=== PATIENT | female | born 1995 | race Caucasian/White ===

== ENCOUNTER 2023-12-05 20:35 | Outpatient (REF) | payer MEDICAID, SELFPAY ==
[2023-12-12 16:09] LABS: Age Gdln ACOG Testing Note (.); IGP, rfx Aptima HPV ASCU Note (.)
== END 2023-12-05 20:36 | disposition home or self-care (01) ==
LOC: LAB 20:35
PROVIDERS: Visit Provider Obstetrics & Gynecology
DX: Z01.419 Encounter for gynecological examination (general) (routine) without abnormal findings (principal)
CPT/HCPCS: G0145

== ENCOUNTER 2024-03-25 12:29 | Emergency (ER) | payer MEDICAID, SELFPAY ==
[2024-03-25 12:37] VITALS: BP 114/71; PULSE 79; TEMP 37; O2SAT 97; BMI 27.8
--- NOTE | 2024-03-25 12:49 | ED_ITS ---
HPI - Abdominal Pain General Chief Complaint: Abdominal Pain Stated Complaint: ABDOMINAL/NAUSEA Time Seen by Provider: 03/25/24 12:45 Source: patient Mode of arrival: walk-in Limitations: no limitations History of Present Illness HPI narrative: 29-year-old female presents for a 3-week history of nausea and a 4 to 5-day history of pain. LMP was March 21. The pain is in the epigastric area. She is never had gallbladder or liver issues. She had a little bit of diarrhea a few days ago. No fever or vomiting or injury. The pain is intermittent. Related Data Home Medications ?Medication ?Instructions ?Recorded ?Confirmed fluoxetine 10 mg capsule 10 mg PO DAILY 03/25/24 03/25/24 ondansetron 4 mg disintegrating 4 mg PO Q8H PRN nausea and vomiting 03/25/24 03/25/24 tablet Previous Rx's ?Medication ?Instructions ?Recorded esomeprazole magnesium 40 mg 40 mg PO DAILY 28 days #28 caps 03/25/24 capsule,delayed release (Nexium) Allergies Allergy/AdvReac Type Severity Reaction Status Date / Time cephalexin [From Keflex] Allergy Severe Swelling Verified 03/25/24 12:37 of Lip/Tongue/Throat Review of Systems ROS Narrative A ten point review of systems is negative except as noted above. Exam Narrative Exam Narrative: Nurses note and vital signs reviewed and patient is not hypoxic. General: The patient appears well and in no apparent distress. Patient is resting comfortably on cart. Skin: Warm, dry, no pallor noted. There is no rash noted. Head: Normocephalic, atraumatic Eye: Normal conjunctiva, no drainage Ears, Nose, Mouth, and Throat: oral mucosa is moist. Nares patent. Cardiovascular: Regular Rate and Rhythm Respiratory: Patient is in no distress, no accessory muscle use, lungs are clear to auscultation, no wheezing, rales or rhonchi Back: non-tender GI: Mild tenderness in the epigastric area. No masses or distention. Musculoskeletal: The patient has no evidence of calf tenderness, no pitting edema, symmetrical pulses noted bilaterally Neurological: A&O, normal speech Psychiatric: Cooperative Constitutional Vital Signs, click to edit/add: Last Vital Signs Temp 98.6 F 03/25/24 12:37 Pulse 79 03/25/24 12:37 Resp 20 03/25/24 12:37 BP 114/71 03/25/24 12:37 Pulse Ox 97 03/25/24 12:37 O2 Del Method Room Air 03/25/24 12:37 Course Vital Signs Vital signs: Vital Signs Temperature 98.6 F 03/25/24 12:37 Pulse Rate 79 03/25/24 12:37 Respiratory Rate 20 03/25/24 12:37 Blood Pressure 114/71 03/25/24 12:37 Pulse Oximetry 97 03/25/24 12:37 Oxygen Delivery Method Room Air 03/25/24 12:37 Temperature 98.6 F 03/25/24 12:37 Pulse Rate 79 03/25/24 12:37 Respiratory Rate 20 03/25/24 12:37 Blood Pressure 114/71 03/25/24 12:37 Pulse Oximetry 97 03/25/24 12:37 Oxygen Delivery Method Room Air 03/25/24 12:37 MDM - Abdominal Pain MDM Narrative Medical decision making narrative: Laboratory analysis is negative. She will be prescribed Nexium. She will follow-up with her PCP if symptoms persist and if that occurs she may need to have a gallbladder ultrasound. Findings are discussed thoroughly with the patient and her mother. I do not clinically suspect an acute intra-abdominal process at this point. Differential Diagnosis Differential diagnosis: Likely abdominal pain, constipation, gastroenteritis, pancreatitis and other (Gallstones, GERD) Lab Data Attestation: I reviewed the patient's lab results. Labs: Lab Results 03/25/24 03/25/24 Range/Units 12:59 13:03 WBC 10.7 (4.0-11.0) 10^3/uL RBC 4.42 (4.20-5.40) 10^6/uL Hgb 13.1 (12.0-16.0) g/dL Hct 38.6 (36.0-48.0) % MCV 87.3 (81.0-99.0) fL MCH 29.6 (26.7-34.0) pg MCHC 33.9 (29.9-35.2) g/dL RDW 12.6 (11.0-15.0) % Plt Count 220 (150-450) 10^3/uL MPV 9.0 L (9.5-13.5) fL Neut % (Auto) 70.2 (43.0-75.0) % Lymph % (Auto) 15.6 L (20.5-60.0) % [place] % (Auto) 4.1 (1.7-12.0) % Eos % (Auto) 9.4 H (0.9-7.0) % Baso % (Auto) 0.5 (0.2-2.0) % Neut # (Auto) 7.5 H (1.4-6.5) 10^3/uL Lymph # (Auto) 1.7 (1.2-3.8) 10^3/uL [place] # (Auto) 0.4 (0.3-0.8) 10^3/uL Eos # (Auto) 1.0 H (0.0-0.7) 10^3/uL Baso # (Auto) 0.1 (0.0-0.1) 10^3/uL Abs Immat Gran (auto) 0.02 (0.00-0.03) 10^3/uL Imm/Tot Granulo (auto) 0.2 (0.0-0.5) % Sodium 140 (136-145) mmol/L Potassium 4.3 (3.5-5.1) mmol/L Chloride 103 (98-107) mmol/L Carbon Dioxide 30.9 (21.0-32.0) mmol/L Anion Gap 10.4 BUN 10.0 (7.0-18.0) mg/dL Creatinine 0.76 (0.55-1.02) mg/dL Est GFR ( Amer) >60 (>=60) Est GFR (Non-Af Amer) >60 (>=60) BUN/Creatinine Ratio 13.2 Glucose 95 (74-106) mg/dL Calcium 9.3 (8.5-10.1) mg/dL Total Bilirubin 0.3 (0.2-1.0) mg/dL Direct Bilirubin 0.1 (0.0-0.2) mg/dL AST 15 (15-37) U/L ALT 16 (14-59) U/L Alkaline Phosphatase 63 (46-116) U/L Total Protein 7.2 (6.4-8.2) g/dL Albumin 3.9 (3.4-5.0) g/dL Globulin 3.3 g/dL Albumin/Globulin Ratio 1.2 Amylase 42 (25-115) U/L Lipase 36.0 (16.0-77.0) U/L Serum HCG, Qual Negative (NEGATIVE) Urine Color Yellow (YELLOW) Urine Clarity Clear (CLEAR) Urine pH 6.0 (5.0-9.0) Ur Specific [place] >=1.030 A (1.005-1.025) Urine Protein Negative (NEG/TRACE) mg/dL Urine Glucose (UA) Negative (NEGATIVE) mg/dL Urine Ketones Negative (NEGATIVE) mg/dL Urine Occult Blood Small A (NEGATIVE) Urine Nitrite Negative (NEGATIVE) Urine Bilirubin Negative (NEGATIVE) Urine Urobilinogen 1.0 (0.2-1.0) EU/dL Ur Leukocyte Esterase Negative (NEGATIVE) Urine RBC 2-5 A (0-2) #/HPF Urine WBC 0-2 A (NONE SEEN) #/HPF Ur Squamous Epith Cells Few A (NONE/RARE) #/LPF Urine Crystals None seen (None Seen) #/HPF Urine Bacteria Trace A (NONE SEEN) #/HPF Urine Casts None seen (NONE SEEN) #/LPF Urine Mucus Trace A (NONE SEEN) Discharge Plan Discharge Stand Alone Forms: Portal Instructions Chief Complaint: Abdominal Pain Clinical Impression: Abdominal pain Patient Disposition: Home, Self-Care Time of Disposition Decision: 14:04 Condition: Good Mode of Transportation: Private Vehicle Prescriptions / Home Meds: New esomeprazole magnesium [Nexium] 40 mg capsule,delayed release(DR/EC) 40 mg PO DAILY 28 Days Qty: 28 0RF No Action fluoxetine 10 mg capsule 10 mg PO DAILY ondansetron 4 mg tablet,disintegrating 4 mg PO Q8H PRN (Reason: nausea and vomiting) Print Language: Romansh Instructions: Abdominal Pain (ED) Referrals: Physician,Non-Staff, MD [Physician] - 1 week
--- OUTSIDE RECORDS SUMMARY | 2024-03-25 13:03 | XMS_ITS | CCD ---
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 work note as she is self-employed. Will order 2 week event monitor for her syncopal episode. This may be related to vasovagal response due to using the restroom and coughing fit right before the episode happened. Patient should drink plenty of fluids water in sports drinks and get plenty of rest. She should follow-up for event monitor results and recheck of her anxiety/depression at the end of the month or beginning of March with her PCP. JAY LITTLE APRN-CNP 02/08/24 1255 documented in this encounter [facility] 01-03-2024 History of Presen t illness Narrative Images from the original note were not included. [address] [facility] [id number] SUBJECTIVE: Patient ID: Tara Bruno is a 28 y.o. female. Chief Complaint Patient presents with Anxiety Tara presents today wishing to restart medication for her moods. She does feel she ideally depressed. Her concern is anxiety, irritability, and feels short tempered. Is managing deal of personal stressors. Custody issues with her children's father who lives out of state. Has graduated from [employer]. 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 Depression Visit: Follow-up Initial visit: Onset: 1 to 6 months ago Progression since onset: Gradually worsening Symptoms: decreased concentration, excessive worry, irritability, malaise, muscle tension and nervous/anxious Symptoms: no chest pain, no palpitations and no shortness of breath Frequency: Most days Severity: Moderate Aggravated by: Anxiety and stress Sleep quality: Good Nighttime awakenings: None PMH includes: anxiety/panic attacks and depression Treatments tried: SSRIs and non-SSRI antidepressants Compliance with treatment: Good Follow-up visit: Symptoms: decreased concentration, depressed mood, irritability, malaise, muscle tension and nervous/anxious Frequency: Most days The following portions of the patient's history were reviewed and updated as appropriate: allergies, current medications, past family history, past medical history, past social history, past surgical history and problem list. Past Surgical History: Procedure Laterality Date CERVICAL BIOPSY W/ LOOP ELECTRODE EXCISION 10/12/2017 COLPOSCOPY LEEP CERVIX N/A 10/12/2017 Performed by Sarabjit Odom MD at [facility] TONSILLECTOMY WISDOM TOOTH EXTRACTION Past Medical History: Diagnosis Date Abnormal Pap smear of cervix HSIL (high grade squamous intraepithelial lesion) on Pap smear of cervix Immunization History Administered Date(s) Administered DTaP 1996, 1996, 1996, 06/14/1997, 07/30/2002 Hepatitis B 1996, 1996, 1996 HiB 1996, 1996, 1996, 06/14/1997 IPV 1996, 1996, 1996, 07/30/2002 MMR 06/14/1997, 07/30/2002 REVIEW OF SYSTEMS: Review of Systems Constitutional: Positive for irritability. Negative for chills and fever. HENT: Negative. Eyes: Negative for visual disturbance. Respiratory: Negative for chest tightness and shortness of breath. Cardiovascular: Negative for chest pain and palpitations. Gastrointestinal: Negative. Endocrine: Negative. Genitourinary: Negative for menstrual problem and pelvic pain. Musculoskeletal: Negative. Skin: Negative. Allergic/Immunologic: Negative. Neurological: Negative for syncope and facial asymmetry. Hematological: Does not bruise/bleed easily. Psychiatric/Behavioral: Positive for decreased concentration. The patient is nervous/anxious. PHYSICAL EXAMINATION: Vitals: 01/03/24 1016 BP: 102/58 BP Site: Left Arm BP Postition: Sitting Pulse: 72 Temp: 36.3 C (97.3 F) TempSrc: Temporal SpO2: 99% Weight: 72.5 kg (159 lb 12.8 oz) Height: 157.5 cm (5' 2 ) Patient noted to have elevated BMI and the following intervention(s) were applied: encouragement to exercise. Physical Exam Vitals and nursing note reviewed. Constitutional: General: She is not in acute distress. Appearance: She is well-developed. She is not diaphoretic. HENT: Head: Normocephalic and atraumatic. Right Ear: Tympanic membrane and external ear normal. Left Ear: Tympanic membrane and external ear normal. Nose: Nose normal. Mouth/Throat: Mouth: Mucous membranes are moist. Pharynx: No oropharyngeal exudate. Eyes: General: Right eye: No discharge. Left eye: No discharge. Conjunctiva/sclera: Conjunctivae normal. Pupils: Pupils are equal, round, and reactive to light. Neck: Thyroid: No thyromegaly. Vascular: No JVD. Cardiovascular: Rate and Rhythm: Normal rate and regular rhythm. Heart sounds: Normal heart sounds. No murmur heard. No friction rub. No gallop. Pulmonary: Effort: Pulmonary effort is normal. Breath sounds: Normal breath sounds. Abdominal: General: Bowel sounds are normal. There is no distension. Palpations: Abdomen is soft. There is no mass. Tenderness: There is no abdominal tenderness. Musculoskeletal: General: Normal range of motion. Cervical back: Normal range of motion and neck supple. Lymphadenopathy: Cervical: No cervical adenopathy. Skin: General: Skin is warm and dry. Capillary Refill: Capillary refill takes less than 2 seconds. Neurological: Mental Status: She is alert and oriented to person, place, and time. Deep Tendon Reflexes: Reflexes are normal and symmetric. Psychiatric: Mood and Affect: Mood normal. Behavior: Behavior normal. Thought Content: Thought content normal. Judgment: Judgment normal. ASSESSMENT/PLAN: Tara was seen today for anxiety. Diagnoses and all orders for this visit: Anxiety and depression - FLUoxetine (PROzac) 10 mg capsule; Take 1 capsule (10 mg total) by mouth in the morning. Depression: At risk (01/03/2024) PHQ-2 PHQ-2 Score: 5 Depression scoring is 5. She feels more anxious, irritable, and feels short tempered more than she is depressed. Discussed medication options today Agreeable to start fluoxetine 10 mg oral daily \.bmi Patient noted to have elevated BMI and the following intervention(s) were applied: Discussed current weight today. Consider healthy food choices, portion control. Avoid sugary beverages and high concentrated sweets. Routine exercise regimen encouraged. ALL QUESTIONS ANSWERED Total time spent was 25 minutes: Preparing to see the patient (e.g., review of tests) Obtaining and/or reviewing separately obtained history Performing a medically appropriate examination and/or evaluation Counseling and educating the patient/family/caregiver Ordering medications, tests, or procedures Follow-up: 7 weeks JAY Knight 01/03/24 1047 documented in this encounter [facility] Evaluation note Diagnosis Anxiety and depression- Primary [facility] Diagnosis Viral upper respiratory tract infection- Primary Acute upper respiratory infections of unspecified site Chills Chills (without fever) Epigastric pain Abdominal pain, epigastric Syncope and collapse Gastroesophageal reflux disease, unspecified whether esophagitis present documented in [facility] encounter [facility]* Diagnosis Acute bacterial sinusitis- Primary Acute sinusitis, unspecified documented [facility]* Attachments The following attachments cannot be sent through Care Everywhere. * Depression ([place]izen [place]) [facility] Attachments The following attachments cannot be sent through Care Everywhere. * Acid Reflux and GERD in Adults Discharge Instructions ([place]izen [place]) [facility] encounter[facility] Center[facility]ructionsNot on file [facility] Summary Purpose Family History No Family History Records FoundNo Family History Records FoundNo Family History Records FoundNo Family History Records FoundNo Family History Records Found Advance Directives No Advanced Directives Records FoundNo Advanced Directives Records FoundNo Advanced Directives Records FoundNo Advanced Directives Records FoundNo Advanced Directives Records Found Additional Source Comments INFORMATION SOURCE (unrecogn ized section and content) DATE CREATED AUTHOR 05/10/2018 [facility] DATE CREATED AUTHOR AUTHOR'S ORGANIZ ATION 12/02/2022 Lisbeth Martinez [facility] DATE CREATED AUTHOR AUTHOR'S ORGANIZ ATION 12/05/2023 [facility] DATE CREATED AUTHOR AUTHOR'S ORGANIZ ATION 02/28/2024 [facility] DATE CREATED AUTHOR AUTHOR'S ORGANIZ ATION 03/13/2024 [facility] Reason for Visit (unrecogniz ed section and content) Reason Comments Anxiety Reason Comments Cough Cough,body aches, he adache Care Teams (unrecognized sec tion and content) Power Regulator Relationship Specialty Start Date End Date Matt Sandra APRN-YVES [address] [place] [id number] PCP - General Family Medicine 10/16/19 Power Regulator Relationship Specialty Start Date End Date Matt Sandra APRN-CNP [address] [place] [id number] PCP - General Family Medicine 10/16/19 FOR RECORDS PERTAINING TO PATIENTS WHO ARE OR HAVE BEEN ENROLLED IN A CHEMICAL DEPENDENCY/SUBSTANCEABUSE PROGRAM, SOME INFORMATION MAY BE OMITTED. This clinical summary was aggregated from multiple sources. Caution should be exercised in using it in the provision of clinical care. This summary normalizes information from multiple sources, and as a consequence, information in this document may materially change the coding, format and clinical context of patient data. In addition, data may be omitted in some cases. CLINICAL DECISIONS SHOULD BE BASED ON THE PRIMARY CLINICAL RECORDS. [facility] [employer] [facility]. provides no warranty or guarantee of the accuracy or completeness of information in this document.
[2024-03-25 13:07] LABS: Basophils Absolute Auto 0.1 10^3/uL (0.0-0.1); Basophils Percent Auto 0.5 % (0.2-2.0); Eosinophils Percent Auto 9.4 % (0.9-7.0); Hematocrit 38.6 % (36.0-48.0); Hemoglobin 13.1 g/dL (12.0-16.0); Immature Granulocytes Abs Auto 0.02 10^3/uL (0.00-0.03); Immature Granulocytes Pct Auto 0.2 % (0.0-0.5); Lymphocytes Absolute Auto 1.7 10^3/uL (1.2-3.8); Lymphocytes Percent Auto 15.6 % (20.5-60.0); Mean Corpuscular HGB Conc 33.9 g/dL (29.9-35.2); Mean Corpuscular Hemoglobin 29.6 pg (26.7-34.0); Mean Corpuscular Volume 87.3 fL (81.0-99.0); Monocytes Absolute Auto 0.4 10^3/uL (0.3-0.8); Monocytes Percent Auto 4.1 % (1.7-12.0); Neutrophils Absolute Auto 7.5 10^3/uL (1.4-6.5); Neutrophils Percent Auto 70.2 % (43.0-75.0); Platelet Count 220 10^3/uL (150-450); Red Blood Count 4.42 10^6/uL (4.20-5.40); Red Cell Distribution Width 12.6 % (11.0-15.0); White Blood Count 10.7 10^3/uL (4.0-11.0)
[2024-03-25 13:08] LABS: Bilirubin Urine NEGATIVE (NEGATIVE); Blood Urine SMALL (NEGATIVE); Clarity Urine CLEAR (CLEAR); Color Urine YELLOW (YELLOW); Glucose Urine UA NEGATIVE (NEGATIVE); Ketones Urine NEGATIVE (NEGATIVE); Leukocyte Esterase Urine NEGATIVE (NEGATIVE); Nitrite Urine NEGATIVE (NEGATIVE); Protein Urine NEGATIVE (NEG/TRACE); Specific Gravity Urine >=1.030 (1.005-1.025)
[2024-03-25 13:16] LABS: HCG Qualitative NEGATIVE (NEGATIVE)
[2024-03-25 13:19] LABS: Bacteria Urine TRACE #/HPF (NONE SEEN); Cast Seen? NONE SEEN #/LPF (NONE SEEN); Crystals Seen? None Seen #/HPF (None Seen); Mucus Urine TRACE (NONE SEEN); Squamous Epithelial Cell Urine FEW #/LPF (NONE/RARE); WBC Urine 0-2 #/HPF (NONE SEEN)
[2024-03-25 13:23] LABS: Alanine Aminotransferase 16 U/L (14-59); Albumin Globulin Ratio 1.2; Albumin Level 3.9 g/dL (3.4-5.0); Alkaline Phosphatase 63 U/L (46-116); Amylase 42 U/L (25-115); Anion Gap 10.4; Aspartate Amino Transferase 15 U/L (15-37); BUN Creatinine Ratio 13.2; Bilirubin Direct 0.1 mg/dL (0.0-0.2); Bilirubin Total 0.3 mg/dL (0.2-1.0); Calcium 9.3 mg/dL (8.5-10.1); Carbon Dioxide 30.9 mmol/L (21.0-32.0); Chloride 103 mmol/L (98-107); Estimated GFR (African America >60 (>=60); Estimated GFR (Non-African Ame >60 (>=60); Globulin 3.3 g/dL; Glucose 95 mg/dL (74-106); Potassium 4.3 mmol/L (3.5-5.1); Sodium 140 mmol/L (136-145); Total Protein 7.2 g/dL (6.4-8.2)
[2024-03-25 14:25] VITALS: PULSE 70; O2SAT 98
== END 2024-03-25 14:27 | disposition home or self-care (01) ==
PROVIDERS: Emergency Provider Emergency Medicine; PCP Nurse Practitioner
DX: R10.9 Unspecified abdominal pain (principal); R11.0 Nausea
CPT/HCPCS: 36415; 80048; 80076; 81001; 82150; 83690; 84703; 85025; 99283

== ENCOUNTER 2024-03-29 12:41 | Emergency (ER) | payer MEDICAID, SELFPAY ==
[2024-03-29 12:45] VITALS: BP 141/88; PULSE 82; TEMP 36.9; O2SAT 99; BMI 27.8
--- NOTE | 2024-03-29 13:02 | ED.ABDPAIN1 ---
HPI - Abdominal Pain General Chief Complaint: Abdominal Pain Stated Complaint: STOMACH PAIN Time Seen by Provider: 03/29/24 12:48 Source: patient Mode of arrival: walk-in Limitations: no limitations History of Present Illness HPI narrative: This patient is here complaining of epigastric pain. She was seen here couple days ago and she is in the middle of the workup. The pain does not occur in the evening hours. She had laboratory testing done previously and was going to follow-up with her primary care doctor but came back to the ER because her pain. She rates it as about a 7. She does not have family history of biliary disease. The pain has some radiation to the back but its mostly in the midline in the epigastric area. She says it feels like a giant air bubble. Is not associated with fever. She ate a lot of fruit and a eggs spinach feta cheese breakfast this morning at 9:30 AM. She has never had upper or lower endoscopy. She has not had blood in her stool. She is on a acid jill that darted 2 days ago. Related Data Home Medications ?Medication ?Instructions ?Recorded ?Confirmed fluoxetine 10 mg capsule 10 mg PO DAILY 03/25/24 03/29/24 Previous Rx's ?Medication ?Instructions ?Recorded esomeprazole magnesium 40 mg 40 mg PO DAILY 28 days #28 caps 03/25/24 capsule,delayed release (Nexium) Allergies Allergy/AdvReac Type Severity Reaction Status Date / Time cephalexin [From Keflex] Allergy Severe Swelling Verified 03/25/24 12:37 of Lip/Tongue/Throat Exam Narrative Exam Narrative: Awake alert oriented x 3 does not appear an extremis. Vital signs are stable she is afebrile. ENT does not show any evidence of pallor or anemia or scleral icterus. Abdominal examination shows her to have negative Valdes sign. Most of her symptomatic discomfort is in the epigastric area. There is no guarding rebound rigidity or peritoneal findings. Thoracic examination she has no chest discomfort or shortness of breath. Her legs are not swollen. Constitutional Vital Signs, click to edit/add: Last Vital Signs Temp 98.4 F 03/29/24 12:45 Pulse 82 03/29/24 12:45 Resp 18 03/29/24 12:45 BP 141/88 03/29/24 12:45 Pulse Ox 99 03/29/24 12:45 O2 Del Method Room Air 03/29/24 12:45 Course Vital Signs Vital signs: Vital Signs Temperature 98.4 F 03/29/24 12:45 Pulse Rate 82 03/29/24 12:45 Respiratory Rate 18 03/29/24 12:45 Blood Pressure 141/88 03/29/24 12:45 Pulse Oximetry 99 03/29/24 12:45 Oxygen Delivery Method Room Air 03/29/24 12:45 Temperature 98.4 F 03/29/24 12:45 Pulse Rate 82 03/29/24 12:45 Respiratory Rate 18 03/29/24 12:45 Blood Pressure 141/88 03/29/24 12:45 Pulse Oximetry 99 03/29/24 12:45 Oxygen Delivery Method Room Air 03/29/24 12:45 MDM - Abdominal Pain MDM Narrative Medical decision making narrative: Patient presents with epigastric discomfort. She has eaten a fair amount of food today and is not eligible for emergency department ultrasonography. Her repeat laboratory test do not show any change from her previous studies and are stable. Her symptoms are less suggestive of biliary disease and they are other etiologies. I do not believe there is emergency medical condition I will give her an order for outpatient ultrasonography to be sent the results to her primary care doctor. She can continue her acid jill medications. Lab Data Labs: Lab Results 03/29/24 Range/Units 13:01 WBC 7.2 (4.0-11.0) 10^3/uL RBC 4.44 (4.20-5.40) 10^6/uL Hgb 13.2 (12.0-16.0) g/dL Hct 38.5 (36.0-48.0) % MCV 86.7 (81.0-99.0) fL MCH 29.7 (26.7-34.0) pg MCHC 34.3 (29.9-35.2) g/dL RDW 12.3 (11.0-15.0) % Plt Count 215 (150-450) 10^3/uL MPV 9.2 L (9.5-13.5) fL Neut % (Auto) 47.5 (43.0-75.0) % Lymph % (Auto) 29.2 (20.5-60.0) % Fulton % (Auto) 5.0 (1.7-12.0) % Eos % (Auto) 17.4 H (0.9-7.0) % Baso % (Auto) 0.6 (0.2-2.0) % Neut # (Auto) 3.4 (1.4-6.5) 10^3/uL Lymph # (Auto) 2.1 (1.2-3.8) 10^3/uL Fulton # (Auto) 0.4 (0.3-0.8) 10^3/uL Eos # (Auto) 1.3 H (0.0-0.7) 10^3/uL Baso # (Auto) 0.0 (0.0-0.1) 10^3/uL Abs Immat Gran (auto) 0.02 (0.00-0.03) 10^3/uL Imm/Tot Granulo (auto) 0.3 (0.0-0.5) % Sodium 139 (136-145) mmol/L Potassium 3.7 (3.5-5.1) mmol/L Chloride 103 (98-107) mmol/L Carbon Dioxide 29.7 (21.0-32.0) mmol/L Anion Gap 10.0 BUN 11.0 (7.0-18.0) mg/dL Creatinine 0.66 (0.55-1.02) mg/dL Est GFR ( Amer) >60 (>=60) Est GFR (Non-Af Amer) >60 (>=60) BUN/Creatinine Ratio 16.7 Glucose 80 (74-106) mg/dL Calcium 8.8 (8.5-10.1) mg/dL Total Bilirubin 0.4 (0.2-1.0) mg/dL AST 15 (15-37) U/L ALT 19 (14-59) U/L Alkaline Phosphatase 64 (46-116) U/L Total Protein 7.5 (6.4-8.2) g/dL Albumin 4.1 (3.4-5.0) g/dL Globulin 3.4 g/dL Albumin/Globulin Ratio 1.2 Lipase 50.0 (16.0-77.0) U/L Discharge Plan Discharge Stand Alone Forms: Portal Instructions Chief Complaint: Abdominal Pain Clinical Impression: Abdominal pain Patient Disposition: Home, Self-Care Time of Disposition Decision: 14:05 Prescriptions / Home Meds: No Action fluoxetine 10 mg capsule 10 mg PO DAILY esomeprazole magnesium [Nexium] 40 mg capsule,delayed release(DR/EC) 40 mg PO DAILY 28 Days Qty: 28 0RF Print Language: Hungarian Additional Instructions: Continue present medications. Have your gallbladder ultrasound. Referrals: MATT BRODERICK [Primary Care Provider] - 1 week
[2024-03-29 13:26] LABS: Basophils Percent Auto 0.6 % (0.2-2.0); Eosinophils Absolute Auto 1.3 10^3/uL (0.0-0.7); Eosinophils Percent Auto 17.4 % (0.9-7.0); Hematocrit 38.5 % (36.0-48.0); Hemoglobin 13.2 g/dL (12.0-16.0); Immature Granulocytes Abs Auto 0.02 10^3/uL (0.00-0.03); Immature Granulocytes Pct Auto 0.3 % (0.0-0.5); Lymphocytes Absolute Auto 2.1 10^3/uL (1.2-3.8); Lymphocytes Percent Auto 29.2 % (20.5-60.0); Mean Corpuscular HGB Conc 34.3 g/dL (29.9-35.2); Mean Corpuscular Hemoglobin 29.7 pg (26.7-34.0); Mean Corpuscular Volume 86.7 fL (81.0-99.0); Mean Platelet Volume 9.2 fL (9.5-13.5); Monocytes Absolute Auto 0.4 10^3/uL (0.3-0.8); Neutrophils Absolute Auto 3.4 10^3/uL (1.4-6.5); Neutrophils Percent Auto 47.5 % (43.0-75.0); Platelet Count 215 10^3/uL (150-450); Red Blood Count 4.44 10^6/uL (4.20-5.40); Red Cell Distribution Width 12.3 % (11.0-15.0); White Blood Count 7.2 10^3/uL (4.0-11.0)
[2024-03-29 13:40] LABS: Alanine Aminotransferase 19 U/L (14-59); Albumin Globulin Ratio 1.2; Albumin Level 4.1 g/dL (3.4-5.0); Alkaline Phosphatase 64 U/L (46-116); Aspartate Amino Transferase 15 U/L (15-37); BUN Creatinine Ratio 16.7; Bilirubin Total 0.4 mg/dL (0.2-1.0); Calcium 8.8 mg/dL (8.5-10.1); Carbon Dioxide 29.7 mmol/L (21.0-32.0); Chloride 103 mmol/L (98-107); Estimated GFR (African America >60 (>=60); Estimated GFR (Non-African Ame >60 (>=60); Globulin 3.4 g/dL; Glucose 80 mg/dL (74-106); Potassium 3.7 mmol/L (3.5-5.1); Sodium 139 mmol/L (136-145); Total Protein 7.5 g/dL (6.4-8.2)
== END 2024-03-29 14:25 | disposition home or self-care (01) ==
PROVIDERS: Emergency Provider Emergency Medicine Emergency Medical Services; PCP Nurse Practitioner
DX: R10.13 Epigastric pain (principal)
CPT/HCPCS: 36415; 80053; 83690; 85025; 99283

== ENCOUNTER 2024-03-30 06:59 | Outpatient (OUT) | payer MEDICAID, SELFPAY ==
--- OUTSIDE RECORDS SUMMARY | 2024-03-30 07:01 | XMS_ITS | CCD ---
Author Organization [facility] Care Team Providers Care Ocean Export Coordinator Name Role Phone PEDRO, DR TRAN Admitting Unavailable PEDRO, DR TRAN Attending Unavailable SNADRA, MATT Primary Care Unavailable PEDRO, DR TRAN Consulting Unavailable PEDRO, DR TRAN Admitting Unavailable PEDRO, DR TRAN Attending Unavailable PEDRO, DR TRAN Consulting Unavailable SANDRA, MATT Primary Care Unavailable Zieber, DR Paez Consulting Unavailable PEDRO, DR TRAN Admitting Unavailable PEDRO, DR TRAN Attending Unavailable SANDRA, MATT Primary Care Unavailable PEDRO, DR TRAN Consulting Unavailable SAHARA APODACA Consulting Unavailable CHELSEA VASQUEZ Attending Unavailable Sandra COCONUT CANDY MAKER-Matt MARINELLI Primary Care Provid er CUCO ABDULLAHI [...] (1 source) Cephalexin Drug Allergy 11-14-2011 [facility] Repository (5 sources) Cephalexin; Translations: [CEPHALEXIN] Drug [...] 02-08-2024 External Poct Influenza A Antigen Negative [facility] External Poct Influenza B Antigen Negative [facility] SARS-CoV-2 (COVID-19) Ag IA.rapid Ql (Resp) Negative [facility] POCT rapid strep Aon 024 Internal Critical Care Nurse Specialist Check Completed and Passed Yes [facility] Interpretation and review of laboratory results Normal [facility] S. pyogenes Ag IA Ql (Unsp spec) Negative Negative [facility] US PELVIS AND TRANSVAGon US PELVIS AND [...] by: SAHARA APODACA Date: 2022-12-01 08:05 Normal [facility] US PELVIS TRANSVAGon 022 US PELVIS [...] by: YAMEL GOMEZ Date: 2022-02-10 14:27 Normal [facility] Vital Signs Date Time Vital Sign Value Performing Clinician Faci lity 02-08-2024 11:53-0400 Body height 157.5 cm Cuco Abdullahi C[employer]ON[employer] CANDY MAKER-TRAINING CONSULTANT Work Phone: [facility] [employer] [facility] 02-08-2024 11:53-0400 Body mass index (BMI) [Ratio] 28.9 kg/m2 Cuco Abdullahi [employer] MAKER-TRAINING CONSULTANT Work Phone: [facility] [employer] [facility] 02-08-2024 11:53-0400 Body temperature 98.2 [degF] Cuco Abdullahi [employer] MAKER-TRAINING CONSULTANT Work Phone: [facility] [employer] [facility] 02-08-2024 11:53-0400 Body weight 71.67 kg Cuco Abdullahi [employer] MAKER-TRAINING CONSULTANT Work Phone: [facility] 02-08-2024 11:53-0400 Diastolic blood pressure 68 mm[Hg] Cuco Abdullahi [employer] MAKER-TRAINING CONSULTANT Work Phone: [facility] [employer] [facility] 02-08-2024 11:53-0400 Heart rate 97 /min Cuco Abdullahi [employer] MAKER-TRAINING CONSULTANT Work Phone: [facility] [employer] [facility] 02-08-2024 11:53-0400 Respiratory rate 18 /min Cuco Abdullahi [employer] MAKER-TRAINING CONSULTANT Work Phone: [facility] 02-08-2024 11:53-0400 SaO2% (BldA) [Mass fraction] 97 % Cuco Abdullahi [employer] MAKER-TRAINING CONSULTANT Work Phone: [facility] 02-08-2024 11:53-0400 Systolic blood pressure 112 mm[Hg] Cuco Abdullahi C[employer]ON[employer] MAKER-TRAINING CONSULTANT Work Phone: [facility] [employer] [facility] 01-03-2024 10:16-0500 Body height 157.5 cm Matt Sandra APRN-TRAINING CONSULTANT Work Phone: [facility] 01-03-2024 10:16-0500 Body mass index (BMI) [Ratio] 29.23 kg/m2 Matt Sandra [employer] MAKER-TRAINING CONSULTANT Work Phone: [facility] 01-03-2024 10:16-0500 Body temperature 97.3 [degF] Matt Sandra APRN-TRAINING CONSULTANT Work Phone: [facility] 01-03-2024 10:16-0500 Body weight 72.48 kg Matt Sandra APRN-TRAINING CONSULTANT Work Phone: [facility] 01-03-2024 10:16-0500 Diastolic blood pressure 58 mm[Hg] Matt Sandra APRN-TRAINING CONSULTANT Work Phone: [facility] 01-03-2024 10:16-0500 Heart rate 72 /min Matt Sandra APRN-TRAINING CONSULTANT Work Phone: [facility] 01-03-2024 10:16-0500 SaO2% (BldA) [Mass fraction] 99 % Matt Sandrakale ALVAREZ-TRAINING CONSULTANT Work Phone: [facility] 01-03-2024 10:16-0500 Systolic blood pressure 102 mm[Hg] Mattelizabeth Sandra APRN-TRAINING CONSULTANT Work Phone: [facility] Encounters Encounter Date Encounter Type Care Provider Facility Start: 03-12-2024 End: 03-12-2024 ambulatory [facility] Start: 02-27-2024 End: 02-28-2024 ambulatory [facility] Start: 02-09-2024 Telephone encounter Mikala Murphy CMA [facility] Start: 02-08-2024 End: 02-08-2024 ambulatory [facility] Start: 02-08-2024 End: 02-08-2024 Office outpatient visit 15 minutes [facility] COCONUT CANDY MAKERTRAINING CONSULTANT Work Phone: [facility] Comment on above: Viral upper respirat ory tract infection (Primary Dx); Chills; Epigastric pain; Syncope and collapse; Gastroesophageal reflux disease, unspecified whether esophagitis present Start: 01-03-2024 End: 01-03-2024 ambulatory MATT SANDRA [facility] Start: 01-03-2024 End: 01-03-2024 Office outpatient visit 15 minutes Matt Sandra C[employer]ON[employer] CANDY MAKER-TRAINING CONSULTANT Work Phone: [facility] Comment on above: Anxiety and depressi on (Primary Dx) Start: 12-05-2023 End: 12-05-2023 ambulatory CHELSEA VASQUEZ Not Available Start: 12-01-2022 End: 12-01-[address] CHELSEA VASQUEZ Facility:[facility] Start: 11-30-2022 End: 12-01-[address] CHELSEA VASQUEZ Facility:[facility] Start: 02-10-2022 End: 02-11-[address] CHELSEA VASQUEZ Facility:[facility] Start: 07-29-2017 End: 07-29-2017 Emergency department patient visit [facility] Procedures Date Procedure Procedure Detail Performing Clinician Start: 03-12-2024 Follow-up visit Follow-up MATT SANDRA Start: 02-08-2024 Iaadiadoo streptococ cus group a Cuco Abdullahi C[employer]ON[employer] CANDY MAKER-TRAINING CONSULTANT Work Phone: Start: 02-08-2024 POCT INFLUENZA A/INF LUENZA B/SARS-COV-2 VERITOR Cuco Abdullahi C[employer]ONUT CANDY MAKER-TRAINING CONSULTANT Work Phone: Start: 02-08-2024 Adult depression scr eening assessment Cuco Abdullahi COCON[employer] CANDY MAKER-TRAINING CONSULTANT Work Phone: Start: 01-03-2024 Adult depression scr eening assessment Matt Sandra COCONUT CANDY MAKER-TRAINING CONSULTANT Work Phone: Start: 08-09-2018 Microscopic observat ion [Identifier] in Cervix by Cyto stain Matt Sandra [employer]ON[employer] CANDY MAKER-TRAINING CONSULTANT Work Phone: Plan of Treatment Date Care Activity Detail Author Start: 02-07-2025 Adult BMI Screening Adult BMI Screen ing [facility] Start: 02-07-2025 Depression Screening Depression Scre ening [facility] Start: 02-07-2025 Tobacco Screening Tobacco Screening [facility] Start: 01-03-2025 Adult BMI Follow Up Plan Adult BMI Follow Up Plan [facility] Start: 01-03-2025 Adult BMI Screening Adult BMI Screen ing [facility] Start: 01-03-2025 Depression Screening Depression Scre ening [facility] Start: 01-03-2025 Tobacco Screening Tobacco Screening [facility] Start: 03-12-2024 End: 03-12-2024 Patient encounter procedure 03/12/2024 11:20 AM EDT Office Visit [facility] [address] [place] [address] Matt Sandra, COCONUT CANDY MAKER-TRAINING CONSULTANT [address] [place] [address] [facility] Start: 02-21-2024 End: 02-21-2024 Patient encounter procedure 02/21/2024 9:40 AM EDT Office Visit [facility] [address] [place] [address] Matt Sandra, COCONUT CANDY MAKER-TRAINING CONSULTANT [address] [place] [address] [facility] Start: 02-08-2024 End: 02-07-2025 Event monitor Event monitor Cardiac Services Routine Syncope and collapse Expected: 02/08/2024, Expires: 02/07/2025 [facility] Work Phone: Comment on above: Expected: 02/08/2024 , Expires: 02/07/2025 Start: 08-09-2021 Screening for malign ant neoplasm of cervix Pap Smear [facility] Start: 02-02-2007 DTaP,Tdap and Td Vaccines (6 - Tdap) DTaP,Tdap and Td Vaccines (6 - Tdap) [facility] Immunizations Immunization Date Immunization Notes Care Provider Fa cilimarianne 07-30-2002 diphtheria, tetanus toxoids and acellular pertussis vaccine Matt Sandra COCONUT CANDY MAKER-TRAINING CONSULTANT Work Phone: [facility] 07-30-2002 measles, mumps and rubella virus vaccine Matt Boaz COCON[employer] CANDY MAKER-[facility] Work Phone: [facility] 07-30-2002 poliovirus vaccine, inactivated Matt Sandra COCON[employer] CANDY MAKER-[facility] Work Phone: [facility] 06-14-1997 diphtheria, tetanus toxoids and acellular pertussis vaccine Matt Boaz [employer]AND[employer] MAKER-[facility] Work Phone: [facility] 06-14-1997 haemophilus influenz ae type b vaccine, conjugate unspecified formulation Matt Sandra [employer]ON[employer] CANDY MAKER-[facility] Work Phone: [facility] 06-14-1997 measles, mumps and rubella virus vaccine Matt Sandra [employer]ON[employer] CANDY MAKER-[facility] Work Phone: [facility] 1996 diphtheria, tetanus toxoids and acellular pertussis vaccine Matt Boaz C[employer]ON[employer] CANDY MAKER-[facility] Work Phone: [facility] 1996 haemophilus influenz ae type b vaccine, conjugate unspecified formulation Matt Boaz [facility] Work Phone: [facility] 1996 hepatitis B vaccine, adult dosage Matt Boaz COCONUT CANDY MAKER-[facility] Work Phone: [facility] 1996 poliovirus vaccine, inactivated Matt Boaz [employer]ON[employer] CANDY MAKER-[facility] Work Phone: [facility] 1996 diphtheria, tetanus toxoids and acellular pertussis vaccine Matt Boaz [employer]ON[employer] CAND[employer] MAKER-[facility] Work Phone: [facility] 1996 haemophilus influenz ae type b vaccine, conjugate unspecified formulation Matt Sandra [employer]ON[employer] CANDY MAKER-[facility] Work Phone: [facility] 1996 poliovirus vaccine, inactivated Matt Sandra [employer]ON[employer] CANDY MAKER-[facility] Work Phone: [facility] 1996 diphtheria, tetanus toxoids and acellular pertussis vaccine Matt Sandra [facility] Work Phone: [facility] 1996 haemophilus influenz ae type b vaccine, conjugate unspecified formulation Matt Sandra [facility] Work Phone: [facility] 1996 hepatitis B vaccine, adult dosage Matt Sandra [facility] Work Phone: [facility] 1996 poliovirus vaccine, inactivated Matt [facility] Work Phone: [facility] 1996 hepatitis B vaccine, adult dosage Matt Sandra [facility] Work Phone: [facility] Payers Date Payer Category Payer Medicaid [id number] 2022 Medicaid [place] MED[place] [id number] 2022-Present [address] [place] [address] [id number] 2017 Unknown [id number] 1996 Unknown [id number] 1996 Unknown [id number] 1996 Unknown [id number] 1996 Unknown [id number] 1996 Unknown [id number] 1996 Unknown [id number] 1996 Unknown [id number] 1996 Unknown [id number] 1959 Unknown [id number] Social History Date Type Detail Facility Start: 01-03-2024 Tobacco smoking stat RUSTIS Never smoked tobacco [facility] Start: 01-03-2024 Tobacco use and exposure Smoke less tobacco non-user [facility] Start: 01-03-2024 End: 02-08-2024 Alcohol intake Current non-drinker of alcohol (finding) [facility] Start: 10-15-2021 End: 02-08-2024 History of Social function [facility] Start: 10-15-2021 End: 02-08-2024 Social connection and isolation panel [facility] Do you belong to any clubs or organizations such as worship groups, unions, fraternal or athletic groups, or school groups? No [facility] Are you now , , , , never or living with a partner? Never [facility] How often to you hav e a drink containing alcohol? Monthly or less [facility] How many standard dr inks containing alcohol do you have on a typical day? 1 or 2 [facility] How often do you hav e 6 or more drinks on 1 occasion? Less than monthly [facility] How hard is it for y ou to pay for the very basics like food, housing, medical care, and heating Somewhat hard [facility] Adolescent depressio n screening assessment 5 [facility] Do you feel stress - tense, restless, nervous, or anxious, or unable to sleep at night because your mind is troubled all the time - these days [OSQ] Rather much [facility] Start: 10-19-2019 Education 12 [facility] Start: 1995 Sex Assigned At Not on file P [facility] Clinical Notes 01-03-2024 to 02-09-2024 Telephone Encounter [...] to her local pharmacy? Zpak sent to [email or web address] pharmacy. 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 I called and read your note. Pt will get scheduled after this illness documented in this encounter [facility] 02-09-2024 Telephone encount er Note Pt called and was in to see you yesterday 02/07 and is stuffed up today and coughing up yellow. Could you send in something to her local pharmacy? [facility] 02-09-2024 Telephone encount er Note Zpak sent to [email or web address] pharmacy. 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 [facility] 02-09-2024 Telephone encount er Note I called and read your note. Pt will get scheduled after this illness [facility] 02-08-2024 History of Presen t illness Narrative [address] [place] [address] Patient: Tara Bruno Date of : 1995 [...] 10/12/2017 Performed by Sarabjit Odom MD at [facility] TONSILLECTOMY WISDOM TOOTH EXTRACTION Current Outpatient Medications [...] APRN-CNP 02/08/24 1255 documented in this encounter [facility] 01-03-2024 History of Presen t illness Narrative Images from the original note were not included. [address] [facility] [address] SUBJECTIVE: Patient ID: Tara Bruno is a 28 y.o. female. Chief Complaint Patient presents with Anxiety Tara presents today wishing to restart medication for her moods. She does feel she ideally depressed. Her concern is anxiety, irritability, and feels short tempered. Is managing deal of personal stressors. Custody issues with her children's father who lives out of state. Has graduated from [employer]. 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 Depression [...] 10/12/2017 Performed by Sarabjit Odom MD at [facility] TONSILLECTOMY WISDOM TOOTH EXTRACTION Past Medical [...] Knight 01/03/24 1047 documented in this encounter [facility] Evaluation note Diagnosis Anxiety and depression- Primary documented in this encounter [facility] Diagnosis Viral upper respiratory tract infection- Primary Acute upper respiratory infections of unspecified site Chills Chills (without fever) Epigastric pain Abdominal pain, epigastric Syncope and collapse Gastroesophageal reflux disease, unspecified whether esophagitis present documented in this encounter [facility] Diagnosis Acute bacterial sinusitis- Primary Acute sinusitis, unspecified documented in this encounter [facility]* Attachments The following attachments cannot be sent through Care Everywhere. * Depression (Lithuanian) [facility] Attachments The following attachments cannot be sent through Care Everywhere. * Acid Reflux and GERD in Adults Discharge Instructions (Lithuanian) documented [facility] [place]ructions[place] [facility] [place] Summary Purpose Family History No Family History [...] AUTHOR AUTHOR'S ORGANIZ ATION 12/02/2022 [facility] DATE CREATED AUTHOR AUTHOR'S ORGANIZ ATION 12/05/2023 [facility] DATE CREATED AUTHOR AUTHOR'S ORGANIZ ATION 02/28/2024 [facility] DATE CREATED AUTHOR AUTHOR'S ORGANIZ ATION 03/13/2024 [facility] Reason for Visit (unrecogniz ed section and content) Reason Comments Anxiety Reason Comments Cough Cough,body aches, he adache Care Teams (unrecognized sec tion and content) Ocean [employer] Coordinator Relationship Specialty Start Date End Date Matt Sandra APRN-YVES [address] [place] [address] PCP - General Family Medicine 10/16/19 [employer] Coordinator Relationship Specialty Start Date End Date Matt Sandra APRN-CNP [address] [place] [address] PCP - General Family Medicine 10/16/19 FOR [...] BE BASED ON THE PRIMARY CLINICAL RECORDS. [facility]. provides no warranty or guarantee of the accuracy or completeness of information in this document.
--- NOTE | 2024-03-30 07:02 | US_ITS ---
[address] [address] Patient Name: BRANDIE BRUNO MRN: [id number] date: 1995 Sex: F Assigned Patient Location: US Current Patient Location: Accession/Order Number: [id number] Exam Date: 03/30/2024 07:03 Report Date: 03/30/2024 07:36 At the request of: FCO BARBA Procedure: US right upper quadrant EXAM: US right upper quadrant HISTORY: Gallstones COMPARISON: None. TECHNIQUE: Grayscale, color and Doppler FINDINGS: The liver is normal in size, contour and echotexture measuring 14.7 cm in length. No focal hepatic mass. Hepatopedal flow in the main portal vein with a velocity of 37 cm/s. The gallbladder is normal in size. The wall measures 2 mm, normal. Negative sonographic Valdes sign. Common bile duct measures 2 mm, normal. The visualized pancreas is normal The right kidney is normal measuring 11.2 x 5.5 x 4.3 cm. No solid mass, hydronephrosis or obstructing nephrolithiasis US/US right upper quadrant IMPRESSION: Normal exam Electronically authenticated by: SAHARA TOLEDO Date: 03/30/2024 07:36
== END 2024-03-30 07:00 | disposition home or self-care (01) ==
LOC: US 06:59
PROVIDERS: PCP Nurse Practitioner; Visit Provider Emergency Medicine Emergency Medical Services
DX: K80.20 Calculus of gallbladder without cholecystitis without obstruction (principal)
CPT/HCPCS: 76705

== ENCOUNTER 2024-12-11 20:38 | Outpatient (REF) | payer MEDICAID, SELFPAY ==
--- OUTSIDE RECORDS SUMMARY | 2024-12-11 20:43 | XMS_ITS | CCD ---
Author Organization [facility] Care Team Providers Care Eyeglass Fitter Name Role Phone PEDRO, DR TRAN Admitting [...] TRAN Consulting Unavailable SAHARA APODACA Consulting Unavailable PEDRO, CHELSEA Attending Unavailable Sandra PALLIATIVE NURSE-TONGUER, Matt J Primary Care [facility] er CUCO ABDULLAHI Referring Unavailable SANDRA, MATT J Primary Care Unavailable CUCO ABDULLAHI Attending Unavailable SANDRA, MATT J Referring Unavailable SANDRA, MATT J Primary Care Unavailable SANDRA, MATT J Attending Unavailable SANDRA, MATT J Referring Unavailable SANDRA, MATT J Primary Care Unavailable SANDRA, MATT J Attending Unavailable SANDRA, MATT J Referring Unavailable SANDRA, MATT J Primary Care Unavailable Allergies Allergy Classification Reported Allergen(s) Allergy Type Date of Onset Reaction(s) Facility (1 source) Cephalexin Drug Allergy 11-14-2011 [facility] Repository (6 sources) Cephalexin; Translations: [CEPHALEXIN] Drug Allergy 07-29-2017 Anaphylaxis [facility] Medications Current Medications Medication Drug Class(es) Dates Sig (Normalized) Sig (Original) azithromycin 250 mg oral tablet (1 source) Macrolide Antimicrobial Start: 02-09-2024 End: 02-13-2024 azithromycin (ZITHROMAX) 250 mg tablet Indications: Acute bacterial sinusitis Take 2 tablets the first day, then 1 tablet daily for 4 days. 6 tablet 0 02/09/2024 02/13/2024 Active FLUoxetine 10 mg oral capsule (5 sources) Serotonin Reuptake Inhibitor Start: 01-03-2024 End: 03-12-2024 take 1 capsule by mouth in the morning FLUoxetine (PROzac) 10 mg capsule Indications: Anxiety and depression Take 1 capsule (10 mg total) by mouth in the morning. 90 capsule 1 03/12/2024 Active ondansetron 4 mg disintegrating oral tablet (1 source) Serotonin-3 Receptor Antagonist Start: 03-12-2024 take 1 tablet by mouth every eight hours as needed for nausea and vomiting and nausea and nausea ondansetron ODT (ZOFRAN ODT) 4 mg disintegrating tablet Indications: Nausea Dissolve 1 tablet (4 mg total) on tongue every 8 (eight) hours as needed for nausea or vomiting. 12 tablet 03/12/2024 Active Completed/Discontinued Medications Medication Drug Class(es) Dates [...] Problem Date Documented Date Episodic/Chronic Abdominal pain (12 sources) Pelvic and perineal pain; Translations: [Epigastric pain] Onset: 10-22-2019 Episodic Anxiety disorders (4 sources) Mixed anxiety and depressive disorder; Translations: [...] HUMAN PAPILLOMAVIRUS] Onset: 12-01-2022 Episodic Mood disorders (5 sources) Mood disorders; Translations: [Depression, unspecified] Onset: 01-03-2024 Resolved: 03-12-2024 01-03-2024 Nausea and vomiting (2 sources) Nausea; Translations: [Nausea] Onset: 03-12-2024 03-12-2024 Episodic Other lower respiratory disease (1 [...] [Chills (without fever)] Onset: 02-08-2024 Episodic Syncope (4 sources) Syncope and collapse; Translations: [Syncope and collapse] Onset: 02-08-2024 02-08-2024 Episodic Past or Other Problems Problem Classification Problem Date Documented Date Episodic/Chronic Cancer of cervix (4 sources) Cervicovaginal cytology: 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; Translations: [High grade squamous intraepithelial lesion on cytologic smear of cervix (HGSIL)] Onset: 09-14-2017 Resolved: 10-22-2019 10-22-2019 Episodic Other connective tissue disease (1 source) Other muscle spasm; Translations: [Other muscle spasm] Onset: 07-29-2017 Episodic Ovarian cyst (1 source) Unspecified ovarian cyst, left side; Translations: [UNSPECIFIED OVARIAN CYST LEFT SIDE] Onset: 02-12-2022 Episodic Unclassified (4 sources) Onset: 01-03-2024 Resolved: 03-12-2024 01-03-2024 Results Test Name Value Interpretation Reference Range Facil ity POCT , urineon 02-13 Beta HCG ( test) Ql (U) Negative [facility] POCT Influenza A/Influenza B /SARS-COV-2 VeritorOrdered By: Ellie Ruvalcaba on 02-08-2024 External Poct Influenza A Antigen Negative [facility] External Poct Influenza B Antigen Negative [facility] SARS-CoV-2 (COVID-19) Ag IA.rapid Ql (Resp) Negative [facility] POCT rapid strep Aon 024 Internal Care Taker Check Completed and Passed Yes [facility] Interpretation and review of laboratory results Normal [facility] S. pyogenes Ag IA Ql (Unsp spec) Negative Negative [facility] US PELVIS AND TRANSVAGon US PELVIS [...] by: SAHARA APODACA Date: 2022-12-01 08:05 Normal [facility] US PELVIS TRANSVAGon 022 US PELVIS TRANSVAG [...] by: YAMEL GOMEZ Date: 2022-02-10 14:27 Normal [facility] Vital Signs Date Time Vital Sign Value Performing Clinician Senthil montgomery 07-03-2024 15:040 Body height 157.48 cm [facility] 07-03-2024 15:040 Body mass index (BMI) [Ratio] 29.2 kg/m2 [facility] 07-03-2024 15: Body weight 72.57 kg [facility] 03-12-2024 11:040 Body height 157.5 cm Matt Sandraloreta THOMPSON Work Phone: [facility] 03-12-2024 11:21-0400 Body mass index (BMI) [Ratio] 28.55 kg/m2 Matt Sandraloreta ALVAREZ-TONGUER Work Phone: [facility] 03-12-2024 11:21-0400 Body temperature 98.1 [degF] Matt Sandraloreta ALVAREZ-TONGUER Work Phone: [facility] 03-12-2024 11:21-0400 Body weight 70.81 kg Matt Sandraloreta ALVAREZ-TONGUER Work Phone: [facility] [employer] [facility] 03-12-2024 11:21-0400 Diastolic blood pressure 68 mm[Hg] Matt Sandra APRN-TONGUER Work Phone: [facility] 03-12-2024 11:21-0400 Heart rate 79 /min Matt Sandraloreta ALVAREZ-TONGUER Work Phone: [facility] 03-12-2024 11:21-0400 Respiratory rate 20 /min Matt Sandra APRN-TONGUER Work Phone: [facility] 03-12-2024 11:21-0400 SaO2% (BldA) [Mass fraction] 100 % Matt Sandra APRN-TONGUER Work Phone: [facility] 03-12-2024 11:21-0400 Systolic blood pressure 110 mm[Hg] Matt Sandra PALLIATIVE NURSE-TONGUER Work Phone: [facility] 02-08-2024 11:53-0400 Body height 157.5 cm Cuco Abdullahi PALLIATIVE NURSE-TONGUER Work Phone: [facility] 02-08-2024 11:53-0400 Body mass index (BMI) [Ratio] 28.9 kg/m2 Cuco Abdullahi PALLIATIVE NURSE-TONGUER Work Phone: [facility] 02-08-2024 11:53-0400 Body temperature 98.2 [degF] Cuco Abdullahi PALLIATIVE NURSE-TONGUER Work Phone: [facility] [employer] [facility] 02-08-2024 11:53-0400 Body weight 71.67 kg Cuco Abdullahi PALLIATIVE NURSE-TONGUER Work Phone: [facility] 02-08-2024 11:53-0400 Diastolic blood pressure 68 mm[Hg] uCco Abdullahi PALLIATIVE NURSE-TONGUER Work Phone: [facility] 02-08-2024 11:53-0400 Heart rate 97 /min Cucobradley Abdullahi PALLIATIVE NURSE-TONGUER Work Phone: [facility] [employer] [facility] 02-08-2024 11:53-0400 Respiratory rate 18 /min Cuco Abdullahi PALLIATIVE NURSE-TONGUER Work Phone: [facility] 02-08-2024 11:53-0400 SaO2% (BldA) [Mass fraction] 97 % Cucobradley Abdullahi PALLIATIVE NURSE-TONGUER Work Phone: [facility] 02-08-2024 11:53-0400 Systolic blood pressure 112 mm[Hg] Cuco Abdullahi APRN-TONGUER [facility] 01-03-2024 10:16-0500 Body height 157.5 cm Matt Sandra APRN-TONGUER [facility] 01-03-2024 10:16-0500 Body mass index (BMI) [Ratio] 29.23 kg/m2 Matt Sandra APRN-TONGUER [facility] 01-03-2024 10:16-0500 Body temperature 97.3 [degF] Matt Sandra APRN-TONGUER [facility] 01-03-2024 10:16-0500 Body weight 72.48 kg Matt Sandra PALLIATIVE NURSE-TONGUER [facility] 01-03-2024 10:16-0500 Diastolic blood pressure 58 mm[Hg] Matt Sandra PALLIATIVE NURSE-TONGUER [facility] 01-03-2024 10:16-0500 Heart rate 72 /min Matt Sandra APRN-TONGUER [facility] 01-03-2024 10:16-0500 SaO2% (BldA) [Mass fraction] 99 % Matt Sandra APRN-TONGUER [facility] 01-03-2024 10:16-0500 Systolic blood pressure 102 mm[Hg] Matt Sandra PALLIATIVE NURSE-TONGUER [facility] En[facility]ters Encounter Date Encounter Type Care Provider Facility Start: 07-03-2024 End: 07-03-2024 ambulatory [facility] Work Phone: Start: 07-03-2024 End: 07-03-2024 Patient encounter procedure [facility] Work Phone: Start: 04-10-2024 Non-patient / Non-visit [facility] Work Phone: Start: 03-12-2024 End: 03-12-2024 ambulatory [facility] Start: 03-12-2024 End: 03-12-2024 Office outpatient visit 15 minutes Matt Sandra PALLIATIVE NURSE-TONGUER Work Phone: [facility] Comment on above: Anxiety and depressi on (Primary Dx); Nausea; Syncope, unspecified syncope type Start: 02-27-2024 End: 02-28-2024 [facility] Start: 02-09-2024 Telephone encounter Mikala sultana CMA [facility] Start: 02-08-2024 End: 02-08-2024 ambulatory [facility] Start: 02-08-2024 End: 02-08-2024 Office outpatient visit 15 minutes [facility] PALLIATIVE NURSE-TONGUER Work Phone: [facility] Comment on above: Viral upper respirat ory tract infection (Primary Dx); Chills; Epigastric pain; Syncope and collapse; Gastroesophageal reflux disease, unspecified whether esophagitis present Start: 01-03-2024 End: 01-03-2024 ambulatory [facility] Start: 01-03-2024 End: 01-03-2024 Office outpatient visit 15 minutes Matt Sandra PALLIATIVE NURSE-TONGUER Work Phone: [facility] Comment on above: Anxiety and depressi on (Primary Dx) Start: 12-05-2023 End: 12-05-2023 ambulatory CHELSEA VASQUEZ Not Available Start: 12-01-2022 End: 12-01-[address] CHELSEA VASQUEZ Facility:[facility] Start: 11-30-2022 End: 12-01-[address] CHELSEA VASQUEZ Facility:[facility] Start: 02-10-2022 End: 02-11-[address] CHELSEA VASQUEZ Facility:[facility] Start: 07-29-2017 End: 07-29-2017 Emergency department patient visit [facility] Procedures Date Procedure Procedure Detail Performing Clinician Start: 03-12-2024 Follow-up visit Follow-up MATT SANDRA Start: 03-12-2024 Urine test visual color cmprsn meths Matt Sandra PALLIATIVE NURSE-[facility] Work Phone: Start: 03-12-2024 Adult depression scr eening assessment Matt Sandra PALLIATIVE NURSE-[facility] Work Phone: Start: 02-08-2024 Iaadiadoo streptococ cus group a Cuco Abdullahi PALLIATIVE NURSEEnrich Social ProductionsTONGUER Work Phone: Start: 02-08-2024 POCT INFLUENZA A/INF LUENZA B/SARS-COV-2 VERITOR Cuco Garcia Osmany PALLIATIVE NURSEEnrich Social ProductionsTONGUER Work Phone: Start: 02-08-2024 Adult depression scr eening assessment Cucobradley Abdullahi PALLIATIVE NURSE-[facility] Work Phone: Start: 01-03-2024 Adult depression scr eening assessment Matt Ascencioillo PALLIATIVE NURSE-[facility] Work Phone: Start: 08-09-2018 Microscopic observat ion [Identifier] in Cervix by Cyto stain Matt Sandra PALLIATIVE NURSEEnrich Social [facility] Work Phone: Plan of Treatment Date Care Activity Detail Author Start: 03-12-2025 Adult BMI Screening Adult BMI Screen ing [facility] Start: 03-12-2025 [facility] Start: 03-12-2025 Tobacco Screening Tobacco Screening [facility] Start: 02-07-2025 Adult BMI Screening Adult BMI Screen ing [facility] Start: 02-07-2025 Depression Screening Depression Scre ening [facility] Start: 02-07-2025 Tobacco Screening Tobacco Screening [facility] Start: 01-03-2025 Adult BMI Follow Up Plan Adult BMI Follow Up Plan [facility] Start: 01-03-2025 Adult BMI Screening Adult BMI Screen ing [facility] Start: 01-03-2025 Depression Screening Depression Scre ening [facility] Start: 01-03-2025 Tobacco Screening Tobacco Screening [facility] Start: 03-12-2024 End: 03-12-2024 Patient encounter procedure 03/12/2024 11:20 AM EDT Office Visit [facility] [address] [place] [address] Matt Sandra, PALLIATIVE NURSE-TONGUER [address] [place] [address] [facility] Start: 02-21-2024 End: 02-21-2024 Patient encounter procedure 02/21/2024 9:40 AM EDT Office Visit [facility] [address] [place] [address] Matt Sandra, PALLIATIVE NURSE-TONGUER [address] [place] [address] [facility] Start: 02-08-2024 End: 02-07-2025 Event monitor Event monitor Cardiac Services Routine Syncope and collapse Expected: 02/08/2024, Expires: 02/07/2025 [facility] Work Phone: Comment on above: Expected: 02/08/2024 , Expires: 02/07/2025 Start: 08-09-2021 Screening for malign ant neoplasm of cervix Pap Smear [facility] Start: 02-02-2007 DTaP,Tdap and Td Vaccines (6 - Tdap) DTaP,Tdap and Td Vaccines (6 - Tdap) [facility] End: 03-12-2025 Basic metabolic 2000 panel - Serum or Plasma Basic Metabolic Panel Lab Routine Nausea 1 Occurrences starting 03/12/2024 until 03/12/[address] [facility] Comment on above: 1 Occurrences starti ng 03/12/2024 until 03/12/2025 End: 03-12-2025 CBC W Auto Differential panel - Blood CBC auto differential Lab Routine Nausea 1 Occurrences starting 03/12/2024 until 03/12/2025 [facility] Work [facility]: Comment on above: 1 Occurrences starti ng 03/12/2024 until 03/12/2025 Hepatic function panel [facility] US Abdomen limited [facility] Immunizations Immunization Date Immunization Notes Care Provider Fa cilimarianne 07-30-2002 diphtheria, tetanus toxoids and acellular pertussis vaccine Matt Sandra PALLIATIVE NURSE-[facility] Work Phone: [facility] 07-30-2002 measles, mumps and rubella virus vaccine Matt Sandra PALLIATIVE NURSE-[facility] Work Phone: [facility] 07-30-2002 poliovirus vaccine, inactivated Matt Sandra PALLIATIVE NURSE-[facility] Work Phone: [facility] 06-14-1997 diphtheria, tetanus toxoids and acellular pertussis vaccine Matt Sandra PALLIATIVE NURSE-[facility] Work Phone: [facility] 06-14-1997 haemophilus influenz ae type b vaccine, conjugate unspecified formulation Matt Sandra PALLIATIVE NURSE-[facility] Work Phone: [facility] 06-14-1997 measles, mumps and rubella virus vaccine Matt Sandra PALLIATIVE NURSE-[facility] Work Phone: [facility] 1996 diphtheria, tetanus toxoids and acellular pertussis vaccine Matt Sandra PALLIATIVE NURSE-[facility] Work Phone: [facility] 1996 haemophilus influenz ae type b vaccine, conjugate unspecified formulation Matt Sandra PALLIATIVE NURSE-[facility] Work Phone: [facility] 1996 hepatitis B vaccine, adult dosage Matt Sandra PALLIATIVE NURSE-[facility] Work Phone: [facility] 1996 poliovirus vaccine, inactivated Matt Sandra PALLIATIVE NURSE-[facility] Work Phone: [facility] 1996 diphtheria, tetanus toxoids and acellular pertussis vaccine Matt Sandra PALLIATIVE NURSE-TONGUER Work Phone: [facility] 1996 haemophilus influenz ae type b vaccine, conjugate unspecified formulation Matt Sandra PALLIATIVE NURSE-TONGUER Work Phone: [facility] 1996 poliovirus vaccine, inactivated Matt Sandra PALLIATIVE NURSE-TONGUER Work Phone: [facility] 1996 diphtheria, tetanus toxoids and acellular pertussis vaccine Matt Sandra PALLIATIVE NURSE-TONGUER Work Phone: [facility] 1996 haemophilus influenz ae type b vaccine, conjugate unspecified formulation Matt Sandra PALLIATIVE NURSE-TONGUER Work Phone: [facility] 1996 hepatitis B vaccine, adult dosage Matt Sandra PALLIATIVE NURSE-TONGUER Work Phone: [facility] 1996 poliovirus vaccine, inactivated Matt Sandra PALLIATIVE NURSE-TONGUER Work Phone: [facility] 1996 hepatitis B vaccine, adult dosage Matt Sandra PALLIATIVE NURSE-TONGUER Work Phone: [facility] Payers Date Payer Category Payer Medicaid [id number] 2022 Medicaid [place] [id number] 2022-Present [address] [place] [address] [id number] 2017 Unknown [id number] 1996 Unknown [id number] 1996 Unknown [id number] 1996 Unknown [id number] 1996 Unknown [id number] 1996 Unknown [id number] 1996 Unknown [id number] 1996 Unknown [id number] 1996 Unknown [id number] 1959 Unknown [id number] Social History Date Type Detail Facility Start: 01-03-2024 End: 07-03-2024 Tobacco smoking status MAIS Never smoked tobacco [facility] Start: 01-03-2024 Tobacco use and exposure Smoke less tobacco non-user [facility] Start: 01-03-2024 End: 03-12-2024 Alcohol intake Current non-drinker of alcohol (finding) [facility] Start: 10-15-2021 End: 03-12-2024 History of Social function [facility] Start: 10-15-2021 End: 03-12-2024 Social connection and isolation panel [facility] Do you belong to any clubs or organizations such as sikh groups, unions, fraternal or athletic groups, or school groups? No [facility] Are you now , , , , never or living with a partner? Never [facility] How often to you hav e a drink containing alcohol? Monthly or less [facility] How many standard dr inks containing alcohol do you have on a typical day? 1 or 2 [facility] How often do you hav e 6 or more drinks on 1 occasion? Less than monthly [facility] How hard is it for y ou to pay for the very basics like food, housing, medical care, and heating Somewhat hard [facility] Adolescent depressio n screening assessment 5 [facility] Do you feel stress - tense, restless, nervous, or anxious, or unable to sleep at night because your mind is troubled all the time - these days [OSQ] Rather much [facility] Start: 10-19-2019 Education 12 [facility] Start: 1996 Sex Assigned At Not on file P [employer] Start: 1996 Sex Assigned At Female F [facility] Clinical Notes 01-03-2024 to 04-02-2024 Note Date & Type Note Facility 04-02-2024 Evaluation note Authored July 03, 2024 3:25pm 29-year-old female referred to the GI clinic for evaluation of upper abdominal pain. +upper abdominal pain that has resolved few months ago. She states that she still gets intermittent abdominal discomfort but less severe than how it was Will check CBC, LFTs and Lipase Will arrange US of the upper abdomen [facility] Work Phone: [phone] 560-469404-29-2024 History of Present illness Narrative* JAY Knight - 03/12/2024 11:20 AM EDT Images from the original note were not included. [address] [facility] [address] SUBJECTIVE: Patient ID: Tara Islas is a 29 y.o. female. Chief Complaint Patient presents with Follow-up Nausea in the morning times 3 days Her primary concern is experiencing nausea upon awakening for over one week. She is not using birthcontrol. Is sexually active. She does not believe she is but not really sure. Moods have been overall stable with fluoxetine 10 mg oral daily At last visit, she was seen by another provider at the practice. Last seen on 02/08/24. Was seen forURI symptoms, but shared with provider she passed out in her hallway. Believes she was possibly lying for 5-10 minutes. Was not witnessed. Was ordered an event monitor for two weeks. States she only wore for a week but took it off. The adhesive was irritating her skin. Has not returned the monitor back for reading yet. Was initiated on 02/27/24. Denies any further episode of syncope since this event in January. Follow-up Associated symptoms include nausea. Pertinent negatives include no chest pain, chills, fever or rash. Nothing aggravates the symptoms. She has tried rest, eating and drinking for the symptoms. The treatment provided moderate relief. Depression Visit: Follow-up Initial visit: Symptoms: nausea Symptoms: no chest pain, no palpitations and no shortness of breath Follow-up visit: Symptoms: decreased concentration, depressed mood and nervous/anxious Frequency: Rarely Severity: Mild Current Treatment: SSRI's Response to treatment: Stable The following portions of the patient's history were reviewed and updated as appropriate: allergies, current medications, past family history, past medical history, past social history, past surgicalhistory and problem list. Past Surgical History: Procedure Laterality Date CERVICAL BIOPSY W/ LOOP ELECTRODE EXCISION 10/12/2017 COLPOSCOPY LEEP CERVIX N/A 10/12/2017 Performed by Sarabjit Odom MD at [facility] TONSILLECTOMY WISDOM TOOTH EXTRACTION Past Medical History: Diagnosis Date Abnormal Pap smear of cervix HSIL (high grade squamous intraepithelial lesion) on Pap smear of cervix Immunization History Administered Date(s) Administered DTaP 1996, 1996, 1996, 06/14/1997, 07/30/2002 Hepatitis B 1996, 1996, 1996 HiB 1996, 1996, 1996, 06/14/1997 IPV 1996, 1996, 1996, 07/30/2002 MMR 06/14/1997, 07/30/2002 REVIEW OF SYSTEMS: Review of Systems Constitutional: Negative for chills and fever. HENT: Negative. Eyes: Negative. Negative for visual disturbance. Respiratory: Negative for chest tightness and shortness of breath. Cardiovascular: Negative for chest pain and palpitations. Gastrointestinal: Positive for nausea. Endocrine: Negative. Genitourinary: Negative for menstrual problem and pelvic pain. Musculoskeletal: Negative. Skin: Negative for rash. Allergic/Immunologic: Negative. Neurological: Negative for syncope and facial asymmetry. Hematological: Does not bruise/bleed easily. Psychiatric/Behavioral: Negative. PHYSICAL EXAMINATION: Vitals: 03/12/24 1121 BP: 110/68 BP Site: Left Arm BP Postition: Sitting Pulse: 79 Resp: 20 Temp: 36.7 C (98.1 F) TempSrc: Oral SpO2: 100% Weight: 70.8 kg (156 lb 1.6 oz) Height: 157.5 cm (5' 2 ) Patient noted to have elevated BMI and the following intervention(s) were applied: encouragement toexercise. Physical Exam Vitals and nursing note reviewed. [...] normal. ASSESSMENT/PLAN: Tara was seen today for follow-up. Diagnoses and all orders for this visit: Nausea - POCT , urine - CBC auto differential; Future - Basic Metabolic Panel; Future - ondansetron ODT (ZOFRAN ODT) 4 mg disintegrating tablet; Dissolve 1 tablet (4 mg total) on tongueevery 8 (eight) hours as needed for nausea or vomiting. Anxiety and depression - FLUoxetine (PROzac) 10 mg capsule; Take 1 capsule (10 mg total) by mouth in the morning. Syncope, unspecified syncope type Nausea Without vomiting or other symptomology She is currently not using control methods to prevent . POCT urine test negative in office today New orders for Zofran 4 mg ODT as directed PRN Check CBC with diff, CMP 2. Anxiety and depression Depression: Not at risk (03/12/2024) PHQ-2 PHQ-2 Score: 0 Recent Concern: Depression - At risk (02/08/2024) PHQ-2 PHQ-2 Score: 5 Continue fluoxetine 10 mg oral daily If become , I informed her to stop fluoxetine. 3. Syncope Episode in January when she was ill with URI. Was seen in office by different provider. Event monitor2 week duration was ordered. Initiated on 02/27/24. Only completed one week due to skin reaction to adhesive. Still has monitor. I encourage her to return for readings to be done. She has had no further episodes. Body mass index is 28.55 kg/m . Patient noted to have elevated BMI and [...] patient/family/caregiver Ordering medications, tests, or procedures Follow-up: Next scheduled Awaiting event monitor results Sooner if symptoms do not resolve. JAY Knight 03/12/24 1305 documented in this encounterBlanchard Valley Health [facility] Bluff[facility] HospitalCue [facility] [id number] Miscellaneous Notes* Telephone Encounter - Mikala Murphy CMA - 02/09/2024 9:06 AM EDT Pt called and was in to see you yesterday 02/07 and is stuffed up today and coughing up yellow. Could you send in something to her local pharmacy? * Telephone Encounter - JAY Knight - 02/09/2024 9:06 AM EDT [facility]. Please remind her to do cardiac rehabilitation specialist as ordered by Melinda. * Telephone Encounter - Mikala Murphy CMA - 02/09/2024 9:06 AM EDT I called and read your note. Pt will get scheduled after this illness documented [facility] Telephone encounter Note* Telephone Encounter - Mikala Murphy CMA - 02/09/2024 9:06 AM EDT Pt called and was in to see you yesterday 02/07 and is stuffed up today and coughing up yellow. Could you send in something to her local pharmacy? [facility] Telephone encounter Note* Telephone Encounter - JAY Knight - 02/09/2024 9:06 AM EDT [facility]. Please remind her to do cardiac rehabilitation specialist as ordered by Melinda. [facility]03-28-2024 Telephone encounter Note* Telephone Encounter - Mikala Murphy CMA - 02/09/2024 9:06 AM EDT I called and read your note. Pt will get scheduled after this illness [facility]03-27-2024 History of Present illness Narrative* JAY Little - 02/08/2024 11:40 AM EDT [address] [place] [address] Patient: Tara Islas Date of : 1995 Encounter Date: 02/08/2024 [...] did get a 1 time episode of sharppain in her upper back yesterday and it [...] past medical history, past social history, past surgicalhistory and problem list. 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 This may be related to vasovagal responsedue to using the restroom and coughing fit right before the episode happened. Patient should drink plenty of fluids water in sports drinks and get plenty of rest. She should follow-up for event monitor results and recheck of her anxiety/depression at the end of the month or beginning of March with her PCP. JAY LITTLE APRN-CNP 02/08/24 1255 documented in [address]02-20-2024 History of Present illness Narrative* JAY Knight - 01/03/2024 10:15 AM EST Images from the original note were not included. [address] [facility] [address] SUBJECTIVE: Patient ID: Tara Islas is a 28 y.o. female. Chief Complaint Patient presents with Anxiety Tara presents today wishing to restart medication for her moods. She does feel she ideally depressed. Her concern is anxiety, irritability, and feels short tempered. Is managing deal of personal stressors. Custody issues with her children's father who lives out of state. Has graduated from [employer]. 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 Depression [...] past medical history, past social history, past surgicalhistory and problem list. Past Surgical History: Procedure Laterality Date CERVICAL BIOPSY W/ LOOP ELECTRODE EXCISION 10/12/2017 COLPOSCOPY LEEP CERVIX N/A 10/12/2017 Performed by Sarabjit Odom MD at [facility] TONSILLECTOMY WISDOM TOOTH EXTRACTION Past Medical [...] and the following intervention(s) were applied: encouragement toexercise. Physical Exam Vitals and nursing note reviewed. [...] JAY Knight 01/03/24 1047 documented in [address]Mer[facility] CenterEvaluation note* Diagnosis Anxiety and depression- Primary documented in this encounter [facility]* Diagnosis Viral upper respiratory tract infection- Primary Acute upper respiratory infections of unspecified site Chills Chills (without fever) Epigastric pain Abdominal pain, epigastric Syncope and collapse Gastroesophageal reflux disease, unspecified whether esophagitis present documented in this encounter [facility] Diagnosis Acute bacterial sinusitis- Primary Acute sinusitis, unspecified documented in this encounter [facility]* Diagnosis Anxiety and depression- Primary Nausea Nausea alone Syncope, unspecified syncope type documented in this encounter [facility] CenterInstructions* Attachments The following attachments cannot be sent through Care Everywhere. * Depression (Rwandan) documented in this encounterMer[facility] St. [facility] CenterInstructions* Attachments The following attachments cannot be sent through Care Everywhere. * Acid Reflux and GERD in Adults Discharge Instructions (Rwandan) documented in this encounterMercy Health St. Rita's Medical CenterInstructionsNot on file documented in this encounterMercy Health St. [facility] CenterInstructions* Attachments The following attachments cannot be sent through Care Everywhere. * Nausea and Vomiting, Adult (Rwandan) documented in this [facility] Summary Purpose Family History Relationship Condition Age at Onset Recorded Date/T shahid maternal grandmother Malignant neoplasm Unknown paternal grandmother Malignant neoplasm Unknown maternal grandfather Diabetes mellitus Unknown Advance Directives Advance Directive Response Recorded Date/ Time Advance Directives No April 10 1:45pm Chief Complaint and Reason for Visit Chief Complaint Refer by Matt sofia, epigastric & RUQ pain Additional Source Comments INFORMATION SOURCE (unrecogn ized section and content) DATE CREATED AUTHOR 05/10/2018 [facility] DATE CREATED AUTHOR AUTHOR'S ORGANIZ ATION 12/02/2022 [facility] DATE CREATED AUTHOR AUTHOR'S ORGANIZ ATION 12/05/2023 [facility] EPIC DATE CREATED AUTHOR AUTHOR'S ORGANIZ ATION 02/28/2024 [facility] DATE CREATED AUTHOR AUTHOR'S ORGANIZ ATION 03/13/2024 [facility] Reason for Visit (unrecogniz ed section and content) Reason Comments Anxiety Reason Comments Cough Cough,body aches, he adache Reason Comments Follow-up Nausea in the mornin g times 3 days Care Teams (unrecognized sec tion and content) Eyeglass Fitter Relationship Specialty Start Date End Date Matt Sandra APRN-CNP [address] [place] [address] PCP - General Family Medicine 10/16/19 Eyeglass Fitter Relationship Specialty Start Date End Date Matt Sandra APRN-CNP [address] [place] [address] PCP - General Family Medicine 10/16/19 Team Status: Active Member Role Status Dates NON STAFF Primary Care Provider Active Team Status: Active Member Role Status Dates Gricelda Prince DO Attending Provider Active St art: April 10, 2024 Team Status: Inactive Member Role Status Dates Danny Alonzo MD Attending Provider Active Start: July 03, 2024 End: July 03, 2024 NON STAFF Primary Care Provider Active Start: July 03, 2024 End: July 03, 2024 Eyeglass Fitter Relationship Specialty Start Date End Date Matt Sandra APRN-CNP [address] [place] [phone] PCP - General Family Medicine 10/16/19 Goals (unrecognized section and content) Goals may be documented in a n alternate section FOR RECORDS PERTAINING TO PATIENTS WHO ARE [...] BE BASED ON THE PRIMARY CLINICAL RECORDS. [employer] [facility]. provides no warranty or guarantee of the accuracy or completeness of information in this document.
[2024-12-17 12:08] LABS: Age Gdln ACOG Testing Note (.); IGP, rfx Aptima HPV ASCU Note (.)
== END 2024-12-11 20:39 | disposition home or self-care (01) ==
LOC: LAB 20:38
PROVIDERS: PCP Nurse Practitioner; Visit Provider Obstetrics & Gynecology
DX: Z01.419 Encounter for gynecological examination (general) (routine) without abnormal findings (principal)
CPT/HCPCS: 88175

== ENCOUNTER 2025-01-25 13:27 | Outpatient (OUT) | payer MEDICAID, SELFPAY ==
[2025-01-25 13:57] LABS: BOX Test Reference Lab UNITY; BOX Test Sent Out UNITY
[2025-01-25 13:59] LABS: Basophils Percent Auto 0.2 % (0.2-2.0); Eosinophils Absolute Auto 0.1 10^3/uL (0.0-0.7); Eosinophils Percent Auto 0.5 % (0.9-7.0); Hematocrit 35.4 % (36.0-48.0); Hemoglobin 12.4 g/dL (12.0-16.0); Immature Granulocytes Abs Auto 0.03 10^3/uL (0.00-0.03); Immature Granulocytes Pct Auto 0.3 % (0.0-0.5); Lymphocytes Absolute Auto 1.8 10^3/uL (1.2-3.8); Lymphocytes Percent Auto 16.9 % (20.5-60.0); Mean Corpuscular Hemoglobin 30.2 pg (26.7-34.0); Mean Corpuscular Volume 86.3 fL (81.0-99.0); Mean Platelet Volume 8.8 fL (9.5-13.5); Monocytes Absolute Auto 0.6 10^3/uL (0.3-0.8); Monocytes Percent Auto 5.8 % (1.7-12.0); Neutrophils Percent Auto 76.3 % (43.0-75.0); Platelet Count 197 10^3/uL (150-450); Red Cell Distribution Width 12.8 % (11.0-15.0); White Blood Count 10.4 10^3/uL (4.0-11.0)
[2025-01-25 14:08] LABS: Amphetamine Screen Urine NEGATIVE (NEGATIVE); Barbiturates Screen Urine NEGATIVE (NEGATIVE); Benzodiazepines Screen Urine NEGATIVE (NEGATIVE); Buprenorphine Screen Urine NEGATIVE (NEGATIVE); Cannabinoid Screen Urine NEGATIVE (NEGATIVE); Cocaine Screen Urine NEGATIVE (NEGATIVE); Methadone Screen Urine NEGATIVE (NEGATIVE); Methamphetamines Screen Urine NEGATIVE (NEGATIVE); Opiate Screen Urine NEGATIVE (NEGATIVE); Oxycodone Screen Urine NEGATIVE (NEGATIVE); Phencyclidine Screen Urine NEGATIVE (NEGATIVE); Tricyclic Antidepressant Urine NEGATIVE (NEGATIVE)
[2025-01-25 15:24] LABS: Estimated Average Glucose 97 mg/dL
[2025-01-26 06:07] LABS: Rubella Antibodies, IgG 3.35 index (Immune >0.99)
[2025-01-26 07:07] LABS: HBsAg Screen Negative (Negative); HCV Ab Non Reactive (Non Reactive); HIV Ab/p24 Ag Screen Non Reactive (Non Reactive)
[2025-01-26 11:14] LABS: Rapid Plasma Reagin, Quant Non Reactive titer (NonRea<1:1)
== END 2025-01-25 13:28 | disposition home or self-care (01) ==
LOC: LAB 13:28
PROVIDERS: PCP Nurse Practitioner; Visit Provider Obstetrics & Gynecology
DX: Z34.01 Encounter for supervision of normal first pregnancy, first trimester (principal); Z36.0 Encounter for antenatal screening for chromosomal anomalies; N92.6 Irregular menstruation, unspecified
CPT/HCPCS: 36415; 80307; 83036; 85025; 86592; 86762; 86803; 86850; 86900; 86901; 87086; 87340; 87389

== ENCOUNTER 2025-04-10 14:01 | Outpatient (OUT) | payer MEDICAID, SELFPAY ==
--- OUTSIDE RECORDS SUMMARY | 2025-04-03 09:30 | XMS_ITS | Encounter Summary ---
Author Organization [facility] Address [address] [facility] [place] [address] Care Team Providers Care Cotton Bag Sewer Name Role Phone Radha Calix Unavailable [phone] Reason for Visit * Reason Comments Routine Visit Encounter Details Date Type Department Care Team ([facility] st Contact Info) Description 04/03/2025 9:30 AM EDT Routine [facility] OB [address] [place] [address] Josi Cardoza PA [address] [facility] [address] [place], [facility]11 Second trimester ; 18 weeks gestation of ; Screening, , for anatomic survey; Screening examination for STI; Need for maternal serum alpha-protein (MSAFP) screening Social History Tobacco Use Types Packs/Day Years Used Date Smoking Tobacco: Never Smokeless Tobacco: Never Alcohol Use Standard Drinks/Week Comments Never 0 (1 standard drink = 0.6 oz pur e alcohol) Estimated Date of Delivery Comme nts Yes 08/25/2025 Based on last me nstrual period of 11/18/2024 Sex and Gender Information Value Date Recorded Sex Assigned at Not on file Legal Sex Female 11:47 PM EDT Gender Identity Not on file Sexual Orientation Not on file documented as of this encounter Last Filed Vital Signs Vital Sign Reading Time Taken Comments Blood Pressure 116/72 04/03/2025 9:41 AM EDT Pulse - - Temperature - - Respiratory Rate - - Oxygen Saturation - - Inhaled Oxygen Concentration - - Weight 79.4 kg (175 lb) 04/03/2025 9:41 AM EDT Height - - Body Mass Index 31 11/30/2022 12:00 PM EST documented in this encounter Progress Notes * DAVID Reid - 04/03/2025 9:30 AM EDT Reason for Appointment: Patient ID: Tara Islas is a 30 y.o. female who presents for Routine Visit Patient presents today for Return OB appointment. And cultures MEDICATIONS Current Outpatient Medications Medication Instructions Ciclopirox 1 % shampoo wash affected area on the trunk in the shower DAILY until clear, let sit 3-5MINUTES then rinse off esomeprazole (NEXIUM) 40 mg, Daily FLUoxetine (PROZAC) 10 mg, Oral, Nightly ondansetron ODT (ZOFRAN-ODT) 4 mg, Every 8 hours PRN propylene glycol liquid external solution triamcinolone (Kenalog) 0.1 % cream APPLY a thin layer to trunk and extremities TWICE DAILY NEEDED ALLERGIES Allergies Allergen Reactions Cephalexin Anaphylaxis and Rash Throat swelled up and itching PROBLEMS Active Ambulatory Problems Diagnosis Date Noted No Active Ambulatory Problems Resolved Ambulatory Problems Diagnosis Date Noted No Resolved Ambulatory Problems Past Medical History: Diagnosis Date Abdominal cramping Abnormal uterine bleeding (AUB) BMI 24.0-24.9, adult Generalized abdominal pain H/O LEEP Lack of appetite Missed menses Uses control Verruca HISTORY PAST MEDICAL HISTORY SOCIAL HISTORY Past Medical History: Diagnosis Date Abdominal cramping Abnormal uterine bleeding (AUB) BMI 24.0-24.9, adult Generalized abdominal pain H/O LEEP Lack of appetite Missed menses Uses control Verruca Social History Tobacco Use Smoking status: Never Smokeless tobacco: Never Substance Use Topics Alcohol use: Never Drug use: Never FAMILY HISTORY Family History Problem Relation Name Age of Onset Cancer Maternal Grandmother Diabetes Maternal Grandfather SURGICAL HISTORY Past Surgical History: Procedure Laterality Date CERVICAL BIOPSY W/ LOOP ELECTRODE EXCISION OTHER SURGICAL HISTORY Laser Surgery WISDOM TOOTH EXTRACTION 2012 wisdom teeth REVIEW OF SYSTEMS Review of Systems: Review of Systems Constitutional: Negative. HENT: Negative. Eyes: Negative. Respiratory: Negative. Cardiovascular: Negative. Gastrointestinal: Negative. Genitourinary: Negative. Musculoskeletal: Negative. Skin: Negative. Neurological: Negative. All other systems reviewed and are negative. Hematological: Negative. Endocrine: Negative. Allergic/Immunologic: Negative. OBJECTIVE Objective: Physical Exam Constitutional: Appearance: Normal appearance. She is normal weight. HENT: Head: Normocephalic. Cardiovascular: Rate and Rhythm: Normal rate. Pulses: Normal pulses. Pulmonary: Effort: Pulmonary effort is normal. Breath sounds: Normal breath sounds. Abdominal: Palpations: Abdomen is soft. Musculoskeletal: General: Normal range of motion. Neurological: General: No focal deficit present. Mental Status: She is alert and oriented to person, place, and time. Psychiatric: Mood and Affect: Mood normal. Behavior: Behavior normal. Thought Content: Thought content normal. Judgment: Judgment normal. Vitals and nursing note reviewed. Vitals: Estimated body mass index is 29.94 kg/m?? as calculated from the following: Height as of 11/30/22: 5' 3 . Weight as of 02/26/25: 169 lb. BP: Patient's last menstrual period was 11/18/2024. ASSESSMENT & PLAN ICD-10-CM 1. Second trimester Z34.92 POCT urinalysis dipstick manually resulted 2. 18 weeks gestation of Z3A.18 3. Screening, , for anatomic survey Z36.89 US OB 14+ weeks anatomy scan 4. Screening examination for STI Z11.3 SURESWAB(R) ADVANCED VAGINITIS PLUS, TMA CHLAMYDIA TRACHOMATIS (GENITO/STI) Neisseria gonorrhea DNA probe, direct 5. Need for maternal serum alpha-protein (MSAFP) screening Z36.1 Alpha fetoprotein, maternal Alpha fetoprotein, maternal Return OB: Patient presents today for a routine obstetrics appointment. Patient is currently 19w3d . Patient states she is doing well but has complaints of being tired due to current . Patient has verbalizes frequent movement. Orders Placed This Encounter Procedures US OB 14+ weeks anatomy scan CHLAMYDIA TRACHOMATIS (GENITO/STI) Neisseria gonorrhea DNA probe, direct Alpha fetoprotein, maternal POCT urinalysis dipstick manually resulted Follow Up: Patient is to return to office in 4 week for routine OB appointment. Documented by Zulma Phelps MA on behalf of: DAVID Reid documented in this encounter Plan of Treatment Upcoming Encounters Date Type Department Care Team (Late st Contact Info) Description 05/02/2025 8:50 AM EDT Routine [facility] OB [address] [place] [id number] Henok Lopez, DO [address] [place] [address] 12/16/2025 2:00 PM EST Office Visit [facility] [address] [place] [address] Henok Lopez, DO [address] [facility] [facility] [place] [address] Scheduled Orders Name Type Priority Associated Diagnoses Orde r Schedule SURESWAB(R) ADVANCED VAGINITIS PLUS, TMA Pathology and Cytology Routine Screening examination for STI Ordered: 04/03/2025 CHLAMYDIA TRACHOMATIS (GENITO/STI) Lab Routine Screening examination for STI Ordered: 04/03/2025 Neisseria gonorrhea DNA probe, direct Lab Routine Screening examination for STI Ordered: 04/03/2025 Alpha fetoprotein, maternal Lab Routine Need for maternal serum alpha-protein (MSAFP) screening Expected: 04/03/2025 (Approximate), Expires: 05/04/2025 US OB 14+ weeks anatomy scan Imaging Routine Screening, , for anatomic survey Expected: 04/03/2025, Expires: 07/04/2025 documented as of this encounter Procedures Procedure Name Priority Date/Time Associated Diagnosis Comments POCT URINALYSIS DIPSTICK Routine 04/03/2025 10:01 AM EDT Second trimester documented in this encounter Results * (ABNORMAL) POCT urinalysis dipstick manually resulted (04/03/2025 10:01 AM EDT) Color, UA Yellow Clarity, UA Clear Glucose, UA Positive Negative - 2000(110) ++++ mg/dL Comment:100 Bilirubin, UA Negative Negative - 4(70) +++ mg/dL Ketones, UA Negative Negative - 160(16) ++++ mg/dL Spec Grav, UA 1.020 1 - 1.03 Blood, UA Positive Negative - 50 Abhi/mcL Comment:trace pH, UA 6.0 5 - 9 Protein, UA Trace Negative - 1999(20) ++++ mg/dL Urobilinogen, UA 0.2 0.2 - 12 mg/dL Leukocytes, UA Positive Negative - 500+++ Pura/mcL Comment:small Nitrite, UA Negative Negative - Positive Urine 04/03/2025 10:0 1 AM EDT Josi HERNANDEZ POINT OF CARE TEST ENTER/EDIT OR DERABLES Final Result documented in this encounter Visit Diagnoses Diagnosis Second trimester state, incidental 18 weeks gestation of Screening, , for anatomic survey Encounter for anatomic survey Screening examination for STI Need for maternal serum alpha-protein (MSAFP) screening documented in this encounter Care Teams Cotton Bag Sewer Relationship Specialty Start Date End Date Radha Calix PA PCP - [facility] Diana BURDEN 05/14/24 documented as of this encounter
--- NOTE | 2025-04-10 14:03 | US_ITS ---
[address] [address] Patient Name: BRANDIE BRUNO MRN: [id number] date: 1995 Sex: F Assigned Patient Location: [place] Current Patient Location: Accession/Order Number: [id number] Exam Date: 04/10/2025 16:04 Report Date: 04/10/2025 16:04 At the request of: CHELSEA VASQUEZ DO Procedure: US OB cervical length Obstetrical ultrasound to assess for cervical length Cervical length 3.9 cm. Os closed. US/US OB cervical length IMPRESSION: Cervical length 3.9 cm. Impression dictated by: Ashish Wynn M.D. 04/10/2025 4:04 PM Dictation Location: [place] [address] Electronically authenticated by: [id number] Y Date: 04/10/2025 16:04
--- NOTE | 2025-04-10 14:03 | US_ITS ---
The [address] [address] Patient Name: RBANDIE BRUNO MRN: [id number] date: 1995 Sex: F Assigned Patient Location: US Current Patient Location: US Accession/Order Number: [id number] Exam Date: 04/10/2025 16:00 Report Date: 04/10/2025 16:04 At the request of: CHELSEA VASQUEZ DO Procedure: US OB anatomy Obstetrical Ultrasound for Fetus greater than 14 weeks HISTORY: anatomy assessment heart rate is 153 bpm. The fetus is in transverse presentation with transverse lie. The placenta is in a anterior fundalposition with normal appearance. Amniotic fluid index is subjectively normal The cervix has a length of 3.9cm. Cervical os closed. The estimated weight is 430 g.. with percentile to 94.2%. The ovaries are not visualized. No fluid identified in the cul-de-sac. Following anatomy identified. Ventricles, cerebellum, posterior fossa, nose and lips, orbits, four-chamber heart, right ventricular outflow track and left ventricular outflow track, diaphragm, stomach, kidneys, cord insertion, bladder, umbilical arteries, three-vessel cord, spine, and extremities. The biparietal diameter measures 5.0 cmcm consistent with 21 weeks 1 day. Head circumference measures 18.2cm consistent with 20 weeks 4 days. Abdominal circumference measures 17.2cm consistent with 22 weeks 1 day. Femur length is 3.5cm consistent with 20 weeks 1 day. The average gestational age is 21 weeks 2 days. Estimated due date is 08/19/2025. somatic motion identified. US/US OB anatomy IMPRESSION: Single live intrauterine gestation 21 weeks 2 days. The anatomy as above. Impression dictated by: Ashish Wynn M.D. 04/10/2025 4:04 PM Dictation Location: [employer] Electronically authenticated by: [id number] Y Date: 04/10/2025 16:04
--- OUTSIDE RECORDS SUMMARY | 2025-04-10 14:03 | XMS_ITS | Encounter Summary ---
Author Organization [facility] Address [address] [facility] [place] [address] Care Team Providers Care Engineer Rf Deployment Name Role Phone Radha Calix Unavailable Encounter Details Date Type Department Care Team (Late Contact Info) Description 04/03/2025 External Result Encounter [facility] External Department Unsolicited Josi Cardoza PA [address] [place], [facility] Social History Tobacco Use Types Packs/Day Years [...] on file documented as of this encounter Plan of Treatment Upcoming Encounters Date Type Department Care Team (Late Contact Info) Description 05/02/2025 8:50 AM EDT Routine [facility] OB [address] [place] [address] Henok Lopez DO [address] [place], [place] [id number] 12/16/2025 2:00 PM EST Office Visit [facility] [address] [place] [address] Henok Lopez [address] [place] [id number] documented as of this encounter Procedures Procedure Name Priority Date/Time Associated Diagnosis Comments RECURRENT VAGINITIS (HTRX) Routine 04/03/2025 12:58 PM EDT documented in this encounter Results * (ABNORMAL) RECURRENT VAGINITIS (HTRX) (04/03/2025 12:58 PM EDT) [facility] ATOPOBIUM VAGINAE 27.450(A) 19.961 - 24.689 ppm 04/04/2025 6:19 AM EDT [facility] ATOPOBIUM VAGINAE Detected(A) 19.961 - 24.689 ppm 04/04/2025 6:19 AM EDT [facility] BVAB 2,3 (BACTERIAL VAGINOSIS ASSOCIATED BACTERIA 2, 3); MOBILUNCUS SPP 17.543(A) 19.961 - 24.689 ppm 04/04/2025 6:19 AM EDT [facility] BVAB 2,3 (BACTERIAL VAGINOSIS ASSOCIATED BACTERIA 2, 3); MOBILUNCUS SPP Detected(A) 19.961 - 24.689 ppm 04/04/2025 6:19 AM EDT [facility] AYSHA ALBICANS, PARAPSILOSIS, TROPICALIS 0.000 19.961 - 30.770 ppm 04/04/2025 6:19 AM EDT [facility] AYSHA ALBICANS, PARAPSILOSIS, TROPICALIS Not Detected 19.961 - 30.770 ppm 04/04/2025 6:19 AM EDT [facility] YASHA GLABRATA 0.000 23.000 - 32.138 ppm 04/04/2025 6:19 AM EDT [facility] AYSHA GLABRATA Not Detected 23.000 - 32.138 ppm 04/04/2025 6:19 AM EDT [facility] AYSHA KRUSEI 16.514(A) 23.000 - 32.271 ppm 04/04/2025 6:19 AM EDT [facility] AYSHA KRUSEI Detected(A) 23.000 - 32.271 ppm 04/04/2025 6:19 AM EDT [facility] CHLAMYDIA TRACHOMATIS 0.000 23.000 - 31.467 ppm 04/04/2025 6:19 AM EDT [facility] CHLAMYDIA TRACHOMATIS Not Detected 23.000 - 31.467 ppm 04/04/2025 6:19 AM EDT [facility] GARDNERELLA VAGINALIS 26.666(A) 19.961 - 24.689 ppm 04/04/2025 6:19 AM EDT [facility] GARDNERELLA VAGINALIS Detected(A) 19.961 - 24.689 ppm 04/04/2025 6:19 AM EDT [facility] MEGASPHAERA (TYPES 1, 2) 21.837(A) 19.961 - 24.689 ppm 04/04/2025 6:19 AM EDT [facility] MEGASPHAERA (TYPES 1, 2) Detected(A) 19.961 - 24.689 ppm 04/04/2025 6:19 AM EDT [facility] NEISSERIA GONORRHOEAE 0.000 23.000 - 32.117 ppm 04/04/2025 6:19 AM EDT [facility] NEISSERIA GONORRHOEAE Not Detected 23.000 - 32.117 ppm 04/04/2025 6:19 AM EDT [facility] TRICHOMONAS VAGINALIS 0.000 23.000 - 32.119 ppm 04/04/2025 6:19 AM EDT [facility] TRICHOMONAS VAGINALIS Not Detected 23.000 - 32.119 ppm 04/04/2025 6:19 AM EDT [facility] MYCOPLASMA GENITALIUM 0.000 19.961 - 24.689 ppm 04/04/2025 6:19 AM EDT [facility] MYCOPLASMA GENITALIUM Not Detected 19.961 - 24.689 ppm 04/04/2025 6:19 AM EDT [facility] ERMB, C; MEFA 22.692(A) 23.000 - 27.611 ppm 04/04/2025 6:19 AM EDT [facility] ERMB, C; MEFA Detected(A) 23.000 - 27.611 ppm 04/04/2025 6:19 AM EDT [facility] TET B, TET M 20.933(A) 23.000 - 27.778 ppm 04/04/2025 6:19 AM EDT [facility] TET B, TET M Detected(A) 23.000 - 27.778 ppm 04/04/2025 6:19 AM EDT [facility] Tissue 04/03/2025 12:5 8 PM EDT 04/04/2025 1:30 AM EDT us Josi HERNANDEZ LAB BLOOD ORDERABLES Final Resul t [facility] [address] [place] [address] documented in this encounter Visit Diagnoses Not on filedocumented in this encounter Care Teams Engineer Rf Deployment Relationship Specialty Start Date End Date Radha Calix PA PCP - [facility] Diana REVENUE CYCLE ANALYST 05/14/24 documented as of this encounter
--- OUTSIDE RECORDS SUMMARY | 2025-04-10 14:03 | XMS_ITS | Encounter Summary ---
Author Organization [employer] Address [id number] [place] [address] Care Team Providers Care Head Setter Name Role Phone Fabiana Sandra APRN-SAMPLE BOX MAKER Primary Care Provid er Encounter Details Date Type Department Care Team (Late st Contact Info) Description 03/30/2024 Orders Only [facility] - Family Medicine [address] [place] [address] External, Scanning Provider Social History Tobacco Use Types Packs/Day Years Used Date Smoking Tobacco: Never Smokeless Tobacco: Never Alcohol Use Standard Drinks/Week Comments No 0 (1 standard drink = 0.6 oz pur e alcohol) Social Connection and Isolat ion Panel [NHANES] Answer Date Recorded In a typical week, how many times do you talk on the phone with family, friends, or neighbors? More than three times a week 10/15/2021 How often do you get togethe r with friends or relatives? Twice a week 10/15/2021 How often do you attend chur ch or jew services? Never 10/15/2021 Do you belong to any clubs o r organizations such as mu-ism groups, unions, fraternal or athletic groups, or school groups? No 10/15/2021 How often do you attend meet ings of the clubs or organizations you belong to? Never 10/15/2021 Are you , , di vorced, , never , or living with a partner? Never 10/15/2021 AUDIT-C Answer Date Recorded Q1: How often do you have a drink containing alc ohol? Monthly or less 10/15/2021 Q2: How many drinks containi ng alcohol do you have on a typical day when you are drinking? 1 or 2 10/15/2021 Q3: How often do you have si x or more drinks on one occasion? Less than monthly 10/15/2021 Overall Financial Resource Strain (CARDIA) Answe r Date Recorded How hard is it for you to pa y for the very basics like food, housing, medical care, and heating? Somewhat hard 02/09/2023 PHQ-2 Answer Date Recorded Total Score 0 03/12/2024 [facility] Occupat ional Health - Occupational Stress Questionnaire Answer Date Recorded Do you feel stress - tense, restless, nervous, or anxious, or unable to sleep at night because your mind is troubled all the time - these days? Rather much 10/15/2021 Exercise Vital Sign Answer Date Recorde d On average, how many days pe r week do you engage in moderate to strenuous exercise (like a brisk walk)? 2 days 10/15/2021 On average, how many minutes do you engage in exercise at this level? 30 min 10/15/2021 PRAPARE - Transportation Answer Date Re corded In the past 12 months, has l ack of transportation kept you from medical appointments or from getting medications? No 01/13 In the past 12 months, has l ack of transportation kept you from meetings, work, or from getting things needed for daily living? No 02/09/2023 Housing Instability Answer Date Recorde d Are you worried or concerned that in the next two months you may not have stable housing that you own, rent or stay in as a part of a household? No 02/09/2023 Childcare Answer Date Recorded Do problems getting child ca re make it difficult for you to work or study? No 10/15/2021 Employment Answer Date Recorded Do you need help finding a [facility] career center and/or a training program? No 10/15/2021 Hunger Screening Answer Date Recorded Within the past 12 months we worried whether our food would run out before we got money to buy more. Never True 03/12/2024 Within the past 12 months th e food we bought just didn't last and we didn't have money to get more. Never True 03/12/2024 Purpose - Life Answer Date Recorded I have a purpose and direction in my life. Agree 10/15/2021 Education Answer Date Recorded What is the highest level of school you have completed or the highest degree you have received? 12th grade 10/19/2019 Comments No Sex and Gender Information Value Date Recorded Sex Assigned at Not on file Legal Sex Female 6:14 PM EDT Gender Identity Not on file Sexual Orientation Not on file Occupation Industry Job Start Date Job End Date [employer] Not on file Not on file Not on file documented as of this encounter Plan of Treatment Not on file documented as of this encounter Procedures Procedure Name Priority Date/Time Associated Diagnosis Comments US ABDOMEN LMTD Routine 03/30/2024 12:58 PM EDT documented in this encounter Results * Ultrasound abdomen limited (03/30/2024 12:58 PM EDT) Anatomical Region Laterality Modality Body, Abdomen Ultrasound us Scanning Provider External IMG US ORDERABLES Fin al Result documented in this encounter Visit Diagnoses Not on filedocumented in this encounter Additional Health Concerns Assessment Noted Time PHQ-9 Depression Total Score: 0 03/12/20 24 11:20 AM EDT A Body Mass Index follow-up plan has been documented for the patient 03/12/2024 1:05 PM EDT documented as of this encounter Care Teams Head Setter Relationship Specialty Start Date End Date Fabiana Sandra, FIBERGLASS FINISHER-SAMPLE BOX MAKER [address], [place] [address] PCP - General Family Medicine 10/16/19 documented as of this encounter
--- OUTSIDE RECORDS SUMMARY | 2025-04-10 14:03 | XMS_ITS | Encounter Summary ---
Author Organization [employer] Address [id number] [place] [address] Care Team Providers Care Batch Maker Name Role Phone Fabiana Sandra APRN-DIRECTOR OF MARKET ANALYSIS Primary Care Provid er Encounter Details Date Type Department Care Team (Late st Contact Info) Description 03/15/2024 Telephone [facility] - Family Medicine [address] [place] [id number] Mikala Murphy CMA Social History Tobacco Use Types Packs/Day Years [...] often do you attend chur ch or caodaism services? Never 10/15/2021 Do you belong to any clubs o r organizations such as catholic groups, unions, fraternal or athletic groups, or [...] Answer Date Recorded Total Score 0 03/12/2024 [facility] - Occupational Stress Questionnaire Answer Date [...] Recorded Do you need help finding a [facility] career center and/or a training program? No [...] Industry Job Start Date Job End Date [employer] Not on file Not on file Not on file documented as of this encounter Miscellaneous Notes * Telephone Encounter - Mikala Murphy CMA - 03/15/2024 3:43 PM EDT ----- Message from JAY Zepeda sent at 03/14/2024 12:15 PM EDT ----- Please set her up with [place] or me to review results and f/u anxiety. No lethal rhythms were noted onher event monitor but she did have baseline sinus tachycardia or an elevated heart rate just above 100 at 107. documented in this encounter Plan of Treatment Not on file documented as of this encounter Visit Diagnoses Not on filedocumented in this encounter Additional Health Concerns Assessment Noted Time PHQ-9 Depression Total Score: 0 03/12/20 24 11:20 AM EDT A Body Mass Index follow-up plan has been documented for the patient 03/12/2024 1:05 PM EDT documented as of this encounter Care Teams Batch Maker Relationship Specialty Start Date End Date Fabiana Sandra APRN-CNP [address] [place] [address] PCP - General Family Medicine 10/16/19 documented as of this encounter
--- OUTSIDE RECORDS SUMMARY | 2025-04-10 14:03 | XMS_ITS | Encounter Summary ---
Author Organization [employer] Address [id number] [place] [address] Care Team Providers Care Dairy Technologist Name Role Phone Fabiana Sandra APRN-DEPARTMENT MANAGER Primary Care Provid er Encounter Details Date Type Department Care Team (Late st Contact Info) Description 07/05/2024 Orders Only [facility] - Family Medicine [address] [place] [address] Ellie Ruvalcaba CMA Epigastric pain; Right upper quadrant pain Social History Tobacco Use Types Packs/Day Years [...] often do you attend chur ch or faith services? Never 10/15/2021 Do you belong to any clubs o r organizations such as latter day groups, unions, fraternal or athletic groups, or [...] Answer Date Recorded Total Score 0 03/12/2024 [facility] of Occupat ional Health - Occupational Stress [...] Recorded Do you need help finding a [facility] career center and/or a training program? No [...] Job Start Date Job End Date [employer] Not on file Not on file Not on file documented as of this encounter Plan of Treatment Not on file documented as of this encounter Procedures Procedure Name Priority Date/Time Associated Diagnosis Comments AMB REFERRAL TO GASTROENTEROLOGY Routine 07/05/2024 4:46 PM EDT Epigastric pain Right upper quadrant pain documented in this encounter Results * Ambulatory referral to Gastroenterology ([facility]) (07/05/2024 4:46 PM EDT) us Fabiana THOMPSON OUTPATIENT REFERRAL ORDERABLES Final Result MANUALLY TRANSCRIBED RESULTS documented in this encounter Visit Diagnoses Diagnosis Epigastric pain Abdominal pain, epigastric Right upper quadrant pain Abdominal pain, right upper quadrant documented in this encounter Additional Health Concerns Assessment Noted Time PHQ-9 Depression Total Score: 0 03/12/20 24 11:20 AM EDT A Body Mass Index follow-up plan has been documented for the patient 03/12/2024 1:05 PM EDT documented as of this encounter Care Teams Dairy Technologist Relationship Specialty Start Date End Date Fabiana Sandra APRN-CNP [address] [place] [address] PCP - General Family Medicine 10/16/19 documented as of this encounter
--- OUTSIDE RECORDS SUMMARY | 2025-04-10 14:03 | XMS_ITS | Encounter Summary ---
Author Organization [facility] Address [address] [facility] [place] [address] Care Team Providers Care Automotive Electrical Fitter Name Role Phone Radha Calix Unavailable Encounter Details Date Type Department Care Team (Late Contact Info) Description 04/03/2025 Bamboo flowsheet [facility] OB [address] [place] [address] Josi Cardoza PA [address] [place] [address] Dr Wolf, [facility] Social History Tobacco Use Types Packs/Day [...] Description 05/02/2025 8:50 AM EDT Routine [facility] [address] [place] [address] Henok Lopez DO [address] [place] [address] Dr Alina [place], [facility] 12/16/2025 2:00 PM EST Office Visit [facility] [address] [place] [address] Henok Lopez, DO [address] [place] [address] documented as of this encounter Visit Diagnoses Not on filedocumented in this encounter Care Teams Automotive Electrical Fitter Relationship Specialty Start Date End Date Radha Calix PA PCP - [facility] PERSONAL FINANCIAL REPRESENTATIVE 05/14/24 documented as of this encounter
--- OUTSIDE RECORDS SUMMARY | 2025-04-10 14:03 | XMS_ITS | Clinical Summary ---
Author Organization [facility] Healthcare Address [address] [place] [address] Care Team Providers Care Jetting Machine Operator Name Role Phone Radha Calix Unavailable [phone] Allergies Active Allergy Reactions Criticality Noted Date Comments Cephalexin Anaphylaxis,Rash High 07/29/2017 Throat swelled up and itching Medications FLUoxetine (PROzac) 10 MG capsule Take 10 mg by mouth at bedtime. 11/23/19 23 Active propylene glycol liquid external solution 07/12/20 23 Active Ciclopirox 1 % shampoo wash affected area on the trunk in the shower DAILY until clear, let sit 3-5 MINUTES then rinse off 01/23/20 25 Active esomeprazole (NexIUM) [address] capsule Take 40 mg by mouth Daily 03/25/20 24 Active ondansetron ODT (Zofran-ODT) 4 MG disintegrating tablet Take 4 mg by mouth every 8 (eight) hours if needed 03/12/20 24 Active triamcinolone (Kenalog) 0.1 % cream APPLY a thin layer to trunk and extremities TWICE DAILY NEEDED 01/23/20 25 Active metroNIDAZOLE (Flagyl) 500 MG tabletIndications: BV (bacterial vaginosis) Take 1 tablet (500 mg) by mouth in the morning and 1 tablet (500 mg) before bedtime. Do all this for 7 days. Do not drink alcohol while taking this medication. 14 tablet 04/04/20 25 025 Active terconazole (Terazol 7) 0.4 % vaginal creamIndications:Y east infection Insert 1 applicator into the vagina at bedtime for 7 days 45 g 05/22 025 Active Active Problems Estimated Date of Delivery Comme nts Yes 08/25/2025 Based on last me nstrual period of 11/18/2024 No known active problems Encounters Date Type Department Care Team Description 04/04/2025 Results Follow-Up [facility] [address] [place] [address] Hemalatha Fatima LPN 04/04/2025 Telephone [facility] [address] [place] [address] Hemalatha Fatima, DISH ROOM WORKER 04/03/2025 9:30 AM EDT Routine [facility] [address] [place] [address] Josi Cardoza PA Second trimester ; 18 weeks gestation of ; Screening, , for anatomic survey; Screening examination for STI; Need for maternal serum alpha-protein (MSAFP) screening 04/03/2025 External Result Encounter [facility] External Department Unsolicited Josi Cardoza PA 04/03/2025 Bamboo flowsheet [facility] [address] [place] [address] Josi Cardoza PA 02/26/2025 9:50 AM EDT Routine [facility] [address] [place] [address] Henok Lopez, Second trimester ; 12 weeks gestation of 02/26/2025 Bamboo flowsheet [facility] [address] [place] [address] Henok Lopez, 02/07/2025 Abstract [facility] [address] [place] [address] Henok Lopez, DO 01/25/2025 9:00 AM EDT Initial [facility] [address] [place] [address] GA: [id number] 01/25/2025 8:30 AM EDT Ancillary Procedure [facility] [address] [place] [phone] Missed menses 01/25/2025 Clinisync Result Encounter [facility] External Department Unsolicited Henok Lopez DO from Last 3 Months Family History Medical History Relation Name Comments Diabetes Maternal Grandfather Cancer Maternal Grandmother Relation Name Status Comments Daughter Alive Maternal Grandfather Maternal Grandmother Son Alive Social History Tobacco Use Types Packs/Day Years Used Date Smoking Tobacco: Never Smokeless Tobacco: Never Tobacco Cessation:Counseling Given: Not Answered Alcohol Use Standard Drinks/Week Comments Never 0 (1 standard drink = 0.6 oz pur e alcohol) Estimated Date of Delivery Comme nts Yes 08/25/2025 Based on last me nstrual period of 11/18/2024 Sex and Gender Information Value Date Recorded Sex Assigned at Not on file Legal Sex Female 11:47 PM EDT Gender Identity Not on file Sexual Orientation Not on file Last Filed Vital Signs Vital Sign Reading Time Taken Comments Blood Pressure 116/72 04/03/2025 9:41 AM EDT Pulse - - Temperature - - Respiratory Rate - - Oxygen Saturation - - Inhaled Oxygen Concentration - - Weight 79.4 kg (175 lb) 04/03/2025 9:41 AM EDT Height 160 cm (5' 3 ) 11/30/2022 12:00 PM EST Body Mass Index 31 11/30/2022 12:00 PM EST Plan of Treatment Upcoming Encounters Date Type Department Care Team (Late st Contact Info) Description 05/02/2025 8:50 AM EDT Routine [facility] OB [address] [place], [place] [address] [place] [phone] Henok Lopez DO [address] [place], [place] [id number] 12/16/2025 2:00 PM EST Office Visit [facility] [address] [place] [phone] Henok Lopez DO [address] [place], [place] [id number] Health Maintenance Due Date Last Done Comments Influenza Vaccine (Season Ended) 2025 Procedures Procedure Name Priority Date/Time Associated Diagnosis Comments RECURRENT VAGINITIS (HTRX) Routine 04/03/2025 12:58 PM EDT POCT URINALYSIS DIPSTICK Routine 04/03/2025 10:01 AM EDT Second trimester POCT URINALYSIS DIPSTICK Routine 02/26/2025 9:54 AM EDT 12 weeks gestation of HBSAG SCREEN Routine 01/25/2025 1:40 PM EDT RAPID PLASMA REAGIN, QUANT Routine 01/25/2025 1:40 PM EDT HCV ANTIBODY RFX TO QUANT PCR Routine 01/25/2025 1:40 PM EDT HIV AB/P24 AG WITH REFLEX Routine 01/25/2025 1:40 PM EDT ALL RUBELLA IGG AB Routine 01/25/2025 1: 40 PM EDT MLR HEMOGLOBIN A1C Routine 01/25/2025 1: 40 PM EDT ALL TYPE AND SCREEN Routine 01/25/2025 1 :40 PM EDT ALL CBC WITH AUTO DIFF Routine 01/25/2025 1:40 PM EDT BOX TEST Routine 01/25/2025 1:40 PM EDT [facility] DRUG SCREEN RAPID (URINE) Routine 01/25/2025 1:30 PM EDT US OB TRANSVAGINAL Routine 01/25/2025 9: 07 AM EDT Missed menses POCT URINALYSIS DIPSTICK Routine 01/25/2025 8:57 AM EDT Missed menses POCT , URINE Routine 01/25/2025 8:57 AM EDT Missed menses from Last 3 Months Results * (ABNORMAL) RECURRENT VAGINITIS (HTRX) (04/03/2025 12:58 PM EDT) [facility] ATOPOBIUM VAGINAE 27.450(A) 19.961 - 24.689 ppm 04/04/2025 6:19 AM EDT [facility] ATOPOBIUM VAGINAE Detected(A) 19.961 - 24.689 ppm 04/04/2025 6:19 AM EDT [facility] BVAB 2,3 (BACTERIAL VAGINOSIS ASSOCIATED BACTERIA 2, 3); MOBILUNCUS SPP 17.543(A) 19.961 - 24.689 ppm 04/04/2025 6:19 AM EDT [facility] BVAB 2,3 (BACTERIAL VAGINOSIS ASSOCIATED BACTERIA 2, 3); MOBILUNCUS SPP Detected(A) 19.961 - 24.689 ppm 04/04/2025 6:19 AM EDT [facility] AYSHA ALBICANS, PARAPSILOSIS, TROPICALIS 0.000 19.961 - 30.770 ppm 04/04/2025 6:19 AM EDT [facility] AYSHA ALBICANS, PARAPSILOSIS, TROPICALIS Not Detected 19.961 - 30.770 ppm 04/04/2025 6:19 AM EDT [facility] AYSHA GLABRATA 0.000 23.000 - 32.138 ppm 04/04/2025 6:19 AM EDT [facility] AYSHA GLABRATA Not Detected 23.000 - 32.138 ppm 04/04/2025 6:19 AM EDT [facility] AYSHA KRUSEI 16.514(A) 23.000 - 32.271 ppm 04/04/2025 6:19 AM EDT [facility] AYSHA KRUSEI Detected(A) 23.000 - 32.271 ppm 04/04/2025 6:19 AM EDT [facility] CHLAMYDIA TRACHOMATIS 0.000 23.000 - 31.467 ppm 04/04/2025 6:19 AM EDT [facility] CHLAMYDIA TRACHOMATIS Not Detected 23.000 - 31.467 ppm 04/04/2025 6:19 AM EDT [facility] GARDNERELLA VAGINALIS 26.666(A) 19.961 - 24.689 ppm 04/04/2025 6:19 AM EDT [facility] GARDNERELLA VAGINALIS Detected(A) 19.961 - 24.689 ppm 04/04/2025 6:19 AM EDT [facility] MEGASPHAERA (TYPES 1, 2) 21.837(A) 19.961 - 24.689 ppm 04/04/2025 6:19 AM EDT [facility] MEGASPHAERA (TYPES 1, 2) Detected(A) 19.961 - 24.689 ppm 04/04/2025 6:19 AM EDT [facility] NEISSERIA GONORRHOEAE 0.000 23.000 - 32.117 ppm 04/04/2025 6:19 AM EDT [facility] NEISSERIA GONORRHOEAE Not Detected 23.000 - 32.117 ppm 04/04/2025 6:19 AM EDT [facility] TRICHOMONAS VAGINALIS 0.000 23.000 - 32.119 ppm 04/04/2025 6:19 AM EDT [facility] TRICHOMONAS VAGINALIS Not Detected 23.000 - 32.119 ppm 04/04/2025 6:19 AM EDT [facility] MYCOPLASMA GENITALIUM 0.000 19.961 - 24.689 ppm 04/04/2025 6:19 AM EDT [facility] MYCOPLASMA GENITALIUM Not Detected 19.961 - 24.689 ppm 04/04/2025 6:19 AM EDT [facility] ERMB, C; MEFA 22.692(A) 23.000 - 27.611 ppm 04/04/2025 6:19 AM EDT [facility] ERMB, C; MEFA Detected(A) 23.000 - 27.611 ppm 04/04/2025 6:19 AM EDT [facility] TET B, TET M 20.933(A) 23.000 - 27.778 ppm 04/04/2025 6:19 AM EDT [facility] TET B, TET M Detected(A) 23.000 - 27.778 ppm 04/04/2025 6:19 AM EDT [facility] Tissue 04/03/2025 12:5 8 PM EDT 04/04/2025 1:30 AM EDT Josi HERNANDEZ LAB BLOOD ORDERABLES Final Resul t [facility] [address] [facility] [place] [address] * (ABNORMAL) POCT urinalysis dipstick manually resulted (04/03/2025 10:01 AM EDT) Only the most recent of3 resultswithin the time period is included. Color, UA Yellow Clarity, UA Clear Glucose, UA Positive Negative - 2000(110) ++++ mg/dL Comment:100 Bilirubin, UA Negative Negative - 4(70) +++ mg/dL Ketones, UA Negative Negative - 160(16) ++++ mg/dL Spec Grav, UA 1.020 1 - 1.03 Blood, UA Positive Negative - 50 Abhi/mcL Comment:trace pH, UA 6.0 5 - 9 Protein, UA Trace Negative - 2000(20) ++++ mg/dL Urobilinogen, UA 0.2 0.2 - 12 mg/dL Leukocytes, UA Positive Negative - 500+++ Pura/mcL Comment:small Nitrite, UA Negative Negative - Positive Urine 04/03/2025 10:0 1 AM EDT Jois HERNANDEZ POINT OF CARE TEST ENTER/EDIT OR DERABLES Final Result * BOX TEST (01/25/2025 1:40 PM EDT) BOX TEST S[facility] OUT [facility] 01/25/2025 [facility] 01/25/2025 1:40 PM EDT 01/25/2025 1:49 PM EDT [facility] 01/25/2025 1:57 PM EDT PATERSON [facility] Henok John DO LAB BLOOD ORDERABLES Final Resul t Performing Organization Address [facility]/ZIP Co de Phone Number [facility] * HBSAG SCREEN (01/25/2025 1:40 PM EDT) Pathologist [facility] HBSAG SCREEN Negative Negative [facility] Comment: Performed at: [address] [id number] Commissary Manager: Juanito Galindo PhD, Phone: [phone] 01/25/2025 1:40 PM EDT 01/25/2025 1:49 PM EDT Narrative [facility] - 01/26/2025 11:14 AM EDT us Henok John DO LAB BLOOD ORDERABLES Final Resul t Performing Organization Address [facility] Co de Phone Number [facility] * RAPID PLASMA REAGIN, QUANT (01/25/2025 1:40 PM EDT) [facility] RAPID PLASMA REAGIN, QUANT Non Reactive NonRea<1: 1 titer [facility] Comment: Please Note: This test does not meet current guidelines for screening and diagnosis of syphilis. This test is intended for following treatment response in patients being treated for syphilis infection. To screen for syphilis infection, a reflex cascade that includes both RPR and a treponema-specific assay should be utilized, such as Treponema pallidum (Syphilis) Screening [place] (129256) or Rapid Plasma Reagin (RPR) Test With Reflex to Quantitative RPR and Confirmatory Treponema pallidum Antibodies (189906). Performed at: [address] [id number] Commissary Manager: Juanito Galindo PhD, Phone: [phone] 01/25/2025 1:40 PM EDT 01/25/2025 1:49 PM EDT Narrative [facility] - 01/26/2025 11:14 AM EDT Henok John DO LAB BLOOD ORDERABLES Final Resul t Performing Organization Address [facility] Co de Phone Number [facility] * HIV AB/P24 AG WITH REFLEX (01/25/2025 1:40 PM EDT) [facility] HIV AB/P24 AG SCREEN Non Reactive Non Reactive [facility] Comment: HIV-1/HIV-2 antibodies and HIV-1 p24 antigen were NOT detected. There is no laboratory evidence of HIV infection. HIV Negative Performed at: [address] [id number] Commissary Manager: Juanito Galindo PhD, Phone: [phone] 01/25/2025 1:40 PM EDT 01/25/2025 1:49 PM EDT Narrative [facility] - 01/26/2025 7:07 AM EDT Learn[employer]fe[employer] DO LAB BLOOD ORDERABLES Final Resul t Performing Organization Address [facility] Phone Number [facility] * HCV ANTIBODY RFX TO QUANT PCR (01/25/2025 1:40 PM EDT) [facility] HCV AB Non Reactive Non Reactive [facility] INTERPRETATION: Comment . [facility] Comment: Not infected with HCV unless early or acute infection is suspected (which may be delayed in an immunocompromised individual), or other evidence exists to indicate HCV infection. 01/25/2025 1:40 PM EDT 01/25/2025 1:49 PM EDT [facility] - 01/26/2025 7:07 AM EDT [employer] DO LAB BLOOD ORDERABLES Final Resul t Performing Organization Address [facility] Co de Phone Number [facility] * MLR HEMOGLOBIN A1C (01/25/2025 1:40 PM EDT) [facility] GLYCOHEMOGLOBIN A1C 5.0 4.5 - 6.2 % [facility] Comment: ADA RECOMMENDED LIMIT 4.0 - 6.0 ADA THERAPEUTIC TARGET < 7.0 ACTION SUGGESTED > 7.0 ESTIMATED AVERAGE GLUCOSE 97 mg/dL TB 01/25/2025 1:40 PM EDT 01/25/2025 1:49 PM EDT Narrative [facility] - 01/25/2025 3:27 PM EDT us Henok John DO [facility] Final Result [facility] * ALL TYPE AND SCREEN (01/25/2025 1:40 PM EDT) [facility] BLOOD TYPE O Positive TB ANTIBODY SCREEN NEGATIVE TB 01/25/2025 1:40 PM EDT 01/25/2025 1:49 PM EDT Narrative [facility] - 01/25/2025 3:10 PM EDT [facility] , us Henok John DO CLIN[facility] Final Result Performing Organization Address [facility] Co de Phone Number [facility] * ALL RUBELLA IGG AB (01/25/2025 1:40 PM EDT) [facility] RUBELLA ANTIBODIES, IGG 3.35 Immune >0.99 index TB Comment: Non-immune <0.90 Equivocal 0.90 - 0.99 Immune >0.99 Performed at: [facility] [id number] Commissary Manager: Juanito Galindo PhD, Phone: [phone] 01/25/2025 1:40 PM EDT 01/25/2025 1:49 PM EDT Narrative [facility] - 01/26/2025 7:07 AM EDT Henok John DO [facility] Final Result Performing Organization Address City/[facility]/ZIP Co de Phone Number [facility] * (ABNORMAL) ALL CBC WITH AUTO DIFF (01/25/2025 1:40 PM EDT) [facility] TB WBC 10.4 4.0 - 11.0 10 3/uL [facility]H TBH RBC 4.10(L) 4.20 - 5.40 10 6/uL [facility] TBH HGB 12.4 12.0 - 16.0 g/dL TBH TBH HCT 35.4(L) 36.0 - 48.0 % [facility]H MCV 86.3 81.0 - 99.0 fL TBH TBH MCH 30.2 26.7 - 34.0 pg TBH TBH MCHC 35.0 29.9 - 35.2 g/dL TBH TBH RDW 12.8 11.0 - 15.0 % [facility]H TBH PLT 197 150 - 450 10 3/uL [facility] TBH MPV 8.8(L) 9.5 - 13.5 fL [facility]H NEUTROPHILS PERCENT AUTO 76.3(H) 43.0 - 75.0 % [facility] LYMPHOCYTES PERCENT AUTO 16.9(L) 20.5 - 60.0 % TBH MONOCYTES PERCENT AUTO 5.8 1.7 - 12.0 % TBH TBH EO % 0.5(L) 0.9 - 7.0 % TBH BASOPHILS PERCENT AUTO 0.2 0.2 - 2.0 % TBH IMMATURE GRANULOCYTES PCT AUTO 0.3 0.0 - 0.5 % [facility]H NEUTROPHILS ABSOLUTE AUTO 8.0(H) 1.4 - 6.5 10 3/uL TBH LYMPHOCYTES ABSOLUTE AUTO 1.8 1.2 - 3.8 10 3/uL TBH MONOCYTES ABSOLUTE AUTO 0.6 0.3 - 0.8 10 3/uL TBH TBH EO # 0.1 0.0 - 0.7 10 3/uL TBH BASOPHILS ABSOLUTE AUTO 0.0 0.0 - 0.1 10 3/uL [facility] IMMATURE GRANULOCYTES ABS AUTO 0.03 0.00 - 0.03 10 3/uL [facility] 01/25/2025 1:40 PM EDT 01/25/2025 1:49 PM EDT Narrative [facility] - 01/25/2025 2:08 PM EDT us Henok John DO CLIN[facility] Final Result Performing Organization Address [facility] de Phone Number [facility] * TBH DRUG SCREEN RAPID (URINE) (01/25/2025 1:30 PM EDT) CANNABINOID SCREEN URINE NEGATIVE NEGATIVE TBH PHENCYCLIDINE SCREEN URINE NEGATIVE NEGATIVE TBH COCAINE SCREEN URINE NEGATIVE NEGATIVE TBH METHAMPHETAMINES SCREEN URINE NEGATIVE NEGATIVE TBH OPIATE SCREEN URINE NEGATIVE NEGATIVE TBH AMPHETAMINE SCREEN URINE NEGATIVE NEGATIVE TBH BENZODIAZEPINES SCREEN URINE NEGATIVE NEGATIVE TBH TRICYCLIC ANTIDEPRESSANT URINE NEGATIVE NEGATIVE TBH METHADONE SCREEN URINE NEGATIVE NEGATIVE TBH BARBITURATES SCREEN URINE NEGATIVE NEGATIVE TBH OXYCODONE SCREEN URINE NEGATIVE NEGATIVE TBH BUPRENORPHINE SCREEN URINE NEGATIVE NEGATIVE TBH Comment: DRUG CLASS TEST SYSTEM CUT-OFF CONCENTRATIONS ARE FOLLOWS: AMP (Amphetamine): 500 ng/mL BAR (Barbiturates): 200 ng/mL BZO (Benzodiazepines): 150 ng/mL BUP (Buprenorphine): 10 ng/mL MEGHAN (Cocaine): 150 ng/mL mAMP (Methamphetamine): 500 ng/mL MTD (Methadone): 200 ng/mL OPI (Opiates): 100 ng/mL OXY (Oxycodone): 100 ng/mL PCP (Phencyclidine): 25 ng/mL THC (Cannabinoids): 50 ng/mL TCA (Trycyclic Antidepressants): 300 ng/mL 01/25/2025 1:30 PM EDT 01/25/2025 1:49 PM EDT Narrative [facility] - 01/25/2025 2:08 PM EDT us Henok John DO CLINISYNC Final Result Performing Organization Address [facility] de Phone Number [facility] * US OB transvaginal (01/25/2025 9:07 AM EDT) Anatomical Region Laterality Modality Body Ultrasound 01/27/2025 7:46 AM EDT Narrative 01/27/2025 7:46 AM EDT EXAM: US OB TRANSVAGINAL HISTORY: Dating. COMPARISON: None available. TECHNIQUE: Two-dimensional transvaginal grayscale ultrasound imaging of the pelvis was performed. Color Doppler evaluation of the ovaries was also performed. FINDINGS: The uterus demonstrates a normal homogeneous echotexture. The cervix measures 5 cm in length and the cervical os is closed. The right ovary is not visualized due to overlying bowel gas. The left ovary measures 2.8 x 1.9 x 2.6 cm and demonstrates a normal echotexture. There is normal color Doppler flow. There is a presumed corpus luteal cyst visualized. No fluid is present within the cul-de-sac. There is a single, live intrauterine gestation identified with a heart rate of 170 beats per minute and a crown-rump length measurement of 3.1 cm, correlating to a gestational age of 10 weeks 0 days (+/- 6 days). There is no subchorionic hemorrhage visualized. A yolk sac is visualized. IMPRESSION: 1. Single, live intrauterine gestation 9 weeks, 5 days by LMP. Today's ultrasound measurements correlate with a gestational age of 10 weeks 0 days (+/- 6 days). LISA by today's ultrasound is 08/23/2025. 2. Normal color Doppler evaluation of the left ovary, the right ovary is not visualized. Electronically Signed:Electronically signed by CATARINA OTOOLE II, MD, PHD at 27-Jan-2025 07:45:14 AM [facility] Procedure Note Catarina Otoole MD - 01/27/2025 EXAM: US OB TRANSVAGINAL HISTORY: Dating. COMPARISON: None available. TECHNIQUE: Two-dimensional transvaginal grayscale ultrasound imaging ofthe pelvis was performed. Color Doppler evaluation of the ovaries was alsoperformed. FINDINGS: The uterus demonstrates a normal homogeneous echotexture. The cervixmeasures 5 cm in length and the cervical os is closed. The right ovary is not visualized due to overlying bowel gas. The left ovary measures 2.8 x 1.9 x 2.6 cm and demonstrates a normalechotexture. There is normal color Doppler flow. There is a presumedcorpus luteal cyst visualized. No fluid is present within the cul-de-sac. There is a single, live intrauterine gestation identified with a fetalheart rate of 170 beats per minute and a crown-rump length measurement of3.1 cm, correlating to a gestational age of 10 weeks 0 days (+/- 6 days).There is no subchorionic hemorrhage visualized. A yolk sac isvisualized. IMPRESSION: 1. Single, live intrauterine gestation 9 weeks, 5 days by LMP. Today'sultrasound measurements correlate with a gestational age of 10 weeks 0days (+/- 6 days). LISA by today's ultrasound is 08/23/2025. 2. Normal color Doppler evaluation of the left ovary, the right ovary isnot visualized. Electronically Signed:Electronically signed by CATARINA OTOOLE II, MD, PHDat 27-Jan-2025 07:45:14 AM [facility] us Henok John DO IMG OB US PROCEDURES Final Resul t * (ABNORMAL) POCT , urine manually resulted (01/25/2025 8:57 AM EDT) Preg Test, Ur Positive Negative Urine 01/25/2025 8:57 AM EDT us Henok John DO POINT OF CARE TEST ENTER/EDIT OR DERABLES Final Result from Last 3 Months Insurance [employer] [facility] [employer] [place] Care Teams Jetting Machine Operator Relationship Specialty Start Date End Date Radha Calix PA PCP - [facility] Diana PHOTOENGRAVING MACHINE OPERATOR/TENDER 05/14/24
--- OUTSIDE RECORDS SUMMARY | 2025-04-10 14:03 | XMS_ITS | Encounter Summary ---
Author Organization [facility] Address [address] [facility] [address] Care Team Providers Care Cash Management Clerk Name Role Phone CalixRadha Unavailable Encounter Details Date Type Department Care Team (Late Contact Info) Description 02/07/2025 Abstract [facility] OB [address] [place] [address] Henok Lopez DO [facility] [address] [place], [facility]11 Social History Tobacco Use Types Packs/Day [...] Description 05/02/2025 8:50 AM EDT Routine [facility] OB [address] [place] [address] Henok Lopez DO [facility] [address] [place], [place] [id number] 12/16/2025 2:00 PM EST Office Visit [facility] [place] [address] Henok Lopez DO [address] [place] [address] documented as of this encounter Visit Diagnoses Not on filedocumented in this encounter Care Teams Cash Management Clerk Relationship Specialty Start Date End Date Radha Calix PA PCP - [facility] Diana ETHANOL MAINTENANCE MECHANIC 05/14/24 documented as of this encounter
--- OUTSIDE RECORDS SUMMARY | 2025-04-10 14:03 | XMS_ITS | Clinical Summary ---
Author Organization [employer] Sys [employer] Address [id number] [address] [place] [address] Care Team Providers Care Registered Nurse Obstetrics Name Role Phone Fabiana Sandra APRN-HAND LOOM WEAVER Primary Care Provid er Allergies Active Allergy Reactions Criticality Noted Date Comments Cephalexin Anaphylaxis High 07/29/2017 Throat swelled up and itching Medications ondansetron ODT (ZOFRAN ODT) 4 mg disintegrating tabletIndications:N ausea Dissolve 1 tablet (4 mg total) on tongue every 8 (eight) hours as needed for nausea or vomiting. 12 tablet 4 Active FLUoxetine (PROzac) 10 mg capsuleIndications: Anxiety and depression Take 1 capsule (10 mg total) by mouth in the morning. 90 capsule 1 4 Active Active Problems Problem Noted Date Diagnosed Date Epigastric pain 10/22/2019 Resolved Problems Problem Noted Date Diagnosed Date Resolved Date HGSIL on cytologic smear of cervix 09/14/2017 10/22/2019 Overview (09/14/2017): Repeat colpo at 34 weeks Immunizations Immunization Administration Dates Next Due DTaP 07/30/2002,06/14/1997,1996 ,1996,1996 Hepatitis B 1996,1996,1996 HiB 06/14/1997,1996,1996 ,1996 IPV 07/30/2002,1996,1996 ,1996 MMR 07/30/2002,06/14/1997 Family History Medical History Relation Name Comments Diabetes Maternal Grandfather Ovarian cancer Maternal Grandmother Breast cancer Paternal Grandmother Relation Name Status Comments Father Alive Maternal Grandfather Maternal Grandmother Mother Alive Paternal Grandmother Social History Tobacco Use Types Packs/Day Years Used Date Smoking Tobacco: Never Smokeless Tobacco: Never Tobacco Cessation:Counseling Given: Not Answered Alcohol Use Standard Drinks/Week Comments No 0 [...] often do you attend chur ch or jain services? Never 10/15/2021 Do you belong to any clubs o r organizations such as baptism groups, unions, fraternal or athletic groups, or [...] Answer Date Recorded Total Score 0 03/12/2024 [facility] of Occupat ional Health - Occupational Stress [...] Recorded Do you need help finding a [facility] Thirsty center and/or a training program? No 10/15/2021 [...] Industry Job Start Date Job End Date [employer] Not on file Not on file Not on file Last Filed Vital Signs Vital Sign Reading Time Taken Comments Blood Pressure 110/68 03/12/2024 11:21 AM EDT Pulse 79 03/12/2024 11:21 AM EDT Temperature 36.7 C (98.1 F) 03/12/2024 11:21 AM EDT Respiratory Rate 20 03/12/2024 11:21 AM EDT Oxygen Saturation 100% 03/12/2024 11:21 AM EDT Inhaled Oxygen Concentration - - Weight 70.8 kg (156 lb 1.6 oz) 03/12/2024 11:21 AM EDT Height 157.5 cm (5' 2 ) 03/12/2024 11:21 AM EDT Body Mass Index 28.55 03/12/2024 11:21 AM EDT Plan of Treatment Health Maintenance Due Date Last Done Comments DTaP,Tdap and Td Vaccines (6 - Tdap) 02/02/2007 07/30/2002, 06/14/1997, 1996, Additional history exists Pap Smear 08/09/2021 08/09/2018, 07/28/2017 Adult BMI Screening 03/12/2025 03/12/2024 Depression Screening 03/12/2025 03/12/2024 Tobacco Screening 03/12/2025 03/12/2024 Influenza Vaccine Discontinued Medical Devices Not on file Procedures Procedure Name Priority Date/Time Associated Diagnosis Comments PAP SMEAR Routine 08/09/2018 3:01 PM EDT from Last 3 Months or Most Recently Relevant to Health Maintenance Results * Pap Smear (08/09/2018 3:01 PM EDT) Cervical TP 08/09/2018 3:01 PM EDT 08/09/2018 3:06 PM EDT Narrative COPATH - 08/21/2018 12:43 PM EDT [facility] [address] [place] [address] Gynecologic Cytology Consultation Patient Name: TARA ISLAS : 1995 (Age: 23) Gender: F Taken: 08/09/2018 Reported: 08/21/2018 Physician(s): Sarabjit Odom M.D. Copy To: Med. Rec. #: [id number] Acct: # [id number] Final Cytologic Interpretation Cervical (with or without endocervical) ThinPrep: Satisfactory for evaluation. A transformation zone component is present. NEGATIVE FOR INTRAEPITHELIAL LESION OR MALIGNANCY. lvt/08/21/2018 Interpretation performed at [facility], [address] [place] [address], License number: [id number]. Electronically Signed Out By HARJEET Cruz(ASCP) Date of Last Menstrual Period: 06/14/18 Other Clinical Conditions: z12.4 Screenings for malignant neoplasm of cervix z87.898 Hx of abnormal cervical pap smear Previous abnormal pap Hormone replacement therapy Previous treatment: Colposcopy and LEEP Previous cytology: HSIL, YVETTE II - III Source of Specimen Cervical (with or without endocervical) ThinPrep Thin Prep Pap (DIAGNOSTIC RADIOLOGIC TECHNOLOGIST) Fee Code(s): G0145 The Pap test is a screening test with an inherent, but low, probability of error. The Pap test is primarily effective for the diagnosis and prevention of squamous cell carcinoma. Regular screening is critical for prevention. ThinPrep liquid-based slides, which meet the Glycerin Operator criteria for automated screening, have been screened by the ThinPrep Imaging System (as of 07/31/07) along with an additional manual rescreening by a supervisor properties and, if indicated, by a pathologist.Sarabjit Odom M.D. 08/14/2018 Sarabjit Odom MD PATHOLOGY/CYTOLOGY ORDERABLES Final Result COPATH from Last 3 Months or Most Recently Relevant to Health Maintenance Insurance [employer] Care Teams Registered Nurse Obstetrics Relationship Specialty Start Date End Date Fabiana Sandra, SCHEDULING AGENT-HAND LOOM WEAVER [address] [place] [address] PCP - General Family Medicine 10/16/19
--- OUTSIDE RECORDS SUMMARY | 2025-04-10 14:03 | XMS_ITS | Encounter Summary ---
Author Organization [facility] Address [address] [facility] [place] [address] Care Team Providers Care Scarifier Operator Name Role Phone Radha Calix Unavailable [phone] Encounter Details Date Type Department Care Team ([facility] Contact Info) Description 12/24/2024 Orders Only [facility] [address] [place] [address] Ophelia Barros LPN [address] [place] [facility] [address] [place] [address] Social History Tobacco Use Types Packs/Day Years Used Date Smoking Tobacco: Never Smokeless Tobacco: Never Alcohol Use Standard Drinks/Week Comments Never 0 (1 standard drink = 0.6 oz pur e alcohol) Comments No Sex and Gender Information Value Date Recorded Sex Assigned at Not on file Legal Sex Female 11:47 PM EDT Gender Identity Not on file Sexual Orientation Not on file documented as of this encounter Plan of Treatment Upcoming Encounters Date Type Department Care Team (Late Contact Info) Description 05/02/2025 8:50 AM EDT Routine [facility] [address] [place] [address] Henok Lopez DO [address] [place] [address] 12/16/2025 2:00 PM EST Office Visit [facility] [address] [place] [address] Henok Lopez, DO [address] [facility] [place] [address] documented as of this encounter Procedures Procedure Name Priority Date/Time Associated Diagnosis Comments PAP SMEAR Routine 12/11/2024 12:00 AM EST documented in this encounter Results * Pap Smear (12/11/2024 12:00 AM EST) Swab Cervical swab / Unknown us [facility] Ob John Nurse LAB CYTOLOGY ORDERABLES Final Result EXTERNAL LAB documented in this encounter Visit Diagnoses Not on filedocumented in this encounter Care Teams Scarifier Operator Relationship Specialty Start Date End Date Radha Calix PA PCP - [facility] Diana BURDEN 05/14/24 documented as of this encounter
--- OUTSIDE RECORDS SUMMARY | 2025-04-10 14:03 | XMS_ITS | Encounter Summary ---
Author Organization [employer] Sys [employer] Address [id number] [address] [place] [address] Care Team Providers Care Infrastructure Architect Name Role Phone Fabiana Sandra Primary Care Provid er Encounter Details Date Type Department Care Team (Late st Contact Info) Description 09/14/2017 Telephone [facility] [address] [place] [address] Sarabjit Odom MD [facility] [place], [place] [id number] Social History Tobacco Use Types Packs/Day Years [...] on filedocumented in this encounter Care Teams Infrastructure Architect Relationship Specialty Start Date End Date Fabiana Sandra APRN-CNP [address] [place] [address] PCP - General Family Medicine 10/16/19 documented as of this encounter
--- OUTSIDE RECORDS SUMMARY | 2025-04-10 14:03 | XMS_ITS | Encounter Summary ---
Author Organization [facility] Address [address] [facility] [place] [address] Care Team Providers Care Vendor Quality Supervisor Name Role Phone CalixRadha Unavailable Encounter Details Date Type Department Care Team (Late st Contact Info) Description 04/04/2025 Telephone [facility] [address] [facility] [facility] [facility] [place] [address] Hemalatha Fatima LPN [address] [employer] [place] [id number] Social History Tobacco Use Types Packs/Day Years [...] encounter Miscellaneous Notes * Telephone Encounter - Hemalatha Fatima LPN - 04/04/2025 11:57 AM EDT Called and went over cx results with pt. Medications called in. documented in this encounter Plan of Treatment Upcoming Encounters Date Type Department Care Team (Late st Contact Info) Description 05/02/2025 8:50 AM EDT Routine [facility] OB [address] [place] [address] Henok Lopez, DO [address] [facility] [place] [address] 12/16/2025 2:00 PM EST Office Visit [facility] OB [address] [place] [address] Henok Lopez, DO [address] [facility] [place] [address] documented as of this encounter Visit Diagnoses Diagnosis BV (bacterial vaginosis) Unspecified vaginitis and vulvovaginitis Yeast infection documented in this encounter Care Teams Vendor Quality Supervisor Relationship Specialty Start Date End Date Radha Calix PA PCP - [facility] Diana PROFESSOR OF LITERATURE 05/14/24 documented as of this encounter
--- OUTSIDE RECORDS SUMMARY | 2025-04-10 14:03 | XMS_ITS | Encounter Summary ---
Author Organization [employer] Address [id number] [address] [place] [address] Care Team Providers Care Linux Network Administrator Name Role Phone Fabiana Sandra APRN-YVES Primary Care Provid er Reason for Visit * Reason Comments Med Refill Encounter Details Date Type Department Care Team (Late st Contact Info) Description 08/09/2023 Refill [facility] Internal Medicine - Family Medicine [address] [place] [address] Fabiana Sandra APRN-RADIO PRESENTER [address] [facility] [place] [address] Anxiety and depression Social History Tobacco Use Types Packs/Day Years [...] often do you attend chur ch or spiritism services? Never 10/15/2021 Do you belong to any clubs o r organizations such as yarsani groups, unions, fraternal or athletic groups, or [...] PHQ-2 Answer Date Recorded Total Score 0 04/27/2022 [facility] of Occupat ional Health - Occupational [...] Recorded Do you need help finding a [facility] career center and/or a training program? No 10/15/2021 Hunger Screening Answer Date Recorded Within the past 12 months we worried whether our food would run out before we got money to buy more. Never True 02/09/2023 Within the past 12 months th e food we bought just didn't last and we didn't have money to get more. Never True 02/09/2023 Purpose - Life Answer Date Recorded I [...] as of this encounter Visit Diagnoses Diagnosis Anxiety and depression documented in this encounter Additional Health Concerns Assessment Noted Time PHQ-9 Depression Total Score: 0 04/27/20 22 10:54 AM EDT A Body Mass Index follow-up plan has been documented for the patient 08/23/2022 12:46 PM EDT documented as of this encounter Care Teams Linux Network Administrator Relationship Specialty Start Date End Date Fabiana Sandra, FLIGHT/TRANSPORT NURSE-RADIO PRESENTER [address] [place] [address] PCP - General Family Medicine 10/16/19 documented as of this encounter
--- OUTSIDE RECORDS SUMMARY | 2025-04-10 14:03 | XMS_ITS | Encounter Summary ---
Author Organization [facility] Address [address] [facility] [place] [address] Care Team Providers Care Programmable Logic Controller Assembler Name Role Phone CalixRadha Unavailable [phone] Encounter Details Date Type Department Care Team (Late st Contact Info) Description 04/04/2025 Results Follow-Up [facility] OB [address] [place] [address] Hemalatha Fatima LPN [address] [facility] [place] [id number] Social History Tobacco Use Types Packs/Day Years [...] as of this encounter Miscellaneous Notes * Result Encounter Note - Hemalatha Fatima LPN - 04/04/2025 12:02 PM EDT Pt notified and medication sent in documented in this encounter Plan of Treatment Upcoming Encounters Date Type Department Care Team (Late st Contact Info) Description 05/02/2025 8:50 AM EDT Routine [facility] OB [address] [place] [address] Henok Lopez, DO [address] [facility] [place] [address] 12/16/2025 2:00 PM EST Office Visit [facility] [address] [facility] [place] [address] Henok Lopez, DO [address] [facility] [place] [address] documented as of this encounter Visit Diagnoses Not on filedocumented in this encounter Care Teams Programmable Logic Controller Assembler Relationship Specialty Start Date End Date Radha Calix PA PCP - [facility] Diana DOOR MACHINE OPERATOR 05/14/24 documented as of this encounter
--- OUTSIDE RECORDS SUMMARY | 2025-04-10 14:03 | XMS_ITS | Encounter Summary ---
Author Organization [employer] Sys [employer] Address [id number] [address] [place] [address] Care Team Providers Care Internet Sourcer Name Role Phone Fabiana Sandra Primary Care Provid er Encounter Details Date Type Department Care Team (Late st Contact Info) Description 05/08/2018 Refill [facility] [address] [place] [address] Clari Slaughter MA Social History Tobacco Use Types Packs/Day Years [...] encounter Miscellaneous Notes * Telephone Encounter - Clari Slaughter MA - 05/08/2018 1:16 PM EDT Patient would [facility]. Clari Slaughter MA 05/08/18 1317 * Telephone Encounter - PRIMITIVO Bowman - 05/08/2018 1:16 PM EDT It appears as though the prescription was sent, has she called [facility] to confirm? * Telephone Encounter - Tiffany Ziegler MA - 05/08/2018 1:16 PM EDT Pt called stating that the medication was not sent to the pharmacy due to her not having an [facility]. Pt states she opened an account and the medication can be sent to the pharmacy. Autumn can you please re-approve this? Tiffany Ziegler MA 05/19/18 1047 documented in this encounter Plan of Treatment Not on file documented as of this encounter Visit Diagnoses Not on filedocumented in this encounter Care Teams Internet Sourcer Relationship Specialty Start Date End Date Fabiana Sandra APRN-FISHERIES MANAGER [address], [place] [address] PCP - General Family Medicine 10/16/19 documented as of this encounter
== END 2025-04-10 14:02 | disposition home or self-care (01) ==
LOC: US 14:01
PROVIDERS: PCP Nurse Practitioner; Visit Provider Obstetrics & Gynecology
DX: Z36.89 Encounter for other specified antenatal screening (principal); Z3A.21 21 weeks gestation of pregnancy
CPT/HCPCS: 76805; 76817

== ENCOUNTER 2025-05-29 10:19 | Outpatient (OUT) | payer MEDICAID, SELFPAY ==
--- OUTSIDE RECORDS SUMMARY | 2025-05-29 10:21 | XMS_ITS | Encounter Summary ---
Author Organization [employer] Sys [employer] Address [id number] [address] [place] [address] Care Team Providers Care Graphic Design Professor Name Role Phone Fabiana Sandra Primary Care Provid er Encounter Details Date Type Department Care Team (Late st Contact Info) Description 05/08/2018 Refill [facility] [address] [place] [address] Clari Slaughter MA Social History [...] on filedocumented in this encounter Care Teams Graphic Design Professor Relationship Specialty Start Date End Date Fabiana Sandra APRN-MOVIE OPERATOR PCP - General Family Medicine 10/16/19 documented as of this encounter
--- OUTSIDE RECORDS SUMMARY | 2025-05-29 10:21 | XMS_ITS | Clinical Summary ---
Author Organization [employer] Sys [employer] Address [id number] [address] [place] [address] Care Team Providers Care Aemt Name Role Phone Fabiana Sandra APRN-IMPORT COORDINATOR Primary Care Provid er Allergies Active Allergy [...] Overview (09/14/2017): Repeat colpo at 34 weeks Encounters Date Type Department Care Team Description 04/15/2025 Orders Only [facility] - Family Medicine [address] [place] [address] Ref Prov, Not In System from Last 3 Months Immunizations Immunization Administration Dates Next Due DTaP [...] often do you attend chur ch or episcopal services? Never 10/15/2021 Do you belong to any clubs o r organizations such as hinduism groups, unions, fraternal or athletic groups, or [...] Answer Date Recorded Total Score 0 03/12/2024 [facility] [place] of Occupat ional Health - Occupational Stress [...] Recorded Do you need help finding a [facility] career center and/or a training program? [...] Name Priority Date/Time Associated Diagnosis Comments US PELVIC WITH TRANSVAGINAL Routine 04/10/2025 12:55 PM EDT PAP SMEAR Routine 08/09/2018 3:01 PM EDT from Last 3 Months or Most Recently Relevant to Health Maintenance Results * Ultrasound pelvic with transvaginal (04/10/2025 12:55 PM EDT) Anatomical Region Laterality Modality Body, Pelvis Ultrasound us Not In System Ref Prov IMG US ORDERABLES Final R esult * Pap Smear (08/09/2018 3:01 PM EDT) Cervical TP 08/09/2018 3:01 PM EDT 08/09/2018 3:06 PM EDT Narrative COPATH - 08/21/2018 12:43 PM EDT [facility] [address] [place] [address] Gynecologic Cytology Consultation Patient Name: TARA ISLAS : 1995 (Age: 23) Gender: F Taken: 08/09/2018 Reported: 08/21/2018 Physician(s): Sarabjit Odom M.D. Copy To: [facility] Rec. #: [id number] Acct: # [id number] Final Cytologic Interpretation Cervical (with or without endocervical) ThinPrep: Satisfactory for evaluation. A transformation zone component is present. NEGATIVE FOR INTRAEPITHELIAL LESION OR MALIGNANCY. lvt/08/21/2018 Interpretation performed at [facility], [address] [place] [address], License number: [id number]. Electronically Signed Out By HARJEET Cruz(ASCP) Date of Last Menstrual Period: 06/14/18 Other Clinical Conditions: z12.4 Screenings for malignant neoplasm of cervix z87.898 Hx of abnormal cervical pap smear Previous abnormal pap Hormone replacement therapy Previous treatment: Colposcopy and LEEP Previous cytology: HSIL, YVETTE II - III Source of Specimen Cervical (with or without endocervical) ThinPrep Thin Prep Pap (SPARE PERSON) Fee Code(s): G0145 The Pap test is a screening test with an inherent, but low, probability of error. The Pap test is primarily effective for the diagnosis and prevention of squamous cell carcinoma. Regular screening is critical for prevention. ThinPrep liquid-based slides, which meet the Outside Sales Professional criteria for automated screening, have been screened by the ThinPrep Imaging System (as of 07/31/07) along with an additional manual rescreening by a life enrichment director and, if indicated, by a pathologist.Sarabjit Odom M.D. 08/14/2018 us Sarabjit Odom MD PATHOLOGY/CYTOLOGY ORDERABLES Final Result COPATH from Last 3 Months or Most Recently Relevant to Health Maintenance Insurance MEDICAID Care Teams Aemt Relationship Specialty Start Date End Date Fabiana Sandra, MANAGEMENT TRAINER-IMPORT COORDINATOR PCP - General Family Medicine 10/16/19
--- OUTSIDE RECORDS SUMMARY | 2025-05-29 10:21 | XMS_ITS | Encounter Summary ---
Author Organization [employer] Sys [employer] Address [id number] [address] [place] [address] Care Team Providers Care Manager Access Name Role Phone Fabiana Sandra APRN-MANAGER TRUCK Primary Care Provid er Encounter Details Date Type Department Care Team (Late st Contact Info) Description 03/15/2024 Telephone [facility] - Family Medicine [address] [facility] [place] [phone] Mikala Murphy CMA Social History Tobacco Use [...] often do you attend chur ch or mormon services? Never 10/15/2021 Do you belong to any clubs o r organizations such as jewish groups, unions, fraternal or athletic groups, or [...] Answer Date Recorded Total Score 0 03/12/2024 [facility] Health - Occupational Stress Questionnaire Answer Date [...] Recorded Do you need help finding a [facility] career center and/or a training program? [...] documented as of this encounter Care Teams Manager Access Relationship Specialty Start Date End Date Fabiana Sandra APRN-CNP PCP - General Family Medicine 10/16/19 documented as of this encounter
--- OUTSIDE RECORDS SUMMARY | 2025-05-29 10:21 | XMS_ITS | Encounter Summary ---
Author Organization [employer] Address [id number] [address] [place] [address] Care Team Providers Care Movie Theater Manager Name Role Phone Fabiana Sandra APRN-[employer] AX DEVELOPER Primary Care Provid er Encounter Details Date Type Department Care Team (Late st Contact Info) Description 07/05/2024 Orders Only [facility] - Family Medicine [address] [facility] [place] [address] Ellie Ruvalcaba CMA Epigastric pain; Right upper [...] often do you attend chur ch or samaritan services? Never 10/15/2021 Do you belong to any clubs o r organizations such as rastafari groups, unions, fraternal or athletic groups, or [...] Answer Date Recorded Total Score 0 03/12/2024 [facility] of Occupat ional Health - Occupational Stress [...] Recorded Do you need help finding a [facility] career center and/or a training program? [...] documented as of this encounter Care Teams Movie Theater Manager Relationship Specialty Start Date End Date Fabiana Sandra APRN-CNP PCP - General Family Medicine 10/16/19 documented as of this encounter
--- OUTSIDE RECORDS SUMMARY | 2025-05-29 10:21 | XMS_ITS | Encounter Summary ---
Author Organization [employer] [facility] [employer] Address [id number] [place] [address] Care Team Providers Care Teleprinter Name Role Phone Fabiana Sandra APRN-PROFESSOR OF SOCIAL WORK Primary Care Provid er Encounter Details Date Type Department Care Team (Late st Contact Info) Description 04/15/2025 Orders Only [facility] - Family Medicine [address] [place] [place] [address] Ref Prov, [place] [address] Social History Tobacco Use Types Packs/Day Years [...] often do you attend chur ch or mormonism services? Never 10/15/2021 Do you belong to any clubs o r organizations such as jew groups, unions, fraternal or athletic groups, or [...] Date Recorded Total Score 0 03/12/2024 [facility] of Occupat ional Health - Occupational Stress [...] Recorded Do you need help finding a [facility] career center and/or a training [...] WITH TRANSVAGINAL Routine 04/10/2025 12:55 PM EDT documented in this encounter Results * Ultrasound pelvic with transvaginal (04/10/2025 12:55 PM EDT) Anatomical Region Laterality Modality Body, Pelvis Ultrasound us Not In System Ref Prov IMG US ORDERABLES Final R esult documented in this encounter Visit Diagnoses Not on filedocumented in this encounter Additional Health Concerns Assessment Noted Time PHQ-9 Depression Total Score: 0 03/12/20 24 11:20 AM EDT A Body Mass Index follow-up plan has been documented for the patient 03/12/2024 1:05 PM EDT documented as of this encounter Care Teams Teleprinter Relationship Specialty Start Date End Date Fabiana Sandra, COUNTERSINKER-PROFESSOR OF SOCIAL WORK PCP - General Family Medicine 10/16/19 documented as of this encounter
--- OUTSIDE RECORDS SUMMARY | 2025-05-29 10:21 | XMS_ITS | Encounter Summary ---
Author Organization [facility] Address [address] [facility] [place] [address] Care Team Providers Care Mushroom Growth Media Mixer Name Role Phone Radha Calix Unavailable [phone] Encounter Details Date Type Department Care Team (Late st Contact Info) Description 05/07/2025 Abstract [facility] [address] [place] [id number] Jsoi Vizcaino LPN [address] [place] [address] Social History Tobacco Use Types Packs/Day Years [...] Care Team (Late st Contact Info) Description 05/29/2025 1:20 PM EDT Routine [facility] [address] [place] [id number] Josi Cardoza PA [address] [place] [address] 12/16/2025 2:00 PM EST Office Visit [facility] [address] [place] [address] Henok Lopez, DO [address] [place] [address] [place] [address] documented as of this encounter Visit Diagnoses Not on filedocumented in this encounter Care Teams Mushroom Growth Media Mixer Relationship Specialty Start Date End Date Radha Calix PA PCP - [facility] RESIDENTIAL INSTRUCTOR 05/14/24 documented as of this encounter
--- OUTSIDE RECORDS SUMMARY | 2025-05-29 10:21 | XMS_ITS | Encounter Summary ---
Author Organization [employer] Address [id number] [place] [address] Care Team Providers Care Advanced Quality Engineer Name Role Phone Fabiana Sandra APRN-CLINICAL SERVICES MANAGER Primary Care Provid er Encounter Details Date Type Department Care Team (Late st Contact Info) Description 03/30/2024 Orders Only [facility] - Family Medicine [address] [facility] [place] [address] External, Scanning Provider Social History Tobacco Use [...] often do you attend chur ch or confucianism services? Never 10/15/2021 Do you belong to any clubs o r organizations such as advent groups, unions, fraternal or athletic groups, or [...] Answer Date Recorded Total Score 0 03/12/2024 [facility] of Occupat ional Health - Occupational Stress [...] Recorded Do you need help finding a [facility] and/or a training program? [...] documented as of this encounter Care Teams Advanced Quality Engineer Relationship Specialty Start Date End Date Fabiana Sandra APRN-CLINICAL SERVICES MANAGER PCP - General Family Medicine 10/16/19 documented as of this encounter
--- OUTSIDE RECORDS SUMMARY | 2025-05-29 10:21 | XMS_ITS | Encounter Summary ---
Author Organization [facility] Address [id number] [address] [place] [address] Care Team Providers Care Hazmat Tanker Driver Name Role Phone Fabiana Sandra Primary Care Provid er Reason for Visit * Reason Onset Date Comments Med Refill 12/15/2023 Encounter Details Date Type Department Care Team (Late st Contact Info) Description 12/15/2023 Refill [facility] - Family Medicine [address] [place] [phone] Fabiana Sandra APRN-CNP [address] PM 05/13/25 [place] [phone] Anxiety and depression Social History Tobacco Use [...] often do you attend chur ch or anabaptist services? Never 10/15/2021 Do you belong to any clubs o r organizations such as methodist groups, unions, fraternal or athletic groups, or [...] Answer Date Recorded Total Score 0 04/27/2022 [facility] of Occupat ional Health - Occupational [...] Recorded Do you need help finding a [facility] and/or a training program? No [...] documented as of this encounter Care Teams Hazmat Tanker Driver Relationship Specialty Start Date End Date Fabiana Sandra, KIM-COMMODITY MERCHANT PCP - General Family Medicine 10/16/19 documented as of this encounter
--- OUTSIDE RECORDS SUMMARY | 2025-05-29 10:22 | XMS_ITS | Encounter Summary ---
Author Organization [facility] Address [id number] [address] [place] [address] Care Team Providers Care Bridge Construction Inspector Name Role Phone Fabiana Sandra Primary Care Provid er Encounter Details Date Type Department Care Team (Late st Contact Info) Description 09/14/2017 Telephone [facility] [address] [place] [address] Sarabjit Odom MD [facility] [place], [place] [id number] Social History Tobacco Use Types Packs/Day Years [...] on filedocumented in this encounter Care Teams Bridge Construction Inspector Relationship Specialty Start Date End Date Fabiana Sandra APRN-CNP PCP - General Family Medicine 10/16/19 documented as of this encounter
--- OUTSIDE RECORDS SUMMARY | 2025-05-29 10:22 | XMS_ITS | Encounter Summary ---
Author [facility] Address [id number] [address] [place] [address] Care Team Providers Care Family Preservation Officer Name Role Phone Fabiana Sandra APRN-YEVS Primary Care Provid er Reason for Visit * Reason Comments Med Refill Encounter Details Date Type Department Care Team (Late st Contact Info) Description 08/09/2023 Refill [facility] - Family Medicine [address] [place] [phone] Fabiana Sandra APRN-FUEL YARD OPERATOR [address] PM 05/13/25 [place] [address] Anxiety and depression Social History [...] often do you attend chur ch or judaism services? Never 10/15/2021 Do you belong to any clubs o r organizations such as mormon groups, unions, fraternal or athletic groups, or [...] Answer Date Recorded Total Score 0 04/27/2022 [facility] of Occupat ional Health - [...] Recorded Do you need help finding a [facility] career [facility] and/or a training program? 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 Not on file Not on file documented as of this encounter Plan of Treatment Not on file documented as of this encounter Visit Diagnoses Diagnosis Anxiety and depression documented in this encounter Additional Health Concerns Assessment Noted Time PHQ-9 Depression Total Score: 0 04/27/20 10:54 AM EDT A Body Mass Index follow-up plan has been documented for the patient 08/23/2022 12:46 PM EDT documented as of this encounter Care Teams Family Preservation Officer Relationship Specialty Start Date End Date Fabiana Sandra, PUMP SERVICER SUPERVISOR-FUEL YARD OPERATOR PCP - General Family Medicine 10/16/19 documented as of this encounter
--- OUTSIDE RECORDS SUMMARY | 2025-05-29 10:22 | XMS_ITS | Encounter Summary ---
Author Organization [facility] Address [address] [facility] [place] [address] Care Team Providers Care Access Service Representative Name Role Phone ClaixRadha Unavailable Encounter Details Date Type Department Care Team (Late st Contact Info) Description 04/04/2025 Results Follow-Up [facility] [address] [place] [address] Hemalatha Fatima LPN [email or web address] [place] [id number] Social History Tobacco Use Types Packs/Day Years [...] PM EDT Routine [facility] [address] [place] [phone] Josi Cardoza PA [address] [place] [address] 12/16/2025 2:00 PM EST Office Visit [facility] [address] [facility] [place] [address] Henok Lopez DO [address] [place], [place] [id number] documented as of this encounter Visit Diagnoses Not on filedocumented in this encounter Care Teams Access Service Representative Relationship Specialty Start Date End Date Radha Calix PA PCP - [facility] ENERGY DIRECTOR 05/14/24 documented as of this encounter
--- OUTSIDE RECORDS SUMMARY | 2025-05-29 10:22 | XMS_ITS | Clinical Summary ---
Author Organization [facility] Healthcare Address [address] [place] [address] Care Team Providers Care Warehouse Order Selector Name Role Phone Radha Calix Unavailable Allergies Active Allergy Reactions Criticality Noted Date [...] extremities TWICE DAILY NEEDED 01/23/20 25 Active Active Problems Estimated Date of Delivery Comme nts Yes 08/25/2025 Based on last me nstrual period of 11/18/2024 No known active problems Encounters Date Type Department Care Team Description 05/09/2025 Patient Outreach [facility] [address] [place] [address] Josi Vizcaino LPN 05/07/2025 Abstract [facility] [address] [place] [address] Josi Vizcaino LPN 05/02/2025 8:50 AM EDT Routine [facility] [address] [place] [address] Chelsea Lopez, DO Diabetes mellitus screening; Second trimester ([facility]); 23 weeks gestation of ([facility]) 05/02/2025 Bamboo flowsheet [facility] [address] [place] [address] Chelsea Lopez, DO 04/10/2025 Clinisync Result Encounter [facility] External Department Unsolicited Chelsea Lopez, DO 04/10/2025 Clinisync Result Encounter [facility] External Department Unsolicited Chelsea Lopez, DO 04/04/2025 Results Follow-Up [facility] [address] [place] [address] Hemalatha Fatima LPN 04/04/2025 Telephone [facility] [address] [place] [address] Hemalatha Fatima LPN 04/03/2025 9:30 AM EDT Routine [facility] [place] [address] [place] [address] Josi Cardoza PA Second trimester ([facility]); 18 weeks gestation of ([facility]); Screening, , for anatomic survey ([facility]); Screening examination for STI; Need for maternal serum alpha-protein (MSAFP) screening ([facility]) 04/03/2025 External Result Encounter [facility] External Department Unsolicited Josi Cardoza PA 04/03/2025 Bamboo flowsheet [facility] [address] [place] [address] Josi Cardoza PA from Last 3 Months Family History Medical [...] Sign Reading Time Taken Comments Blood Pressure 102/64 05/02/2025 9:09 AM EDT Pulse - - Temperature - - Respiratory Rate - - Oxygen Saturation - - Inhaled Oxygen Concentration - - Weight 83 kg (183 lb) 05/02/2025 9:09 AM EDT Height 160 cm (5' 3 ) 11/30/2022 12:00 PM EST Body Mass Index 32.42 11/30/2022 12:00 PM EST Plan of Treatment Upcoming Encounters Date Type Department Care Team (Late st Contact Info) Description 05/29/2025 1:20 PM EDT Routine [facility] OB [address] [place] [address] [place] [address] Josi Cardoza PA [address] [place] [address] [place], [place] [id number] 12/16/2025 2:00 PM EST Office Visit [facility] OB [address] [place] [address] [place] [address] Chelsea Lopez, [address] [facility] [address] [place], [place] [address] Health Maintenance Due Date Last Done Comments Influenza Vaccine (#1) 2025 Procedures Procedure Name Priority Date/Time Associated Diagnosis Comments POCT URINALYSIS DIPSTICK Routine 05/02/2025 9:13 AM EDT Second trimester ([facility]) US OB CERVICAL LENGTH 04/10/2025 4:04 PM EDT US OB ANATOMY 04/10/2025 4:04 PM EDT RECURRENT VAGINITIS (HTRX) Routine 04/03/2025 12:58 PM EDT POCT URINALYSIS DIPSTICK Routine 04/03/2025 10:01 AM EDT Second trimester ([facility]) from Last 3 Months Results * (ABNORMAL) POCT urinalysis dipstick manually resulted (05/02/2025 9:13 AM EDT) Only the most recent of2 resultswithin the time period is included. Color, UA Yellow Clarity, UA Clear Glucose, UA Positive Negative - 2000(110) ++++ mg/dL Comment:100mg/dL Bilirubin, UA Negative Negative - 4(70) +++ mg/dL Ketones, UA Negative Negative - 160(16) ++++ mg/dL Spec Grav, UA 1.030 1 - 1.03 Blood, UA Positive Negative - 50 Abhi/mcL Comment:small pH, UA 6.0 5 - 9 Protein, UA Positive Negative - 2000(20) ++++ mg/dL Comment:30mg/dL Urobilinogen, UA 0.2 0.2 - 12 mg/dL Leukocytes, UA Negative Negative - 500+++ Pura/mcL Nitrite, UA Negative Negative - Positive Urine 05/02/2025 9:13 AM EDT us Chelsea Lopez DO POINT OF CARE TEST ENTER/EDIT OR DERABLES Final Result * US OB CERVICAL LENGTH (04/10/2025 4:04 PM EDT) Anatomical Region Laterality Modality Other 04/10/2025 4:04 PM EDT Narrative 04/10/2025 4:07 PM EDT The [address] [address] Ultrasound Report Signed Patient: TARA ISLAS MR#: [id number] : 1995 Acct:[id number] Age/Sex: 30 / F ADM Date: 04/10/25 Loc: US Attending Dr: Chelsea Lopez D.O. Ordering Physician: Chelsea Lopez D.O. Date of Service: 04/10/25 Procedure(s): US OB cervical length Accession Number(s): [id number] cc: MATT BRODERICK Corey D.O. The [place] [id number] Patient Name: TARA ISLAS MRN: [facility]:[id number] date: 1995 Sex: F Assigned Patient Location: US Current Patient Location: US Accession/Order Number: [id number] Exam Date: 04/10/2025 16:04 Report Date: 04/10/2025 16:04 At the request of: CHELSEA LOPEZ DO Procedure: US OB cervical length Obstetrical ultrasound to assess for cervical length Cervical length 3.9 cm. Os closed. US/US OB cervical length IMPRESSION: Cervical length 3.9 cm. Impression dictated by: Ashish Wynn M.D. 04/10/2025 4:04 PM Dictation Location: [place] [address] Electronically authenticated by: [id number] Y Date: 04/10/2025 16:04 Dictated By: Ashish Wynn D.O. Signed By: 04/10/25 1607 DD/ 1604 TD/TT: Local Company Hazmat Driver: Procedure Note Radiology, Radiologist, MD - 04/10/2025 [place] [address] Ultrasound Report Signed Patient: TARA ISLAS AMR#: [id number] : 1995Acct:[id number] Age/Sex: 30 / FADM Date: 04/10/25 Loc: US Attending Dr: Chelsea Lopez D.O. Ordering Physician: Chelsea Lopez D.O. Date of Service: 04/10/25 Procedure(s): US OB cervical length Accession Number(s): [id number] cc: MATT BRODERICK Corey D.O. [place] [id number] Patient Name: TARA ISLAS MRN: [id number] date: 1995 Sex: F Assigned Patient Location: US Current Patient Location: Accession/Order Number: [id number] Exam Date: 04/10/2025 16:04 Report Date: 04/10/2025 16:04 At the request of: CHELSEA LOPEZ DO Procedure: US OB cervical length Obstetrical ultrasound to assess for cervical length Cervical length 3.9 cm. Os closed. US/US OB cervical length IMPRESSION: Cervical length 3.9 cm. Impression dictated by: Ashish Wynn M.D. 04/10/2025 4:04 PM Dictation Location: [place] [address] Electronically authenticated by: [id number] Y Date: 6:04 Dictated By: Ashish Wynn D.O. Signed By:04/10/25 1607 DD/ 1604 TD/TT: Local Company Hazmat Driver: us Chelsea Lopez DO [facility] Final Result * US OB ANATOMY (04/10/2025 4:04 PM EDT) Anatomical Region Laterality Modality Other 04/10/2025 4:04 PM EDT Narrative 04/10/2025 4:07 [place] [address] Ultrasound Report Signed Patient: TARA ISLAS MR#: [id number] : 1995 Acct:[id number] Age/Sex: 30 / F ADM Date: 04/10/25 Loc: US Attending Dr: Chelsea Lopez D.O. Ordering Physician: Chelsea Lopez D.O. Date of Service: 04/10/25 Procedure(s): US OB anatomy Accession Number(s): [id number] cc: MATT BRODERICK ; Chelsea Lopez D.O. [place] [id number] Patient Name: TARA ISLAS MRN: [id number] date: 1995 Sex: F Assigned Patient Location: US Current Patient Location: US Accession/Order Number: [id number] Exam Date: 04/10/2025 16:00 Report Date: 04/10/2025 16:04 At the request of: CHELSEA LOPEZ DO Procedure: US OB anatomy Obstetrical Ultrasound for Fetus greater than 14 weeks HISTORY: anatomy assessment heart rate is 153 bpm. The fetus is in transverse presentation with transverse lie. The placenta is in a anterior fundalposition with normal appearance. Amniotic fluid index is subjectively normal The cervix has a length of 3.9cm. Cervical os closed. The estimated weight is 430 g.. with percentile to 94.2%. The ovaries are not visualized. No fluid identified in the cul-de-sac. Following anatomy identified. Ventricles, cerebellum, posterior fossa, nose and lips, orbits, four-chamber heart, right ventricular outflow track and left ventricular outflow track, diaphragm, stomach, kidneys, cord insertion, bladder, umbilical arteries, three-vessel cord, spine, and extremities. The biparietal diameter measures 5.0 cmcm consistent with 21 weeks 1 day. Head circumference measures 18.2cm consistent with 20 weeks 4 days. Abdominal circumference measures 17.2cm consistent with 22 weeks 1 day. Femur length is 3.5cm consistent with 20 weeks 1 day. The average gestational age is 21 weeks 2 days. Estimated due date is 08/19/2025. somatic motion identified. US/US OB anatomy IMPRESSION: Single live intrauterine gestation 21 weeks 2 days. The anatomy as above. Impression dictated by: Ashish Wynn M.D. 04/10/2025 4:04 PM Dictation Location: [place] [address] Electronically authenticated by: [id number] Y Date: 04/10/2025 16:04 Dictated By: Ashish Wynn D.O. Signed By: 04/10/25 1607 DD/ 1604 TD/TT: Local Company Hazmat Driver: Procedure Note Radiology, Radiologist, - 04/10/2025 [place] [address] Ultrasound Report Signed Patient: TARA ISLAS AMR#: [id number] : 1995Acct:[id number] Age/Sex: 30 / FADM Date: 04/10/25 Loc: US Attending Dr: Chelsea Lopez D.O. Ordering Physician: Chelsea Lopez D.O. Date of Service: 04/10/25 Procedure(s): US OB anatomy Accession Number(s): [id number] cc: MATT BRODERICK ; Chelsea Lopez D.O. [place] [address] Patient Name: TARA ISLAS MRN: [id number] date: 1995 Sex: F Assigned Patient Location: US Current Patient Location: US Accession/Order Number: [id number] Exam Date: 04/10/2025 16:00 Report Date: 04/10/2025 16:04 At the request of: CHELSEA LOPEZ DO Procedure: US OB anatomy Obstetrical Ultrasound for Fetus greater than 14 weeks HISTORY: anatomy assessment heart rate is 153 bpm. The fetus is in transverse presentation with transverse lie. The placenta is in a anterior fundalposition with normal appearance. Amniotic fluid index is subjectively normal The cervix has a length of 3.9cm. Cervical os closed. The estimated weight is 430g.. with percentile to 94.2%. The ovaries are not visualized. No fluid identified in the cul-de-sac. Following anatomy identified. Ventricles, cerebellum, posteriorfossa, nose and lips, orbits, four-chamber heart, right ventricular outflow trackand left ventricular outflow track, diaphragm, stomach, kidneys, cordinsertion, bladder, umbilical arteries, three-vessel cord, spine, and extremities. The biparietal diameter measures 5.0 cmcm consistent with 21 weeks 1 day. Head circumference measures 18.2cm consistent with 20 weeks 4 days. Abdominal circumference measures 17.2cm consistent with 22 weeks 1 day. Femur length is 3.5cm consistent with 20 weeks 1 day. The average gestational age is 21 weeks 2 days. Estimated due date is 08/19/2025. somatic motion identified. US/US OB anatomy IMPRESSION: Single live intrauterine gestation 21 weeks 2 days. The anatomy as above. Impression dictated by: Ashish Wynn M.D. 04/10/2025 4:04 PM Dictation Location: [place] [address] Electronically authenticated by: [id number] Y Date: 6:04 Dictated By: Ashish Wynn D.O. Signed By:04/10/25 1607 DD/ 1604 TD/TT: Local Company Hazmat Driver: Chelsea John DO [facility] Final Result * (ABNORMAL) RECURRENT VAGINITIS (HTRX) (04/03/2025 12:58 PM EDT) [facility] ATOPOBIUM VAGINAE 27.450(A) 19.961 - 24.689 ppm 04/04/2025 6:19 AM EDT [facility] ATOPOBIUM VAGINAE Detected(A) 19.961 - 24.689 ppm 04/04/2025 6:19 AM EDT [facility] BVAB 2,3 (BACTERIAL VAGINOSIS ASSOCIATED BACTERIA 2, 3); MOBILUNCUS SPP 17.543(A) 19.961 - 24.689 ppm 04/04/2025 6:19 AM EDT [facility] BVAB 2,3 (BACTERIAL VAGINOSIS ASSOCIATED BACTERIA 2, 3); MOBILUNCUS SPP Detected(A) 19.961 - 24.689 ppm 04/04/2025 6:19 AM EDT [facility] AYSHA ALBICANS, PARAPSILOSIS, TROPICALIS 0.000 19.961 - 30.770 ppm 04/04/2025 6:19 AM EDT [facility] AYSHA ALBICANS, PARAPSILOSIS, TROPICALIS Not Detected 19.961 - 30.770 ppm 04/04/2025 6:19 AM EDT [facility] AYSHA GLABRATA 0.000 23.000 - 32.138 ppm 04/04/2025 6:19 AM EDT [facility] AYSHA GLABRATA Not Detected 23.000 - 32.138 ppm 04/04/2025 6:19 AM EDT [facility] AYSHA KRUSEI 16.514(A) 23.000 - 32.271 ppm 04/04/2025 6:19 AM EDT [facility] AYSHA KRUSEI Detected(A) 23.000 - 32.271 ppm 04/04/2025 6:19 AM EDT [facility] CHLAMYDIA TRACHOMATIS 0.000 23.000 - 31.467 ppm 04/04/2025 6:19 AM EDT [facility] CHLAMYDIA TRACHOMATIS Not Detected 23.000 - 31.467 ppm 04/04/2025 6:19 AM EDT [facility] GARDNERELLA VAGINALIS 26.666(A) 19.961 - 24.689 ppm 04/04/2025 6:19 AM EDT [facility] GARDNERELLA VAGINALIS Detected(A) 19.961 - 24.689 ppm 04/04/2025 6:19 AM EDT [facility] MEGASPHAERA (TYPES 1, 2) 21.837(A) 19.961 - 24.689 ppm 04/04/2025 6:19 AM EDT [facility] MEGASPHAERA (TYPES 1, 2) Detected(A) 19.961 - 24.689 ppm 04/04/2025 6:19 AM EDT [facility] NEISSERIA GONORRHOEAE 0.000 23.000 - 32.117 ppm 04/04/2025 6:19 AM EDT [facility] NEISSERIA GONORRHOEAE Not Detected 23.000 - 32.117 ppm 04/04/2025 6:19 AM EDT [facility] TRICHOMONAS VAGINALIS 0.000 23.000 - 32.119 ppm 04/04/2025 6:19 AM EDT [facility] TRICHOMONAS VAGINALIS Not Detected 23.000 - 32.119 ppm 04/04/2025 6:19 AM EDT [facility] MYCOPLASMA GENITALIUM 0.000 19.961 - 24.689 ppm 04/04/2025 6:19 AM EDT [facility] MYCOPLASMA GENITALIUM Not Detected 19.961 - 24.689 ppm 04/04/2025 6:19 AM EDT [facility] ERMB, C; MEFA 22.692(A) 23.000 - 27.611 ppm 04/04/2025 6:19 AM EDT [facility] ERMB, C; MEFA Detected(A) 23.000 - 27.611 ppm 04/04/2025 6:19 AM EDT [facility] TET B, TET M 20.933(A) 23.000 - 27.778 ppm 04/04/2025 6:19 AM EDT [facility] TET B, TET M Detected(A) 23.000 - 27.778 ppm 04/04/2025 6:19 AM EDT [facility] Tissue 04/03/2025 12:5 8 PM EDT 04/04/2025 1:30 AM EDT Josi HERNANDEZ LAB BLOOD ORDERABLES Final Resul t [facility] [address] [place] [address] from Last 3 Months Insurance [place] [employer] Care Teams Warehouse Order Selector Relationship Specialty Start Date End Date Radha Calix PA PCP - [facility] Diana PHYSICAL SCIENCE PROFESSOR 05/14/24
--- OUTSIDE RECORDS SUMMARY | 2025-05-29 10:22 | XMS_ITS | Encounter Summary ---
Author Organization [facility] Address [address] [facility] [place] [address] Care Team Providers Care Security Alarm Technician Name Role Phone Radha Calix Unavailable [phone] Encounter Details Date Type Department Care Team (Late Contact Info) Description 12/24/2024 Orders Only [facility] [address] [place] [address] Ophelia Barros LPN [address] [facility] [address], [place] [address] Social History Tobacco Use Types Packs/Day Years [...] Department Care Team (Late Contact Info) Description 05/29/2025 1:20 PM EDT Routine [facility] [address] [place] [address] Josi Cardoza PA [facility] [place] [address] 12/16/2025 2:00 PM EST Office Visit [facility] [address] [place] [address] Henok Lopez DO [address] [place] [address] [place] [address] documented as of this encounter Procedures Procedure Name Priority Date/Time Associated Diagnosis Comments PAP SMEAR Routine 12/11/2024 12:00 AM EST documented in this encounter Results * Pap Smear (12/11/2024 12:00 AM EST) Swab Cervical swab / Unknown us John Nurse [facility] Ob LAB CYTOLOGY ORDERABLES Final Result EXTERNAL LAB documented in this encounter Visit Diagnoses Not on filedocumented in this encounter Care Teams Security Alarm Technician Relationship Specialty Start Date End Date Radha Calix PA PCP - [facility] [place] BURDEN 05/14/24 documented as of this encounter
--- OUTSIDE RECORDS SUMMARY | 2025-05-29 10:22 | XMS_ITS | Encounter Summary ---
Author Organization [facility] Address [address] [facility] [place] [address] Care Team Providers Care Catheter Finisher And Inspector Name Role Phone Radha Calix Unavailable Encounter Details Date Type Department Care Team (Late st Contact Info) Description 02/07/2025 Abstract [facility] OB [address] [facility] [place] [address] Henok Lopez DO [address] [place] [address] Dr [place], [id number] Social History Tobacco Use Types Packs/Day Years [...] Description 05/29/2025 1:20 PM EDT Routine [facility] OB [address] [facility] [place] [address] Josi Cardoza PA [address] [facility] [address] [place], [place] [address] 12/16/2025 2:00 PM EST Office Visit [facility] BCP OB [facility] [place] [address] Henok Lopez, [address] [place] [address] [place] [address] documented as of this encounter Visit Diagnoses Not on filedocumented in this encounter Care Teams Catheter Finisher And Inspector Relationship Specialty Start Date End Date Radha Calix PA PCP - [facility] [place] SHIFT PRODUCTION SUPERVISOR 05/14/24 documented as of this encounter
[2025-05-29 11:35] LABS: Hematocrit 30.1 % (36.0-48.0); Hemoglobin 10.0 g/dL (12.0-16.0); Immature Granulocytes Abs Auto 0.17 10^3/uL (0.00-0.03); Immature Granulocytes Pct Auto 1.7 % (0.0-0.5); Lymphocytes Absolute Auto 1.5 10^3/uL (1.2-3.8); Mean Corpuscular HGB Conc 33.2 g/dL (29.9-35.2); Mean Corpuscular Hemoglobin 29.2 pg (26.7-34.0); Mean Corpuscular Volume 88.0 fL (81.0-99.0); Platelet Count 176 10^3/uL (150-450); Red Blood Count 3.42 10^6/uL (4.20-5.40); White Blood Count 9.7 10^3/uL (4.0-11.0)
[2025-05-29 11:38] LABS: Glucose 1 Hour 129 mg/dL (<130)
== END 2025-05-29 10:20 | disposition home or self-care (01) ==
LOC: LAB 10:20
PROVIDERS: PCP Nurse Practitioner; Visit Provider Obstetrics & Gynecology
DX: Z13.1 Encounter for screening for diabetes mellitus (principal)
CPT/HCPCS: 36415; 82950; 85025

== ENCOUNTER 2025-07-17 14:58 | Outpatient (OUT) | payer MEDICAID, SELFPAY ==
--- NOTE | 2025-07-17 15:02 | US_ITS ---
[place] [id number] Patient Name: BRANDIE BRUNO MRN: [id number] date: 1995 Sex: F Assigned Patient Location: [facility] Current Patient Location: [facility] Accession/Order Number: [id number] Exam Date: 07/17/2025 15:03 Report Date: 07/17/2025 15:34 At the request of: NORM ALEGRE Procedure: US OB BPP w non-stress Biophysical profile. Reason for exam: Excessive growth COMPARISON: None TECHNIQUE: Transabdominal imaging of the gravid uterus was obtained. FINDINGS: The pressure test operator reports a BPP of 8 out of 8. BENNETT is normal at 15.6 cm. heart rate 145 bpm. US/US OB BPP w non-stress IMPRESSION: BPP 8 out of 8. Impression dictated by: Aaron Acevedo Jr., D.O. 07/17/2025 3:34 PM Dictation Location: [place] [address] Electronically authenticated by: [id number] Y Date: 07/17/2025 15:34
[2025-07-17 15:03] VITALS: BP 116/67; PULSE 95
--- OUTSIDE RECORDS SUMMARY | 2025-07-17 19:05 | XMS_ITS | CCD ---
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 1999(20) ++++ mg/dL [facility] Spec Grav, UA 1.02 1 - 1.03 [facility] Urobilinogen, UA 0.2 0.2 - 12 mg/dL [facility] Urinalysis macro (dipstick) panel (U)on 02-26-2025 Bilirubin, UA Negative Negative - 4(70) +++ mg/dL [facility] Blood, UA Negative Negative - 50 Abhi/mcL [facility] Clarity, UA Clear [facility] Color, UA Yellow [facility] Glucose, UA Negative Negative - 2000(110) ++++ mg/dL [facility] Interpretation and review of laboratory results Normal [facility] Ketones, UA Negative Negative - 160(16) ++++ mg/dL [facility] Leukocytes, UA Negative Negative - 500+++ Pura/mcL [facility] Nitrite, UA Negative Negative - Positive [facility] pH, UA 6 5 - 9 [facility] Protein, UA Negative Negative - 1999(20) ++++ mg/dL [facility] Spec Grav, UA 1.02 1 - 1.03 [facility] Urobilinogen, UA 0.2 0.2 - 12 mg/dL [facility] US OB TRANSVAGINALon 025 US OB TRANSVAGINAL EXAM: US OB TRANSVAGINAL HISTORY: Dating. COMPARISON: [...] the right ovary is not visualized. Electronically Signed:Jessica y signed by CATARINA OTOOLE II, MD, PHD at 27-Jan-2025 07:45:14 AM [facility] Normal Not Available Comment on above: Order Comment: US OB TRANSVAGINAL No LMP recorded. IGP,APTIMA HPV,AGE GDLNon AGE GDLN ACOG TESTING Note . [facility] Comment on above: TESTS RESULT FLAG UN ITS REF RANGE LAB Clinician Provided Cytology Information Source.............Cervix;Endocervix No. of containers..01 ThinPrep Vial Age Algo ACOG Violetta... FLAG LEGEND: L-Low Normal,H-High Normal,LL-Alert Low,HH-Alert High <-Panic Low,>-Panic High,A-Abnormal,AA-Critical Abnormal Performed at: 01 =G [facility] [address] Adriana Pfeiffer MD, IGP, RFX APTIMA HPV ASCU Note . [facility] Comment on above: TESTS RESULT FLAG UN ITS REF RANGE LAB DIAGNOSIS: 02 NEGATIVE FOR INTRAEPITHELIAL LESION OR MALIGNANCY. Specimen adequacy: 02 Satisfactory for evaluation. Endocervical and/or squamous metaplastic cells (endocervical component) are present. Performed by: 02 Erin Barbosa Ethylbenzene Converter Operator ([facility]) . 02 Note: Note 02 The Pap smear is a screening test designed to aid in the detection of premalignant and malignant conditions of the uterine cervix. It is not a diagnostic procedure and should not be used as the sole means of detecting cervical cancer. Both false-positive and false-negative reports do occur. Test Methodology: Note 02 This liquid based ThinPrep(R) pap test was screened with the use of an image guided system. . 02 The HPV DNA reflex criteria were not met with this specimen result therefore, no HPV testing was performed. FLAG LEGEND: L-Low Normal,H-High Normal,LL-Alert Low,HH-Alert High <-Panic Low,>-Panic High,A-Abnormal,AA-Critical Abnormal Performed at: [address] [address] Adriana Pfeiffer MD, Performed at: =G - [facility] [address] [id number] Machine Former: Adriana Pfeiffer MD, Phone: [phone] Performed at: - [facility] [id number] Machine Former: Adriana Pfeiffer MD, Phone: [phone] [facility] PO[facility] , urineon 02-13 Beta HCG ( test) Ql (U) Negative [facility] POCT Influenza A/Influenza B /SARS-COV-2 VeritorOrdered By: Ellie Ruvalcaba on 02-08-2024 External Poct Influenza A Antigen Negative [facility] External Poct Influenza B Antigen Negative [facility] SARS-CoV-2 (COVID-19) Ag IA.rapid Ql (Resp) Negative [facility] POCT rapid strep Aon 024 Internal Pneumatic Tester Check Completed and Passed Yes [facility] Interpretation and review of laboratory results Normal [facility] S. pyogenes Ag IA Ql (Unsp spec) Negative Negative [facility] US PELVIS AND TRANSVAGon US PELVIS [...] by: SAHARA APODACA Date: 2022-12-01 08:05 Normal [facility] US PELVIS TRANSVAGon 022 US PELVIS [...] by: YAMEL GOMEZ Date: 2022-02-10 14:27 Normal [facility] Vital Signs Date Time Vital Sign Value Performing Clinician Facility 07-10-2025 14:13-0400 Body mass index (BMI) [Ratio] 34.9 kg/m2 Chelsea John DO Work Phone: [facility] 07-10-2025 14:13-0400 Body weight 89.36 kg Chelsea John DO Work Phone: [facility] 07-10-2025 14:13-0400 Diastolic blood pressure 74 mm[Hg] Chelsea John DO Work Phone: [facility] 07-10-2025 14:13-0400 Systolic blood pressure 122 mm[Hg] Chelsea John DO Work Phone: [facility] 06-26-2025 13:34-0400 Body mass index (BMI) [Ratio] 34.28 kg/m2 Josi HERNANDEZ Work Phone: [facility] 06-26-2025 13:34-0400 Body weight 87.77 kg Josi HERNANDEZ Work Phone: [facility] 06-26-2025 13:34-0400 Diastolic blood pressure 60 mm[Hg] Josi HERNANDEZ Work Phone: [facility] 06-26-2025 13:34-0400 Systolic blood pressure 116 mm[Hg] Josi HERNANDEZ Work Phone: [facility] 06-11-2025 14:47-0400 Body mass index (BMI) [Ratio] 34.06 kg/m2 Chelsea John DO Work Phone: [facility] 06-11-2025 14:47-0400 Body weight 87.2 kg Chelsea John DO Work Phone: [facility] 06-11-2025 14:47-0400 Diastolic blood pressure 68 mm[Hg] Chelsea John DO Work Phone: [facility] 06-11-2025 14:47-0400 Systolic blood pressure 122 mm[Hg] Chelsea John DO Work Phone: [facility] 05-29-2025 13:39-0400 Body mass index (BMI) [Ratio] 33.66 kg/m2 Josi Sony PA Work Phone: [facility] 05-29-2025 13:39-0400 Body weight 86.18 kg Josi Sony PA Work Phone: [facility] 05-29-2025 13:39-0400 Diastolic blood pressure 70 mm[Hg] Josi Sony PA Work Phone: [facility] 05-29-2025 13:39-0400 Systolic blood pressure 110 mm[Hg] Josi Sony PA Work Phone: [facility] 05-02-2025 09:09-0400 Body mass index (BMI) [Ratio] 32.42 kg/m2 Chelsea John DO Work Phone: [facility] 05-02-2025 09:09-0400 Body weight 83.01 kg Chelsea John DO Work Phone: [facility] 05-02-2025 09:09-0400 Diastolic blood pressure 64 mm[Hg] Chelsea John DO Work Phone: [facility] 05-02-2025 09:09-0400 Systolic blood pressure 102 mm[Hg] Chelsea John DO Work Phone: [facility] 04-03-2025 09:41-0400 Body mass index (BMI) [Ratio] 31 kg/m2 Josi Sony PA Work Phone: [facility] 04-03-2025 09:41-0400 Body weight 79.38 kg Josi Sony PA Work Phone: [facility] 04-03-2025 09:41-0400 Diastolic blood pressure 72 mm[Hg] Josi Duenas PA Work Phone: [facility] 04-03-2025 09:41-0400 Systolic blood pressure 116 mm[Hg] Josi HERNANDEZ Work Phone: [facility] 02-26-2025 09:50-0400 Body mass index (BMI) [Ratio] 29.94 kg/m2 Chelsea John DO Work Phone: [facility] 02-26-2025 09:50-0400 Body weight 76.66 kg Chelsea John DO Work Phone: [facility] 02-26-2025 09:50-0400 Diastolic blood pressure 76 mm[Hg] Chelsea John DO Work Phone: [facility] 02-26-2025 09:50-0400 Systolic blood pressure 110 mm[Hg] Chelsea John DO Work Phone: [facility] 12-11-2024 13:26-0500 Body mass index (BMI) [Ratio] 29.05 kg/m2 Chelsea John DO Work Phone: [facility] 12-11-2024 13:26-0500 Body weight 74.39 kg Chelsea John DO Work Phone: [facility] 12-11-2024 13:26-0500 Diastolic blood pressure 68 mm[Hg] Chelsea John DO Work Phone: [facility] 12-11-2024 13:26-0500 Systolic blood pressure 114 mm[Hg] Chelsea John DO Work Phone: [facility] 07-03-2024 15:11-0400 Body height 157.48 cm [facility] 07-03-2024 15:11-0400 Body mass index (BMI) [Ratio] 29.2 kg/m2 [facility] 07-03-2024 15:11-0400 Body weight 72.57 kg [facility] 03-12-2024 11:21-0400 Body height 157.5 cm Matt THOMPSON Work Phone: [facility] 03-12-2024 11:21-0400 Body mass index (BMI) [Ratio] 28.55 kg/m2 Matt Sandra APRN-YVES Work Phone: [facility] [employer] [facility] 03-12-2024 11:21-0400 Body temperature 98.1 [degF] Matt Sandra APRN-CORPORATE INVESTIGATOR Work Phone: [facility] [employer] [facility] 03-12-2024 11:21-0400 Body weight 70.81 kg Matt Sandra APRN-CORPORATE INVESTIGATOR Work Phone: [facility] [employer] [facility] 03-12-2024 11:21-0400 Diastolic blood pressure 68 mm[Hg] Matt Sandra APRN-YVES Work Phone: [facility] [employer] [facility] 03-12-2024 11:21-0400 Heart rate 79 /min Matt Sandra APRN-YVES Work Phone: [facility] [employer] 03-12-2024 11:21-0400 Respiratory rate 20 /min Matt Sandra APRN-YVES Work Phone: [facility] [employer] [facility] 03-12-2024 11:21-0400 SaO2% (BldA) [Mass fraction] 100 % Matt Sandra APRN-YVES Work Phone: [facility] [employer] [facility] 03-12-2024 11:21-0400 Systolic blood pressure 110 mm[Hg] Matt Sandra APRN-YVES Work Phone: [facility] [employer] [facility] 02-08-2024 11:53-0400 Body height 157.5 cm Cuco Ceron APRN-CORPORATE INVESTIGATOR Work Phone: [facility] [employer] [facility] 02-08-2024 11:53-0400 Body mass index (BMI) [Ratio] 28.9 kg/m2 Cuco Ceron APRN-CORPORATE INVESTIGATOR Work Phone: [facility] [employer] [facility] 02-08-2024 11:53-0400 Body temperature 98.2 [degF] Cuco Ceron APRN-CORPORATE INVESTIGATOR Work Phone: [facility] 02-08-2024 11:53-0400 Body weight 71.67 kg Cuco Ceron ICE GRINDER-CORPORATE INVESTIGATOR Work Phone: [facility] 02-08-2024 11:53-0400 Diastolic blood pressure 68 mm[Hg] Cuco Ceron ICE GRINDER-CORPORATE INVESTIGATOR Work Phone: [facility] 02-08-2024 11:53-0400 Heart rate 97 /min Cuco Ceron ICE GRINDER-CORPORATE INVESTIGATOR Work Phone: [facility] 02-08-2024 11:53-0400 Respiratory rate 18 /min Cuco Ceron ICE GRINDER-CORPORATE INVESTIGATOR Work Phone: [facility] 02-08-2024 11:53-0400 SaO2% (BldA) [Mass fraction] 97 % Cuco Ceron APRN-CORPORATE INVESTIGATOR Work Phone: [facility] 02-08-2024 11:53-0400 Systolic blood pressure 112 mm[Hg] Cuco Ceron APRN-CORPORATE INVESTIGATOR Work Phone: [facility] 01-03-2024 10:16-0500 Body height 157.5 cm Matt Sandra APRN-CORPORATE INVESTIGATOR Work Phone: [facility] 01-03-2024 10:16-0500 Body mass index (BMI) [Ratio] 29.23 kg/m2 Matt Sandra APRN-CORPORATE INVESTIGATOR Work Phone: [facility] 01-03-2024 10:16-0500 Body temperature 97.3 [degF] Matt Sandra APRN-CORPORATE INVESTIGATOR Work Phone: [facility] 01-03-2024 10:16-0500 Body weight 72.48 kg Matt Sandra APRN-CORPORATE INVESTIGATOR Work Phone: [facility] 01-03-2024 10:16-0500 Diastolic blood pressure 58 mm[Hg] Matt Sandra APRN-CORPORATE INVESTIGATOR Work Phone: [facility] 01-03-2024 10:16-0500 Heart rate 72 /min Matt Sandra APRN-CORPORATE INVESTIGATOR Work Phone: [facility] [employer] [facility] 01-03-2024 10:16-0500 SaO2% (BldA) [Mass fraction] 99 % Matt Sandra APRN-CORPORATE INVESTIGATOR Work Phone: [facility] [employer] [facility] 01-03-2024 10:16-0500 Systolic blood pressure 102 mm[Hg] Matt Sandra APRN-CORPORATE INVESTIGATOR Work Phone: [facility] Encounters Encounter Date Encounter Type Care Provider Facility Start: 07-17-2025 End: 07-17-2025 Clinisync Result Encounter Jo Ann Scanlonkriss SOLANO Work Phone: [facility] Unsolicited Start: 07-17-2025 End: 07-17-2025 Clinisync Result Encounter Jo Ann Carey SOLANO Work Phone: [facility] Unsolicited Start: 07-10-2025 End: 07-10-2025 Office outpatient visit 15 minutes Chelsea John DO Work Phone: [facility] Comment on above: Excessive grow th affecting management of in third trimester, single or unspecified fetus ([facility]HS-HCC) (Primary Dx); Third trimester (HHS-HCC); 33 weeks gestation of ([facility]HS-HCC); Hematuria, unspecified type Start: 07-10-2025 End: 07-10-2025 ambulatory CHELSEA JOHN Not Available Start: 06-26-2025 End: 06-26-2025 Bamboo flowsheet Josi HERNANDEZ Work Phone: [facility] Start: 06-26-2025 End: 06-26-2025 Bamboo flowsheet Josi HERNANDEZ Work Phone: [facility] Start: 06-26-2025 End: 06-26-2025 Office outpatient visit 15 minutes Josi HERNANDEZ Work Phone: [facility] Comment on above: Third trimester preg alejandro ([facility]); 31 weeks gestation of ([facility]) Start: 06-26-2025 End: 06-26-2025 ambulatory JOSI DUENAS Not Available Start: 06-11-2025 End: 06-11-2025 ambulatory CHELSEA JOHN Not Available Start: 06-11-2025 End: 06-11-2025 Office outpatient visit 15 minutes Chelsea John DO Work Phone: [facility] Comment on above: Third trimester preg alejandro ([facility]); 29 weeks gestation of ([facility]); Anemia affecting in third trimester ([facility]); Excessive growth affecting management of , antepartum, single or unspecified fetus ([facility]) Start: 06-11-2025 End: 06-11-2025 ambulatory CHELSEA JOHN Not Available Start: 05-29-2025 End: 05-29-2025 Clinisync Result Encounter Chelsea John DO Work Phone: [facility] Unsolicited Start: 05-29-2025 End: 05-29-2025 Clinisync Result Encounter Chelsea John DO Work Phone: [facility] Unsolicited Start: 05-29-2025 End: 05-29-2025 ambulatory JOSI DUENAS Not Available Start: 05-29-2025 End: 05-29-2025 Office outpatient visit 15 minutes Josi Duenas PA Work Phone: [facility] Comment on above: Size of fetus incons istent with dates in second trimester ([facility]) (Primary Dx); Second trimester ([facility]); 27 weeks gestation of ([facility]) Start: 05-02-2025 End: 05-02-2025 Bamboo flowsheet Chelsea John DO Work Phone: [facility] Start: 05-02-2025 End: 05-02-2025 Bamboo flowsheet Chelsea John DO Work Phone: [facility] Start: 05-02-2025 End: 05-02-2025 ambulatory CHELSEA JOHN Not Available Start: 05-02-2025 End: 05-02-2025 Office outpatient visit 15 minutes Chelsea John DO Work Phone: [facility] Comment on above: Diabetes mellitus sc reening; Second trimester ([facility]); 23 weeks gestation of ([facility]) Start: 04-10-2025 End: 04-10-2025 Clinisync Result Encounter Chelsea John DO Work Phone: [facility] Unsolicited Start: 04-10-2025 End: 04-10-2025 Clinisync Result Encounter Chelsea John DO Work Phone: [facility] External Department Unsolicited Start: 04-03-2025 End: 04-03-2025 Bamboo flowsheet Josi HERNANDEZ Work Phone: [facility] Start: 04-03-2025 End: 04-04-2025 Bamboo flowsheet Josi HERNANDEZ Work Phone: [facility] Start: 04-03-2025 End: 04-04-2025 External Result Encounter Josi HERNANDEZ Work Phone: [facility] Unsolicited Start: 04-03-2025 End: 04-03-2025 Office outpatient visit 15 minutes Josi HERNANDEZ Work Phone: [facility] Comment on above: Second trimester pre gnancy; 18 weeks gestation of ; Screening, , for anatomic survey; Screening examination for STI; Need for maternal serum alpha-protein (MSAFP) screening Start: 04-03-2025 End: 04-03-2025 ambulatory JOSI DUENAS Not Available Start: 02-26-2025 End: 02-26-2025 Bamboo flowsheet Chelsea John DO Work Phone: [facility] Start: 02-26-2025 End: 02-26-2025 Bamboo flowsheet Chelsea John DO Work Phone: [facility] Start: 02-26-2025 End: 02-26-2025 Office outpatient visit 15 minutes Chelsea John DO Work Phone: [facility] Comment on above: Second trimester pre gnancy; 12 weeks gestation of Start: 02-26-2025 End: 02-26-2025 ambulatory CHELSEA JOHN Not Available Start: 01-25-2025 End: 01-25-2025 ambulatory CHELSEA JOHN Not Available Start: 12-11-2024 End: 12-11-2024 Bamboo flowsheet Chelsea John DO Work Phone: [facility] Start: 12-11-2024 End: 12-17-2024 Bamboo flowsheet Chelsea John DO Work Phone: [facility] Start: 12-11-2024 End: 12-17-2024 Clinisync Result Encounter Chelsea John DO Work Phone: [facility] External Department Unsolicited Start: 12-11-2024 End: 12-11-2024 Patient encounter procedure Chelsea John DO Work Phone: [facility] Start: 12-11-2024 End: 12-11-2024 Periodic preventive med est patient 18-39 yrs Chelsea John DO Work Phone: [facility] Comment on above: Well woman exam with routine gynecological exam Start: 12-11-2024 End: 12-11-2024 ambulatory CHELSEA JOHN Not Available Start: 07-03-2024 End: 07-03-2024 ambulatory [facility] Work Phone: Start: 07-03-2024 End: 07-03-2024 Patient encounter procedure [facility] Work Phone: Start: 04-10-2024 Non-patient / Non-visit [facility] Work Phone: Start: 03-12-2024 End: 03-12-2024 ambulatory [facility] Start: 03-12-2024 End: 03-12-2024 Office outpatient visit 15 minutes Matt Sandra ICE GRINDER-CORPORATE INVESTIGATOR Work Phone: [facility] Comment on above: Anxiety and depressi on (Primary Dx); Nausea; Syncope, unspecified syncope type Start: 02-27-2024 End: 02-28-2024 ambulatory [facility] Travis burton Start: 02-09-2024 Telephone encounter Mikala sultana [facility] Start: 02-08-2024 End: 02-08-2024 ambulatory [facility] Start: 02-08-2024 End: 02-08-2024 Office outpatient visit 15 minutes [facility] Work Phone: [facility] Comment on above: Viral upper respirat ory tract infection (Primary Dx); Chills; Epigastric pain; Syncope and collapse; Gastroesophageal reflux disease, unspecified whether esophagitis present Start: 01-03-2024 End: 01-03-2024 ambulatory [facility] Start: 01-03-2024 End: 01-03-2024 [facility]IND[facility]-CORPORATE INVESTIGATOR Work Phone: [facility] Comment on above: Anxiety and depressi on (Primary Dx) Start: 12-01-2022 End: 12-01-[address] CHELSEA LOPEZ Facility:[facility] Start: 11-30-2022 End: 12-01-[address] CHELSEA LOPEZ Facility:[facility] Start: 02-10-2022 End: 02-11-[address] CHELSEA LOPEZ Facility:[facility] Start: 07-29-2017 End: 07-29-2017 Emergency department patient visit [facility] Procedures Date Procedure Procedure Detail Performing Clinician Start: 07-17-2025 US OB BPP W NON-STRESS Jo Ann Patino FOWL BLOOD TESTER Work Phone: Start: 07-10-2025 Urnls dip stick/tabl et rgnt non-auto w/o micrscp Chelsea Lopez DO Work Phone: Start: 06-26-2025 Urnls dip stick/tabl et rgnt non-auto w/o micrscp Josi HERNANDEZ Work Phone: Start: 06-11-2025 Urnls dip stick/tabl et rgnt non-auto w/o micrscp Chelsea John DO Work Phone: Start: 05-29-2025 Urnls dip stick/tabl et rgnt non-auto w/o micrscp Josi HERNANDEZ Work Phone: Start: 05-29-2025 ALL CBC WITH AUTO DIFF Chelsea John DO Work Phone: Start: 05-02-2025 Urnls dip stick/tabl et rgnt non-auto w/o micrscp Chelsea John DO Work Phone: Start: 04-10-2025 US OB ANATOMY Chelsea Da io DO Work Phone: Start: 04-10-2025 US OB CERVICAL LENGTH C orey John DO Work Phone: Start: 04-03-2025 RECURRENT VAGINITIS (HTRX) Josi HERNANDEZ Work Phone: Start: 04-03-2025 Urnls dip stick/tabl et rgnt non-auto w/o micrscp Josi HERNANDEZ Work Phone: Start: 02-26-2025 Urnls dip stick/tabl et rgnt non-auto w/o micrscp Chelsea John DO Work Phone: Start: 12-11-2024 IGP,APTIMA HPV,AGE GDLN Chelsea John DO Work Phone: Start: 03-12-2024 Follow-up visit Follow-up MATT SANDRA Start: 03-12-2024 Urine test visual color cmprsn meths Matt Sandra [employer]PORATE INVESTIGATOR Work Phone: Start: 03-12-2024 Adult depression scr eening assessment Matt Sandra [employer]PORATE INVESTIGATOR Work Phone: Start: 02-08-2024 Iaadiadoo streptococ cus group a Cuco Ceron [facility] Work Phone: Start: 02-08-2024 POCT INFLUENZA A/INF LUENZA B/SARS-COV-2 VERITOR Cuco Ceron [facility] Work Phone: Start: 02-08-2024 Adult depression scr eening assessment [facility] Work Phone: Start: 01-03-2024 Adult depression scr eening assessment Matt Sandra [facility] Work Phone: Start: 08-09-2018 Microscopic observat ion [Identifier] in Cervix by Cyto stain Matt Sandra [facility] Work Phone: Plan of Treatment Date Care Activity Detail Author Start: 12-16-2025 End: 12-16-2025 Patient encounter procedure [facility] Start: 08-05-2025 End: 08-05-2025 Patient encounter procedure 08/05/2025 10:50 AM EDT Routine [facility] [address] [place] [phone] Chelsea Lopez DO [address] [place] [address] [facility] [place] [facility] Start: 07-31-2025 End: 07-31-2025 Professional / ancillary services management 07/31/2025 9:30 AM EDT Ancillary Procedure [facility] [address] [place] [address] [facility] [place] [facility] Start: 07-29-2025 End: 07-29-2025 Patient encounter procedure 07/29/2025 9:20 AM EDT Routine [facility] [place] [facility] [address] [address] Josi Duenas PA [address] [place] [address] [facility] Start: 07-15-2025 Influenza vaccination [facility] Start: 07-10-2025 End: 07-10-2025 Patient encounter procedure 07/10/2025 2:10 PM EDT Routine MANDE[facility] HERNANDEZ [address] [place] [phone] Chelsea Lopez DO [address] [place] [address] [facility] [place] [facility] Start: 07-10-2025 End: 01-10-2026 US biophysical profile w non stress test US biophysical profile w non stress test Imaging Routine Excessive growth affecting management of in third trimester, single or unspecified fetus ([facility]) Expected: 07/10/2025 (Approximate), Expires: 01/10/2026 [facility] Comment on above: Expected: 07/10/2025 (Approximate), Expires: 01/10/2026 Start: 07-10-2025 End: 11-09-2025 US for US OB follow up transabdominal approach Imaging Routine Excessive growth affecting management of in third trimester, single or unspecified fetus ([facility]) Expected: 07/10/2025, Expires: 11/09/2025 [facility] Work Phone: Comment on above: Expected: 07/10/2025 , Expires: 11/09/2025 Start: 07-10-2025 End: 07-10-2025 Professional / ancillary services management 07/10/2025 1:30 PM EDT Ancillary Procedure MANDEEP HERNANDEZ [address] [place] [phone] [facility] Start: 06-26-2025 End: 06-26-2025 Patient encounter procedure [facility] Comment on above: Arrived Start: 06-11-2025 End: 06-11-2025 Patient encounter procedure 06/11/2025 2:00 PM EDT Routine [facility] [address] [place] [phone] Chelsea Lopez DO [address] [place] [address] [facility] Start: 06-11-2025 End: 10-12-2025 US for US OB follow up transabdominal approach Imaging Routine Excessive growth affecting management of , antepartum, single or unspecified fetus ([facility]) Expected: 06/11/2025, Expires: 10/12/2025 [facility] Work Phone: Comment on above: Expected: 06/11/2025 , Expires: 10/12/2025 Start: 06-11-2025 End: 06-11-2025 Professional / ancillary services management 06/11/2025 1:30 PM EDT Ancillary Procedure [facility] [address] [phone] [facility] Start: 05-29-2025 End: 09-29-2025 US for US OB follow up transabdominal approach Imaging Routine Size of fetus inconsistent with dates in second trimester ([facility]) Expected: 05/29/2025, Expires: 09/29/2025 [facility] Work Phone: Comment on above: Expected: 05/29/2025 , Expires: 09/29/2025 Start: 05-29-2025 End: 05-29-2025 Patient encounter procedure 05/29/2025 1:20 PM EDT Routine [facility] [address] [place] [phone] Josi Duenas PA [address] [place] [address] [facility] Start: 05-02-2025 End: 05-02-2026 CBC panel - Blood by Automated count CBC Lab Routine Diabetes mellitus screening Expected: 05/02/2025 (Approximate), Expires: 05/02/2026 [facility] Work Phone: Comment on above: Expected: 05/02/2025 (Approximate), Expires: 05/02/2026 Start: 05-02-2025 End: 05-02-2026 Measurement of glucose 1 hour after glucose challenge for glucose tolerance test Glucose tolerance, 1 hour Lab Routine Diabetes mellitus screening Expected: 05/02/2025 (Approximate), Expires: 05/02/2026 [facility] Comment on above: Expected: 05/02/2025 (Approximate), Expires: 05/02/2026 Start: 05-02-2025 End: 05-02-2025 Patient encounter procedure 05/02/2025 8:50 AM EDT Routine [facility] [address] [place] [phone] Chelsea Lopez, DO [address] [place] [address] [facility] Start: 04-03-2025 End: 05-04-2025 Alpha fetoprotein, maternal Alpha fetoprotein, maternal Lab Routine Need for maternal serum alpha-protein (MSAFP) screening Expected: 04/03/2025 (Approximate), Expires: 05/04/2025 [facility] Comment on above: Expected: 04/03/2025 (Approximate), Expires: 05/04/2025 Start: 04-03-2025 End: 07-04-2025 US for US OB 14+ weeks anatomy scan Imaging Routine Screening, , for anatomic survey Expected: 04/03/2025, Expires: 07/04/2025 [facility] Comment on above: Expected: 04/03/2025 , Expires: 07/04/2025 Start: 04-03-2025 End: 04-03-2025 Patient encounter procedure [facility] Comment on above: Arrived Start: 03-12-2025 Adult BMI Screening Adult BMI Screen ing [facility] Start: 03-12-2025 Depression Screening Depression Scre ening [facility] Start: 03-12-2025 Tobacco Screening Tobacco Screening [facility] Start: 02-26-2025 End: 02-26-2025 Patient encounter procedure 02/26/2025 9:50 AM EDT Routine [facility] [address] [place] [phone] Chelsea Lopez, DO [address] [place] [address] Arrived [facility] Comment on above: Arrived Start: 02-07-2025 Adult BMI Screening Adult BMI Screen ing [facility] Start: 02-07-2025 Depression Screening Depression Scre ening [facility] Start: 02-07-2025 Tobacco Screening Tobacco Screening [facility] Start: 01-03-2025 Adult BMI Follow Up Plan Adult BMI Follow Up Plan [facility] Start: 01-03-2025 Adult BMI Screening Adult BMI Screen ing [facility] Start: 01-03-2025 Depression Screening Depression Scre ening [facility] Start: 01-03-2025 Tobacco Screening Tobacco Screening [facility] Start: 12-11-2024 End: 12-11-2024 Patient encounter procedure 12/11/2024 1:20 PM EST Office Visit [facility] [address] [place] [phone] Chelsea Lopez, DO [address] [place] [address] Arrived [facility] Comment on above: Arrived Start: 07-15-2024 Influenza vaccination Influenza Vacc ine (#1) [facility] Start: 03-12-2024 End: 03-12-2024 Patient encounter procedure 03/12/2024 11:20 AM EDT [facility] [address] [place] [phone] Matt Sandra, [employer]PORATE INVESTIGATOR [address] [place] [phone] [facility] Start: 02-21-2024 End: 02-21-2024 Patient encounter procedure 02/21/2024 9:40 AM EDT Office Visit [facility] [address] [place] [address] Matt Sandra, [employer]PORATE INVESTIGATOR [address] [place] [address] [facility] Start: 02-08-2024 End: 02-07-2025 Event monitor Event monitor Cardiac Services Routine Syncope and collapse Expected: 02/08/2024, Expires: 02/07/2025 [facility] Work Phone: Comment on above: Expected: 02/08/2024 , Expires: 02/07/2025 Start: 08-09-2021 Screening for malign ant neoplasm of cervix Pap Smear [facility] Start: 02-02-2007 DTaP,Tdap and Td Vaccines (6 - Tdap) DTaP,Tdap and Td Vaccines (6 - Tdap) [facility] Bacteria identified in Urine by Culture Urine culture Microbiology Routine Hematuria, unspecified type Ordered: 07/10/2025 [facility] Comment on above: Ordered: 07/10/2025 End: 03-12-2025 Basic metabolic 2000 panel - Serum or Plasma Basic Metabolic Panel Lab Routine Nausea 1 Occurrences starting 03/12/2024 until 03/12/2025 [facility] Comment on above: 1 Occurrences starti ng 03/12/2024 until 03/12/2025 End: 03-12-2025 CBC W Auto Differential panel - Blood CBC auto differential Lab Routine Nausea 1 Occurrences starting 03/12/2024 until 03/12/2025 [facility] Work Phone: Comment on above: 1 Occurrences starti ng 03/12/2024 until 03/12/2025 CHLAMYDIA TRACHOMATI S (GENITO/STI) CHLAMYDIA TRACHOMATIS (GENITO/STI) Lab Routine Screening examination for STI Ordered: 04/03/2025 [facility] Comment on above: Ordered: 04/03/2025 Cytology Cervical or vaginal smear or scraping study Pap Smear Pathology and Cytology Routine Well woman exam with routine gynecological exam Ordered: 12/11/2024 [facility] [employer] Work Phone: Comment on above: Ordered: 12/11/2024 Hepatic function panel [facility] Neisseria gonorrhoea e DNA [Presence] in Unspecified specimen by MARION with probe detection Neisseria gonorrhea DNA probe, direct Lab Routine Screening examination for STI Ordered: 04/03/2025 [facility] Comment on above: Ordered: 04/03/2025 SURESWAB(R) ADVANCED VAGINITIS PLUS, TMA SURESWAB(R) ADVANCED VAGINITIS PLUS, TMA Pathology and Cytology Routine Screening examination for STI Ordered: 04/03/2025 [facility] [employer] Work Phone: Comment on above: Ordered: 04/03/2025 US Abdomen limited [facility] Immunizations Immunization Date Immunization Notes Care Provider Maegan collins 07-30-2002 diphtheria, tetanus toxoids and acellular pertussis vaccine Matt Sandra [employer] Work Phone: [facility] 07-30-2002 measles, mumps and rubella virus vaccine Matt Sandra [employer] GR[employer]ER[employer]PORATE INVESTIGATOR Work Phone: [facility] 07-30-2002 poliovirus vaccine, inactivated Matt Sandra [employer] Work Phone: [facility] 06-14-1997 diphtheria, tetanus toxoids and acellular pertussis vaccine Matt Sandra [employer] GR[employer]ER[employer]PORATE INVESTIGATOR Work Phone: [facility] 06-14-1997 haemophilus influenz ae type b vaccine, conjugate unspecified formulation Matt Sandra [employer] GR[employer]ER[employer]CORPORATE INVESTIGATOR Work Phone: [facility] 06-14-1997 measles, mumps and rubella virus vaccine Matt Sandra [employer] GR[employer]ER[employer]CORPORATE INVESTIGATOR Work Phone: [facility] 1996 diphtheria, tetanus toxoids and acellular pertussis vaccine Matt Sandra [employer] GR[employer]ER[employer]CORPORATE INVESTIGATOR Work Phone: [facility] 1996 haemophilus influenz ae type b vaccine, conjugate unspecified formulation Matt Sandra [employer] GR[employer]ER[employer]PORATE INVESTIGATOR Work Phone: [facility] 1996 hepatitis B vaccine, adult dosage Matt Sandra ICE GRINDER[employer]CORPORATE INVESTIGATOR Work Phone: [facility] 1996 poliovirus vaccine, inactivated Matt Sandra ICE GRINDER-CORPORATE INVESTIGATOR Work Phone: [facility] 1996 diphtheria, tetanus toxoids and acellular pertussis vaccine Matt Sandra ICE GRINDER-CORPORATE INVESTIGATOR Work Phone: [facility] 1996 haemophilus influenz ae type b vaccine, conjugate unspecified formulation Matt Sandra [employer] Work Phone: [facility] 1996 poliovirus vaccine, inactivated Matt Sandra ICE GRINDER[employer]CORPORATE INVESTIGATOR Work Phone: [facility] 1996 diphtheria, tetanus toxoids and acellular pertussis vaccine Matt Sandra [employer] Work Phone: [facility] 1996 haemophilus influenz ae type b vaccine, conjugate unspecified formulation Matt Sandra [employer] Work Phone: [facility] 1996 hepatitis B vaccine, adult dosage Matt Sandra ICE GRINDER[employer]PORATE INVESTIGATOR Work Phone: [facility] 1996 poliovirus vaccine, inactivated Matt Sandra ICE GRINDER-CORPORATE INVESTIGATOR Work Phone: [facility] 1996 hepatitis B vaccine, adult dosage Matt Sandra ICE GRINDER-CORPORATE INVESTIGATOR Work Phone: [facility] Payers Date Payer Category Payer Medicaid [id number] 2022 Medicaid [id number] 2017 Unknown [id number] 1996 Unknown [id number] 2.16.84 [id number] 1996 Unknown [id number] 2.16.84 [id number] 1996 Unknown [id number] 2.16.84 0.1.002779.3.579.2.593 1996 Unknown [id number] 2.16.8 40.1.779842.3.579.2.1286 1996 Unknown [id number] 2.16.8 40.1.110615.3.579.2.1286 1996 Unknown [id number] 2.16.8 40.1.446916.3.579.2.1286 1996 Unknown [id number] 2.16.8 40.1.060973.3.579.2.1286 1996 Unknown [id number] 2.16.8 40.1.401651.3.579.2.1259 1996 Unknown [id number] 2.16.8 40.1.148838.3.579.2.1259 1996 Unknown [id number] 2.16.8 40.1.586689.3.579.2.1259 1996 Unknown [id number] 2.16.8 40.1.946385.3.579.2.1259 1996 Unknown [id number] 2.16.8 40.1.405537.3.579.2.1259 1996 Unknown [id number] 2.16.8 40.1.103321.3.579.2.1259 1996 Unknown [id number] 2.16.8 40.1.444409.3.579.2.9 1996 Unknown [id number] 2.16.84 0.1.614350.3.579.2.1259 1996 Unknown [id number] 2.16.84 0.1.202394.3.579.2.1259 1996 Unknown [id number] 2.16.84 0.1.786694.3.579.2.1259 1996 Unknown [id number] 2.16.84 0.1.128703.3.579.2.1259 1996 Unknown [id number] 2.16.84 0.1.508795.3.579.2.1259 1959 Unknown [id number] Social History Date Type Detail Facility Start: 07-04-2023 End: 07-03-2024 Tobacco smoking status NHIS Never smoked tobacco (finding) [facility] Start: 1995 Sex Assigned At Female F [facility] Start: 07-04-2023 End: 01-03-2024 Tobacco use and exposure Smokeless tobacco non-user [facility] Start: 12-05-2023 End: 07-10-2025 Alcoholic beverage intake Lifetime non-drinker (finding) [facility] Start: 12-05-2023 End: 12-11-2024 History of Social function [facility] Start: 12-05-2023 End: 12-11-2024 Tobacco use panel [facility] Start: 1995 Sex assigned at Not on file P [facility] Start: 01-03-2024 End: 03-12-2024 Alcohol intake Current non-drinker of alcohol (finding) [facility] Do you belong to any clubs or organizations such as shinto groups, unions, fraternal or athletic groups, or school groups? No [facility] Are you now , , , , never or living with a partner? Never [facility] How often to you hav e a drink containing alcohol? Monthly or less [facility] How many standard dr inks containing alcohol do you have on a typical day? 1 or 2 [facility] How often do you hav e 6 or more drinks on 1 occasion? Less than monthly [facility] How hard is it for y ou to pay for the very basics like food, housing, medical care, and heating Somewhat hard [facility] Adolescent depressio n screening assessment 5 [facility] Do you feel stress - tense, restless, nervous, or anxious, or unable to sleep at night because your mind is troubled all the time - these days [OSQ] Rather much [facility] Start: 10-19-2019 Education 12 [facility] Start: 12-02-2024 [facility] Clinical Notes 01-03-2024 to 07-10-2025 Jo Ann Patino NP - 07/10/2025 2:10 PM DAVID Kaur - 06/26/2025 1:30 PM PRIYANKTAudrey Weir LPN - 06/11/2025 2:00 PM DAVID Kaur - 05/29/2025 1:20 PM DAVID Kaur - 05/02/2025 8:50 AM EDT Note Date & Type Note Facility 07-10-2025 History of Presen t illness Narrative Reason for Appointment: Patient ID: Tara Bruno is a 30 y.o. female who presents for Routine Visit Patient presents today for Return OB appointment. MEDICATIONS Current Outpatient Medications Medication Instructions Ciclopirox 1 % shampoo wash affected area on the trunk in the shower DAILY until clear, let sit 3-5 MINUTES then rinse off esomeprazole (NEXIUM) 40 mg, [...] Vitals: Estimated body mass index is 34.9 kg/m as calculated from the following: Height as of 11/30/22: 5' 3 . Weight as of this encounter: 197 lb. BP: 122/74 Patient's last menstrual period was 11/18/2024. ASSESSMENT & PLAN ICD-10-CM 1. Third trimester ([facility]) Z34.93 POCT urinalysis dipstick manually resulted 2. 33 weeks gestation of ([facility]) Z3A.33 Return OB: Patient presents today for [...] routine OB appointment. Ultrasound today with EFW 2812 grams >97% will repeat ultrasound in 3 weeks and will begin NST/ BPP once weekly. Documented by Jo Ann Patino NP on behalf of: Chelsae Lopez DO documented in this encounter [facility] 06-26-2025 History of Presen t illness Narrative Reason for Appointment: Patient ID: Tara Bruno is a 30 y.o. female who presents for Routine Visit Patient presents today for Return OB appointment. MEDICATIONS Current Outpatient Medications Medication Instructions Ciclopirox 1 % shampoo wash affected area on the trunk in the shower DAILY until clear, let sit 3-5 MINUTES then rinse off esomeprazole (NEXIUM) 40 mg, [...] reviewed. Vitals: Estimated body mass index is 34.28 kg/m as calculated from the following: Height as of 11/30/22: 5' 3 . Weight as of this encounter: 193 lb 8 oz. BP: 116/60 Patient's last menstrual period was 11/18/2024. ASSESSMENT & PLAN ICD-10-CM 1. Third trimester ([facility]) Z34.93 POCT urinalysis dipstick manually resulted 2. 31 weeks gestation of ([facility]) Z3A.31 Return OB: Patient presents today for a routine obstetrics appointment. Patient is currently 32w1d . Patient states she is doing well but has complaints of being tired due to current . Patient has verbalizes frequent movement. labor precautions was discussed/given and patient was instructed to perform kick counts three times a day. Orders Placed This Encounter Procedures POCT urinalysis dipstick manually resulted Follow Up: Patient is to return to office in 2 week for routine OB appointment. Documented by DAVID Reid on behalf of: DAVID Reid documented in this encounter [facility] 06-11-2025 History of Presen t illness Narrative Reason for Appointment: Patient ID: Tara Bruno is a 30 y.o. female who presents for Routine Visit Patient presents today for Return OB appointment. MEDICATIONS Current Outpatient Medications Medication Instructions Ciclopirox 1 % shampoo wash affected area on the trunk in the shower DAILY until clear, let sit 3-5 MINUTES then rinse off esomeprazole (NEXIUM) 40 mg, [...] Exam Constitutional: Appearance: Normal appearance. She is well-developed. Cardiovascular: Rate and Rhythm: Normal rate and regular rhythm. Pulmonary: Effort: Pulmonary effort is normal. Breath sounds: Normal breath sounds. Abdominal: General: Bowel sounds are normal. There is no distension. Palpations: Abdomen is soft. Tenderness: There is no abdominal tenderness. There is no guarding or rebound. Musculoskeletal: General: No swelling. Normal range of motion. Right lower leg: No edema. Left lower leg: No edema. Neurological: Mental Status: She is alert and oriented to person, place, and time. Skin: General: Skin is warm and dry. Psychiatric: Mood and Affect: Mood normal. Behavior: Behavior normal. Vitals and nursing note reviewed. Exam conducted with a sewer contractor present. Vitals: Estimated body mass index is 34.06 kg/m as calculated from the following: Height as of 11/30/22: 5' 3 . Weight as of this encounter: 192 lb 4 oz. BP: 122/68 Patient's last menstrual period was 11/18/2024. ASSESSMENT & PLAN ICD-10-CM 1. Third trimester ([facility]) Z34.93 POCT urinalysis dipstick manually resulted 2. 29 weeks gestation of ([facility]) Z3A.29 3. Anemia affecting in third trimester ([facility]) O99.013 iron polysaccharides (ProFe) 391.3 (180 Fe) MG capsule 4. Excessive growth affecting management of , antepartum, single or unspecified fetus ([facility]) O36.60X0 Return OB: Patient presents today for a routine obstetrics appointment. Patient is currently 29w2d . Patient states she is doing well but has complaints of being tired due to current . Patient has verbalizes frequent movement. labor precautions was discussed/given and patient was instructed to perform kick counts three times a day. Pro fe faxed to pharmacy. Pt baby measuring LGA- repeat growth in 4 weeks. Orders Placed This Encounter Procedures POCT urinalysis dipstick manually resulted Follow Up: Patient is to return to office in 2 week for routine OB appointment. Documented by Audrey Weir LPN on behalf of: Chelsea Lopez DO documented in this encounter [facility] 05-29-2025 History of Presen t illness Narrative Reason for Appointment: Patient ID: Tara Bruno is a 30 y.o. female who presents for Routine Visit Patient presents today for Return OB appointment. MEDICATIONS Current Outpatient Medications Medication Instructions Ciclopirox 1 % shampoo wash affected area on the trunk in the shower DAILY until clear, let sit 3-5 MINUTES then rinse off esomeprazole (NEXIUM) 40 mg, [...] reviewed. Vitals: Estimated body mass index is 33.66 kg/m as calculated from the following: Height as of 11/30/22: 5' 3 . Weight as of this encounter: 190 lb. BP: 110/70 Patient's last menstrual period was 11/18/2024. ASSESSMENT & PLAN ICD-10-CM 1. Second trimester ([facility]) Z34.92 POCT urinalysis dipstick manually resulted 2. 27 weeks gestation of ([facility]) Z3A.27 Return OB: Patient presents today for a routine obstetrics appointment. Patient is currently 27w3d . Patient states she is doing well but has complaints of being tired due to current . Patient has verbalizes frequent movement. labor precautions was discussed/given and patient was instructed to perform kick counts three times a day. Orders Placed This Encounter Procedures POCT urinalysis dipstick manually resulted Follow Up: Patient is to return to office in 3 week for routine OB appointment. Documented by Zulma Phelps MA on behalf of: DAVID Reid documented in this encounter [facility] 05-02-2025 History of Presen t illness Narrative Reason for Appointment: Patient ID: Tara Bruno is a 30 y.o. female who presents for Routine Visit Patient presents today for Return OB appointment. MEDICATIONS Current Outpatient Medications Medication Instructions Ciclopirox 1 % shampoo wash affected area on the trunk in the shower DAILY until clear, let sit 3-5 MINUTES then rinse off esomeprazole (NEXIUM) 40 mg, [...] reviewed. Vitals: Estimated body mass index is 32.42 kg/m as calculated from the following: Height as of 11/30/22: 5' 3 . Weight as of this encounter: 183 lb. BP: 102/64 Patient's last menstrual period was 11/18/2024. ASSESSMENT & PLAN ICD-10-CM 1. Diabetes mellitus screening Z13.1 CBC Glucose tolerance, 1 hour CBC Glucose tolerance, 1 hour 2. Second trimester ([facility]) Z34.92 POCT urinalysis dipstick manually resulted 3. 23 weeks gestation of ([facility]) Z3A.23 Return OB: Patient presents today for a routine obstetrics appointment. Patient is currently 23w4d . Patient states she is doing well but has complaints of being tired due to current . Patient has verbalizes frequent movement. Orders Placed This Encounter Procedures CBC Glucose tolerance, 1 hour POCT urinalysis dipstick manually resulted Follow Up: Patient is to return to office in 4 week for routine OB appointment. Documented by DAVID Reid on behalf of: Chelsea Lopez DO documented in this encounter [facility] 04-03-2025 History of Presen t illness Narrative Reason for Appointment: Patient ID: Tara Bruno is a 30 y.o. female who presents for Routine Visit Patient presents today for Return OB appointment. And cultures MEDICATIONS Current Outpatient Medications Medication Instructions Ciclopirox 1 % shampoo wash affected area on the trunk in the shower DAILY until clear, let sit 3-5 MINUTES then rinse off esomeprazole (NEXIUM) 40 mg, [...] Vitals: Estimated body mass index is 29.94 kg/m as calculated from the following: Height as [...] of: DAVID Reid documented in this encounter [facility] 02-26-2025 History of Presen t illness Narrative Reason for Appointment: Patient ID: Tara Bruno is a 30 y.o. female who presents for Routine Visit Patient presents today for Return OB appointment. MEDICATIONS Current Outpatient Medications Medication Instructions Ciclopirox 1 % shampoo wash affected area on the trunk in the shower DAILY until clear, let sit 3-5 MINUTES then rinse off esomeprazole (NEXIUM) 40 mg, [...] Exam Constitutional: Appearance: Normal appearance. She is well-developed. Cardiovascular: Rate and Rhythm: Normal rate and regular rhythm. Pulmonary: Effort: Pulmonary effort is normal. Breath sounds: Normal breath sounds. Abdominal: General: Bowel sounds are normal. There is no distension. Palpations: Abdomen is soft. Tenderness: There is no abdominal tenderness. There is no guarding or rebound. Musculoskeletal: General: No swelling. Normal range of motion. Right lower leg: No edema. Left lower leg: No edema. Neurological: Mental Status: She is alert and oriented to person, place, and time. Skin: General: Skin is warm and dry. Psychiatric: Mood and Affect: Mood normal. Behavior: Behavior normal. Vitals and nursing note reviewed. Exam conducted with a sewer contractor present. Vitals: Estimated body mass index is 29.94 kg/m as calculated from the following: Height as of 11/30/22: 5' 3 . Weight as of this encounter: 169 lb. BP: 110/76 Patient's last menstrual period was 11/18/2024. ASSESSMENT & PLAN ICD-10-CM 1. Second trimester Z34.92 2. 12 weeks gestation of Z3A.12 POCT urinalysis dipstick manually resulted New OB: Patient presents today for 1st time obstetrics appointment with provider. Patient is currently 14w2d . Patients history has been reviewed in great detail including any potential risks. Patient stated she currently has no complaints. Expectations throughout regarding labs, ultrasounds, and appointments have been discussed with the patient in detail. It was reiterated that the patient is to drink 6-8 glasses of water a day, eat 6 small meals a day, do not consume raw or undercooked meat, and stay away from [facility]. Patient has been consulted regarding any further do's and don'ts of . Patient voiced understanding and all questions and concerns were answered. Orders Placed This Encounter Procedures POCT urinalysis dipstick manually resulted Follow Up: Patient is to return in 4 weeks for routine OB appointment. Documented by Audrey Weir LPN on behalf of: Chelsea Lopez DO documented in this encounter [facility] 12-11-2024 History of Presen t illness Narrative Reason for Appointment: Patient ID: Tara Bruno is a 29 y.o. female who presents for Gynecologic Exam Patient presents today for Annual Exam. MEDICATIONS Current Outpatient Medications Medication Instructions FLUoxetine (PROZAC) 10 mg, Oral, Nightly propylene glycol liquid external solution ALLERGIES Allergies Allergen Reactions Cephalexin Anaphylaxis and [...] Gastrointestinal: Negative. Genitourinary: Negative. Musculoskeletal: Negative. Skin: Positive for color change and rash. Neurological: Negative. All other systems reviewed and are negative. Hematological: Negative. Endocrine: Negative. Allergic/Immunologic: Negative. OBJECTIVE Objective: Physical Exam Constitutional: Appearance: Normal appearance. She is well-developed. Genitourinary: Vulva normal. Breasts: Breasts are soft. Right: Normal. Left: Normal. Cardiovascular: Rate and Rhythm: Normal rate and regular rhythm. Pulmonary: Effort: Pulmonary effort is normal. Breath sounds: Normal breath sounds. Abdominal: General: Bowel sounds are normal. There is no distension. Palpations: Abdomen is soft. Tenderness: There is no abdominal tenderness. There is no guarding or rebound. Musculoskeletal: General: No swelling. Normal range of motion. Right lower leg: No edema. Left lower leg: No edema. Neurological: Mental Status: She is alert and oriented to person, place, and time. Skin: General: Skin is warm and dry. Psychiatric: Mood and Affect: Mood normal. Behavior: Behavior normal. Vitals and nursing note reviewed. Exam conducted with a sewer contractor present. Vitals: Estimated body mass index is 29.05 kg/m as calculated from the following: Height as of 11/30/22: 5' 3 . Weight as of this encounter: 164 lb. BP: 114/68 Patient's last menstrual period was 11/22/2024 (exact date). ASSESSMENT & PLAN ICD-10-CM 1. Well woman exam with routine gynecological exam Z01.419 Pap Smear Annual Exam: Patient presents today for an annual exam. Patient states she is doing well and has complaints of an unknown rash. Pap was obtained without difficulty. No orders of the defined types were placed in this encounter. Follow Up: Patient is to return in one year for annual unless needed otherwise. Documented by Audrey Weir LPN on behalf of: Chelsea Lopez DO documented in this encounter [facility] 04-02-2024 Evaluation note Authored July 03, 2024 3:25pm 29-year-old female referred to the GI clinic for evaluation of upper abdominal pain. +upper abdominal pain that has resolved few months ago. She states that she still gets intermittent abdominal discomfort but less severe than how it was Will check CBC, LFTs and Lipase Will arrange US of the upper abdomen [facility] Work Phone: [phone] 891-896404-29-2024 History of Present illness Narrative* Matt Sandra, KIM-CORPORATE INVESTIGATOR - 03/12/2024 11:20 AM EDT Images from the original note were not included. [address] [place] [id number] SUBJECTIVE: Patient ID: Tara Bruno is a 29 y.o. female. Chief Complaint [...] Performed by Sarabjit Odom MD at [facility] TONSILLECTOMY WISDOM TOOTH EXTRACTION Past Medical History: [...] JAY Knight 03/12/24 1305 [facility] Miscellaneous Notes* Telephone Encounter - Mikala Murphy CMA - 02/09/2024 9:06 AM EDT Pt called and was in to see you yesterday 02/07 and is stuffed up today and coughing up yellow. Could you send in something to her local pharmacy? * Telephone Encounter - JAY Knight - 02/09/2024 9:06 AM EDT Zpak sent to [facility]. Please remind her to do security monitor as ordered by Melinda. * Telephone Encounter - Mikala Murphy CMA - 02/09/2024 9:06 AM EDT I called and read your note. Pt will get scheduled after this illness documented in [facility] encounter[facility] Telephone encounter Note* Telephone Encounter - Mikala Murphy CMA - 02/09/2024 9:06 AM EDT Pt called and was in to see you yesterday 02/07 and is stuffed up today and coughing up yellow. Could you send in something to her local pharmacy? [facility] Telephone encounter Note* Telephone Encounter - JAY Knight - 02/09/2024 9:06 AM EDT Zpak sent to [facility]. Please remind her to do security monitor as ordered by Melinda. [facility]03-28-[facility]24 Telephone encounter Note* Telephone Encounter - Mikala Murphy CMA - 02/09/2024 9:06 AM EDT I called and read your note. Pt will get scheduled after this illness [facility]03-[facility] History of Present illness Narrative* JAY Little - 02/08/2024 11:40 AM EDT [place] [address] Patient: Tara Bruno Date of : 1995 [...] 10/12/2017 Performed by Sarabjit Odom MD at [facility] TONSILLECTOMY WISDOM TOOTH EXTRACTION Current Outpatient [...] LITTLE APRN-CNP 02/08/24 1255 documented in this encounterUniversity [facility]02-[facility] History of Present illness Narrative* JAY Knight - 01/03/2024 10:15 AM EST Images from the original note were not included. [address] [facility] [id number] SUBJECTIVE: Patient ID: Tara Bruno is a 28 y.o. female. Chief Complaint Patient presents with Anxiety Tara presents today wishing to restart medication for her moods. She does feel she ideally depressed. Her concern is anxiety, irritability, and feels short tempered. Is managing deal of personal stressors. Custody issues with her children's father who lives out of state. Has graduated from [employer]. 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 Depression [...] Performed by Sarabjit Odom MD at [facility] TONSILLECTOMY WISDOM TOOTH EXTRACTION Past Medical History: [...] JAY Knight 01/03/24 1047 [facility]* Diagnosis Well woman exam with routine gynecological exam Routine gynecological examination documented in this encounter [facility]* Diagnosis Anxiety and depression- Primary [facility]* Diagnosis Acute bacterial sinusitis- Primary Acute sinusitis, unspecified [facility]* Diagnosis Viral upper respiratory tract infection- Primary Acute upper respiratory infections of unspecified site Chills Chills (without fever) Epigastric pain Abdominal pain, epigastric Syncope and collapse Gastroesophageal reflux disease, unspecified whether esophagitis present [facility]* Diagnosis Anxiety and depression- Primary Nausea Nausea alone Syncope, unspecified syncope type [facility]* Diagnosis Second trimester state, incidental 12 weeks gestation of documented in this encounter [facility]* Diagnosis Second trimester state, incidental 18 weeks gestation of Screening, , for anatomic survey Encounter for anatomic survey Screening examination for STI Need for maternal serum alpha-protein (MSAFP) screening documented in this encounter [facility]* Diagnosis Diabetes mellitus screening Screening for diabetes mellitus Second trimester ([facility]) state, incidental 23 weeks gestation of ([facility]) documented in this encounter [facility]* Diagnosis Size of fetus inconsistent with dates in second trimester ([facility])- Primary Second trimester ([facility]-H[facility]) state, incidental 27 weeks gestation of ([facility]) documented [facility] encounter [facility]* Diagnosis Third trimester ([facility]) state, incidental 29 weeks gestation of ([facility]) Anemia affecting in third trimester ([facility]) Excessive growth affecting management of , antepartum, single or unspecified fetus ([facility]) documented in [facility] encounter [facility]* Diagnosis Third trimester ([facility]) state, incidental 31 weeks gestation of ([facility]) documented in [facility] encounter [facility]* Diagnosis Excessive growth affecting management of in third trimester, single or unspecified fetus ([facility]-HCC)- Primary Third trimester ([facility]-HCC) state, incidental 33 weeks gestation of ([facility]) Hematuria, unspecified type documented in this encounter [facility]* Attachments The following attachments cannot be sent through Care Everywhere. * Depression (Yemeni) documented in this encounterPro[facility] SystemInstructionsNot on file documented in this encounterPro[facility] SystemInstructions* Attachments The following attachments cannot be sent through Care Everywhere. * Acid Reflux and GERD in Adults Discharge Instructions (Yemeni) documented in this encounterPro[facility] SystemInstructions* Attachments The following attachments cannot be sent through Care Everywhere. * Nausea and Vomiting, Adult (Yemeni) documented in this encounterPro[facility] Summary Purpose Family History Relationship Condition Age [...] pital DATE CREATED AUTHOR AUTHOR'S ORGANIZ ATION 02/28/2024 [facility] DATE CREATED AUTHOR AUTHOR'S ORGANIZ ATION 03/13/2024 [facility] DATE CREATED AUTHOR AUTHOR'S ORGANIZ ATION 07/12/2025 [facility] Care Teams (unrecognized sec tion and content) Team Status: Active Member Role Status Dates [...] July 03, 2024 End: July 03, 2024 Afternoon Babysitter Relationship Specialty Start Date End Date Radha Calix PA [address] [place] [address] PCP - MANDEEP Ortiz [facility] 05/14/24 Afternoon Babysitter Relationship Specialty Start Date End Date Radha Calix PA [address] [place] [address] PCP - MANDEEP Ortiz [facility] 05/14/24 Afternoon Babysitter Relationship Specialty Start Date End Date Matt Sandra APRN-CORPORATE INVESTIGATOR [address] [place] [address] PCP - General Family Medicine 10/16/19 Afternoon Babysitter Relationship Specialty Start Date End Date Matt Sandra APRN-CORPORATE INVESTIGATOR [address] [place] [address] PCP - General Family Medicine 10/16/19 Afternoon Babysitter Relationship Specialty Start Date End Date Matt Sandra APRN-CORPORATE INVESTIGATOR [address] [place] [address] PCP - General Family Medicine 10/16/19 Afternoon Babysitter Relationship Specialty Start Date End Date Radha Calix PA PCP - [facility] 05/14/24 Afternoon Babysitter Relationship Specialty Start Date End Date Radha Calix PA PCP - [facility] 05/14/24 Afternoon Babysitter Relationship Specialty Start Date End Date Radha Calix PA PCP - [facility] 05/14/24 Afternoon Babysitter Relationship Specialty Start Date End Date Radha Calix PA PCP - [facility] 05/14/24 Afternoon Babysitter Relationship Specialty Start Date End Date Radha Calix PA PCP - [facility] 05/14/24 Afternoon Babysitter Relationship Specialty Start Date End Date Radha Calix PA PCP [facility] 05/14/24 Afternoon Babysitter Relationship Specialty Start Date End Date Radha Calix PA PCP - [facility] 05/14/24 Afternoon Babysitter Relationship Specialty Start Date End Date Radha Calix PA PCP [facility] 05/14/24 Afternoon Babysitter Relationship Specialty Start Date End Date Radha Calix PA PCP [facility] 05/14/24 Afternoon Babysitter Relationship Specialty Start Date End Date Radha Calix PA PCP - [facility] 05/14/24 Goals (unrecognized section and content) Goals may be documented in a n alternate sectionNot on filedocumented as of this encounterNot on filedocumented as of this encounterNot on filedocumented as of this encounterNot on filedocumented as of this encounter Reason for Visit (unrecogniz ed section and content) Reason Comments Gynecologic Exam Reason Comments Anxiety Reason Comments Cough Cough,body aches, he adache Reason Comments Follow-up Nausea in the cristina g times 3 days Reason Comments Routine Visit FOR RECORDS PERTAINING TO PATIENTS WHO ARE [...] BE BASED ON THE PRIMARY CLINICAL RECORDS. [employer] [facility]. provides no warranty or guarantee of the accuracy or completeness of information in this document.
== END 2025-07-17 16:09 | disposition home or self-care (01) ==
LOC: US 14:59 → FBC 15:01
PROVIDERS: PCP Nurse Practitioner; Visit Provider Nurse Practitioner Family
DX: O36.63X0 Maternal care for excessive fetal growth, third trimester, not applicable or unspecified (principal)
CPT/HCPCS: 76818

== ENCOUNTER 2025-07-20 10:09 | Outpatient (OUT) | payer MEDICAID, SELFPAY ==
--- OUTSIDE RECORDS SUMMARY | 2025-07-20 10:12 | XMS_ITS | CCD ---
Author Organization [facility] Care Team Providers Care Oyster Unloader Name Role Phone JOHN, DR TRAN Admitting [...] J Primary Care Unavailable Radha Dickerson Unavailable Sandra BILLET ASSEMBLER-INSIDE SALES ENGINEER, Matt J Primary Care Provid er Radha Dickerson Unavailable CHELSEA LOPEZ Attending Unavailable CHELSEA LOPEZ Attending Unavailable JOSI DUENAS Attending Unavailable JOHNCHELSEA Alcazar Attending Unavailable JOSI DUENAS Attending Unavailable JOHNCHELSEA Alcazar Attending Unavailable JOSI DUENAS Attending Unavailable CHELSEA LOPEZ Referring Unavailable CHELSEA LOPEZ Attending Unavailable Allergies Allergy Classification Reported Allergen(s) Allergy Type Date of Onset Reaction(s) Facility (1 source) Cephalexin Drug Allergy 2 [facility] Repository (20 sources) Cephalexin; Translations: [CEPHALEXIN] Drug [...] OB BPP W NON-STRESS on 07-17-2025 [place] [address] Ultrasound Report Signed Patient: TARA BRUNO MR#: [id number] : 1995 Acct:[id number] Age/Sex: 30 / F ADM Date: 07/17/25 Loc: [facility] 251-[address]: Jo Ann Patino Ordering Physician: Jo Ann Patino Date of Service: 07/17/25 Procedure(s): US OB BPP w non-stress Accession Number(s): [id number] cc: MATT SANDRA ; Jo Ann Patino The [place] [address] Patient Name: TARA BRUNO MRN: [facility]:[id number] date: 1995 Sex: F Assigned Patient Location: [facility] Current Patient Location: [facility] Accession/Order Number: [id number] Exam Date: 07/17/2025 15:03 Report Date: 07/17/2025 15:34 At the request of: JO ANN PATINO Procedure: US OB BPP w non-stress Biophysical profile. Reason for exam: Excessive growth COMPARISON: None TECHNIQUE: Transabdominal imaging of the gravid uterus was obtained. FINDINGS: The gun club manager reports a BPP of 8 out of 8. BENNETT is normal at 15.6 cm. heart rate 145 bpm. US/US OB BPP w non-stress IMPRESSION: BPP 8 out of 8. Impression dictated by: Aaron Acevedo Jr., D.O. 07/17/2025 3:34 PM Dictation Location: [place] [address] Electronically authenticated by: [id number] Y Date: 07/17/2025 15:34 Dictated By: Aaron Acevedo M.D. Signed By: 07/17/25 1537 DD/ 1534 TD/TT: Elementary School Teacher: [facility] Radiology, Radiologist, - 07/17/2025 [place] [address] Ultrasound Report Signed Patient: TARA BRUNO MR#: [id number] : 1995 Acct:[id number] Age/Sex: 30 / F ADM Date: 07/17/25 Loc: [facility] 251-[address]: Jo Ann Patino Ordering Physician: Jo Ann Patino Date of Service: 07/17/25 Procedure(s): US OB BPP w non-stress Accession Number(s): [id number] cc: MATT SANDRA ; Jo Ann Patino [place] [address] Patient Name: TARA BRUNO MRN: [id number] date: 1995 Sex: F Assigned Patient Location: [facility] Current Patient Location: [facility] Accession/Order Number: [id number] Exam Date: 07/17/2025 15:03 Report Date: 07/17/2025 15:34 At the request of: JO ANN PATINO Procedure: US OB BPP w non-stress Biophysical profile. Reason for exam: Excessive growth COMPARISON: None TECHNIQUE: Transabdominal imaging of the gravid uterus was obtained. FINDINGS: The gun club manager reports a BPP of 8 out of 8. BENNETT is normal at 15.6 cm. heart rate 145 bpm. US/US OB BPP w non-stress IMPRESSION: BPP 8 out of 8. Impression dictated by: Aaron Acevedo Jr., D.O. 07/17/2025 3:34 PM Dictation Location: [place] [address] Electronically authenticated by: [id number] Y Date: 07/17/2025 15:34 Dictated By: Aaron Acevedo M.D. Signed By: 07/17/25 1537 DD/ 1534 TD/TT: Elementary School Teacher: [facility] [employer] Radiology Study observation (narrative) [facility] US OB BPP W NON-STRESS Ordered By: Radiologist Radiology on 07-17-2025 [facility] [employer] Work Phone: US OB FOLLOW UP TRANSABDOMIN [...] UA Negative Negative - 4(70) +++ mg/dL [facility] Blood, UA Positive Negative - 50 Abhi/mcL [facility] Clarity, UA Clear [facility] Color, UA Yellow [facility] Glucose, UA Negative Negative - 1999(110) ++++ mg/dL [facility] Interpretation and review of laboratory results Abnormal [facility] Ketones, UA Negative Negative - 160(16) ++++ mg/dL [facility] Leukocytes, UA Negative Negative - 500+++ Pura/mcL [facility] Nitrite, UA Negative Negative - Positive [facility] pH, UA 7 5 - 9 [facility] Protein, UA Negative Negative - 1999(20) ++++ mg/dL [facility] Spec Grav, UA 1.005 1 - 1.03 [facility] Urobilinogen, UA 1.0 0.2 - 12 mg/dL [facility] Urinalysis macro (dipstick) panel (U)on 06-26-2025 Bilirubin, UA Negative Negative - 4(70) +++ mg/dL [facility] Blood, UA Positive Negative - 50 Abhi/mcL [facility] Comment on above: Trace Clarity, UA Clear [facility] Color, UA Yellow [facility] Glucose, UA Negative Negative - 2000(110) ++++ mg/dL [facility] Interpretation and review of laboratory results Abnormal [facility] Ketones, UA Positive Negative - 160(16) ++++ mg/dL [facility] Comment on above: Trace Leukocytes, UA Negative Negative - 500+++ Pura/mcL [facility] Nitrite, UA Negative Negative - Positive [facility] pH, UA 6 5 - 9 [facility] Protein, UA Trace Negative - 2000(20) ++++ mg/dL [facility] Spec Grav, UA 1.02 1 - 1.03 [facility] Urobilinogen, UA 0.2 0.2 - 12 mg/dL [facility] US OB FOLLOW UP TRANSABDOMIN AL APPROACHon [...] II, MD, PHD at 12-Jun-2025 07:34:42 AM [facility] [place] Normal Not Available Comment on above: Order Comment: US OB SCAN FOR GROWTH Estimated Date of Delivery: 08/25/25 Gestational Age as of 05/29/2025: 27w3d Urinalysis macro (dipstick) panel (U)on 06-11-2025 Bilirubin, UA Negative Negative - 4(70) +++ mg/dL [facility] Blood, UA Positive Negative - 50 Abhi/mcL [facility] Comment on above: Trace Clarity, UA Clear [facility] Color, UA Yellow [facility] Glucose, UA Negative Negative - 2000(110) ++++ mg/dL [facility] Interpretation and review of laboratory results Abnormal [facility] Ketones, UA Positive Negative - 160(16) ++++ mg/dL [facility] Comment on above: Trace Leukocytes, UA Negative Negative - 500+++ Pura/mcL [facility] Nitrite, UA Negative Negative - Positive [facility] pH, UA 6 5 - 9 [facility] Protein, UA Negative Negative - 2000(20) ++++ mg/dL [facility] Spec Grav, UA 1.015 1 - 1.03 [facility] Urobilinogen, UA 0.2 0.2 - 12 mg/dL [facility] ALL CBC WITH AUTO DIFFon BASOPHILS ABSOLUTE AUTO 0 N [facility] Basophils/100 WBC (Bld) 0.2 % 0.2 - 2.0 % [facility] Eosinophils/100 WBC (Bld) 0.9 % 0.9 - 7.0 % [facility] Erythrocyte distribution width (RBC) [Ratio] 13 % 11.0 - 15.0 % [facility] Hematocrit (Bld) [Volume fraction] 30.1 % Low 36.0 - 48.0 % [facility] Hemoglobin (Bld) [Mass/Vol] 10 g/dL Low 12.0 - 16.0 g/dL [facility] IMMATURE GRANULOCYTES ABS AUTO 0.17 High [facility] Immature granulocytes/100 WBC (Bld) 1.7 % High 0.0 - 0.5 % [facility] Interpretation and review of laboratory results Abnormal [facility] LYMPHOCYTES ABSOLUTE AUTO 1.5 [facility] Lymphocytes/100 WBC (Bld) 15.2 % Low 20.5 - 60.0 % [facility] MCH (RBC) [Entitic mass] 29.2 pg 26.7 - 34.0 pg [facility] MCHC (RBC) [Mass/Vol] 33.2 g/dL 29.9 - 35.2 g/dL [facility] MCV (RBC) [Entitic vol] 88 fL 81.0 - 99.0 fL [facility] MONOCYTES ABSOLUTE AUTO 0.5 N [facility] Monocytes/100 WBC (Bld) 5.4 % 1.7 - 12.0 % [facility] NEUTROPHILS ABSOLUTE AUTO 7.5 High [facility] Neutrophils/100 WBC (Bld) 76.6 % High 43.0 - 75.0 % [facility] Platelet mean volume (Bld) [Entitic vol] 9.1 fL Low 9.5 - 13.5 fL [facility] TBH EO # 0.1 [facility] TB PLT [address] [facility] RBC 3.42 Low [facility] WBC 9.7 [facility] Urinalysis macro (dipstick) panel (U)on 05-29-2025 Bilirubin, UA Negative Negative - 4(70) +++ mg/dL [facility] Blood, UA Positive Negative - 50 Abhi/mcL [facility] Comment on above: trace Clarity, UA Clear [facility] Color, UA Yellow [facility] Glucose, UA Positive Negative - 1999(110) ++++ mg/dL [facility] Comment on above: 100 Interpretation and review of laboratory results Abnormal [facility] Ketones, UA Negative Negative - 160(16) ++++ mg/dL [facility] Leukocytes, UA Negative Negative - 500+++ Pura/mcL [facility] Nitrite, UA Negative Negative - Positive [facility] pH, UA 6 5 - 9 [facility] Protein, UA Negative Negative - 1999(20) ++++ mg/dL [facility] Spec Grav, UA 1.01 1 - 1.03 [facility] Urobilinogen, UA 0.2 0.2 - 12 mg/dL [facility] Urinalysis macro (dipstick) panel (U)on 05-02-2025 Bilirubin, UA Negative Negative - 4(70) +++ mg/dL [facility] Blood, UA Positive Negative - 50 Abhi/mcL [facility] Comment on above: small Clarity, UA Clear [facility] Color, UA Yellow [facility] Glucose, UA Positive Negative - 1999(110) ++++ mg/dL [facility] Comment on above: 100mg/dL Interpretation and review of laboratory results Abnormal [facility] Ketones, UA Negative Negative - 160(16) ++++ mg/dL [facility] Leukocytes, UA Negative Negative - 500+++ Pura/mcL [facility] Nitrite, UA Negative Negative - Positive [facility] pH, UA 6 5 - 9 [facility] Protein, UA Positive Negative - 1999(20) ++++ mg/dL [facility] Comment on above: 30mg/dL Spec Grav, UA 1.03 1 - 1.03 [facility] Urobilinogen, UA 0.2 0.2 - 12 mg/dL [facility] No Panel InformationOrdered By: Radiologist Radiology on 04-10-2025 [facility] Work Phone: No Panel Informationon 04-10 Radiology Study observation (narrative) [facility] US OB ANATOMYon 04-10-[address] [address] Ultrasound Report Signed Patient: TARA BRUNO MR#: [id number] : 1995 Acct:[id number] Age/Sex: 30 / F ADM Date: 04/10/25 Loc: US Attending Dr: Chelsea Lopez D.O. Ordering Physician: Chelsea Lopez D.O. Date of Service: 04/10/25 Procedure(s): US OB anatomy Accession Number(s): [id number] cc: MATT SANDRA ; Chelsea Lopez D.O. [address] [address] Patient Name: TARA BRUNO MRN: [id number] date: 1995 Sex: F Assigned Patient Location: US Current Patient Location: US Accession/Order Number: [id number] Exam Date: 04/10/2025 16:00 Report Date: 04/10/2025 [...] Wynn M.D. 04/10/2025 4:04 PM Dictation Location: [place] [address] Electronically authenticated by: [id number] Y Date: 04/10/2025 16:04 Dictated By: Ashish Wynn D.O. Signed By: 04/10/25 1607 DD/ 1604 TD/TT: Elementary School Teacher: [facility] Radiology, Radiologist, MD - 04/10/2025 [place] [address] Ultrasound Report Signed Patient: TARA BRUNO MR#: [id number] : 1995 Acct:[id number] Age/Sex: 30 / F ADM Date: 04/10/25 Loc: US Attending Dr: Chelsea Lopez D.O. Ordering Physician: Chelsea Lopez D.O. Date of Service: 04/10/25 Procedure(s): US OB anatomy Accession Number(s): [id number] cc: MATT SANDRA ; Chelsea Lopez D.O. [address] [address] Patient Name: TARA BRUNO MRN: [id number] date: 1995 Sex: F Assigned Patient Location: US Current Patient Location: US Accession/Order Number: [id number] Exam Date: 04/10/2025 16:00 Report Date: 04/10/2025 [...] Wynn M.D. 04/10/2025 4:04 PM Dictation Location: [employer] Electronically authenticated by: [id number] Y Date: 04/10/2025 16:04 Dictated By: Ashish Wynn D.O. Signed By: 04/10/251606 DD/ 03 TD/TT: Elementary School Teacher: MANDEEP Jaramillo US OB CERVICAL LENGTHon 03-15 [place] [address] Ultrasound Report Signed Patient: TARA BRUNO MR#: [id number] : 1995 Acct:[id number] Age/Sex: 30 / F ADM Date: 04/10/25 Loc: US Attending Dr: Chelsea Lopez D.O. Ordering Physician: Chelsea Lopez D.O. Date of Service: 04/10/25 Procedure(s): US OB cervical length Accession Number(s): [id number] cc: MATT SANDRA ; Chelsea Lopez D.O. [place] [address] Patient Name: TARA BRUNO MRN: [facility]:[id number] date: 1995 Sex: F Assigned Patient Location: US Current Patient Location: US Accession/Order Number: [id number] Exam Date: 04/10/2025 16:04 Report Date: 04/10/2025 16:04 At the request of: CHELSEA LOPEZ DO Procedure: US OB cervical length Obstetrical ultrasound to assess for cervical length Cervical length 3.9 cm. Os closed. US/US OB cervical length IMPRESSION: Cervical length 3.9 cm. Impression dictated by: Ashish Wynn M.D. 04/10/2025 4:04 PM Dictation Location: [place] [address] Electronically authenticated by: [id number] Y Date: 04/10/2025 16:04 Dictated By: Ashish Wynn D.O. Signed By: 04/10/251606 DD/ 03 TD/TT: Elementary School Teacher: [facility] Radiology, Radiologist, - 04/10/2025 [place] [address] Ultrasound Report Signed Patient: TARA BRUNO MR#: [id number] : 1995 Acct:[id number] Age/Sex: 30 / F ADM Date: 04/10/25 Loc: US Attending Dr: Chelsea Lopez D.O. Ordering Physician: Chelsea Lopez D.O. Date of Service: 04/10/25 Procedure(s): US OB cervical length Accession Number(s): [id number] cc: MATT SANDRA ; Chelsea Lopez D.O. [place] [address] Patient Name: TARA BRUNO MRN: [id number]:[id number] date: 1995 Sex: F Assigned Patient Location: US Current Patient Location: US Accession/Order Number: [id number] Exam Date: 04/10/2025 16:04 Report Date: 04/10/2025 16:04 At the request of: CHELSEA LOPEZ DO Procedure: US OB cervical length Obstetrical ultrasound to assess for cervical length Cervical length 3.9 cm. Os closed. US/US OB cervical length IMPRESSION: Cervical length 3.9 cm. Impression dictated by: Ashish Wynn M.D. 04/10/2025 4:04 PM Dictation Location: [place] [address] Electronically authenticated by: [id number] Y Date: 04/10/2025 16:04 Dictated By: Ashish Wynn D.O. Signed By: 04/10/25 1607 DD/ 1604 TD/TT: Elementary School Teacher: [facility] Healthcare RECURRENT VAGINITIS (HTRX)on 04-04-2025 ATOPOBIUM VAGINAE [...] detected [facility] AYSHA KRUSEI 16.514 Abnormal [facility] AYSHA KRUSEI Detected Abnormal [facility] CHLAMYDIA TRACHOMATIS 0 NOM S [facility] CHLAMYDIA TRACHOMATIS Not detected N [facility] ERMB, C; MEFA 22.692 Abnormal [facility] Healthcare ERMB, C; MEFA Detected Abnormal [facility] GARDNERELLA VAGINALIS 26.666 Abnormal [facility] GARDNERELLA VAGINALIS Detected Abnormal [facility] Healthcare Interpretation and review of laboratory results Abnormal [facility] MEGASPHAERA (TYPES 1, 2) 21.837 Abnormal [facility] MEGASPHAERA (TYPES 1, 2) Detected Abnormal [facility] MYCOPLASMA GENITALIUM 0 NOM S [facility] MYCOPLASMA GENITALIUM Not detected N [facility] NEISSERIA GONORRHOEAE 0 NOM S [facility] NEISSERIA GONORRHOEAE Not detected N [facility] TET B, TET M 20.933 Abnormal [facility] TET B, TET M Detected Abnormal [facility] TRICHOMONAS VAGINALIS 0 NOM [facility] TRICHOMONAS VAGINALIS Not detected N [facility] Urinalysis macro (dipstick) panel (U)on 04-03-2025 Bilirubin, UA Negative Negative - 4(70) +++ mg/dL [facility] Blood, UA Positive Negative - 50 Abhi/mcL [facility] Comment on above: trace Clarity, UA Clear [facility] Color, UA Yellow [facility] Glucose, UA Positive Negative - 1999(110) ++++ mg/dL [facility] Comment on above: 100 Interpretation and review of laboratory results Abnormal [facility] Ketones, UA Negative Negative - 160(16) ++++ mg/dL [facility] Leukocytes, UA Positive Negative - 500+++ Pura/mcL [facility] Comment on above: small Nitrite, UA Negative Negative - Positive [facility] pH, UA 6 5 - 9 [facility] Protein, UA Trace Negative - 1999(20) ++++ mg/dL [facility] Spec Grav, UA 1.02 1 - 1.03 [facility] Urobilinogen, UA 0.2 0.2 - 12 mg/dL [facility] Urinalysis macro (dipstick) panel (U)on 02-26-2025 Bilirubin, UA Negative Negative - 4(70) +++ mg/dL [facility] Blood, UA Negative Negative - 50 Abih/mcL [facility] Clarity, UA Clear [facility] Color, UA Yellow [facility] Glucose, UA Negative Negative - 2000(110) ++++ mg/dL [facility] Interpretation and review of laboratory results Normal [facility] Ketones, UA Negative Negative - 160(16) ++++ mg/dL [facility] Leukocytes, UA Negative Negative - 500+++ Pura/mcL [facility] Nitrite, UA Negative Negative - Positive [facility] pH, UA 6 5 - 9 [facility] Protein, UA Negative Negative - 1999(20) ++++ mg/dL [facility] Spec Grav, UA 1.02 1 - 1.03 [facility] Urobilinogen, UA 0.2 0.2 - 12 mg/dL [facility] US OB TRANSVAGINALon 025 US OB TRANSVAGINAL [...] II, MD, PHD at 27-Jan-2025 07:45:14 AM [facility] Normal Not Available Comment on above: Order Comment: US OB TRANSVAGINAL No LMP recorded. IGP,APTIMA HPV,AGE GDLNon AGE GDLN ACOG TESTING Note . [facility] Comment on above: TESTS RESULT FLAG UN ITS REF RANGE LAB Clinician Provided Cytology Information Source.............Cervix;Endocervix No. of containers..01 ThinPrep Vial Age Algo ACOG Violetta... FLAG LEGEND: L-Low Normal,H-High Normal,LL-Alert Low,HH-Alert High <-Panic Low,>-Panic High,A-Abnormal,AA-Critical Abnormal Performed at: 01 =G [facility] [address] Adriana Pfeiffer MD, IGP, RFX APTIMA HPV ASCU Note . [facility] Comment on above: TESTS RESULT FLAG UN ITS REF RANGE LAB DIAGNOSIS: 02 NEGATIVE FOR INTRAEPITHELIAL LESION OR MALIGNANCY. Specimen adequacy: 02 Satisfactory for evaluation. Endocervical and/or squamous metaplastic cells (endocervical component) are present. Performed by: 02 Erin Barbosa Sales Representative Advertising ([facility]) . 02 Note: Note 02 [...] <-Panic Low,>-Panic High,A-Abnormal,AA-Critical Abnormal Performed at: [address] [address] Adriana Pfeiffer MD, Performed at: =G - [facility] [address] [id number] Creasing Machine Operator: Adriana fPeiffer MD, Phone: [phone] Performed at: - [facility] [id number] Creasing Machine Operator: Adriana Pfeiffer MD, Phone: [phone] [facility] , urineon 02-13 Beta HCG ( test) Ql (U) Negative [facility] POCT Influenza A/Influenza B /SARS-COV-2 VeritorOrdered By: Ellie Ruvalcaba on 02-08-2024 External Poct Influenza A Antigen Negative [facility] External Poct Influenza B Antigen Negative [facility] SARS-CoV-2 (COVID-19) Ag IA.rapid Ql (Resp) Negative [facility] POCT rapid strep Aon 024 Internal Pie Bottomer Check Completed and Passed Yes [facility] Interpretation and review of laboratory results Normal [facility] S. pyogenes Ag IA Ql (Unsp spec) Negative Negative [facility] US PELVIS AND TRANSVAGon US PELVIS AND [...] by: SAHARA APODACA Date: 2022-12-01 08:05 Normal [facility] US PELVIS TRANSVAGon 022 US PELVIS TRANSVAG [...] by: YAMEL GOMEZ Date: 2022-02-10 14:27 Normal [facility] Vital Signs Date Time Vital Sign Value Performing Clinician Facility 07-10-2025 14:13-0400 Body mass index (BMI) [Ratio] 34.9 kg/m2 Chelsea John DO Work Phone: [facility] 07-10-2025 14:13-0400 Body weight 89.36 kg Chelsea John DO Work Phone: [facility] 07-10-2025 14:13-0400 Diastolic blood pressure 74 mm[Hg] Chelsea John DO Work Phone: [facility] 07-10-2025 14:13-0400 Systolic blood pressure 122 mm[Hg] Chelsea John DO Work Phone: [facility] 06-26-2025 13:34-0400 Body mass index (BMI) [Ratio] 34.28 kg/m2 Josi HERNANDEZ Work Phone: [facility] 06-26-2025 13:34-0400 Body weight 87.77 kg Josi HERNANDEZ Work Phone: [facility] 06-26-2025 13:34-0400 Diastolic blood pressure 60 mm[Hg] Josi HERNANDEZ Work Phone: [facility] 06-26-2025 13:34-0400 Systolic blood pressure 116 mm[Hg] Josi HERNANDEZ Work Phone: [facility] 06-11-2025 14:47-0400 Body mass index (BMI) [Ratio] 34.06 kg/m2 Chelsea John DO Work Phone: [facility] 06-11-2025 14:47-0400 Body weight 87.2 kg Chelsea John DO Work Phone: [facility] 06-11-2025 14:47-0400 Diastolic blood pressure 68 mm[Hg] Chelsea John DO Work Phone: [facility] 06-11-2025 14:47-0400 Systolic blood pressure 122 mm[Hg] Chelsea John DO Work Phone: [facility] 05-29-2025 13:39-0400 Body mass index (BMI) [Ratio] 33.66 kg/m2 Josi Sony PA Work Phone: [facility] 05-29-2025 13:39-0400 Body weight 86.18 kg Josi Sony PA Work Phone: [facility] 05-29-2025 13:39-0400 Diastolic blood pressure 70 mm[Hg] Josi Sony PA Work Phone: [facility] 05-29-2025 13:39-0400 Systolic blood pressure 110 mm[Hg] Josi Sony PA Work Phone: [facility] 05-02-2025 09:09-0400 Body mass index (BMI) [Ratio] 32.42 kg/m2 Chelsea John DO Work Phone: [facility] 05-02-2025 09:09-0400 Body weight 83.01 kg Chelsea John DO Work Phone: [facility] 05-02-2025 09:09-0400 Diastolic blood pressure 64 mm[Hg] Chelsea John DO Work Phone: [facility] 05-02-2025 09:09-0400 Systolic blood pressure 102 mm[Hg] Chelsea John DO Work Phone: [facility] 04-03-2025 09:41-0400 Body mass index (BMI) [Ratio] 31 kg/m2 Josi Sony PA Work Phone: [facility] 04-03-2025 09:41-0400 Body weight 79.38 kg Josi Sony PA Work Phone: [facility] 04-03-2025 09:41-0400 Diastolic blood pressure 72 mm[Hg] Josi Duenas PA Work Phone: [facility] 04-03-2025 09:41-0400 Systolic blood pressure 116 mm[Hg] Josi HERNANDEZ Work Phone: [facility] 02-26-2025 09:50-0400 Body mass index (BMI) [Ratio] 29.94 kg/m2 Chelsea John DO Work Phone: [facility] 02-26-2025 09:50-0400 Body weight 76.66 kg Chelsea John DO Work Phone: [facility] 02-26-2025 09:50-0400 Diastolic blood pressure 76 mm[Hg] Chelsea John DO Work Phone: [facility] 02-26-2025 09:50-0400 Systolic blood pressure 110 mm[Hg] Chelsea John DO Work Phone: [facility] 12-11-2024 13:26-0500 Body mass index (BMI) [Ratio] 29.05 kg/m2 Chelsea John DO Work Phone: [facility] 12-11-2024 13:26-0500 Body weight 74.39 kg Chelsea John DO Work Phone: [facility] 12-11-2024 13:26-0500 Diastolic blood pressure 68 mm[Hg] Chelsea John DO Work Phone: [facility] 12-11-2024 13:26-0500 Systolic blood pressure 114 mm[Hg] Chelsea John DO Work Phone: [facility] 07-03-2024 15:11-0400 Body height 157.48 cm [facility] 07-03-2024 15:11-0400 Body mass index (BMI) [Ratio] 29.2 kg/m2 [facility] 07-03-2024 15:11-0400 Body weight 72.57 kg [facility] 03-12-2024 11:21-0400 Body height 157.5 cm Matt THOMPSON Work Phone: [facility] 03-12-2024 11:21-0400 Body mass index (BMI) [Ratio] 28.55 kg/m2 Matt Sandra APRN-YVES Work Phone: [facility] [employer] [facility] 03-12-2024 11:21-0400 Body temperature 98.1 [degF] Matt Sandra APRN-INSIDE SALES ENGINEER Work Phone: [facility] [employer] [facility] 03-12-2024 11:21-0400 Body weight 70.81 kg Matt Sandra APRN-INSIDE SALES ENGINEER Work Phone: [facility] [employer] [facility] 03-12-2024 11:21-0400 Diastolic blood pressure 68 mm[Hg] Matt Sandra APRN-YVES Work Phone: [facility] [employer] [facility] 03-12-2024 11:21-0400 Heart rate 79 /min Matt Sandra APRN-YVES Work Phone: [facility] [employer] 03-12-2024 11:21-0400 Respiratory rate 20 /min Matt Sandra APRN-YVES Work Phone: [facility] [employer] [facility] 03-12-2024 11:21-0400 SaO2% (BldA) [Mass fraction] 100 % Matt Sandra APRN-YVES Work Phone: [facility] [employer] [facility] 03-12-2024 11:21-0400 Systolic blood pressure 110 mm[Hg] Matt Sandra APRN-YVES Work Phone: [facility] [employer] [facility] 02-08-2024 11:53-0400 Body height 157.5 cm Cuco Ceron APRN-INSIDE SALES ENGINEER Work Phone: [facility] [employer] [facility] 02-08-2024 11:53-0400 Body mass index (BMI) [Ratio] 28.9 kg/m2 Cuco Ceron APRN-INSIDE SALES ENGINEER Work Phone: [facility] [employer] [facility] 02-08-2024 11:53-0400 Body temperature 98.2 [degF] Cuco Ceron APRN-INSIDE SALES ENGINEER Work Phone: [facility] 02-08-2024 11:53-0400 Body weight 71.67 kg Cuco Ceron BILLET ASSEMBLER-INSIDE SALES ENGINEER Work Phone: [facility] 02-08-2024 11:53-0400 Diastolic blood pressure 68 mm[Hg] Cuco Ceron BILLET ASSEMBLER-INSIDE SALES ENGINEER Work Phone: [facility] 02-08-2024 11:53-0400 Heart rate 97 /min Cuco Ceron BILLET ASSEMBLER-INSIDE SALES ENGINEER Work Phone: [facility] 02-08-2024 11:53-0400 Respiratory rate 18 /min Cuco Ceron BILLET ASSEMBLER-INSIDE SALES ENGINEER Work Phone: [facility] 02-08-2024 11:53-0400 SaO2% (BldA) [Mass fraction] 97 % Cuco Ceron APRN-INSIDE SALES ENGINEER Work Phone: [facility] 02-08-2024 11:53-0400 Systolic blood pressure 112 mm[Hg] Cuco Ceron APRN-INSIDE SALES ENGINEER Work Phone: [facility] 01-03-2024 10:16-0500 Body height 157.5 cm Matt Sandra APRN-INSIDE SALES ENGINEER Work Phone: [facility] 01-03-2024 10:16-0500 Body mass index (BMI) [Ratio] 29.23 kg/m2 Matt Sandra APRN-INSIDE SALES ENGINEER Work Phone: [facility] 01-03-2024 10:16-0500 Body temperature 97.3 [degF] Matt Sandra APRN-INSIDE SALES ENGINEER Work Phone: [facility] 01-03-2024 10:16-0500 Body weight 72.48 kg Matt Sandra APRN-INSIDE SALES ENGINEER Work Phone: [facility] 01-03-2024 10:16-0500 Diastolic blood pressure 58 mm[Hg] Matt Sandra APRN-INSIDE SALES ENGINEER Work Phone: [facility] 01-03-2024 10:16-0500 Heart rate 72 /min Matt Sandra APRN-INSIDE SALES ENGINEER Work Phone: [facility] [employer] [facility] 01-03-2024 10:16-0500 SaO2% (BldA) [Mass fraction] 99 % Matt Sandra APRN-INSIDE SALES ENGINEER Work Phone: [facility] [employer] [facility] 01-03-2024 10:16-0500 Systolic blood pressure 102 mm[Hg] Matt Sandra APRN-INSIDE SALES ENGINEER Work Phone: [facility] Encounters Encounter Date Encounter Type Care Provider [...] Comment on above: Third trimester preg alejandro ([facility]); 31 weeks gestation of ([facility]) Start: 06-26-2025 End: 06-26-2025 ambulatory JOSI DUENAS Not Available Start: 06-11-2025 End: 06-11-2025 ambulatory CHELSEA JOHN Not Available Start: 06-11-2025 End: 06-11-2025 Office outpatient visit 15 minutes Chelsea John DO Work Phone: [facility] Comment on above: Third trimester preg alejandro ([facility]); 29 weeks gestation of ([facility]); Anemia affecting in third trimester ([facility]); Excessive growth affecting management of , antepartum, single or unspecified fetus ([facility]) Start: 06-11-2025 End: 06-11-2025 ambulatory CHELSEA JOHN [...] incons istent with dates in second trimester ([facility]) (Primary Dx); Second trimester ([facility]); 27 weeks gestation of ([facility]) Start: 05-02-2025 End: 05-02-2025 Bamboo flowsheet Chelsea John DO Work Phone: [facility] Start: 05-02-2025 End: 05-02-2025 Bamboo flowsheet Chelsea John DO Work Phone: [facility] Start: 05-02-2025 End: 05-02-2025 ambulatory CHELSEA JOHN Not Available Start: 05-02-2025 End: 05-02-2025 Office outpatient visit 15 minutes Chelsea John DO Work Phone: [facility] Comment on above: Diabetes mellitus sc reening; Second trimester ([facility]); 23 weeks gestation of ([facility]) Start: 04-10-2025 End: 04-10-2025 Clinisync Result Encounter Chelsea John DO Work Phone: [facility] External Department Unsolicited Start: 04-10-2025 End: 04-10-2025 Clinisync Result Encounter Chelsea John DO Work Phone: [facility] External Department Unsolicited Start: 04-03-2025 End: 04-03-2025 Bamboo flowsheet Josi HERNANDEZ Work Phone: [facility] Start: 04-03-2025 End: 04-04-2025 Bamboo flowsheet Josi HERNANDEZ Work Phone: [facility] Start: 04-03-2025 End: 04-04-2025 External Result Encounter Josi HERNANDEZ Work Phone: [facility] Unsolicited Start: 04-03-2025 End: 04-03-2025 Office outpatient visit 15 minutes Josi HERNANDEZ Work Phone: [facility] Comment on above: Second trimester pre gnancy; 18 weeks gestation of ; Screening, , for anatomic survey; Screening examination for STI; Need for maternal serum alpha-protein (MSAFP) screening Start: 04-03-2025 End: 04-03-2025 ambulatory JOSI DUENAS Not Available Start: 02-26-2025 End: 02-26-2025 Bamboo flowsheet Chelsea John DO Work Phone: [facility] Start: 02-26-2025 End: 02-26-2025 Bamboo flowsheet Chelsea John DO Work Phone: [facility] Start: 02-26-2025 End: 02-26-2025 [...] Result Encounter Chelsea John DO Work Phone: [facility] External Department Unsolicited Start: 12-11-2024 End: 12-11-2024 Patient encounter procedure Chelsea John DO Work Phone: [facility] Start: 12-11-2024 End: 12-11-2024 Periodic preventive med est patient 18-39 yrs Chelsea John DO Work Phone: [facility] Comment on above: Well woman exam with routine gynecological exam Start: 12-11-2024 End: 12-11-2024 ambulatory CHELSEA JOHN Not Available Start: 07-03-2024 End: 07-03-2024 ambulatory [facility] Work Phone: Start: 07-03-2024 End: 07-03-2024 Patient encounter procedure [facility] Work Phone: Start: 04-10-2024 Non-patient / Non-visit [facility] Work Phone: Start: 03-12-2024 End: 03-12-2024 ambulatory MATT SANDRA [facility] Start: 03-12-2024 End: 03-12-2024 Office outpatient visit 15 minutes Matt Sandra BILLET ASSEMBLER-INSIDE SALES ENGINEER Work Phone: [facility] Comment on above: Anxiety and depressi on (Primary Dx); Nausea; Syncope, unspecified syncope type Start: 02-27-2024 End: 02-28-2024 ambulatory [facility] Travis burton Start: 02-09-2024 Telephone encounter Mikala sultana [facility] Start: 02-08-2024 End: 02-08-2024 ambulatory [facility] Start: 02-08-2024 End: 02-08-2024 Office outpatient visit 15 minutes [facility] Work Phone: [facility] Comment on above: Viral upper respirat ory tract infection (Primary Dx); Chills; Epigastric pain; Syncope and collapse; Gastroesophageal reflux disease, unspecified whether esophagitis present Start: 01-03-2024 End: 01-03-2024 ambulatory [facility] Start: 01-03-2024 End: 01-03-2024 [facility]-INSIDE SALES ENGINEER Work Phone: [facility] Comment on above: Anxiety and depressi on (Primary Dx) Start: 12-01-2022 End: 12-01-[address] CHELSEA LOPEZ Facility:[facility] Start: 11-30-2022 End: 12-01-[address] CHELSEA LOPEZ Facility:[facility] Start: 02-10-2022 End: 02-11-[address] CHELSEA LOPEZ Facility:[facility] Start: 07-29-2017 End: 07-29-2017 Emergency department patient visit [facility] Procedures Date Procedure Procedure Detail Performing Clinician Start: 07-17-2025 US OB BPP W NON-STRESS Jo Ann Patino PEST CONTROL SPECIALIST Work Phone: Start: 07-10-2025 Urnls dip stick/tabl [...] Phone: Start: 03-12-2024 Follow-up visit Follow-up MATT SANRDA Start: 03-12-2024 Urine test visual color cmprsn meths Mtat Sandra BILLET ASSEMBLER-INSIDE SALES ENGINEER Work Phone: Start: 03-12-2024 Adult depression scr eening assessment Matt Sandra BILLET ASSEMBLER-INSIDE SALES ENGINEER Work Phone: Start: 02-08-2024 Iaadiadoo streptococ cus group a Cuco Ceron [facility] Work Phone: Start: 02-08-2024 POCT INFLUENZA A/INF LUENZA B/SARS-COV-2 VERITOR Cuco Ceron [facility] Work Phone: Start: 02-08-2024 Adult depression scr eening assessment Cuco Ceron [facility] Work Phone: Start: 01-03-2024 Adult depression scr eening assessment Matt Sandra [facility] Work Phone: Start: 08-09-2018 Microscopic observat ion [Identifier] in Cervix by Cyto stain Matt Sandra [facility] Work Phone: Plan of Treatment Date Care Activity Detail Author Start: 12-16-2025 End: 12-16-2025 Patient encounter procedure [facility] Start: 08-05-2025 End: 08-05-2025 Patient encounter procedure 08/05/2025 10:50 AM EDT Routine [facility] [address] [place] [phone] Chelesa Lopez DO [address] [place] [address] [facility] Start: 07-31-2025 End: 07-31-2025 Professional / ancillary services management 07/31/2025 9:30 AM EDT Ancillary Procedure [facility] [address] [place] [address] [facility] Start: 07-29-2025 End: 07-29-2025 Patient encounter procedure 07/29/2025 9:20 AM EDT Routine [facility] [address] [place] [address] Josi Duenas PA [address] [place] [address] [facility] Start: 07-15-2025 Influenza vaccination [facility] Start: 07-10-2025 End: 07-10-2025 Patient encounter procedure 07/10/2025 2:10 PM EDT Routine [facility]NANDE[facility] [address] [place] [phone] Chelsea Lopez DO [address] [place] [address] [facility] Start: 07-10-2025 End: 01-10-2026 US biophysical profile w non stress test US biophysical profile w non stress test Imaging Routine Excessive growth affecting management of in third trimester, single or unspecified fetus ([facility]) Expected: 07/10/2025 (Approximate), Expires: 01/10/2026 [facility] Comment on above: Expected: 07/10/2025 (Approximate), Expires: 01/10/2026 Start: 07-10-2025 End: 11-09-2025 US for US OB follow up transabdominal approach Imaging Routine Excessive growth affecting management of in third trimester, single or unspecified fetus ([facility]) Expected: 07/10/2025, Expires: 11/09/2025 [facility] Work Phone: Comment on above: Expected: 07/10/2025 , Expires: 11/09/2025 Start: 07-10-2025 End: 07-10-2025 Professional / ancillary services management 07/10/2025 1:30 PM EDT Ancillary Procedure [facility]DE[facility] HERNANDEZ [address] [place] [phone] [facility] Start: 06-26-2025 End: 06-26-2025 Patient encounter procedure [facility] Comment on above: Arrived Start: 06-11-2025 End: 06-11-2025 Patient encounter procedure 06/11/2025 2:00 PM EDT Routine [facility] [address] [place] [phone] Chelsea Lopez DO [address] [place] [address] [facility] Start: 06-11-2025 End: 10-12-2025 US for US OB follow up transabdominal approach Imaging Routine Excessive growth affecting management of , antepartum, single or unspecified fetus ([facility]) Expected: 06/11/2025, Expires: 10/12/2025 [facility] Work Phone: Comment on above: Expected: 06/11/2025 , Expires: 10/12/2025 Start: 06-11-2025 End: 06-11-2025 Professional / ancillary services management 06/11/2025 1:30 PM EDT Ancillary Procedure [facility] [address] [place] [phone] [facility] Start: 05-29-2025 End: 09-29-2025 US for US OB follow up transabdominal approach Imaging Routine Size of fetus inconsistent with dates in second trimester ([facility]) Expected: 05/29/2025, Expires: 09/29/2025 [facility] Work Phone: Comment on above: Expected: 05/29/2025 , Expires: 09/29/2025 Start: 05-29-2025 End: 05-29-2025 Patient encounter procedure 05/29/2025 1:20 PM EDT Routine [facility] [address] [place] [phone] Josi Duenas PA [address] [place] [address] [facility] Start: 05-02-2025 End: 05-02-2026 CBC panel - Blood by Automated count CBC Lab Routine Diabetes mellitus screening Expected: 05/02/2025 (Approximate), Expires: 05/02/2026 [facility] Work Phone: Comment on above: Expected: 05/02/2025 (Approximate), Expires: 05/02/2026 Start: 05-02-2025 End: 05-02-2026 Measurement of glucose 1 hour after glucose challenge for glucose tolerance test Glucose tolerance, 1 hour Lab Routine Diabetes mellitus screening Expected: 05/02/2025 (Approximate), Expires: 05/02/2026 [facility] Comment on above: Expected: 05/02/2025 (Approximate), Expires: 05/02/2026 Start: 05-02-2025 End: 05-02-2025 Patient encounter procedure 05/02/2025 8:50 AM EDT Routine [facility] [address] [place] [phone] Chelsea Lopez, DO [address] [place] [address] [facility] Start: 04-03-2025 End: 05-04-2025 Alpha fetoprotein, maternal Alpha fetoprotein, maternal Lab Routine Need for maternal serum alpha-protein (MSAFP) screening Expected: 04/03/2025 (Approximate), Expires: 05/04/2025 [facility] Comment on above: Expected: 04/03/2025 (Approximate), Expires: 05/04/2025 Start: 04-03-2025 End: 07-04-2025 US for US OB 14+ weeks anatomy scan Imaging Routine Screening, , for anatomic survey Expected: 04/03/2025, Expires: 07/04/2025 [facility] Comment on above: Expected: 04/03/2025 , Expires: 07/04/2025 Start: 04-03-2025 End: 04-03-2025 Patient encounter procedure [facility] Comment on above: Arrived Start: 03-12-2025 Adult BMI Screening Adult BMI Screen ing [facility] Start: 03-12-2025 Depression Screening Depression Scre ening [facility] Start: 03-12-2025 Tobacco Screening Tobacco Screening [facility] Start: 02-26-2025 End: 02-26-2025 Patient encounter procedure 02/26/2025 9:50 AM EDT Routine [facility] [address] [place] [phone] Chelsea Lopez, DO [address] [place] [address] Arrived [facility] Comment on above: Arrived Start: 02-07-2025 Adult BMI Screening Adult BMI Screen ing [facility] Start: 02-07-2025 Depression Screening Depression Scre ening [facility] Start: 02-07-2025 Tobacco Screening Tobacco Screening [facility] Start: 01-03-2025 Adult BMI Follow Up Plan Adult BMI Follow Up Plan [facility] Start: 01-03-2025 Adult BMI Screening Adult BMI Screen ing [facility] Start: 01-03-2025 Depression Screening Depression Scre ening [facility] Start: 01-03-2025 Tobacco Screening Tobacco Screening [facility] Start: 12-11-2024 End: 12-11-2024 Patient encounter procedure 12/11/2024 1:20 PM EST Office Visit [facility] [address] [place] [phone] Chelsea Lopez, DO [address] [place] [address] Arrived [facility] Comment on above: Arrived Start: 07-15-2024 Influenza vaccination Influenza Vacc ine (#1) [facility] Start: 03-12-2024 End: 03-12-2024 Patient encounter procedure 03/12/2024 11:20 AM EDT [facility] [address] [place] [phone] Matt Sandra, BILLET ASSEMBLER-INSIDE SALES ENGINEER [address] [place] [phone] [facility] Start: 02-21-2024 End: 02-21-2024 Patient encounter procedure 02/21/2024 9:40 AM EDT Office Visit [facility] [address] [place] [address] Matt Sandra, BILLET ASSEMBLER-INSIDE SALES ENGINEER [address] [place] [address] [facility] Start: 02-08-2024 End: 02-07-2025 Event monitor Event monitor Cardiac Services Routine Syncope and collapse Expected: 02/08/2024, Expires: 02/07/2025 [facility] Work Phone: Comment on above: Expected: 02/08/2024 , Expires: 02/07/2025 Start: 08-09-2021 Screening for malign ant neoplasm of cervix Pap Smear [facility] Start: 02-02-2007 DTaP,Tdap and Td Vaccines (6 - Tdap) DTaP,Tdap and Td Vaccines (6 - Tdap) [facility] Bacteria identified in Urine by Culture Urine culture Microbiology Routine Hematuria, unspecified type Ordered: 07/10/2025 [facility] Comment on above: Ordered: 07/10/2025 End: 03-12-2025 Basic metabolic 2000 panel - Serum or Plasma Basic Metabolic Panel Lab Routine Nausea 1 Occurrences starting 03/12/2024 until 03/12/2025 [facility] Comment on above: 1 Occurrences starti ng 03/12/2024 until 03/12/2025 End: 03-12-2025 CBC W Auto Differential panel - Blood CBC auto differential Lab Routine Nausea 1 Occurrences starting 03/12/2024 until 03/12/2025 [facility] Work Phone: Comment on above: 1 Occurrences starti ng 03/12/2024 until 03/12/2025 CHLAMYDIA TRACHOMATI S (GENITO/STI) CHLAMYDIA TRACHOMATIS (GENITO/STI) Lab Routine Screening examination for STI Ordered: 04/03/2025 [facility] Comment on above: Ordered: 04/03/2025 Cytology Cervical or vaginal smear or scraping study Pap Smear Pathology and Cytology Routine Well woman exam with routine gynecological exam Ordered: 12/11/2024 [facility] [employer] Work Phone: Comment on above: Ordered: 12/11/2024 Hepatic function panel [facility] Neisseria gonorrhoea e DNA [Presence] in Unspecified specimen by MARION with probe detection Neisseria gonorrhea DNA probe, direct Lab Routine Screening examination for STI Ordered: 04/03/2025 [facility] Comment on above: Ordered: 04/03/2025 SURESWAB(R) ADVANCED VAGINITIS PLUS, TMA SURESWAB(R) ADVANCED VAGINITIS PLUS, TMA Pathology and Cytology Routine Screening examination for STI Ordered: 04/03/2025 [facility] [employer] Work Phone: Comment on above: Ordered: 04/03/2025 US Abdomen limited [facility] Immunizations Immunization Date Immunization Notes Care Provider Maegan collins 07-30-2002 diphtheria, tetanus toxoids and acellular pertussis vaccine Matt Sandra BILLET ASSEMBLER-[facility] Work Phone: [facility] 07-30-2002 measles, mumps and rubella virus vaccine Matt Sandra BILLET ASSEMBLER-INSIDE SALES ENGINEER Work Phone: [facility] 07-30-2002 poliovirus vaccine, inactivated Matt Sandra BILLET ASSEMBLER-[facility] Work Phone: [facility] 06-14-1997 diphtheria, tetanus toxoids and acellular pertussis vaccine Matt Sandra BILLET ASSEMBLER-INSIDE SALES ENGINEER Work Phone: [facility] 06-14-1997 haemophilus influenz ae type b vaccine, conjugate unspecified formulation Matt Sandra BILLET ASSEMBLER-INSIDE SALES ENGINEER Work Phone: [facility] 06-14-1997 measles, mumps and rubella virus vaccine Matt Sandra BILLET ASSEMBLER-INSIDE SALES ENGINEER Work Phone: [facility] 1996 diphtheria, tetanus toxoids and acellular pertussis vaccine Matt Sandra BILLET ASSEMBLER-INSIDE SALES ENGINEER Work Phone: [facility] 1996 haemophilus influenz ae type b vaccine, conjugate unspecified formulation Matt Sandra BILLET ASSEMBLER-INSIDE SALES ENGINEER Work Phone: [facility] 1996 hepatitis B vaccine, adult dosage Matt Sandra BILLET ASSEMBLER-INSIDE SALES ENGINEER Work Phone: [facility] 1996 poliovirus vaccine, inactivated Matt Sandra BILLET ASSEMBLER-INSIDE SALES ENGINEER Work Phone: [facility] 1996 diphtheria, tetanus toxoids and acellular pertussis vaccine Matt Sandra BILLET ASSEMBLER-INSIDE SALES ENGINEER Work Phone: [facility] 1996 haemophilus influenz ae type b vaccine, conjugate unspecified formulation Matt Sandra BILLET ASSEMBLER[facility] Work Phone: [facility] 1996 poliovirus vaccine, inactivated Matt Sandra BILLET ASSEMBLER-INSIDE SALES ENGINEER Work Phone: [facility] 1996 diphtheria, tetanus toxoids and acellular pertussis vaccine Matt Sandra BILLET ASSEMBLER[facility] Work Phone: [facility] 1996 haemophilus influenz ae type b vaccine, conjugate unspecified formulation Matt Sandra BILLET ASSEMBLER[facility] Work Phone: [facility] 1996 hepatitis B vaccine, adult dosage Matt Sandra BILLET ASSEMBLER-INSIDE SALES ENGINEER Work Phone: [facility] 1996 poliovirus vaccine, inactivated Matt Sandra BILLET ASSEMBLER-INSIDE SALES ENGINEER Work Phone: [facility] 1996 hepatitis B vaccine, adult dosage Matt Sandra BILLET ASSEMBLER-INSIDE SALES ENGINEER Work Phone: [facility] Payers Date Payer Category Payer Medicaid [id number] 2022 Medicaid [id number] 2017 Unknown [phone] 1996 Unknown [id number] 2.16.84 0.1.643083.3.579.2.593 1996 Unknown [id number] 2.16.84 0.1.535927.3.579.2.593 1996 Unknown [id number] 2.16.84 0.1.341265.3.579.2.593 1996 Unknown [id number] 2.16.8 40.1.614989.3.579.2.1286 1996 Unknown [id number] 2.16.8 40.1.888402.3.579.2.1286 1996 Unknown [id number] 2.16.8 40.1.686465.3.579.2.1286 1996 Unknown [id number] 2.16.8 40.1.258488.3.579.2.1286 1996 Unknown [id number] 2.16.8 40.1.270666.3.579.2.1259 1996 Unknown [id number] 2.16.8 40.1.707269.3.579.2.1259 1996 Unknown [id number] 2.16.8 40.1.826719.3.579.2.1259 1996 Unknown [id number] 2.16.8 40.1.001229.3.579.2.1259 1996 Unknown [id number] 2.16.8 40.1.731654.3.579.2.1259 1996 Unknown [id number] 2.16.8 40.1.851986.3.579.2.1259 1996 Unknown [id number] 2.16.8 40.1.811297.3.579.2.9 1996 Unknown [id number] 2.16.84 0.1.455032.3.579.2.1259 1996 Unknown [id number] 2.16.84 0.1.326358.3.579.2.1259 1996 Unknown [id number] 2.16.84 0.1.510901.3.579.2.1259 1996 Unknown [id number] 2.16.84 0.1.144282.3.579.2.1259 1996 Unknown [id number] 2.16.84 0.1.273387.3.579.2.1259 1959 Unknown [id number] Social History Date Type Detail Facility Start: 07-04-2023 End: 07-03-2024 Tobacco smoking status NHIS Never smoked tobacco (finding) [facility] Start: 1995 Sex Assigned At Female F [facility] Start: 07-04-2023 End: 01-03-2024 Tobacco use and exposure Smokeless tobacco non-user [facility] Start: 12-05-2023 End: 07-10-2025 Alcoholic beverage intake Lifetime non-drinker (finding) [facility] Start: 12-05-2023 End: 12-11-2024 History of Social function [facility] Start: 12-05-2023 End: 12-11-2024 Tobacco use panel [facility] Start: 1995 Sex assigned at Not on file P [facility] Start: 01-03-2024 End: 03-12-2024 Alcohol intake Current non-drinker of alcohol (finding) [facility] Do you belong to any clubs or organizations such as presybeterian groups, unions, fraternal or athletic groups, or school groups? No [facility] Are you now , , , , never or living with a partner? Never [facility] How often to you hav e a drink containing alcohol? Monthly or less [facility] How many standard dr inks containing alcohol do you have on a typical day? 1 or 2 [facility] How often do you hav e 6 or more drinks on 1 occasion? Less than monthly [facility] How hard is it for y ou to pay for the very basics like food, housing, medical care, and heating Somewhat hard [facility] Adolescent depressio n screening assessment 5 [facility] Do you feel stress - tense, restless, nervous, or anxious, or unable to sleep at night because your mind is troubled all the time - these days [OSQ] Rather much [facility] Start: 10-19-2019 Education 12 [facility] Start: 12-02-2024 [facility] Clinical [facility] [...] ASSESSMENT & PLAN ICD-10-CM 1. Third trimester ([facility]) Z34.93 POCT urinalysis dipstick manually resulted 2. 33 weeks gestation of ([facility]) Z3A.33 Return OB: Patient presents today [...] Jo Ann Patino NP on behalf of: Chelsea Lopez DO documented in this encounter [facility] 06-26-2025 History of Presen [...] ASSESSMENT & PLAN ICD-10-CM 1. Third trimester ([facility]) Z34.93 POCT urinalysis dipstick manually resulted 2. 31 weeks gestation of ([facility]) Z3A.31 Return OB: Patient presents today for [...] of: DAVID Reid documented in this encounter [facility] 06-11-2025 History of Presen [...] nursing note reviewed. Exam conducted with a liner assembler present. Vitals: Estimated body mass index is 34.06 kg/m as calculated from the following: Height as of 11/30/22: 5' 3 . Weight as of this encounter: 192 lb 4 oz. BP: 122/68 Patient's last menstrual period was 11/18/2024. ASSESSMENT & PLAN ICD-10-CM 1. Third trimester ([facility]) Z34.93 POCT urinalysis dipstick manually resulted 2. 29 weeks gestation of ([facility]) Z3A.29 3. Anemia affecting in third trimester ([facility]) O99.013 iron polysaccharides (ProFe) 391.3 (180 Fe) MG capsule 4. Excessive growth affecting management of , antepartum, single or unspecified fetus ([facility]) O36.60X0 Return OB: Patient presents today for [...] Chelsea Lopez DO documented in this encounter [facility] 05-29-2025 History of Presen [...] ASSESSMENT & PLAN ICD-10-CM 1. Second trimester ([facility]) Z34.92 POCT urinalysis dipstick manually resulted 2. 27 weeks gestation of ([facility]) Z3A.27 Return OB: Patient presents today for [...] of: DAVID Reid documented in this encounter [facility] 05-02-2025 History of Presen [...] Glucose tolerance, 1 hour 2. Second trimester ([facility]) Z34.92 POCT urinalysis dipstick manually resulted 3. 23 weeks gestation of ([facility]) Z3A.23 Return OB: Patient presents today for [...] Chelsea Lopez DO documented in this encounter [facility] 04-03-2025 History of Presen [...] of: DAVID Reid documented in this encounter [facility] 02-26-2025 History of Presen [...] nursing note reviewed. Exam conducted with a liner assembler present. Vitals: Estimated body mass index is [...] or undercooked meat, and stay away from [facility]. Patient has been consulted regarding any further do's and don'ts of . Patient voiced understanding and all questions and concerns were answered. Orders Placed This Encounter Procedures POCT urinalysis dipstick manually resulted Follow Up: Patient is to return in 4 weeks for routine OB appointment. Documented by Audrey Weir LPN on behalf of: Chelsea Lopez DO documented in this encounter [facility] 12-11-2024 History of Presen [...] nursing note reviewed. Exam conducted with a liner assembler present. Vitals: Estimated body mass index is [...] Chelsea Lopez DO documented in this encounter [facility] 04-02-2024 Evaluation note Authored July 03, 2024 3:25pm 29-year-old female referred to the GI clinic for evaluation of upper abdominal pain. +upper abdominal pain that has resolved few months ago. She states that she still gets intermittent abdominal discomfort but less severe than how it was Will check CBC, LFTs and Lipase Will arrange US of the upper abdomen [facility] Work Phone: 1(550) 893-846904-29-2024 History of Present illness Narrative* Matt Sanrda, KIM-INSIDE SALES ENGINEER - 03/12/2024 11:20 AM EDT Images from the original note were not included. [address] [place] [id number] SUBJECTIVE: Patient ID: Tara Bruno is a [...] 10/12/2017 Performed by Sarabjit Odom MD at [facility] TONSILLECTOMY WISDOM TOOTH EXTRACTION Past Medical History: [...] JAY Knight 03/12/24 1305 [facility] Miscellaneous Notes* Telephone Encounter - Mikala Murphy CMA - 02/09/2024 9:06 AM EDT Pt called and was in to see you yesterday 02/07 and is stuffed up today and coughing up yellow. Could you send in something to her local pharmacy? * Telephone Encounter - JAY Knight - 02/09/2024 9:06 AM EDT Zpak sent to [facility]. Please remind her to do monitoring specialist as ordered by Melinda. * Telephone Encounter - Mikala Murphy CMA - 02/09/2024 9:06 AM EDT I called and read your note. Pt will get scheduled after this illness [facility] Telephone encounter Note* Telephone Encounter - Mikala Murphy CMA - 02/09/2024 9:06 AM EDT Pt called and was in to see you yesterday 02/07 and is stuffed up today and coughing up yellow. Could you send in something to her local pharmacy? [facility] Telephone encounter Note* Telephone Encounter - JAY Knight - 02/09/2024 9:06 AM EDT Zpak sent to [facility]. Please remind her to do monitoring specialist as ordered by Melinda. [facility]-28-2024 Telephone encounter Note* Telephone Encounter - Mikala Murphy CMA - 02/09/2024 9:06 AM EDT I called and read your note. Pt will get scheduled after this illness [facility]03-27-2024 History of Present illness Narrative* JAY Little - 02/08/2024 11:40 AM ED[place] [address] Patient: Tara Bruno Date of : 1995 [...] LITTLE APRN-CNP 02/08/24 1255 [facility] History of Present illness Narrative* JAY Knight - 01/03/2024 10:15 AM EST Images from the original note were not included. [address] [facility] [address] SUBJECTIVE: Patient ID: Tara Bruno is a 28 y.o. female. Chief Complaint Patient presents with Anxiety Tara presents today wishing to restart medication for her moods. She does feel she ideally depressed. Her concern is anxiety, irritability, and feels short tempered. Is managing deal of personal stressors. Custody issues with her children's father who lives out of state. Has graduated from [employer]. 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 Depression [...] 10/12/2017 Performed by Sarabjit Odom MD at [facility] TONSILLECTOMY WISDOM TOOTH EXTRACTION Past Medical History: [...] JAY Knight 01/03/24 1047 [facility]* Diagnosis Well woman exam with routine gynecological exam Routine gynecological examination documented in this encounter [facility]* Diagnosis Anxiety and depression- Primary documented in this encounter [facility]* Diagnosis Acute bacterial sinusitis- Primary Acute sinusitis, unspecified documented in this encounter [facility]* Diagnosis Viral upper respiratory tract infection- Primary Acute upper respiratory infections of unspecified site Chills Chills (without fever) Epigastric pain Abdominal pain, epigastric Syncope and collapse Gastroesophageal reflux disease, unspecified whether esophagitis present documented in this encounter [facility]* Diagnosis Anxiety and depression- Primary Nausea Nausea alone Syncope, unspecified syncope type documented [facility] encounter [facility]* Diagnosis Second trimester state, incidental 12 weeks gestation of documented in this encounter [facility]* Diagnosis Second trimester state, incidental 18 weeks gestation of Screening, , for anatomic survey Encounter for anatomic survey Screening examination for STI Need for maternal serum alpha-protein (MSAFP) screening documented in this encounter [facility]* Diagnosis Diabetes mellitus screening Screening for diabetes mellitus Second trimester ([facility]) state, incidental 23 weeks gestation of ([facility] documented in this encounter [facility]* Diagnosis Size of fetus inconsistent [...] be sent through Care Everywhere. * Depression (Grenadian) documented in [facility] SystemInstructionsNot on file documented in this encounterK[facility] SystemInstructions* Attachments The following attachments cannot be sent through Care Everywhere. * Acid Reflux and GERD in Adults Discharge Instructions (Grenadian) documented in [facility]* Attachments The following attachments cannot be sent through Care Everywhere. * Nausea and Vomiting, Adult (Grenadian) documented [facility] Summary Purpose Family History Relationship Condition [...] CREATED AUTHOR AUTHOR'S ORGANIZ ATION 02/28/2024 [facility] DATE CREATED AUTHOR AUTHOR'S ORGANIZ ATION 03/13/2024 [facility] DATE CREATED AUTHOR AUTHOR'S ORGANIZ ATION 07/12/2025 [facility] dical Specialists [facility] Care Teams (unrecognized sec tion and [...] July 03, 2024 End: July 03, 2024 Oyster Unloader Relationship Specialty Start Date End Date Radha Calix PA [address] [place] [address] PCP - MANDEEP Ortiz [facility] 05/14/24 Oyster Unloader Relationship Specialty Start Date End Date Radha Calix PA [address] [place] [address] PCP - MANDEEP Ortiz [facility] 05/14/24 Oyster Unloader Relationship Specialty Start Date End Date Matt Sandra APRN-INSIDE SALES ENGINEER [address] [place] [address] PCP - General Family Medicine 10/16/19 Oyster Unloader Relationship Specialty Start Date End Date Matt Sandra APRN-INSIDE SALES ENGINEER [address] [place] [address] PCP - General Family Medicine 10/16/19 Oyster Unloader Relationship Specialty Start Date End Date Matt Sandra APRN-INSIDE SALES ENGINEER [address] [place] [address] PCP - General Family Medicine 10/16/19 Oyster Unloader Relationship Specialty Start Date End Date Radha Calix PA PCP - [facility] [place] [facility] 05/14/24 Oyster Unloader Relationship Specialty Start Date End Date Radha Calix PA PCP - [facility] [place] [facility] 05/14/24 Oyster Unloader Relationship Specialty Start Date End Date Radha Calix PA PCP - [facility] [place] [facility] 05/14/24 Oyster Unloader Relationship Specialty Start Date End Date Radha Calix PA PCP - [facility] [place] [facility] 05/14/24 Oyster Unloader Relationship Specialty Start Date End Date Radha Calix PA PCP - [facility] [place] [facility] 05/14/24 Oyster Unloader Relationship Specialty Start Date End Date Radha Calix PA PCP [facility] [place] [facility] 05/14/24 Oyster Unloader Relationship Specialty Start Date End Date Radha Calix PA PCP - [facility] [place] [facility] 05/14/24 Oyster Unloader Relationship Specialty Start Date End Date Radha Calix PA PCP [facility] [place] [facility] 05/14/24 Oyster Unloader Relationship Specialty Start Date End Date Radha Calix PA PCP [facility] [place] [facility] 05/14/24 Oyster Unloader Relationship Specialty Start Date End Date Radha Calix PA PCP - [facility] [place] [facility] 05/14/24 Goals (unrecognized section and content) Goals [...] BE BASED ON THE PRIMARY CLINICAL RECORDS. [employer] [facility]. provides no warranty or guarantee of the accuracy or completeness of information in this document.
[2025-07-20 10:14] VITALS: BP 125/74; PULSE 87
== END 2025-07-20 10:45 | disposition home or self-care (01) ==
LOC: FBCO 10:09 → FBC 10:11
PROVIDERS: PCP Nurse Practitioner; Visit Provider Obstetrics & Gynecology
DX: O36.63X0 Maternal care for excessive fetal growth, third trimester, not applicable or unspecified (principal)
CPT/HCPCS: 59025

== ENCOUNTER 2025-07-24 09:58 | Outpatient (OUT) | payer MEDICAID, SELFPAY ==
--- OUTSIDE RECORDS SUMMARY | 2025-07-10 13:30 | XMS_ITS | Encounter Summary ---
Author Organization [facility] Address [address] [facility] [place] [address] Care Team Providers Care Bulbs Farmworker Name Role Phone Radha Calix Unavailable [phone] Encounter Details Date Type Department Care Team (Latest Contact Info) Description 07/10/2025 1:30 PM EDT Ancillary Procedure MANDEEP HERNANDEZ [address] [place] [address] Excessive growth affecting management of , antepartum, single or unspecified fetus ([facility]) Social History Tobacco Use Types Packs/Day Years [...] Care Team (Late st Contact Info) Description 07/29/2025 9:20 AM EDT Routine [facility] Michelle HERNANDEZ [address] [place] [address] Josi Cardoza PA [address] [place], [place] [address] 07/31/2025 9:30 AM EDT Ancillary Procedure MANDEEP HERNANDEZ [address] [place] [address] 08/05/2025 10:50 AM EDT Routine [facility] [place] [facility] [address] [place] [address] [place] [address] Henok Lopez, DO [address] [facility] [place] [address] 12/16/2025 2:00 PM EST Office Visit [facility] [place] [facility] [address] [facility] [place] [address] Henok Lopez, DO [address] [facility] [place] [address] documented as of this encounter Procedures Procedure Name Priority Date/Time Associated Diagnosis Comments US OB FOLLOW UP TRANSABDOMINAL APPROACH Routine 07/10/2025 1:48 PM EDT Excessive growth affecting management of , antepartum, single or unspecified fetus ([facility]) documented in this encounter Results * US OB follow up transabdominal approach (07/10/2025 1:48 PM EDT) Anatomical Region Laterality Modality Body Ultrasound 07/11/2025 1:40 PM EDT Impressions 07/11/2025 1:57 PM EDT 1. Single, live intrauterine , current sonographic age of 36 weeks and 3 days, with an estimated date of delivery of August 04, 2025. 2. Large for gestational age size. 3. BENNETT 19.0 cm. * Estimated Weight (g) by Percentile is based upon an accurate estimated age based on last menstrual period. TRANSCRIBED BY: ELECTRONICALLY SIGNED BY: Aaron Calzada MD Narrative 07/11/2025 1:57 PM EDT FINDINGS: A single, live intrauterine is present with normal cardiac rate of 142 beats per minute. Normal activity and amniotic fluid volume. Amniotic fluid index is 19.0 cm. Morphology is grossly normal. Cervix is not seen due positioning. The current sonographic age is 36 weeks and 3 days, based on the following measurements: BPD 9.1cm ( 37 weeks, 0 days) Head Circumference 33.0cm (37 weeks,4 days) Abdominal Circumference 31.7cm (35 weeks, 4 days) Femur Length 6.9 cm (35 weeks, 4 days) Presentation Cephalic Weight (g) by Percentile greater than 97 % * These measurements result in an estimated date of delivery of August 04, 2025. The current estimated weight is 2712 grams (6 pound, 3 ounces). Comparison made with prior examination of June 11, 2025 delivery at that time was August 09, 2025, weight was also greater than 97% Procedure Note Aaron Calzada MD - 07/11/2025 FINDINGS: A single, live intrauterine is present with normal cardiacrate of 142 beats per minute. Normal activity and amniotic fluidvolume. Amniotic fluid index is 19.0 cm. Morphology is grossly normal.Cervix is not seen due positioning. The current sonographic age is36 weeks and 3 days, based on the following measurements: BPD 9.1cm ( 37 weeks, 0 days) Head Circumference 33.0cm (37 weeks,4 days) Abdominal Circumference 31.7cm (35 weeks, 4 days) Femur Length 6.9 cm (35 weeks, 4 days) Presentation Cephalic Weight (g) by Percentile greater than 97 % * These measurements result in an estimated date of delivery of 2024. The current estimated weight is 2712 grams (6 pound, 3ounces). Comparison made with prior examination of June 11, 2025 delivery at thattime was August 09, 2025, weight was also greater than 97% IMPRESSION: 1. Single, live intrauterine , current sonographic age of 36weeks and 3 days, with an estimated date of delivery of July. 2. Large for gestational age size. 3. BENNETT 19.0 cm. * Estimated Weight (g) by Percentile is based upon an accurateestimated age based on last menstrual period. TRANSCRIBED BY: ELECTRONICALLY SIGNED BY: Aaron Calzada MD us Henok John DO IMG OB US PROCEDURES Final Resul t documented in this encounter Visit Diagnoses Diagnosis Excessive growth affecting management of , antepartum, single or unspecified fetus ([facility]) documented in this encounter Care Teams Bulbs Farmworker Relationship Specialty Start Date End Date Radha Calix PA PCP - [facility] [place] BUDGET AND POLICY ANALYST 05/14/24 documented as of this encounter
--- OUTSIDE RECORDS SUMMARY | 2025-07-10 14:10 | XMS_ITS | Encounter Summary ---
Author Organization [facility] Address [address] [place] [address] Care Team Providers Care Insight Director Name Role Phone Radha Calix Unavailable [phone] Reason for Visit * Reason Comments Routine Visit Encounter Details Date Type Department Care Team ([facility] st Contact Info) Description 07/10/2025 2:10 PM EDT Routine [facility] [address] [place] [address] Henok Lopez DO [address] [place], [facility]11 Excessive growth affecting management of in third trimester, single or unspecified fetus (HHS-HCC) (Primary Dx); Third trimester (HHS-HCC); 33 weeks gestation of (HHS-HCC); Hematuria, unspecified type Social History Tobacco Use Types Packs/Day Years [...] Sign Reading Time Taken Comments Blood Pressure 122/74 07/10/2025 2:13 PM EDT Pulse - - Temperature - - Respiratory Rate - - Oxygen Saturation - - Inhaled Oxygen Concentration - - Weight 89.4 kg (197 lb) 07/10/2025 2:13 PM EDT Height - - Body Mass Index 34.9 11/30/2022 12:00 PM EST documented in this encounter Progress Notes * Jo Ann Patino NP - 07/10/2025 2:10 PM EDT Reason for Appointment: Patient ID: Tara Islas is a 30 y.o. female who presents for Routine Visit Patient presents today for Return OB appointment. MEDICATIONS Current Outpatient Medications Medication Instructions Ciclopirox 1 % shampoo wash affected area on the trunk in the shower DAILY until clear, let sit 3-5MINUTES then rinse off esomeprazole (NEXIUM) 40 mg, Daily FLUoxetine (PROZAC) 10 mg, Oral, Nightly iron polysaccharides (PROFE) 391.3 mg, Oral, Daily ondansetron ODT (ZOFRAN-ODT) 4 mg, Every 8 [...] SYSTEMS Review of Systems: Review of Systems OBJECTIVE Objective: OBGyn Exam Vitals: Estimated body mass index is 34.9 kg/m?? as calculated from the following: Height as of 1/17/23: 5' 3 . Weight as of this encounter: 197 lb. BP: 122/74 Patient's last menstrual period was 11/18/2024. ASSESSMENT & PLAN ICD-10-CM 1. Third trimester ([facility]) Z34.93 POCT urinalysis dipstick manually resulted 2. 33 weeks gestation of ([facility]) Z3A.33 Return OB: Patient presents today for a routine obstetrics appointment. Patient is currently 33w3d . Patient states she is doing well but has complaints of being tired due to current . Patient has verbalizes frequent movement. labor precautions was discussed/given and patient was instructed to perform kick counts three times a day. Orders Placed This Encounter Procedures POCT urinalysis dipstick manually resulted Follow Up: Patient is to return to office in 2 week for routine OB appointment. Ultrasound today with EFW 2812grams >97% will repeat ultrasound in 3 weeks and will begin NST/ BPP once weekly. Documented by Jo Ann Patino NP on behalf of: Henok Lopez DO documented in this encounter Plan of Treatment Upcoming Encounters Date Type Department Care Team (Late st Contact Info) Description 07/29/2025 9:20 AM EDT Routine [facility]NAN[facility] [address] [place] [place] [address] Josi Cardoza PA [address] [address] 07/31/2025 9:30 AM EDT Ancillary Procedure [facility] LO[facility]AN [address] [place] [id number] 08/05/2025 10:50 AM EDT Routine [facility] [address] [place] [address] Henok Lopez DO [address] [place] [address] 12/16/2025 2:00 PM EST Office Visit [facility] [address] [place] [address] Henok Lopez DO [address] [place] [address] Scheduled Orders Name Type Priority Associated Diagnoses Orde r Schedule US OB follow up transabdominal approach Imaging Routine Excessive growth affecting management of in third trimester, single or unspecified fetus ([facility]) Expected: 07/10/2025, Expires: 11/09/2025 Urine culture Microbiology Routine Hematuria, unspecified type Ordered: 07/10/2025 US biophysical profile w non stress test Imaging Routine Excessive growth affecting management of in third trimester, single or unspecified fetus ([facility]) Expected: 07/10/2025 (Approximate), Expires: 01/10/2026 documented as of this encounter Procedures Procedure Name Priority Date/Time Associated Diagnosis Comments POCT URINALYSIS DIPSTICK Routine 07/10/2025 2:19 PM EDT Third trimester ([facility]) documented in this encounter Results * (ABNORMAL) POCT urinalysis dipstick manually resulted (07/10/2025 2:19 PM EDT) Color, UA Yellow Clarity, UA Clear Glucose, UA Negative Negative - 2000(110) ++++ mg/dL Bilirubin, UA Negative Negative - 4(70) +++ mg/dL Ketones, UA Negative Negative - 160(16) ++++ mg/dL Spec Grav, UA 1.005 1 - 1.03 Blood, UA Positive Negative - 50 Abhi/mcL pH, UA 7.0 5 - 9 Protein, UA Negative Negative - 2000(20) ++++ mg/dL Urobilinogen, UA 1.0 0.2 - 12 mg/dL Leukocytes, UA Negative Negative - 500+++ Pura/mcL Nitrite, UA Negative Negative - Positive Urine 07/10/2025 2:19 PM EDT us Henok John DO POINT OF CARE TEST ENTER/EDIT OR DERABLES Final Result documented in this encounter Visit Diagnoses Diagnosis Excessive growth affecting management of in third trimester, single or unspecified fetus (HHS-HCC)- Primary Third trimester (HHS-HCC) state, incidental 33 weeks gestation of ([facility]) Hematuria, unspecified type documented in this encounter Care Teams Insight Director Relationship Specialty Start Date End Date Radha Calix PA PCP - [facility] [employer] 05/14/24 documented as of this encounter
--- NOTE | 2025-07-24 10:01 | US_ITS ---
The [address] [address] Patient Name: BRANDIE BRUNO MRN: [id number] date: 1995 Sex: F Assigned Patient Location: [facility] Current Patient Location: Accession/Order Number: [id number] Exam Date: 07/24/2025 10:02 Report Date: 07/24/2025 11:09 At the request of: NORM ALEGRE Procedure: US OB BPP w non-stress BIOPHYSICAL PROFILE: CLINICAL INFORMATION: Excessive growth COMPARISON: 07/17/2025 There is a single live intrauterine gestation in cephalic presentation. The reported gestational age is 35 weeks 3 days. The heart rate [id number] beats per minute. FINDINGS: TONE: 1 or more episodes of activity extension and flexion of extremity or opening and closing of the hand [Y] 2/2 GROSS BODY MOVEMENTS: 3 or more discrete body or limb movements [Y] 2/2 BREATHING MOVEMENTS: 1 or more episodes of breathing lasting at least 30 seconds [Y] 2/2 BENNETT: A single deepest vertical pocket of amniotic fluid greater than 2 cm [Y] 2/2 BENNETT: 18.2 cm. This is in upper normal range. Total score: 8/8 US/US OB BPP w non-stress IMPRESSION: NORMAL BIOPHYSICAL PROFILE Impression dictated by: Audrey Kuo M.D. 07/24/2025 11:09 AM Dictation Location: [place] [address] Electronically authenticated by: [id number] Y Date: 07/24/2025 11:09
--- OUTSIDE RECORDS SUMMARY | 2025-07-24 10:01 | XMS_ITS | Encounter Summary ---
Author Organization [facility] Address [id number] [place] [address] Care Team Providers Care Special Needs Child Caregiver Name Role Phone Fabiana Sandra Primary Care Provid er Encounter Details Date Type Department Care Team (Late st Contact Info) Description 09/14/2017 Telephone [facility] [address] [place] [address] Sarabjit Odom MD [facility] [place], [place] [id number] Social History Tobacco Use Types Packs/Day Years [...] on filedocumented in this encounter Care Teams Special Needs Child Caregiver Relationship Specialty Start Date End Date Fabiana Sandra APRN-CNP PCP - General Family Medicine 10/16/19 documented as of this encounter
--- OUTSIDE RECORDS SUMMARY | 2025-07-24 10:01 | XMS_ITS | Encounter Summary ---
Author Organization [facility] Address [id number] [place] [address] Care Team Providers Care Ip Technology Transactions Attorney Name Role Phone Fabiana Sandra APRN-NURSE MONITORING Primary Care Provid er Encounter Details Date Type Department Care Team (Late st Contact Info) Description 04/15/2025 Orders Only [facility] - Family Medicine [address] [place] [address] Ref Prov, [place] [address] Social History Tobacco Use Types Packs/Day Years [...] often do you attend chur ch or anglican services? Never 10/15/2021 Do you belong to any clubs o r organizations such as protestant groups, unions, fraternal or athletic groups, or [...] Answer Date Recorded Total Score 0 03/12/2024 [facility] [place] of Occupat ional Health - Occupational Stress [...] Recorded Do you need help finding a the [facility] career center and/or a training program? [...] documented as of this encounter Care Teams Ip Technology Transactions Attorney Relationship Specialty Start Date End Date Fabiana Sandra, KIM-NURSE MONITORING PCP - General Family Medicine 10/16/19 documented as of this encounter
--- OUTSIDE RECORDS SUMMARY | 2025-07-24 10:01 | XMS_ITS ---
Author Organization [employer] Source Produ ction (ClinicalSummary Clone) Address Unknown Care Team Providers Care Spinning Frame Cleaner Name Role Phone Unavailable Primary Care Physician Unavailab le Results * [UNITY] ANEUPLOIDY NIPT Performed by: [employer] Value Range Date Fraction 7.7% 02/02/2025 01 :49 am UT Rh(D) NIPT RhD DETECTED 02/02/2025 01:4 9 am UTC Sex Chromosome Aneuploidy NOT DETECTED 01:49 am UTC Monosomy X LOW RISK <1 in 10,000 2024 01:49 am UTC Trisomy 13 LOW RISK <1 in 10,000 2024 01:49 am UTC Trisomy 18 LOW RISK <1 in 10,000 2024 01:49 am UTC Trisomy 21 LOW RISK <1 in 10,000 2024 01:49 am UTC Sex MALE 02/02/2025 01:4 9 am UTC Gestation [place] 02/03/20 01:49 am UTC For detailed report, see PDF See PDF 02/02/2025 01:49 am UTC 02/02/2025 01:4 9 am UT Social History Observation Value Start Date End Date
--- OUTSIDE RECORDS SUMMARY | 2025-07-24 10:01 | XMS_ITS | Encounter Summary ---
Author Organization [facility] Address [id number] [place] [address] Care Team Providers Care Major Gifts Officer Name Role Phone Fabiana Sandra APRN-SUPPLY TECH Primary Care Provid er Encounter Details Date Type Department Care Team (Late st Contact Info) Description 07/05/2024 Orders Only [facility] - [facility] [address] [place] [address] Ellie Ruvalcaba CMA Epigastric pain; Right upper [...] often do you attend chur ch or jewish services? Never 10/15/2021 Do you belong to any clubs o r organizations such as muslim groups, unions, fraternal or athletic groups, or [...] Answer Date Recorded Total Score 0 03/12/2024 [facility] of Occupat ional Health - Occupational Stress [...] Recorded Do you need help finding a [facility] career center and/or a training program? [...] documented as of this encounter Care Teams Major Gifts Officer Relationship Specialty Start Date End Date Fabiana Sandra APRN-CNP PCP - General Family Medicine 10/16/19 documented as of this encounter
--- OUTSIDE RECORDS SUMMARY | 2025-07-24 10:01 | XMS_ITS | Encounter Summary ---
Author Organization [facility] Address [address] [facility] [place] [address] Care Team Providers Care Flavorings Compounder Name Role Phone Radha Calix Unavailable [phone] Encounter Details Date Type Department Care Team (Late Contact Info) Description 02/07/2025 Abstract [facility] HERNANDEZ [address] [place] [address] Henok Lopez DO [address] [place], [facility] Social History Tobacco Use Types [...] Department Care Team (Late Contact Info) Description 07/29/2025 9:20 AM EDT Routine MANDEEP HERNANDEZ [address] [place] [address] Josi Cardoza PA [address] [place], [place] [id number] 07/31/2025 9:30 AM EDT Ancillary Procedure MANDEEP LOZAN [address] [place] [address] 08/05/2025 10:50 AM EDT Routine [facility] [address] [place] [address] Henok Lopez, DO [address] [place] [address] 12/16/2025 2:00 PM EST Office Visit [facility]NAN[facility] [address] [place] [address] Henok Lopez, DO [address] [place] [address] documented as of this encounter Visit Diagnoses Not on filedocumented in this encounter Care Teams Flavorings Compounder Relationship Specialty Start Date End Date Radha Calix PA PCP - [facility] CLUTCH REBUILDER 05/14/24 documented as of this encounter
--- OUTSIDE RECORDS SUMMARY | 2025-07-24 10:01 | XMS_ITS | Encounter Summary ---
Author Organization [employer] [facility] [employer] Address [id number] [place] [address] Care Team Providers Care Burlap Bag Sewer Name Role Phone Fabiana Sandra APRN-BALL HOLDER Primary Care Provid er Encounter Details Date Type Department Care Team (Late st Contact Info) Description 03/30/2024 Orders Only [facility] - [facility] [address] [place] [address] External, Scanning Provider Social History Tobacco Use [...] often do you attend chur ch or quaker services? Never 10/15/2021 Do you belong to any clubs o r organizations such as samaritan groups, unions, fraternal or athletic groups, or [...] documented as of this encounter Care Teams Burlap Bag Sewer Relationship Specialty Start Date End Date Fabiana Sandra APRN-BALL HOLDER PCP - General Family Medicine 10/16/19 documented as of this encounter
--- OUTSIDE RECORDS SUMMARY | 2025-07-24 10:01 | XMS_ITS | Encounter Summary ---
Author Organization [facility] [employer] Address [id number] [place] [address] Care Team Providers Care Leather Sprayer Name Role Phone Fabiana Sandra APRN-DYNO TECHNICIAN Primary Care Provid er Reason for Visit * Reason Comments Med Refill Encounter Details Date Type Department Care Team (Late st Contact Info) Description 08/09/2023 Refill [facility] - Family Medicine [address] [place] [address] Fabiana Sandra APRN-DYNO TECHNICIAN [address] [place] [address] Anxiety and depression Social History Tobacco Use [...] often do you attend chur ch or roman catholic services? Never 10/15/2021 Do you belong to any clubs o r organizations such as jehovah's witness groups, unions, fraternal or athletic groups, or [...] Answer Date Recorded Total Score 0 04/27/2022 [facility] of Occupat ional Health - Occupational Stress [...] documented as of this encounter Care Teams Leather Sprayer Relationship Specialty Start Date End Date Fabiana Sandra, PICTURE ENGRAVER-DYNO TECHNICIAN PCP - General Family Medicine 10/16/19 documented as of this encounter
--- OUTSIDE RECORDS SUMMARY | 2025-07-24 10:01 | XMS_ITS | Encounter Summary ---
Author Organization [facility] Address [address] [facility] [place] [address] Care Team Providers Care Afterschool Name Role Phone Radha Calix Unavailable Encounter Details Date Type Department Care Team (Late Contact Info) Description 07/17/2025 Clinisync Result Encounter NOMS External Department Unsolicited Norm Patino NP [address] [facility] [place] [phone] Social History Tobacco Use Types Packs/Day Years [...] AM EDT Routine NOMS Michelle HERNANDEZ [address] [facility] [phone] Josi Cardoza PA [address] [facility] [address] [place], [facility]11 07/31/2025 9:30 AM EDT Ancillary Procedure N[facility] Michelle HERNANDEZ [address] [place] [address] 08/05/2025 10:50 AM EDT Routine NOMRuth HERNANDEZ [address] [facility] [place] [phone] Henok Lopez, DO [address] [facility] [place] [address] 12/16/2025 2:00 PM EST Office Visit NOMRuth HERNANDEZ [address] [facility] [phone] Henok Lopez, DO [address] [facility] [address] [place], [place] [phone] documented as of this encounter Procedures Procedure Name Priority Date/Time Associated Diagnosis Comments US OB BPP W NON-STRESS 07/17/2025 3:34 PM EDT documented in this encounter Results * US OB BPP W NON-STRESS (07/17/2025 3:34 PM EDT) Anatomical Region Laterality Modality Other 07/17/2025 3:34 PM EDT Narrative 07/17/2025 3:37 PM EDT [address] [address] Ultrasound Report Signed Patient: TARA ISLAS MR#: [id number] : 1995 Acct:[id number] Age/Sex: 30 / F ADM Date: 07/17/25 Loc: [facility] 251-[address]: Norm Patino Ordering Physician: Norm Patino Date of Service: 07/17/25 Procedure(s): US OB BPP w non-stress Accession Number(s): [id number] cc: MATT BRODERICK ; Norm Patino The [address] [address] Patient Name: TARA ISLAS MRN: [facility]:[id number] date: 1995 Sex: F Assigned Patient Location: [facility] Current Patient Location: [facility] Accession/Order Number: [id number] Exam Date: 07/17/2025 15:03 Report Date: 07/17/2025 15:34 At the request of: NORM PATINO Procedure: US OB BPP w non-stress Biophysical profile. Reason for exam: Excessive growth COMPARISON: None TECHNIQUE: Transabdominal imaging of the gravid uterus was obtained. FINDINGS: The chief deputy reports a BPP of 8 out of 8. BENNETT is normal at 15.6 cm. heart rate 145 bpm. US/US OB BPP w non-stress IMPRESSION: BPP 8 out of 8. Impression dictated by: Aaron Acevedo Jr., D.O. 07/17/2025 3:34 PM Dictation Location: [place] [address] Electronically authenticated by: [id number] Y Date: 07/17/2025 15:34 Dictated By: Aaron Acevedo M.D. Signed By: 07/17/25 1537 DD/ 1534 TD/TT: Patrol Mother: Procedure Note Radiology, Radiologist, MD - 07/17/2025 [place] [address] Ultrasound Report Signed Patient: TARA ISLAS [facility]#: [id number] : 1995Acct:[id number] Age/Sex: 30 / FADM Date: 07/17/25 Loc: [facility] 251-[address]: Norm Patino Ordering Physician: Norm Patino Date of Service: 07/17/25 Procedure(s): US OB BPP w non-stress Accession Number(s): [id number] cc: MATT BRODERICK Kristina The [place] [address] Patient Name: TARA ISLAS MRN: [id number] date: 1995 Sex: F Assigned Patient Location: [facility] Current Patient Location: [facility] Accession/Order Number: [id number] Exam Date: 07/17/2025 15:03 Report Date: 07/17/2025 15:34 At the request of: NORM PATINO Procedure: US OB BPP w non-stress Biophysical profile. Reason for exam: Excessive growth COMPARISON: None TECHNIQUE: Transabdominal imaging of the gravid uterus was obtained. FINDINGS: The chief deputy reports a BPP of 8 out of 8. BENNETT is normal at15.6 cm. heart rate 145 bpm. US/US OB BPP w non-stress IMPRESSION: BPP 8 out of 8. Impression dictated by: Aaron Acevedo Jr., D.O. 07/17/2025 3:34 PM Dictation Location: [place] [address] Electronically authenticated by: [id number] Y Date: 5:34 Dictated By: Aaron Acevedo M.D. Signed By:07/17/25 1537 DD/ 1534 TD/TT: Patrol Mother: us Norm Patino SET OFF PRESS OPERATOR [facility] Final Resul t documented in this encounter Visit Diagnoses Not on filedocumented in this encounter Care Teams Afterschool Relationship Specialty Start Date End Date Radha Calix PA PCP - MANDEEP Ortiz PAPIER MACHE' MOLDER 05/14/24 documented as of this encounter
--- OUTSIDE RECORDS SUMMARY | 2025-07-24 10:01 | XMS_ITS | Encounter Summary ---
Author Organization [facility] Address [address] [facility] [place] [address] Care Team Providers Care Machine Operator Name Role Phone Radha Calix Unavailable Encounter Details Date Type Department Care Team (Late Contact Info) Description 12/24/2024 Orders Only NOMRuth HERNANDEZ [facility] [place] [address] Ophelia Barros LPN [address] [facility] [address] [place] [address] Social History Tobacco Use Types Packs/Day Years [...] 9:20 AM EDT Routine [facility] Michelle HERNANDEZ [facility] [place] [address] Josi Cardoza PA [address] [place], [place] [id number] 07/31/2025 9:30 AM EDT Ancillary Procedure [facility] Michelle HERNANDEZ [facility] [place] [address] 08/05/2025 10:50 AM EDT Routine NOMRuth HERNANDEZ [address] [place] [address] [place] [address] Henok Lopez, DO [address] [facility] [place] [address] 12/16/2025 2:00 PM EST Office Visit MANDEEP HERNANDEZ [address] [facility] [place] [address] Henok Lopez, DO [address] [facility] [address] [place], [place] [phone] documented as of this encounter Procedures Procedure [...] on filedocumented in this encounter Care Teams Machine Operator Relationship Specialty Start Date End Date Radha Calix PA PCP - [facility] Diana BURDEN 05/14/24 documented as of this encounter
--- OUTSIDE RECORDS SUMMARY | 2025-07-24 10:01 | XMS_ITS | Encounter Summary ---
Author Organization [employer] Address [facility]-[id number] [address] [place] [address] Care Team Providers Care Rail Switchman Name Role Phone Fabiana Sandra Primary Care Provid er Encounter Details Date Type Department Care Team (Late st Contact Info) Description 05/08/2018 Refill [facility] Obstetrics/Gynecology [address] [facility] [place] [address] Clari Slaughter MA Social History Tobacco [...] on filedocumented in this encounter Care Teams Rail Switchman Relationship Specialty Start Date End Date Fabiana Sandra APRN-TWISTING FRAME OPERATOR PCP - General Family Medicine 10/16/19 documented as of this encounter
--- OUTSIDE RECORDS SUMMARY | 2025-07-24 10:01 | XMS_ITS | Clinical Summary ---
Author Organization [employer] Address [facility]-[id number] [address] [place] [address] Care Team Providers Care Fiber Picker Name Role Phone Fabiana Sandra APRN-PARAFFIN PLANT OPERATOR Primary Care Provid er Allergies Active Allergy [...] often do you attend chur ch or mosque services? Never 10/15/2021 Do you belong to any clubs o r organizations such as hoahaoism groups, unions, fraternal or athletic groups, or [...] Answer Date Recorded Total Score 0 03/12/2024 [facility] - Occupational Stress [...] need help finding a [facility] DJZ center and/or a training program? No 10/15/2021 [...] Narrative COPATH - 08/21/2018 12:43 PM EDT [facility] [address] [place] [address] Gynecologic Cytology Consultation Patient Name: TARA ISLAS : 1995 (Age: 23) Gender: F Taken: 08/09/2018 Reported: 08/21/2018 Physician(s): Sarabjit Odom M.D. Copy To: [facility]. Rec. #: [id number] Acct: # [id number] Final Cytologic Interpretation Cervical (with or without endocervical) ThinPrep: Satisfactory for evaluation. A transformation zone component is present. NEGATIVE FOR INTRAEPITHELIAL LESION OR MALIGNANCY. lvt/08/21/2018 Interpretation performed at [facility], [address] [place] [id number], License number: [id number]. Electronically Signed Out By HARJEET Cruz(ASCP) Date of Last Menstrual Period: 06/14/18 Other Clinical Conditions: z12.4 Screenings for malignant neoplasm of cervix z87.898 Hx of abnormal cervical pap smear Previous abnormal pap Hormone replacement therapy Previous treatment: Colposcopy and LEEP Previous cytology: HSIL, YVETTE II - III Source of Specimen Cervical (with or without endocervical) ThinPrep Thin Prep Pap (EGG PASTEURIZER) Fee Code(s): G0145 The Pap test is a screening test with an inherent, but low, probability of error. The Pap test is primarily effective for the diagnosis and prevention of squamous cell carcinoma. Regular screening is critical for prevention. ThinPrep liquid-based slides, which meet the Assistant Field Hockey Coach criteria for automated screening, have been screened by the ThinPrep Imaging System (as of 07/31/07) along with an additional manual rescreening by a willow worker and, if indicated, by a pathologist.Sarabjit Odom M.D. 08/14/2018 Sarabjit Odom MD PATHOLOGY/CYTOLOGY ORDERABLES Final Result COPATH from Last 3 Months or Most Recently Relevant to Health Maintenance Insurance [employer] Member Subscriber Plan / Payer (Ef fective 2022-Present) Name:Tara Islas Relation to Subscriber:Self Name:Tara Islas Payer ID:Not on file Group ID:[id number] Type:Not on file Address: [facility] [id number] [place] [id number] Care Teams Fiber Picker Relationship Specialty Start Date End Date Fabiana Sandra, SUPERVISOR FABRICATION DEPARTMENT-PARAFFIN PLANT OPERATOR PCP - General Family Medicine 10/16/19
--- OUTSIDE RECORDS SUMMARY | 2025-07-24 10:01 | XMS_ITS | Encounter Summary ---
Author Organization [facility] Address [address] [place] [address] Care Team Providers Care Cloth Tearer Name Role Phone Radha Calix Unavailable Encounter Details Date Type Department Care Team (Late st Contact Info) Description 05/07/2025 Abstract [facility] [address] [place] [phone] Josi Vizcaino LPN [address] [place] [address] Social History Tobacco Use Types Packs/Day Years [...] Info) Description 07/29/2025 9:20 AM EDT Routine NOMRuth HERNANDEZ [address] [place] [phone] Josi Cardoza PA [address] [place] [address] 07/31/2025 9:30 AM EDT Ancillary Procedure NOMRuth HERNANDEZ [address] [place] [address] [place] [address] 08/05/2025 10:50 AM EDT Routine NOMRuth HERNANDEZ [address] [place] [address] [place] [address] Henok Lopez, DO [address] [facility] [place] [address] 12/16/2025 2:00 PM EST Office Visit MANDEEP HERNANDEZ [address] [place] [address] [place] [address] Henok Lopez, DO [address] [facility] [place] [address] documented as of this encounter Visit Diagnoses Not on filedocumented in this encounter Care Teams Cloth Tearer Relationship Specialty Start Date End Date Radha Calix PA PCP - [facility] Diana STEEL PLACER 05/14/24 documented as of this encounter
--- OUTSIDE RECORDS SUMMARY | 2025-07-24 10:01 | XMS_ITS | Encounter Summary ---
Author Organization [employer] Address [id number] [address] [place] [address] Care Team Providers Care Waiter/Waitress Club Name Role Phone Fabiana Sandra APRN-TAX ACCOUNTANT Primary Care Provid er Encounter Details Date Type Department Care Team (Late st Contact Info) Description 03/15/2024 Telephone [facility] Internal Medicine - Family Medicine [address] [facility] [place] [phone] Mikala Murphy CMA Social History Tobacco Use [...] often do you attend chur ch or gnosticism services? Never 10/15/2021 Do you belong to any clubs o r organizations such as confucianist groups, unions, fraternal or athletic groups, or [...] Answer Date Recorded Total Score 0 03/12/2024 [facility] - Occupational [...] documented as of this encounter Care Teams Waiter/Waitress Club Relationship Specialty Start Date End Date Fabiana Sandra APRN-CNP PCP - General Family Medicine 10/16/19 documented as of this encounter
--- OUTSIDE RECORDS SUMMARY | 2025-07-24 10:01 | XMS_ITS | Encounter Summary ---
Author Organization [facility] Address [address] [facility] [place] [address] Care Team Providers Care Automotive Paint Technician Name Role Phone Radha Calix Unavailable [phone] Encounter Details Date Type Department Care Team (Late st Contact Info) Description 04/04/2025 Results Follow-Up MANDEEP [place] OBGYFany [address] [address] Hemalatha Fatima LPN [address] [employer] [place] [id number] RECURRENT VAGINITIS (HTRX) Social History Tobacco Use Types Packs/Day Years [...] Description 07/29/2025 9:20 AM EDT Routine [facility]S Nara Visa [facility]BG[facility] [address] [place] [address] [place] [address] Josi Cardoza PA [address] [place] [address] 07/31/2025 9:30 AM EDT Ancillary Procedure [facility] Michelle OBGYN [address] [place] [address] [place] [address] 08/05/2025 10:50 AM EDT Routine [facility] Michelle OBGYN [address] [place] [address] [place] [address] Henok Lopez DO [address] [facility] [place] [address] 12/16/2025 2:00 PM EST Office Visit NOMS Michelle OBGYN [address] [facility] [address] Henok Lopez, [address] [facility] [place] [address] documented as of this encounter Visit Diagnoses Not on filedocumented in this encounter Care Teams Automotive Paint Technician Relationship Specialty Start Date End Date Radha Calix PA PCP - NOMS Diana AIRLINE STATION AGENT 05/14/24 documented as of this encounter
--- OUTSIDE RECORDS SUMMARY | 2025-07-24 10:01 | XMS_ITS | Encounter Summary ---
Author Organization [facility] Address [address] [facility] [place] [address] Care Team Providers Care Cut And Cover Line Worker Name Role Phone Radha Calix Unavailable [phone] Encounter Details Date Type Department Care Team (Late Contact Info) Description 05/31/2025 Abstract MANDEEP HERNANDEZ [address] [facility] [place] [address] Henok Lopez DO [address] [facility] [address] [place], [facility] Social History Tobacco Use Types Packs/Day Years [...] 9:20 AM EDT Routine MANDEEP HERNANDEZ [address] [facility] [place] [address] Josi Cardoza PA [address] [facility] [address] [place], [place] [phone] 07/31/2025 9:30 AM EDT Ancillary Procedure MANDEEP LOZAN [address] [facility] [place] [address] 08/05/2025 10:50 AM EDT Routine NOMS Michelle OBGYN [address] [facility] [place] [address] Henok Lopez, DO [address] [facility] [place] [address] 12/16/2025 2:00 PM EST Office Visit NOMRuth HERNANDEZ [address] [facility] [place] [address] Henok Lopez, DO [address] [facility] [place] [address] documented as of this encounter Visit Diagnoses Not on filedocumented in this encounter Care Teams Cut And Cover Line Worker Relationship Specialty Start Date End Date Radha Calix PA PCP - [facility]S Diana FUR NAILER 05/14/24 documented as of this encounter
--- OUTSIDE RECORDS SUMMARY | 2025-07-24 10:01 | XMS_ITS | Clinical Summary ---
Author Organization [facility] Address [address] [facility] [place] [address] Care Team Providers Care Perinatal Instructor Name Role Phone Radha Calix Unavailable [phone] Allergies Active Allergy Reactions Criticality Noted [...] extremities TWICE DAILY NEEDED 01/23/20 25 Active iron polysaccharides (ProFe) 391.3 (180 Fe) MG capsuleIndications: Anemia affecting in third trimester ([facility]-HCC) Take 1 capsule (391.3 mg) by mouth Daily 30 capsule 6 06/11/20 25 025 Active Problems Estimated Date of Delivery Comme nts Yes 08/25/2025 Based on last me nstrual period of 11/18/2024 No known active problems Encounters Date Type Department Care Team Description 07/17/2025 Clinisync Result Encounter [facility] External Department Unsolicited Carey, Jo Ann, BALLER TENDER 07/10/2025 2:10 [place] [address] Henok Lopez DO Excessive growth affecting management of in third trimester, single or unspecified fetus ([facility]) (Primary Dx); Third trimester ([facility]-H[facility]); 33 weeks gestation of ([facility]HS-HCC); Hematuria, unspecified type 07/10/2025 1:30 PM EDT [place] [address] Excessive growth affecting management of , antepartum, single or unspecified fetus ([facility]) 06/26/2025 1:30 [place] [address] Josi Cardoza PA Third trimester ([facility]); 31 weeks gestation of ([facility]) 06/26/2025 [place] [address] oJsi Cardoza PA 06/11/2025 2:00 PM [place] [address] Henok Lopez DO Third trimester ([facility]); 29 weeks gestation of ([facility]); Anemia affecting in third trimester ([facility]); Excessive growth affecting management of , antepartum, single or unspecified fetus ([facility]) 06/11/2025 1:30 PM EDT [place] [address] Size of fetus inconsistent with dates in second trimester ([facility]HS-HCC) 05/31/2025 [place] [address] Henok Lopez DO 05/29/2025 1:20 PM EDT Routine [facility] [place] [address] Josi Cardoza PA Size of fetus inconsistent with dates in second trimester ([facility]) (Primary Dx); Second trimester ([facility]); 27 weeks gestation of ([facility]) 05/29/2025 Clinisync Result Encounter [facility] External Department Unsolicited Henok Lopez DO 05/09/2025 Patient Outreach [facility] [place] [id number] [place] [address] Josi Vizcaino LPN 05/07/2025 Abstract [facility] [address] [place] [address] Josi Vizcaino LPN 05/02/2025 8:50 AM EDT Routine [facility] [place] [address] Henok Lopez DO Diabetes mellitus screening; Second trimester ([facility]); 23 weeks gestation of ([facility]) 05/02/2025 Bamboo flowsheet [place] [address] Henok Lopez DO from Last 3 Months [...] (197 lb) 07/10/2025 2:13 PM EDT Height 160 cm (5' 3 ) 11/30/2022 12:00 PM EST Body Mass Index 34.9 11/30/2022 12:00 PM EST Plan of Treatment Upcoming Encounters Date Type Department Care Team (Late st Contact Info) Description 07/29/2025 9:20 AM EDT Routine [facility] [address] [place] [address] Josi Cardoza PA [address] [place] [address] 07/31/2025 9:30 AM EDT Ancillary Procedure [facility] [address] [place] [address] [place] [address] 08/05/2025 10:50 AM EDT Routine [facility] [address] [place] [address] [place] [address] Henok Lopez DO [address] [facility] [place] [address] 12/16/2025 2:00 PM EST Office Visit [facility]NAN[facility] [address] [place] [address] [place] [address] Henok Lopez, [address] [facility] [place] [address] Health Maintenance Due Date Last Done Comments Influenza Vaccine (#1) 2025 Procedures Procedure Name Priority Date/Time Associated Diagnosis Comments US OB BPP W NON-STRESS 07/17/2025 3:34 PM EDT POCT URINALYSIS DIPSTICK Routine 07/10/2025 2:19 PM EDT Third trimester ([facility]) US OB FOLLOW UP TRANSABDOMINAL APPROACH Routine 07/10/2025 1:48 PM EDT Excessive growth affecting management of , antepartum, single or unspecified fetus ([facility]-HCC) POCT URINALYSIS DIPSTICK Routine 06/26/2025 1:39 PM EDT Third trimester ([facility]) POCT URINALYSIS DIPSTICK Routine 06/11/2025 2:52 PM EDT Third trimester ([facility]HCC) US OB FOLLOW UP TRANSABDOMINAL APPROACH Routine 06/11/2025 2:03 PM EDT Size of fetus inconsistent with dates in second trimester ([facility]HS-HCC) POCT URINALYSIS DIPSTICK Routine 05/29/2025 1:39 PM EDT Second trimester ([facility]HS-HCC) GLUCOSE 1 HOUR Routine 05/29/2025 11:24 AM EDT ALL CBC WITH AUTO DIFF Routine 11:24 AM EDT POCT URINALYSIS DIPSTICK Routine 05/02/2025 9:13 AM EDT Second trimester ([facility]HS-HCC) from Last 3 Months Results * US OB BPP W NON-STRESS (07/17/2025 3:34 PM EDT) Anatomical Region Laterality Modality Other 07/17/2025 3:34 PM EDT Narrative 07/17/2025 3:37 PM EDT [address] [address] Ultrasound Report Signed Patient: TARA ISLAS MR#: [id number] : 1995 Acct:[id number] Age/Sex: 30 / F ADM Date: 07/17/25 Loc: [facility] 251-[address]: Jo Ann Patino Ordering Physician: Jo Ann Patino Date of Service: 07/17/25 Procedure(s): US OB BPP w non-stress Accession Number(s): [id number] cc: MATT BRODERICK ; Jo Ann Patino The [address] [address] Patient Name: TARA ISLAS MRN: [id number] date: 1995 Sex: F Assigned Patient Location: [facility] Current Patient Location: [facility] Accession/Order Number: [id number] Exam Date: 07/17/2025 15:03 Report Date: 07/17/2025 15:34 At the request of: JO ANN PATINO Procedure: US OB BPP w non-stress Biophysical profile. Reason for exam: Excessive growth COMPARISON: None TECHNIQUE: Transabdominal imaging of the gravid uterus was obtained. FINDINGS: The research professional reports a BPP of 8 out of 8. BENNETT is normal at 15.6 cm. heart rate 145 bpm. US/US OB BPP w non-stress IMPRESSION: BPP 8 out of 8. Impression dictated by: Aaron Acevedo Jr., D.O. 07/17/2025 3:34 PM Dictation Location: [place] [address] Electronically authenticated by: [id number] Y Date: 07/17/2025 15:34 Dictated By: Aaron Acevedo M.D. Signed By: 07/17/25 1537 DD/ 1534 TD/TT: Regulatory Auditor: Procedure Note Radiology, Radiologist, MD - 07/17/2025 The [place] [id number] Ultrasound Report Signed Patient: TARA ISLAS AMR#: [id number] : 1995Acct:[id number] Age/Sex: 30 / FADM Date: 07/17/25 Loc: [facility] 251-[address]: Jo Ann Patino Ordering Physician: Jo Ann Patino Date of Service: 07/17/25 Procedure(s): US OB BPP w non-stress Accession Number(s): [id number] cc: MATT BRODERICK Kristina [address] [address] Patient Name: TARA ISLAS MRN: [id number] date: 1995 Sex: F Assigned Patient Location: [facility] Current Patient Location: [facility] Accession/Order Number: [id number] Exam Date: 07/17/2025 15:03 Report Date: 07/17/2025 15:34 At the request of: JO ANN PATINO Procedure: US OB BPP w non-stress Biophysical profile. Reason for exam: Excessive growth COMPARISON: None TECHNIQUE: Transabdominal imaging of the gravid uterus was obtained. FINDINGS: The research professional reports a BPP of 8 out of 8. BENNETT is normal at15.6 cm. heart rate 145 bpm. US/US OB BPP w non-stress IMPRESSION: BPP 8 out of 8. Impression dictated by: Aaron Acevedo Jr., D.O. 07/17/2025 3:34 PM Dictation Location: [place] [address] Electronically authenticated by: [id number] Y Date: 5:34 Dictated By: Aaron Acevedo M.D. Signed By:07/17/25 1537 DD/ 1534 TD/TT: Regulatory Auditor: Jo Ann Patino BALLER TENDER [facility] Final Resul t * (ABNORMAL) POCT urinalysis dipstick manually resulted (07/10/2025 2:19 PM EDT) Only the most recent of5 resultswithin the time period is included. Color, [...] - Positive Urine 07/10/2025 2:19 PM EDT [facility]ARE TEST ENTER/EDIT OR DERABLES Final Result * US OB follow up transabdominal approach (07/10/2025 1:48 PM EDT) Only the most recent of2 resultswithin the time period is included. Anatomical Region Laterality Modality Body Ultrasound 07/11/2025 [...] OB US PROCEDURES Final Resul t * GLUCOSE 1 HOUR (05/29/2025 11:24 AM EDT) GLUCOSE 1 HOUR 129 <130 mg/dL [facility] 05/29/2025 11:2 4 AM EDT 05/29/2025 11:25 AM EDT Narrative [facility] - 05/29/2025 11:40 AM EDT us Henok John DO LAB BLOOD ORDERABLES Final Resul t [facility] * (ABNORMAL) ALL CBC WITH AUTO DIFF (05/29/2025 11:24 AM EDT) [facility] TB WBC 9.7 4.0 - 11.0 10 3/uL [facility] RBC 3.42(L) 4.20 - 5.40 10 6/uL [facility] HGB 10.0(L) 12.0 - 16.0 g/dL [facility] HCT 30.1(L) 36.0 - 48.0 % [facility] MCV 88.0 81.0 - 99.0 fL TBH [facility] MCH 29.2 26.7 - 34.0 pg TBH TBH MCHC 33.2 29.9 - 35.2 g/dL [facility] RDW 13.0 11.0 - 15.0 % [facility] PLT 176 150 - 450 10 3/uL [facility]H TBH MPV 9.1(L) 9.5 - 13.5 fL [facility] NEUTROPHILS PERCENT AUTO 76.6(H) 43.0 - 75.0 % [facility] LYMPHOCYTES PERCENT AUTO 15.2(L) 20.5 - 60.0 % [facility] MONOCYTES PERCENT AUTO 5.4 1.7 - 12.0 % [facility]H EO % 0.9 0.9 - 7.0 % [facility] BASOPHILS PERCENT AUTO 0.2 0.2 - 2.0 % [facility] IMMATURE GRANULOCYTES PCT AUTO 1.7(H) 0.0 - 0.5 % [facility] NEUTROPHILS ABSOLUTE AUTO 7.5(H) 1.4 - 6.5 10 3/uL [facility] LYMPHOCYTES ABSOLUTE AUTO 1.5 1.2 - 3.8 10 3/uL [facility] MONOCYTES ABSOLUTE AUTO 0.5 0.3 - 0.8 10 3/uL [facility] TBH EO # 0.1 0.0 - 0.7 10 3/uL [facility] BASOPHILS ABSOLUTE AUTO 0.0 0.0 - 0.1 10 3/uL [facility] IMMATURE GRANULOCYTES ABS AUTO 0.17(H) 0.00 - 0.03 10 3/uL [facility] 05/29/2025 11:2 4 AM EDT 05/29/2025 11:25 AM EDT Narrative [facility] - 05/29/2025 11:38 AM EDT Henok Lopez DO [facility] Final Result [facility] from Last 3 Months Insurance [employer] [place]ICA[place] Care Teams Perinatal Instructor Relationship Specialty Start Date End Date Radha Calix PA PCP - [facility] [employer] SAL[employer]ER 05/14/24
--- OUTSIDE RECORDS SUMMARY | 2025-07-24 10:02 | XMS_ITS | CCD ---
Author Organization [facility] Care Team Providers Care Manager Operations And Procurement Name Role Phone JOHN, DR TRAN Admitting [...] J Primary Care Unavailable Radha Dickerson Unavailable [phone] Sandra HOOK TENDER-DISH PERSON, Matt J Primary Care Provid er Radha Dickerson Unavailable [phone] CHELSEA LOPEZ Attending Unavailable CHELSEA LOPEZ Attending Unavailable JOSI DUENAS Attending Unavailable JOHNCHELSEA Alcazar Attending Unavailable JOSI DUENAS Attending Unavailable JOHNCHELSEA Alcazar Attending Unavailable JOSI DUENAS Attending Unavailable CHELSEA LOPEZ Referring Unavailable CHELSEA LOPEZ Attending Unavailable Allergies Allergy Classification Reported Allergen(s) Allergy Type Date of Onset Reaction(s) Facility (1 source) Cephalexin Drug Allergy 2 The [facility] Repository (20 sources) Cephalexin; Translations: [CEPHALEXIN] Drug [...] OB BPP W NON-STRESS on 07-17-2025 [place] [address] Ultrasound Report Signed Patient: TARA BRUNO MR#: [id number] : 1995 Acct:[id number] Age/Sex: 30 / F ADM Date: 07/17/25 Loc: [facility] 251-[address]: Jo Ann Patino Ordering Physician: Jo Ann Patino Date of Service: 07/17/25 Procedure(s): US OB BPP w non-stress Accession Number(s): [id number] cc: MATT SANDRA ; Jo Ann Patino [place] [address] Patient Name: TARA BRUNO MRN: [employer]:[id number] date: 1995 Sex: F Assigned Patient Location: [facility] Current Patient Location: [facility] Accession/Order Number: [id number] Exam Date: 07/17/2025 15:03 Report Date: 07/17/2025 15:34 At the request of: JO ANN PATINO Procedure: US OB BPP w non-stress Biophysical profile. Reason for exam: Excessive growth COMPARISON: None TECHNIQUE: Transabdominal imaging of the gravid uterus was obtained. FINDINGS: The director style reports a BPP of 8 out of 8. BENNETT is normal at 15.6 cm. heart rate 145 bpm. US/US OB BPP w non-stress IMPRESSION: BPP 8 out of 8. Impression dictated by: Aaron Acevedo Jr., D.O. 07/17/2025 3:34 PM Dictation Location: [place] [address] Electronically authenticated by: [id number] Y Date: 07/17/2025 15:34 Dictated By: Aaron Acevedo M.D. Signed By: 07/17/25 1537 DD/ 1534 TD/TT: Business Dean: [employer] Radiology, Radiologist, - 07/17/2025 [place] [address] Ultrasound Report Signed Patient: TARA BRUNO MR#: [id number] : 1995 Acct:[id number] Age/Sex: 30 / F ADM Date: 07/17/25 Loc: [facility] 251-[address]: Jo Ann Patino Ordering Physician: Jo Ann Patino Date of Service: 07/17/25 Procedure(s): US OB BPP w non-stress Accession Number(s): [id number] cc: MATT SANDRA ; Jo Ann Patino [place] [address] Patient Name: TARA BRUNO MRN: [id number] date: 1995 Sex: F Assigned Patient Location: [facility] Current Patient Location: [facility] Accession/Order Number: [id number] Exam Date: 07/17/2025 15:03 Report Date: 07/17/2025 15:34 At the request of: JO ANN PATINO Procedure: US OB BPP w non-stress Biophysical profile. Reason for exam: Excessive growth COMPARISON: None TECHNIQUE: Transabdominal imaging of the gravid uterus was obtained. FINDINGS: The director style reports a BPP of 8 out of 8. BENNETT is normal at 15.6 cm. heart rate 145 bpm. US/US OB BPP w non-stress IMPRESSION: BPP 8 out of 8. Impression dictated by: Aaron Acevedo Jr., D.O. 07/17/2025 3:34 PM Dictation Location: [place] [address] Electronically authenticated by: [id number] Y Date: 07/17/2025 15:34 Dictated By: Aaron Acevedo M.D. Signed By: 07/17/25 1537 DD/ 1534 TD/TT: Business Dean: [facility] Radiology Study observation (narrative) [facility] US OB BPP W NON-STRESS Ordered By: Radiologist Radiology on 07-17-2025 [facility] [employer] Work Phone: US OB FOLLOW UP TRANSABDOMIN [...] UA Negative Negative - 4(70) +++ mg/dL [facility] Blood, UA Positive Negative - 50 Abhi/mcL [facility] Clarity, UA Clear [facility] Color, UA Yellow [facility] Glucose, UA Negative Negative - 1999(110) ++++ mg/dL [facility] Interpretation and review of laboratory results Abnormal [facility] Ketones, UA Negative Negative - 160(16) ++++ mg/dL [facility] Leukocytes, UA Negative Negative - 500+++ Pura/mcL [facility] Nitrite, UA Negative Negative - Positive [facility] pH, UA 7 5 - 9 [facility] Protein, UA Negative Negative - 1999(20) ++++ mg/dL [facility] Spec Grav, UA 1.005 1 - 1.03 [facility] Urobilinogen, UA 1.0 0.2 - 12 mg/dL [facility] Urinalysis macro (dipstick) panel (U)on 06-26-2025 Bilirubin, UA Negative Negative - 4(70) +++ mg/dL [facility] Blood, UA Positive Negative - 50 Abhi/mcL [facility] Comment on above: Trace Clarity, UA Clear [facility] Color, UA Yellow [facility] Glucose, UA Negative Negative - 2000(110) ++++ mg/dL [facility] Interpretation and review of laboratory results Abnormal [facility] Ketones, UA Positive Negative - 160(16) ++++ mg/dL [facility] Comment on above: Trace Leukocytes, UA Negative Negative - 500+++ Pura/mcL [facility] Nitrite, UA Negative Negative - Positive [facility] pH, UA 6 5 - 9 [facility] Protein, UA Trace Negative - 2000(20) ++++ mg/dL [facility] Spec Grav, UA 1.02 1 - 1.03 [facility] Urobilinogen, UA 0.2 0.2 - 12 mg/dL [facility] US OB FOLLOW UP TRANSABDOMIN AL APPROACHon [...] II, MD, PHD at 12-Jun-2025 07:34:42 AM [facility] Normal Not Available Comment on above: Order Comment: US OB SCAN FOR GROWTH Estimated Date of Delivery: 08/25/25 Gestational Age as of 05/29/2025: 27w3d Urinalysis macro (dipstick) panel (U)on 06-11-2025 Bilirubin, UA Negative Negative - 4(70) +++ mg/dL [facility] Blood, UA Positive Negative - 50 Abhi/mcL [facility] Comment on above: Trace Clarity, UA Clear [facility] Color, UA Yellow [facility] Glucose, UA Negative Negative - 2000(110) ++++ mg/dL [facility] Interpretation and review of laboratory results Abnormal [facility] Ketones, UA Positive Negative - 160(16) ++++ mg/dL [facility] Comment on above: Trace Leukocytes, UA Negative Negative - 500+++ Pura/mcL [facility] Nitrite, UA Negative Negative - Positive [facility] pH, UA 6 5 - 9 [facility] Protein, UA Negative Negative - 2000(20) ++++ mg/dL [facility] Spec Grav, UA 1.015 1 - 1.03 [facility] Urobilinogen, UA 0.2 0.2 - 12 mg/dL [facility] ALL CBC WITH AUTO DIFFon BASOPHILS ABSOLUTE AUTO 0 N [facility] Basophils/100 WBC (Bld) 0.2 % 0.2 - 2.0 % [facility] Eosinophils/100 WBC (Bld) 0.9 % 0.9 - 7.0 % [facility] Erythrocyte distribution width (RBC) [Ratio] 13 % 11.0 - 15.0 % [facility] Hematocrit (Bld) [Volume fraction] 30.1 % Low 36.0 - 48.0 % [facility] Hemoglobin (Bld) [Mass/Vol] 10 g/dL Low 12.0 - 16.0 g/dL [facility] IMMATURE GRANULOCYTES ABS AUTO 0.17 High [facility] Immature granulocytes/100 WBC (Bld) 1.7 % High 0.0 - 0.5 % [facility] Interpretation and review of laboratory results Abnormal [facility] LYMPHOCYTES ABSOLUTE AUTO 1.5 [facility] Lymphocytes/100 WBC (Bld) 15.2 % Low 20.5 - 60.0 % [facility] MCH (RBC) [Entitic mass] 29.2 pg 26.7 - 34.0 pg [facility] MCHC (RBC) [Mass/Vol] 33.2 g/dL 29.9 - 35.2 g/dL [facility] MCV (RBC) [Entitic vol] 88 fL 81.0 - 99.0 fL [facility] MONOCYTES ABSOLUTE AUTO 0.5 N [facility] Monocytes/100 WBC (Bld) 5.4 % 1.7 - 12.0 % [facility] NEUTROPHILS ABSOLUTE AUTO 7.5 High [facility] Neutrophils/100 WBC (Bld) 76.6 % High 43.0 - 75.0 % [facility] Platelet mean volume (Bld) [Entitic vol] 9.1 fL Low 9.5 - 13.5 fL [facility] TBH EO # 0.1 [facility] TB PLT 176 [facility] RBC 3.[address] [facility] WBC 9.7 [facility] Urinalysis macro (dipstick) panel (U)on 05-29-2025 Bilirubin, UA Negative Negative - 4(70) +++ mg/dL [facility] Blood, UA Positive Negative - 50 Abhi/mcL [facility] Comment on above: trace Clarity, UA Clear [facility] Color, UA Yellow [facility] Glucose, UA Positive Negative - 1999(110) ++++ mg/dL [facility] Comment on above: 100 Interpretation and review of laboratory results Abnormal [facility] Ketones, UA Negative Negative - 160(16) ++++ mg/dL [facility] Leukocytes, UA Negative Negative - 500+++ Pura/mcL [facility] Nitrite, UA Negative Negative - Positive [facility] pH, UA 6 5 - 9 [facility] Protein, UA Negative Negative - 1999(20) ++++ mg/dL [facility] Spec Grav, UA 1.01 1 - 1.03 [facility] Urobilinogen, UA 0.2 0.2 - 12 mg/dL [facility] Urinalysis macro (dipstick) panel (U)on 05-02-2025 Bilirubin, UA Negative Negative - 4(70) +++ mg/dL [facility] Blood, UA Positive Negative - 50 Abhi/mcL [facility] Comment on above: small Clarity, UA Clear [facility] Color, UA Yellow [facility] Glucose, UA Positive Negative - 1999(110) ++++ mg/dL [facility] Comment on above: 100mg/dL Interpretation and review of laboratory results Abnormal [facility] Ketones, UA Negative Negative - 160(16) ++++ mg/dL [facility] Leukocytes, UA Negative Negative - 500+++ Pura/mcL [facility] Nitrite, UA Negative Negative - Positive [facility] pH, UA 6 5 - 9 [facility] Protein, UA Positive Negative - 1999(20) ++++ mg/dL [facility] Comment on above: 30mg/dL Spec Grav, UA 1.03 1 - 1.03 [facility] Urobilinogen, UA 0.2 0.2 - 12 mg/dL [facility] No Panel InformationOrdered By: Radiologist Radiology on 04-10-2025 [facility] Work Phone: No Panel Informationon 04-10 Radiology Study observation (narrative) [facility] US OB ANATOMYon 04-10-[address] [address] Ultrasound Report Signed Patient: TARA BRUNO MR#: [id number] : 1995 Acct:[id number] Age/Sex: 30 / F ADM Date: 04/10/25 Loc: US Attending Dr: Chelsea Lopez D.O. Ordering Physician: Chelsea Lopez D.O. Date of Service: 04/10/25 Procedure(s): US OB anatomy Accession Number(s): [id number] cc: MATT SANDRA ; Chelsea Lopez D.O. [address] [address] Patient Name: TARA BRUNO MRN: [id number] date: 1995 Sex: F Assigned Patient Location: US Current Patient Location: US Accession/Order Number: [id number] Exam Date: 04/10/2025 16:00 Report Date: 04/10/2025 [...] Wynn M.D. 04/10/2025 4:04 PM Dictation Location: [place] [address] Electronically authenticated by: [id number] Y Date: 04/10/2025 16:04 Dictated By: Ashish Wynn D.O. Signed By: 04/10/25 1607 DD/ 1604 TD/TT: Business Dean: [employer] Radiology, Radiologist, MD - 04/10/2025 [place] [address] Ultrasound Report Signed Patient: TARA BRUNO MR#: [id number] : 1995 Acct:[id number] Age/Sex: 30 / F ADM Date: 04/10/25 Loc: US Attending Dr: Chelsea Lopez D.O. Ordering Physician: Chelsea Lopez D.O. Date of Service: 04/10/25 Procedure(s): US OB anatomy Accession Number(s): [id number] cc: MATT SANDRA ; Chelsea Lopez D.O. [address] [address] Patient Name: TARA BRUNO MRN: [id number] date: 1995 Sex: F Assigned Patient Location: US Current Patient Location: US Accession/Order Number: [id number] Exam Date: 04/10/2025 16:00 Report Date: 04/10/2025 [...] Wynn M.D. 04/10/2025 4:04 PM Dictation Location: [place] Electronically authenticated by: [id number] Y Date: 04/10/2025 16:04 Dictated By: Ashish Wynn D.O. Signed By: 04/10/251606 DD/ 03 TD/TT: Business Dean: MANDEEP Jaramillo US OB CERVICAL LENGTHon 03-15 [place] [address] Ultrasound Report Signed Patient: TARA BRUNO MR#: [id number] : 1995 Acct:[id number] Age/Sex: 30 / F ADM Date: 04/10/25 Loc: US Attending Dr: Chelsea Lopez D.O. Ordering Physician: Chelsea Lopez D.O. Date of Service: 04/10/25 Procedure(s): US OB cervical length Accession Number(s): [id number] cc: MATT SANDRA ; Chelsea Lopez D.O. [place] [address] Patient Name: TARA BRUNO MRN: [employer]:[id number] date: 1995 Sex: F Assigned Patient Location: US Current Patient Location: US Accession/Order Number: [id number] Exam Date: 04/10/2025 16:04 Report Date: 04/10/2025 16:04 At the request of: CHELSEA LOPEZ DO Procedure: US OB cervical length Obstetrical ultrasound to assess for cervical length Cervical length 3.9 cm. Os closed. US/US OB cervical length IMPRESSION: Cervical length 3.9 cm. Impression dictated by: Ashish Wynn M.D. 04/10/2025 4:04 PM Dictation Location: [place] [address] Electronically authenticated by: [id number] Y Date: 04/10/2025 16:04 Dictated By: Ashish Wynn D.O. Signed By: 04/10/251606 DD/ 03 TD/TT: Business Dean: [employer] Radiology, Radiologist, - 04/10/2025 [place] [address] Ultrasound Report Signed Patient: TARA BRUNO MR#: [id number] : 1995 Acct:[id number] Age/Sex: 30 / F ADM Date: 04/10/25 Loc: US Attending Dr: Chelsea Lopez D.O. Ordering Physician: Chelsea Lopez D.O. Date of Service: 04/10/25 Procedure(s): US OB cervical length Accession Number(s): [id number] cc: MATT SANDRA ; Chelsea Lopez D.O. [place] [address] Patient Name: TARA BRUNO MRN: [id number] date: 1995 Sex: F Assigned Patient Location: US Current Patient Location: US Accession/Order Number: [id number] Exam Date: 04/10/2025 16:04 Report Date: 04/10/2025 16:04 At the request of: CHELSEA LOPEZ DO Procedure: US OB cervical length Obstetrical ultrasound to assess for cervical length Cervical length 3.9 cm. Os closed. US/US OB cervical length IMPRESSION: Cervical length 3.9 cm. Impression dictated by: Ashish Wynn M.D. 04/10/2025 4:04 PM Dictation Location: [place] [address] Electronically authenticated by: [id number] Y Date: 04/10/2025 16:04 Dictated By: Ashish Wynn D.O. Signed By: 04/10/25 1607 DD/ 1604 TD/TT: Business Dean: [facility] Healthcare RECURRENT VAGINITIS (HTRX)on 04-04-2025 ATOPOBIUM [...] detected [facility] AYSHA KRUSEI 16.514 Abnormal [facility] AYSHA KRUSEI Detected Abnormal [facility] CHLAMYDIA TRACHOMATIS 0 NOM S [facility] CHLAMYDIA TRACHOMATIS Not detected N [facility] ERMB, C; MEFA 22.692 Abnormal [facility] Healthcare ERMB, C; MEFA Detected Abnormal [facility] GARDNERELLA VAGINALIS 26.666 Abnormal [facility] GARDNERELLA VAGINALIS Detected Abnormal [facility] Healthcare Interpretation and review of laboratory results Abnormal [facility] MEGASPHAERA (TYPES 1, 2) 21.837 Abnormal [facility] MEGASPHAERA (TYPES 1, 2) Detected Abnormal [facility] MYCOPLASMA GENITALIUM 0 NOM S [facility] MYCOPLASMA GENITALIUM Not detected N [facility] NEISSERIA GONORRHOEAE 0 NOM S [facility] NEISSERIA GONORRHOEAE Not detected N [facility] TET B, TET M 20.933 Abnormal [facility] TET B, TET M Detected Abnormal [facility] TRICHOMONAS VAGINALIS 0 NOM [facility] TRICHOMONAS VAGINALIS Not detected N [facility] Urinalysis macro (dipstick) panel (U)on 04-03-2025 Bilirubin, UA Negative Negative - 4(70) +++ mg/dL [facility] Blood, UA Positive Negative - 50 Abhi/mcL [facility] Comment on above: trace Clarity, UA Clear [facility] Color, UA Yellow [facility] Glucose, UA Positive Negative - 1999(110) ++++ mg/dL [facility] Comment on above: 100 Interpretation and review of laboratory results Abnormal [facility] Ketones, UA Negative Negative - 160(16) ++++ mg/dL [facility] Leukocytes, UA Positive Negative - 500+++ Pura/mcL [facility] Comment on above: small Nitrite, UA Negative Negative - Positive [facility] pH, UA 6 5 - 9 [facility] Protein, UA Trace Negative - 1999(20) ++++ mg/dL [facility] Spec Grav, UA 1.02 1 - 1.03 [facility] Urobilinogen, UA 0.2 0.2 - 12 mg/dL [facility] Urinalysis macro (dipstick) panel (U)on 02-26-2025 Bilirubin, UA Negative Negative - 4(70) +++ mg/dL [facility] Blood, UA Negative Negative - 50 Abhi/mcL [facility] Clarity, UA Clear [facility] Color, UA Yellow [facility] Glucose, UA Negative Negative - 2000(110) ++++ mg/dL [facility] Interpretation and review of laboratory results Normal [facility] Ketones, UA Negative Negative - 160(16) ++++ mg/dL [facility] Leukocytes, UA Negative Negative - 500+++ Pura/mcL [facility] Nitrite, UA Negative Negative - Positive [facility] pH, UA 6 5 - 9 [facility] Protein, UA Negative Negative - 1999(20) ++++ mg/dL [facility] Spec Grav, UA 1.02 1 - 1.03 [facility] Urobilinogen, UA 0.2 0.2 - 12 mg/dL [facility] US OB TRANSVAGINALon 025 US OB TRANSVAGINAL [...] II, MD, PHD at 27-Jan-2025 07:45:14 AM [facility] Normal Not Available Comment on above: Order Comment: US OB TRANSVAGINAL No LMP recorded. IGP,APTIMA HPV,AGE GDLNon AGE GDLN ACOG TESTING Note . [facility] Comment on above: TESTS RESULT FLAG UN ITS REF RANGE LAB Clinician Provided Cytology Information Source.............Cervix;Endocervix No. of containers..01 ThinPrep Vial Age Algo ACOG Violetta... FLAG LEGEND: L-Low Normal,H-High Normal,LL-Alert Low,HH-Alert High <-Panic Low,>-Panic High,A-Abnormal,AA-Critical Abnormal Performed at: 01 =G [facility] [address] Adriana Pfeiffer MD, IGP, RFX APTIMA HPV ASCU Note . [facility] Comment on above: TESTS RESULT FLAG UN ITS REF RANGE LAB DIAGNOSIS: 02 NEGATIVE FOR INTRAEPITHELIAL LESION OR MALIGNANCY. Specimen adequacy: 02 Satisfactory for evaluation. Endocervical and/or squamous metaplastic cells (endocervical component) are present. Performed by: 02 Erin Barbosa Well Flow Operator ([facility]) . 02 Note: Note 02 The Pap [...] <-Panic Low,>-Panic High,A-Abnormal,AA-Critical Abnormal Performed at: [address] [address] Adriana Pfeiffer MD, Performed at: =G - [facility] [address] [id number] [employer] Mixer: Adriana Pfeiffer MD, Phone: [phone] Performed at: - [facility] [id number] [employer]er: Adriana Pfeiffer MD, Phone: [phone] [facility] , urineon 02-13 Beta HCG ( test) Ql (U) Negative [facility] POCT Influenza A/Influenza B /SARS-COV-2 VeritorOrdered By: Ellie Ruvalcaba on 02-08-2024 External Poct Influenza A Antigen Negative [facility] External Poct Influenza B Antigen Negative [facility] SARS-CoV-2 (COVID-19) Ag IA.rapid Ql (Resp) Negative [facility] POCT rapid strep Aon 024 Internal Planer Off Bearer Check Completed and Passed Yes [facility] Interpretation and review of laboratory results Normal [facility] S. pyogenes Ag IA Ql (Unsp spec) Negative Negative [facility] US PELVIS AND TRANSVAGon US PELVIS AND [...] by: SAHARA APODACA Date: 2022-12-01 08:05 Normal [facility] US PELVIS TRANSVAGon 022 US PELVIS [...] by: YAMEL GOMEZ Date: 2022-02-10 14:27 Normal [facility] Vital Signs Date Time Vital Sign Value Performing Clinician Facility 07-10-2025 14:13-0400 Body mass index (BMI) [Ratio] 34.9 kg/m2 Chelsea John DO Work Phone: [facility] 07-10-2025 14:13-0400 Body weight 89.36 kg Chelsea John DO Work Phone: [facility] 07-10-2025 14:13-0400 Diastolic blood pressure 74 mm[Hg] Chelsea John DO Work Phone: [facility] 07-10-2025 14:13-0400 Systolic blood pressure 122 mm[Hg] Chelsea John DO Work Phone: [facility] 06-26-2025 13:34-0400 Body mass index (BMI) [Ratio] 34.28 kg/m2 Josi HERNANDEZ Work Phone: [facility] 06-26-2025 13:34-0400 Body weight 87.77 kg Josi HERNANDEZ Work Phone: [facility] 06-26-2025 13:34-0400 Diastolic blood pressure 60 mm[Hg] Josi HERNANDEZ Work Phone: [facility] 06-26-2025 13:34-0400 Systolic blood pressure 116 mm[Hg] Josi HERNANDEZ Work Phone: [facility] 06-11-2025 14:47-0400 Body mass index (BMI) [Ratio] 34.06 kg/m2 Chelsea John DO Work Phone: [facility] 06-11-2025 14:47-0400 Body weight 87.2 kg Chelsea John DO Work Phone: [facility] 06-11-2025 14:47-0400 Diastolic blood pressure 68 mm[Hg] Chelsea John DO Work Phone: [facility] 06-11-2025 14:47-0400 Systolic blood pressure 122 mm[Hg] Chelsea John DO Work Phone: [facility] 05-29-2025 13:39-0400 Body mass index (BMI) [Ratio] 33.66 kg/m2 Josi Sony PA Work Phone: [facility] 05-29-2025 13:39-0400 Body weight 86.18 kg Josi Sony PA Work Phone: [facility] 05-29-2025 13:39-0400 Diastolic blood pressure 70 mm[Hg] Josi Sony PA Work Phone: [facility] 05-29-2025 13:39-0400 Systolic blood pressure 110 mm[Hg] Josi Sony PA Work Phone: [facility] 05-02-2025 09:09-0400 Body mass index (BMI) [Ratio] 32.42 kg/m2 Chelsea John DO Work Phone: [facility] 05-02-2025 09:09-0400 Body weight 83.01 kg Chelsea John DO Work Phone: [facility] 05-02-2025 09:09-0400 Diastolic blood pressure 64 mm[Hg] Chelsea John DO Work Phone: [facility] 05-02-2025 09:09-0400 Systolic blood pressure 102 mm[Hg] Chelsea John DO Work Phone: [facility] 04-03-2025 09:41-0400 Body mass index (BMI) [Ratio] 31 kg/m2 Josi Sony PA Work Phone: [facility] 04-03-2025 09:41-0400 Body weight 79.38 kg Josi Sony PA Work Phone: [facility] 04-03-2025 09:41-0400 Diastolic blood pressure 72 mm[Hg] Josi Duenas PA Work Phone: [facility] 04-03-2025 09:41-0400 Systolic blood pressure 116 mm[Hg] Josi HERNANDEZ Work Phone: [facility] 02-26-2025 09:50-0400 Body mass index (BMI) [Ratio] 29.94 kg/m2 Chelsea John DO Work Phone: [facility] 02-26-2025 09:50-0400 Body weight 76.66 kg Chelsea John DO Work Phone: [facility] 02-26-2025 09:50-0400 Diastolic blood pressure 76 mm[Hg] Chelsea John DO Work Phone: [facility] 02-26-2025 09:50-0400 Systolic blood pressure 110 mm[Hg] Chelsea John DO Work Phone: [facility] 12-11-2024 13:26-0500 Body mass index (BMI) [Ratio] 29.05 kg/m2 Chelsea John DO Work Phone: [facility] 12-11-2024 13:26-0500 Body weight 74.39 kg Chelsea John DO Work Phone: [facility] 12-11-2024 13:26-0500 Diastolic blood pressure 68 mm[Hg] Chelsea John DO Work Phone: [facility] 12-11-2024 13:26-0500 Systolic blood pressure 114 mm[Hg] Chelsea John DO Work Phone: [facility] 07-03-2024 15:11-0400 Body height 157.48 cm [facility] 07-03-2024 15:11-0400 Body mass index (BMI) [Ratio] 29.2 kg/m2 [facility] 07-03-2024 15:11-0400 Body weight 72.57 kg [facility] 03-12-2024 11:21-0400 Body height 157.5 cm Matt THOMPSON Work Phone: [facility] 03-12-2024 11:21-0400 Body mass index (BMI) [Ratio] 28.55 kg/m2 Matt Sandra APRN-YVES Work Phone: [facility] [employer] [facility] 03-12-2024 11:21-0400 Body temperature 98.1 [degF] Matt Sandra APRN-DISH PERSON Work Phone: [facility] [employer] [facility] 03-12-2024 11:21-0400 Body weight 70.81 kg Matt Sandra APRN-DISH PERSON Work Phone: [facility] [employer] [facility] 03-12-2024 11:21-0400 Diastolic blood pressure 68 mm[Hg] Matt Sandra APRN-YVES Work Phone: [facility] [employer] [facility] 03-12-2024 11:21-0400 Heart rate 79 /min Matt Sandra APRN-YVES Work Phone: [facility] 03-12-2024 11:21-0400 Respiratory rate 20 /min Matt Sandra APRN-YVES Work Phone: [facility] [employer] [facility] 03-12-2024 11:21-0400 SaO2% (BldA) [Mass fraction] 100 % Matt Sandra APRN-YVES Work Phone: [facility] [employer] [facility] 03-12-2024 11:21-0400 Systolic blood pressure 110 mm[Hg] Matt Sandra APRN-YVES Work Phone: [facility] [employer] [facility] 02-08-2024 11:53-0400 Body height 157.5 cm Cuco Ceron APRN-DISH PERSON Work Phone: [facility] [employer] [facility] 02-08-2024 11:53-0400 Body mass index (BMI) [Ratio] 28.9 kg/m2 Cuco Ceron APRN-DISH PERSON Work Phone: [facility] [employer] [facility] 02-08-2024 11:53-0400 Body temperature 98.2 [degF] Cuco Ceron APRN-DISH PERSON Work Phone: [facility] 02-08-2024 11:53-0400 Body weight 71.67 kg Cuco Ceron HOOK TENDER-DISH PERSON Work Phone: [facility] 02-08-2024 11:53-0400 Diastolic blood pressure 68 mm[Hg] Cuco Ceron HOOK TENDER-DISH PERSON Work Phone: [facility] 02-08-2024 11:53-0400 Heart rate 97 /min Cuco Ceron HOOK TENDER-DISH PERSON Work Phone: [facility] 02-08-2024 11:53-0400 Respiratory rate 18 /min Cuco Ceron HOOK TENDER-DISH PERSON Work Phone: [facility] 02-08-2024 11:53-0400 SaO2% (BldA) [Mass fraction] 97 % Cuco Ceron APRN-DISH PERSON Work Phone: [facility] 02-08-2024 11:53-0400 Systolic blood pressure 112 mm[Hg] Cuco Ceron APRN-DISH PERSON Work Phone: [facility] 01-03-2024 10:16-0500 Body height 157.5 cm Matt Sandra APRN-DISH PERSON Work Phone: [facility] 01-03-2024 10:16-0500 Body mass index (BMI) [Ratio] 29.23 kg/m2 Matt Sandra APRN-DISH PERSON Work Phone: [facility] 01-03-2024 10:16-0500 Body temperature 97.3 [degF] Matt Sandra APRN-DISH PERSON Work Phone: [facility] 01-03-2024 10:16-0500 Body weight 72.48 kg Matt Sandra APRN-DISH PERSON Work Phone: [facility] 01-03-2024 10:16-0500 Diastolic blood pressure 58 mm[Hg] Matt Sandra APRN-DISH PERSON Work Phone: [facility] 01-03-2024 10:16-0500 Heart rate 72 /min Matt Sandra APRN-DISH PERSON Work Phone: [facility] [employer] [facility] 01-03-2024 10:16-0500 SaO2% (BldA) [Mass fraction] 99 % Matt Sandra APRN-DISH PERSON Work Phone: [facility] [employer] [facility] 01-03-2024 10:16-0500 Systolic blood pressure 102 mm[Hg] Matt Sandra APRN-DISH PERSON Work Phone: [facility] Encounters Encounter Date Encounter Type Care Provider [...] Comment on above: Third trimester preg alejandro ([facility]); 31 weeks gestation of ([facility]) Start: 06-26-2025 End: 06-26-2025 ambulatory JOSI DUENAS Not Available Start: 06-11-2025 End: 06-11-2025 ambulatory CHELSEA JOHN Not Available Start: 06-11-2025 End: 06-11-2025 Office outpatient visit 15 minutes Chelsea John DO Work Phone: MANDEEP HERNANDEZ Comment on above: Third trimester preg alejandro ([facility]); 29 weeks gestation of ([facility]); Anemia affecting in third trimester ([facility]); Excessive growth affecting management of , antepartum, single or unspecified fetus ([facility]) Start: 06-11-2025 End: 06-11-2025 ambulatory CHELSEA [...] incons istent with dates in second trimester ([facility]) (Primary Dx); Second trimester ([facility]); 27 weeks gestation of ([facility]) Start: 05-02-2025 End: 05-02-2025 Bamboo flowsheet Chelsea John DO Work Phone: [facility] Start: 05-02-2025 End: 05-02-2025 Bamboo flowsheet Chelsea John DO Work Phone: [facility] Start: 05-02-2025 End: 05-02-2025 ambulatory CHELSEA JOHN Not Available Start: 05-02-2025 End: 05-02-2025 Office outpatient visit 15 minutes Chelsea John DO Work Phone: [facility] Comment on above: Diabetes mellitus sc reening; Second trimester ([facility]); 23 weeks gestation of ([facility]) Start: 04-10-2025 End: 04-10-2025 Clinisync Result Encounter Chelsea John DO Work Phone: [facility] External Department Unsolicited Start: 04-10-2025 End: 04-10-2025 Clinisync Result Encounter Chelsea John DO Work Phone: [facility] External Department Unsolicited Start: 04-03-2025 End: 04-03-2025 Bamboo flowsheet Josi HERNANDEZ Work Phone: [facility] Start: 04-03-2025 End: 04-04-2025 Bamboo flowsheet Josi HERNANDEZ Work Phone: [facility] Start: 04-03-2025 End: 04-04-2025 External Result Encounter Josi HERNANDEZ Work Phone: [facility] Unsolicited Start: 04-03-2025 End: 04-03-2025 Office outpatient visit 15 minutes Josi HERNANDEZ Work Phone: [facility] Comment on above: Second trimester pre gnancy; 18 weeks gestation of ; Screening, , for anatomic survey; Screening examination for STI; Need for maternal serum alpha-protein (MSAFP) screening Start: 04-03-2025 End: 04-03-2025 ambulatory JOSI DUENAS Not Available Start: 02-26-2025 End: 02-26-2025 Bamboo flowsheet Chelsea John DO Work Phone: [facility] Start: 02-26-2025 End: 02-26-2025 Bamboo flowsheet Chelsea John DO Work Phone: [facility] Start: 02-26-2025 End: 02-26-2025 Office [...] Result Encounter Chelsea John DO Work Phone: [facility] External Department Unsolicited Start: 12-11-2024 End: 12-11-2024 Patient encounter procedure Chelsea John DO Work Phone: [facility] Start: 12-11-2024 End: 12-11-2024 Periodic preventive med est patient 18-39 yrs Chelsea John DO Work Phone: [facility] Comment on above: Well woman exam with routine gynecological exam Start: 12-11-2024 End: 12-11-2024 ambulatory CHELSEA JOHN Not Available Start: 07-03-2024 End: 07-03-2024 ambulatory [facility] Work Phone: Start: 07-03-2024 End: 07-03-2024 Patient encounter procedure [facility] Work Phone: Start: 04-10-2024 Non-patient / Non-visit [facility] Work Phone: Start: 03-12-2024 End: 03-12-2024 ambulatory MATT SANDRA [facility] Start: 03-12-2024 End: 03-12-2024 Office outpatient visit 15 minutes Matt Sandra HOOK TENDER-DISH PERSON Work Phone: [facility] Comment on above: Anxiety and depressi on (Primary Dx); Nausea; Syncope, unspecified syncope type Start: 02-27-2024 End: 02-28-2024 ambulatory [facility] Travis burton Start: 02-09-2024 Telephone encounter Mikala sultana [facility] Start: 02-08-2024 End: 02-08-2024 ambulatory [facility] Start: 02-08-2024 End: 02-08-2024 Office outpatient visit 15 minutes [facility] Work Phone: [facility] Comment on above: Viral upper respirat ory tract infection (Primary Dx); Chills; Epigastric pain; Syncope and collapse; Gastroesophageal reflux disease, unspecified whether esophagitis present Start: 01-03-2024 End: 01-03-2024 ambulatory [facility] Start: 01-03-2024 End: 01-03-2024 [facility]-DISH PERSON Work Phone: [facility] Comment on above: Anxiety and depressi on (Primary Dx) Start: 12-01-2022 End: 12-01-[address] CHELSEA LOPEZ Facility:[facility] Start: 11-30-2022 End: 12-01-[address] CHELSEA LOPEZ Facility:[facility] Start: 02-10-2022 End: 02-11-[address] CHELSEA LOPEZ Facility:[facility] Start: 07-29-2017 End: 07-29-2017 Emergency department patient visit [facility] Procedures Date Procedure Procedure Detail Performing Clinician Start: 07-17-2025 US OB BPP W NON-STRESS Jo Ann Patino WINDOWS CONSULTANT Work Phone: Start: 07-10-2025 Urnls dip stick/tabl [...] test visual color cmprsn meths Matt Sandra HOOK TENDER-DISH PERSON Work Phone: Start: 03-12-2024 Adult depression scr eening assessment Matt Sandra HOOK TENDER-DISH PERSON Work Phone: Start: 02-08-2024 Iaadiadoo streptococ cus group a Cuco Ceron [facility] Work Phone: Start: 02-08-2024 POCT INFLUENZA A/INF LUENZA B/SARS-COV-2 VERITOR Cuco Ceron [facility] Work Phone: Start: 02-08-2024 Adult depression scr eening assessment Cuco Ceron [facility] Work Phone: Start: 01-03-2024 Adult depression scr eening assessment Matt Sandra [facility] Work Phone: Start: 08-09-2018 Microscopic observat ion [Identifier] in Cervix by Cyto stain Matt Sandra [facility] Work Phone: Plan of Treatment Date Care Activity Detail Author Start: 12-16-2025 End: 12-16-2025 Patient encounter procedure [facility] Start: 08-05-2025 End: 08-05-2025 Patient encounter procedure 08/05/2025 10:50 AM EDT Routine [facility] [address] [place] [id number] Chelsea Lopez DO [address] [place] [address] [facility] Start: 07-31-2025 End: 07-31-2025 Professional / ancillary services management 07/31/2025 9:30 AM EDT Ancillary Procedure [facility] [place] [facility] [address] [place] [address] [facility] Start: 07-29-2025 End: 07-29-2025 Patient encounter procedure 07/29/2025 9:20 AM EDT Routine [facility] [place] [facility] [address] [place] [address] Josi Duenas PA [address] [address] [facility] [place] [facility] Start: 07-15-2025 Influenza vaccination [facility] Start: 07-10-2025 End: 07-10-2025 Patient encounter procedure 07/10/2025 2:10 PM EDT Routine [facility] HERNANDE[facility] [address] [place] [phone] Chelsea Lopez DO [address] [place] [address] [facility] [place] [facility] Start: 07-10-2025 End: 01-10-2026 US biophysical profile w non stress test US biophysical profile w non stress test Imaging Routine Excessive growth affecting management of in third trimester, single or unspecified fetus ([facility]) Expected: 07/10/2025 (Approximate), Expires: 01/10/2026 [facility] Comment on above: Expected: 07/10/2025 (Approximate), Expires: 01/10/2026 Start: 07-10-2025 End: 11-09-2025 US for US OB follow up transabdominal approach Imaging Routine Excessive growth affecting management of in third trimester, single or unspecified fetus ([facility]) Expected: 07/10/2025, Expires: 11/09/2025 [facility] Work Phone: Comment on above: Expected: 07/10/2025 , Expires: 11/09/2025 Start: 07-10-2025 End: 07-10-2025 Professional / ancillary services management 07/10/2025 1:30 PM EDT Ancillary Procedure MANDEEP HERNANDEZ [address] [place] [phone] [facility] Start: 06-26-2025 End: 06-26-2025 Patient encounter procedure [facility] Comment on above: Arrived Start: 06-11-2025 End: 06-11-2025 Patient encounter procedure 06/11/2025 2:00 PM EDT Routine [facility] [address] [place] [phone] Chelsea Lopez DO [address] [place] [place] [address] [facility] Start: 06-11-2025 End: 10-12-2025 US for US OB follow up transabdominal approach Imaging Routine Excessive growth affecting management of , antepartum, single or unspecified fetus ([facility]) Expected: 06/11/2025, Expires: 10/12/2025 [facility] Work Phone: Comment on above: Expected: 06/11/2025 , Expires: 10/12/2025 Start: 06-11-2025 End: 06-11-2025 Professional / ancillary services management 06/11/2025 1:30 PM EDT Ancillary Procedure [facility] [address] [place] [phone] [facility] Start: 05-29-2025 End: 09-29-2025 US for US OB follow up transabdominal approach Imaging Routine Size of fetus inconsistent with dates in second trimester ([facility]) Expected: 05/29/2025, Expires: 09/29/2025 [facility] Work Phone: Comment on above: Expected: 05/29/2025 , Expires: 09/29/2025 Start: 05-29-2025 End: 05-29-2025 Patient encounter procedure 05/29/2025 1:20 PM EDT Routine [facility] [address] [place] [phone] Josi Duenas PA [address] [place] [address] [facility] Start: 05-02-2025 End: 05-02-2026 CBC panel - Blood by Automated count CBC Lab Routine Diabetes mellitus screening Expected: 05/02/2025 (Approximate), Expires: 05/02/2026 [facility] Work Phone: Comment on above: Expected: 05/02/2025 (Approximate), Expires: 05/02/2026 Start: 05-02-2025 End: 05-02-2026 Measurement of glucose 1 hour after glucose challenge for glucose tolerance test Glucose tolerance, 1 hour Lab Routine Diabetes mellitus screening Expected: 05/02/2025 (Approximate), Expires: 05/02/2026 [facility] Comment on above: Expected: 05/02/2025 (Approximate), Expires: 05/02/2026 Start: 05-02-2025 End: 05-02-2025 Patient encounter procedure 05/02/2025 8:50 AM EDT Routine [facility] [address] [place] [phone] Chelsea Lopez, DO [address] [place] [address] [facility] Start: 04-03-2025 End: 05-04-2025 Alpha fetoprotein, maternal Alpha fetoprotein, maternal Lab Routine Need for maternal serum alpha-protein (MSAFP) screening Expected: 04/03/2025 (Approximate), Expires: 05/04/2025 [facility] Comment on above: Expected: 04/03/2025 (Approximate), Expires: 05/04/2025 Start: 04-03-2025 End: 07-04-2025 US for US OB 14+ weeks anatomy scan Imaging Routine Screening, , for anatomic survey Expected: 04/03/2025, Expires: 07/04/2025 [facility] Comment on above: Expected: 04/03/2025 , Expires: 07/04/2025 Start: 04-03-2025 End: 04-03-2025 Patient encounter procedure [facility] Comment on above: Arrived Start: 03-12-2025 Adult BMI Screening Adult BMI Screen ing [facility] Start: 03-12-2025 Depression Screening Depression Scre ening [facility] Start: 03-12-2025 Tobacco Screening Tobacco Screening [facility] Start: 02-26-2025 End: 02-26-2025 Patient encounter procedure 02/26/2025 9:50 AM EDT Routine [facility] [address] [place] [phone] Chelsea Lopez, DO [address] [place] [address] Arrived [facility] Comment on above: Arrived Start: 02-07-2025 Adult BMI Screening Adult BMI Screen ing [facility] Start: 02-07-2025 Depression Screening Depression Scre ening [facility] Start: 02-07-2025 Tobacco Screening Tobacco Screening [facility] Start: 01-03-2025 Adult BMI Follow Up Plan Adult BMI Follow Up Plan [facility] Start: 01-03-2025 Adult BMI Screening Adult BMI Screen ing [facility] Start: 01-03-2025 Depression Screening Depression Scre ening [facility] Start: 01-03-2025 Tobacco Screening Tobacco Screening [facility] Start: 12-11-2024 End: 12-11-2024 Patient encounter procedure 12/11/2024 1:20 PM EST Office Visit [facility] [address] [place] [phone] Chelsea Lopez, DO [address] [place] [address] Arrived [facility] Comment on above: Arrived Start: 07-15-2024 Influenza vaccination Influenza Vacc ine (#1) [facility] Start: 03-12-2024 End: 03-12-2024 Patient encounter procedure 03/12/2024 11:20 AM EDT [facility] [address] [place] [phone] Matt Sandra, HOOK TENDER-DISH PERSON [address] [place] [phone] [facility] Start: 02-21-2024 End: 02-21-2024 Patient encounter procedure 02/21/2024 9:40 AM EDT Office Visit [facility] [address] [place] [address] Matt Sandra, HOOK TENDER-DISH PERSON [address] [place] [address] [facility] Start: 02-08-2024 End: 02-07-2025 Event monitor Event monitor Cardiac Services Routine Syncope and collapse Expected: 02/08/2024, Expires: 02/07/2025 [facility] Work Phone: Comment on above: Expected: 02/08/2024 , Expires: 02/07/2025 Start: 08-09-2021 Screening for malign ant neoplasm of cervix Pap Smear [facility] Start: 02-02-2007 DTaP,Tdap and Td Vaccines (6 - Tdap) DTaP,Tdap and Td Vaccines (6 - Tdap) [facility] Bacteria identified in Urine by Culture Urine culture Microbiology Routine Hematuria, unspecified type Ordered: 07/10/2025 [facility] Comment on above: Ordered: 07/10/2025 End: 03-12-2025 Basic metabolic 2000 panel - Serum or Plasma Basic Metabolic Panel Lab Routine Nausea 1 Occurrences starting 03/12/2024 until 03/12/2025 [facility] Comment on above: 1 Occurrences starti ng 03/12/2024 until 03/12/2025 End: 03-12-2025 CBC W Auto Differential panel - Blood CBC auto differential Lab Routine Nausea 1 Occurrences starting 03/12/2024 until 03/12/2025 [facility] Work Phone: Comment on above: 1 Occurrences starti ng 03/12/2024 until 03/12/2025 CHLAMYDIA TRACHOMATI S (GENITO/STI) CHLAMYDIA TRACHOMATIS (GENITO/STI) Lab Routine Screening examination for STI Ordered: 04/03/2025 [facility] Comment on above: Ordered: 04/03/2025 Cytology Cervical or vaginal smear or scraping study Pap Smear Pathology and Cytology Routine Well woman exam with routine gynecological exam Ordered: 12/11/2024 [facility] [employer] Work Phone: Comment on above: Ordered: 12/11/2024 Hepatic function panel [facility] Neisseria gonorrhoea e DNA [Presence] in Unspecified specimen by MARION with probe detection Neisseria gonorrhea DNA probe, direct Lab Routine Screening examination for STI Ordered: 04/03/2025 [facility] Comment on above: Ordered: 04/03/2025 SURESWAB(R) ADVANCED VAGINITIS PLUS, TMA SURESWAB(R) ADVANCED VAGINITIS PLUS, TMA Pathology and Cytology Routine Screening examination for STI Ordered: 04/03/2025 [facility] [employer] Work Phone: Comment on above: Ordered: 04/03/2025 US Abdomen limited [facility] Immunizations Immunization Date Immunization Notes Care Provider Maegan collins 07-30-2002 diphtheria, tetanus toxoids and acellular pertussis vaccine Matt Sandra HOOK TENDER-[facility] Work Phone: [facility] 07-30-2002 measles, mumps and rubella virus vaccine Matt Sandra HOOK TENDER-DISH PERSON Work Phone: [facility] 07-30-2002 poliovirus vaccine, inactivated Matt Sandra HOOK TENDER-[facility] Work Phone: [facility] 06-14-1997 diphtheria, tetanus toxoids and acellular pertussis vaccine Matt Sandra HOOK TENDER-DISH PERSON Work Phone: [facility] 06-14-1997 haemophilus influenz ae type b vaccine, conjugate unspecified formulation Matt Sandra HOOK TENDER-DISH PERSON Work Phone: [facility] 06-14-1997 measles, mumps and rubella virus vaccine Matt Sandra HOOK TENDER-DISH PERSON Work Phone: [facility] 1996 diphtheria, tetanus toxoids and acellular pertussis vaccine Matt Sandra HOOK TENDER-DISH PERSON Work Phone: [facility] 1996 haemophilus influenz ae type b vaccine, conjugate unspecified formulation Matt Sandra [facility]OOK TENDER-[facility] Work Phone: [facility] 1996 hepatitis B vaccine, adult dosage Matt Sandra HOOK TENDER-DISH PERSON Work Phone: [facility] 1996 poliovirus vaccine, inactivated Matt Sandra HOOK TENDER-DISH PERSON Work Phone: [facility] 1996 diphtheria, tetanus toxoids and acellular pertussis vaccine Matt Sandra HOOK TENDER-DISH PERSON Work Phone: [facility] 1996 haemophilus influenz ae type b vaccine, conjugate unspecified formulation Matt Sandra HOOK TENDER-[facility] Work Phone: [facility] 1996 poliovirus vaccine, inactivated Matt Sandra HOOK TENDER-DISH PERSON Work Phone: [facility] 1996 diphtheria, tetanus toxoids and acellular pertussis vaccine Matt Sandra HOOK TENDER-[facility] Work Phone: [facility] 1996 haemophilus influenz ae type b vaccine, conjugate unspecified formulation Matt Sandra HOOK TENDER-[facility] Work Phone: [facility] 1996 hepatitis B vaccine, adult dosage Matt Sandra HOOK TENDER-DISH PERSON Work Phone: [facility] 1996 poliovirus vaccine, inactivated Matt Sandra HOOK TENDER-DISH PERSON Work Phone: [facility] 1996 hepatitis B vaccine, adult dosage Matt Sandra HOOK TENDER-DISH PERSON Work Phone: [facility] Payers Date Payer Category Payer Medicaid [id number] 2022 Medicaid [id number] 2017 Unknown [id number] 1996 Unknown [id number] 2.16.84 0.1.708902.3.579.2.593 1996 Unknown [id number] 2.16.84 0.1.105977.3.579.2.593 1996 Unknown [id number] 2.16.84 0.1.886785.3.579.2.593 1996 Unknown [id number] 2.16.8 40.1.725793.3.579.2.1286 1996 Unknown [id number] 2.16.8 40.1.836101.3.579.2.1286 1996 Unknown [id number] 2.16.8 40.1.272175.3.579.2.1286 1996 Unknown [id number] 2.16.8 40.1.058402.3.579.2.1286 1996 Unknown [id number] 2.16.8 40.1.279729.3.579.2.1259 1996 Unknown [id number] 2.16.8 40.1.613304.3.579.2.1259 1996 Unknown [id number] 2.16.8 40.1.081507.3.579.2.1259 1996 Unknown [id number] 2.16.8 40.1.915698.3.579.2.1259 1996 Unknown [id number] 2.16.8 40.1.654834.3.579.2.1259 1996 Unknown [id number] 2.16.8 40.1.876364.3.579.2.1259 1996 Unknown [id number] 2.16.8 40.1.347863.3.579.2.9 1996 Unknown [id number] 2.16.84 0.1.873188.3.579.2.1259 1996 Unknown [id number] 2.16.84 0.1.282088.3.579.2.1259 1996 Unknown [id number] 2.16.84 0.1.268780.3.579.2.1259 1996 Unknown [id number] 2.16.84 0.1.986103.3.579.2.1259 1996 Unknown [id number] 2.16.84 0.1.451673.3.579.2.1259 1959 Unknown [id number] Social History Date Type Detail Facility Start: 07-04-2023 End: 07-03-2024 Tobacco smoking status NHIS Never smoked tobacco (finding) [facility] Start: 1995 Sex Assigned At Female F [facility] Start: 07-04-2023 End: 01-03-2024 Tobacco use and exposure Smokeless tobacco non-user [facility] Start: 12-05-2023 End: 07-10-2025 Alcoholic beverage intake Lifetime non-drinker (finding) [facility] Start: 12-05-2023 End: 12-11-2024 History of Social function [facility] Start: 12-05-2023 End: 12-11-2024 Tobacco use panel [facility] Start: 1995 Sex assigned at Not on file P [facility] Start: 01-03-2024 End: 03-12-2024 Alcohol intake Current non-drinker of alcohol (finding) [facility] Do you belong to any clubs or organizations such as hinduism groups, unions, fraternal or athletic groups, or school groups? No [facility] Are you now , , , , never or living with a partner? Never [facility] How often to you hav e a drink containing alcohol? Monthly or less [facility] How many standard dr inks containing alcohol do you have on a typical day? 1 or 2 [facility] How often do you hav e 6 or more drinks on 1 occasion? Less than monthly [facility] How hard is it for y ou to pay for the very basics like food, housing, medical care, and heating Somewhat hard [facility] Adolescent depressio n screening assessment 5 [facility] Do you feel stress - tense, restless, nervous, or anxious, or unable to sleep at night because your mind is troubled all the time - these days [OSQ] Rather much [facility] Start: 10-19-2019 Education 12 [facility] Start: 12-02-2024 [facility] Notes 01-03-2024 to 07-10-2025 Jo Ann Patino NP - 07/10/2025 2:10 PM DAVID Kaur - 06/26/2025 1:30 PM PRIYANKTAudrey Weir LPN - 06/11/2025 2:00 PM DAVID Kuar - 05/29/2025 1:20 PM DAVID Kaur - [...] ASSESSMENT & PLAN ICD-10-CM 1. Third trimester ([facility]) Z34.93 POCT urinalysis dipstick manually resulted 2. 33 weeks gestation of ([facility]) Z3A.33 Return OB: Patient presents today [...] Chelsea Lopez DO documented in this encounter [facility] 06-26-2025 History of Presen t [...] ASSESSMENT & PLAN ICD-10-CM 1. Third trimester ([facility]) Z34.93 POCT urinalysis dipstick manually resulted 2. 31 weeks gestation of ([facility]) Z3A.31 Return OB: Patient presents today [...] of: DAVID Reid documented in this encounter [facility] 06-11-2025 History of Presen t [...] nursing note reviewed. Exam conducted with a regrind mill operator present. Vitals: Estimated body mass index is 34.06 kg/m as calculated from the following: Height as of 11/30/22: 5' 3 . Weight as of this encounter: 192 lb 4 oz. BP: 122/68 Patient's last menstrual period was 11/18/2024. ASSESSMENT & PLAN ICD-10-CM 1. Third trimester ([facility]) Z34.93 POCT urinalysis dipstick manually resulted 2. 29 weeks gestation of ([facility]) Z3A.29 3. Anemia affecting in third trimester ([facility]) O99.013 iron polysaccharides (ProFe) 391.3 (180 Fe) MG capsule 4. Excessive growth affecting management of , antepartum, single or unspecified fetus ([facility]) O36.60X0 Return OB: Patient presents today [...] Chelsea Lopez DO documented in this encounter [facility] 05-29-2025 History of Presen t [...] ASSESSMENT & PLAN ICD-10-CM 1. Second trimester ([facility]) Z34.92 POCT urinalysis dipstick manually resulted 2. 27 weeks gestation of ([facility]) Z3A.27 Return OB: Patient presents today [...] of: DAVID Reid documented in this encounter [facility] 05-02-2025 History of Presen t [...] Glucose tolerance, 1 hour 2. Second trimester ([facility]) Z34.92 POCT urinalysis dipstick manually resulted 3. 23 weeks gestation of ([facility]) Z3A.23 Return OB: Patient presents today [...] Chelsea Lopez DO documented in this encounter [facility] 04-03-2025 History of Presen t [...] of: DAVID Reid documented in this encounter [facility] 02-26-2025 History of Presen t [...] nursing note reviewed. Exam conducted with a regrind mill operator present. Vitals: Estimated body mass index is [...] or undercooked meat, and stay away from [facility]. Patient has been consulted regarding any further do's and don'ts of . Patient voiced understanding and all questions and concerns were answered. Orders Placed This Encounter Procedures POCT urinalysis dipstick manually resulted Follow Up: Patient is to return in 4 weeks for routine OB appointment. Documented by Audrey Weir LPN on behalf of: Chelsea Lopez DO documented in this encounter [facility] 12-11-2024 History of Presen t [...] nursing note reviewed. Exam conducted with a regrind mill operator present. Vitals: Estimated body mass index is [...] Chelsea Lopez DO documented in this encounter [facility] 04-02-2024 Evaluation note Authored July 03, 2024 3:25pm 29-year-old female referred to the GI clinic for evaluation of upper abdominal pain. +upper abdominal pain that has resolved few months ago. She states that she still gets intermittent abdominal discomfort but less severe than how it was Will check CBC, LFTs and Lipase Will arrange US of the upper abdomen [facility] Work Phone: [phone] History of Present illness Narrative* Matt Sandra, KIM-DISH PERSON - 03/12/2024 11:20 AM EDT Images from the original note were not included. [address] [place] [id number] SUBJECTIVE: Patient ID: Tara Bruno is a [...] 10/12/2017 Performed by Sarabjit Odom MD at [facility] TONSILLECTOMY WISDOM TOOTH EXTRACTION Past Medical History: [...] 03/12/24 1305 [facility] Miscellaneous Notes* Telephone Encounter - Mikala Murphy CMA - 02/09/2024 9:06 AM EDT Pt called and was in to see you yesterday 02/07 and is stuffed up today and coughing up yellow. Could you send in something to her local pharmacy? * Telephone Encounter - JAY Knight - 02/09/2024 9:06 AM EDT Zpak sent to [facility] pharmacy. 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 * Telephone Encounter - Mikala Murphy CMA - 02/09/2024 9:06 AM EDT I called and read your note. Pt will get scheduled after this illness [facility] Telephone encounter Note* Telephone Encounter - Mikala Murphy CMA - 02/09/2024 9:06 AM EDT Pt called and was in to see you yesterday 02/07 and is stuffed up today and coughing up yellow. Could you send in something to her local pharmacy? [facility]-28-2024 Telephone encounter Note* Telephone Encounter - JAY Knight - 02/09/2024 9:06 AM EDT Zpak sent to [facility] pharmacy. 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 [facility]-28-2024 Telephone encounter Note* Telephone Encounter - Mikala Murphy CMA - 02/09/2024 9:06 AM EDT I called and read your note. Pt will get scheduled after this illness [facility]03-27-2024 History of Present illness Narrative* JAY Little - 02/08/2024 11:40 AM EDT [place] [address] Patient: Tara Bruno Date of : 1995 [...] 02/08/24 1255 [facility] History of Present illness Narrative* JAY Knight - 01/03/2024 10:15 AM EST Images from the original note were not included. [address] [facility] [address] SUBJECTIVE: Patient ID: Tara Bruno is a 28 y.o. female. Chief Complaint Patient presents with Anxiety Tara presents today wishing to restart medication for her moods. She does feel she ideally depressed. Her concern is anxiety, irritability, and feels short tempered. Is managing deal of personal stressors. Custody issues with her children's father who lives out of state. Has graduated from [employer]. 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 Depression [...] 10/12/2017 Performed by Sarabjit Odom MD at [facility] TONSILLECTOMY WISDOM TOOTH EXTRACTION Past Medical History: [...] JAY Knight 01/03/24 1047 [facility]* Diagnosis Well woman exam with routine gynecological exam Routine gynecological examination documented in this encounter [facility]* Diagnosis Anxiety and depression- Primary [facility] Diagnosis Acute bacterial sinusitis- Primary Acute sinusitis, unspecified [facility] Diagnosis Viral upper respiratory tract infection- Primary Acute upper respiratory infections of unspecified site Chills Chills (without fever) Epigastric pain Abdominal pain, epigastric Syncope and collapse Gastroesophageal reflux disease, unspecified whether esophagitis present [facility] Diagnosis Anxiety and depression- Primary Nausea Nausea alone Syncope, unspecified syncope type [facility]* Diagnosis Second trimester state, incidental 12 weeks gestation of documented in this encounter [facility]* Diagnosis Second trimester state, incidental 18 weeks gestation of Screening, , for anatomic survey Encounter for anatomic survey Screening examination for STI Need for maternal serum alpha-protein (MSAFP) screening documented in this encounter [facility]* Diagnosis Diabetes mellitus screening Screening for diabetes mellitus Second trimester ([facility]HS-HCC) state, incidental 23 weeks gestation of ([facility]) documented in this encounter [facility] note* Diagnosis Size of fetus [...] be sent through Care Everywhere. * Depression ([place] Islander) documented in this encounterPark[facility] SystemInstructionsNot on file documented in [facility] SystemInst[facility]* Attachments The following attachments cannot be sent through Care Everywhere. * Acid Reflux and GERD in Adults Discharge Instructions ([place] Islander) documented in [facility]Park[facility] System[facility]* Attachments The following attachments cannot be sent through Care Everywhere. * Nausea and Vomiting, Adult ([place] Islander) documented in [facility] Summary Purpose Family History Relationship [...] CREATED AUTHOR AUTHOR'S ORGANIZ ATION 02/28/2024 [facility] DATE CREATED AUTHOR AUTHOR'S ORGANIZ ATION 03/13/2024 [facility] DATE CREATED AUTHOR AUTHOR'S ORGANIZ ATION 07/12/2025 [facility] d[facility] Specialists [facility] Care Teams (unrecognized sec tion and content) [...] July 03, 2024 End: July 03, 2024 Manager Operations And Procurement Relationship Specialty Start Date End Date Radha Calix PA [address] [place] [address] PCP - MANDEEP Ortiz [facility] 05/14/24 Manager Operations And Procurement Relationship Specialty Start Date End Date Radha Calix PA [address] [place] [address] PCP - MANDEEP Ortiz [facility] 05/14/24 Manager Operations And Procurement Relationship Specialty Start Date End Date Matt Sandra APRN-DISH PERSON [address] [place] [address] PCP - General Family Medicine 10/16/19 Manager Operations And Procurement Relationship Specialty Start Date End Date Matt Sandra APRN-DISH PERSON [address] [place] [address] PCP - General Family Medicine 10/16/19 Manager Operations And Procurement Relationship Specialty Start Date End Date Matt Sandra APRN-DISH PERSON [address] [place] [address] PCP - General Family Medicine 10/16/19 Manager Operations And Procurement Relationship Specialty Start Date End Date Radha Calix PA PCP - [facility] [place] [facility] 05/14/24 Manager Operations And Procurement Relationship Specialty Start Date End Date Radha Calix PA PCP - [facility] [place] [facility] 05/14/24 Manager Operations And Procurement Relationship Specialty Start Date End Date Radha Calix PA PCP - [facility] [place] [facility] 05/14/24 Manager Operations And Procurement Relationship Specialty Start Date End Date Radha Calix PA PCP - [facility] [place] [facility] 05/14/24 Manager Operations And Procurement Relationship Specialty Start Date End Date Radha Calix PA PCP - [facility] [place] [facility] 05/14/24 Manager Operations And Procurement Relationship Specialty Start Date End Date Radha Calix PA PCP [facility] [place] [facility] 05/14/24 Manager Operations And Procurement Relationship Specialty Start Date End Date Radha Calix PA PCP - [facility] [place] [facility] 05/14/24 Manager Operations And Procurement Relationship Specialty Start Date End Date Radha Calix PA PCP [facility] [place] [facility] 05/14/24 Manager Operations And Procurement Relationship Specialty Start Date End Date Radha Calix PA PCP [facility] [place] [facility] 05/14/24 Manager Operations And Procurement Relationship Specialty Start Date End Date Radha Calix PA PCP - [facility] [place] [facility] 05/14/24 Goals (unrecognized section and content) Goals [...] BE BASED ON THE PRIMARY CLINICAL RECORDS. [facility]. provides no warranty or guarantee of the accuracy or completeness of information in this document.
[2025-07-24 10:15] VITALS: BP 131/77; PULSE 102
== END 2025-07-24 10:45 | disposition home or self-care (01) ==
LOC: US 09:59 → FBC 10:01
PROVIDERS: PCP Nurse Practitioner; Visit Provider Nurse Practitioner Family
DX: O36.63X0 Maternal care for excessive fetal growth, third trimester, not applicable or unspecified (principal); Z3A.35 35 weeks gestation of pregnancy
CPT/HCPCS: 76818

== ENCOUNTER 2025-07-27 10:06 | Outpatient (OUT) | payer MEDICAID, SELFPAY ==
--- OUTSIDE RECORDS SUMMARY | 2025-07-27 10:08 | XMS_ITS | Encounter Summary ---
Author Organization [employer] Address [id number] [place] [address] Care Team Providers Care Cash Processor Name Role Phone Fabiana Sandra APRN-CHANNEL LIP STIFFENER INSOLES Primary Care Provid er Encounter Details Date Type Department Care Team (Late st Contact Info) Description 07/05/2024 Orders Only [facility] - Family Medicine [address] [place] [address] Ellie Ruvalcaba CMA Epigastric pain; Right upper [...] often do you attend chur ch or nondenominational services? Never 10/15/2021 Do you belong to any clubs o r organizations such as tenriism groups, unions, fraternal or athletic groups, or [...] Answer Date Recorded Total Score 0 03/12/2024 [facility] [place] of Occupat ional Health - Occupational Stress [...] Recorded Do you need help finding a [facility] career center and/or a training [...] documented as of this encounter Care Teams Cash Processor Relationship Specialty Start Date End Date Fabiana Sandra APRN-CNP PCP - General Family Medicine 10/16/19 documented as of this encounter
--- OUTSIDE RECORDS SUMMARY | 2025-07-27 10:08 | XMS_ITS | Encounter Summary ---
Author Organization [facility] Address [address] [facility] [place] [address] Care Team Providers Care Morphology Teacher Name Role Phone Yogi Radha HERNANDEZ Unavailable Encounter Details Date Type Department Care Team (Late Contact Info) Description 12/24/2024 Orders Only MANDEEP HERNANDEZ [address] [place] [address] Ophelia Barros LPN [address] [facility] [address], [place] [address] Social History Tobacco Use Types Packs/Day Years [...] Care Team (Late Contact Info) Description 07/29/2025 11:00 AM EDT Ancillary Procedure MANDEEP HERNANDEZ [address] [place] [address] 07/29/2025 11:30 AM EDT Routine MANDEEP HERNANDEZ [address] [place] [address] Henok Lopez DO [address] [facility] [address] [place]ño, [id number] 08/05/2025 10:50 AM EDT Routine [facility] HERNANDEZ [address] [facility] [place] [address] Henok Lopez, DO [address] [facility] [place] [address] [place] [address] 12/16/2025 2:00 PM EST Office Visit MANDEEP HERNANDEZ [address] [facility] [place] [address] Henok Lopez, DO [address] [facility] [address] [place], [place] [id number] documented as of this encounter Procedures Procedure [...] on filedocumented in this encounter Care Teams Morphology Teacher Relationship Specialty Start Date End Date Radha Calix PA PCP - [facility] [place] PHYSICIAN UNDERWRITER 05/14/24 documented as of this encounter
--- OUTSIDE RECORDS SUMMARY | 2025-07-27 10:08 | XMS_ITS | Encounter Summary ---
Author Organization [facility] Address [address] [facility] [place] [address] Care Team Providers Care Medical Technologist Blood Bank Name Role Phone CalixRadha Unavailable Encounter Details Date Type Department Care Team (Late Contact Info) Description 05/31/2025 Abstract MANDEEP HERNANDEZ [address] [place] [address] Henok Lopez DO [address] [place] [address] Sunita Martinez, [facility] Social History Tobacco Use Types Packs/Day Years [...] 11:00 AM EDT Ancillary Procedure MANDEEP HERNANDEZ [facility] [place] [address] 07/29/2025 11:30 AM EDT Routine MANDEEP HERNANDEZ [address] [place] [address] Henok Lopez DO [address] [place] [address] 08/05/2025 10:50 AM EDT Routine NOMRuth HERNANDEZ [address] [facility] [place] [address] Henok Lopez, DO [address] [facility] [address] [place], [place] [id number] 12/16/2025 2:00 PM EST Office Visit NOMRuth HERNANDEZ [address] [facility] [place] [address] Henok Lopez, DO [address] [facility] [place] [address] documented as of this encounter Visit Diagnoses Not on filedocumented in this encounter Care Teams Medical Technologist Blood Bank Relationship Specialty Start Date End Date Radha Calix PA PCP - [facility] [place] WRECKING MECHANIC 05/14/24 documented as of this encounter
--- OUTSIDE RECORDS SUMMARY | 2025-07-27 10:08 | XMS_ITS | Clinical Summary ---
Author Organization [facility] Address [address] [facility] [place] [address] Care Team Providers Care Associate Professor Of Radiology Name Role Phone Radha Calix Unavailable [phone] Allergies Active Allergy Reactions Criticality Noted [...] Encounters Date Type Department Care Team Description 07/25/2025 Abstract [facility] Michelle HERNANDEZ [address] [place] [address] Henok Lopez, 07/25/2025 Abstract [facility] Michelle OBGYN An[address] [facility] [place] [address] Henok Lopez, 07/24/2025 Clinisync Result Encounter NOMS External Department Unsolicited Jo Ann Patino NP 07/17/2025 Clinisync Result Encounter NOMS External Department Unsolicited Jo Ann Patino, SHUTTLE FIXER 07/10/2025 2:10 PM EDT Routine [facility] [place] [address] Henok Lopez, Excessive growth affecting management of in third trimester, single or unspecified fetus ([facility]) (Primary Dx); Third trimester ([facility]); 33 weeks gestation of ([facility]-HCC); Hematuria, unspecified type 07/10/2025 1:30 PM EDT Ancillary Procedure [facility] Michelle BRADLEYGYN An[address] [facility] [place] [address] Excessive growth affecting management of , antepartum, single or unspecified fetus ([facility]-HCC) 06/26/2025 1:30 PM EDT Routine [facility] Michelle BRADLEYGYN [place] [address] Josi Cardoza PA Third trimester ([facility]HS-HCC); 31 weeks gestation of ([facility]-HCC) 06/26/2025 Bamboo flowsheet [facility] Michelle OBGYN [address] [facility] [place] [address] Josi Cardoza PA 06/11/2025 2:00 PM EDT Routine [facility] Michelle OBGYN An[address] [facility] [place] [address] Henok Lopez, Third trimester ([facility]-HCC); 29 weeks gestation of ([facility]-HCC); Anemia affecting in third trimester ([facility]-HCC); Excessive growth affecting management of , antepartum, single or unspecified fetus ([facility]) 06/11/2025 1:30 PM EDT Ancillary [place] [address] Size of fetus inconsistent with dates in second trimester ([facility]) 05/31/20[place] [address] Henok Lopez DO 05/29/2025 1:20 [place] [address] Josi Cardoza, DAVID Size of fetus inconsistent with dates in second trimester ([facility]) (Primary Dx); Second trimester ([facility]); 27 weeks gestation of ([facility]) 05/29/2025 Clinisync Result Encounter NOMS External Department Unsolicited Henok Lopez DO 05/09/2025 Patient Outreach [facility] [address] [place] [address] Josi Vizcaino LPN 05/07/2025 Abstract [facility] [address] [place] [address] Josi Vizcaino LPN 05/02/2025 8:50 [place] [address] Henok Lopez DO Diabetes mellitus screening; Second trimester ([facility]); 23 weeks gestation of ([facility]) 05/02/2025 [place] [address] Henok Lopez DO from Last 3 Months [...] Team (Late st Contact Info) Description 07/29/2025 11:00 AM EDT Ancillary Procedure NOMRuth HERNANDEZ [address] [place] [address] [place] [address] 07/29/2025 11:30 AM EDT Routine NOMRuth HERNANDEZ [address] [place] [address] [place] [address] Henok Lopez DO [address] [place], [place] [address] [address] 08/05/2025 10:50 AM EDT Routine NOMRuth HERNANDEZ [address] [place] [place] [address] Henok Lopez DO [address] [place] [address] 12/16/2025 2:00 PM [place] [address] Henok Lopez, DO [address] [place] [address] Dr Alina Pettit [place] [phone] Health Maintenance Due Date Last Done Comments Influenza Vaccine (#1) 2025 Procedures Procedure Name Priority Date/Time Associated Diagnosis Comments US OB BPP W NON-STRESS 07/24/2025 11:09 AM EDT US OB BPP W NON-STRESS 07/17/2025 3:34 [...] Results * US OB BPP W NON-STRESS (07/24/2025 11:09 AM EDT) Only the most recent of2 resultswithin the time period is included. Anatomical Region Laterality Modality Other 07/24/2025 11:0 9 AM EDT Narrative 07/24/2025 11:11 [place] [address] Ultrasound Report Signed Patient: TARA BRUNO MR#: [id number] : 1995 Acct:[id number] Age/Sex: 30 / F ADM Date: 07/24/25 Loc: US Attending Dr: Jo Ann Patino Ordering Physician: Jo Ann Patino Date of Service: 07/24/25 Procedure(s): US OB BPP w non-stress Accession Number(s): [id number] cc: MATT BRODERICK ; Jo Ann Patino [place] [address] Patient Name: TARA BRUNO MRN: [id number] date: 1995 Sex: F Assigned Patient Location: [facility] Current Patient Location: Accession/Order Number: [id number] Exam Date: 07/24/2025 10:02 Report Date: 07/24/2025 11:09 At the request of: JO ANN PATINO Procedure: US OB BPP w non-stress BIOPHYSICAL PROFILE: CLINICAL INFORMATION: Excessive growth COMPARISON: 07/17/2025 There is a single live intrauterine gestation in cephalic presentation. The reported gestational age is 35 weeks 3 days. The heart rate [id number] beats per minute. FINDINGS: TONE: 1 or more episodes of activity extension and flexion of extremity or opening and closing of the hand [Y] 2/2 GROSS BODY MOVEMENTS: 3 or more discrete body or limb movements [Y] 2/2 BREATHING MOVEMENTS: 1 or more episodes of breathing lasting at least 30 seconds [Y] 2/2 BENNETT: A single deepest vertical pocket of amniotic fluid greater than 2 cm [Y] 2/2 BENNETT: 18.2 cm. This is in upper normal range. Total score: 8/8 US/US OB BPP w non-stress IMPRESSION: NORMAL BIOPHYSICAL PROFILE Impression dictated by: Audrey Kuo M.D. 07/24/2025 11:09 AM Dictation Location: [place] [address] Electronically authenticated by: [id number] Y Date: 07/24/2025 11:09 Dictated By: Audrey Kuo M.D. Signed By: 07/24/25 1111 DD/ 1109 TD/TT: Steam Fitter Helper: Procedure Note Radiology, Radiologist, MD - 07/24/2025 [place] [address] Ultrasound Report Signed Patient: TARA BRUNO AMR#: [id number] : 1995Acct:[id number] Age/Sex: 30 / FADM Date: 07/24/25 Loc: US Attending Dr: Jo Ann Patino Ordering Physician: Jo Ann Patino Date of Service: 07/24/25 Procedure(s): US OB BPP w non-stress Accession Number(s): [id number] cc: MATT BRODERICK Kristina The [address] [address] Patient Name: TARA BRUNO MRN: [id number] date: 1995 Sex: F Assigned Patient Location: [facility] Current Patient Location: Accession/Order Number: [id number] Exam Date: 07/24/2025 10:02 Report Date: 07/24/2025 11:09 At the request of: JO ANN PATINO Procedure: US OB BPP w non-stress BIOPHYSICAL PROFILE: CLINICAL INFORMATION: Excessive growth COMPARISON: 07/17/2025 There is a single live intrauterine gestation in cephalic presentation.The reported gestational age is 35 weeks 3 days. The heart [id number] beats per minute. FINDINGS: TONE: 1 or more episodes of activity extension and flexion of extremity or opening and closing of the hand [Y] 2/2 GROSS BODY MOVEMENTS: 3 or more discrete body or limb movements [Y] 2/2 BREATHING MOVEMENTS: 1 or more episodes of breathing lastingat least 30 seconds [Y] 2/2 BENNETT: A single deepest vertical pocket of amniotic fluid greater than 2 cm [Y] 2/2 BENNETT: 18.2 cm. This is in upper normal range. Total score: 8/8 US/US OB BPP w non-stress IMPRESSION: NORMAL BIOPHYSICAL PROFILE Impression dictated by: Audrey Kuo M.D. 07/24/2025 11:09 AM Dictation Location: [employer] Electronically authenticated by: [id number] Y Date: 1:09 Dictated By: Audrey Kuo M.D. Signed By:07/24/25 1111 DD/ 1109 TD/TT: Steam Fitter Helper: Jo Ann Patino SHUTTLE FIXER [facility] Final Resul t * (ABNORMAL) [...] - Positive Urine 07/10/2025 2:19 PM EDT Henok John DO POINT OF CARE TEST [...] SIGNED BY: Aaron Calzada MD us Henok Lopez DO IMG OB US PROCEDURES Final Resul t * GLUCOSE 1 HOUR (05/29/2025 11:24 AM EDT) GLUCOSE 1 HOUR 129 <130 mg/dL [facility] 05/29/2025 11:2 4 AM EDT 05/29/2025 11:25 AM EDT Narrative [facility] - 05/29/2025 11:40 AM EDT us Henok John DO LAB BLOOD ORDERABLES Final Resul t [facility] * (ABNORMAL) ALL CBC WITH AUTO DIFF (05/29/2025 11:24 AM EDT) [facility] WBC 9.7 4.0 - 11.0 10 3/uL [...] AM EDT 05/29/2025 11:25 AM EDT Narrative [facility] - 05/29/2025 11:38 AM EDT Henok Lopez DO [facility] Final Result [facility] from Last 3 Months [facility] [place] Care Teams Associate Professor Of Radiology Relationship Specialty Start Date End Date Radha Calix PA PCP - MANDEEP Ortiz UNLOAD ASSOCIATE 05/14/24
--- OUTSIDE RECORDS SUMMARY | 2025-07-27 10:08 | XMS_ITS | Clinical Summary ---
Author Organization [facility] Address [id number] [address] [place] [address] Care Team Providers Care Firewood Cutter Name Role Phone Fabiana Sandra APRN-JOURNEYMAN LINEMAN Primary Care Provid er Allergies Active Allergy [...] often do you attend chur ch or temple services? Never 10/15/2021 Do you belong to [...] Answer Date Recorded Total Score 0 03/12/2024 [facility] of Occupat ional Health - Occupational Stress [...] Recorded Do you need help finding a [facility] and/or a training program? No 10/15/2021 [...] Narrative COPATH - 08/21/2018 12:43 PM EDT [facility] [address] [place] [address] Gynecologic Cytology Consultation Patient Name: TARA ISLAS : 1995 (Age: 23) Gender: F Taken: 08/09/2018 Reported: 08/21/2018 Physician(s): Sarabjit Odom M.D. Copy To: [facility]. Rec. #: [id number] Acct: # [id number] Final Cytologic Interpretation Cervical (with or without endocervical) ThinPrep: Satisfactory for evaluation. A transformation zone component is present. NEGATIVE FOR INTRAEPITHELIAL LESION OR MALIGNANCY. lvt/08/21/2018 Interpretation performed at [facility], [address] [place] [address], License number: [id number]. Electronically Signed Out By HARJEET Cruz(ASCP) Date of Last Menstrual Period: 06/14/18 Other Clinical Conditions: z12.4 Screenings for malignant neoplasm of cervix z87.898 Hx of abnormal cervical pap smear Previous abnormal pap Hormone replacement therapy Previous treatment: Colposcopy and LEEP Previous cytology: HSIL, YVETTE II - III Source of Specimen Cervical (with or without endocervical) ThinPrep Thin Prep Pap (PAPER PATTERN FOLDER) Fee Code(s): G0145 The Pap test is a screening test with an inherent, but low, probability of error. The Pap test is primarily effective for the diagnosis and prevention of squamous cell carcinoma. Regular screening is critical for prevention. ThinPrep liquid-based slides, which meet the Firm Administrator criteria for automated screening, have been screened by the ThinPrep Imaging System (as of 07/31/07) along with an additional manual rescreening by a sausage cooker and, if indicated, by a pathologist.Sarabjit Odom M.D. 08/14/2018 Sarabjit Odom MD PATHOLOGY/CYTOLOGY ORDERABLES Final Result COPATH from Last 3 Months or Most Recently Relevant to Health Maintenance Insurance [employer] Member Subscriber Plan / Payer (Ef fective 2022-Present) Name:Tara Islas Relation to Subscriber:Self Name:Tara Islas Payer ID:Not on file Group ID:[id number] Type:Not on file Address: [facility] [id number] [place] [id number] Care Teams Firewood Cutter Relationship Specialty Start Date End Date Fabiana Sandra, SHOP LEAD-JOURNEYMAN LINEMAN PCP - General Family Medicine 10/16/19
--- OUTSIDE RECORDS SUMMARY | 2025-07-27 10:08 | XMS_ITS | Encounter Summary ---
Author Organization [facility] Address [id number] [place] [address] Care Team Providers Care Property Management Supervisor Name Role Phone Fabiana Sandra Primary Care Provid er Encounter Details Date Type Department Care Team (Late st Contact Info) Description 09/14/2017 Telephone [facility] [address] [place] [address] Sarabjit Odom MD [facility] [place], [place] [id number] Social History Tobacco Use Types Packs/Day Years [...] on filedocumented in this encounter Care Teams Property Management Supervisor Relationship Specialty Start Date End Date Fabiana Sandra APRN-CNP PCP - General Family Medicine 10/16/19 documented as of this encounter
--- OUTSIDE RECORDS SUMMARY | 2025-07-27 10:08 | XMS_ITS | Encounter Summary ---
Author Organization [facility] Address [id number] [place] [address] Care Team Providers Care Hand Sander Name Role Phone Fabiana Sandra APRN-PHYSICAL OPTICS TEACHER Primary Care Provid er Encounter Details Date Type Department Care Team (Late st Contact Info) Description 04/15/2025 Orders Only [facility] - Family Medicine [address] [place] [address] Ref Prov, [place] [address] Social History Tobacco Use Types Packs/Day Years [...] often do you attend chur ch or yazidism services? Never 10/15/2021 Do you belong to any clubs o r organizations such as yazdanism groups, unions, fraternal or athletic groups, or [...] Answer Date Recorded Total Score 0 03/12/2024 [facility] of Occupat ional Health - Occupational Stress [...] documented as of this encounter Care Teams Hand Sander Relationship Specialty Start Date End Date Fabiana Sandra, KIM-PHYSICAL OPTICS TEACHER PCP - General Family Medicine 10/16/19 documented as of this encounter
--- OUTSIDE RECORDS SUMMARY | 2025-07-27 10:08 | XMS_ITS | Encounter Summary ---
Author Organization [facility] Address [id number] [address] [place] [address] Care Team Providers Care Tunnel Heading Supervisor Name Role Phone Fabiana Sandra APRN-LINK FABRIC MACHINE OPERATOR Primary Care Provid er Reason for Visit * Reason Comments Med Refill Encounter Details Date Type Department Care Team (Late st Contact Info) Description 08/09/2023 Refill [facility] - Family Medicine [address] [place] [address] Fabiana Sandra APRN-LINK FABRIC MACHINE OPERATOR [address] [place] [address] Anxiety and depression Social History Tobacco Use [...] often do you attend chur ch or baptist services? Never 10/15/2021 Do you belong to any clubs o r organizations such as mormonism groups, unions, fraternal or athletic groups, or [...] Answer Date Recorded Total Score 0 04/27/2022 [facility] of Occupat ional Health - Occupational [...] Recorded Do you need help finding a [facility] career center and/or a training program? [...] documented as of this encounter Care Teams Tunnel Heading Supervisor Relationship Specialty Start Date End Date Fabiana Sandra, COMMUNICATION LECTURER-LINK FABRIC MACHINE OPERATOR PCP - General Family Medicine 10/16/19 documented as of this encounter
--- OUTSIDE RECORDS SUMMARY | 2025-07-27 10:08 | XMS_ITS | Encounter Summary ---
Author Organization [facility] Address [address] [place] [address] Care Team Providers Care Sack Maker Name Role Phone CalixRadha Unavailable [phone] Encounter Details Date Type Department Care Team (Late st Contact Info) Description 07/24/2025 Clinisync Result Encounter NOMS External Department Unsolicited Jo Ann Patino, HIGHWAY PATROL COMMANDER [address] [place] [address] Social History Tobacco Use Types Packs/Day Years [...] Description 07/29/2025 11:00 AM EDT Ancillary Procedure [facility] Michelle HERNANDEZ [address] [place] [address] 07/29/2025 11:30 AM EDT Routine [facility] Michelle HERNANDEZ [address] [place] [address] Henok Lopez DO [address] [place], [facility] 08/05/2025 10:50 AM EDT Routine NOMRuth Michellenikki HERNANDEZ [address] [place] [address] [place] [address] Henok Lopez, DO [address] [place] [address] 12/16/2025 2:00 PM EST Office Visit NOMRuth HERNANDEZ [address] [place] [address] [place] [address] Henok Lopez, DO [address] [place], [place] [id number] documented as of this encounter Procedures Procedure Name Priority Date/Time Associated Diagnosis Comments US OB BPP W NON-STRESS 07/24/2025 11:09 AM EDT documented in this encounter Results * US OB BPP W NON-STRESS (07/24/2025 11:09 AM EDT) Anatomical Region Laterality Modality Other 07/24/2025 11:0 9 AM EDT Narrative 07/24/2025 11:11 AM EDT [address] [address] Ultrasound Report Signed Patient: TARA ISLAS MR#: [id number] : 1995 Acct:[id number] Age/Sex: 30 / F ADM Date: 07/24/25 Loc: US Attending Dr: Jo Ann Patino Ordering Physician: Jo Ann Patino Date of Service: 07/24/25 Procedure(s): US OB BPP w non-stress Accession Number(s): [id number] cc: MATT BRODERICK ; Jo Ann Patino The [address] [address] Patient Name: TARA ISLAS MRN: [facility]:[id number] date: 1995 Sex: F Assigned Patient Location: [facility] Current Patient Location: Accession/Order Number: [id number] Exam Date: 07/24/2025 10:02 Report Date: 07/24/2025 11:09 At the request of: JO ANN PATINO Procedure: US OB BPP w non-stress BIOPHYSICAL PROFILE: CLINICAL INFORMATION: Excessive growth COMPARISON: 07/17/2025 There is a single live intrauterine gestation in cephalic presentation. The reported gestational age is 35 weeks 3 days. The heart rate [id number] beats per minute. FINDINGS: TONE: 1 or [...] Kuo M.D. 07/24/2025 11:09 AM Dictation Location: [place] [address] Electronically authenticated by: [id number] Y Date: 07/24/2025 11:09 Dictated By: Audrey Kuo M.D. Signed By: 07/24/25 1111 DD/ 1109 TD/TT: Support Clerk: Procedure Note Radiology, Radiologist, - 07/24/2025 [place] [address] Ultrasound Report Signed Patient: TARA ISLAS AMR#: [id number] : 1995Acct:[id number] Age/Sex: 30 / FADM Date: 07/24/25 Loc: US Attending Dr: Jo Ann Patino Ordering Physician: Jo Ann Patino Date of Service: 07/24/25 Procedure(s): US OB BPP w non-stress Accession Number(s): [id number] cc: MATT BRODERICK Kristina [place] [id number] Patient Name: TARA ISLAS MRN: [id number] date: 1995 Sex: F Assigned Patient Location: [facility] Current Patient Location: Accession/Order Number: [id number] Exam Date: 07/24/2025 10:02 Report Date: 07/24/2025 11:09 At the request of: JO ANN PATINO Procedure: US OB BPP w non-stress BIOPHYSICAL PROFILE: CLINICAL INFORMATION: Excessive growth COMPARISON: 07/17/2025 There is a single live intrauterine gestation in cephalic presentation.The reported gestational age is 35 weeks 3 days. The heart [id number] beats per minute. FINDINGS: TONE: 1 or [...] Kuo M.D. 07/24/2025 11:09 AM Dictation Location: [place] [address] Electronically authenticated by: [id number] Y Date: 1:09 Dictated By: Audrey Kuo M.D. Signed By:07/24/25 1111 DD/ 1109 TD/TT: Support Clerk: Jo Ann Patino HIGHWAY PATROL COMMANDER [facility] Final Resul t documented in this encounter Visit Diagnoses Not on filedocumented in this encounter Care Teams Sack Maker Relationship Specialty Start Date End Date Radha Calix PA PCP - [facility] Diana FRUIT AND VEGETABLE PACKER 05/14/24 documented as of this encounter
--- OUTSIDE RECORDS SUMMARY | 2025-07-27 10:08 | XMS_ITS | Encounter Summary ---
Author Organization [facility] Address [address] [place] [address] Care Team Providers Care Bankruptcy Legal Assistant Name Role Phone CalixRadha Unavailable [phone] Encounter Details Date Type Department Care Team (Late Contact Info) Description 07/25/2025 Abstract MANDEEP HERNANDEZ [address] [place] [address] Henok Lopez DO [address] [place] [address] Sun[place], [facility] Social History Tobacco Use Types Packs/Day [...] 11:00 AM EDT Ancillary Procedure MANDEEP HERNANDEZ [facility] [place] [address] 07/29/2025 11:30 AM EDT Routine MANDEEP HERNANDEZ [address] [facility] [place] [address] Henok Lopez DO [address] [place] [address] 08/05/2025 10:50 AM EDT Routine NOMRuth HERNANDEZ [address] [facility] [address] Heonk Lopez, DO [address] [facility] [address] [place] [place], [place] [address] 12/16/2025 2:00 PM EST Office Visit NOMRuth HERNANDEZ [address] [facility] [address] Henok Lopez, DO [address] [facility] [place] [address] documented as of this encounter Visit Diagnoses Not on filedocumented in this encounter Care Teams Bankruptcy Legal Assistant Relationship Specialty Start Date End Date Radha Calix PA PCP - [facility] Diana GEOSPATIAL PROGRAM MANAGEMENT OFFICER 05/14/24 documented as of this encounter
--- OUTSIDE RECORDS SUMMARY | 2025-07-27 10:08 | XMS_ITS | Encounter Summary ---
Author Organization [facility] Address [address] [facility] [place] [address] Care Team Providers Care Life Insurance Agent Name Role Phone Radha Calix Unavailable Encounter Details Date Type Department Care Team (Late st Contact Info) Description 05/07/2025 Abstract [facility] [address] [place] [address] Josi Vizcaino, BETHEL [address] [place] [address] Social History Tobacco Use Types Packs/Day Years [...] 11:00 AM EDT Ancillary Procedure NOMRuth HERNANDEZ [address] [place] [address] 07/29/2025 11:30 AM EDT Routine NOMRuth HERNANDEZ [address] [place] [address] Henok Lopez DO [address] [place] [address] 08/05/2025 10:50 AM EDT Routine NOMRuth HERNANDEZ [address] [facility] [place] [address] Henok Lopez, DO [address] [facility] [place] [address] 12/16/2025 2:00 PM EST Office Visit MANDEEP HERNANDEZ [address] [facility] [place] [address] Henok Lopez, DO [address] [facility] [place] [address] documented as of this encounter Visit Diagnoses Not on filedocumented in this encounter Care Teams Life Insurance Agent Relationship Specialty Start Date End Date Radha Calix PA PCP - [facility] [place] GAMING DIRECTOR 05/14/24 documented as of this encounter
--- OUTSIDE RECORDS SUMMARY | 2025-07-27 10:08 | XMS_ITS | Encounter Summary ---
Author Organization [facility] Address [address] [facility] [place] [address] Care Team Providers Care Director Smb Sales Name Role Phone Radha Calix Unavailable Encounter Details Date Type Department Care Team (Late st Contact Info) Description 04/04/2025 Results Follow-Up MANDEEP [place] OBGYFany [address] [employer] [address] [place] [address] Hemalatha Fatima LPN [address] [employer] [place] [phone] RECURRENT VAGINITIS (HTRX) Social History Tobacco Use [...] 07/29/2025 11:00 AM EDT Ancillary Procedure [facility] [address] [facility] [place] [address] 07/29/2025 11:30 AM EDT Routine NOMS Michelle OBGYN [address] [place] [address] [place] [address] Henok Lopez, DO [address] [facility] [place] [address] 08/05/2025 10:50 AM EDT Routine NOMS Michelle OBGYN [address] [place] [address] [place] [address] Henok Lopez, DO [address] [facility] [place] [address] 12/16/2025 2:00 PM EST Office Visit NOMRuth [place] [facility]BMOR[facility]ES [address] [place] [address] [place] [address] Henok Lopez, DO [address] [facility] [place] [address] documented as of this encounter Visit Diagnoses Not on filedocumented in this encounter Care Teams Director Smb Sales Relationship Specialty Start Date End Date Radha Calix PA PCP - [facility] Diana DIET COUNSELOR 05/14/24 documented as of this encounter
--- OUTSIDE RECORDS SUMMARY | 2025-07-27 10:08 | XMS_ITS | Encounter Summary ---
Author Organization [employer] Address [id number] [address] [place] [address] Care Team Providers Care Medical Transcription Radiology Name Role Phone Fabiana Sandra APRN-GLUE PLANT OPERATOR Primary Care Provid er Encounter Details Date Type Department Care Team (Late st Contact Info) Description 03/15/2024 Telephone [facility] Internal Medicine - Family Medicine [address] [facility] [facility] [place] [id number] Mikala Murphy CMA Social History Tobacco Use [...] Answer Date Recorded Total Score 0 03/12/2024 [facility] - Occupational [...] Recorded Do you need help finding a [facility] career center and/or a training [...] documented as of this encounter Care Teams Medical Transcription Radiology Relationship Specialty Start Date End Date Fabiana Sandra APRN-CNP PCP - General Family Medicine 10/16/19 documented as of this encounter
--- OUTSIDE RECORDS SUMMARY | 2025-07-27 10:08 | XMS_ITS | Encounter Summary ---
Author Organization [employer] Address [id number] [address] [place] [address] Care Team Providers Care Pencil Maker Name Role Phone Fabiana Sandra APRN-RECOVERY ROOM RN Primary Care Provid er Encounter Details Date Type Department Care Team (Late st Contact Info) Description 03/30/2024 Orders Only [facility] Internal Medicine - Family Medicine [address] [place] [address] External, Scanning Provider Social History Tobacco Use [...] often do you attend chur ch or baptism services? Never 10/15/2021 Do you belong to any clubs o r organizations such as denominational groups, unions, fraternal or athletic groups, or [...] Answer Date Recorded Total Score 0 03/12/2024 [facility] - Occupational Stress [...] Recorded Do you need help finding a [facility] career center and/or a training program? [...] documented as of this encounter Care Teams Pencil Maker Relationship Specialty Start Date End Date Fabiana Sandra APRN-RECOVERY ROOM RN PCP - General Family Medicine 10/16/19 documented as of this encounter
--- OUTSIDE RECORDS SUMMARY | 2025-07-27 10:08 | XMS_ITS | Encounter Summary ---
Author Organization [facility] Address [address] [place] [address] Care Team Providers Care Replenishment Merchandising Associate Name Role Phone CalixRadha Unavailable [phone] Encounter Details Date Type Department Care Team (Late Contact Info) Description 07/25/2025 Abstract MANDEEP HERNANDEZ [address] [place] [address] Henok Lopez DO [address] [place] [address] Sunita Martinez, [facility] Social History Tobacco Use Types Packs/Day Years [...] 11:00 AM EDT Ancillary Procedure MANDEEP HERNANDEZ [facility] [place] [address] 07/29/2025 11:30 AM EDT Routine MANDEEP HERNANDEZ [address] [place] [address] Henok Lopez DO [address] [place] [address] 08/05/2025 10:50 AM EDT Routine NOMRuth HERNANDEZ [address] [facility] [place] [address] Henok Lopez, DO [address] [facility] [address] [place], [place] [address] 12/16/2025 2:00 PM EST Office Visit NOMRuth HERNANDEZ [address] [place] [address] Henok Lopez, DO [address] [facility] [place] [address] documented as of this encounter Visit Diagnoses Not on filedocumented in this encounter Care Teams Replenishment Merchandising Associate Relationship Specialty Start Date End Date Radha Calix PA PCP - [facility] Diana WAITER/WAITRESS 05/14/24 documented as of this encounter
--- OUTSIDE RECORDS SUMMARY | 2025-07-27 10:08 | XMS_ITS | Encounter Summary ---
Author Organization [facility] Address [address] [place] [facility] [place] [address] Care Team Providers Care Fiberglass Fabricator Name Role Phone CalixRadha Unavailable [phone] Encounter Details Date Type Department Care Team (Late st Contact Info) Description 07/17/2025 Clinisync Result Encounter [facility] External Department Unsolicited Norm Patino, INSTRUMENT TECHNICIAN APPRENTICE [address] [facility] [place] [address] Social History Tobacco Use Types Packs/Day [...] EDT Ancillary Procedure [facility] Michelle HERNANDEZ [address] [place] [address] 07/29/2025 11:30 AM EDT Routine [facility] Michelle HERNANDEZ [address] [place] [address] Henok Lopez DO [address] Martinez, [facility] 08/05/2025 10:50 AM EDT Routine MANDEEP HERNANDEZ [address] [place] [address] [place] [address] Henok Lopez, DO [address] [facility] [place] [address] 12/16/2025 2:00 PM EST Office Visit MANDEEP HERNANDEZ [address] [facility] [place] [address] Henok Lopez, DO [address] [facility] [place] [address] documented as of this encounter Procedures Procedure Name Priority Date/Time Associated Diagnosis Comments US OB BPP W NON-STRESS 07/17/2025 3:34 PM EDT documented in this encounter Results * US OB BPP W NON-STRESS (07/17/2025 3:34 PM EDT) Anatomical Region Laterality Modality Other 07/17/2025 3:34 PM EDT Narrative 07/17/2025 3:37 PM EDT [address] [address] Ultrasound Report Signed Patient: TARA ISLAS MR#: [id number] : 1995 Acct:[id number] Age/Sex: 30 / F ADM Date: 07/17/25 Loc: [facility] 251-[address]: Norm Patino Ordering Physician: Norm Patino Date of Service: 07/17/25 Procedure(s): US OB BPP w non-stress Accession Number(s): [id number] cc: MATT BRODERICK ; Norm Patino [address] [address] Patient Name: TARA ISLAS MRN: [facility]:[id number] date: 1995 Sex: F Assigned Patient Location: [facility] Current Patient Location: [facility] Accession/Order Number: [id number] Exam Date: 07/17/2025 15:03 Report Date: 07/17/2025 15:34 At the request of: NORM PATINO Procedure: US OB BPP w non-stress Biophysical profile. Reason for exam: Excessive growth COMPARISON: None TECHNIQUE: Transabdominal imaging of the gravid uterus was obtained. FINDINGS: The it compliance manager reports a BPP of 8 out of 8. BENNETT is normal at 15.6 cm. heart rate 145 bpm. US/US OB BPP w non-stress IMPRESSION: BPP 8 out of 8. Impression dictated by: Aaron Acevedo Jr., D.O. 07/17/2025 3:34 PM Dictation Location: [place] [address] Electronically authenticated by: [id number] Y Date: 07/17/2025 15:34 Dictated By: Aaron Acevedo M.D. Signed By: 07/17/25 1537 DD/ 1534 TD/TT: Second Chef: Procedure Note Radiology, Radiologist, MD - 07/17/2025 [place] [address] Ultrasound Report Signed Patient: TARA ISLAS [facility]#: [id number] : 1995Acct:[id number] Age/Sex: 30 / FADM Date: 07/17/25 Loc: [facility] 251-[address]: Norm Patino Ordering Physician: Norm Patino Date of Service: 07/17/25 Procedure(s): US OB BPP w non-stress Accession Number(s): [id number] cc: MATT BRODERICK Kristina [facility] [place] [id number] Patient Name: TARA ISLAS MRN: [id number] date: 1995 Sex: F Assigned Patient Location: [facility] Current Patient Location: [facility] Accession/Order Number: [id number] Exam Date: 07/17/2025 15:03 Report Date: 07/17/2025 15:34 At the request of: NORM PATINO Procedure: US OB BPP w non-stress Biophysical profile. Reason for exam: Excessive growth COMPARISON: None TECHNIQUE: Transabdominal imaging of the gravid uterus was obtained. FINDINGS: The it compliance manager reports a BPP of 8 out of 8. BENNETT is normal at15.6 cm. heart rate 145 bpm. US/US OB BPP w non-stress IMPRESSION: BPP 8 out of 8. Impression dictated by: Aaron Acevedo Jr., D.O. 07/17/2025 3:34 PM Dictation Location: [place] [address] Electronically authenticated by: [id number] Y Date: 5:34 Dictated By: Aaron Acevedo M.D. Signed By:07/17/25 1537 DD/ 1534 TD/TT: Second Chef: us Norm Patino INSTRUMENT TECHNICIAN APPRENTICE [facility] Final Resul t documented in this encounter Visit Diagnoses Not on filedocumented in this encounter Care Teams Fiberglass Fabricator Relationship Specialty Start Date End Date Radha Calix PA PCP - MANDEEP Ortiz INSTRUMENT TECHNICIAN APPRENTICE 05/14/24 documented as of this encounter
--- OUTSIDE RECORDS SUMMARY | 2025-07-27 10:08 | XMS_ITS | Encounter Summary ---
Author Organization [facility] Address [address] [place] [address] Care Team Providers Care Board Mixer Tender Name Role Phone CalixRadha Unavailable Encounter Details Date Type Department Care Team (Late Contact Info) Description 02/07/2025 Abstract MANDEEP HERNANDEZ [address] [place] [address] Henok Lopez DO [address] [place], [place] [address]Mary Martinez, [facility]11 Social History Tobacco Use Types Packs/Day [...] 11:00 AM EDT Ancillary Procedure MANDEEP HERNANDEZ [facility] [place] [address] 07/29/2025 11:30 AM EDT Routine MANDEEP HERNANDEZ [address] [facility] [place] [place] [address] Henok Lopez DO [address] [place] [address] 08/05/2025 10:50 AM EDT Routine NOMRuth HERNANDEZ [address] [facility] [place] [phone] Henok Lopez, DO [address] [facility] [address] [place], [place] [phone] 12/16/2025 2:00 PM EST Office Visit NOMRuth HERNANDEZ [address] [facility] [place] [address] Henok Lopez, DO [address] [facility] [place] [address] documented as of this encounter Visit Diagnoses Not on filedocumented in this encounter Care Teams Board Mixer Tender Relationship Specialty Start Date End Date Radha Calix PA PCP - [facility] Diana STEAM TABLE WORKER 05/14/24 documented as of this encounter
--- OUTSIDE RECORDS SUMMARY | 2025-07-27 10:08 | XMS_ITS | Encounter Summary ---
Author Organization [employer] Address [id number] [address] [place] [address] Care Team Providers Care Wig Sales Consultant Name Role Phone Fabiana Sandra Primary Care Provid er Encounter Details Date Type Department Care Team (Late st Contact Info) Description 05/08/2018 Refill [facility] Obstetrics/Gynecology [address] [place] [address] Clari Slaughter MA Social History Tobacco [...] on filedocumented in this encounter Care Teams Wig Sales Consultant Relationship Specialty Start Date End Date Fabiana Sandra APRN-COOK MANAGER PCP - General Family Medicine 10/16/19 documented as of this encounter
--- OUTSIDE RECORDS SUMMARY | 2025-07-27 10:09 | XMS_ITS | CCD ---
Author Organization [facility] Care Team Providers Care Reading Intervention Teacher Name Role Phone JOHN, DR TRAN Admitting [...] Primary Care Unavailable Radha Dickerson Unavailable Sandra CRAFT 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LIFT BUILDER WHOLE, Matt J Primary Care Provid er Radha [...] (1 source) Cephalexin Drug Allergy 2 [facility] (20 sources) Cephalexin; Translations: [CEPHALEXIN] Drug [...] Facility US OB BPP W NON-STRESS on 07-24-2025 [place] [address] Ultrasound Report Signed Patient: TARA BRUNO MR#: [id number] : 1995 Acct:[id number] Age/Sex: 30 / F ADM Date: 07/24/25 Loc: US Attending Dr: Jo Ann Patino Ordering Physician: Jo Ann Patino Date of Service: 07/24/25 Procedure(s): US OB BPP w non-stress Accession Number(s): [id number] cc: MATT SANDRA ; Jo Ann Patino [place] [id number] Patient Name: TARA BRUNO MRN: [id number]:[id number] date: 1995 Sex: F Assigned Patient Location: [facility] Current Patient Location: Accession/Order Number: [id number] Exam Date: 07/24/2025 10:02 Report Date: 07/24/2025 11:09 At the request of: JO ANN PATINO Procedure: US OB BPP w non-stress BIOPHYSICAL PROFILE: CLINICAL INFORMATION: Excessive growth COMPARISON: 07/17/2025 There is a single live intrauterine gestation in cephalic presentation. The reported gestational age is 35 weeks 3 days. The heart rate [id number] beats per minute. FINDINGS: TONE: 1 or [...] Kuo M.D. 07/24/2025 11:09 AM Dictation Location: [place] [address] Electronically authenticated by: [id number] Y Date: 07/24/2025 11:09 Dictated By: Audrey Kuo M.D. Signed By: 07/24/25 1111 DD/ 1109 TD/TT: Planer Chain Offbearer: [facility] Radiology, Radiologist, MD - 07/24/2025 [place] [address] Ultrasound Report Signed Patient: TARA BRUNO MR#: [id number] : 1995 Acct:[id number] Age/Sex: 30 / F ADM Date: 07/24/25 Loc: US Attending Dr: Jo Ann Patino Ordering Physician: Jo Ann Patino Date of Service: 07/24/25 Procedure(s): US OB BPP w non-stress Accession Number(s): [id number] cc: MATT SANDRA Kristina The [place] [address] Patient Name: TARA BRUNO MRN: [facility]:[id number] date: 1995 Sex: F Assigned Patient Location: [facility] Current Patient Location: Accession/Order Number: [id number] Exam Date: 07/24/2025 10:02 Report Date: 07/24/2025 11:09 At the request of: JO ANN PATINO Procedure: US OB BPP w non-stress BIOPHYSICAL PROFILE: CLINICAL INFORMATION: Excessive growth COMPARISON: 07/17/2025 There is a single live intrauterine gestation in cephalic presentation. The reported gestational age is 35 weeks 3 days. The heart rate [id number] beats per minute. FINDINGS: TONE: 1 or [...] Kuo M.D. 07/24/2025 11:09 AM Dictation Location: [place] [address] Electronically authenticated by: [id number] Y Date: 07/24/2025 11:09 Dictated By: Audrey Kuo M.D. Signed By: 07/24/25 1111 DD/ 1109 TD/TT: Planer Chain Offbearer: [facility] Radiology Study observation (narrative) [facility] US OB BPP W NON-STRESS Ordered By: Radiologist Radiology on 07-24-2025 [facility] Work Phone: US OB BPP W NON-STRESS on 07-17-2025 [place] [address] Ultrasound Report Signed Patient: TARA BRUNO MR#: [id number] : 1995 Acct:[id number] Age/Sex: 30 / F ADM Date: 07/17/25 Loc: [facility] 251-[address]: Jo Ann Patino Ordering Physician: Jo Ann Patino Date of Service: 07/17/25 Procedure(s): US OB BPP w non-stress Accession Number(s): [id number] cc: MATT SANDRA Kristina [place] [id number] Patient Name: TARA BRUNO MRN: [id number] date: 1995 Sex: F Assigned Patient Location: [facility] Current Patient Location: [facility] Accession/Order Number: [id number] Exam Date: 07/17/2025 15:03 Report Date: 07/17/2025 15:34 At the request of: JO ANN PATINO Procedure: US OB BPP w non-stress Biophysical profile. Reason for exam: Excessive growth COMPARISON: None TECHNIQUE: Transabdominal imaging of the gravid uterus was obtained. FINDINGS: The research advisor reports a BPP of 8 out of 8. BENNETT is normal at 15.6 cm. heart rate 145 bpm. US/US OB BPP w non-stress IMPRESSION: BPP 8 out of 8. Impression dictated by: Aaron Acevedo Jr., D.O. 07/17/2025 3:34 PM Dictation Location: [facility]22 Electronically authenticated by: [id number] Y Date: 07/17/2025 15:34 Dictated By: Aaron Acevedo M.D. Signed By: 07/17/25 1537 DD/ 1534 TD/TT: Planer Chain Offbearer: [facility] Radiology, Radiologist, - 07/17/2025 [place] [address] Ultrasound Report Signed Patient: TARA BRUNO MR#: [id number] : 1995 Acct:[id number] Age/Sex: 30 / F ADM Date: 07/17/25 Loc: [facility] 251-[address]: Jo Ann Patino Ordering Physician: Jo Ann Patino Date of Service: 07/17/25 Procedure(s): US OB BPP w non-stress Accession Number(s): [id number] cc: MATT SANDRA ; Jo Ann Patino The [place] [address] Patient Name: TARA BRUNO MRN: [facility]:[id number] date: 1995 Sex: F Assigned Patient Location: [facility] Current Patient Location: [facility] Accession/Order Number: [id number] Exam Date: 07/17/2025 15:03 Report Date: 07/17/2025 15:34 At the request of: JO ANN PATINO Procedure: US OB BPP w non-stress Biophysical profile. Reason for exam: Excessive growth COMPARISON: None TECHNIQUE: Transabdominal imaging of the gravid uterus was obtained. FINDINGS: The research advisor reports a BPP of 8 out of 8. BENNETT is normal at 15.6 cm. heart rate 145 bpm. US/US OB BPP w non-stress IMPRESSION: BPP 8 out of 8. Impression dictated by: Aaron Acevedo Jr., D.O. 07/17/2025 3:34 PM Dictation Location: [facility] Electronically authenticated by: [id number] Y Date: 07/17/2025 15:34 Dictated By: Aaron Acevedo M.D. Signed By: 07/17/25 1537 DD/ 1534 TD/TT: Planer Chain Offbearer: [facility] Radiology Study observation (narrative) [facility] US OB BPP W NON-STRESS Ordered By: Radiologist Radiology on 07-17-2025 [facility] Work Phone: US OB FOLLOW UP TRANSABDOMIN [...] UA Negative Negative - 4(70) +++ mg/dL [facility] Blood, UA Positive Negative - 50 Abhi/mcL [facility] Clarity, UA Clear [facility] Color, UA Yellow [facility] Glucose, UA Negative Negative - 1999(110) ++++ mg/dL [facility] Interpretation and review of laboratory results Abnormal [facility] Ketones, UA Negative Negative - 160(16) ++++ mg/dL [facility] Leukocytes, UA Negative Negative - 500+++ Pura/mcL [facility] Nitrite, UA Negative Negative - Positive [facility] pH, UA 7 5 - 9 [facility] Protein, UA Negative Negative - 2000(20) ++++ mg/dL [facility] Spec Grav, UA 1.005 1 - 1.03 [facility] Urobilinogen, UA 1.0 0.2 - 12 mg/dL [facility] Urinalysis macro (dipstick) panel (U)on 06-26-2025 Bilirubin, UA Negative Negative - 4(70) +++ mg/dL [facility] Blood, UA Positive Negative - 50 Abhi/mcL [facility] Comment on above: Trace Clarity, UA Clear [facility] Color, UA Yellow [facility] Glucose, UA Negative Negative - 1999(110) ++++ mg/dL [facility] Interpretation and review of laboratory results Abnormal [facility] Ketones, UA Positive Negative - 160(16) ++++ mg/dL [facility] Comment on above: Trace Leukocytes, UA Negative Negative - 500+++ Pura/mcL [facility] Nitrite, UA Negative Negative - Positive [facility] pH, UA 6 5 - 9 [facility] Protein, UA Trace Negative - 1999(20) ++++ mg/dL [facility] Spec Grav, UA 1.02 1 - 1.03 [facility] Urobilinogen, UA 0.2 0.2 - 12 mg/dL [facility] US OB FOLLOW UP TRANSABDOMIN AL APPROACHon [...] II, MD, PHD at 12-Jun-2025 07:34:42 AM [facility] Normal Not Available Comment on above: Order Comment: US OB SCAN FOR GROWTH Estimated Date of Delivery: 08/25/25 Gestational Age as of 05/29/2025: 27w3d Urinalysis macro (dipstick) panel (U)on 06-11-2025 Bilirubin, UA Negative Negative - 4(70) +++ mg/dL [facility] Blood, UA Positive Negative - 50 Abhi/mcL [facility] Comment on above: Trace Clarity, UA Clear [facility] Color, UA Yellow [facility] Glucose, UA Negative Negative - 1999(110) ++++ mg/dL [facility] Interpretation and review of laboratory results Abnormal [facility] Ketones, UA Positive Negative - 160(16) ++++ mg/dL [facility] Comment on above: Trace Leukocytes, UA Negative Negative - 500+++ Upra/mcL [facility] Nitrite, UA Negative Negative - Positive [facility] pH, UA 6 5 - 9 [facility] Protein, UA Negative Negative - 2000(20) ++++ mg/dL [facility] Spec Grav, UA 1.015 1 - 1.03 [facility] Urobilinogen, UA 0.2 0.2 - 12 mg/dL [facility] ALL CBC WITH AUTO DIFFon BASOPHILS ABSOLUTE AUTO 0 N [facility] Basophils/100 WBC (Bld) 0.2 % 0.2 - 2.0 % [facility] Eosinophils/100 WBC (Bld) 0.9 % 0.9 - 7.0 % [facility] Erythrocyte distribution width (RBC) [Ratio] 13 % 11.0 - 15.0 % [facility] Hematocrit (Bld) [Volume fraction] 30.1 % Low 36.0 - 48.0 % [facility] Hemoglobin (Bld) [Mass/Vol] 10 g/dL Low 12.0 - 16.0 g/dL [facility] IMMATURE GRANULOCYTES ABS AUTO 0.17 High [facility] Immature granulocytes/100 WBC (Bld) 1.7 % High 0.0 - 0.5 % [facility] Interpretation and review of laboratory results Abnormal [facility] LYMPHOCYTES ABSOLUTE AUTO 1.5 [facility] Lymphocytes/100 WBC (Bld) 15.2 % Low 20.5 - 60.0 % [facility] MCH (RBC) [Entitic mass] 29.2 pg 26.7 - 34.0 pg [facility] MCHC (RBC) [Mass/Vol] 33.2 g/dL 29.9 - 35.2 g/dL [facility] MCV (RBC) [Entitic vol] 88 fL 81.0 - 99.0 fL [facility] MONOCYTES ABSOLUTE AUTO 0.[address] [facility] Monocytes/100 WBC (Bld) 5.4 % 1.7 - 12.0 % [facility] NEUTROPHILS ABSOLUTE AUTO 7.5 High [facility] Neutrophils/100 WBC (Bld) 76.6 % High 43.0 - 75.0 % [facility] Platelet mean volume (Bld) [Entitic vol] 9.1 fL Low 9.5 - 13.5 fL [facility] TB EO # 0.1 [facility] TB PLT [address] [facility] RBC 3.42 Low [facility] TB WBC 9.7 [facility] Urinalysis macro (dipstick) panel (U)on 05-29-2025 Bilirubin, UA Negative Negative - 4(70) +++ mg/dL [facility] Blood, UA Positive Negative - 50 Abhi/mcL [facility] Comment on above: trace Clarity, UA Clear [facility] Color, UA Yellow [facility] Glucose, UA Positive Negative - 2000(110) ++++ mg/dL [facility] Comment on above: 100 Interpretation and review of laboratory results Abnormal [facility] Ketones, UA Negative Negative - 160(16) ++++ mg/dL [facility] Leukocytes, UA Negative Negative - 500+++ Pura/mcL [facility] Nitrite, UA Negative Negative - Positive [facility] pH, UA 6 5 - 9 [facility] Protein, UA Negative Negative - 1999(20) ++++ mg/dL [facility] Spec Grav, UA 1.01 1 - 1.03 [facility] Urobilinogen, UA 0.2 0.2 - 12 mg/dL [facility] Urinalysis macro (dipstick) panel (U)on 05-02-2025 Bilirubin, UA Negative Negative - 4(70) +++ mg/dL [facility] Blood, UA Positive Negative - 50 Abhi/mcL [facility] Comment on above: small Clarity, UA Clear [facility] Color, UA Yellow [facility] Glucose, UA Positive Negative - 1999(110) ++++ mg/dL [facility] Comment on above: 100mg/dL Interpretation and review of laboratory results Abnormal [facility] Ketones, UA Negative Negative - 160(16) ++++ mg/dL [facility] Leukocytes, UA Negative Negative - 500+++ Pura/mcL [facility] Nitrite, UA Negative Negative - Positive [facility] pH, UA 6 5 - 9 [facility] Protein, UA Positive Negative - 1999(20) ++++ mg/dL [facility] Comment on above: 30mg/dL Spec Grav, UA 1.03 1 - 1.03 [facility] Urobilinogen, UA 0.2 0.2 - 12 mg/dL [facility] No Panel InformationOrdered By: Radiologist Radiology on 04-10-2025 [facility] Work Phone: No Panel Informationon 04-10 Radiology Study observation (narrative) [facility] US OB ANATOMYon 04-10-[address] [address] Ultrasound Report Signed Patient: TARA BRUNO MR#: [id number] : 1995 Acct:[id number] Age/Sex: 30 / F ADM Date: 04/10/25 Loc: US Attending Dr: Chelsea Lopez D.O. Ordering Physician: Chelsea Lopez D.O. Date of Service: 04/10/25 Procedure(s): US OB anatomy Accession Number(s): [id number] cc: MATT SANDRA ; Chelsea Lopez D.O. [place] [address] Patient Name: TARA BRUNO MRN: [facility]:[id number] date: 1995 Sex: F Assigned Patient Location: US Current Patient Location: US Accession/Order Number: [id number] Exam Date: 04/10/2025 16:00 Report Date: 04/10/2025 [...] due date is 08/19/2025. somatic motion identified. / OB anatomy IMPRESSION: Single live intrauterine gestation 21 weeks 2 days. The anatomy as above. Impression dictated by: Ashish Wynn M.D. 04/10/2025 4:04 PM Dictation Location: [employer] Electronically authenticated by: [id number] Y Date: 04/10/2025 16:04 Dictated By: Ashish Wynn D.O. Signed By: 04/10/25 1607 DD/ 1604 TD/TT: Planer Chain Offbearer: [facility] Radiology, Radiologist, - 04/10/2025 [place] [address] Ultrasound Report Signed Patient: TARA BRUNO MR#: [id number] : 1995 Acct:[id number] Age/Sex: 30 / F ADM Date: 04/10/25 Loc: US Attending Dr: Chelsea Lopez D.O. Ordering Physician: Chelsea Lopez D.O. Date of Service: 04/10/25 Procedure(s): US OB anatomy Accession Number(s): [id number] cc: MATT SANDRA ; Chelsea Lopez D.O. The [place] [id number] Patient Name: TARA BRUNO MRN: [facility]:[id number] date: 1995 Sex: F Assigned Patient Location: US Current Patient Location: US Accession/Order Number: [id number] Exam Date: 04/10/2025 16:00 Report Date: 04/10/2025 [...] Wynn M.D. 04/10/2025 4:04 PM Dictation Location: [place] [address] Electronically authenticated by: [id number] Y Date: 04/10/2025 16:04 Dictated By: Ashish Wynn D.O. Signed By: 04/10/25 1607 DD/ 1604 TD/TT: Planer Chain Offbearer: [facility] US OB CERVICAL LENGTHon 03-15 [place] [address] Ultrasound Report Signed Patient: TARA BRUNO MR#: [id number] : 1995 Acct:[id number] Age/Sex: 30 / F ADM Date: 04/10/25 Loc: US Attending Dr: Chelsea Lopez D.O. Ordering Physician: Chelsea Lopez D.O. Date of Service: 04/10/25 Procedure(s): US OB cervical length Accession Number(s): [id number] cc: MATT SANDRA Corey D.O. [place] [id number] Patient Name: TARA BRUNO MRN: [id number]:[id number] date: 1995 Sex: F Assigned Patient Location: US Current Patient Location: US Accession/Order Number: [id number] Exam Date: 04/10/2025 16:04 Report Date: 04/10/2025 16:04 At the request of: CHELSEA LOPZE DO Procedure: US OB cervical length Obstetrical ultrasound to assess for cervical length Cervical length 3.9 cm. Os closed. US/US OB cervical length IMPRESSION: Cervical length 3.9 cm. Impression dictated by: Ashish Wynn M.D. 04/10/2025 4:04 PM Dictation Location: [facility] Electronically authenticated by: [id number] Y Date: 04/10/2025 16:04 Dictated By: Ashish Wynn D.O. Signed By: 04/10/25 1607 DD/ 1604 TD/TT: Planer Chain Offbearer: [facility] Radiology, Radiologist, MD - 04/10/2025 [place] [address] Ultrasound Report Signed Patient: TARA BRUNO MR#: [id number] : 1995 Acct:[id number] Age/Sex: 30 / F ADM Date: 04/10/25 Loc: US Attending Dr: Chelsea Lopez D.O. Ordering Physician: Chelsea Lopez D.O. Date of Service: 04/10/25 Procedure(s): US OB cervical length Accession Number(s): [id number] cc: MATT SANDRA Corey D.O. The [address] [address] Patient Name: TARA BRUNO MRN: [facility]:[id number] date: 1995 Sex: F Assigned Patient Location: US Current Patient Location: US Accession/Order Number: [id number] Exam Date: 04/10/2025 16:04 Report Date: 04/10/2025 16:04 At the request of: CHELSEA LOPEZ DO Procedure: US OB cervical length Obstetrical ultrasound to assess for cervical length Cervical length 3.9 cm. Os closed. US/US OB cervical length IMPRESSION: Cervical length 3.9 cm. Impression dictated by: Ashish Wynn M.D. 04/10/2025 4:04 PM Dictation Location: [facility] Electronically authenticated by: [id number] Y Date: 04/10/2025 16:04 Dictated By: Ashish Wynn D.O. Signed By: 04/10/251606 DD/ 03 TD/TT: Planer Chain Offbearer: [facility] RECURRENT VAGINITIS (HTRX)on 04-04-2025 ATOPOBIUM VAGINAE 27.45 Abnormal [facility] ATOPOBIUM VAGINAE Detected Abnormal [facility] BVAB 2,3 (BACTERIAL VAGINOSIS ASSOCIATED BACTERIA 2, 3); MOBILUNCUS SPP 17.543 Abnormal [facility] BVAB 2,3 (BACTERIAL VAGINOSIS ASSOCIATED BACTERIA 2, 3); MOBILUNCUS SPP Detected Abnormal [facility] AYSHA ALBICANS, PARAPSILOSIS, TROPICALIS 0 [facility] AYSHA ALBICANS, PARAPSILOSIS, TROPICALIS Not detected [facility] AYSHA GLABRATA 0 [facility] AYSHA GLABRATA Not detected [facility] AYSHA KRUSEI 16.514 Abnormal [facility] AYSHA KRUSEI Detected Abnormal [facility] CHLAMYDIA TRACHOMATIS 0 [facility] CHLAMYDIA TRACHOMATIS Not detected N [facility] ERMB, C; MEFA 22.692 Abnormal [facility] ERMB, C; MEFA Detected Abnormal [facility] GARDNERELLA VAGINALIS 26.666 Abnormal [facility] GARDNERELLA VAGINALIS Detected Abnormal [facility] Interpretation and review of laboratory results Abnormal [facility] MEGASPHAERA (TYPES 1, 2) 21.837 Abnormal [facility] MEGASPHAERA (TYPES 1, 2) Detected Abnormal [facility] MYCOPLASMA GENITALIUM 0 [facility] MYCOPLASMA GENITALIUM Not detected N [facility] NEISSERIA GONORRHOEAE 0 [facility] NEISSERIA GONORRHOEAE Not detected N [facility] TET B, TET M 20.933 Abnormal [facility] TET B, TET M Detected Abnormal [facility] TRICHOMONAS VAGINALIS 0 [facility] TRICHOMONAS VAGINALIS Not detected N [facility] Urinalysis macro (dipstick) panel (U)on 04-03-2025 Bilirubin, UA Negative Negative - 4(70) +++ mg/dL [facility] Blood, UA Positive Negative - 50 Abhi/mcL [facility] Comment on above: trace Clarity, UA Clear [facility] Color, UA Yellow [facility] Glucose, UA Positive Negative - 2000(110) ++++ mg/dL [facility] Comment on above: 100 Interpretation and review of laboratory results Abnormal [facility] Ketones, UA Negative Negative - 160(16) ++++ mg/dL [facility] Leukocytes, UA Positive Negative - 500+++ Pura/mcL [facility] Comment on above: small Nitrite, UA Negative Negative - Positive [facility] pH, UA 6 5 - 9 [facility] Protein, UA Trace Negative - 2000(20) ++++ mg/dL [facility] Spec Grav, UA 1.02 1 - 1.03 [facility] Urobilinogen, UA 0.2 0.2 - 12 mg/dL [facility] Urinalysis macro (dipstick) panel (U)on 02-26-2025 Bilirubin, UA Negative Negative - 4(70) +++ mg/dL [facility] Blood, UA Negative Negative - 50 Abhi/mcL [facility] Clarity, UA Clear [facility] Color, UA Yellow [facility] Glucose, UA Negative Negative - 1999(110) ++++ mg/dL [facility] Interpretation and review of laboratory results Normal [facility] Ketones, UA Negative Negative - 160(16) ++++ mg/dL [facility] Leukocytes, UA Negative Negative - 500+++ Pura/mcL [facility] Nitrite, UA Negative Negative - Positive [facility] pH, UA 6 5 - 9 [facility] Protein, UA Negative Negative - 1999(20) ++++ mg/dL [facility] Spec Grav, UA 1.02 1 - 1.03 [facility] Urobilinogen, UA 0.2 0.2 - 12 mg/dL [facility] US OB TRANSVAGINALon 025 US OB TRANSVAGINAL [...] the right ovary is not visualized. Electronically Signed:Electronicall y signed by CATARINA OTOOLE II, MD, PHD at 27-Jan-2025 07:45:14 AM [facility] Normal Not Available Comment on above: Order Comment: US OB TRANSVAGINAL No LMP recorded. IGP,APTIMA HPV,AGE GDLNon AGE GDLN ACOG TESTING Note . [facility] Comment on above: TESTS RESULT FLAG UN ITS REF RANGE LAB Clinician Provided Cytology Information Source.............Cervix;Endocervix No. of containers..01 ThinPrep Vial Age Algo ACOG Violetta... -13 12 FLAG LEGEND: L-Low Normal,H-High Normal,LL-Alert Low,HH-Alert High <-Panic Low,>-Panic High,A-Abnormal,AA-Critical Abnormal Performed at: 01 =G [address] [address] Adriana Pfeiffer MD, IGP, RFX APTIMA HPV ASCU Note . [facility] Comment on above: TESTS RESULT FLAG UN ITS REF RANGE LAB DIAGNOSIS: 02 NEGATIVE FOR INTRAEPITHELIAL LESION OR MALIGNANCY. Specimen adequacy: 02 Satisfactory for evaluation. Endocervical and/or squamous metaplastic cells (endocervical component) are present. Performed by: 02 Erin Barbosa, Fire Claims Adjuster ([facility]) . 02 Note: Note 02 The Pap [...] <-Panic Low,>-Panic High,A-Abnormal,AA-Critical Abnormal Performed at: [address] [facility] [address] [address] Adriana Pfeiffer MD, Performed at: =G - [facility] [address] [id number] Humidifier Attendant: Adriana Pfeiffer MD, Phone: [phone] Performed at: [facility], [place] [id number] Humidifier Attendant: Adriana Pfeiffer MD, Phone: [phone] BRUSH-SPATULA CERVIX ENDOCERVIX [facility] POCT , urineon 02-13 Beta HCG ( test) Ql (U) Negative [facility] POCT Influenza A/Influenza B /SARS-COV-2 VeritorOrdered By: Ellie Ruvalcaba on 02-08-2024 External Poct Influenza A Antigen Negative [facility] External Poct Influenza B Antigen Negative [facility] SARS-CoV-2 (COVID-19) Ag IA.rapid Ql (Resp) Negative [facility] POCT rapid strep Aon 024 [employer] 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 pyogenes Ag IA Ql (Unsp spec) Negative Negative [facility] US PELVIS AND TRANSVAGon US PELVIS AND [...] by: SAHARA APODACA Date: 2022-12-01 08:05 Normal [facility] US PELVIS TRANSVAGon 022 US PELVIS [...] by: YAMEL GOMEZ Date: 2022-02-10 14:27 Normal [facility] Vital Signs Date Time Vital Sign Value Performing Clinician Facility 07-10-2025 14:13-0400 Body mass index (BMI) [Ratio] 34.9 kg/m2 [employer] Work Phone: [facility] 07-10-2025 14:13-0400 Body weight 89.36 kg [employer] Work Phone: [facility] 07-10-2025 14:13-0400 Diastolic blood pressure 74 mm[Hg] [employer] Work Phone: [facility] 07-10-2025 14:13-0400 Systolic blood pressure 122 mm[Hg] [employer] Work Phone: [facility] 06-26-2025 13:34-0400 Body mass index (BMI) [Ratio] 34.28 kg/m2 Josi HERNANDEZ Work Phone: [facility] 06-26-2025 13:34-0400 Body weight 87.77 kg Josi HERNANDEZ Work Phone: [facility] 06-26-2025 13:34-0400 Diastolic blood pressure 60 mm[Hg] Josi Duenas PA Work Phone: [facility] 06-26-2025 13:34-0400 Systolic blood pressure 116 mm[Hg] Josi Duenas PA Work Phone: [facility] 06-11-2025 14:47-0400 Body mass index (BMI) [Ratio] 34.06 kg/m2 Chelsea John DO Work Phone: [facility] 06-11-2025 14:47-0400 Body weight 87.2 kg Chelsea John DO Work Phone: [facility] 06-11-2025 14:47-0400 Diastolic blood pressure 68 mm[Hg] Chelsea John DO Work Phone: [facility] 06-11-2025 14:47-0400 Systolic blood pressure 122 mm[Hg] Chelsea John DO Work Phone: [facility] 05-29-2025 13:39-0400 Body mass index (BMI) [Ratio] 33.66 kg/m2 Josi Duenas PA Work Phone: [facility] 05-29-2025 13:39-0400 Body weight 86.18 kg Josi Duenas PA Work Phone: [facility] 05-29-2025 13:39-0400 Diastolic blood pressure 70 mm[Hg] oJsi Duenas PA Work Phone: [facility] 05-29-2025 13:39-0400 Systolic blood pressure 110 mm[Hg] Josi Duenas PA Work Phone: [facility] 05-02-2025 09:09-0400 Body mass index (BMI) [Ratio] 32.42 kg/m2 Chelsea John DO Work Phone: [facility] 05-02-2025 09:09-0400 Body weight 83.01 kg Chelsea John DO Work Phone: [facility] 05-02-2025 09:09-0400 Diastolic blood pressure 64 mm[Hg] Chelsea John DO Work Phone: [facility] 05-02-2025 09:09-0400 Systolic blood pressure 102 mm[Hg] Chelsea John DO Work Phone: [facility] 04-03-2025 09:41-0400 Body mass index (BMI) [Ratio] 31 kg/m2 Josi Sony PA Work Phone: [facility] 04-03-2025 09:41-0400 Body weight 79.38 kg Josi Sony PA Work Phone: [facility] 04-03-2025 09:41-0400 Diastolic blood pressure 72 mm[Hg] Josi Ashville PA Work Phone: [facility] 04-03-2025 09:41-0400 Systolic blood pressure 116 mm[Hg] Josi Ashville PA Work Phone: [facility] 02-26-2025 09:50-0400 Body mass index (BMI) [Ratio] 29.94 kg/m2 Chelsea John DO Work Phone: [facility] 02-26-2025 09:50-0400 Body weight 76.66 kg Chelsea John DO Work Phone: [facility] 02-26-2025 09:50-0400 Diastolic blood pressure 76 mm[Hg] Chelsea John DO Work Phone: [facility] 02-26-2025 09:50-0400 Systolic blood pressure 110 mm[Hg] Chelsea John DO Work Phone: [facility] 12-11-2024 13:26-0500 Body mass index (BMI) [Ratio] 29.05 kg/m2 Chelsea John DO Work Phone: [facility] 12-11-2024 13:26-0500 Body weight 74.39 kg Chelsea John DO Work Phone: [facility] 12-11-2024 13:26-0500 Diastolic blood pressure 68 mm[Hg] Chelsea John DO Work Phone: [facility] 12-11-2024 13:26-0500 Systolic blood pressure 114 mm[Hg] Chelsea Lopez DO Work Phone: [facility] 07-03-2024 [id number] Body height 157.48 cm [facility] 07-03-2024 [id number] Body mass index (BMI) [Ratio] 29.2 kg/m2 [facility] 07-03-2024 15:040 Body weight 72.57 kg [facility] 03-12-2024 11:040 Body height 157.5 cm Matt Sandra CRAFT 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[employer] BUIL[employer] Work Phone: [facility] [employer] [facility] 03-12-2024 11:0400 Body mass index (BMI) [Ratio] 28.55 kg/m2 Matt Sandra CRAFT 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[employer] BU[employer] Work Phone: [facility] [employer] [facility] 03-12-2024 11:21-0400 Body temperature 98.1 [degF] Matt Sandra CRAFT 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L[employer] BUILDER WHOLE Work Phone: [facility] [employer] [facility] 03-12-2024 11:0400 Body weight 70.81 kg Matt Sandra CRAFT 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LIFT BUILDER [employer]LE [facility] 03-12-2024 11:21-0400 Diastolic blood pressure 68 mm[Hg] Matt Sandra CRAFT 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LIFT BUILDER WHOLE [facility] 03-12-2024 11:21-0400 Heart rate 79 /min Matt Sandra CRAFT 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LIFT BUILDER WHOLE [facility] 03-12-2024 11:21-0400 Respiratory rate 20 /min Matt Sandra CRAFT 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LIFT BUILDER WHOLE Work Phone[facility] 03-12-2024 11:21-0400 SaO2% (BldA) [Mass fraction] 100 % Matt Sandra CRAFT 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L[employer] BUILDER WHOLE Work Phone: [facility] [employer] [facility] 03-12-2024 11:21-0400 Systolic blood pressure 110 mm[Hg] Matt Sandra CRAFT 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L[employer] BUILDER WHOLE Work Phone: [facility] [employer] [facility] 02-08-2024 11:53-0400 Body height 157.5 cm Cuco Ceron CRAFT 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LIFT BUILDER WHOLE Work Phone: [facility] 02-08-2024 11:53-0400 Body mass index (BMI) [Ratio] 28.9 kg/m2 Cuco Ceron CRAFT 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LIFT BUILDER WHOLE Work Phone: [facility] 02-08-2024 11:53-0400 Body temperature 98.2 [degF] Cuco Ceron CRAFT 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L[employer] BUILDER WHOLE Work Phone: [facility] 02-08-2024 11:53-0400 Body weight 71.67 kg Cuco Ceron CRAFT 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LIFT BUILDER WHOLE Work Phone: [facility] [employer] 02-08-2024 11:53-0400 Diastolic blood pressure 68 mm[Hg] Cuco Ceron CRAFT 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LIFT BUILDER WHOLE Work Phone: [facility] 02-08-2024 11:53-0400 Heart rate 97 /min Cuco Ceron APRN-LIFT BUILDER WHOLE Work Phone: [facility] 02-08-2024 11:53-0400 Respiratory rate 18 /min Cuco Ceron APRN-LIFT BUILDER WHOLE Work Phone: [facility] 02-08-2024 11:53-0400 SaO2% (BldA) [Mass fraction] 97 % Cuco Ceron APRN-LIFT BUILDER WHOLE Work Phone: [facility] 02-08-2024 11:53-0400 Systolic blood pressure 112 mm[Hg] Cuco Ceron CRAFT 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L[employer] BUILDER [employer] Work Phone: [facility] [employer] [facility] 01-03-2024 10:16-0500 Body height 157.5 cm Matt Sandra APRN-LIFT BUILDER WHOLE Work Phone: [facility] [employer] [facility] 01-03-2024 10:16-0500 Body mass index (BMI) [Ratio] 29.23 kg/m2 Matt Sandra APRN-YVES Work Phone: [email or web address] 01-03-2024 10:16-0500 Body temperature 97.3 [degF] Matt Sandra APRN-YVES [facility] 01-03-2024 10:16-0500 Body weight 72.48 kg Matt Sandra APRN-YVES [facility] 01-03-2024 10:16-0500 Diastolic blood pressure 58 mm[Hg] Matt Sandra APRN-YVES [facility] 01-03-2024 10:16-0500 Heart rate 72 /min Matt Sandra APRN-YVES [facility] 01-03-2024 10:16-0500 SaO2% (BldA) [Mass fraction] 99 % Matt Sandra APRN-YVES Work Phone: [email or web address] 01-03-2024 10:16-0500 Systolic blood pressure 102 mm[Hg] Matt Sandra APRN-YVES Work Phone: [facility] [employer] Encounters Encounter Date Encounter Type Care Provider Facility Start: 07-24-2025 End: 07-24-2025 Clinisync Result Encounter Jo Ann Scanlonerly [employer] Work Phone: [facility] Unsolicited Start: 07-24-2025 End: 07-24-2025 Clinisync Result Encounter Jo Ann Scanlonerly [employer] Work Phone: [facility] Unsolicited Start: 07-17-2025 End: 07-17-2025 Clinisync Result Encounter Jo Ann Scanlonerly [employer] Work Phone: [facility] Unsolicited Start: 07-17-2025 End: 07-17-2025 Clinisync Result Encounter Jo Ann Scanlonerly [employer] Work Phone: [facility] Unsolicited Start: [...] 06-26-2025 [employer] Josi HERNANDEZ Work Phone: [facility] Start: 06-26-2025 End: 06-26-2025 Bamboo flowsheet Josi HERNANDEZ Work Phone: [facility] Start: 06-26-2025 End: 06-26-2025 Office outpatient visit 15 minutes Josi HERNANDEZ Work Phone: [facility] Comment on above: Third trimester preg alejandro (HHS-HCC); 31 weeks gestation of ([facility]) Start: 06-26-2025 End: 06-26-2025 ambulatory JOSI DUENAS Not Available Start: 06-11-2025 End: 06-11-2025 ambulatory CHELSEA JOHN Not Available Start: 06-11-2025 End: 06-11-2025 Office outpatient visit 15 minutes Chelsea John DO Work Phone: [facility] Comment on above: Third trimester preg alejandro (HHS-HCC); 29 weeks gestation of (HHS-HCC); Anemia affecting in third trimester (HHS-HCC); Excessive growth affecting management of , antepartum, single or unspecified fetus (HHS-HCC) Start: 06-11-2025 End: 06-11-2025 ambulatory CHELSEA JOHN Not Available Start: 05-29-2025 End: 05-29-2025 Clinisync Result Encounter Chelsea John DO Work Phone: [facility] Unsolicited Start: 05-29-2025 End: 05-29-2025 Clinisync Result Encounter Chelsea John DO Work Phone: [facility] Unsolicited Start: 05-29-2025 End: 05-29-2025 ambulatory JOSI DUENAS Not Available Start: 05-29-2025 End: 05-29-2025 Office outpatient visit 15 minutes Josi HERNANDEZ Work Phone: [facility] Comment on above: Size of fetus incons istent with dates in second trimester ([facility]) (Primary Dx); Second trimester ([facility]); 27 weeks gestation of ([facility]) Start: 05-02-2025 End: 05-02-2025 Bamboo flowsheet Chelsea John DO Work Phone: [facility] Start: 05-02-2025 End: 05-02-2025 Bamboo flowsheet Chelsea John DO Work Phone: [facility] Start: 05-02-2025 End: 05-02-2025 ambulatory CHELSEA JOHN Not Available Start: 05-02-2025 End: 05-02-2025 Office outpatient visit 15 minutes Chelsea John DO Work Phone: [facility] Comment on above: Diabetes mellitus sc reening; Second trimester ([facility]); 23 weeks gestation of ([facility]) Start: 04-10-2025 End: 04-10-2025 Clinisync Result Encounter Chelsea John DO Work Phone: [facility] Unsolicited Start: 04-10-2025 End: 04-10-2025 Clinisync Result Encounter Chelsea John DO Work Phone: [facility] Unsolicited Start: 04-03-2025 End: 04-03-2025 Bamboo flowsheet Josi HERNANDEZ Work Phone: [facility] Start: 04-03-2025 End: 04-04-2025 Bamboo flowsheet Josi HERNANDEZ Work Phone: [facility] Start: 04-03-2025 End: 04-04-2025 External Result Encounter Josi HERNANDEZ Work Phone: [facility] External Department Unsolicited Start: 04-03-2025 End: 04-03-2025 Office outpatient visit 15 minutes Josi HERNANDEZ Work Phone: [facility] Comment on above: Second trimester pre gnancy; 18 weeks gestation of ; Screening, , for anatomic survey; Screening examination for STI; Need for maternal serum alpha-protein (MSAFP) screening Start: 04-03-2025 End: 04-03-2025 ambulatory JOSI DUENAS Not Available Start: 02-26-2025 End: 02-26-2025 Bamboo flowsheet Chelsea John DO Work Phone: [facility] Start: 02-26-2025 End: 02-26-2025 Bamboo flowsheet Chelsea John DO Work Phone: [facility] Start: 02-26-2025 End: 02-26-2025 Office [...] Result Encounter Chelsea John DO Work Phone: [facility] External Department Unsolicited Start: 12-11-2024 End: 12-11-2024 Patient encounter procedure Chelsea John DO Work Phone: [facility] Start: 12-11-2024 End: 12-11-2024 Periodic preventive med est patient 18-39 yrs Chelsea Lopez DO Work Phone: [facility] Comment on above: Well woman exam with routine gynecological exam Start: 12-11-2024 End: 12-11-2024 ambulatory CHELSEA LOPEZ Not Available Start: 07-03-2024 End: 07-03-2024 ambulatory [facility] Work Phone: Start: 07-03-2024 End: 07-03-2024 Patient encounter procedure [facility] Work Phone: Start: 04-10-2024 Non-patient / Non-visit [facility] Work Phone: Start: 03-12-2024 End: 03-12-2024 ambulatory [facility] Start: 03-12-2024 End: 03-12-2024 Office outpatient visit 15 minutes [facility] CRAFT 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L[employer] BUILDER WHOLE Work Phone: [facility] Comment on above: Anxiety and depressi on (Primary Dx); Nausea; Syncope, unspecified syncope type Start: 02-27-2024 End: 02-28-2024 ambulatory [facility] Travis burton Start: 02-09-2024 Telephone encounter Mikala sultana [facility] Start: 02-08-2024 End: 02-08-2024 ambulatory [facility] Start: 02-08-2024 End: 02-08-2024 Office outpatient visit 15 minutes [facility] CRAFT 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L[employer] BUILDER WHOLE Work Phone: [facility] Comment on above: Viral upper respirat ory tract infection (Primary Dx); Chills; Epigastric pain; Syncope and collapse; Gastroesophageal reflux disease, unspecified whether esophagitis present Start: 01-03-2024 End: 01-03-2024 ambulatory [facility] Start: 01-03-2024 End: 01-03-2024 Office outpatient visit 15 minutes Matt Srini Sandra CRAFT 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LIFT BUILDER WHOLE Work Phone: [facility] Comment on above: Anxiety and depressi on (Primary Dx) Start: 12-01-2022 End: 12-01-[address] CHELSEA LOPEZ Facility:[facility] Start: 11-30-2022 End: 12-01-[address] CHELSEA LOPEZ Facility:[facility] Start: 02-10-2022 End: 02-11-[address] CHELSEA LOPEZ Facility:[facility] Start: 07-29-2017 End: 07-29-2017 Emergency department patient visit [facility] Procedures Date Procedure Procedure Detail Performing Clinician Start: 07-24-2025 US OB BPP W NON-STRESS Jo Ann Patino [employer] Work Phone: Start: 07-17-2025 US OB BPP W NON-STRESS Jo Ann Carey [employer] Work Phone: Start: 07-10-2025 Urnls dip stick/tabl et rgnt non-auto w/o micrscp Chelsea John DO Work Phone: Start: 06-26-2025 Urnls dip [...] test visual color cmprsn meths Matt Sandra [employer]FT [employer] Work Phone: Start: 03-12-2024 Adult depression scr eening assessment Matt Sandra CRAFT 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[employer] Work Phone: Start: 02-08-2024 Iaadiadoo streptococ cus group a Cuco Ceron CRAFT 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 Work Phone: Start: 02-08-2024 POCT INFLUENZA A/INF LUENZA B/SARS-COV-2 VERITOR Cuco Ceron CRAFT 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 Work Phone: Start: 02-08-2024 Adult depression scr eening assessment Cuco Ceron CRAFT 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 Work Phone: Start: 01-03-2024 Adult depression scr eening assessment Matt Sandra CRAFT 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 Work Phone: Start: 08-09-2018 Microscopic observat ion [Identifier] in Cervix by Cyto stain Matt Sandra [employer] Work Phone: Plan of Treatment Date Care Activity Detail Author Start: 12-16-2025 End: 12-16-2025 Patient encounter procedure [facility] Start: 08-05-2025 End: 08-05-2025 Patient encounter procedure 08/05/2025 10:50 AM EDT Routine [facility] [address] [place] [id number] Chelsea Lopez, [address] [place] [address] [facility] Start: 07-31-2025 End: 07-31-2025 Professional / ancillary services management 07/31/2025 9:30 AM EDT Ancillary Procedure [facility] [address] [place] [phone] [facility] Start: 07-29-2025 End: 07-29-2025 Patient encounter procedure 07/29/2025 9:20 AM EDT Routine [facility] [address] [facility] [place] [phone] Josi Duenas PA [address] [place] [address] [facility] Start: 07-15-2025 Influenza vaccination [facility] Start: 07-10-2025 End: 07-10-2025 Patient encounter procedure 07/10/2025 2:10 PM EDT Routine [facility] [address] [place] [phone] Chelsea Lopez DO [address] [place] [address] [facility] Start: 07-10-2025 End: 01-10-2026 US biophysical profile w non stress test US biophysical profile w non stress test Imaging Routine Excessive growth affecting management of in third trimester, single or unspecified fetus (HHS-HCC) Expected: 07/10/2025 (Approximate), Expires: 01/10/2026 [facility] Comment on above: Expected: 07/10/2025 (Approximate), Expires: 01/10/2026 Start: 07-10-2025 End: 11-09-2025 US for US OB follow up transabdominal approach Imaging Routine Excessive growth affecting management of in third trimester, single or unspecified fetus ([facility]HS-HCC) Expected: 07/10/2025, Expires: 11/09/2025 [facility] Work Phone: Comment on above: Expected: 07/10/2025 , Expires: 11/09/2025 Start: 07-10-2025 End: 07-10-2025 Professional / ancillary services management 07/10/2025 1:30 PM EDT Ancillary Procedure [facility] [address] [place] [phone] [facility] Start: 06-26-2025 End: 06-26-2025 Patient encounter procedure [facility] Comment on above: Arrived Start: 06-11-2025 End: 06-11-2025 Patient encounter procedure 06/11/2025 2:00 PM EDT Routine [facility] [address] [place] [phone] Chelsea Lopez, DO [address], [place] [address] [facility] Start: 06-11-2025 End: 10-12-2025 US for US OB follow up transabdominal approach Imaging Routine Excessive growth affecting management of , antepartum, single or unspecified fetus (HHS-HCC) Expected: 06/11/2025, Expires: 10/12/2025 [facility] Work Phone: Comment on above: Expected: 06/11/2025 , Expires: 10/12/2025 Start: 06-11-2025 End: 06-11-2025 Professional / ancillary services management 06/11/2025 1:30 PM EDT Ancillary Procedure [facility] [address] [place] [address] [facility] Start: 05-29-2025 End: 09-29-2025 US for US OB follow up transabdominal approach Imaging Routine Size of fetus inconsistent with dates in second trimester ([facility]) Expected: 05/29/2025, Expires: 09/29/2025 [facility] Work Phone: Comment on above: Expected: 05/29/2025 , Expires: 09/29/2025 Start: 05-29-2025 End: 05-29-2025 Patient encounter procedure 05/29/2025 1:20 PM EDT Routine [facility] [address] [place] [address] Josi Duenas PA [address] [place], [place] [address] [facility] Start: 05-02-2025 End: 05-02-2026 CBC panel - Blood by Automated count CBC Lab Routine Diabetes mellitus screening Expected: 05/02/2025 (Approximate), Expires: 05/02/2026 [facility] Work Phone: Comment on above: Expected: 05/02/2025 (Approximate), Expires: 05/02/2026 Start: 05-02-2025 End: 05-02-2026 Measurement of glucose 1 hour after glucose challenge for glucose tolerance test Glucose tolerance, 1 hour Lab Routine Diabetes mellitus screening Expected: 05/02/2025 (Approximate), Expires: 05/02/2026 [facility] Comment on above: Expected: 05/02/2025 (Approximate), Expires: 05/02/2026 Start: 05-02-2025 End: 05-02-2025 Patient encounter procedure 05/02/2025 8:50 AM EDT Routine [facility] [address] [place] [phone] Chelsea Lopez DO [address] [place] [address] [facility] Start: 04-03-2025 End: 05-04-2025 Alpha fetoprotein, maternal Alpha fetoprotein, maternal Lab Routine Need for maternal serum alpha-protein (MSAFP) screening Expected: 04/03/2025 (Approximate), Expires: 05/04/2025 [facility] Comment on above: Expected: 04/03/2025 (Approximate), Expires: 05/04/2025 Start: 04-03-2025 End: 07-04-2025 US for US OB 14+ weeks anatomy scan Imaging Routine Screening, , for anatomic survey Expected: 04/03/2025, Expires: 07/04/2025 [facility] Comment on above: Expected: 04/03/2025 , Expires: 07/04/2025 Start: 04-03-2025 End: 04-03-2025 Patient encounter procedure [facility] Comment on above: Arrived Start: 03-12-2025 Adult BMI Screening Adult BMI Screen ing [facility] Start: 03-12-2025 [facility] Start: 03-12-2025 Tobacco Screening Tobacco Screening [facility] Start: 02-26-2025 End: 02-26-2025 Patient encounter procedure 02/26/2025 9:50 AM EDT Routine [facility] [address] [place] [phone] Chelsea Lopez, DO [address] [place] [address] Arrived [facility] Comment on above: Arrived Start: 02-07-2025 Adult BMI Screening Adult BMI Screen ing [facility] Start: 02-07-2025 Depression Screening Depression Scre ening [facility] Start: 02-07-2025 Tobacco Screening Tobacco Screening [facility] Start: 01-03-2025 Adult BMI Follow Up Plan Adult BMI Follow Up Plan [facility] Start: 01-03-2025 Adult BMI Screening Adult BMI Screen ing [facility] Start: 01-03-2025 Depression Screening Depression Scre ening [facility] Start: 01-03-2025 Tobacco Screening Tobacco Screening [facility] Start: 12-11-2024 End: 12-11-2024 Patient encounter procedure 12/11/2024 1:20 PM EST Office Visit [facility] [address] [place] [phone] Chelsea Lopez, [address] [place] [address] Arrived [facility] Comment on above: Arrived Start: 07-15-2024 Influenza vaccination Influenza Vacc ine (#1) [facility] Start: 03-12-2024 End: 03-12-2024 Patient encounter procedure 03/12/2024 11:20 AM EDT Office Visit [facility] Internal Medicine Family [facility] [address] [place] [address] Matt Sandra, CRAFT 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L[employer] BUILDER [employer]LE [address] [place] [address] [facility] - [facility] Start: 02-21-2024 End: 02-21-2024 Patient encounter procedure 02/21/2024 9:40 AM EDT Office Visit [facility] Internal Medicine - Family [facility] [address] [place] [address] Matt Sandra, CRAFT 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LIFT BUILDER [employer]LE [address] [place] [address] [facility] Start: 02-08-2024 End: 02-07-2025 Event monitor Event monitor Cardiac Services Routine Syncope and collapse Expected: 02/08/2024, Expires: 02/07/2025 [facility] Work Phone: Comment on above: Expected: 02/08/2024 , Expires: 02/07/2025 Start: 08-09-2021 Screening for malign ant neoplasm of cervix Pap Smear [facility] Start: 02-02-2007 DTaP,Tdap and Td Vaccines (6 - Tdap) DTaP,Tdap and Td Vaccines (6 - Tdap) [facility] Bacteria identified in Urine by Culture Urine culture Microbiology Routine Hematuria, unspecified type Ordered: 07/10/2025 [facility] Comment on above: Ordered: 07/10/2025 End: 03-12-2025 Basic metabolic 2000 panel - Serum or Plasma Basic Metabolic Panel Lab Routine Nausea 1 Occurrences starting 03/12/2024 until 03/12/2025 [facility] Comment on above: 1 Occurrences starti ng 03/12/2024 until 03/12/2025 End: 03-12-2025 CBC W Auto Differential panel - Blood CBC auto differential Lab Routine Nausea 1 Occurrences starting 03/12/2024 until 03/12/2025 [facility] Work Phone: Comment on above: 1 Occurrences starti ng 03/12/2024 until 03/12/2025 CHLAMYDIA TRACHOMATI S (GENITO/STI) CHLAMYDIA TRACHOMATIS (GENITO/STI) Lab Routine Screening examination for STI Ordered: 04/03/2025 [facility] Comment on above: Ordered: 04/03/2025 Cytology Cervical or vaginal smear or scraping study Pap Smear Pathology and Cytology Routine Well woman exam with routine gynecological exam Ordered: 12/11/2024 [facility] Work Phone: Comment on above: Ordered: 12/11/[address] [facility] Neisseria gonorrhoea e DNA [Presence] in Unspecified specimen by MARION with probe detection Neisseria gonorrhea DNA probe, direct Lab Routine Screening examination for STI Ordered: 04/03/2025 [facility] Comment on above: Ordered: 04/03/2025 SURESWAB(R) ADVANCED VAGINITIS PLUS, TMA SURESWAB(R) ADVANCED VAGINITIS PLUS, TMA Pathology and Cytology Routine Screening examination for STI Ordered: 04/03/2025 [facility] Work Phone: Comment on above: Ordered: 04/03/2025 US Abdomen limited [facility] Immunizations Immunization Date Immunization Notes Care Provider Maegan argueta 07-30-2002 diphtheria, tetanus toxoids and acellular pertussis vaccine Matt Sandra CRAFT 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[facility] Work Phone: [facility] 07-30-2002 measles, mumps and rubella virus vaccine Matt Sandra CRAFT 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[facility] Work Phone: [facility] 07-30-2002 poliovirus vaccine, inactivated Matt Sandra CRAFT 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 Work Phone: [facility] 06-14-1997 diphtheria, tetanus toxoids and acellular pertussis vaccine Matt Sandra CRAFT 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 Work Phone: [facility] 06-14-1997 haemophilus influenz ae type b vaccine, conjugate unspecified formulation Matt Sandra CRAFT 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[facility] Work Phone: [facility] 06-14-1997 measles, mumps and rubella virus vaccine Matt Sandra CRAFT 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[facility] Work Phone: [facility] 1996 diphtheria, tetanus toxoids and acellular pertussis vaccine Matt Sandra CRAFT 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 Work Phone: [facility] 1996 haemophilus influenz ae type b vaccine, conjugate unspecified formulation Matt Sandra CRAFT 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[facility] Work Phone: [facility] 1996 hepatitis B vaccine, adult dosage Matt Sandra CRAFT 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 Work Phone: [facility] 1996 poliovirus vaccine, inactivated Matt Sandra CRAFT 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 Work Phone: [facility] 1996 diphtheria, tetanus toxoids and acellular pertussis vaccine Matt Sandra CRAFT 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 Work Phone: [facility] 1996 haemophilus influenz ae type b vaccine, conjugate unspecified formulation Matt Sandra CRAFT 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 Work Phone: [facility] 1996 poliovirus vaccine, inactivated Matt Sandra CRAFT 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[employer] Work Phone: [facility] 1996 diphtheria, tetanus toxoids and acellular pertussis vaccine Matt Sandra APRN-[facility] Work Phone: [facility] 1996 haemophilus influenz ae type b vaccine, conjugate unspecified formulation Matt Sandra [facility] Work Phone: [facility] 1996 hepatitis B vaccine, adult dosage Matt Sandra CRAFT 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 Work Phone: [facility] 1996 poliovirus vaccine, inactivated Matt Sandra CRAFT 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 Work Phone: [facility] 1996 hepatitis B vaccine, adult dosage Matt Sandra CRAFT 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 Work Phone: [facility] Payers Date Payer Category Payer Medicaid [id number] 2022 Medicaid [id number] 2017 Unknown [id number] 1996 Unknown [id number] 2.16.84 [id number] 1996 Unknown [id number] 2.16.84 0.1.273862.3.579.2.593 1996 Unknown [id number] 2.16.84 0.1.984680.3.579.2.593 1996 Unknown [id number] 2.16.8 40.1.888080.3.579.2.1286 1996 Unknown [id number] 2.16.8 40.1.290779.3.579.2.1286 1996 Unknown [id number] 2.16.8 40.1.133762.3.579.2.1286 1996 Unknown [id number] 2.16.8 40.1.606664.3.579.2.1286 1996 Unknown [id number] 2.16.8 40.1.978396.3.579.2.1259 1996 Unknown [id number] 2.16.8 40.1.056484.3.579.2.1259 1996 Unknown [id number] 2.16.8 40.1.121285.3.579.2.9 1996 Unknown [id number] 2.16.8 40.1.076145.3.579.2.1259 1996 Unknown [id number] 2.16.8 40.1.779789.3.579.2.9 1996 Unknown [id number] 2.16.8 40.1.777770.3.579.2.9 1996 Unknown [id number] 2.16.8 40.1.589004.3.579.2.9 1996 Unknown [id number] 2.16.84 0.1.724718.3.579.2.1259 1996 Unknown [id number] 2.16.84 0.1.560358.3.579.2.9 1996 Unknown [id number] 2.16.84 0.1.639575.3.579.2.9 1996 Unknown [id number] 2.16.84 0.1.428312.3.579.2.9 1996 Unknown [id number] 2.16.84 0.1.836606.3.579.2.1259 1959 Unknown [id number] Social History Date Type Detail Facility Start: 07-04-2023 End: 07-03-2024 Tobacco smoking status MTIS Never smoked tobacco (finding) [facility] Start: 1995 Sex Assigned At Female F [facility] Start: 07-04-2023 End: 01-03-2024 Tobacco use and exposure Smokeless tobacco non-user [facility] Start: 12-05-2023 End: 07-10-2025 Alcoholic beverage intake Lifetime non-drinker (finding) [facility] Start: 12-05-2023 End: 12-11-2024 History of Social function [facility] Start: 12-05-2023 End: 12-11-2024 Tobacco use panel [facility] Start: 1995 Sex assigned at Not on file [facility] Start: 01-03-2024 End: 03-12-2024 Alcohol intake Current non-drinker of alcohol (finding) [facility] Do you belong to any clubs or organizations such as roman catholic groups, unions, fraternal or athletic groups, or school groups? No [facility] Are you now , , , , never or living with a partner? Never [facility] How often to you hav e a drink containing alcohol? Monthly or less [facility] How many standard dr inks containing alcohol do you have on a typical day? 1 or 2 [facility] How often do you hav e 6 or more drinks on 1 occasion? Less than monthly [facility] How hard is it for y ou to pay for the very basics like food, housing, medical care, and heating Somewhat hard [facility] Adolescent depressio n screening assessment 5 [facility] Do you feel stress - tense, restless, nervous, or anxious, or unable to sleep at night because your mind is troubled all the time - these days [OSQ] Rather much [facility] Start: 10-19-2019 Education 12 [facility] Start: 12-02-2024 [facility] Clinical Notes 01-03-2024 to 07-10-2025 Jo Ann Patino NP - 07/10/2025 2:10 PM DAVID Kaur - 06/26/2025 1:30 PM Ernie Weir LPN - 06/11/2025 2:00 PM DAVID [...] ASSESSMENT & PLAN ICD-10-CM 1. Third trimester ([facility]) Z34.93 POCT urinalysis dipstick manually resulted 2. 33 weeks gestation of ([facility]) Z3A.33 Return OB: Patient presents today [...] Chelsea Lopez DO documented in this encounter [facility] 06-26-2025 History of Presen t [...] ASSESSMENT & PLAN ICD-10-CM 1. Third trimester ([facility]) Z34.93 POCT urinalysis dipstick manually resulted 2. 31 weeks gestation of ([facility]) Z3A.31 Return OB: Patient presents today [...] of: DAVID Reid documented in this encounter [facility] 06-11-2025 History of Presen t [...] nursing note reviewed. Exam conducted with a shank tapper present. Vitals: Estimated body mass index is 34.06 kg/m as calculated from the following: Height as of 11/30/22: 5' 3 . Weight as of this encounter: 192 lb 4 oz. BP: 122/68 Patient's last menstrual period was 11/18/2024. ASSESSMENT & PLAN ICD-10-CM 1. Third trimester ([facility]) Z34.93 POCT urinalysis dipstick manually resulted 2. 29 weeks gestation of ([facility]) Z3A.29 3. Anemia affecting in third trimester ([facility]) O99.013 iron polysaccharides (ProFe) 391.3 (180 Fe) MG capsule 4. Excessive growth affecting management of , antepartum, single or unspecified fetus ([facility]) O36.60X0 Return OB: Patient presents today [...] Chelsea Lopez DO documented in this encounter [facility] 05-29-2025 History of Presen t [...] ASSESSMENT & PLAN ICD-10-CM 1. Second trimester ([facility]) Z34.92 POCT urinalysis dipstick manually resulted 2. 27 weeks gestation of ([facility]) Z3A.27 Return OB: Patient presents today [...] by Zulma Phelps MA on behalf of: DAVDI Reid documented in this encounter [facility] 05-02-2025 History of Presen t [...] Glucose tolerance, 1 hour 2. Second trimester ([facility]) Z34.92 POCT urinalysis dipstick manually resulted 3. 23 weeks gestation of ([facility]) Z3A.23 Return OB: Patient presents today [...] Chelsea Lopez DO documented in this encounter [facility] 04-03-2025 History of Presen t [...] of: DAVID Reid documented in this encounter [facility] 02-26-2025 History of Presen t [...] nursing note reviewed. Exam conducted with a shank tapper present. Vitals: Estimated body mass index is [...] or undercooked meat, and stay away from [facility]. Patient has been consulted regarding any further do's and don'ts of . Patient voiced understanding and all questions and concerns were answered. Orders Placed This Encounter Procedures POCT urinalysis dipstick manually resulted Follow Up: Patient is to return in 4 weeks for routine OB appointment. Documented by Audrey Weir LPN on behalf of: Chelsea Lopez DO documented in this encounter [facility] 12-11-2024 History of Presen t [...] nursing note reviewed. Exam conducted with a shank tapper present. Vitals: Estimated body mass index is [...] Chelsea Lopez DO documented in this encounter [facility] 04-02-2024 Evaluation note Authored July 03, 2024 3:25pm 29-year-old female referred to the GI clinic for evaluation of upper abdominal pain. +upper abdominal pain that has resolved few months ago. She states that she still gets intermittent abdominal discomfort but less severe than how it was Will check CBC, LFTs and Lipase Will arrange US of the upper abdomen [facility] Work Phone: [phone]) 848-705104-29-2024 History of Present illness Narrative* Matt Sandra, CRAFT 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[employer] - 03/12/2024 11:20 AM EDT Images from the original note were not included. [address] [place] [address] SUBJECTIVE: Patient ID: Tara Bruno is a [...] 10/12/2017 Performed by Sarabjit Odom MD at [facility] TONSILLECTOMY WISDOM TOOTH EXTRACTION Past Medical History: [...] JAY Knight 03/12/[address] [facility]03-28-2024 Miscellaneous Notes* Telephone Encounter - Mikala Murphy CMA - 02/09/2024 9:06 AM EDT Pt called and was in to see you yesterday 02/07 and is stuffed up today and coughing up yellow. Could you send in something to her local pharmacy? * Telephone Encounter - JAY Knight - 02/09/2024 9:06 AM EDT Christiano sent to [facility]. 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 * Telephone Encounter - Mikala Murphy CMA - 02/09/2024 9:06 AM EDT I called and read your note. Pt will get scheduled after this illness documented in this [facility]03-28-2024 Telephone encounter Note* Telephone Encounter - Mikala Murphy CMA - 02/09/2024 9:06 AM EDT Pt called and was in to see you yesterday 02/07 and is stuffed up today and coughing up yellow. Could you send in something to her local pharmacy? [facility]03-28-2024 Telephone encounter Note* Telephone Encounter - JAY Knight - 02/09/2024 9:06 AM EDT Kathieshi sent to [facility]. 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 [facility]03-28-2024 Telephone encounter Note* Telephone Encounter - Mikala Murphy CMA - 02/09/2024 9:06 AM EDT I called and read your note. Pt will get scheduled after this illness [facility]03-27-2024 History of Present illness Narrative* JAY Little - 02/08/2024 11:40 AM EDT [address] [place] [address] Patient: Tara Bruno Date of : 1995 [...] 10/12/2017 Performed by Sarabjit Odom MD at [facility] TONSILLECTOMY WISDOM TOOTH EXTRACTION Current Outpatient [...] LITTLE APRN-CNP 02/08/24 1255 [facility] History of Present illness Narrative* Matt Sandra, JAY - 01/03/2024 10:15 AM EST Images from the original note were not included. [address] [facility] [address] SUBJECTIVE: Patient ID: Tara Bruno is a 28 y.o. female. Chief Complaint Patient presents with Anxiety Tara presents today wishing to restart medication for her moods. She does feel she ideally depressed. Her concern is anxiety, irritability, and feels short tempered. Is managing deal of personal stressors. Custody issues with her children's father who lives out of state. Has graduated from [employer]. 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 Depression [...] 10/12/2017 Performed by Sarabjit Odom MD at [facility] TONSILLECTOMY WISDOM TOOTH EXTRACTION Past Medical [...] JAY Knight 01/03/24 1047 [facility] Diagnosis Well woman exam with routine gynecological exam Routine gynecological examination [facility] Diagnosis Anxiety and depression- Primary [facility]* Diagnosis Acute bacterial sinusitis- Primary Acute sinusitis, unspecified [facility]* Diagnosis Viral upper respiratory tract infection- Primary Acute upper respiratory infections of unspecified site Chills Chills (without fever) Epigastric pain Abdominal pain, epigastric Syncope and collapse Gastroesophageal reflux disease, unspecified whether esophagitis present documented [facility]* Diagnosis Anxiety and depression- Primary Nausea Nausea alone Syncope, unspecified syncope type [facility]* Diagnosis Second trimester state, incidental 12 weeks gestation of [facility] Diagnosis Second trimester state, incidental 18 weeks gestation of Screening, , for anatomic survey Encounter for anatomic survey Screening examination for STI Need for maternal serum alpha-protein (MSAFP) screening [facility] Diagnosis Diabetes mellitus screening Screening for diabetes mellitus Second trimester ([facility]HS-HCC) state, incidental 23 weeks gestation of ([facility]HS-HCC) [facility] Diagnosis Size of fetus inconsistent [...] be sent through Care Everywhere. * Depression ([place]) [facility]* Attachments The following attachments cannot be sent through Care Everywhere. * Acid Reflux and GERD in Adults Discharge Instructions ([place]) [facility] System[facility]* Attachments The following attachments cannot be sent through Care Everywhere. * Nausea and Vomiting, Adult ([place]) [facility] Summary Purpose Family History Relationship Condition [...] and content) DATE CREATED AUTHOR 05/10/2018 [facility] DATE CREATED AUTHOR AUTHOR'S ORGANIZ ATION 12/02/2022 [facility] DATE CREATED AUTHOR AUTHOR'S ORGANIZ ATION 02/28/2024 [facility] DATE CREATED AUTHOR AUTHOR'S ORGANIZ ATION 03/13/[address] [facility] DATE CREATED AUTHOR AUTHOR'S ORGANIZ ATION 07/12/[address] [facility] dical Specialists [employer] Care Teams (unrecognized sec tion and content) [...] July 03, 2024 End: July 03, 2024 Reading Intervention Teacher Relationship Specialty Start Date End Date Radha Calix PA [address] [place] [address] PCP - [facility] [employer]ICE DETENTION ATTENDANT 05/14/24 Reading Intervention Teacher Relationship Specialty Start Date End Date Radha Calix PA [address] [place] [address] PCP - [facility] 05/14/24 Reading Intervention Teacher Relationship Specialty Start Date End Date Matt Sandra, [facility] [address] [place] [address] PCP - General Family Medicine 10/16/19 Reading Intervention Teacher Relationship Specialty Start Date End Date Matt Sandra, [facility] [address] [place] [address] PCP - General Family Medicine 10/16/19 Reading Intervention Teacher Relationship Specialty Start Date End Date Matt Sandra, [facility] [address] [place] [address] PCP - General Family Medicine 10/16/19 Reading Intervention Teacher Relationship Specialty Start Date End Date Radha Calix PA PCP - [facility] [place] [facility] 05/14/24 Reading Intervention Teacher Relationship Specialty Start Date End Date Radha Calix PA NPI: PCP - [facility] [facility] 05/14/24 Reading Intervention Teacher Relationship Specialty Start Date End Date Radha Calix PA NPI: PCP - [facility] [place] [facility] 05/14/24 Reading Intervention Teacher Relationship Specialty Start Date End Date Radha Calix PA NPI: PCP - [facility] [place] [facility] 05/14/24 Reading Intervention Teacher Relationship Specialty Start Date End Date Radha Calix PA NPI: PCP - [facility] [place] [facility] 05/14/24 Reading Intervention Teacher Relationship Specialty Start Date End Date Radha Calix PA PCP - [facility] [place] [facility] 05/14/24 Reading Intervention Teacher Relationship Specialty Start Date End Date Radha Calix PA PCP - [facility] [place] [facility] 05/14/24 Reading Intervention Teacher Relationship Specialty Start Date End Date Radha Calix PA NPI: PCP - [facility] [place] [facility] 05/14/24 Reading Intervention Teacher Relationship Specialty Start Date End Date Radha Calix PA PCP - [facility] [place] [facility] 05/14/24 Reading Intervention Teacher Relationship Specialty Start Date End Date Radha Calix PA PCP - [facility] 05/14/24 Goals (unrecognized section and content) Goals [...] in the mornin g times 3 days Reason Comments Routine [...] BE BASED ON THE PRIMARY CLINICAL RECORDS. [employer] provides no warranty or guarantee of the accuracy or completeness of information in this document.
[2025-07-27 10:14] VITALS: BP 119/71; PULSE 89; TEMP 36.7
== END 2025-07-27 10:47 | disposition home or self-care (01) ==
LOC: FBCO 10:07 → FBC 10:08
PROVIDERS: PCP Nurse Practitioner; Visit Provider Obstetrics & Gynecology
DX: O36.63X0 Maternal care for excessive fetal growth, third trimester, not applicable or unspecified (principal); Z3A.35 35 weeks gestation of pregnancy
CPT/HCPCS: 59025

== ENCOUNTER 2025-07-29 19:49 | Outpatient (REF) | payer MEDICAID, SELFPAY ==
--- OUTSIDE RECORDS SUMMARY | 2025-07-29 11:00 | XMS_ITS | Encounter Summary ---
Author Organization [facility] Address [address] [facility] [place] [address] Care Team Providers Care Fine Grade Bulldozer Operator Name Role Phone CalixRadha Unavailable Encounter Details Date Type Department Care Team (Latest Contact Info) Description 07/29/2025 11:00 AM EDT Ancillary Procedure MANDEEP HERNANDEZ [address] [place] [address] Excessive growth affecting management of in third trimester, single or unspecified fetus ([facility]) Social History Tobacco Use Types Packs/Day Years [...] EDT Routine NOMRuth HERNANDEZ [address] [place] [address] Henok Lopez DO [address] [place], [place] [id number] 12/16/2025 2:00 PM EST Office Visit MANDEEP HERNANDEZ [address] [place] [address] Henok Lopez, [address] [place] [address] Pending Results Name Type Priority Associated Diagnoses Date /Time US OB follow up transabdominal approach Imaging Routine Excessive growth affecting management of in third trimester, single or unspecified fetus ([facility]) 07/29/2025 11:19 AM EDT documented as of this encounter Visit Diagnoses Diagnosis Excessive growth affecting management of in third trimester, single or unspecified fetus ([facility]) documented in this encounter Care Teams Fine Grade Bulldozer Operator Relationship Specialty Start Date End Date Radha Calix PA PCP - MANDEEP Ortiz CHIEF OF HOSPITAL MEDICINE 05/14/24 documented as of this encounter
--- OUTSIDE RECORDS SUMMARY | 2025-07-29 11:30 | XMS_ITS | Encounter Summary ---
Author Organization [facility] Address [address] [facility] [place] [address] Care Team Providers Care Director Data Analytics Name Role Phone Radha Calix Unavailable [phone] Reason for Visit * Reason Comments Routine Visit Encounter Details Date Type Department Care Team ([facility] Contact Info) Description 07/29/2025 11:30 AM EDT Routine MANDEEP [place] OBGYN [address] [facility] [place] [address] Henok Lopez DO [address] [facility] [place] [address] Third trimester ([facility]); 36 weeks gestation of ([facility]) Social History Tobacco Use Types Packs/Day [...] this encounter Progress Notes * Neyda Goldberg, NET APPLICATIONS DEVELOPER - 07/29/2025 11:30 AM EDT Reason for [...] nursing note reviewed. Exam conducted with a supervisor dials present. Vitals: Estimated body mass index is 35.1 kg/m?? as calculated from the following: Height as of 11/30/22: 5' 3 . Weight as of this encounter: 198 lb 1.9 oz. BP: 110/68 Patient's last menstrual period was 11/18/2024. ASSESSMENT & PLAN ICD-10-CM 1. Third trimester ([facility]) Z34.93 CULTURE, GROUP B STREP WITH SUSCEPTIBLITY CULTURE, GROUP B STREP WITH SUSCEPTIBLITY POCT urinalysis dipstick manually resulted 2. 36 weeks gestation of ([facility]) Z3A.36 POCT urinalysis dipstick manually resulted Patient presents today for a routine obstetrics appointment. Patient is currently 36w1d with a Estimated Date of Delivery: 08/25/25. Discussed delivery next Tuesday for LGA. Patietn and spouse agreeable for IOL. Patient to sign IOL consents prior to leaving office today. Patient to arrive at [facility] on Tuesday night on 08/04/25 @6:30pm on Tuesday. GBS was obtained without difficulty and patientsigned IOL consent. Spoke with Hope at [facility] to add patient to the books for Tuesday. Patient to schedule for 6 week appointment. Documented by Neyda Goldberg LPN on behalf of: Henok Lopez DO documented in this encounter Plan of Treatment Upcoming Encounters Date Type Department Care Team (Late st Contact Info) Description 08/05/2025 10:50 AM EDT Routine MANDEEP HERNANDEZ [address] [facility] [place] [phone] Henok Lopez, DO [address] [facility] [address] [place], [place] [id number] 12/16/2025 2:00 PM EST Office Visit MANDEEP HERNANDEZ [address] [facility] [place] [phone] Henok Lopez, DO [address] [facility] [address] [place], [place] [phone] Scheduled Orders Name Type Priority Associated Diagnoses Orde r Schedule CULTURE, GROUP B STREP WITH SUSCEPTIBLITY Lab Routine Third trimester ([facility]) Expected: 07/29/2025, Expires: 07/29/2026 documented as of this encounter Procedures Procedure Name Priority Date/Time Associated Diagnosis Comments POCT URINALYSIS DIPSTICK Routine 07/29/2025 11:44 AM EDT Third trimester ([facility]) 36 weeks gestation of ([facility]) documented in this encounter Results * [...] ([facility]) documented in this encounter Care Teams Director Data Analytics Relationship Specialty Start Date End Date Radha Calix PA PCP - [facility] BODY MAKE UP ARTIST 05/14/24 documented as of this encounter
--- OUTSIDE RECORDS SUMMARY | 2025-07-29 19:52 | XMS_ITS | Encounter Summary ---
Author Organization [facility] Address [address] [facility] [place] [address] Care Team Providers Care Study Hall Supervisor Name Role Phone Radha Calix Unavailable Encounter Details Date Type Department Care Team (Late Contact Info) Description 07/25/2025 Abstract MANDEEP HERNANDEZ [address] [place] [address] Henok Lopez DO [address] [place], [place] [address] Social History Tobacco Use Types Packs/Day Years [...] Department Care Team (Late Contact Info) Description 08/05/2025 10:50 AM EDT Routine MANDEEP HERNANDEZ [address] [place] [address] Henok Lopez DO [address] [place], [place] [address] 12/16/2025 2:00 PM EST Office Visit MANDEEP BRADLEYGYN [address] [place] [phone] Henok Lopez DO [address] [facility] [place] [address] documented as of this encounter Visit Diagnoses Not on filedocumented in this encounter Care Teams Study Hall Supervisor Relationship Specialty Start Date End Date Radha Calix PA PCP - NOMRuth Ortiz WIDE PIECE GOODS INSPECTOR 05/14/24 documented as of this encounter
--- OUTSIDE RECORDS SUMMARY | 2025-07-29 19:52 | XMS_ITS | Encounter Summary ---
Author Organization [employer] Address [id number] [place] [address] Care Team Providers Care Sharepoint Trainer Name Role Phone Fabiana Sandra Primary Care Provid er Encounter Details Date Type Department Care Team (Late st Contact Info) Description 05/08/2018 Refill [facility] Obstetrics/[facility]necology [address] [place] [address] Clari Slaughter MA Social History Tobacco [...] on filedocumented in this encounter Care Teams Sharepoint Trainer Relationship Specialty Start Date End Date Fabiana Sandra APRN-DOLL MAKER PCP - General Family Medicine 10/16/19 documented as of this encounter
--- OUTSIDE RECORDS SUMMARY | 2025-07-29 19:53 | XMS_ITS | Encounter Summary ---
Author Organization [employer] Address [id number] [place] [address] Care Team Providers Care Ncr Operator Name Role Phone Fabiana Sandra APRN-REGULATORY AFFAIRS ASSISTANT Primary Care Provid er Encounter Details Date Type Department Care Team (Late st Contact Info) Description 03/15/2024 Telephone [facility] Internal Medicine - Family Medicine [address] [facility] [phone] Mikala Murphy CMA Social History Tobacco Use [...] any clubs o r organizations such as baptist groups, unions, fraternal or athletic groups, or [...] Date Recorded Total Score 0 03/12/2024 [facility] of Occupat ional Health - Occupational [...] documented as of this encounter Care Teams Ncr Operator Relationship Specialty Start Date End Date Fabiana Sandra APRN-CNP PCP - General Family Medicine 10/16/19 documented as of this encounter
--- OUTSIDE RECORDS SUMMARY | 2025-07-29 19:53 | XMS_ITS | Encounter Summary ---
Author Organization [facility] Address [address] [place] [address] Care Team Providers Care Cardiovascular Or Nurse Name Role Phone Radha Calix Unavailable [phone] Encounter Details Date Type Department Care Team (Late st Contact Info) Description 05/07/2025 Abstract [facility] [address] [place] [phone] Josi Vizcaino, BETHEL [address] [place] [address] Social History Tobacco Use Types Packs/Day Years [...] 10:50 AM EDT Routine MANDEEP HERNANDEZ [address] [place] [phone] Henok Lopez DO [address] [place] [address] 12/16/2025 2:00 PM EST Office Visit MANDEEP HERNANDEZ [address] [facility] [place] [address] Henok Lopez DO [address] [facility] [place] [address] documented as of this encounter Visit Diagnoses Not on filedocumented in this encounter Care Teams Cardiovascular Or Nurse Relationship Specialty Start Date End Date Radha Calix PA PCP - [facility] DRY WALL APPLICATOR 05/14/24 documented as of this encounter
--- OUTSIDE RECORDS SUMMARY | 2025-07-29 19:53 | XMS_ITS | Encounter Summary ---
Author Organization [employer] Address [id number] [place] [address] Care Team Providers Care Parking Lot Manager Name Role Phone Fabiana Sandra APRN-CROWN CERAMIST Primary Care Provid er Encounter Details Date Type Department Care Team (Late st Contact Info) Description 07/05/2024 Orders Only [facility] Internal Medicine - Family Medicine [address] [facility] [place] [address] Ellie Ruvalcaba CMA Epigastric pain; Right upper [...] often do you attend chur ch or moravian services? Never 10/15/2021 Do you belong to [...] Answer Date Recorded Total Score 0 03/12/2024 [facility] [place] of Occupat ional Health - Occupational Stress [...] Gastroenterology ([facility]) (07/05/2024 4:46 PM EDT) us Fabaina THOMPSON OUTPATIENT REFERRAL ORDERABLES Final Result MANUALLY [...] documented as of this encounter Care Teams Parking Lot Manager Relationship Specialty Start Date End Date Fabiana Sandra APRN-CNP PCP - General Family Medicine 10/16/19 documented as of this encounter
--- OUTSIDE RECORDS SUMMARY | 2025-07-29 19:53 | XMS_ITS | Encounter Summary ---
Author Organization [employer] Address [id number] [place] [address] Care Team Providers Care Manager Internship Name Role Phone Fabiana Sandra APRN-DREDGEMASTER Primary Care Provid er Encounter Details Date Type Department Care Team (Late st Contact Info) Description 03/30/2024 Orders Only [facility] Internal Medicine - Family Medicine [address] [facility] [place] [address] External, Scanning Provider Social History Tobacco Use [...] often do you attend chur ch or cheondoism services? Never 10/15/2021 Do you belong to any clubs o r organizations such as christian groups, unions, fraternal or athletic groups, or [...] Answer Date Recorded Total Score 0 03/12/2024 [facility] of Occupat ional Health - Occupational [...] Recorded Do you need help finding a [facility] career center and/or a training [...] as of this encounter Care Teams Manager Internship Relationship Specialty Start Date End Date Fabiana Sandra APRN-DREDGEMASTER PCP - General Family Medicine 10/16/19 documented as of this encounter
--- OUTSIDE RECORDS SUMMARY | 2025-07-29 19:53 | XMS_ITS | Encounter Summary ---
Author Organization [employer] Address [id number] [place] [address] Care Team Providers Care Textile Supervisor Name Role Phone Fabiana Sandra Primary Care Provid er Encounter Details Date Type Department Care Team (Late st Contact Info) Description 09/14/2017 Telephone [facility] [address] [place] [address] Sarabjit Odom MD [facility] [place], [place] [address] Social History Tobacco Use Types Packs/Day Years [...] on filedocumented in this encounter Care Teams Textile Supervisor Relationship Specialty Start Date End Date Fabiana Sandra APRN-CNP PCP - General Family Medicine 10/16/19 documented as of this encounter
--- OUTSIDE RECORDS SUMMARY | 2025-07-29 19:53 | XMS_ITS | Clinical Summary ---
Author Organization [facility] Address [address] [facility] [place] [address] Care Team Providers Care Workers Compensation Coordinator Name Role Phone Radha Calix Unavailable [phone] Allergies Active Allergy Reactions Criticality Noted [...] Encounters Date Type Department Care Team Description 07/29/2025 11:30 AM EDT Routine [facility] [place] [facility] [address] [place] [address] Henok Lopez, Third trimester ([facility]); 36 weeks gestation of ([facility]) 07/29/2025 11:00 AM EDT Ancillary Procedure [facility] [place] [facility] [address] [facility] [place] [address] Excessive growth affecting management of in third trimester, single or unspecified fetus ([facility]) 07/25/2025 Abstract [facility] [place] [facility] [address] [facility] [address] Henok Lopez, 07/25/2025 Abstract [facility] [place] [facility] [address] [facility] [place] [address] Henok Lopez, 07/24/2025 Clinisync Result Encounter NOMS External Department Unsolicited Jo Ann Patino, COMPUTER BUILDER 07/17/2025 Clinisync Result Encounter NOMS External Department Unsolicited CareyJo Ann monterroso, COMPUTER BUILDER 07/10/2025 2:10 PM EDT Routine [place] [address] Henok Lopez, Excessive growth affecting management of in third trimester, single or unspecified fetus ([facility]) (Primary Dx); Third trimester ([facility]); 33 weeks gestation of ([facility]); Hematuria, unspecified type 07/10/2025 1:30 PM EDT Ancillary Procedure [facility] [place] [facility] [address] [place] [address] Excessive growth affecting management of , antepartum, single or unspecified fetus ([facility]) 06/26/2025 1:30 PM EDT [place] [address] Josi Cardoza PA Third trimester ([facility]); 31 weeks gestation of ([facility]) 06/26/2025 Bamboo flowsheet [facility] [place] [facility] [place] [address] Josi Cardoza PA 06/11/2025 2:00 PM EDT Routine [facility] [place] [address] Henok Lopez DO Third trimester ([facility]); 29 weeks gestation of ([facility]); Anemia affecting in third trimester ([facility]); Excessive growth affecting management of , antepartum, single or unspecified fetus ([facility]) 06/11/2025 1:30 PM EDT Ancillary Procedure [facility] Christian [facility] [place] [address] Size of fetus inconsistent with dates in second trimester ([facility]) 05/31/2025 Abstract [facility] [place] [address] Henok Lopez DO 05/29/2025 1:20 PM EDT Routine [facility] [place] [facility] [place] [address] Josi Cardoza PA Size of fetus inconsistent with dates in second trimester ([facility]) (Primary Dx); Second trimester ([facility]); 27 weeks gestation of ([facility]) 05/29/2025 Clinisync Result Encounter NOMS External Department Unsolicited Henok Lopez DO 05/09/2025 Patient Outreach [facility] [address] [place] [address] Josi Vizcaino LPN 05/07/2025 Abstract [facility] [address] [place] [address] Josi Vizcaino LPN 05/02/2025 8:50 [place] [address] Henok Lopez DO Diabetes mellitus screening; Second trimester ([facility]); 23 weeks gestation of ([facility]) 05/02/2025 Bamboo flowsheet MANDEEP HERNANDEZ [address] [place] [address] [place] [address] Henok Lopez DO from Last 3 Months [...] 1.9 oz) 07/29/2025 11:39 AM EDT Height 160 cm (5' 3 ) 11/30/2022 12:00 PM EST Body Mass Index 35.1 11/30/2022 12:00 PM EST Plan of Treatment Upcoming Encounters Date Type Department Care Team (Late st Contact Info) Description 08/05/2025 10:50 AM EDT Routine MANDEEP HERNANDEZ [address] [place] [address] [place] [address] Henok Lopez DO [facility] [address] [place], [place] [id number] 12/16/2025 2:00 PM EST Office Visit MANDEEP HERNANDEZ [address] [place] [address] [place] [address] Henok Lopez, DO [address] [facility] [place] [address] Health Maintenance Due Date Last Done Comments Influenza Vaccine (#1) 2025 Procedures Procedure Name Priority Date/Time Associated Diagnosis Comments POCT URINALYSIS DIPSTICK Routine 07/29/2025 11:44 AM EDT Third trimester ([facility]) 36 weeks gestation of ([facility]) US OB BPP W NON-STRESS 07/24/2025 11:09 AM EDT US OB BPP W NON-STRESS 07/17/2025 3:34 PM EDT POCT URINALYSIS DIPSTICK Routine 07/10/2025 2:19 PM EDT Third trimester ([facility]) US OB FOLLOW UP TRANSABDOMINAL APPROACH Routine 07/10/2025 1:48 PM EDT Excessive growth affecting management of , antepartum, single or unspecified fetus ([facility]) POCT URINALYSIS DIPSTICK Routine 06/26/2025 1:39 PM EDT Third trimester ([facility]) POCT URINALYSIS DIPSTICK Routine 06/11/2025 2:52 PM EDT Third trimester ([facility]) US OB FOLLOW UP TRANSABDOMINAL APPROACH Routine 06/11/2025 2:03 PM EDT Size of fetus inconsistent with dates in second trimester ([facility]) POCT URINALYSIS DIPSTICK Routine 05/29/2025 1:39 PM EDT Second trimester ([facility]) GLUCOSE 1 HOUR Routine 05/29/2025 11:24 AM EDT ALL CBC WITH AUTO DIFF Routine 11:24 AM EDT POCT URINALYSIS DIPSTICK Routine 05/02/2025 9:13 AM EDT Second trimester ([facility]) from Last 3 Months Results * POCT urinalysis dipstick manually resulted (07/29/2025 11:44 AM EDT) Only the most recent of6 resultswithin the time period is included. Color, [...] Positive Urine 07/29/2025 11:4 4 AM EDT us Henok John DO POINT OF CARE TEST ENTER/EDIT OR DERABLES Final Result * US OB BPP W NON-STRESS (07/24/2025 11:09 AM EDT) Only the most recent of2 resultswithin the time period is included. Anatomical Region Laterality Modality Other 07/24/2025 11:0 9 AM EDT Narrative 07/24/2025 11:[place] [address] Ultrasound Report Signed Patient: TARA ISLAS MR#: [id number] : 1995 Acct:[id number] Age/Sex: 30 / F ADM Date: 07/24/25 Loc: US Attending Dr: Jo Ann Patino Ordering Physician: Jo Ann Patino Date of Service: 07/24/25 Procedure(s): US OB BPP w non-stress Accession Number(s): [id number] cc: MATT BRODERICK Kristina [place] [address] Patient Name: TARA ISLAS MRN: [id number] date: 1995 Sex: F Assigned Patient Location: [facility] Current Patient Location: Accession/Order Number: [id number] Exam Date: 07/24/2025 10:02 Report Date: 07/24/2025 11:09 At the request of: JO ANN PATINO Procedure: US OB BPP w non-stress BIOPHYSICAL PROFILE: CLINICAL INFORMATION: Excessive growth COMPARISON: 07/17/2025 There is a single live intrauterine gestation in cephalic presentation. The reported gestational age is 35 weeks 3 days. The heart rate beats per minute. FINDINGS: TONE: 1 or [...] Kuo M.D. 07/24/2025 11:09 AM Dictation Location: [place] Electronically authenticated by: [id number] Y Date: 07/24/2025 11:09 Dictated By: Audrey Kuo M.D. Signed By: 07/24/25 1111 DD/ 1109 TD/TT: Animal Ride Manager: Procedure Note Radiology, Radiologist, - 07/24/2025 [place] [address] Ultrasound Report Signed Patient: TARA ISLAS AMR#: [id number] : 1995Acct:[id number] Age/Sex: 30 / FADM Date: 07/24/25 Loc: US Attending Dr: Jo Ann Patino Ordering Physician: Jo Ann Patino Date of Service: 07/24/25 Procedure(s): US OB BPP w non-stress Accession Number(s): [id number] cc: MATT BRODERICK ; Jo Ann Patino [place] [id number] Patient Name: TARA ISLAS MRN: [id number] date: 1995 Sex: F Assigned Patient Location: [facility] Current Patient Location: Accession/Order Number: [id number] Exam Date: 07/24/2025 10:02 Report Date: 07/24/2025 11:09 At the request of: JO ANN PATINO Procedure: US OB BPP w non-stress BIOPHYSICAL PROFILE: CLINICAL INFORMATION: Excessive growth COMPARISON: 07/17/2025 There is a single live intrauterine gestation in cephalic presentation.The reported gestational age is 35 weeks 3 days. The heart [id number] beats per minute. FINDINGS: TONE: 1 or [...] Kuo M.D. 07/24/2025 11:09 AM Dictation Location: [place] [address] Electronically authenticated by: [id number] Y Date: 1:09 Dictated By: Audrey Kuo M.D. Signed By:07/24/25 1111 DD/ 1109 TD/TT: Animal Ride Manager: us Jo Annkarlee Patino [facility] Final Resul t * US OB follow up transabdominal approach [...] GLUCOSE 1 HOUR (05/29/2025 11:24 AM EDT) Pathologist [facility] GLUCOSE 1 HOUR 129 <130 mg/dL [facility] 05/29/2025 11:2 4 AM EDT 05/29/2025 11:25 AM EDT Narrative [facility] - 05/29/2025 11:40 AM EDT us Henok John DO LAB BLOOD ORDERABLES Final Resul t [facility] * (ABNORMAL) ALL CBC WITH AUTO DIFF (05/29/2025 11:24 AM EDT) Pathologist [facility] TB WBC 9.7 4.0 - 11.0 10 [...] Narrative [facility] - 05/29/2025 11:38 AM EDT us Henok Lopez DO [facility] Final Result [facility] from Last 3 Months Insurance DIANA [facility] MEDICAID [place] Care Teams Workers Compensation Coordinator Relationship Specialty Start Date End Date Radha Calix PA PCP - [facility] TAPE DECK INSTALLER 05/14/24
--- OUTSIDE RECORDS SUMMARY | 2025-07-29 19:53 | XMS_ITS | Encounter Summary ---
Author Organization [facility] Address [address] [facility] [place] [address] Care Team Providers Care Wardrobe Supervisor Name Role Phone CalixRadha Unavailable Encounter Details Date Type Department Care Team (Late st Contact Info) Description 07/17/2025 Clinisync Result Encounter NOMS External Department Unsolicited Norm Patino, RUSS [address] [facility] [place] [address] Social History Tobacco Use Types Packs/Day [...] Info) Description 08/05/2025 10:50 AM EDT Routine [facility] [place] HERNANDEZ [address] [place] [address] Henok Lopez DO [address] [place], [place] [address] 12/16/2025 2:00 PM EST Office Visit NOMRuth HERNANDEZ [address] [place] [address] Henok Lopez, DO [address] [facility] [place] [address] documented as of this encounter Procedures Procedure Name Priority Date/Time Associated Diagnosis Comments US OB BPP W NON-STRESS 07/17/2025 3:34 PM EDT documented in this encounter Results * US OB BPP W NON-STRESS (07/17/2025 3:34 PM EDT) Anatomical Region Laterality Modality Other 07/17/2025 3:34 PM EDT Narrative 07/17/2025 3:37 PM EDT [address] [address] Ultrasound Report Signed Patient: TARA ISLAS MR#: [id number] : 1995 Acct:[id number] Age/Sex: 30 / F ADM Date: 07/17/25 Loc: [facility] 251-[address]: Norm Patino Ordering Physician: Norm Patino Date of Service: 07/17/25 Procedure(s): US OB BPP w non-stress Accession Number(s): [id number] cc: MATT BRODERICK Kristina The [address] [address] Patient Name: TARA ISLAS MRN: [id number] date: 1995 Sex: F Assigned Patient Location: [facility] Current Patient Location: [facility] Accession/Order Number: [id number] Exam Date: 07/17/2025 15:03 Report Date: 07/17/2025 15:34 At the request of: NORM PATINO Procedure: US OB BPP w non-stress Biophysical profile. Reason for exam: Excessive growth COMPARISON: None TECHNIQUE: Transabdominal imaging of the gravid uterus was obtained. FINDINGS: The door to door sales representative reports a BPP of 8 out of 8. BENNETT is normal at 15.6 cm. heart rate 145 bpm. US/US OB BPP w non-stress IMPRESSION: BPP 8 out of 8. Impression dictated by: Aaron Acevedo Jr., D.O. 07/17/2025 3:34 PM Dictation Location: [place] [address] Electronically authenticated by: [id number] Y Date: 07/17/2025 15:34 Dictated By: Aaron Acevedo M.D. Signed By: 07/17/25 1537 DD/ 1534 TD/TT: Belt Weaver: Procedure Note Radiology, Radiologist, MD - 07/17/2025 [place] [address] Ultrasound Report Signed Patient: TARA ISLAS AMR#: [id number] : 1995Acct:[id number] Age/Sex: 30 / FADM Date: 07/17/25 Loc: [facility] 251-[address]: Norm Patino Ordering Physician: Norm Patino Date of Service: 07/17/25 Procedure(s): US OB BPP w non-stress Accession Number(s): [id number] cc: MATT BRODERICK Kristina The [place] [address] Patient Name: TARA ISLAS MRN: [id number] date: 1995 Sex: F Assigned Patient Location: [facility] Current Patient Location: [facility] Accession/Order Number: [id number] Exam Date: 07/17/2025 15:03 Report Date: 07/17/2025 15:34 At the request of: NORM PATINO Procedure: US OB BPP w non-stress Biophysical profile. Reason for exam: Excessive growth COMPARISON: None TECHNIQUE: Transabdominal imaging of the gravid uterus was obtained. FINDINGS: The door to door sales representative reports a BPP of 8 out of 8. BENNETT is normal at15.6 cm. heart rate 145 bpm. US/US OB BPP w non-stress IMPRESSION: BPP 8 out of 8. Impression dictated by: Aaron Acevedo Jr., D.O. 07/17/2025 3:34 PM Dictation Location: [place] [address] Electronically authenticated by: [id number] Y Date: 5:34 Dictated By: Aaron Acevedo M.D. Signed By:07/17/25 1537 DD/ 1534 TD/TT: Belt Weaver: Norm Patino HELIX COIL WINDER [facility] Final Resul t documented in this encounter Visit Diagnoses Not on filedocumented in this encounter Care Teams Wardrobe Supervisor Relationship Specialty Start Date End Date Radha Calix PA PCP - N[facility]uth Ortiz VALIDATION TECHNICIAN 05/14/24 documented as of this encounter
--- OUTSIDE RECORDS SUMMARY | 2025-07-29 19:53 | XMS_ITS | Encounter Summary ---
Author Organization [facility] Address [id number] [place] [address] Care Team Providers Care Enterer Name Role Phone Fabiana Sandra APRN-DIRECTOR DATABASE Primary Care Provid er Encounter Details Date Type Department Care Team (Late st Contact Info) Description 04/15/2025 Orders Only [facility] Internal Medicine - Family Medicine [address] [place] [address] Ref Prov, [place] [address] Social History Tobacco Use Types Packs/Day Years [...] often do you attend chur ch or scientology services? Never 10/15/2021 Do you belong to [...] Answer Date Recorded Total Score 0 03/12/2024 [facility] - Occupational Stress [...] documented as of this encounter Care Teams Enterer Relationship Specialty Start Date End Date Fabiana Sandra, KIM-DIRECTOR DATABASE PCP - General Family Medicine 10/16/19 documented as of this encounter
--- OUTSIDE RECORDS SUMMARY | 2025-07-29 19:53 | XMS_ITS | Encounter Summary ---
Author Organization [facility] Address [address] [facility] [place] [address] Care Team Providers Care Front Counter Attendant Name Role Phone CalixRadha Unavailable [phone] Encounter Details Date Type Department Care Team (Late st Contact Info) Description 07/24/2025 Clinisync Result Encounter NOMS External Department Unsolicited Norm Patino, RUSS [address] [facility] [place] [address] Social History Tobacco Use Types Packs/Day [...] AM EDT Routine [facility] Michelle HERNANDEZ [address] [place] [address] Henok Lopez DO [address] [place], [place] [address] 12/16/2025 2:00 PM EST Office Visit NOMRuth HERNANDEZ [address] [place] [address] Henok Lopez, DO [address] [facility] [place] [address] documented as of this encounter Procedures Procedure Name Priority Date/Time Associated Diagnosis Comments US OB BPP W NON-STRESS 07/24/2025 11:09 AM EDT documented in this encounter Results * US OB BPP W NON-STRESS (07/24/2025 11:09 AM EDT) Anatomical Region Laterality Modality Other 07/24/2025 11:0 9 AM EDT Narrative 07/24/2025 11:11 AM EDT [address] [place] [address] [address] Ultrasound Report Signed Patient: TARA ISLAS MR#: [id number] : 1995 Acct:[id number] Age/Sex: 30 / F ADM Date: 07/24/25 Loc: US Attending Dr: Norm Patino Ordering Physician: Norm Patino Date of Service: 07/24/25 Procedure(s): US OB BPP w non-stress Accession Number(s): [id number] cc: MATT BRODERICK Kristina [address] [address] Patient Name: TARA ISLAS MRN: [facility]:[id number] date: 1995 Sex: F Assigned Patient Location: [facility] Current Patient Location: Accession/Order Number: [id number] Exam Date: 07/24/2025 10:02 Report Date: 07/24/2025 11:09 At the request of: NORM PATINO Procedure: US OB BPP w non-stress BIOPHYSICAL PROFILE: CLINICAL INFORMATION: Excessive growth COMPARISON: 07/17/2025 There is a single live intrauterine gestation in cephalic presentation. The reported gestational age is 35 weeks 3 days. The heart rate [id number] beats per minute. FINDINGS: TONE: 1 or [...] Kuo M.D. 07/24/2025 11:09 AM Dictation Location: [place] Electronically authenticated by: [id number] Y Date: 07/24/2025 11:09 Dictated By: Audrey Kuo M.D. Signed By: 07/24/25 1111 DD/ 1109 TD/TT: Electric Lineman: Procedure Note Radiology, Radiologist, MD - 07/24/2025 [place] [address] Ultrasound Report Signed Patient: TARA ISLAS AMR#: [id number] : 1995Acct:[id number] Age/Sex: 30 FADM Date: 07/24/25 Loc: US Attending Dr: Norm Patino Ordering Physician: Norm Patino Date of Service: 07/24/25 Procedure(s): US OB BPP w non-stress Accession Number(s): [id number] cc: MATT BRODERICK Kristina The [place] [id number] Patient Name: TARA ISLAS MRN: [id number] date: 1995 Sex: F Assigned Patient Location: [facility] Current Patient Location: Accession/Order Number: [id number] Exam Date: 07/24/2025 10:02 Report Date: 07/24/2025 11:09 At the request of: NORM PATINO Procedure: US OB BPP w non-stress BIOPHYSICAL PROFILE: CLINICAL INFORMATION: Excessive growth COMPARISON: 07/17/2025 There is a single live intrauterine gestation in cephalic presentation.The reported gestational age is 35 weeks 3 days. The heart [id number] beats per minute. FINDINGS: TONE: 1 or [...] Kuo M.D. 07/24/2025 11:09 AM Dictation Location: [facility] Electronically authenticated by: [id number] Y Date: 1:09 Dictated By: Audrey Kuo M.D. Signed By:07/24/25 1111 DD/ 1109 TD/TT: Electric Lineman: Norm Patino MERCHANT BANKER [facility] Final Resul t documented in this encounter Visit Diagnoses Not on filedocumented in this encounter Care Teams Front Counter Attendant Relationship Specialty Start Date End Date Radha Calix PA PCP - NOMRuth Ortiz DOCUMENT CONTROL SUPERVISOR 05/14/24 documented as of this encounter
--- OUTSIDE RECORDS SUMMARY | 2025-07-29 19:53 | XMS_ITS | Encounter Summary ---
Author Organization [facility] Address [address] [facility] [place] [address] Care Team Providers Care Pot Holder Binder Name Role Phone Radha Calix Unavailable [phone] Encounter Details Date Type Department Care Team (Late st Contact Info) Description 04/04/2025 Results Follow-Up MANDEEP [place] OBGYFany [address] [place] [address] Hemalatha Fatima LPN [address] [employer] [place] [phone] RECURRENT VAGINITIS (HTRX) Social History Tobacco Use [...] Description 08/05/2025 10:50 AM EDT Routine NOMRuth Robersonue OBGYN [address] [facility] [place] [address] Henok Lopez, DO [address] [facility] [place] [address] 12/16/2025 2:00 PM EST Office Visit [facility]S Michelle OBGYN [address] [facility] [place] [address] Henok Lopez, DO [address] [facility] [place] [address] documented as of this encounter Visit Diagnoses Not on filedocumented in this encounter Care Teams Pot Holder Binder Relationship Specialty Start Date End Date Radha Calix PA PCP - [facility] Diana VALVE LAPPER 05/14/24 documented as of this encounter
--- OUTSIDE RECORDS SUMMARY | 2025-07-29 19:53 | XMS_ITS | Encounter Summary ---
Author Organization [facility] Address [address] [facility] [place] [address] Care Team Providers Care Banking Paralegal Name Role Phone Rahda Calix Unavailable [phone] Encounter Details Date Type Department Care Team (Late Contact Info) Description 07/25/2025 Abstract MANDEEP HERNANDEZ [address] [place] [address] Henok Lopez DO [address] [place], [place] [address] Social History Tobacco Use Types Packs/Day Years [...] EDT Routine MANDEEP HERNANDEZ [address] [place] [address] Henok Lopez DO [address] [place], [place] [address] 12/16/2025 2:00 PM EST Office Visit MANDEEP BRADLEYGYN [address] [facility] [place] [address] Henok Lopez DO [address] [facility] [place] [address] documented as of this encounter Visit Diagnoses Not on filedocumented in this encounter Care Teams Banking Paralegal Relationship Specialty Start Date End Date Radha Calix PA PCP - NOMRuth Ortiz HEMATOLOGY ONCOLOGY CONSULTANT 05/14/24 documented as of this encounter
--- OUTSIDE RECORDS SUMMARY | 2025-07-29 19:53 | XMS_ITS | Clinical Summary ---
Author Organization [facility] Sys tem Address [id number] [address] [place] [address] Care Team Providers Care Brusher Tender Name Role Phone Fabiana Sandra APRN-SFDC DEVELOPER Primary Care Provid er Allergies Active Allergy [...] Answer Date Recorded Total Score 0 03/12/2024 [facility] Occupat ional Health - Occupational [...] Recorded Do you need help finding a [facility] [employer] center and/or a training program? No 10/15/2021 [...] Narrative COPATH - 08/21/2018 12:43 PM EDT [facility] [address] [place] [address] Gynecologic Cytology Consultation Patient Name: TARA ISLAS : 1995 (Age: 23) Gender: F Taken: 08/09/2018 Reported: 08/21/2018 Physician(s): Sarabjit Odom M.D. Copy To: [facility]. Rec. #: [id number] Acct: # [id number] Final Cytologic Interpretation Cervical (with or without endocervical) ThinPrep: Satisfactory for evaluation. A transformation zone component is present. NEGATIVE FOR INTRAEPITHELIAL LESION OR MALIGNANCY. lvt/08/21/2018 Interpretation performed at [facility], [address] [place] [id number], License number: [id number]. Electronically Signed Out By HARJEET Cruz(ASCP) Date of Last Menstrual Period: 06/14/18 Other Clinical Conditions: z12.4 Screenings for malignant neoplasm of cervix z87.898 Hx of abnormal cervical pap smear Previous abnormal pap Hormone replacement therapy Previous treatment: Colposcopy and LEEP Previous cytology: HSIL, YVETTE II - III Source of Specimen Cervical (with or without endocervical) ThinPrep Thin Prep Pap (ACCOUNTS RECEIVABLE CLERK) Fee Code(s): G0145 The Pap test is a screening test with an inherent, but low, probability of error. The Pap test is primarily effective for the diagnosis and prevention of squamous cell carcinoma. Regular screening is critical for prevention. ThinPrep liquid-based slides, which meet the Commissioned Fire Officer criteria for automated screening, have been screened by the ThinPrep Imaging System (as of 07/31/07) along with an additional manual rescreening by a substitute nurse and, if indicated, by a pathologist.Sarabjit Odom M.D. 08/14/2018 Sarabjit Odom MD PATHOLOGY/CYTOLOGY ORDERABLES Final Result COPATH from Last 3 Months or Most Recently Relevant to Health Maintenance Insurance [employer] Member Subscriber Plan / Payer (Ef fective 2022-Present) Name:Tara Islas Relation to Subscriber:Self Name:Tara Islas Payer ID:Not on file Group ID:[id number] Type:Not on file Address: [facility] [address] [place] [id number] Care Teams Brusher Tender Relationship Specialty Start Date End Date Fabiana Sandra, TECHNICAL PROFESSIONAL-SFDC DEVELOPER PCP - General Family Medicine 10/16/19
--- OUTSIDE RECORDS SUMMARY | 2025-07-29 19:53 | XMS_ITS | Encounter Summary ---
Author Organization [facility] Address [address] [place] [address] Care Team Providers Care Grain Roaster Name Role Phone CalixRadha Unavailable Encounter Details Date Type Department Care Team (Late Contact Info) Description 12/24/2024 Orders Only [facility] HERNANDEZ [address] [place] [address] Ophelia Barros LPN [address] [facility] Al[place]RE[place], [place] [address] Social History Tobacco Use Types Packs/Day Years [...] 10:50 AM EDT Routine [facility] HERNANDEZ [address] [place] [address] Henok Lopez DO [address] [place], [place] [id number] 12/16/2025 2:00 PM EST Office Visit [facility] HERNANDEZ [address] [place] [place] [address] Henok Lopez, DO [address] [place] [address] [place] [address] documented as of this encounter Procedures Procedure Name Priority Date/Time Associated Diagnosis Comments PAP SMEAR Routine 12/11/2024 12:00 AM EST documented in this encounter Results * Pap Smear (12/11/2024 12:00 AM EST) Swab Cervical swab / Unknown John Nurse [facility] CYTOLOGY ORDERABLES Final Result EXTERNAL LAB documented in this encounter Visit Diagnoses Not on filedocumented in this encounter Care Teams Grain Roaster Relationship Specialty Start Date End Date Radha Calix PA PCP - [facility] Diana BURDEN 05/14/24 documented as of this encounter
--- OUTSIDE RECORDS SUMMARY | 2025-07-29 19:53 | XMS_ITS | Encounter Summary ---
Author Organization [facility] Address [address] [facility] [place] [address] Care Team Providers Care Community Health Agent Name Role Phone Radha Calix Unavailable [phone] Encounter Details Date Type Department Care Team (Late Contact Info) Description 05/31/2025 Abstract MANDEEP HERNANDEZ [address] [place] [address] Henok Lopez DO [address], [facility] Social History Tobacco Use Types Packs/Day [...] EDT Routine MANDEEP HERNANDEZ [address] [place] [address] Henok Lopez DO [address] [place] [address] 12/16/2025 2:00 PM EST Office Visit MANDEEP BRADLEYGYN [address] [facility] [place] [phone] Henok Lopez DO [address] [facility] [place] [address] documented as of this encounter Visit Diagnoses Not on filedocumented in this encounter Care Teams Community Health Agent Relationship Specialty Start Date End Date Radha Calix PA PCP - [facility] Ortiz SAFETY PERSON 05/14/24 documented as of this encounter
--- OUTSIDE RECORDS SUMMARY | 2025-07-29 19:53 | XMS_ITS | Encounter Summary ---
Author Organization [facility] Address [address] [facility] [place] [address] Care Team Providers Care Seam Stayer Name Role Phone Radha Calix Unavailable Encounter Details Date Type Department Care Team (Late Contact Info) Description 02/07/2025 Abstract MANDEEP HERNANDEZ [address] [place] [address] Henok Lopez DO [address], [place] [address] Social History Tobacco Use Types Packs/Day Years [...] EDT Routine MANDEEP HERNANDEZ [address] [place] [phone] Henok Lopez DO [address], [facility] 12/16/2025 2:00 PM EST Office Visit MANDEEP BRADLEYGYN [address] [facility] [place] [phone] Henok Lopez DO [address] [facility] [place] [address] documented as of this encounter Visit Diagnoses Not on filedocumented in this encounter Care Teams Seam Stayer Relationship Specialty Start Date End Date Radha Calix PA PCP - [facility] Ortiz WATER TAXI OPERATOR 05/14/24 documented as of this encounter
--- OUTSIDE RECORDS SUMMARY | 2025-07-29 19:53 | XMS_ITS | Encounter Summary ---
Author Organization [employer] Sys [employer] Address [id number] [address] [place] [address] Care Team Providers Care Air And Hydronic Balancing Technician Name Role Phone Fabiana Sandra APRN-BUSINESS ANALYSIS CONSULTANT Primary Care Provid er Reason for Visit * Reason Comments Med Refill Encounter Details Date Type Department Care Team (Late st Contact Info) Description 08/09/2023 Refill [facility] Internal Medicine - Family Medicine [address] [place] [address] Fabiana Sandra APRN-BUSINESS ANALYSIS CONSULTANT [address] [place] [address] Anxiety and depression Social History Tobacco Use [...] Answer Date Recorded Total Score 0 04/27/2022 [facility] of Occupat ional Health - Occupational Stress [...] Recorded Do you need help finding a [facility] career center and/or a training program? [...] documented as of this encounter Care Teams Air And Hydronic Balancing Technician Relationship Specialty Start Date End Date Fabiana Sandra, PROJECT MANAGEMENT IT SPECIALIST-BUSINESS ANALYSIS CONSULTANT PCP - General Family Medicine 10/16/19 documented as of this encounter
--- OUTSIDE RECORDS SUMMARY | 2025-07-29 19:56 | XMS_ITS | CCD ---
Author Organization [facility] Care Team Providers Care Forms Examiner Name Role Phone JOHN, DR TRAN Admitting [...] Primary Care Unavailable Radha Dickerson Unavailable Sandra BENEFITS COORDINATOR-CLAM SHUCKING MACHINE TENDER, Matt J Primary Care Provid er Radha [...] (1 source) Cephalexin Drug Allergy 2 [facility] Repository (20 sources) Cephalexin; Translations: [CEPHALEXIN] [...] 02-08-2024 Episodic Other and delivery including normal (16 sources) Second trimester ; Translations: [Encounter for [...] [33 weeks gestation of ] 07-10-2025 Episodic Residual codes; unclassified (2 sources) Gestation period, 36 weeks; Translations: [36 weeks gestation of ] 07-29-2025 Episodic Syncope (4 sources) Syncope and collapse; [...] Test Name Value Interpretation Reference Range Facility Urinalysis macro (dipstick) panel (U)Ordered By: Hemalatha Fatima on 07-29-2025 Bilirubin, UA Negative Negative - 4(70) +++ mg/dL [facility] Work Phone: Blood, UA Positive Negative - 50 Abhi/mcL [facility] Work Phone: Clarity, UA Clear [facility] Work Phone: Color, UA Yellow [facility] Work Phone: Glucose, UA Negative Negative - 1999(110) ++++ mg/dL [facility] Work Phone: Interpretation and review of laboratory results Normal [facility] Work Phone: Ketones, UA Negative Negative - 160(16) ++++ mg/dL [facility] Work Phone: Leukocytes, UA Negative Negative - 500+++ Pura/mcL [facility] Work Phone: Nitrite, UA Positive Negative - Positive [facility] Work Phone: pH, UA 1 5 - 9 [facility] Work Phone: Protein, UA Negative Negative - 1999(20) ++++ mg/dL [facility] Work Phone: Spec Grav, UA 6.5 1 - 1.03 [facility] Work Phone: Urobilinogen, UA 1.0 0.2 - 12 mg/dL [facility] Work Phone: [facility] Work Phone: US OB BPP W NON-STRESS on 07-24-2025 [place] [address] Ultrasound Report Signed Patient: TARA BRUNO MR#: [id number] : 1995 Acct:[id number] Age/Sex: 30 / F ADM Date: 07/24/25 Loc: US Attending Dr: Jo Ann Patino Ordering Physician: Jo Ann Patino Date of Service: 07/24/25 Procedure(s): US OB BPP w non-stress Accession Number(s): [id number] cc: MATT SANDRA Kristina The [place] [id number] Patient Name: TARA BRUNO MRN: [facility]:[id number] date: 1995 Sex: F Assigned Patient Location: [facility] Current Patient Location: Accession/Order Number: [id number] Exam Date: 07/24/2025 10:02 Report Date: 07/24/2025 11:09 At the request of: JO ANN PATINO Procedure: US OB BPP w non-stress BIOPHYSICAL PROFILE: CLINICAL INFORMATION: Excessive growth COMPARISON: 07/17/2025 There is a single live intrauterine gestation in cephalic presentation. The reported gestational age is 35 weeks 3 days. The heart rate [id number] beats per minute. FINDINGS: TONE: 1 or [...] Kuo M.D. 07/24/2025 11:09 AM Dictation Location: [place] [address] Electronically authenticated by: [id number] Y Date: 07/24/2025 11:09 Dictated By: Audrey Kuo M.D. Signed By: 07/24/25 1111 DD/ 1109 TD/TT: Drawing Operator: [facility] Radiology, Radiologist, - 07/24/2025 [place] [address] Ultrasound Report Signed Patient: TARA BRUNO MR#: [id number] : 1995 Acct:[id number] Age/Sex: 30 / F ADM Date: 07/24/25 Loc: US Attending Dr: Jo Ann Patino Ordering Physician: oJ Ann Patino Date of Service: 07/24/25 Procedure(s): US OB BPP w non-stress Accession Number(s): [id number] cc: MATT SANDRA Kristina [place] [id number] Patient Name: TARA BRUNO MRN: [facility]:[id number] date: 1995 Sex: F Assigned Patient Location: [facility] Current Patient Location: Accession/Order Number: [id number] Exam Date: 07/24/2025 10:02 Report Date: 07/24/2025 11:09 At the request of: JO ANN PATINO Procedure: US OB BPP w non-stress BIOPHYSICAL PROFILE: CLINICAL INFORMATION: Excessive growth COMPARISON: 07/17/2025 There is a single live intrauterine gestation in cephalic presentation. The reported gestational age is 35 weeks 3 days. The heart rate [id number] beats per minute. FINDINGS: TONE: 1 or [...] Kuo M.D. 07/24/2025 11:09 AM Dictation Location: [place] [address] Electronically authenticated by: [id number] Y Date: 07/24/2025 11:09 Dictated By: Audrey Kuo M.D. Signed By: 07/24/25 1111 DD/ 1109 TD/TT: Drawing Operator: [facility] Radiology Study observation (narrative) [facility] US OB BPP W NON-STRESS Ordered By: Radiologist Radiology on 07-24-2025 [employer] Work Phone: US OB BPP W NON-STRESS on 07-17-2025 [place] [address] Ultrasound Report Signed Patient: TARA BRUNO MR#: [id number] : 1995 Acct:[id number] Age/Sex: 30 / F ADM Date: 07/17/25 Loc: [facility] 251-[address]: Jo Ann Patino Ordering Physician: Jo Ann Patino Date of Service: 07/17/25 Procedure(s): US OB BPP w non-stress Accession Number(s): [id number] cc: MATT SANDRA ; Jo Ann Patino [address] [address] Patient Name: TARA BRUNO MRN: [facility]:[id number] date: 1995 Sex: F Assigned Patient Location: [facility] Current Patient Location: [facility] Accession/Order Number: [id number] Exam Date: 07/17/2025 15:03 Report Date: 07/17/2025 15:34 At the request of: OJ ANN PATINO Procedure: US OB BPP w non-stress Biophysical profile. Reason for exam: Excessive growth COMPARISON: None TECHNIQUE: Transabdominal imaging of the gravid uterus was obtained. FINDINGS: The cellars supervisor reports a BPP of 8 out of 8. BENNETT is normal at 15.6 cm. heart rate 145 bpm. US/US OB BPP w non-stress IMPRESSION: BPP 8 out of 8. Impression dictated by: Aaron Acevedo Jr., D.O. 07/17/2025 3:34 PM Dictation Location: [place] [address] Electronically authenticated by: [id number] Y Date: 07/17/2025 15:34 Dictated By: Aaron Acevedo M.D. Signed By: 07/17/25 1537 DD/ 1534 TD/TT: Drawing Operator: [facility] Radiology, Radiologist, - 07/17/2025 [place] [address] Ultrasound Report Signed Patient: TARA BRUNO MR#: [id number] : 1995 Acct:[id number] Age/Sex: 30 / F ADM Date: 07/17/25 Loc: [facility] 251-[address]: Jo Ann Patino Ordering Physician: Jo Ann Patino Date of Service: 07/17/25 Procedure(s): US OB BPP w non-stress Accession Number(s): [id number] cc: MATT SANDRA ; Jo Ann Patino [place] [address] Patient Name: TARA BRUNO MRN: [facility]:[id number] date: 1995 Sex: F Assigned Patient Location: [facility] Current Patient Location: [facility] Accession/Order Number: [id number] Exam Date: 07/17/2025 15:03 Report Date: 07/17/2025 15:34 At the request of: JO ANN PATINO Procedure: US OB BPP w non-stress Biophysical profile. Reason for exam: Excessive growth COMPARISON: None TECHNIQUE: Transabdominal imaging of the gravid uterus was obtained. FINDINGS: The cellars supervisor reports a BPP of 8 out of 8. BENNETT is normal at 15.6 cm. heart rate 145 bpm. US/US OB BPP w non-stress IMPRESSION: BPP 8 out of 8. Impression dictated by: Aaron Acevedo Jr., D.O. 07/17/2025 3:34 PM Dictation Location: [place] [address] Electronically authenticated by: [id number] Y Date: 07/17/2025 15:34 Dictated By: Aaron Acevedo M.D. Signed By: 07/17/25 1537 DD/ 153 TD/TT: Drawing Operator: [facility] Radiology Study observation (narrative) [facility] US OB BPP W NON-STRESS Ordered By: Radiologist Radiology on 07-17-2025 [facility] Work Phone: US OB FOLLOW UP TRANSABDOMIN [...] UA Negative Negative - 4(70) +++ mg/dL [facility] Blood, UA Positive Negative - 50 Abhi/mcL [facility] Clarity, UA Clear [facility] Color, UA Yellow [facility] Glucose, UA Negative Negative - 2000(110) ++++ mg/dL [facility] Interpretation and review of laboratory results Abnormal [facility] Ketones, UA Negative Negative - 160(16) ++++ mg/dL [facility] Leukocytes, UA Negative Negative - 500+++ Pura/mcL [facility] Nitrite, UA Negative Negative - Positive [facility] pH, UA 7 5 - 9 [facility] Protein, UA Negative Negative - 1999(20) ++++ mg/dL [facility] Spec Grav, UA 1.005 1 - 1.03 [facility] Urobilinogen, UA 1.0 0.2 - 12 mg/dL [facility] Urinalysis macro (dipstick) panel (U)on 06-26-2025 Bilirubin, UA Negative Negative - 4(70) +++ mg/dL [facility] Blood, UA Positive Negative - 50 Abhi/mcL [facility] Comment on above: Trace Clarity, UA Clear [facility] Color, UA Yellow [facility] Glucose, UA Negative Negative - 1999(110) ++++ mg/dL [facility] Interpretation and review of laboratory results Abnormal [facility] Ketones, UA Positive Negative - 160(16) ++++ mg/dL [facility] Comment on above: Trace Leukocytes, UA Negative Negative - 500+++ Pura/mcL [facility] Nitrite, UA Negative Negative - Positive [facility] pH, UA 6 5 - 9 [facility] Protein, UA Trace Negative - 1999(20) ++++ mg/dL [facility] Spec Grav, UA 1.02 1 - 1.03 [facility] Urobilinogen, UA 0.2 0.2 - 12 mg/dL [facility] US OB FOLLOW UP TRANSABDOMIN AL APPROACHon [...] II, MD, PHD at 12-Jun-2025 07:34:42 AM [facility] Normal Not Available Comment on above: Order Comment: US OB SCAN FOR GROWTH Estimated Date of Delivery: 08/25/25 Gestational Age as of 05/29/2025: 27w3d Urinalysis macro (dipstick) panel (U)on 06-11-2025 Bilirubin, UA Negative Negative - 4(70) +++ mg/dL [facility] Blood, UA Positive Negative - 50 Abhi/mcL [facility] Comment on above: Trace Clarity, UA Clear [facility] Color, UA Yellow [facility] Glucose, UA Negative Negative - 2000(110) ++++ mg/dL [facility] Interpretation and review of laboratory results Abnormal [facility] Ketones, UA Positive Negative - 160(16) ++++ mg/dL [facility] Comment on above: Trace Leukocytes, UA Negative Negative - 500+++ Pura/mcL [facility] Nitrite, UA Negative Negative - Positive [facility] pH, UA 6 5 - 9 [facility] Protein, UA Negative Negative - 2000(20) ++++ mg/dL [facility] Spec Grav, UA 1.015 1 - 1.03 [facility] Urobilinogen, UA 0.2 0.2 - 12 mg/dL [facility] ALL CBC WITH AUTO DIFFon BASOPHILS ABSOLUTE AUTO 0 N [facility] Basophils/100 WBC (Bld) 0.2 % 0.2 - 2.0 % [facility] Eosinophils/100 WBC (Bld) 0.9 % 0.9 - 7.0 % [facility] Erythrocyte distribution width (RBC) [Ratio] 13 % 11.0 - 15.0 % [facility] Hematocrit (Bld) [Volume fraction] 30.1 % Low 36.0 - 48.0 % [facility] Hemoglobin (Bld) [Mass/Vol] 10 g/dL Low 12.0 - 16.0 g/dL [facility] IMMATURE GRANULOCYTES ABS AUTO 0.17 High [facility] Immature granulocytes/100 WBC (Bld) 1.7 % High 0.0 - 0.5 % [facility] Interpretation and review of laboratory results Abnormal [facility] LYMPHOCYTES ABSOLUTE AUTO 1.5 [facility] Lymphocytes/100 WBC (Bld) 15.2 % Low 20.5 - 60.0 % [facility] MCH (RBC) [Entitic mass] 29.2 pg 26.7 - 34.0 pg [facility] MCHC (RBC) [Mass/Vol] 33.2 g/dL 29.9 - 35.2 g/dL [facility] MCV (RBC) [Entitic vol] 88 fL 81.0 - 99.0 fL [facility] MONOCYTES ABSOLUTE AUTO 0.5 N [facility] Monocytes/100 WBC (Bld) 5.4 % 1.7 - 12.0 % [facility] NEUTROPHILS ABSOLUTE AUTO 7.5 High [facility] Neutrophils/100 WBC (Bld) 76.6 % High 43.0 - 75.0 % [facility] Platelet mean volume (Bld) [Entitic vol] 9.1 fL Low 9.5 - 13.5 fL [facility]H EO # 0.1 [facility] PLT 176 [facility] RBC 3.42 Low [facility] WBC 9.7 [facility] Urinalysis macro (dipstick) panel (U)on 05-29-2025 Bilirubin, UA Negative Negative - 4(70) +++ mg/dL [facility] Blood, UA Positive Negative - 50 Abhi/mcL [facility] Comment on above: trace Clarity, UA Clear [facility] Color, UA Yellow [facility] Glucose, UA Positive Negative - 1999(110) ++++ mg/dL [facility] Comment on above: 100 Interpretation and review of laboratory results Abnormal [facility] Ketones, UA Negative Negative - 160(16) ++++ mg/dL [facility] Leukocytes, UA Negative Negative - 500+++ Pura/mcL [facility] Nitrite, UA Negative Negative - Positive [facility] pH, UA 6 5 - 9 [facility] Protein, UA Negative Negative - 1999(20) ++++ mg/dL [facility] Spec Grav, UA 1.01 1 - 1.03 [facility] Urobilinogen, UA 0.2 0.2 - 12 mg/dL [facility] Urinalysis macro (dipstick) panel (U)on 05-02-2025 Bilirubin, UA Negative Negative - 4(70) +++ mg/dL [facility] Blood, UA Positive Negative - 50 Abhi/mcL [facility] Comment on above: small Clarity, UA Clear [facility] Color, UA Yellow [facility] Glucose, UA Positive Negative - 1999(110) ++++ mg/dL [facility] Comment on above: 100mg/dL Interpretation and review of laboratory results Abnormal [facility] Ketones, UA Negative Negative - 160(16) ++++ mg/dL [facility] Leukocytes, UA Negative Negative - 500+++ Pura/mcL [facility] Nitrite, UA Negative Negative - Positive [facility] pH, UA 6 5 - 9 [facility] Protein, UA Positive Negative - 1999(20) ++++ mg/dL [facility] Comment on above: 30mg/dL Spec Grav, UA 1.03 1 - 1.03 [facility] Urobilinogen, UA 0.2 0.2 - 12 mg/dL [facility] No Panel InformationOrdered By: Radiologist Radiology on 04-10-2025 [facility] Work Phone: No Panel Informationon 04-10 Radiology Study observation (narrative) [facility] US OB ANATOMYon 04-10-[address] [address] Ultrasound Report Signed Patient: TARA BRUNO MR#: [id number] : 1995 Acct:[id number] Age/Sex: 30 / F ADM Date: 04/10/25 Loc: US Attending Dr: Chelsea Lopez D.O. Ordering Physician: Chlesea Lopez D.O. Date of Service: 04/10/25 Procedure(s): US OB anatomy Accession Number(s): [id number] cc: MATT SANDRA ; Chelsea Lopez D.O. [address] [address] Patient Name: TARA BRUNO MRN: [facility]:[id number] date: 1995 Sex: F Assigned Patient Location: US Current Patient Location: US Accession/Order Number: [id number] Exam Date: 04/10/2025 16:00 Report Date: 04/10/2025 [...] Wynn M.D. 04/10/2025 4:04 PM Dictation Location: [place] [address] Electronically authenticated by: [id number] Y Date: 04/10/2025 16:04 Dictated By: Ashish Wynn D.O. Signed By: 04/10/25 1607 DD/ 1604 TD/TT: Drawing Operator: [facility] Radiology, Radiologist, - 04/10/[address] [address] Ultrasound Report Signed Patient: TARA BRUNO MR#: [id number] : 1995 Acct:[id number] Age/Sex: 30 / F ADM Date: 04/10/25 Loc: US Attending Dr: Chelsea Lopez D.O. Ordering Physician: Chelsea Lopez D.O. Date of Service: 04/10/25 Procedure(s): US OB anatomy Accession Number(s): [id number] cc: MATT SANDRA ; Chelsea Lopez D.O. [address] [address] Patient Name: TARA BRUNO MRN: [id number] date: 1995 Sex: F Assigned Patient Location: US Current Patient Location: US Accession/Order Number: [id number] Exam Date: 04/10/2025 16:00 Report Date: 04/10/2025 [...] Wynn M.D. 04/10/2025 4:04 PM Dictation Location: [employer] Electronically authenticated by: [id number] Y Date: 04/10/2025 16:04 Dictated By: Ashish Wynn D.O. Signed By: 04/10/25 1607 DD/ 03 TD/TT: Drawing Operator: MANDEEP [facility] US OB CERVICAL LENGTHon 03-15 [place] [address] Ultrasound Report Signed Patient: TARA BRUNO MR#: [id number] : 1995 Acct:[id number] Age/Sex: 30 / F ADM Date: 04/10/25 Loc: US Attending Dr: Chelsea Lopez D.O. Ordering Physician: Chelsea Lopez D.O. Date of Service: 04/10/25 Procedure(s): US OB cervical length Accession Number(s): [id number] cc: MATT SANDRA ; Chelsea Lopez D.O. [place] [id number] Patient Name: TARA BRUNO MRN: [id number] date: 1995 Sex: F Assigned Patient Location: US Current Patient Location: US Accession/Order Number: [id number] Exam Date: 04/10/2025 16:04 Report Date: 04/10/2025 16:04 At the request of: CHELSEA LOPEZ DO Procedure: US OB cervical length Obstetrical ultrasound to assess for cervical length Cervical length 3.9 cm. Os closed. US/US OB cervical length IMPRESSION: Cervical length 3.9 cm. Impression dictated by: Ashish Wynn M.D. 04/10/2025 4:04 PM Dictation Location: [employer] Electronically authenticated by: [id number] Y Date: 04/10/2025 16:04 Dictated By: Ashish Wynn D.O. Signed By: 04/10/251606 DD/ 03 TD/TT: Drawing Operator: [facility] Radiology, Radiologist, - 04/10/2025 [place] [address] Ultrasound Report Signed Patient: TARA BRUNO MR#: [id number] : 1995 Acct:[id number] Age/Sex: 30 / F ADM Date: 04/10/25 Loc: US Attending Dr: Chelsea Lopez D.O. Ordering Physician: Chelsea Lopez D.O. Date of Service: 04/10/25 Procedure(s): US OB cervical length Accession Number(s): [id number] cc: MATT SANDRA ; Chelsea Lopez D.O. The [place] [id number] Patient Name: TARA BRUNO MRN: [facility]:[id number] date: 1995 Sex: F Assigned Patient Location: US Current Patient Location: US Accession/Order Number: [id number] Exam Date: 04/10/2025 16:04 Report Date: 04/10/2025 16:04 At the request of: CHELSEA LOPEZ DO Procedure: US OB cervical length Obstetrical ultrasound to assess for cervical length Cervical length 3.9 cm. Os closed. US/US OB cervical length IMPRESSION: Cervical length 3.9 cm. Impression dictated by: Ashish Wynn M.D. 04/10/2025 4:04 PM Dictation Location: [place] [address] Electronically authenticated by: [id number] Y Date: 04/10/2025 16:04 Dictated By: Ashish Wynn D.O. Signed By: 04/10/251606 DD/ 03 TD/TT: Drawing Operator: [facility] RECURRENT VAGINITIS (HTRX)on 04-04-2025 ATOPOBIUM VAGINAE 27.45 Abnormal [facility] ATOPOBIUM VAGINAE Detected Abnormal [facility] BVAB 2,3 (BACTERIAL VAGINOSIS ASSOCIATED BACTERIA 2, 3); MOBILUNCUS SPP 17.543 Abnormal [facility] BVAB 2,3 (BACTERIAL VAGINOSIS ASSOCIATED BACTERIA 2, 3); MOBILUNCUS SPP Detected Abnormal [facility] AYSHA ALBICANS, PARAPSILOSIS, TROPICALIS 0 [facility] AYSHA ALBICANS, PARAPSILOSIS, TROPICALIS Not detected [facility] AYSHA GLABRATA 0 [facility] AYSHA GLABRATA Not detected [facility] AYSHA KRUSEI 16.514 Abnormal [facility] AYSHA KRUSEI Detected Abnormal [facility] CHLAMYDIA TRACHOMATIS 0 [facility] CHLAMYDIA TRACHOMATIS Not detected N [facility] ERMB, C; MEFA 22.692 Abnormal [facility] ERMB, C; MEFA Detected Abnormal [facility] GARDNERELLA VAGINALIS 26.666 Abnormal [facility] GARDNERELLA VAGINALIS Detected Abnormal [facility] Interpretation and review of laboratory results Abnormal [facility] MEGASPHAERA (TYPES 1, 2) 21.837 Abnormal [facility] MEGASPHAERA (TYPES 1, 2) Detected Abnormal [facility] MYCOPLASMA GENITALIUM 0 [facility] MYCOPLASMA GENITALIUM Not detected N [facility] NEISSERIA GONORRHOEAE 0 [facility] NEISSERIA GONORRHOEAE Not detected N [facility] TET B, TET M 20.933 Abnormal [facility] TET B, TET M Detected Abnormal [facility] TRICHOMONAS VAGINALIS 0 [facility] TRICHOMONAS VAGINALIS Not detected N [facility] Urinalysis macro (dipstick) panel (U)on 04-03-2025 Bilirubin, UA Negative Negative - 4(70) +++ mg/dL [facility] Blood, UA Positive Negative - 50 Abhi/mcL [facility] Comment on above: trace Clarity, UA Clear [facility] Color, UA Yellow [facility] Glucose, UA Positive Negative - 1999(110) ++++ mg/dL [facility] Comment on above: 100 Interpretation and review of laboratory results Abnormal [facility] Ketones, UA Negative Negative - 160(16) ++++ mg/dL [facility] Leukocytes, UA Positive Negative - 500+++ Pura/mcL [facility] Comment on above: small Nitrite, UA Negative Negative - Positive [facility] pH, UA 6 5 - 9 [facility] Protein, UA Trace Negative - 1999(20) ++++ mg/dL [facility] Spec Grav, UA 1.02 1 - 1.03 [facility] Urobilinogen, UA 0.2 0.2 - 12 mg/dL [facility] Urinalysis macro (dipstick) panel (U)on 02-26-2025 Bilirubin, UA Negative Negative - 4(70) +++ mg/dL [facility] Blood, UA Negative Negative - 50 Abhi/mcL [facility] Clarity, UA Clear [facility] Color, UA Yellow [facility] Glucose, UA Negative Negative - 1999(110) ++++ mg/dL [facility] Interpretation and review of laboratory results Normal [facility] Ketones, UA Negative Negative - 160(16) ++++ mg/dL [facility] Leukocytes, UA Negative Negative - 500+++ Pura/mcL [facility] Nitrite, UA Negative Negative - Positive [facility] pH, UA 6 5 - 9 [facility] Protein, UA Negative Negative - 1999(20) ++++ mg/dL [facility] Spec Grav, UA 1.02 1 - 1.03 [facility] Urobilinogen, UA 0.2 0.2 - 12 mg/dL [facility] US OB TRANSVAGINALon 025 US OB TRANSVAGINAL [...] II, MD, PHD at 27-Jan-2025 07:45:14 AM [facility] Normal Not Available Comment on above: Order Comment: US OB TRANSVAGINAL No LMP recorded. IGP,APTIMA HPV,AGE GDLNon AGE GDLN ACOG TESTING Note . [facility] Comment on above: TESTS RESULT FLAG UN ITS REF RANGE LAB Clinician Provided Cytology Information Source.............Cervix;Endocervix No. of containers..01 ThinPrep Vial Age Algo ACOG Violetta... 01 FLAG LEGEND: L-Low Normal,H-High Normal,LL-Alert Low,HH-Alert High <-Panic Low,>-Panic High,A-Abnormal,AA-Critical Abnormal Performed at: 01 [facility] [address] [place] [address] Adriana Pfeiffer MD, IGP, RFX APTIMA HPV ASCU Note . [facility] Comment on above: TESTS RESULT FLAG UN ITS REF RANGE LAB DIAGNOSIS: 02 NEGATIVE FOR INTRAEPITHELIAL LESION OR MALIGNANCY. Specimen adequacy: 02 Satisfactory for evaluation. Endocervical and/or squamous metaplastic cells (endocervical component) are present. Performed by: Kristyn Barbosa Recapper ([facility]) . 02 Note: Note 02 The [...] <-Panic Low,>-Panic High,A-Abnormal,AA-Critical Abnormal Performed at: [address] [place] [address] Adriana Pfeiffer MD, Performed at: =G - [facility] [address] [id number] Business Performance Analyst: Adriana Pfeiffer MD, Phone: [phone] Performed at: - [facility] [id number] Business Performance Analyst: Adriana Pfeiffer MD, Phone: [phone] BRUSH-SPATULA CERVIX ENDOCERVIX [facility] POCT , urineon 02-13 Beta HCG ( test) Ql (U) [facility] POCT Influenza A/Influenza B /SARS-COV-2 VeritorOrdered By: Ellie Ruvalcaba on 02-08-2024 External Poct Influenza A Antigen Negative [facility] External Poct Influenza B Antigen Negative [facility] SARS-CoV-2 (COVID-19) Ag IA.rapid Ql (Resp) Negative [facility] POCT rapid strep Aon 024 Internal Transfer Agent Check Completed and Passed Yes [facility] Interpretation and review of laboratory results Normal [facility] S. pyogenes Ag IA Ql (Unsp spec) Negative Negative [facility] US PELVIS AND TRANSVAGon US PELVIS [...] SAHARA APODACA Date: 2022-12-01 08:05 Normal [facility] US PELVIS TRANSVAGon 022 US [...] YAMEL GOMEZ Date: 2022-02-10 14:27 Normal [facility] Vital Signs Date Time Vital Sign Value Performing Clinician Facility 07-29-2025 11:39-0400 Body mass index (BMI) [Ratio] 35.1 kg/m2 Chelsea John DO Work Phone: [facility] 07-29-2025 11:39-0400 Body weight 89.87 kg Chelsea John DO Work Phone: [facility] 07-29-2025 11:39-0400 Diastolic blood pressure 68 mm[Hg] Chelsea John DO Work Phone: [facility] 07-29-2025 11:39-0400 Systolic blood pressure 110 mm[Hg] Chelsea John DO Work Phone: [facility] 07-10-2025 14:13-0400 Body mass index (BMI) [Ratio] 34.9 kg/m2 Chelsea John DO Work Phone: [facility] 07-10-2025 14:13-0400 Body weight 89.36 kg Chelsea John DO Work Phone: [facility] 07-10-2025 14:13-0400 Diastolic blood pressure 74 mm[Hg] Chelsea John DO Work Phone: [facility] 07-10-2025 14:13-0400 Systolic blood pressure 122 mm[Hg] Chelsea John DO Work Phone: [facility] 06-26-2025 13:34-0400 Body mass index (BMI) [Ratio] 34.28 kg/m2 Josi Duenas PA Work Phone: [facility] 06-26-2025 13:34-0400 Body weight 87.77 kg Josi Sony PA Work Phone: [facility] 06-26-2025 13:34-0400 Diastolic blood pressure 60 mm[Hg] Josi Boise PA Work Phone: [facility] 06-26-2025 13:34-0400 Systolic blood pressure 116 mm[Hg] Josi Sony PA Work Phone: [facility] 06-11-2025 14:47-0400 Body mass index (BMI) [Ratio] 34.06 kg/m2 Chelsea John DO Work Phone: [facility] 06-11-2025 14:47-0400 Body weight 87.2 kg Chelsea John DO Work Phone: [facility] 06-11-2025 14:47-0400 Diastolic blood pressure 68 mm[Hg] Chelsea John DO Work Phone: [facility] 06-11-2025 14:47-0400 Systolic blood pressure 122 mm[Hg] Chelsea John DO Work Phone: [facility] 05-29-2025 13:39-0400 Body mass index (BMI) [Ratio] 33.66 kg/m2 Josi Sony PA Work Phone: [facility] 05-29-2025 13:39-0400 Body weight 86.18 kg Josi Boise PA Work Phone: [facility] 05-29-2025 13:39-0400 Diastolic blood pressure 70 mm[Hg] Josi Sony PA Work Phone: [facility] 05-29-2025 13:39-0400 Systolic blood pressure 110 mm[Hg] Josi Sony PA Work Phone: [facility] 05-02-2025 09:09-0400 Body mass index (BMI) [Ratio] 32.42 kg/m2 Chelsea John DO Work Phone: [facility] 05-02-2025 09:09-0400 Body weight 83.01 kg Chelsea John DO Work Phone: [facility] 05-02-2025 09:09-0400 Diastolic blood pressure 64 mm[Hg] Chelsea John DO Work Phone: [facility] 05-02-2025 09:09-0400 Systolic blood pressure 102 mm[Hg] Chelsea John DO Work Phone: [facility] 04-03-2025 09:41-0400 Body mass index (BMI) [Ratio] 31 kg/m2 Josi Sony PA Work Phone: [facility] 04-03-2025 09:41-0400 Body weight 79.38 kg Josi Sony PA Work Phone: [facility] 04-03-2025 09:41-0400 Diastolic blood pressure 72 mm[Hg] Josi Sony PA Work Phone: [facility] 04-03-2025 09:41-0400 Systolic blood pressure 116 mm[Hg] Josi Sony PA Work Phone: [facility] 02-26-2025 09:50-0400 Body mass index (BMI) [Ratio] 29.94 kg/m2 Chelsea John DO Work Phone: [facility] 02-26-2025 09:50-0400 Body weight 76.66 kg Hcelsea John DO Work Phone: [facility] 02-26-2025 09:50-0400 Diastolic blood pressure 76 mm[Hg] Chelsea John DO Work Phone: [facility] 02-26-2025 09:50-0400 Systolic blood pressure 110 mm[Hg] Chelsea John DO Work Phone: [facility] 12-11-2024 13:26-0500 Body mass index (BMI) [Ratio] 29.05 kg/m2 Chelsea John DO Work Phone: [facility] 12-11-2024 13:26-0500 Body weight 74.39 kg Chelsea John DO Work Phone: [facility] 12-11-2024 13:26-0500 Diastolic blood pressure 68 mm[Hg] Chelsea John DO Work Phone: [facility] 12-11-2024 13:26-0500 Systolic blood pressure 114 mm[Hg] Chelsea John DO Work Phone: [facility] 07-03-2024 15:11-0400 Body height 157.48 cm [facility] 07-03-2024 [id number] Body mass index (BMI) [Ratio] 29.2 kg/m2 [facility] 07-03-2024 [id number] Body weight 72.57 kg [facility] 03-12-2024 11:-0400 Body height 157.5 cm Matt Sandra BENEFITS COORDINATOR-CLAM SHUCKING MACHINE TENDER Work Phone: [facility] 03-12-2024 11:21-0400 Body mass index (BMI) [Ratio] 28.55 kg/m2 Matt Sandra BENEFITS COORDINATOR-CLAM SHUCKING MACHINE TENDER Work Phone: [facility] 03-12-2024 11:21-0400 Body temperature 98.1 [degF] Matt Sandra BENEFITS COORDINATOR-CLAM SHUCKING MACHINE TENDER Work Phone: [facility] 03-12-2024 11:21-0400 Body weight 70.81 kg Matt Sandra BENEFITS COORDINATOR-CLAM SHUCKING MACHINE TENDER Work Phone: [facility] 03-12-2024 11:21-0400 Diastolic blood pressure 68 mm[Hg] Matt Sandra BENEFITS COORDINATOR-CLAM SHUCKING MACHINE TENDER Work Phone: [facility] 03-12-2024 11:21-0400 Heart rate 79 /min Matt Sandra BENEFITS COORDINATOR-CLAM SHUCKING MACHINE TENDER Work Phone: [facility] 03-12-2024 11:21-0400 Respiratory rate 20 /min Matt Sandra BENEFITS COORDINATOR-CLAM SHUCKING MACHINE TENDER Work Phone: [facility] 03-12-2024 11:21-0400 SaO2% (BldA) [Mass fraction] 100 % Matt Sandra APRN-CLAM SHUCKING MACHINE TENDER Work Phone: [facility] 03-12-2024 11:21-0400 Systolic blood pressure 110 mm[Hg] Matt Sandra APRN-CLAM SHUCKING MACHINE TENDER Work Phone: [facility] 02-08-2024 11:53-0400 Body height 157.5 cm Cuco Abdullahi BENEFITS COORDINATOR-CLAM SHUCKING MACHINE TENDER Work Phone: [facility] 02-08-2024 11:53-0400 Body mass index (BMI) [Ratio] 28.9 kg/m2 Cuco Abdullahi BENEFITS COORDINATOR-CLAM SHUCKING MACHINE TENDER Work Phone: [facility] 02-08-2024 11:53-0400 Body temperature 98.2 [degF] Cuco Abdullahi BENEFITS COORDINATOR-CLAM SHUCKING MACHINE TENDER Work Phone: [facility] 02-08-2024 11:53-0400 Body weight 71.67 kg Cuco Abdullahi BENEFITS COORDINATOR-CLAM SHUCKING MACHINE TENDER Work Phone: [facility] 02-08-2024 11:53-0400 Diastolic blood pressure 68 mm[Hg] Cuco Abdullahi BENEFITS COORDINATOR-CLAM SHUCKING MACHINE TENDER Work Phone: [facility] 02-08-2024 11:53-0400 Heart rate 97 /min Cucobradley Abdullahi BENEFITS COORDINATOR-CLAM SHUCKING MACHINE TENDER Work Phone: [facility] 02-08-2024 11:53-0400 Respiratory rate 18 /min Cuco Abdullahi BENEFITS COORDINATOR-CLAM SHUCKING MACHINE TENDER Work Phone: [facility] 02-08-2024 11:53-0400 SaO2% (BldA) [Mass fraction] 97 % Cuco Abdullahi BENEFITS COORDINATOR-CLAM SHUCKING MACHINE TENDER Work Phone: [facility] 02-08-2024 11:53-0400 Systolic blood pressure 112 mm[Hg] Cucobradley Abdullahi BENEFITS COORDINATOR-CLAM SHUCKING MACHINE TENDER Work Phone: [facility] 01-03-2024 10:16-0500 Body height 157.5 cm Matt Sandra APRN-YVES [facility] 01-03-2024 10:16-0500 Body mass index (BMI) [Ratio] 29.23 kg/m2 Matt Sanrda APRN-CLAM SHUCKING MACHINE TENDER [facility] 01-03-2024 10:16-0500 Body temperature 97.3 [degF] Matt Sandra APRN-CLAM SHUCKING MACHINE TENDER [facility] 01-03-2024 10:16-0500 Body weight 72.48 kg Matt Sandra APRN-CLAM SHUCKING MACHINE TENDER [facility] 01-03-2024 10:16-0500 Diastolic blood pressure 58 mm[Hg] Matt Sandra APRN-CLAM SHUCKING MACHINE TENDER Work Phone: [facility] 01-03-2024 10:16-0500 Heart rate 72 /min Matt Sandra APRN-YVES [facility] 01-03-2024 10:16-0500 SaO2% (BldA) [Mass fraction] 99 % Matt Sandra APRN-CLAM SHUCKING MACHINE TENDER [facility] 01-03-2024 10:16-0500 Systolic blood pressure 102 mm[Hg] Matt Sandra APRN-CLAM SHUCKING MACHINE TENDER Work Phone: [facility] Encounters Encounter Date Encounter Type Care Provider Facility Start: 07-29-2025 End: 07-29-2025 Office outpatient visit 15 minutes Chelsea Lopez DO Work Phone: [facility] Comment on above: Third trimester preg alejandro ([facility]); 36 weeks gestation of ([facility]) Start: 07-24-2025 End: 07-24-2025 Clinisync Result Encounter Jo Ann Patino NP Work Phone: [facility] External Department Unsolicited Start: 07-24-2025 End: 07-24-2025 Clinisync Result Encounter Jo Ann Patino COURT MESSENGER Work Phone: [facility] External Department Unsolicited Start: 07-17-2025 End: 07-17-2025 Clinisync Result Encounter Jo Ann Patino COURT MESSENGER Work Phone: [facility] External Department Unsolicited Start: 07-17-2025 End: 07-17-2025 Clinisync Result Encounter Jo Ann Patino COURT MESSENGER Work Phone: [facility] External Department Unsolicited Start: 07-10-2025 End: 07-10-2025 Office outpatient visit 15 minutes Chelsea John DO Work Phone: [facility] Comment on above: Excessive grow th affecting management of in third trimester, single or unspecified fetus ([facility]) (Primary Dx); Third trimester ([facility]); 33 weeks gestation of ([facility]); Hematuria, unspecified type Start: 07-10-2025 End: 07-10-2025 ambulatory CHELSEA JOHN Not Available Start: 06-26-2025 End: 06-26-2025 Bamboo flowsheet Josi HERNANDEZ Work Phone: [facility] [place] [facility] Start: 06-26-2025 End: 06-26-2025 Bamboo flowsheet Josi HERNANDEZ Work Phone: [facility] [place] [facility] Start: 06-26-2025 End: 06-26-2025 Office outpatient visit 15 minutes Josi HERNANDEZ Work Phone: [facility] Comment on above: Third trimester preg alejandro ([facility]); 31 weeks gestation of ([facility]) Start: 06-26-2025 End: 06-26-2025 ambulatory JOSI DUENAS Not Available Start: 06-11-2025 End: 06-11-2025 ambulatory CHELSEA JOHN Not Available Start: 06-11-2025 End: 06-11-2025 Office outpatient visit 15 minutes Chelsea John DO Work Phone: [facility] Comment on above: Third trimester preg alejandro ([facility]); 29 weeks gestation of ([facility]); Anemia affecting in third trimester ([facility]); Excessive growth affecting management of , antepartum, single or unspecified fetus ([facility]) Start: 06-11-2025 End: 06-11-2025 ambulatory CHELSEA [...] incons istent with dates in second trimester ([facility]) (Primary Dx); Second trimester ([facility]); 27 weeks gestation of ([facility]) Start: 05-02-2025 End: 05-02-2025 Bamboo flowsheet Chelsea John DO Work Phone: [facility] Start: 05-02-2025 End: 05-02-2025 Bamboo flowsheet Chelsea John DO Work Phone: [facility] Start: 05-02-2025 End: 05-02-2025 ambulatory CHELSEA JOHN Not Available Start: 05-02-2025 End: 05-02-2025 Office outpatient visit 15 minutes Chelsea John DO Work Phone: [facility] Comment on above: Diabetes mellitus sc reening; Second trimester ([facility]); 23 weeks gestation of ([facility]) Start: 04-10-2025 End: 04-10-2025 Clinisync Result [...] Work Phone: [facility] External Department Unsolicited Start: 12-11-2024 End: 12-11-2024 Patient encounter procedure Chelsea John DO Work Phone: [facility] Start: 12-11-2024 End: 12-11-2024 Periodic preventive med est patient 18-39 yrs Chelsea John DO Work Phone: [facility] Comment on above: Well woman exam with routine gynecological exam Start: 12-11-2024 End: 12-11-2024 ambulatory CHELSEA JOHN Not Available Start: 07-03-2024 End: 07-03-2024 ambulatory [facility] Work Phone: Start: 07-03-2024 End: 07-03-2024 Patient encounter procedure [facility] G[facility] Work Phone: Start: 04-10-2024 Non-patient / Non-visit [facility] G[facility] Work Phone: Start: 03-12-2024 End: 03-12-2024 ambulatory MATTYOSI SANDRA [facility] Start: 03-12-2024 End: 03-12-2024 Office outpatient visit 15 minutes Matt Sandra BENEFITS COORDINATOR-CLAM SHUCKING MACHINE TENDER [facility] Comment on above: Anxiety and depressi on (Primary Dx); Nausea; Syncope, unspecified syncope type Start: 02-27-2024 End: 02-28-2024 ambulatory CUCO ABDULLAHI [facility] Travis abernathytal Start: 02-09-2024 [facility]phone [facility] Start: 02-08-2024 End: 02-08-2024 ambulatory CUCO Jose BRADLY [facility] Start: 02-08-2024 End: 02-08-2024 Office outpatient visit 15 minutes Cuco Abdullahi BENEFITS COORDINATOR-CLAM SHUCKING MACHINE TENDER Work Phone: [facility] Internal Medicine [facility] Comment on above: Viral upper respirat ory tract infection (Primary Dx); Chills; Epigastric pain; Syncope and collapse; Gastroesophageal reflux disease, unspecified whether esophagitis present Start: 01-03-2024 End: 01-03-2024 ambulatory [facility] Start: 01-03-2024 End: 01-03-2024 Office outpatient visit 15 minutes Matt Srini [facility] BENEFITS COORDINATOR-CLAM SHUCKING MACHINE TENDER Work Phone: [facility] Internal [facility] Comment on above: Anxiety and depressi on (Primary Dx) Start: 12-01-2022 End: 12-01-[address] CHELSEA LOPEZ Facility:[facility] Start: 11-30-2022 End: 12-01-[address] CHELSEA LOPEZ Facility:[facility] Start: 02-10-2022 End: 02-11-[address] CHELSEA LOPEZ Facility:[facility] Start: 07-29-2017 End: 07-29-2017 Emergency department patient visit [facility] Procedures Date Procedure Procedure Detail Performing Clinician Start: 07-29-2025 Urnls dip stick/tabl et rgnt non-auto w/o micrscp Chelsea John DO Work Phone: Start: 07-24-2025 OB BPP W NON-STRESS Jo Ann Patino COURT MESSENGER Work Phone: Start: 07-17-2025 US OB BPP W NON-STRESS Jo Ann Patino COURT MESSENGER Work Phone: Start: 07-10-2025 Urnls dip stick/tabl [...] test visual color cmprsn meths Matt Sandra APRN-[facility] Work Phone: Start: 03-12-2024 Adult depression scr eening assessment Matt Sandra APRN-[facility] Work Phone: Start: 02-08-2024 Iaadiadoo streptococ cus group a Cuco Abdullahi BENEFITS COORDINATOR-[facility] Work Phone: Start: 02-08-2024 POCT INFLUENZA A/INF LUENZA B/SARS-COV-2 VERITOR Cuco Abdullahi BENEFITS COORDINATOR-[facility] Work Phone: Start: 02-08-2024 Adult depression scr eening assessment Cuco Abdullahi BENEFITS [facility]ORDIN[facility] Work Phone: Start: 01-03-2024 Adult depression scr eening assessment Matt Sandra [facility] Work Phone: Start: 08-09-2018 Microscopic observat ion [Identifier] in Cervix by Cyto stain Matt Sandar [facility] Work Phone: Plan of Treatment Date Care Activity Detail Author Start: 12-16-2025 End: 12-16-2025 Patient encounter procedure [facility] Start: 08-05-2025 End: 08-05-2025 Patient encounter procedure 08/05/2025 10:50 AM EDT Routine [facility] [address] [place] [address] Chelsea Lopez DO [address] [place] [address] [facility] [place] [facility] Start: 07-31-2025 End: 07-31-2025 Professional / ancillary services management 07/31/2025 9:30 AM EDT Ancillary Procedure [facility] [address] [place] [address] [facility] Start: 07-29-2025 End: 07-29-2026 CULTURE, GROUP B STREP WITH SUSCEPTIBLITY CULTURE, GROUP B STREP WITH SUSCEPTIBLITY Lab Routine Third trimester ([facility]) Expected: 07/29/2025, Expires: 07/29/2026 [facility] Work Phone: Comment on above: Expected: 07/29/2025 , Expires: 07/29/2026 Start: 07-29-2025 End: 07-29-2025 Patient encounter procedure 07/29/2025 9:20 AM EDT Routine [facility] [address] [place] [id number] Josi Duenas PA [address] [place] [address] [facility] Start: 07-15-2025 Influenza vaccination [facility] Start: 07-10-2025 End: 07-10-2025 Patient encounter procedure 07/10/2025 2:10 PM EDT Routine [facility] [address] [place] [id number] Chelsea Lopez DO [address] [place], [place] [id number] [facility] Start: 07-10-2025 End: 01-10-2026 US biophysical profile w non stress test US biophysical profile w non stress test Imaging Routine Excessive growth affecting management of in third trimester, single or unspecified fetus ([facility]) Expected: 07/10/2025 (Approximate), Expires: 01/10/2026 [facility] Comment on above: Expected: 07/10/2025 (Approximate), Expires: 01/10/2026 Start: 07-10-2025 End: 11-09-2025 US for US OB follow up transabdominal approach Imaging Routine Excessive growth affecting management of in third trimester, single or unspecified fetus ([facility]) Expected: 07/10/2025, Expires: 11/09/2025 [facility] Work Phone: Comment on above: Expected: 07/10/2025 , Expires: 11/09/2025 Start: 07-10-2025 End: 07-10-2025 Professional / ancillary services management 07/10/2025 1:30 PM EDT Ancillary Procedure [facility] [address] [place] [phone] [facility] Start: 06-26-2025 End: 06-26-2025 Patient encounter procedure [facility] Comment on above: Arrived Start: 06-11-2025 End: 06-11-2025 Patient encounter procedure 06/11/2025 2:00 PM EDT Routine [facility] [address] [place] [phone] Chelsea Lopez DO [address] [place] [address] [facility] Start: 06-11-2025 End: 10-12-2025 US for US OB follow up transabdominal approach Imaging Routine Excessive growth affecting management of , antepartum, single or unspecified fetus ([facility]) Expected: 06/11/2025, Expires: 10/12/2025 [facility] Work Phone: Comment on above: Expected: 06/11/2025 , Expires: 10/12/2025 Start: 06-11-2025 End: 06-11-2025 Professional / ancillary services management 06/11/2025 1:30 PM EDT Ancillary Procedure [facility] [address] [place] [id number] [facility] Start: 05-29-2025 End: 09-29-2025 US for US OB follow up transabdominal approach Imaging Routine Size of fetus inconsistent with dates in second trimester ([facility]) Expected: 05/29/2025, Expires: 09/29/2025 [facility] Work Phone: Comment on above: Expected: 05/29/2025 , Expires: 09/29/2025 Start: 05-29-2025 End: 05-29-2025 Patient encounter procedure 05/29/2025 1:20 PM EDT Routine [facility] [address] [phone] Josi Duenas PA [address] [place] [address] [facility] Start: 05-02-2025 End: 05-02-2026 CBC panel - Blood by Automated count CBC Lab Routine Diabetes mellitus screening Expected: 05/02/2025 (Approximate), Expires: 05/02/2026 [facility] Work Phone: Comment on above: Expected: 05/02/2025 (Approximate), Expires: 05/02/2026 Start: 05-02-2025 End: 05-02-2026 Measurement of glucose 1 hour after glucose challenge for glucose tolerance test Glucose tolerance, 1 hour Lab Routine Diabetes mellitus screening Expected: 05/02/2025 (Approximate), Expires: 05/02/2026 [facility] Comment on above: Expected: 05/02/2025 (Approximate), Expires: 05/02/2026 Start: 05-02-2025 End: 05-02-2025 Patient encounter procedure 05/02/2025 8:50 AM EDT Routine [facility] [address] [place] [phone] Chelsea Lopez DO [address] [place] [address] [facility] Start: 04-03-2025 End: 05-04-2025 Alpha fetoprotein, maternal Alpha fetoprotein, maternal Lab Routine Need for maternal serum alpha-protein (MSAFP) screening Expected: 04/03/2025 (Approximate), Expires: 05/04/2025 [facility] Comment on above: Expected: 04/03/2025 (Approximate), Expires: 05/04/2025 Start: 04-03-2025 End: 07-04-2025 US for US OB 14+ weeks anatomy scan Imaging Routine Screening, , for anatomic survey Expected: 04/03/2025, Expires: 07/04/2025 [facility] Comment on above: Expected: 04/03/2025 , Expires: 07/04/2025 Start: 04-03-2025 End: 04-03-2025 Patient encounter procedure [facility] Comment on above: Arrived Start: 03-12-2025 Adult BMI Screening Adult BMI Screen ing [facility] Start: 03-12-2025 Depression Screening Depression Scre ening [facility] Start: 03-12-2025 Tobacco Screening Tobacco Screening [facility] Start: 02-26-2025 End: 02-26-2025 Patient encounter procedure 02/26/2025 9:50 AM EDT Routine [facility] [address] [place] [phone] Chelsea Lopez, DO [address] [place], [place] [id number] Arrived [facility] Comment on above: Arrived Start: 02-07-2025 Adult BMI Screening Adult BMI Screen ing [facility] Start: 02-07-2025 Depression Screening Depression Scre ening [facility] Start: 02-07-2025 Tobacco Screening [facility] [facility] Start: 01-03-2025 Adult BMI Follow Up Plan Adult BMI Follow Up Plan [facility] Start: 01-03-2025 Adult BMI Screening Adult BMI Screen ing [facility] Start: 01-03-2025 Depression Screening Depression Scre ening [facility] Start: 01-03-2025 Tobacco Screening Tobacco Screening [facility] Start: 12-11-2024 End: 12-11-2024 Patient encounter procedure 12/11/2024 1:20 PM EST Office Visit [facility] [address] [place] [id number] Chelsea Lopez, DO [address] [place] [address] Arrived [facility] Comment on above: Arrived Start: 07-15-2024 Influenza vaccination Influenza Vacc ine (#1) [facility] Start: 03-12-2024 End: 03-12-2024 Patient encounter procedure 03/12/2024 11:20 AM EDT Office Visit [facility] Internal Medicine - Family Medicine [address] [place] [address] Matt Sandra, BENEFITS COORDINATOR-CLAM SHUCKING MACHINE TENDER [address] [place] [address] [facility] Internal Medicine - Family [facility] Start: 02-21-2024 End: 02-21-2024 Patient encounter procedure 02/21/2024 9:40 AM EDT [facility] [address] [place] [address] Matt Sandra, BENEFITS COORDINATOR-CLAM SHUCKING MACHINE TENDER [address] [place] [address] [facility] Internal Medicine - [facility] Start: 02-08-2024 End: 02-07-2025 Event monitor Event monitor Cardiac Services Routine Syncope and collapse Expected: 02/08/2024, Expires: 02/07/2025 [facility] Work Phone: Comment on above: Expected: 02/08/2024 , Expires: 02/07/2025 Start: 08-09-2021 Screening for malign ant neoplasm of cervix Pap Smear [facility] Start: 02-02-2007 DTaP,Tdap and Td Vaccines (6 - Tdap) DTaP,Tdap and Td Vaccines (6 - Tdap) [facility] Bacteria identified in Urine by Culture Urine culture Microbiology Routine Hematuria, unspecified type Ordered: 07/10/2025 [facility] Comment on above: Ordered: 07/10/2025 End: 03-12-2025 Basic metabolic 2000 panel - Serum or Plasma Basic Metabolic Panel Lab Routine Nausea 1 Occurrences starting 03/12/2024 until 03/12/2025 [facility] Comment on above: 1 Occurrences starti ng 03/12/2024 until 03/12/2025 End: 03-12-2025 CBC W Auto Differential panel - Blood CBC auto differential Lab Routine Nausea 1 Occurrences starting 03/12/2024 until 03/12/2025 [facility]: Comment on above: 1 Occurrences starti ng 03/12/2024 until 03/12/2025 CHLAMYDIA TRACHOMATI S (GENITO/STI) CHLAMYDIA TRACHOMATIS (GENITO/STI) Lab Routine Screening examination for STI Ordered: 04/03/2025 [facility] Comment on above: Ordered: 04/03/2025 Cytology Cervical or vaginal smear or scraping study Pap Smear Pathology and Cytology Routine Well woman exam with routine gynecological exam Ordered: 12/11/2024 [facility] Work Phone: Comment on above: Ordered: 12/11/2024 Hepatic function panel [facility] Neisseria gonorrhoea e DNA [Presence] in Unspecified specimen by MARION with probe detection Neisseria gonorrhea DNA probe, direct Lab Routine Screening examination for STI Ordered: 04/03/2025 [facility] Comment on above: Ordered: 04/03/2025 SURESWAB(R) ADVANCED VAGINITIS PLUS, TMA SURESWAB(R) ADVANCED VAGINITIS PLUS, TMA Pathology and Cytology Routine Screening examination for STI Ordered: 04/03/2025 [facility] Work Phone: Comment on above: Ordered: 04/03/2025 US Abdomen limited [facility] Immunizations Immunization Date Immunization Notes Care Provider Maegan argueta 07-30-2002 diphtheria, tetanus toxoids and acellular pertussis vaccine Matt Sandra BENEFITS COORDINATOR-[facility] Work Phone: [facility] 07-30-2002 measles, mumps and rubella virus vaccine Matt Sandra BENEFITS COORDINATOR-[facility] Work Phone: [facility] 07-30-2002 poliovirus vaccine, inactivated Matt [facility] Work Phone: [facility] 06-14-1997 diphtheria, tetanus toxoids and acellular pertussis vaccine Matt Sandra BENEFITS COORDINATOR-[facility] Work Phone: [facility] 06-14-1997 haemophilus influenz ae type b vaccine, conjugate unspecified formulation Matt [facility] Work Phone: [facility] 06-14-1997 measles, mumps and rubella virus vaccine Matt Sandra BENEFITS COORDINATOR-CL[employer] SHUCKING MACHINE TENDER Work Phone: [facility] 1996 diphtheria, tetanus toxoids and acellular pertussis vaccine Matt Sandra BENEFITS COORDINATOR-[employer] SHUCKING MACHINE TENDER Work Phone: [facility] 1996 haemophilus influenz ae type b vaccine, conjugate unspecified formulation Matt Sandra BENEFITS COORDINATOR-[employer] SHUCKING MACHINE TENDER Work Phone: [facility] 1996 hepatitis B vaccine, adult dosage Matt Sandra BENEFITS COORDINATOR-[employer] SHUCKING MACHINE TENDER Work Phone: [facility] 1996 poliovirus vaccine, inactivated Matt Sandra BENEFITS COORDINATOR-CL[employer] SHUCKING MACHINE TENDER Work Phone: [facility] 1996 diphtheria, tetanus toxoids and acellular pertussis vaccine Matt Sandra BENEFITS COORDINATOR-CLAM SHUCKING MACHINE TENDER Work Phone: [facility] 1996 haemophilus influenz ae type b vaccine, conjugate unspecified formulation Matt Sandra BENEFITS COORDINATOR-[facility] Work Phone: [facility] 1996 poliovirus vaccine, inactivated Matt Sandra BENEFITS COORDINATOR-CL[employer] SHUCKING MACHINE TENDER Work Phone: [facility] 1996 diphtheria, tetanus toxoids and acellular pertussis vaccine Mtat Sandra BENEFITS COORDINATOR-CL[employer] SHUCKING MACHINE TENDER Work Phone: [facility] 1996 haemophilus influenz ae type b vaccine, conjugate unspecified formulation Matt Sandra BENEFITS COORDINATOR-[facility] Work Phone: [facility] 1996 hepatitis B vaccine, adult dosage Matt Sandra BENEFITS COORDINATOR-[employer] SHUCKING MACHINE TENDER Work Phone: [facility] 1996 poliovirus vaccine, inactivated Matt Sandra BENEFITS COORDINATOR-[employer] SHUCKING MACHINE TENDER Work Phone: [facility] 1996 hepatitis B vaccine, adult dosage Matt Sandra BENEFITS COORDINATOR-CL[employer] SHUCKING MACHINE TENDER Work Phone: [facility] Payers Date Payer Category Payer Medicaid [id number] 2022 Medicaid [id number] 2017 Unknown [id number] 1996 Unknown [id number] 2.16.84 [id number] 1996 Unknown [id number] 2.16.84 0.1.535951.3.579.2.593 1996 Unknown [id number] 2.16.84 0.1.393303.3.579.2.593 1996 Unknown [id number] 2.16.8 40.1.286981.3.579.2.1286 1996 Unknown [id number] 2.16.8 40.1.055195.3.579.2.1286 1996 Unknown [id number] 2.16.8 40.1.450848.3.579.2.1286 1996 Unknown [id number] 2.16.8 40.1.542503.3.579.2.1286 1996 Unknown [id number] 2.16.8 40.1.268379.3.579.2.1259 1996 Unknown [id number] 2.16.8 40.1.290183.3.579.2.1259 1996 Unknown [id number] 2.16.8 40.1.062255.3.579.2.1259 1996 Unknown [id number] 2.16.8 40.1.904889.3.579.2.1259 1996 Unknown [id number] 2.16.8 40.1.303720.3.579.2.1259 1996 Unknown [id number] 2.16.8 40.1.182510.3.579.2.1259 1996 Unknown [id number] 2.16.8 40.1.927295.3.579.2.1259 1996 Unknown [id number] 2.16.84 0.1.504923.3.579.2.1259 1996 Unknown [id number] 2.16.84 0.1.983372.3.579.2.1259 1996 Unknown [id number] 2.16.84 0.1.513322.3.579.2.1259 1996 Unknown [id number] 2.16.84 0.1.989587.3.579.2.1259 1996 Unknown [id number] 2.16.84 0.1.365992.3.579.2.1259 1959 Unknown [id number] Social History Date Type Detail Facility Start: 07-04-2023 End: 07-03-2024 Tobacco smoking status LAIS Never smoked tobacco (finding) [facility] Start: 1995 Sex Assigned At Female F [facility] Start: 07-04-2023 End: 01-03-2024 Tobacco use and exposure Smokeless tobacco non-user [facility] Start: 12-05-2023 End: 07-10-2025 Alcoholic beverage intake Lifetime non-drinker (finding) [facility] Start: 12-05-2023 End: 12-11-2024 History of Social function [facility] Start: 12-05-2023 End: 12-11-2024 Tobacco use panel [facility] Start: 1995 Sex assigned at Not on file P [facility] Start: 01-03-2024 End: 03-12-2024 Alcohol intake Current non-drinker of alcohol (finding) [facility] Do you belong to any clubs or organizations such as rastafarian groups, unions, fraternal or athletic groups, or school groups? No [facility] Are you now , , , , never or living with a partner? Never [facility] How often to you hav e a drink containing alcohol? Monthly or less [facility] How many standard dr inks containing alcohol do you have on a typical day? 1 or 2 [facility] How often do you hav e 6 or more drinks on 1 occasion? Less than monthly [facility] How hard is it for y ou to pay for the very basics like food, housing, medical care, and heating Somewhat hard [facility] Adolescent depressio n screening assessment 5 [facility] Do you feel stress - tense, restless, nervous, or anxious, or unable to sleep at night because your mind is troubled all the time - these days [OSQ] Rather much [facility] Start: 10-19-2019 Education 12 [facility] Start: 12-02-2024 [facility] Clinical Notes 01-03-2024 to 07-29-2025 Neyda Goldberg LPN - 07/29/2025 11:30 AM Neema Patino NP - 07/10/2025 2:10 PM DAVID Kaur - 06/26/2025 1:30 PM Ernie Weir LPN - 06/11/2025 2:00 PM EDT Note Date & Type Note Facility 07-29-2025 History of Presen t illness Narrative Reason [...] nursing note reviewed. Exam conducted with a steam turbine assembler present. Vitals: Estimated body mass index is 35.1 kg/m as calculated from the following: Height as of 11/30/22: 5' 3 . Weight as of this encounter: 198 lb 1.9 oz. BP: 110/68 Patient's last menstrual period was 11/18/2024. ASSESSMENT & PLAN ICD-10-CM 1. Third trimester ([facility]) Z34.93 CULTURE, GROUP B STREP WITH SUSCEPTIBLITY CULTURE, GROUP B STREP WITH SUSCEPTIBLITY POCT urinalysis dipstick manually resulted 2. 36 weeks gestation of ([facility]) Z3A.36 POCT urinalysis dipstick manually resulted Patient presents today for a routine obstetrics appointment. Patient is currently 36w1d with a Estimated Date of Delivery: 08/25/25. Discussed delivery next Tuesday for LGA. Patietn and spouse agreeable for IOL. Patient to sign IOL consents prior to leaving office today. Patient to arrive at [facility] on Tuesday night on 08/04/25 @6:30pm on Tuesday. GBS was obtained without difficulty and patient signed IOL consent. Spoke with Hope at [facility] FB to add patient to the books for Tuesday. Patient to schedule for 6 week appointment. Documented by Neyda Goldberg LPN on behalf of: Chelsea Lopez DO documented in this encounter [facility] 07-10-2025 History of Presen t illness Narrative [...] ASSESSMENT & PLAN ICD-10-CM 1. Third trimester ([facility]) Z34.93 POCT urinalysis dipstick manually resulted 2. 33 weeks gestation of ([facility]) Z3A.33 Return OB: Patient presents today [...] Chelsea Lopez DO documented in this encounter [facility] 06-26-2025 History of Presen t illness Narrative [...] ASSESSMENT & PLAN ICD-10-CM 1. Third trimester ([facility]) Z34.93 POCT urinalysis dipstick manually resulted 2. 31 weeks gestation of ([facility]) Z3A.31 Return OB: Patient presents today [...] of: DAVID Reid documented in this encounter [facility] 06-11-2025 History of Presen t illness Narrative [...] nursing note reviewed. Exam conducted with a steam turbine assembler present. Vitals: Estimated body mass index is 34.06 kg/m as calculated from the following: Height as of 11/30/22: 5' 3 . Weight as of this encounter: 192 lb 4 oz. BP: 122/68 Patient's last menstrual period was 11/18/2024. ASSESSMENT & PLAN ICD-10-CM 1. Third trimester ([facility]) Z34.93 POCT urinalysis dipstick manually resulted 2. 29 weeks gestation of ([facility]) Z3A.29 3. Anemia affecting in third trimester ([facility]) O99.013 iron polysaccharides (ProFe) 391.3 (180 Fe) MG capsule 4. Excessive growth affecting management of , antepartum, single or unspecified fetus ([facility]) O36.60X0 Return OB: Patient presents today [...] Chelsea Lopez DO documented in this encounter [facility] 05-29-2025 History of Presen t illness Narrative [...] ASSESSMENT & PLAN ICD-10-CM 1. Second trimester ([facility]) Z34.92 POCT urinalysis dipstick manually resulted 2. 27 weeks gestation of ([facility]) Z3A.27 Return OB: Patient presents today [...] of: DAVID Reid documented in this encounter [facility] 05-02-2025 History of Presen t illness Narrative [...] Glucose tolerance, 1 hour 2. Second trimester ([facility]) Z34.92 POCT urinalysis dipstick manually resulted 3. 23 weeks gestation of ([facility]) Z3A.23 Return OB: Patient presents today [...] Chelsea Lopez DO documented in this encounter [facility] 04-03-2025 History of Presen t illness Narrative [...] of: DAVID Reid documented in this encounter [facility] 02-26-2025 History of Presen t illness Narrative [...] nursing note reviewed. Exam conducted with a steam turbine assembler present. Vitals: Estimated body mass index [...] or undercooked meat, and stay away from [facility]. Patient has been consulted regarding any further do's and don'ts of . Patient voiced understanding and all questions and concerns were answered. Orders Placed This Encounter Procedures POCT urinalysis dipstick manually resulted Follow Up: Patient is to return in 4 weeks for routine OB appointment. Documented by Audrey Weir LPN on behalf of: Chelsea Lopez DO documented in this encounter [facility] 12-11-2024 History of Presen t illness Narrative [...] nursing note reviewed. Exam conducted with a steam turbine assembler present. Vitals: Estimated body mass index [...] Chelsea Lopez DO documented in this encounter [facility] 04-02-2024 Evaluation note Authored July 03, 2024 3:25pm 29-year-old female referred to the GI clinic for evaluation of upper abdominal pain. +upper abdominal pain that has resolved few months ago. She states that she still gets intermittent abdominal discomfort but less severe than how it was Will check CBC, LFTs and Lipase Will arrange US of the upper abdomen [facility] Work Phone: [phone]) 784-283004-29-2024 History of Present illness Narrative* Matt Sandra APRN-CLAM SHUCKING MACHINE TENDER - 03/12/2024 11:20 AM EDT Images from the original note were not included. [address] [facility] [address] SUBJECTIVE: Patient ID: Tara Bruno [...] 10/12/2017 Performed by Sarabjit Odom MD at [facility] TONSILLECTOMY WISDOM TOOTH EXTRACTION Past Medical [...] 03/12/24 1305 documented in this encounterUniversity Hospitals Beachwood Medical CenterTutamee [id number] Miscellaneous Notes* Telephone Encounter - Mikala Murphy CMA - 02/09/2024 9:06 AM EDT Pt called and was in to see you yesterday 02/07 and is stuffed up today and coughing up yellow. Could you send in something to her local pharmacy? * Telephone Encounter - JAY Knight - 02/09/2024 9:06 AM EDT Zpak sent to [facility] pharmacy. Please remind her to do bilingual nanny as ordered by Melinda. * Telephone Encounter - Mikala Murphy CMA - 02/09/2024 9:06 AM EDT I called and read your note. Pt will get scheduled after this illness [facility] Tele[facility] encounter Note* Telephone Encounter - Mikala Murphy CMA - 02/09/2024 9:06 AM EDT Pt called and was in to see you yesterday 02/07 and is stuffed up today and coughing up yellow. Could you send in something to her local pharmacy? [facility]03-28-2024 Telephone encounter Note* Telephone Encounter - JAY Knight - 02/09/2024 9:06 AM EDT [facility] Please remind her to do bilingual nanny as ordered by Melinda. [facility]03-28-2024 Telephone encounter Note* Telephone Encounter - Mikala Murphy CMA - 02/09/2024 9:06 AM EDT I called and read your note. Pt will get scheduled after this illness [facility]03-27-2024 History of Present illness Narrative* JAY Little - 02/08/2024 11:40 AM EDT [address] [place] [id number] Patient: Tara Bruno Date of : 1995 [...] 10/12/2017 Performed by Sarabjit Odom MD at [facility] TONSILLECTOMY WISDOM TOOTH EXTRACTION Current Outpatient [...] LITTLE APRN-CNP 02/08/24 1255 documented in [facility] History of Present illness Narrative* JAY Knight - 01/03/2024 10:15 AM EST Images from the original note were not included. [address] [facility] [id number] SUBJECTIVE: Patient ID: Tara Bruno is a 28 y.o. female. Chief Complaint Patient presents with Anxiety Tara presents today wishing to restart medication for her moods. She does feel she ideally depressed. Her concern is anxiety, irritability, and feels short tempered. Is managing deal of personal stressors. Custody issues with her children's father who lives out of state. Has graduated from [employer]. 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 Depression [...] 10/12/2017 Performed by Sarabjit Odom MD at [facility] TONSILLECTOMY WISDOM TOOTH EXTRACTION Past Medical [...] JAY Knight 01/03/24 1047 [facility]* Diagnosis Well woman exam with routine gynecological exam Routine gynecological examination documented in this encounter [facility] Healthcare[facility]* Diagnosis Anxiety and depression- Primary [facility] Diagnosis Acute bacterial sinusitis- Primary Acute sinusitis, unspecified [facility]* Diagnosis Viral upper respiratory tract infection- Primary Acute upper respiratory infections of unspecified site Chills Chills (without fever) Epigastric pain Abdominal pain, epigastric Syncope and collapse Gastroesophageal reflux disease, unspecified whether esophagitis present [facility] encounter [facility]* Diagnosis Anxiety and depression- Primary Nausea Nausea alone Syncope, unspecified syncope type [facility]* Diagnosis Second trimester state, incidental 12 weeks gestation of documented in this encounter [facility] Healthcare[facility] note* Diagnosis Second trimester state, incidental 18 weeks gestation of Screening, , for anatomic survey Encounter for anatomic survey Screening examination for STI Need for maternal serum alpha-protein (MSAFP) screening documented in this encounter [facility] Healthcare[facility] note* Diagnosis Diabetes mellitus screening [...] unspecified type documented in this encounter [facility]* Diagnosis Third trimester ([facility]) state, incidental 36 weeks gestation of ([facility]) documented in this encounter [facility] HealthcareInstructions* Attachments The following attachments cannot be sent through Care Everywhere. * Depression (Macanese) documented in [facility] encounter[facility] SystemInstructionsNot on file documented in this encounterProDiley [facility] SystemInstructions* Attachments The following attachments cannot be sent through Care Everywhere. * Acid Reflux and GERD in Adults Discharge Instructions (Macanese) [facility]Inst[facility]* Attachments The following attachments cannot be sent through Care Everywhere. * Nausea and Vomiting, Adult (Macanese) documented in this encounterThe [facility] System Summary Purpose Family History Relationship [...] and content) DATE CREATED AUTHOR 05/10/2018 Yulisa fish DATE CREATED AUTHOR AUTHOR'S ORGANIZ ATION 12/02/2022 [facility] DATE CREATED AUTHOR AUTHOR'S ORGANIZ ATION 02/28/2024 [facility] DATE CREATED AUTHOR AUTHOR'S ORGANIZ ATION 03/13/2024 [facility] DATE CREATED AUTHOR AUTHOR'S ORGANIZ ATION 07/12/2025 [facility] dical Specialists [facility] Care Teams (unrecognized sec tion and [...] July 03, 2024 End: July 03, 2024 Forms Examiner Relationship Specialty Start Date End Date Radha Calix PA [address] [place] [address] PCP Angelita Ortiz [facility] 05/14/24 Forms Examiner Relationship Specialty Start Date End Date Radha Calix PA [address] [place] [address] PCP Angelita Ortiz [facility] 05/14/24 Forms Examiner Relationship Specialty Start Date End Date Matt Sandra APRN-CLAM SHUCKING MACHINE TENDER [address] [place] [address] PCP - General Family Medicine 10/16/19 Forms Examiner Relationship Specialty Start Date End Date Matt Sandra APRN-CLAM SHUCKING MACHINE TENDER [address] [place] [phone] PCP - General Family Medicine 10/16/19 Forms Examiner Relationship Specialty Start Date End Date Matt Sandra APRN-CLAM SHUCKING MACHINE TENDER [address] [place] [address] PCP - General Family Medicine 10/16/19 Forms Examiner Relationship Specialty Start Date End Date Radha Calix PA NPI: PCP - [facility] [place] [facility] 05/14/24 Forms Examiner Relationship Specialty Start Date End Date Radha Calix PA NPI: PCP - [facility] [place] [facility] 05/14/24 Forms Examiner Relationship Specialty Start Date End Date Radha Calix PA PCP - [facility] [place] [facility] 05/14/24 Forms Examiner Relationship Specialty Start Date End Date Rdaha Calix PA PCP - [facility] [place] [facility] 05/14/24 Forms Examiner Relationship Specialty Start Date End Date Radha Calix PA PCP - [facility] [place] [facility] 05/14/24 Forms Examiner Relationship Specialty Start Date End Date Radha Calix PA PCP - [facility] [place] [facility] 05/14/24 Forms Examiner Relationship Specialty Start Date End Date Radha Calix PA PCP - [facility] [place] [facility] 05/14/24 Forms Examiner Relationship Specialty Start Date End Date Radha Calix PA PCP - [facility] [place] [facility] 05/14/24 Forms Examiner Relationship Specialty Start Date End Date Radha Calix PA PCP - [facility] [place] [facility] 05/14/24 Forms Examiner Relationship Specialty Start Date End Date Radha Calix PA PCP - [facility] [place] [facility] 05/14/24 Forms Examiner Relationship Specialty Start Date End Date Radha Calix PA PCP - NOMRuth Ort[facility] 05/14/24 Goals (unrecognized section and content) Goals [...] BE BASED ON THE PRIMARY CLINICAL RECORDS. [employer] provides no warranty or guarantee of the accuracy or completeness of information in this document.
== END 2025-07-29 19:50 | disposition home or self-care (01) ==
LOC: LAB 19:49
PROVIDERS: PCP Nurse Practitioner; Visit Provider Obstetrics & Gynecology
DX: Z34.93 Encounter for supervision of normal pregnancy, unspecified, third trimester (principal)
CPT/HCPCS: 87081

== ENCOUNTER 2025-07-31 09:55 | Outpatient (OUT) | payer MEDICAID, SELFPAY ==
--- OUTSIDE RECORDS SUMMARY | 2025-07-31 10:02 | XMS_ITS | CCD ---
Author Organization [facility] Care Team Providers Care Professor/Nurse Anesthetist Name Role Phone JOHN, DR TRAN Admitting Unavailable JOHN, DR TRAN Attending Unavailable SANDRA, MATT Primary Care Unavailable JOHN, DR TRAN Consulting Unavailable JOHN, DR TRAN Admitting Unavailable JOHN, DR TRAN Attending Unavailable JOHN, DR TRAN Consulting Unavailable SANDRA, MATT Primary Care Unavailable Zieber, DR aPez Consulting Unavailable JOHN, DR TRAN Admitting Unavailable [...] Primary Care Unavailable Radha Dickerson Unavailable Sandra PUBLIC RELATIONS OFFICER-LOSS PREVENTION AGENT, Matt J Primary Care [facility] er Radha Dickerson Unavailable [phone] CHELSEA LOPEZ Attending Unavailable CHELSEA LOPEZ Attending Unavailable JOSI DUENAS Attending Unavailable JOHNCHELSEA Alcazar Attending Unavailable YULISSAJOSI TO Attending Unavailable JOHNCHELSEA Alcazar Attending Unavailable JOSI DUENAS Attending Unavailable CHELSEA LOPEZ Referring Unavailable CHELSEA LOPEZ Attending Unavailable JO ANN PATINO Referring Unavailable CHELSEA LOPEZ Attending Unavailable Allergies Allergy Classification Reported Allergen(s) Allergy Type Date of Onset Reaction(s) Facility (1 source) Cephalexin Drug Allergy 2 [facility] Repository (20 sources) Cephalexin; Translations: [CEPHALEXIN] [...] out!Unclassified (20 sources) No known active problems 08-28-2023 Results Test Name Value Interpretation Reference Range Facility Urinalysis macro (dipstick) panel (U)Ordered By: Hemalatha Fatima on 07-29-2025 Bilirubin, UA Negative Negative - 4(70) +++ mg/dL [facility] Work Phone: Blood, UA Positive Negative - 50 Abhi/mcL [facility] Work Phone: Clarity, UA Clear [facility] Work Phone: Color, UA Yellow [facility] Work Phone: Glucose, UA Negative Negative - 1999(110) ++++ mg/dL [facility] Work Phone: Interpretation and review of laboratory results Normal [facility] Work Phone: Ketones, UA Negative Negative - 160(16) ++++ mg/dL [facility] Work Phone: Leukocytes, UA Negative Negative - 500+++ Pura/mcL [facility] Work Phone: Nitrite, UA Positive Negative - Positive [facility] Work Phone: pH, UA 1 5 - 9 [facility] Work Phone: Protein, UA Negative Negative - 1999(20) ++++ mg/dL [facility] Work Phone: Spec Grav, UA 6.5 1 - 1.03 [facility] Work Phone: Urobilinogen, UA 1.0 0.2 - 12 mg/dL [facility] Work Phone: [facility] Work Phone: US OB BPP W NON-STRESS on 07-24-2025 [place] [address] Ultrasound Report Signed Patient: TARA BRUNO MR#: [id number] : 1995 Acct:[id number] Age/Sex: 30 / F ADM Date: 07/24/25 Loc: US Attending Dr: Jo Ann Patino Ordering Physician: Jo Ann Patino Date of Service: 07/24/25 Procedure(s): US OB BPP w non-stress Accession Number(s): [id number] cc: MATT SANDRA Kristina The [place] [id number] Patient Name: TARA BRUNO MRN: [facility]:[id number] date: 1995 Sex: F Assigned Patient Location: [facility] Current Patient Location: Accession/Order Number: [id number] Exam Date: 07/24/2025 10:02 Report Date: 07/24/2025 11:09 At the request of: JO ANN PATINO Procedure: US OB BPP w non-stress BIOPHYSICAL PROFILE: CLINICAL INFORMATION: Excessive growth COMPARISON: 07/17/2025 There is a single live intrauterine gestation in cephalic presentation. The reported gestational age is 35 weeks 3 days. The heart rate [id number] beats per minute. FINDINGS: TONE: 1 or [...] Kuo M.D. 07/24/2025 11:09 AM Dictation Location: [place] [address] Electronically authenticated by: [id number] Y Date: 07/24/2025 11:09 Dictated By: Audrey Kuo M.D. Signed By: 07/24/25 1111 DD/ 1109 TD/TT: Due Diligence Coordinator: [facility] Radiology, Radiologist, - 07/24/2025 [place] [address] Ultrasound Report Signed Patient: TARA BRUNO MR#: [id number] : 1995 Acct:[id number] Age/Sex: 30 / F ADM Date: 07/24/25 Loc: US Attending Dr: Jo Ann Patino Ordering Physician: Jo Ann Patino Date of Service: 07/24/25 Procedure(s): US OB BPP w non-stress Accession Number(s): [id number] cc: MATT SANDRA ; Jo Ann Patino [place] [address] Patient Name: TARA BRUNO MRN: [id number]:[id number] date: 1995 Sex: F Assigned Patient Location: [facility] Current Patient Location: Accession/Order Number: [id number] Exam Date: 07/24/2025 10:02 Report Date: 07/24/2025 11:09 At the request of: JO ANN PATINO Procedure: US OB BPP w non-stress BIOPHYSICAL PROFILE: CLINICAL INFORMATION: Excessive growth COMPARISON: 07/17/2025 There is a single live intrauterine gestation in cephalic presentation. The reported gestational age is 35 weeks 3 days. The heart rate [id number] beats per minute. FINDINGS: TONE: 1 or [...] Kuo M.D. 07/24/2025 11:09 AM Dictation Location: [place] [address] Electronically authenticated by: [id number] Y Date: 07/24/2025 11:09 Dictated By: Audrey Kuo M.D. Signed By: 07/24/25 1111 DD/ 1109 TD/TT: Due Diligence Coordinator: [facility] Radiology Study observation (narrative) [facility] US OB BPP W NON-STRESS Ordered By: Radiologist Radiology on 07-24-2025 [facility] Work Phone: US OB BPP W NON-STRESS on 07-17-2025 [place] [address] Ultrasound Report Signed Patient: TARA BRUNO MR#: [id number] : 1995 Acct:[id number] Age/Sex: 30 / F ADM Date: 07/17/25 Loc: [facility] 251-[address]: Jo Ann Patino Ordering Physician: Jo Ann Patino Date of Service: 07/17/25 Procedure(s): US OB BPP w non-stress Accession Number(s): [id number] cc: MATT SANDRA Kristina [place] [id number] Patient Name: TARA BRUNO MRN: [id number] date: 1995 Sex: F Assigned Patient Location: [facility] Current Patient Location: [facility] Accession/Order Number: [id number] Exam Date: 07/17/2025 15:03 Report Date: 07/17/2025 15:34 At the request of: JO ANN PATINO Procedure: US OB BPP w non-stress Biophysical profile. Reason for exam: Excessive growth COMPARISON: None TECHNIQUE: Transabdominal imaging of the gravid uterus was obtained. FINDINGS: The cost specialist reports a BPP of 8 out of 8. BENNETT is normal at 15.6 cm. heart rate 145 bpm. US/US OB BPP w non-stress IMPRESSION: BPP 8 out of 8. Impression dictated by: Aaron Acevedo Jr., D.O. 07/17/2025 3:34 PM Dictation Location: [place] [address] Electronically authenticated by: [id number] Y Date: 07/17/2025 15:34 Dictated By: Aaron Acevedo M.D. Signed By: 07/17/25 1537 DD/ 153 TD/TT: Due Diligence Coordinator: [facility] Radiology, Radiologist, - 07/17/2025 [place] [address] Ultrasound Report Signed Patient: TARA BRUNO MR#: [id number] : 1995 Acct:[id number] Age/Sex: 30 / F ADM Date: 07/17/25 Loc: [facility] 251-[address]: Jo Ann Patino Ordering Physician: Jo Ann Patino Date of Service: 07/17/25 Procedure(s): US OB BPP w non-stress Accession Number(s): [id number] cc: MATT SANDRA Kristina The [place] [address] Patient Name: TARA BRUNO MRN: [facility]:[id number] date: 1995 Sex: F Assigned Patient Location: [facility] Current Patient Location: [facility] Accession/Order Number: [id number] Exam Date: 07/17/2025 15:03 Report Date: 07/17/2025 15:34 At the request of: JO ANN PATINO Procedure: US OB BPP w non-stress Biophysical profile. Reason for exam: Excessive growth COMPARISON: None TECHNIQUE: Transabdominal imaging of the gravid uterus was obtained. FINDINGS: The cost specialist reports a BPP of 8 out of 8. BENNETT is normal at 15.6 cm. heart rate 145 bpm. US/US OB BPP w non-stress IMPRESSION: BPP 8 out of 8. Impression dictated by: Aaron Acevedo Jr., D.O. 07/17/2025 3:34 PM Dictation Location: [place] [address] Electronically authenticated by: [id number] Y Date: 07/17/2025 15:34 Dictated By: Aaron Acevedo M.D. Signed By: 07/17/25 1537 DD/ 33 TD/TT: Due Diligence Coordinator: [facility] Study observation (narrative) [facility] US OB BPP W NON-STRESS Ordered By: Radiologist Radiology on 07-17-2025 [facility] Work Phone: US OB FOLLOW UP TRANSABDOMIN [...] UA Negative Negative - 4(70) +++ mg/dL [facility] Blood, UA Positive Negative - 50 Abhi/mcL [facility] Clarity, UA Clear [facility] Color, UA Yellow [facility] Glucose, UA Negative Negative - 2000(110) ++++ mg/dL [facility] Interpretation and review of laboratory results Abnormal [facility] Ketones, UA Negative Negative - 160(16) ++++ mg/dL [facility] Leukocytes, UA Negative Negative - 500+++ Pura/mcL [facility] Nitrite, UA Negative Negative - Positive [facility] pH, UA 7 5 - 9 [facility] Protein, UA Negative Negative - 1999(20) ++++ mg/dL [facility] Spec Grav, UA 1.005 1 - 1.03 [facility] Urobilinogen, UA 1.0 0.2 - 12 mg/dL [facility] Urinalysis macro (dipstick) panel (U)on 06-26-2025 Bilirubin, UA Negative Negative - 4(70) +++ mg/dL [facility] Blood, UA Positive Negative - 50 Abhi/mcL [facility] Comment on above: Trace Clarity, UA Clear [facility] Color, UA Yellow [facility] Glucose, UA Negative Negative - 1999(110) ++++ mg/dL [facility] Interpretation and review of laboratory results Abnormal [facility] Ketones, UA Positive Negative - 160(16) ++++ mg/dL [facility] Comment on above: Trace Leukocytes, UA Negative Negative - 500+++ Pura/mcL [facility] Nitrite, UA Negative Negative - Positive [facility] pH, UA 6 5 - 9 [facility] Protein, UA Trace Negative - 1999(20) ++++ mg/dL [facility] Spec Grav, UA 1.02 1 - 1.03 [facility] Urobilinogen, UA 0.2 0.2 - 12 mg/dL [facility] US OB FOLLOW UP TRANSABDOMIN AL APPROACHon [...] II, MD, PHD at 12-Jun-2025 07:34:42 AM [facility] Normal Not Available Comment on above: Order Comment: US OB SCAN FOR GROWTH Estimated Date of Delivery: 08/25/25 Gestational Age as of 05/29/2025: 27w3d Urinalysis macro (dipstick) panel (U)on 06-11-2025 Bilirubin, UA Negative Negative - 4(70) +++ mg/dL [facility] Blood, UA Positive Negative - 50 Abhi/mcL [facility] Comment on above: Trace Clarity, UA Clear [facility] Color, UA Yellow [facility] Glucose, UA Negative Negative - 2000(110) ++++ mg/dL [facility] Interpretation and review of laboratory results Abnormal [facility] Ketones, UA Positive Negative - 160(16) ++++ mg/dL [facility] Comment on above: Trace Leukocytes, UA Negative Negative - 500+++ Pura/mcL [facility] Nitrite, UA Negative Negative - Positive [facility] pH, UA 6 5 - 9 [facility] Protein, UA Negative Negative - 2000(20) ++++ mg/dL [facility] Spec Grav, UA 1.015 1 - 1.03 [facility] Urobilinogen, UA 0.2 0.2 - 12 mg/dL [facility] ALL CBC WITH AUTO DIFFon BASOPHILS ABSOLUTE AUTO 0 N [facility] Basophils/100 WBC (Bld) 0.2 % 0.2 - 2.0 % [facility] Eosinophils/100 WBC (Bld) 0.9 % 0.9 - 7.0 % [facility] Erythrocyte distribution width (RBC) [Ratio] 13 % 11.0 - 15.0 % [facility] Hematocrit (Bld) [Volume fraction] 30.1 % Low 36.0 - 48.0 % [facility] Hemoglobin (Bld) [Mass/Vol] 10 g/dL Low 12.0 - 16.0 g/dL [facility] IMMATURE GRANULOCYTES ABS AUTO 0.17 High [facility] Immature granulocytes/100 WBC (Bld) 1.7 % High 0.0 - 0.5 % [facility] Interpretation and review of laboratory results Abnormal [facility] LYMPHOCYTES ABSOLUTE AUTO 1.5 [facility] Lymphocytes/100 WBC (Bld) 15.2 % Low 20.5 - 60.0 % [facility] MCH (RBC) [Entitic mass] 29.2 pg 26.7 - 34.0 pg [facility] MCHC (RBC) [Mass/Vol] 33.2 g/dL 29.9 - 35.2 g/dL [facility] MCV (RBC) [Entitic vol] 88 fL 81.0 - 99.0 fL [facility] MONOCYTES ABSOLUTE AUTO 0.5 N [facility] Monocytes/100 WBC (Bld) 5.4 % 1.7 - 12.0 % [facility] NEUTROPHILS ABSOLUTE AUTO 7.5 High [facility] Neutrophils/100 WBC (Bld) 76.6 % High 43.0 - 75.0 % [facility] Platelet mean volume (Bld) [Entitic vol] 9.1 fL Low 9.5 - 13.5 fL [facility] EO # 0.1 [facility] PLT [address] [facility] RBC 3.42 Low [facility] WBC 9.7 [facility] Urinalysis macro (dipstick) panel (U)on 05-29-2025 Bilirubin, UA Negative Negative - 4(70) +++ mg/dL [facility] Blood, UA Positive Negative - 50 Abhi/mcL [facility] Comment on above: trace Clarity, UA Clear [facility] Color, UA Yellow [facility] Glucose, UA Positive Negative - 2000(110) ++++ mg/dL [facility] Comment on above: 100 Interpretation and review of laboratory results Abnormal [facility] Ketones, UA Negative Negative - 160(16) ++++ mg/dL [facility] Leukocytes, UA Negative Negative - 500+++ Pura/mcL [facility] Nitrite, UA Negative Negative - Positive [facility] pH, UA 6 5 - 9 [facility] Protein, UA Negative Negative - 1999(20) ++++ mg/dL [facility] Spec Grav, UA 1.01 1 - 1.03 [facility] Urobilinogen, UA 0.2 0.2 - 12 mg/dL [facility] Urinalysis macro (dipstick) panel (U)on 05-02-2025 Bilirubin, UA Negative Negative - 4(70) +++ mg/dL [facility] Blood, UA Positive Negative - 50 Abhi/mcL [facility] Comment on above: small Clarity, UA Clear [facility] Color, UA Yellow [facility] Glucose, UA Positive Negative - 1999(110) ++++ mg/dL [facility] Comment on above: 100mg/dL Interpretation and review of laboratory results Abnormal [facility] Ketones, UA Negative Negative - 160(16) ++++ mg/dL [facility] Leukocytes, UA Negative Negative - 500+++ Pura/mcL [facility] Nitrite, UA Negative Negative - Positive [facility] pH, UA 6 5 - 9 [facility] Protein, UA Positive Negative - 1999(20) ++++ mg/dL [facility] Comment on above: 30mg/dL Spec Grav, UA 1.03 1 - 1.03 [facility] Urobilinogen, UA 0.2 0.2 - 12 mg/dL [facility] No Panel InformationOrdered By: Radiologist Radiology on 04-10-2025 [facility] Work Phone: No Panel Informationon 04-10 Radiology Study observation (narrative) [facility] US OB ANATOMYon 04-10-2025 [place] [address] Ultrasound Report Signed Patient: TARA BRUNO MR#: [id number] : 1995 Acct:[id number] Age/Sex: 30 / F ADM Date: 04/10/25 Loc: US Attending Dr: Chelsea Lopez D.O. Ordering Physician: Chelsea Lopez D.O. Date of Service: 04/10/25 Procedure(s): US OB anatomy Accession Number(s): [id number] cc: MATT SANDRA ; Chelsea Lopez D.O. [place] [id number] Patient Name: TARA BRUNO MRN: [facility]:[id number] date: 1995 Sex: F Assigned Patient Location: Current Patient Location: US Accession/Order Number: [id number] Exam Date: 04/10/2025 16:00 Report Date: 04/10/2025 [...] Wynn M.D. 04/10/2025 4:04 PM Dictation Location: [place] [address] Electronically authenticated by: [id number] Y Date: 04/10/2025 16:04 Dictated By: Ashish Wynn D.O. Signed By: 04/10/25 1607 DD/ 1604 TD/TT: Due Diligence Coordinator: [facility] Radiology, Radiologist, - 04/10/[address] [address] Ultrasound Report Signed Patient: TARA BRUNO MR#: [id number] : 1995 Acct:[id number] Age/Sex: 30 / F ADM Date: 04/10/25 Loc: US Attending Dr: Chelsea Lopez D.O. Ordering Physician: Chelsea Lopez D.O. Date of Service: 04/10/25 Procedure(s): US OB anatomy Accession Number(s): [id number] cc: MATT SANDRA ; Chelsea Lopez D.O. The [address] [address] Patient Name: TARA BRUNO MRN: [id number]:[id number] date: 1995 Sex: F Assigned Patient Location: US Current Patient Location: US Accession/Order Number: [id number] Exam Date: 04/10/2025 16:00 Report Date: 04/10/2025 [...] Wynn M.D. 04/10/2025 4:04 PM Dictation Location: [employer] Electronically authenticated by: [id number] Y Date: 04/10/2025 16:04 Dictated By: Ashish Wynn D.O. Signed By: 04/10/25 1607 DD/ 03 TD/TT: Due Diligence Coordinator: [facility] US OB CERVICAL LENGTHon 03-15 [place] [address] Ultrasound Report Signed Patient: TARA BRUNO MR#: [id number] : 1995 Acct:[id number] Age/Sex: 30 / F ADM Date: 04/10/25 Loc: US Attending Dr: Chelsea Lopez D.O. Ordering Physician: Chelsea Lopez D.O. Date of Service: 04/10/25 Procedure(s): US OB cervical length Accession Number(s): [id number] cc: MATT SANDRA Corey D.O. [place] [id number] Patient Name: TARA BRUNO MRN: [id number]:[id number] date: 1995 Sex: F Assigned Patient Location: US Current Patient Location: US Accession/Order Number: [id number] Exam Date: 04/10/2025 16:04 Report Date: 04/10/2025 16:04 At the request of: CHELSEA LOPEZ DO Procedure: US OB cervical length Obstetrical ultrasound to assess for cervical length Cervical length 3.9 cm. Os closed. US/US OB cervical length IMPRESSION: Cervical length 3.9 cm. Impression dictated by: Ashish Wynn M.D. 04/10/2025 4:04 PM Dictation Location: [employer] Electronically authenticated by: [id number] Y Date: 04/10/2025 16:04 Dictated By: Ashish Wynn D.O. Signed By: 04/10/251606 DD/ 03 TD/TT: Due Diligence Coordinator: [facility] Radiology, Radiologist, - 04/10/2025 [place] [address] Ultrasound Report Signed Patient: TARA BRUNO MR#: [id number] : 1995 Acct:[id number] Age/Sex: 30 / F ADM Date: 04/10/25 Loc: US Attending Dr: Chelsea Lopez D.O. Ordering Physician: Chelsea Lopez D.O. Date of Service: 04/10/25 Procedure(s): US OB cervical length Accession Number(s): [id number] cc: MATT SANDRA ; Chelsea Lopez D.O. The [place] [address] Patient Name: TARA BRUNO MRN: [facility]:[id number] date: 1995 Sex: F Assigned Patient Location: US Current Patient Location: US Accession/Order Number: [id number] Exam Date: 04/10/2025 16:04 Report Date: 04/10/2025 16:04 At the request of: CHELSEA LOPEZ DO Procedure: US OB cervical length Obstetrical ultrasound to assess for cervical length Cervical length 3.9 cm. Os closed. US/US OB cervical length IMPRESSION: Cervical length 3.9 cm. Impression dictated by: Ashish Wynn M.D. 04/10/2025 4:04 PM Dictation Location: [place] [address] Electronically authenticated by: [id number] Y Date: 04/10/2025 16:04 Dictated By: Ashish Wynn D.O. Signed By: 04/10/251606 DD/ 03 TD/TT: Due Diligence Coordinator: [facility] RECURRENT VAGINITIS (HTRX)on 04-04-2025 ATOPOBIUM VAGINAE 27.45 Abnormal [facility] Healthcare ATOPOBIUM VAGINAE Detected Abnormal [facility] BVAB 2,3 (BACTERIAL VAGINOSIS ASSOCIATED BACTERIA 2, 3); MOBILUNCUS SPP 17.543 Abnormal [facility] BVAB 2,3 (BACTERIAL VAGINOSIS ASSOCIATED BACTERIA 2, 3); MOBILUNCUS SPP Detected Abnormal [facility] AYSHA ALBICANS, PARAPSILOSIS, TROPICALIS 0 [facility] AYSHA ALBICANS, PARAPSILOSIS, TROPICALIS Not detected [facility] AYSHA GLABRATA 0 [facility] AYSHA GLABRATA Not detected [facility] AYSHA KRUSEI 16.514 Abnormal [facility] AYSHA KRUSEI Detected Abnormal [facility] CHLAMYDIA TRACHOMATIS 0 [facility] CHLAMYDIA TRACHOMATIS Not detected [facility] ERMB, C; MEFA 22.692 Abnormal [facility] ERMB, C; MEFA Detected Abnormal [facility] GARDNERELLA VAGINALIS 26.666 Abnormal [facility] GARDNERELLA VAGINALIS Detected Abnormal [facility] Interpretation and review of laboratory results Abnormal [facility] MEGASPHAERA (TYPES 1, 2) 21.837 Abnormal [facility] MEGASPHAERA (TYPES 1, 2) Detected Abnormal [facility] MYCOPLASMA GENITALIUM 0 [facility] MYCOPLASMA GENITALIUM Not detected N [facility] NEISSERIA GONORRHOEAE 0 [facility] NEISSERIA GONORRHOEAE Not detected N [facility] TET B, TET M 20.933 Abnormal [facility] TET B, TET M Detected Abnormal [facility] TRICHOMONAS VAGINALIS 0 [facility] TRICHOMONAS VAGINALIS Not detected N [facility] Urinalysis macro (dipstick) panel (U)on 04-03-2025 Bilirubin, UA Negative Negative - 4(70) +++ mg/dL [facility] Blood, UA Positive Negative - 50 Abhi/mcL [facility] Comment on above: trace Clarity, UA Clear [facility] Color, UA Yellow [facility] Glucose, UA Positive Negative - 1999(110) ++++ mg/dL [facility] Comment on above: 100 Interpretation and review of laboratory results Abnormal [facility] Ketones, UA Negative Negative - 160(16) ++++ mg/dL [facility] Leukocytes, UA Positive Negative - 500+++ Pura/mcL [facility] Comment on above: small Nitrite, UA Negative Negative - Positive [facility] pH, UA 6 5 - 9 [facility] Protein, UA Trace Negative - 1999(20) ++++ mg/dL [facility] Spec Grav, UA 1.02 1 - 1.03 [facility] Urobilinogen, UA 0.2 0.2 - 12 mg/dL [facility] Urinalysis macro (dipstick) panel (U)on 02-26-2025 Bilirubin, UA Negative Negative - 4(70) +++ mg/dL [facility] Blood, UA Negative Negative - 50 Abhi/mcL [facility] Clarity, UA Clear [facility] Color, UA Yellow [facility] Glucose, UA Negative Negative - 1999(110) ++++ mg/dL [facility] Interpretation and review of laboratory results Normal [facility] Ketones, UA Negative Negative - 160(16) ++++ mg/dL [facility] Leukocytes, UA Negative Negative - 500+++ Pura/mcL [facility] Nitrite, UA Negative Negative - Positive [facility] pH, UA 6 5 - 9 [facility] Protein, UA Negative Negative - 1999(20) ++++ mg/dL [facility] Spec Grav, UA 1.02 1 - 1.03 [facility] Urobilinogen, UA 0.2 0.2 - 12 mg/dL [facility] US OB TRANSVAGINALon 025 US OB TRANSVAGINAL [...] II, MD, PHD at 27-Jan-2025 07:45:14 AM [facility] Normal Not Available Comment on above: Order Comment: US OB TRANSVAGINAL No LMP recorded. IGP,APTIMA HPV,AGE GDLNon AGE GDLN ACOG TESTING Note . [facility] Comment on above: TESTS RESULT FLAG UN ITS REF RANGE LAB Clinician Provided Cytology Information Source.............Cervix;Endocervix No. of containers..01 ThinPrep Vial Age Algo ACOG Violetta... -[age] FLAG LEGEND: L-Low Normal,H-High Normal,LL-Alert Low,HH-Alert High <-Panic Low,>-Panic High,A-Abnormal,AA-Critical Abnormal Performed at: 01 [facility] [place] [address] Adriana Pfeiffer MD, IGP, RFX APTIMA HPV ASCU Note . [facility] Comment on above: TESTS RESULT FLAG UN ITS REF RANGE LAB DIAGNOSIS: 02 NEGATIVE FOR INTRAEPITHELIAL LESION OR MALIGNANCY. Specimen adequacy: 02 Satisfactory for evaluation. Endocervical and/or squamous metaplastic cells (endocervical component) are present. Performed by: 02 Erin Barbosa Director Of Critical Care ([facility]) . 02 Note: Note 02 [...] <-Panic Low,>-Panic High,A-Abnormal,AA-Critical Abnormal Performed at: [address] [place] [address] Adriana Pfeiffer MD, Performed at: = - [facility] [address] [id number] Napper Tender: Adriana Pfeiffer MD, Phone: [phone] Performed at: [facility] [address] [id number] Napper Tender: Adriana Pfeiffer MD, Phone: [phone] BRUSH-SPATULA CERVIX ENDOCERVIX [facility] POCT , urineon 02-13 Beta HCG ( test) Ql (U) Negative [facility] POCT Influenza A/Influenza B /SARS-COV-2 VeritorOrdered By: Ellie Ruvalcaba on 02-08-2024 External Poct Influenza A Antigen Negative [facility] External Poct Influenza B Antigen Negative [facility] SARS-CoV-2 (COVID-19) Ag IA.rapid Ql (Resp) Negative [facility] POCT rapid strep Aon 024 Internal Regional Operations Director Check Completed and Passed Yes [facility] Interpretation and review of laboratory results Normal [facility] S. pyogenes Ag IA Ql (Unsp spec) Negative Negative [facility] US PELVIS AND TRANSVAGon US PELVIS [...] 35.1 kg/m2 Chelsea John DO Work Phone: [facility] 07-29-2025 11:39-0400 Body weight 89.87 kg Chelsea John DO Work Phone: [facility] 07-29-2025 11:39-0400 Diastolic blood pressure 68 mm[Hg] Chelsea John DO Work Phone: [facility] 07-29-2025 11:39-0400 Systolic blood pressure 110 mm[Hg] Chelsea John DO Work Phone: [facility] 07-10-2025 14:13-0400 Body mass index (BMI) [Ratio] 34.9 kg/m2 Chelsea John DO Work Phone: [facility] 07-10-2025 14:13-0400 Body weight 89.36 kg Chelsea John DO Work Phone: [facility] 07-10-2025 14:13-0400 Diastolic blood pressure 74 mm[Hg] Chelsea John DO Work Phone: [facility] 07-10-2025 14:13-0400 Systolic blood pressure 122 mm[Hg] Chelsea John DO Work Phone: [facility] 06-26-2025 13:34-0400 Body mass index (BMI) [Ratio] 34.28 kg/m2 Josi Freedom PA Work Phone: [facility] 06-26-2025 13:34-0400 Body weight 87.77 kg Josi Yulissa PA Work Phone: [facility] 06-26-2025 13:34-0400 Diastolic blood pressure 60 mm[Hg] Josi Freedom PA Work Phone: [facility] 06-26-2025 13:34-0400 Systolic blood pressure 116 mm[Hg] Josi Yulissa PA Work Phone: [facility] 06-11-2025 14:47-0400 Body mass index (BMI) [Ratio] 34.06 kg/m2 Chelsea John DO Work Phone: [facility] 06-11-2025 14:47-0400 Body weight 87.2 kg Chelsea John DO Work Phone: [facility] 06-11-2025 14:47-0400 Diastolic blood pressure 68 mm[Hg] Chelsea John DO Work Phone: [facility] 06-11-2025 14:47-0400 Systolic blood pressure 122 mm[Hg] Chelsea John DO Work Phone: [facility] 05-29-2025 13:39-0400 Body mass index (BMI) [Ratio] 33.66 kg/m2 Josi Yulissa PA Work Phone: [facility] 05-29-2025 13:39-0400 Body weight 86.18 kg Josi Yulissa PA Work Phone: [facility] 05-29-2025 13:39-0400 Diastolic blood pressure 70 mm[Hg] Josi Yulissa PA Work Phone: [facility] 05-29-2025 13:39-0400 Systolic blood pressure 110 mm[Hg] Josi Freedom PA Work Phone: [facility] 05-02-2025 09:09-0400 Body mass index (BMI) [Ratio] 32.42 kg/m2 Chelsea John DO Work Phone: [facility] 05-02-2025 09:09-0400 Body weight 83.01 kg Chelsea John DO Work Phone: [facility] 05-02-2025 09:09-0400 Diastolic blood pressure 64 mm[Hg] Chelsea John DO Work Phone: [facility] 05-02-2025 09:09-0400 Systolic blood pressure 102 mm[Hg] Chelsea John DO Work Phone: [facility] 04-03-2025 09:41-0400 Body mass index (BMI) [Ratio] 31 kg/m2 Josi Yulissa PA Work Phone: [facility] 04-03-2025 09:41-0400 Body weight 79.38 kg Josi Freedom PA Work Phone: [facility] 04-03-2025 09:41-0400 Diastolic blood pressure 72 mm[Hg] Josi Yulissa PA Work Phone: [facility] 04-03-2025 09:41-0400 Systolic blood pressure 116 mm[Hg] Josi Yulissa PA Work Phone: [facility] 02-26-2025 09:50-0400 Body mass index (BMI) [Ratio] 29.94 kg/m2 Chelsea John DO Work Phone: [facility] 02-26-2025 09:50-0400 Body weight 76.66 kg Chelsea John DO Work Phone: [facility] 02-26-2025 09:50-0400 Diastolic blood pressure 76 mm[Hg] Chelsea John DO Work Phone: [facility] 02-26-2025 09:50-0400 Systolic blood pressure 110 mm[Hg] Chelsea John DO Work Phone: [facility] 12-11-2024 13:26-0500 Body mass index (BMI) [Ratio] 29.05 kg/m2 Chelsea John DO Work Phone: [facility] 12-11-2024 13:26-0500 Body weight 74.39 kg Chelsea John DO Work Phone: [facility] 12-11-2024 13:26-0500 Diastolic blood pressure 68 mm[Hg] Chelsea John DO Work Phone: [facility] 12-11-2024 13:26-0500 Systolic blood pressure 114 mm[Hg] Chelsea John DO Work Phone: [facility] 07-03-2024 15:11-0400 Body height 157.48 cm [facility] 07-03-2024 15:11-0400 Body mass index (BMI) [Ratio] 29.2 kg/m2 [facility] 07-03-2024 [id number] Body weight 72.57 kg [facility] 03-12-2024 11:21-0400 Body height 157.5 cm Matt Sandra PUBLIC RELATIONS OFFICER-LOSS PREVENTION AGENT Work Phone: [facility] 03-12-2024 11:21-0400 Body mass index (BMI) [Ratio] 28.55 kg/m2 Matt Sandra PUBLIC RELATIONS OFFICER-LOSS PREVENTION AGENT Work Phone: [facility] 03-12-2024 11:21-0400 Body temperature 98.1 [degF] Matt Sandra PUBLIC RELATIONS OFFICER-LOSS PREVENTION AGENT Work Phone: [facility] 03-12-2024 11:21-0400 Body weight 70.81 kg Matt Sandra PUBLIC RELATIONS OFFICER-LOSS PREVENTION AGENT Work Phone: [facility] 03-12-2024 11:21-0400 Diastolic blood pressure 68 mm[Hg] Matt Sandra PUBLIC RELATIONS OFFICER-LOSS PREVENTION AGENT Work Phone: [facility] 03-12-2024 11:21-0400 Heart rate 79 /min Matt Sandra PUBLIC RELATIONS OFFICER-LOSS PREVENTION AGENT Work Phone: [facility] 03-12-2024 11:21-0400 Respiratory rate 20 /min Matt Sandra PUBLIC RELATIONS OFFICER-LOSS PREVENTION AGENT Work Phone: [facility] 03-12-2024 11:21-0400 SaO2% (BldA) [Mass fraction] 100 % Matt Sandra APRN-LOSS PREVENTION AGENT Work Phone: [facility] 03-12-2024 11:21-0400 Systolic blood pressure 110 mm[Hg] Matt Sandra APRN-LOSS PREVENTION AGENT Work Phone: [facility] 02-08-2024 11:53-0400 Body height 157.5 cm Cucobradley Ceron PUBLIC RELATIONS OFFICER-LOSS PREVENTION AGENT Work Phone: [facility] 02-08-2024 11:53-0400 Body mass index (BMI) [Ratio] 28.9 kg/m2 Cuco Ceron PUBLIC RELATIONS OFFICER-LOSS PREVENTION AGENT Work Phone: [facility] 02-08-2024 11:53-0400 Body temperature 98.2 [degF] Cucobradley Ceron PUBLIC RELATIONS OFFICER-LOSS PREVENTION AGENT Work Phone: [facility] 02-08-2024 11:53-0400 Body weight 71.67 kg Cuco Ceron PUBLIC RELATIONS OFFICER-LOSS PREVENTION AGENT Work Phone: [facility] 02-08-2024 11:53-0400 Diastolic blood pressure 68 mm[Hg] Cuco Ceron APRN-LOSS PREVENTION AGENT Work Phone: [facility] 02-08-2024 11:53-0400 Heart rate 97 /min Cucobradley Ceron PUBLIC RELATIONS OFFICER-LOSS PREVENTION AGENT Work Phone: [facility] 02-08-2024 11:53-0400 Respiratory rate 18 /min Cucobradley Ceron PUBLIC RELATIONS OFFICER-LOSS PREVENTION AGENT Work Phone: [facility] 02-08-2024 11:53-0400 SaO2% (BldA) [Mass fraction] 97 % Cuco Ceron PUBLIC RELATIONS OFFICER-LOSS PREVENTION AGENT Work Phone: [facility] 02-08-2024 11:53-0400 Systolic blood pressure 112 mm[Hg] Cuco Ceron APRN-LOSS PREVENTION AGENT Work Phone: [employer] 01-03-2024 10:16-0500 Body height 157.5 cm Matt Sandra APRN-LOSS PREVENTION AGENT [facility] 01-03-2024 10:16-0500 Body mass index (BMI) [Ratio] 29.23 kg/m2 Matt Sandra APRN-LOSS PREVENTION AGENT [facility] 01-03-2024 10:16-0500 Body temperature 97.3 [degF] Matt Sandra APRN-LOSS PREVENTION AGENT [facility] 01-03-2024 10:16-0500 Body weight 72.48 kg Matt Sandra APRN-LOSS PREVENTION AGENT Work Phone: [employer] 01-03-2024 10:16-0500 Diastolic blood pressure 58 mm[Hg] Matt Sandra APRN-LOSS PREVENTION AGENT [facility] 01-03-2024 10:16-0500 Heart rate 72 /min Matt Sandra APRN-LOSS PREVENTION AGENT [facility] 01-03-2024 10:16-0500 SaO2% (BldA) [Mass fraction] 99 % Matt Sandra APRN-LOSS PREVENTION AGENT [facility] 01-03-2024 10:16-0500 Systolic blood pressure 102 mm[Hg] Matt Sandra APRN-LOSS PREVENTION AGENT Work Phone: [facility] Encounters Encounter Date Encounter Type Care Provider Facility Start: 07-29-2025 End: 07-29-2025 Office outpatient visit 15 minutes Chelsea Lopez DO Work Phone: [facility] Comment on above: Third trimester preg alejandro ([facility]); 36 weeks gestation of ([facility]) Start: 07-29-2025 End: 07-29-2025 ambulatory CHELSEA JOHN Not Available Start: 07-24-2025 End: 07-24-2025 Clinisync Result Encounter Jo Ann Patino TELEVISION ANALYZER Work Phone: [facility] External [facility] Unsolicited Start: 07-24-2025 End: 07-24-2025 Clinisync Result Encounter Jo Ann Pulliamly TELEVISION ANALYZER Work Phone: [facility] External Department Unsolicited Start: 07-17-2025 End: 07-17-2025 Clinisync Result Encounter Jo Ann Pulliamly TELEVISION ANALYZER Work Phone: [facility] External Department Unsolicited Start: 07-17-2025 End: 07-17-2025 Clinisync Result Encounter Jo Ann Patino TELEVISION ANALYZER Work Phone: [facility] External Department Unsolicited Start: 07-10-2025 End: 07-10-2025 Office outpatient visit 15 minutes Chelsea John DO Work Phone: [facility] Comment on above: Excessive grow th affecting management of in third trimester, single or unspecified fetus ([facility]) (Primary Dx); Third trimester ([facility]); 33 weeks gestation of ([facility]); Hematuria, unspecified type Start: 07-10-2025 End: 07-10-2025 ambulatory CHELSEA JOHN Not Available Start: 06-26-2025 End: 06-26-2025 Bamboo flowsheet Josi HERNANDEZ Work Phone: [facility] Start: 06-26-2025 End: 06-26-2025 Bamboo flowsheet Josi HERNANDEZ Work Phone: [facility] [place] [facility] Start: 06-26-2025 End: 06-26-2025 Office outpatient visit 15 minutes Josi HERNANDEZ Work Phone: [facility] HER[facility]NDE[facility] Comment on above: Third trimester preg alejandro ([facility]); 31 weeks gestation of ([facility]) Start: 06-26-2025 End: 06-26-2025 ambulatory JOSI DUENAS Not Available Start: 06-11-2025 End: 06-11-2025 ambulatory CHELSEA JOHN Not Available Start: 06-11-2025 End: 06-11-2025 Office outpatient visit 15 minutes Chelsea John DO Work Phone: [facility] HERNANDEZ Comment on above: Third trimester preg alejandro ([facility]); 29 weeks gestation of ([facility]); Anemia affecting in third trimester ([facility]); Excessive growth affecting management of , antepartum, single or unspecified fetus ([facility]) Start: 06-11-2025 End: 06-11-2025 ambulatory CHELSEA [...] incons istent with dates in second trimester ([facility]) (Primary Dx); Second trimester ([facility]); 27 weeks gestation of ([facility]) Start: 05-02-2025 End: 05-02-2025 Bamboo flowsheet [...] above: Diabetes mellitus sc reening; Second trimester ([facility]); 23 weeks gestation of ([facility]) Start: 04-10-2025 End: 04-10-2025 Clinisync Result [...] Not Available Start: 07-03-2024 End: 07-03-2024 ambulatory [facility] Work Phone: Start: 07-03-2024 End: 07-03-2024 Patient encounter procedure [facility] Work Phone: Start: 04-10-2024 Non-patient / Non-visit [facility] Work Phone: Start: 03-12-2024 End: 03-12-2024 ambulatory MATTYOSI SANDRA [facility] Start: 03-12-2024 End: 03-12-2024 Office outpatient visit 15 minutes Matt Sandra PUBLIC RELATIONS OFFICER-LOSS PREVENTION AGENT Work Phone: [facility] Comment on above: Anxiety and depressi on (Primary Dx); Nausea; Syncope, unspecified syncope type Start: 02-27-2024 End: 02-28-2024 ambulatory [facility] Travis abernathytal Start: 02-09-2024 Telephone encounter Mikala sultana [facility] Start: 02-08-2024 End: 02-08-2024 ambulatory [facility] Start: 02-08-2024 End: 02-08-2024 Office outpatient visit 15 minutes [facility] PUBLIC RELATIONS OFFICER-LOSS PREVENTION AGENT Work Phone: [facility] Comment on above: Viral upper respirat ory tract infection (Primary Dx); Chills; Epigastric pain; Syncope and collapse; Gastroesophageal reflux disease, unspecified whether esophagitis present Start: 01-03-2024 End: 01-03-2024 ambulatory [facility] Start: 01-03-2024 End: 01-03-2024 Office outpatient visit 15 minutes [facility] PUBLIC RELATIONS OFFICER-LOSS PREVENTION AGENT Work Phone: [facility] - [facility] Comment on above: Anxiety and depressi on (Primary Dx) Start: 12-01-2022 End: 12-01-[address] CHELSEA LOPEZ Facility:[facility] Start: 11-30-2022 End: 12-01-[address] CHELSEA LOPEZ Facility:[facility] Start: 02-10-2022 End: 02-11-[address] CHELSEA LOPEZ Facility:[facility] Start: 07-29-2017 End: 07-29-2017 Emergency department patient visit [facility] Procedures Date Procedure Procedure Detail Performing Clinician Start: 07-29-2025 Urnls dip stick/tabl et rgnt non-auto w/o micrscp Chelsea Lopez DO Work Phone: Start: 07-24-2025 US OB BPP W NON-STRESS Jo Ann Patino TELEVISION ANALYZER Work Phone: Start: 07-17-2025 US OB BPP W NON-STRESS Jo Ann Patino TELEVISION ANALYZER Work Phone: Start: 07-10-2025 Urnls dip stick/tabl [...] test visual color cmprsn meths Matt Sandra PUBLIC RELATIONS OFFICER-LOSS PREVENTION AGENT Work Phone: Start: 03-12-2024 Adult depression scr eening assessment Matt Sandra PUBLIC RELATIONS OFFICER-[facility] Work Phone: Start: 02-08-2024 Iaadiadoo streptococ cus group a Cuco Ceron PUBLIC RELATIONS OFFICER-[facility] Work Phone: Start: 02-08-2024 POCT INFLUENZA A/INF LUENZA B/SARS-COV-2 VERITOR Cuco Ceron [facility] Work Phone: Start: 02-08-2024 Adult depression scr eening assessment Cuco Ceron PUBLIC RELATIONS OFFICER-[facility] Work Phone: Start: 01-03-2024 Adult depression scr eening assessment Matt Sandra [facility] Work Phone: Start: 08-09-2018 Microscopic observat ion [Identifier] in Cervix by Cyto stain Matt Sandra [facility] Work Phone: Plan of Treatment Date Care Activity Detail Author Start: 12-16-2025 End: 12-16-2025 Patient encounter procedure [facility] Start: 08-05-2025 End: 08-05-2025 Patient encounter procedure 08/05/2025 10:50 AM EDT Routine [facility] [place] [facility] [address] [phone] Chelsea Lopez, [address] [place] [address] [facility] Start: 07-31-2025 End: 07-31-2025 Professional / ancillary services management 07/31/2025 9:30 AM EDT Ancillary Procedure MANDEEP [place] OBMORALES [address] [place] [address] [facility] Start: 07-29-2025 End: 07-29-2026 CULTURE, GROUP B STREP WITH SUSCEPTIBLITY CULTURE, GROUP B STREP WITH SUSCEPTIBLITY Lab Routine Third trimester ([facility]) Expected: 07/29/2025, Expires: 07/29/2026 [facility] Work Phone: Comment on above: Expected: 07/29/2025 , Expires: 07/29/2026 Start: 07-29-2025 End: 07-29-2025 Patient encounter procedure 07/29/2025 9:20 AM EDT Routine [facility] [address] [id number] Josi Duenas PA [address] [place] [address] [facility] Start: 07-15-2025 Influenza vaccination [facility] Start: 07-10-2025 End: 07-10-2025 Patient encounter procedure 07/10/2025 2:10 PM EDT Routine [facility] [address] [id number] Chelsea Lopez DO [address] [place] [address] [facility] Start: 07-10-2025 End: 01-10-2026 US biophysical profile w non stress test US biophysical profile w non stress test Imaging Routine Excessive growth affecting management of in third trimester, single or unspecified fetus ([facility]) Expected: 07/10/2025 (Approximate), Expires: 01/10/2026 [facility] Comment on above: Expected: 07/10/2025 [...] [address] [phone] [facility] Start: 06-26-2025 End: 06-26-2025 Patient encounter procedure [facility] Comment on above: Arrived Start: 06-11-2025 End: 06-11-2025 Patient encounter procedure 06/11/2025 2:00 PM EDT Routine [facility] [address] [place] [phone] Chelsea Lopez DO [address] [place] [address] [facility] Start: 06-11-2025 End: 10-12-2025 US for US OB follow up transabdominal approach Imaging Routine Excessive growth affecting management of , antepartum, single or unspecified fetus ([facility]) Expected: 06/11/2025, Expires: 10/12/2025 [facility] Work Phone: Comment on above: Expected: 06/11/2025 , Expires: 10/12/2025 Start: 06-11-2025 End: 06-11-2025 Professional / ancillary services management 06/11/2025 1:30 PM EDT Ancillary Procedure [facility] [address] [place] [phone] [facility] Start: 05-29-2025 End: 09-29-2025 US for US OB follow up transabdominal approach Imaging Routine Size of fetus inconsistent with dates in second trimester ([facility]) Expected: 05/29/2025, Expires: 09/29/2025 [facility] Work Phone: Comment on above: Expected: 05/29/2025 , Expires: 09/29/2025 Start: 05-29-2025 End: 05-29-2025 Patient encounter procedure 05/29/2025 1:20 PM EDT Routine [facility] [address] [phone] Josi Duenas PA [address] [place] [address] [facility] Start: 05-02-2025 End: 05-02-2026 CBC panel - Blood by Automated count CBC Lab Routine Diabetes mellitus screening Expected: 05/02/2025 (Approximate), Expires: 05/02/2026 [facility] Work Phone: Comment on above: Expected: 05/02/2025 (Approximate), Expires: 05/02/2026 Start: 05-02-2025 End: 05-02-2026 Measurement of glucose 1 hour after glucose challenge for glucose tolerance test Glucose tolerance, 1 hour Lab Routine Diabetes mellitus screening Expected: 05/02/2025 (Approximate), Expires: 05/02/2026 [facility] Healthcare Comment on above: Expected: 05/02/2025 (Approximate), Expires: 05/02/2026 Start: 05-02-2025 End: 05-02-2025 Patient encounter procedure 05/02/2025 8:50 AM EDT Routine [facility] [address] [phone] Chelsea Lopez DO [address] [place] [address] [facility] Start: 04-03-2025 End: 05-04-2025 Alpha fetoprotein, maternal Alpha fetoprotein, maternal Lab Routine Need for maternal serum alpha-protein (MSAFP) screening Expected: 04/03/2025 (Approximate), Expires: 05/04/2025 [facility] Comment on above: Expected: 04/03/2025 (Approximate), Expires: 05/04/2025 Start: 04-03-2025 End: 07-04-2025 US for US OB 14+ weeks anatomy scan Imaging Routine Screening, , for anatomic survey Expected: 04/03/2025, Expires: 07/04/2025 [facility] Comment on above: Expected: 04/03/2025 , Expires: 07/04/2025 Start: 04-03-2025 End: 04-03-2025 Patient encounter procedure [facility] Comment on above: Arrived Start: 03-12-2025 Adult BMI Screening Adult BMI Screen ing [facility] Start: 03-12-2025 Depression Screening Depression Scre ening [facility] Start: 03-12-2025 Tobacco Screening Tobacco Screening [facility] Start: 02-26-2025 End: 02-26-2025 Patient encounter procedure 02/26/2025 9:50 AM EDT Routine [facility] [address] [place] [address] Chelsea Lopez, DO [address] [place], [place] [id number] Arrived [facility] Comment on above: Arrived Start: 02-07-2025 Adult BMI Screening Adult BMI Screen ing [facility] Start: 02-07-2025 Depression Screening Depression Scre ening [facility] Start: 02-07-2025 Tobacco Screening Tobacco Screening [facility] Start: 01-03-2025 Adult BMI Follow Up Plan Adult BMI Follow Up Plan [facility] Start: 01-03-2025 Adult BMI Screening Adult BMI Screen ing [facility] Start: 01-03-2025 Depression Screening Depression Scre ening [facility] Start: 01-03-2025 Tobacco Screening Tobacco Screening [facility] Start: 12-11-2024 End: 12-11-2024 Patient encounter procedure 12/11/2024 1:20 PM EST Office Visit [facility] [address] [place] [address] Chelsea Lopez, DO [address] [place], [place] [id number] Arrived [facility] Comment on above: Arrived Start: 07-15-2024 Influenza vaccination Influenza Vacc ine (#1) [facility] Start: 03-12-2024 End: 03-12-2024 Patient encounter procedure 03/12/2024 11:20 AM EDT Office Visit [facility] [address] [place] [address] Matt Sandra, PUBLIC RELATIONS OFFICER-LOSS PREVENTION AGENT [address] [place] [address] [facility] Start: 02-21-2024 End: 02-21-2024 Patient encounter procedure 02/21/2024 9:40 AM EDT [facility] [address] [place] [address] Matt Sandra, PUBLIC RELATIONS OFFICER-LOSS PREVENTION AGENT [address] [place] [address] [facility] Start: 02-08-2024 End: 02-07-2025 Event monitor Event monitor Cardiac Services Routine Syncope and collapse Expected: 02/08/2024, Expires: 02/07/2025 [facility] Work Phone: Comment on above: Expected: 02/08/2024 , Expires: 02/07/2025 Start: 08-09-2021 Screening for malign ant neoplasm of cervix Pap Smear [facility] Start: 02-02-2007 DTaP,Tdap and Td Vaccines (6 - Tdap) DTaP,Tdap and Td Vaccines (6 - Tdap) [facility] Bacteria identified in Urine by Culture Urine culture Microbiology Routine Hematuria, unspecified type Ordered: 07/10/2025 [facility] Comment on above: Ordered: 07/10/2025 End: 03-12-2025 Basic metabolic 2000 panel - Serum or Plasma Basic Metabolic Panel Lab Routine Nausea 1 Occurrences starting 03/12/2024 until 03/12/2025 [facility] Comment on above: 1 Occurrences starti ng 03/12/2024 until 03/12/2025 End: 03-12-2025 CBC W Auto Differential panel - Blood CBC auto differential Lab Routine Nausea 1 Occurrences starting 03/12/2024 until 03/12/2025 [facility] Work [facility]: Comment on above: 1 Occurrences starti ng 03/12/2024 until 03/12/2025 CHLAMYDIA TRACHOMATI S (GENITO/STI) CHLAMYDIA TRACHOMATIS (GENITO/STI) Lab Routine Screening examination for STI Ordered: 04/03/2025 [facility] Comment on above: Ordered: 04/03/2025 Cytology Cervical or vaginal smear or scraping study Pap Smear Pathology and Cytology Routine Well woman exam with routine gynecological exam Ordered: 12/11/2024 [facility] Work Phone: Comment on above: Ordered: 12/11/2024 Hepatic function panel [facility] Neisseria gonorrhoea e DNA [Presence] in Unspecified specimen by MARION with probe detection Neisseria gonorrhea DNA probe, direct Lab Routine Screening examination for STI Ordered: 04/03/2025 [facility] Comment on above: Ordered: 04/03/2025 SURESWAB(R) ADVANCED VAGINITIS PLUS, TMA SURESWAB(R) ADVANCED VAGINITIS PLUS, TMA Pathology and Cytology Routine Screening examination for STI Ordered: 04/03/2025 [facility] [employer] Work Phone: Comment on above: Ordered: 04/03/2025 US Abdomen limited [facility] Immunizations Immunization Date Immunization Notes Care Provider [facility] 07-30-2002 diphtheria, tetanus toxoids and acellular pertussis vaccine Matt Sandra PUBLIC RELATIONS OFFICER-[facility] Work Phone: [facility] 07-30-2002 measles, mumps and rubella virus vaccine Matt Sandra PUBLIC RELATIONS OFFICER-LOSS PREVENTION AGENT Work Phone: [facility] 07-30-2002 poliovirus vaccine, inactivated Matt Sandra PUBLIC RELATIONS OFFICER-LOSS PREVENTION AGENT Work Phone: [facility] 06-14-1997 diphtheria, tetanus toxoids and acellular pertussis vaccine Matt Sandra PUBLIC RELATIONS OFFICER-[facility] Work Phone: [facility] 06-14-1997 haemophilus influenz ae type b vaccine, conjugate unspecified formulation Matt Sandra PUBLIC RELATIONS OFFICER-LOSS PREVENTION AGENT Work Phone: [facility] 06-14-1997 measles, mumps and rubella virus vaccine Matt Sandra PUBLIC RELATIONS OFFICER-LOSS PREVENTION AGENT Work Phone: [facility] 1996 diphtheria, tetanus toxoids and acellular pertussis vaccine Matt Sandra PUBLIC RELATIONS OFFICER-LOSS PREVENTION AGENT Work Phone: [facility] 1995 haemophilus influenz ae type b vaccine, conjugate unspecified formulation Matt Sandra PUBLIC RELATIONS OFFICER-[facility] Work Phone: [facility] 1995 hepatitis B vaccine, adult dosage Matt Sandra PUBLIC RELATIONS OFFICER-LOSS PREVENTION AGENT Work Phone: [facility] 1995 poliovirus vaccine, inactivated Matt Sandra PUBLIC RELATIONS OFFICER-LOSS PREVENTION AGENT Work Phone: [facility] 1995 diphtheria, tetanus toxoids and acellular pertussis vaccine Matt Sandra PUBLIC RELATIONS OFFICER-[facility] Work Phone: [facility] 1996 haemophilus influenz ae type b vaccine, conjugate unspecified formulation Matt Sandra PUBLIC RELATIONS OFFICER-[facility] Work Phone: [facility] 1996 poliovirus vaccine, inactivated Matt Sandra PUBLIC RELATIONS OFFICER-LOSS PREVENTION AGENT Work Phone: [facility] 1995 diphtheria, tetanus toxoids and acellular pertussis vaccine Matt Sandra PUBLIC RELATIONS OFFICER-[facility] Work Phone: [facility] 1995 haemophilus influenz ae type b vaccine, conjugate unspecified formulation Matt Sandra PUBLIC RELATIONS OFFICER-[facility] Work Phone: [facility] 1996 hepatitis B vaccine, adult dosage Matt Sandra PUBLIC RELATIONS OFFICER-LOSS PREVENTION AGENT Work Phone: [facility] 1996 poliovirus vaccine, inactivated Matt Sandra PUBLIC RELATIONS OFFICER-LOSS PREVENTION AGENT Work Phone: [facility] 1996 hepatitis B vaccine, adult dosage Matt Sandra PUBLIC RELATIONS OFFICER-LOSS PREVENTION AGENT Work Phone: [facility] Payers Date Payer Category Payer Medicaid [id number] 2022 Medicaid [id number] 2017 Unknown [id number] 1996 Unknown [id number] 2.16.84 0.1.962395.3.579.2.593 1996 Unknown [id number] 2.16.84 0.1.514872.3.579.2.593 1996 Unknown [id number] 2.16.84 0.1.445203.3.579.2.593 1996 Unknown [id number] 2.16.8 40.1.580533.3.579.2.1286 1996 Unknown [id number] 2.16.8 40.1.177732.3.579.2.1286 1996 Unknown [id number] 2.16.8 40.1.363807.3.579.2.1286 1996 Unknown [id number] 2.16.8 40.1.066526.3.579.2.1286 1996 Unknown [id number] 2.16.8 40.1.084473.3.579.2.1259 1996 Unknown [id number] 2.16.8 40.1.436603.3.579.2.1259 1996 Unknown [id number] 2.16.8 40.1.143156.3.579.2.1259 1996 Unknown [id number] 2.16.8 40.1.620938.3.579.2.1259 1996 Unknown [id number] 2.16.8 40.1.975907.3.579.2.1259 1996 Unknown [id number] 2.16.8 40.1.140682.3.579.2.9 1996 Unknown [id number] 2.16.8 40.1.236233.3.579.2.9 1996 Unknown [id number] 2.16.8 40.1.151537.3.579.2.9 1996 Unknown [id number] 2.16.8 40.1.590587.3.579.2.9 1996 Unknown [id number] 2.16.84 0.1.792140.3.579.2.9 1996 Unknown [id number] 2.16.84 0.1.108490.3.579.2.9 1996 Unknown [id number] 2.16.84 0.1.968051.3.579.2.9 1996 Unknown [id number] 2.16.84 0.1.915720.3.579.2.9 1996 Unknown [id number] 2.16.84 0.1.684812.3.579.2.1259 1959 Unknown [id number] Social History Date Type Detail Facility Start: 07-04-2023 End: 07-03-2024 Tobacco smoking status MAIS Never smoked tobacco (finding) [facility] Start: 1995 Sex Assigned At Female F [facility] Start: 07-04-2023 End: 01-03-2024 Tobacco use and exposure Smokeless tobacco non-user [facility] Start: 12-05-2023 End: 07-10-2025 Alcoholic beverage intake Lifetime non-drinker (finding) [facility] Start: 12-05-2023 End: 12-11-2024 History of Social function [facility] Start: 12-05-2023 End: 12-11-2024 Tobacco use panel [facility] Start: 1995 Sex assigned at Not on file P [facility] Start: 01-03-2024 End: 03-12-2024 Alcohol intake Current non-drinker of alcohol (finding) [facility] Do you belong to any clubs or organizations such as faith groups, unions, fraternal or athletic groups, or school groups? No [facility] Are you now , , , , never or living with a partner? Never [facility] How often to you hav e a drink containing alcohol? Monthly or less [facility] How many standard dr inks containing alcohol do you have on a typical day? 1 or 2 [facility] How often do you hav e 6 or more drinks on 1 occasion? Less than monthly [facility] How hard is it for y ou to pay for the very basics like food, housing, medical care, and heating Somewhat hard [facility] Adolescent depressio n screening assessment 5 [facility] Do you feel stress - tense, restless, nervous, or anxious, or unable to sleep at night because your mind is troubled all the time - these days [OSQ] Rather much [facility] Start: 10-19-2019 Education 12 [facility] Start: 12-02-2024 [facility] Clinical Notes [...] nursing note reviewed. Exam conducted with a architectural coating finisher present. Vitals: Estimated body mass index is 35.1 kg/m as calculated from the following: Height as of 11/30/22: 5' 3 . Weight as of this encounter: 198 lb 1.9 oz. BP: 110/68 Patient's last menstrual period was 11/18/2024. ASSESSMENT & PLAN ICD-10-CM 1. Third trimester ([facility]) Z34.93 CULTURE, GROUP B STREP WITH SUSCEPTIBLITY CULTURE, GROUP B STREP WITH SUSCEPTIBLITY POCT urinalysis dipstick manually resulted 2. 36 weeks gestation of ([facility]) Z3A.36 POCT urinalysis dipstick manually resulted Patient presents today for a routine obstetrics appointment. Patient is currently 36w1d with a Estimated Date of Delivery: 08/25/25. Discussed delivery next Tuesday for LGA. Patietn and spouse agreeable for IOL. Patient to sign IOL consents prior to leaving office today. Patient to arrive at [facility] on Tuesday night on 08/04/25 @6:30pm on Tuesday. GBS was obtained without difficulty and patient signed IOL consent. Spoke with Hope at [facility] to add patient to the books for Tuesday. Patient to schedule for 6 week appointment. Documented by Neyda Goldberg LPN on behalf of: Chelsea Lopez DO documented in this encounter [facility] 07-10-2025 History of Presen t illness Narrative [...] ASSESSMENT & PLAN ICD-10-CM 1. Third trimester ([facility]) Z34.93 POCT urinalysis dipstick manually resulted 2. 33 weeks gestation of ([facility]) Z3A.33 Return OB: Patient presents today [...] Chelsea Lopez DO documented in this encounter [facility] 06-26-2025 History of Presen t illness Narrative Reason for Appointment: Patient ID: Tara Bruon is a 30 y.o. female who presents [...] ASSESSMENT & PLAN ICD-10-CM 1. Third trimester ([facility]) Z34.93 POCT urinalysis dipstick manually resulted 2. 31 weeks gestation of ([facility]) Z3A.31 Return OB: Patient presents today [...] for routine OB appointment. Documented by DAVID Ried on behalf of: DAVID Reid documented in this encounter [facility] 06-11-2025 History of Presen t illness Narrative [...] nursing note reviewed. Exam conducted with a architectural coating finisher present. Vitals: Estimated body mass index is 34.06 kg/m as calculated from the following: Height as of 11/30/22: 5' 3 . Weight as of this encounter: 192 lb 4 oz. BP: 122/68 Patient's last menstrual period was 11/18/2024. ASSESSMENT & PLAN ICD-10-CM 1. Third trimester ([facility]) Z34.93 POCT urinalysis dipstick manually resulted 2. 29 weeks gestation of ([facility]) Z3A.29 3. Anemia affecting in third trimester ([facility]) O99.013 iron polysaccharides (ProFe) 391.3 (180 Fe) MG capsule 4. Excessive growth affecting management of , antepartum, single or unspecified fetus ([facility]) O36.60X0 Return OB: Patient presents today [...] Chelsea Lopez DO documented in this encounter [facility] 05-29-2025 History of Presen t illness Narrative [...] ASSESSMENT & PLAN ICD-10-CM 1. Second trimester ([facility]) Z34.92 POCT urinalysis dipstick manually resulted 2. 27 weeks gestation of ([facility]) Z3A.27 Return OB: Patient presents today [...] of: DAVID Reid documented in this encounter [facility] 05-02-2025 History of Presen t illness Narrative [...] Glucose tolerance, 1 hour 2. Second trimester ([facility]) Z34.92 POCT urinalysis dipstick manually resulted 3. 23 weeks gestation of ([facility]) Z3A.23 Return OB: Patient presents today [...] Chelsea Lopez DO documented in this encounter [facility] 04-03-2025 History of Presen t illness Narrative [...] of: DAVID Reid documented in this encounter [facility] 02-26-2025 History of Presen t illness Narrative [...] nursing note reviewed. Exam conducted with a architectural coating finisher present. Vitals: Estimated body mass index is [...] or undercooked meat, and stay away from [facility]. Patient has been consulted regarding any further do's and don'ts of . Patient voiced understanding and all questions and concerns were answered. Orders Placed This Encounter Procedures POCT urinalysis dipstick manually resulted Follow Up: Patient is to return in 4 weeks for routine OB appointment. Documented by Audrey Weir LPN on behalf of: Chelsea Lopez DO documented in this encounter [facility] 12-11-2024 History of Presen t illness Narrative [...] nursing note reviewed. Exam conducted with a architectural coating finisher present. Vitals: Estimated body mass index is [...] Chelsea Lopez DO documented in this encounter [facility] 04-02-2024 Evaluation note Authored July 03, 2024 3:25pm 29-year-old female referred to the GI clinic for evaluation of upper abdominal pain. +upper abdominal pain that has resolved few months ago. She states that she still gets intermittent abdominal discomfort but less severe than how it was Will check CBC, LFTs and Lipase Will arrange US of the upper abdomen [facility] Work Phone: [phone]) 614-202604-29-2024 History of Present illness Narrative* Matt Sandra APRN-LOSS PREVENTION AGENT - 03/12/2024 11:20 AM EDT Images from the original note were not included. [address] [place] [address] SUBJECTIVE: Patient ID: Tara Bruno is a [...] 10/12/2017 Performed by Sarabjit Odom MD at [facility] TONSILLECTOMY WISDOM TOOTH EXTRACTION Past Medical [...] symptoms do not resolve. JAY Knight 03/12/24 1304 [facility] Miscellaneous Notes* Telephone Encounter - Mikala Murphy CMA - 02/09/2024 9:06 AM EDT Pt called and was in to see you yesterday 02/07 and is stuffed up today and coughing up yellow. Could you send in something to her local pharmacy? * Telephone Encounter - JAY Knight - 02/09/2024 9:06 AM EDT Zpak sent to [facility]. Please remind her to do oncology social worker as ordered by Melinda. * Telephone Encounter - Mikala Murphy CMA - 02/09/2024 9:06 AM EDT I called and read your note. Pt will get scheduled after this illness [facility] Telephone encounter Note* Telephone Encounter - Mikala Murphy CMA - 02/09/2024 9:06 AM EDT Pt called and was in to see you yesterday 02/07 and is stuffed up today and coughing up yellow. Could you send in something to her local pharmacy? [facility]03-28-2024 Telephone encounter Note* Telephone Encounter - JAY Knight - 02/09/2024 9:06 AM EDT Zpak sent to [facility] pharmacy. Please remind her to do oncology social worker as ordered by Melinda. [facility] [id number] Telephone encounter Note* Telephone Encounter - Mikala Murphy CMA - 02/09/2024 9:06 AM EDT I called and read your note. Pt will get scheduled after this illness [facility]03-27-2024 History of Present illness Narrative* JAY Little - 02/08/2024 11:40 AM EDT [address] [place] [address] Patient: Tara Bruno Date of : 1995 [...] 10/12/2017 Performed by Sarabjit Odom MD at [facility] TONSILLECTOMY WISDOM TOOTH EXTRACTION Current Outpatient [...] LITTLE APRN-CNP 02/08/24 1255 documented [facility] History of Present illness Narrative* JAY Knight - 01/03/2024 10:15 AM EST Images from the original note were not included. [address] [place] [address] SUBJECTIVE: Patient ID: Tara Bruno is a 28 y.o. female. Chief Complaint Patient presents with Anxiety Tara presents today wishing to restart medication for her moods. She does feel she ideally depressed. Her concern is anxiety, irritability, and feels short tempered. Is managing deal of personal stressors. Custody issues with her children's father who lives out of state. Has graduated from [employer]. 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 Depression [...] 10/12/2017 Performed by Sarabjit Odom MD at [facility] TONSILLECTOMY WISDOM TOOTH EXTRACTION Past Medical [...] 01/03/24 1047 [facility]* Diagnosis Well woman exam with routine gynecological exam Routine gynecological examination documented in this encounter [facility] HealthcareEvaluation note* Diagnosis Anxiety and depression- Primary [facility]* Diagnosis Acute bacterial sinusitis- Primary Acute sinusitis, unspecified [facility]* Diagnosis Viral upper respiratory tract infection- Primary Acute upper respiratory infections of unspecified site Chills Chills (without fever) Epigastric pain Abdominal pain, epigastric Syncope and collapse Gastroesophageal reflux disease, unspecified whether esophagitis present [facility]* Diagnosis Anxiety and depression- Primary Nausea Nausea alone Syncope, unspecified syncope type [facility]* Diagnosis Second trimester state, incidental [...] be sent through Care Everywhere. * Depression (Nauruan) documented [facility] SystemInstructionsNot on file documented in this encounterK[facility] SystemInstructions* Attachments The following attachments cannot be sent through Care Everywhere. * Acid Reflux and GERD in Adults Discharge Instructions (Nauruan) documented in this encounterK[facility] SystemInstructions* Attachments The following attachments cannot be sent through Care Everywhere. * Nausea and Vomiting, Adult (Nauruan) documented in this encounterK[facility] Summary Purpose Family History No Family History Records Found Relationship Condition Age at Onset Recorded Date/T shahid maternal grandmother Malignant neoplasm Unknown paternal grandmother Malignant neoplasm Unknown maternal grandfather Diabetes mellitus Unknown Advance Directives No Advanced Directives Records Found Advance Directive Response Recorded Date/ Time Advance [...] CREATED AUTHOR AUTHOR'S ORGANIZ ATION 02/28/2024 [facility] DATE CREATED AUTHOR AUTHOR'S ORGANIZ ATION 03/13/2024 [facility] DATE CREATED AUTHOR AUTHOR'S ORGANIZ ATION 07/30/2025 [facility] EPIC Care Teams (unrecognized [...] July 03, 2024 End: July 03, 2024 Professor/Nurse Anesthetist Relationship Specialty Start Date End Date Radha Calix PA [address] [place] [address] PCP - [facility] 05/14/24 Professor/Nurse Anesthetist Relationship Specialty Start Date End Date Radha Calix PA [address] [place] [address] PCP - [facility] 05/14/24 Professor/Nurse Anesthetist Relationship Specialty Start Date End Date Matt Sandra APRN-LOSS PREVENTION AGENT [address] [place] [address] PCP - General Family Medicine 10/16/19 Professor/Nurse Anesthetist Relationship Specialty Start Date End Date Matt Sandra, PUBLIC RELATIONS OFFICER-LOSS PREVENTION AGENT [address] [place] [address] PCP - General Family Medicine 10/16/19 Professor/Nurse Anesthetist Relationship Specialty Start Date End Date Matt Sandra PUBLIC RELATIONS OFFICER-LOSS PREVENTION AGENT [address] [place] [address] PCP - General Family Medicine 10/16/19 Professor/Nurse Anesthetist Relationship Specialty Start Date End Date Radha Calix PA PCP - [facility] [place] MELTER SUPERVISOR OXYGEN FURNACE 05/14/24 Professor/Nurse Anesthetist Relationship Specialty Start Date End Date Radha Calix PA PCP - [facility] MELTER SUPERVISOR OXYGEN FURNACE 05/14/24 Professor/Nurse Anesthetist Relationship Specialty Start Date End Date Radha Calix PA PCP - [facility] MELTER SUPERVISOR OXYGEN FURNACE 05/14/24 Professor/Nurse Anesthetist Relationship Specialty Start Date End Date Radha Calix PA PCP - [facility] MELTER SUPERVISOR OXYGEN FURNACE 05/14/24 Professor/Nurse Anesthetist Relationship Specialty Start Date End Date Radha Calix PA PCP - [facility] MELTER SUPERVISOR OXYGEN FURNACE 05/14/24 Professor/Nurse Anesthetist Relationship Specialty Start Date End Date Radha Calix PA PCP - [facility] MELTER SUPERVISOR OXYGEN FURNACE 05/14/24 Professor/Nurse Anesthetist Relationship Specialty Start Date End Date Radha Calix PA PCP - [facility] MELTER SUPERVISOR OXYGEN FURNACE 05/14/24 Professor/Nurse Anesthetist Relationship Specialty Start Date End Date Radha Calix PA PCP - [facility] MELTER SUPERVISOR OXYGEN FURNACE 05/14/24 Professor/Nurse Anesthetist Relationship Specialty Start Date End Date Radha Calix PA PCP - [facility] 05/14/24 Professor/Nurse Anesthetist Relationship Specialty Start Date End Date Radha Calix PA PCP - [facility] 05/14/24 Professor/Nurse Anesthetist Relationship Specialty Start Date End Date Radha Calix PA PCP - [facility] 05/14/24 Goals (unrecognized section and content) Goals [...] BE BASED ON THE PRIMARY CLINICAL RECORDS. [facility] [employer] provides no warranty or guarantee of the accuracy or completeness of information in this document.
--- NOTE | 2025-07-31 10:03 | US_ITS ---
[facility] [place] [id number] Patient Name: BRANDIE BRUNO MRN: [id number] date: 1995 Sex: F Assigned Patient Location: [facility] Current Patient Location: [facility] Accession/Order Number: [id number] Exam Date: 07/31/2025 10:05 Report Date: 07/31/2025 11:26 At the request of: NORM ALEGRE Procedure: US OB BPP w non-stress BIOPHYSICAL PROFILE: CLINICAL INFORMATION: Excessive growth Comparison: 07/23/2025 There is a single live intrauterine gestation in cephalic presentation. The reported gestational age is 36 weeks 3 days. The heart rate measures 161 beats per minute. FINDINGS: TONE: 1 or more episodes of activity extension and flexion of extremity or opening and closing of the hand [Y] 2/2 GROSS BODY MOVEMENTS: 3 or more discrete body or limb movements [Y] 2/2 BREATHING MOVEMENTS: 1 or more episodes of breathing lasting at least 30 seconds [Y] 2/2 BENNETT: A single deepest vertical pocket of amniotic fluid greater than 2 cm [Y] 2/2 BENNETT: 17.2 cm. This is in upper normal range. Total score: 8/8 US/ OB BPP w non-stress IMPRESSION: NORMAL BIOPHYSICAL PROFILE Impression dictated by: Audrey Kuo M.D. 07/31/2025 11:26 AM Dictation Location: [facility] Electronically authenticated by: [id number] Y Date: 07/31/2025 11:26
[2025-07-31 10:30] VITALS: BP 124/81; PULSE 99
== END 2025-07-31 11:00 | disposition home or self-care (01) ==
LOC: US 09:56 → FBC 09:58
PROVIDERS: PCP Nurse Practitioner; Visit Provider Nurse Practitioner Family
DX: O36.63X0 Maternal care for excessive fetal growth, third trimester, not applicable or unspecified (principal); Z3A.36 36 weeks gestation of pregnancy
CPT/HCPCS: 76818

== ENCOUNTER 2025-08-03 10:08 | Outpatient (OUT) | payer MEDICAID, SELFPAY ==
--- OUTSIDE RECORDS SUMMARY | 2025-08-03 10:11 | XMS_ITS | CCD ---
Author Organization [facility] Care Team Providers Care Metal Inspector Name Role Phone JOHN, DR TRAN Admitting [...] Primary Care Unavailable Radha Dickerson Unavailable Sandra SYSTEMS COORDINATOR-HARNESS FITTER, Matt J Primary Care [facility] Radha Dickerson Unavailable [phone] CHELSEA LOPEZ Attending Unavailable CHELSEA LOPEZ Attending [...] Cephalexin Drug Allergy 2 The [facility] Repository (20 sources) Cephalexin; Translations: [CEPHALEXIN] Drug [...] Facility US OB BPP W NON-STRESS on 07-31-2025 [place] [address] Ultrasound Report Signed Patient: TARA BRUNO MR#: [id number] : 1995 Acct:[id number] Age/Sex: 30 / F ADM Date: 07/31/25 Loc: [facility] 250-[address]: Jo Ann Patino Ordering Physician: Jo Ann Patino Date of Service: 07/31/25 Procedure(s): US OB BPP w non-stress Accession Number(s): [id number] cc: MATT SANDRA ; Jo Ann Patino [facility] [place] [id number] Patient Name: ATRA BRUNO MRN: [facility]:[id number] date: 1995 Sex: F Assigned Patient Location: [facility] Current Patient Location: [facility] Accession/Order Number: [id number] Exam Date: 07/31/2025 10:05 Report Date: 07/31/2025 11:26 At the request of: JO ANN PATINO Procedure: US OB BPP w non-stress BIOPHYSICAL PROFILE: CLINICAL INFORMATION: Excessive growth Comparison: 07/23/2025 There is a single live intrauterine gestation in cephalic presentation. The reported gestational age is 36 weeks 3 days. The heart rate measures 161 beats per minute. FINDINGS: TONE: 1 or [...] greater than 2 cm [Y] 2/2 BENNETT: 17.2 cm. This is in upper normal range. Total score: 8/8 US/US OB BPP w non-stress IMPRESSION: NORMAL BIOPHYSICAL PROFILE Impression dictated by: Audrey Kuo M.D. 07/31/2025 11:26 AM Dictation Location: [facility] Electronically authenticated by: [id number] Y Date: 07/31/2025 11:26 Dictated By: Audrey Kuo M.D. Signed By: 07/31/25 1129 DD/ 1126 TD/TT: Crowning Hammer Operator: [facility] Radiology, Radiologist, - 07/31/2025 [place] [address] Ultrasound Report Signed Patient: TARA BRUNO MR#: [id number] : 1995 Acct:[id number] Age/Sex: 30 / F ADM Date: 07/31/25 Loc: [facility] 250-[address]: Jo Ann Patino Ordering Physician: Jo Ann Patino Date of Service: 07/31/25 Procedure(s): US OB BPP w non-stress Accession Number(s): [id number] cc: MATT SANDRA Kristina [place] [address] Patient Name: TARA BRUNO MRN: [facility]:[id number] date: 1995 Sex: F Assigned Patient Location: [facility] Current Patient Location: [facility] Accession/Order Number: [id number] Exam Date: 07/31/2025 10:05 Report Date: 07/31/2025 11:26 At the request of: JO ANN PATINO Procedure: US OB BPP w non-stress BIOPHYSICAL PROFILE: CLINICAL INFORMATION: Excessive growth Comparison: 07/23/2025 There is a single live intrauterine gestation in cephalic presentation. The reported gestational age is 36 weeks 3 days. The heart rate measures 161 beats per minute. FINDINGS: TONE: 1 or [...] greater than 2 cm [Y] 2/2 BENNETT: 17.2 cm. This is in upper normal range. Total score: 8/8 US/US OB BPP w non-stress IMPRESSION: NORMAL BIOPHYSICAL PROFILE Impression dictated by: Audrey Kuo M.D. 07/31/2025 11:26 AM Dictation Location: [facility] Electronically authenticated by: [id number] Y Date: 07/31/2025 11:26 Dictated By: Audrey Kuo M.D. Signed By: 07/31/25 1129 DD/ 1126 TD/TT: Crowning Hammer Operator: [facility] [employer] Radiology Study observation (narrative) [facility] US OB BPP W NON-STRESS Ordered By: Radiologist Radiology on 07-31-2025 [facility] [employer] Work Phone: US OB FOLLOW UP TRANSABDOMIN AL APPROACHon 07-29-2025 US OB FOLLOW UP TRANSABDOMINAL APPROACH FINDINGS: [...] 3837 grams ( 8 pound, 7 ounces). IMPRESSION: 1. Single, live intrauterine , [...] of Delivery: 08/25/25 Gestational Age as of 07/10/2025: 33w3d Urinalysis macro (dipstick) panel (U)Ordered By: Hemalatha Fatima on 07-29-2025 Bilirubin, UA Negative Negative - 4(70) +++ mg/dL [facility] Work Phone: Blood, UA Positive Negative - 50 Abhi/mcL [facility] Work Phone: Clarity, UA Clear [facility] Work Phone: Color, UA Yellow [facility] Work Phone: Glucose, UA Negative Negative - 1999(110) ++++ mg/dL [facility] Work Phone: Interpretation and review of laboratory results Normal [facility] Work Phone: Ketones, UA Negative Negative - 160(16) ++++ mg/dL [facility] Work Phone: Leukocytes, UA Negative Negative - 500+++ Pura/mcL [facility] Work Phone: Nitrite, UA Positive Negative - Positive [facility] Work Phone: pH, UA 1 5 - 9 [facility] Work Phone: Protein, UA Negative Negative - 1999(20) ++++ mg/dL [facility] Work Phone: Spec Grav, UA 6.5 1 - 1.03 [facility] Work Phone: Urobilinogen, UA 1.0 0.2 - 12 mg/dL [facility] Work Phone: [facility] Work Phone: US OB BPP W NON-STRESS on 07-24-[address] [address] Ultrasound Report Signed Patient: TARA BRUNO MR#: [id number] : 1995 Acct:[id number] Age/Sex: 30 / F ADM Date: 07/24/25 Loc: US Attending Dr: Jo Ann Patino Ordering Physician: Jo Ann Patino Date of Service: 07/24/25 Procedure(s): US OB BPP w non-stress Accession Number(s): [id number] cc: MATT SANDRA Kristina [place] [address] Patient Name: TARA BRUNO MRN: [facility]:[id number] date: 1995 Sex: F Assigned Patient Location: [facility] Current Patient Location: Accession/Order Number: [id number] Exam Date: 07/24/2025 10:02 Report Date: 07/24/2025 11:09 At the request of: JO ANN PATINO Procedure: US OB BPP w non-stress BIOPHYSICAL PROFILE: CLINICAL INFORMATION: Excessive growth COMPARISON: 07/17/2025 There is a single live intrauterine gestation in cephalic presentation. The reported gestational age is 35 weeks 3 days. The heart rate [id number] beats per minute. FINDINGS: TONE: 1 or [...] Kuo M.D. 07/24/2025 11:09 AM Dictation Location: [place] [address] Electronically authenticated by: [id number] Y Date: 07/24/2025 11:09 Dictated By: Audrey Kuo M.D. Signed By: 07/24/25 1111 DD/ 1109 TD/TT: Crowning Hammer Operator: [facility] Radiology, Radiologist, - 07/24/2025 [place] [address] Ultrasound Report Signed Patient: TARA BRUNO MR#: [id number] : 1995 Acct:[id number] Age/Sex: 30 / F ADM Date: 07/24/25 Loc: US Attending Dr: Jo Ann Patino Ordering Physician: Jo Ann Patino Date of Service: 07/24/25 Procedure(s): US OB BPP w non-stress Accession Number(s): [id number] cc: MATT SANDRA ; Jo Ann Patino [place] [address] Patient Name: TARA BRUNO MRN: [id number] date: 1995 Sex: F Assigned Patient Location: [facility] Current Patient Location: Accession/Order Number: [id number] Exam Date: 07/24/2025 10:02 Report Date: 07/24/2025 11:09 At the request of: JO ANN PATINO Procedure: US OB BPP w non-stress BIOPHYSICAL PROFILE: CLINICAL INFORMATION: Excessive growth COMPARISON: 07/17/2025 There is a single live intrauterine gestation in cephalic presentation. The reported gestational age is 35 weeks 3 days. The heart rate [id number] beats per minute. FINDINGS: TONE: 1 or [...] is in upper normal range. Total score: 8/ US/US OB BPP w non-stress IMPRESSION: NORMAL BIOPHYSICAL PROFILE Impression dictated by: Audrey Kuo M.D. 07/24/2025 11:09 AM Dictation Location: [place] [address] Electronically authenticated by: [id number] Y Date: 07/24/2025 11:09 Dictated By: Audrey Kuo M.D. Signed By: 07/24/25 1111 DD/ 1109 TD/TT: Crowning Hammer Operator: [facility] Radiology Study observation (narrative) [facility] US OB BPP W NON-STRESS Ordered By: Radiologist Radiology on 07-24-2025 [facility] Work Phone: US OB BPP W NON-STRESS on 07-17-2025 [place] [address] Ultrasound Report Signed Patient: TARA BRUNO MR#: [id number] : 1995 Acct:[id number] Age/Sex: 30 / F ADM Date: 07/17/25 Loc: [facility] 251-[address]: Jo Ann Patino Ordering Physician: Jo Ann Patino Date of Service: 07/17/25 Procedure(s): US OB BPP w non-stress Accession Number(s): [id number] cc: MATT SANDRA Kristina [place] [id number] Patient Name: TARA BRUNO MRN: [id number]:[id number] date: 1995 Sex: F Assigned Patient Location: [facility] Current Patient Location: [facility] Accession/Order Number: [id number] Exam Date: 07/17/2025 15:03 Report Date: 07/17/2025 15:34 At the request of: JO ANN PATINO Procedure: US OB BPP w non-stress Biophysical profile. Reason for exam: Excessive growth COMPARISON: None TECHNIQUE: Transabdominal imaging of the gravid uterus was obtained. FINDINGS: The weights and measures sealer reports a BPP of 8 out of 8. BENNETT is normal at 15.6 cm. heart rate 145 bpm. US/US OB BPP w non-stress IMPRESSION: BPP 8 out of 8. Impression dictated by: Aaron Acevedo Jr., D.O. 07/17/2025 3:34 PM Dictation Location: [place] [address] Electronically authenticated by: [id number] Y Date: 07/17/2025 15:34 Dictated By: Aaron Acevedo M.D. Signed By: 07/17/25 1537 DD/ 33 TD/TT: Crowning Hammer Operator: [facility] Radiology, Radiologist, - 07/17/2025 [place] [address] Ultrasound Report Signed Patient: TARA BRUNO MR#: [id number] : 1995 Acct:[id number] Age/Sex: 30 / F ADM Date: 07/17/25 Loc: [facility] 251-[address]: Jo Ann Patino Ordering Physician: Jo Ann Patino Date of Service: 07/17/25 Procedure(s): US OB BPP w non-stress Accession Number(s): [id number] cc: MATT SANDRA Kristina [place] [address] Patient Name: TARA BRUNO MRN: [facility]:[id number] date: 1995 Sex: F Assigned Patient Location: [facility] Current Patient Location: [facility] Accession/Order Number: [id number] Exam Date: 07/17/2025 15:03 Report Date: 07/17/2025 15:34 At the request of: JO ANN PATINO Procedure: US OB BPP w non-stress Biophysical profile. Reason for exam: Excessive growth COMPARISON: None TECHNIQUE: Transabdominal imaging of the gravid uterus was obtained. FINDINGS: The weights and measures sealer reports a BPP of 8 out of 8. BENNETT is normal at 15.6 cm. heart rate 145 bpm. US/US OB BPP w non-stress IMPRESSION: BPP 8 out of 8. Impression dictated by: Aaron Acevedo Jr., D.O. 07/17/2025 3:34 PM Dictation Location: [place] [address] Electronically authenticated by: [id number] Y Date: 07/17/2025 15:34 Dictated By: Aaron Acevedo M.D. Signed By: 07/17/25 1537 DD/ 1534 TD/TT: Crowning Hammer Operator: [facility] Radiology Study observation (narrative) [facility] US OB BPP W NON-STRESS Ordered By: Radiologist Radiology on 07-17-2025 [facility] Work Phone: US [...] UA Negative Negative - 4(70) +++ mg/dL [facility] Blood, UA Positive Negative - 50 Abhi/mcL [facility] Clarity, UA Clear [facility] Color, UA Yellow [facility] Glucose, UA Negative Negative - 2000(110) ++++ mg/dL [facility] Interpretation and review of laboratory results Abnormal [facility] Ketones, UA Negative Negative - 160(16) ++++ mg/dL [facility] Leukocytes, UA Negative Negative - 500+++ Pura/mcL [facility] Nitrite, UA Negative Negative - Positive [facility] pH, UA 7 5 - 9 [facility] Protein, UA Negative Negative - 2000(20) ++++ mg/dL [facility] Spec Grav, UA 1.005 1 - 1.03 [facility] Urobilinogen, UA 1.0 0.2 - 12 mg/dL [facility] Urinalysis macro (dipstick) panel (U)on 06-26-2025 Bilirubin, UA Negative Negative - 4(70) +++ mg/dL [facility] Blood, UA Positive Negative - 50 Abhi/mcL [facility] Comment on above: Trace Clarity, UA Clear [facility] Color, UA Yellow [facility] Glucose, UA Negative Negative - 2000(110) ++++ mg/dL [facility] Interpretation and review of laboratory results Abnormal [facility] Ketones, UA Positive Negative - 160(16) ++++ mg/dL [facility] Comment on above: Trace Leukocytes, UA Negative Negative - 500+++ Pura/mcL [facility] Nitrite, UA Negative Negative - Positive [facility] pH, UA 6 5 - 9 [facility] Protein, UA Trace Negative - 2000(20) ++++ mg/dL [facility] Spec Grav, UA 1.02 1 - 1.03 [facility] Urobilinogen, UA 0.2 0.2 - 12 mg/dL [facility] US OB FOLLOW UP TRANSABDOMIN AL APPROACHon [...] II, MD, PHD at 12-Jun-2025 07:34:42 AM [facility] Normal Not Available Comment on above: Order Comment: US OB SCAN FOR GROWTH Estimated Date of Delivery: 08/25/25 Gestational Age as of 05/29/2025: 27w3d Urinalysis macro (dipstick) panel (U)on 06-11-2025 Bilirubin, UA Negative Negative - 4(70) +++ mg/dL [facility] Blood, UA Positive Negative - 50 Abhi/mcL [facility] Comment on above: Trace Clarity, UA Clear [facility] Color, UA Yellow [facility] Glucose, UA Negative Negative - 1999(110) ++++ mg/dL [facility] Interpretation and review of laboratory results Abnormal [facility] Ketones, UA Positive Negative - 160(16) ++++ mg/dL [facility] Comment on above: Trace Leukocytes, UA Negative Negative - 500+++ Pura/mcL [facility] Nitrite, UA Negative Negative - Positive [facility] pH, UA 6 5 - 9 [facility] Protein, UA Negative Negative - 2000(20) ++++ mg/dL [facility] Spec Grav, UA 1.015 1 - 1.03 [facility] Urobilinogen, UA 0.2 0.2 - 12 mg/dL [facility] ALL CBC WITH AUTO DIFFon BASOPHILS ABSOLUTE AUTO 0 N [facility] Basophils/100 WBC (Bld) 0.2 % 0.2 - 2.0 % [facility] Eosinophils/100 WBC (Bld) 0.9 % 0.9 - 7.0 % [facility] Erythrocyte distribution width (RBC) [Ratio] 13 % 11.0 - 15.0 % [facility] Hematocrit (Bld) [Volume fraction] 30.1 % Low 36.0 - 48.0 % [facility] Hemoglobin (Bld) [Mass/Vol] 10 g/dL Low 12.0 - 16.0 g/dL [facility] IMMATURE GRANULOCYTES ABS AUTO 0.17 High [facility] Immature granulocytes/100 WBC (Bld) 1.7 % High 0.0 - 0.5 % [facility] Interpretation and review of laboratory results Abnormal [facility] LYMPHOCYTES ABSOLUTE AUTO 1.5 [facility] Lymphocytes/100 WBC (Bld) 15.2 % Low 20.5 - 60.0 % [facility] MCH (RBC) [Entitic mass] 29.2 pg 26.7 - 34.0 pg [facility] MCHC (RBC) [Mass/Vol] 33.2 g/dL 29.9 - 35.2 g/dL [facility] MCV (RBC) [Entitic vol] 88 fL 81.0 - 99.0 fL [facility] MONOCYTES ABSOLUTE AUTO 0.5 N [facility] Monocytes/100 WBC (Bld) 5.4 % 1.7 - 12.0 % [facility] NEUTROPHILS ABSOLUTE AUTO 7.5 High [facility] Neutrophils/100 WBC (Bld) 76.6 % High 43.0 - 75.0 % [facility] Platelet mean volume (Bld) [Entitic vol] 9.1 fL Low 9.5 - 13.5 fL [facility] TBH EO # 0.1 [facility] TB PLT 176 [facility] RBC 3.42 Low [facility] WBC 9.7 [facility] Urinalysis macro (dipstick) panel (U)on 05-29-2025 Bilirubin, UA Negative Negative - 4(70) +++ mg/dL [facility] Blood, UA Positive Negative - 50 Abhi/mcL [facility] Comment on above: trace Clarity, UA Clear [facility] Color, UA Yellow [facility] Glucose, UA Positive Negative - 2000(110) ++++ mg/dL [facility] Comment on above: 100 Interpretation and review of laboratory results Abnormal [facility] Ketones, UA Negative Negative - 160(16) ++++ mg/dL [facility] Leukocytes, UA Negative Negative - 500+++ Pura/mcL [facility] Nitrite, UA Negative Negative - Positive [facility] pH, UA 6 5 - 9 [facility] Protein, UA Negative Negative - 2000(20) ++++ mg/dL [facility] Spec Grav, UA 1.01 1 - 1.03 [facility] Urobilinogen, UA 0.2 0.2 - 12 mg/dL [facility] Urinalysis macro (dipstick) panel (U)on 05-02-2025 Bilirubin, UA Negative Negative - 4(70) +++ mg/dL [facility] Blood, UA Positive Negative - 50 Abhi/mcL [facility] Comment on above: small Clarity, UA Clear [facility] Color, UA Yellow [facility] Glucose, UA Positive Negative - 1999(110) ++++ mg/dL [facility] Comment on above: 100mg/dL Interpretation and review of laboratory results Abnormal [facility] Ketones, UA Negative Negative - 160(16) ++++ mg/dL [facility] Leukocytes, UA Negative Negative - 500+++ Pura/mcL [facility] Nitrite, UA Negative Negative - Positive [facility] pH, UA 6 5 - 9 [facility] Protein, UA Positive Negative - 1999(20) ++++ mg/dL [facility] Comment on above: 30mg/dL Spec Grav, UA 1.03 1 - 1.03 [facility] Urobilinogen, UA 0.2 0.2 - 12 mg/dL [facility] No Panel InformationOrdered By: Radiologist Radiology on 04-10-2025 [facility] Work Phone: No Panel Informationon 04-10 Radiology Study observation (narrative) [facility] US OB ANATOMYon 04-10-2025 [place] [address] Ultrasound Report Signed Patient: TARA BRUNO MR#: [id number] : 1995 Acct:[id number] Age/Sex: 30 / F ADM Date: 04/10/25 Loc: US Attending Dr: Chelsea Lopez D.O. Ordering Physician: Chelsea Lopez D.O. Date of Service: 04/10/25 Procedure(s): US OB anatomy Accession Number(s): [id number] cc: MATT SANDRA ; Chelsea Lopez D.O. [place] [id number] Patient Name: TARA BRUNO MRN: [facility]:[id number] date: 1995 Sex: F Assigned Patient Location: Current Patient Location: Accession/Order Number: [id number] Exam Date: 04/10/2025 16:00 Report Date: 04/10/2025 [...] Wynn M.D. 04/10/2025 4:04 PM Dictation Location: [place] [address] Electronically authenticated by: [id number] Y Date: 04/10/2025 16:04 Dictated By: Ashish Wynn D.O. Signed By: 04/10/25 1607 DD/ 1604 TD/TT: Crowning Hammer Operator: [facility] Radiology, Radiologist, - 04/10/2025 [place] [address] Ultrasound Report Signed Patient: TARA BRUNO MR#: [id number] : 1995 Acct:[id number] Age/Sex: 30 / F ADM Date: 04/10/25 Loc: US Attending Dr: Chelsea Lopez D.O. Ordering Physician: Chelsea Lopez D.O. Date of Service: 04/10/25 Procedure(s): US OB anatomy Accession Number(s): [id number] cc: MATT SANDRA ; Chelsea Lopez D.O. [place] [id number] Patient Name: TARA BRUNO MRN: [facility]:[id number] date: 1995 Sex: F Assigned Patient Location: US Current Patient Location: US Accession/Order Number: [id number] Exam Date: 04/10/2025 16:00 Report Date: 04/10/2025 [...] Wynn M.D. 04/10/2025 4:04 PM Dictation Location: [employer] Electronically authenticated by: [id number] Y Date: 04/10/2025 16:04 Dictated By: Ashish Wynn D.O. Signed By: 04/10/25 1607 DD/ 1604 TD/TT: Crowning Hammer Operator: [facility] US OB CERVICAL LENGTHon 03-15 [place] [address] Ultrasound Report Signed Patient: TARA BRUNO MR#: [id number] : 1995 Acct:[id number] Age/Sex: 30 / F ADM Date: 04/10/25 Loc: US Attending Dr: Chelsea Lopez D.O. Ordering Physician: Chelsea Loepz D.O. Date of Service: 04/10/25 Procedure(s): US OB cervical length Accession Number(s): [id number] cc: MATT SANDRA ; Chelsea Lopez D.O. [place] [id number] Patient Name: TARA BRUNO MRN: [facility]:[id number] date: 1995 Sex: F Assigned Patient Location: US Current Patient Location: US Accession/Order Number: [id number] Exam Date: 04/10/2025 16:04 Report Date: 04/10/2025 16:04 At the request of: CHELSEA LOPEZ DO Procedure: US OB cervical length Obstetrical ultrasound to assess for cervical length Cervical length 3.9 cm. Os closed. US/US OB cervical length IMPRESSION: Cervical length 3.9 cm. Impression dictated by: Ashish Wynn M.D. 04/10/2025 4:04 PM Dictation Location: [employer] Electronically authenticated by: [id number] Y Date: 04/10/2025 16:04 Dictated By: Ashish Wynn D.O. Signed By: 04/10/251606 DD/ 03 TD/TT: Crowning Hammer Operator: [facility] Radiology, Radiologist, - 04/10/2025 [place] [address] Ultrasound Report Signed Patient: TARA BRUNO MR#: [id number] : 1995 Acct:[id number] Age/Sex: 30 / F ADM Date: 04/10/25 Loc: US Attending Dr: Chelsea Lopez D.O. Ordering Physician: Chelsea Lopez D.O. Date of Service: 04/10/25 Procedure(s): US OB cervical length Accession Number(s): [id number] cc: MATT SANDRA ; Chelsea Lopez D.O. The [place] [id number] Patient Name: TARA BRUNO MRN: [facility]:[id number] date: 1995 Sex: F Assigned Patient Location: US Current Patient Location: US Accession/Order Number: [id number] Exam Date: 04/10/2025 16:04 Report Date: 04/10/2025 16:04 At the request of: CHELSEA LOPEZ DO Procedure: US OB cervical length Obstetrical ultrasound to assess for cervical length Cervical length 3.9 cm. Os closed. US/US OB cervical length IMPRESSION: Cervical length 3.9 cm. Impression dictated by: Ashish Wynn M.D. 04/10/2025 4:04 PM Dictation Location: [place] [address] Electronically authenticated by: [id number] Y Date: 04/10/2025 16:04 Dictated By: Ashish Wynn D.O. Signed By: 04/10/251606 DD/ 03 TD/TT: Crowning Hammer Operator: [facility] RECURRENT VAGINITIS (HTRX)on 04-04-2025 ATOPOBIUM VAGINAE 27.45 Abnormal [facility] ATOPOBIUM VAGINAE Detected Abnormal [facility] BVAB 2,3 (BACTERIAL VAGINOSIS ASSOCIATED BACTERIA 2, 3); MOBILUNCUS SPP 17.543 Abnormal [facility] BVAB 2,3 (BACTERIAL VAGINOSIS ASSOCIATED BACTERIA 2, 3); MOBILUNCUS SPP Detected Abnormal [facility] AYSHA ALBICANS, PARAPSILOSIS, TROPICALIS 0 [facility] AYSHA ALBICANS, PARAPSILOSIS, TROPICALIS Not detected [facility] AYSHA GLABRATA 0 [facility] AYSHA GLABRATA Not [facility] KRUSEI 16.514 Abnormal [facility] AYSHA KRUSEI Detected Abnormal [facility] CHLAMYDIA TRACHOMATIS 0 [facility] CHLAMYDIA TRACHOMATIS Not detected N [facility] ERMB, C; MEFA 22.692 Abnormal [facility] ERMB, C; MEFA Detected Abnormal [facility] GARDNERELLA VAGINALIS 26.666 Abnormal [facility] GARDNERELLA VAGINALIS Detected Abnormal [facility] Interpretation and review of laboratory results Abnormal [facility] MEGASPHAERA (TYPES 1, 2) 21.837 Abnormal [facility] MEGASPHAERA (TYPES 1, 2) Detected Abnormal [facility] MYCOPLASMA GENITALIUM 0 [facility] MYCOPLASMA GENITALIUM Not detected N S [facility] NEISSERIA GONORRHOEAE 0 [facility] NEISSERIA GONORRHOEAE Not detected N [facility] TET B, TET M 20.933 Abnormal [facility] TET B, TET M Detected Abnormal [facility] TRICHOMONAS VAGINALIS 0 [facility] S [facility] TRICHOMONAS VAGINALIS Not detected N Formerly named [facility] Urinalysis macro (dipstick) panel (U)on 04-03-2025 Bilirubin, UA Negative Negative - 4(70) +++ mg/dL [facility] Blood, UA Positive Negative - 50 Abhi/mcL [facility] Comment on above: trace Clarity, UA Clear [facility] Color, UA Yellow [facility] Glucose, UA Positive Negative - 1999(110) ++++ mg/dL [facility] Comment on above: 100 Interpretation and review of laboratory results Abnormal [facility] Ketones, UA Negative Negative - 160(16) ++++ mg/dL [facility] Leukocytes, UA Positive Negative - 500+++ Pura/mcL [facility] Comment on above: small Nitrite, UA Negative Negative - Positive [facility] pH, UA 6 5 - 9 [facility] Protein, UA Trace Negative - 2000(20) ++++ mg/dL [facility] Spec Grav, UA 1.02 1 - 1.03 [facility] Urobilinogen, UA 0.2 0.2 - 12 mg/dL [facility] Urinalysis macro (dipstick) panel (U)on 02-26-2025 Bilirubin, UA Negative Negative - 4(70) +++ mg/dL [facility] Blood, UA Negative Negative - 50 Abhi/mcL [facility] Clarity, UA Clear [facility] Color, UA Yellow [facility] Glucose, UA Negative Negative - 2000(110) ++++ mg/dL [facility] Interpretation and review of laboratory results Normal [facility] Ketones, UA Negative Negative - 160(16) ++++ mg/dL [facility] Leukocytes, UA Negative Negative - 500+++ Pura/mcL [facility] Nitrite, UA Negative Negative - Positive [facility] pH, UA 6 5 - 9 [facility] Protein, UA Negative Negative - 1999(20) ++++ mg/dL [facility] Spec Grav, UA 1.02 1 - 1.03 [facility] Urobilinogen, UA 0.2 0.2 - 12 mg/dL [facility] US OB TRANSVAGINALon 025 US OB TRANSVAGINAL [...] II, MD, PHD at 27-Jan-2025 07:45:14 AM [facility] Normal Not Available Comment on above: Order Comment: US OB TRANSVAGINAL No LMP recorded. IGP,APTIMA HPV,AGE GDLNon AGE GDLN ACOG TESTING Note . [facility] Comment on above: TESTS RESULT FLAG UN ITS REF RANGE LAB Clinician Provided Cytology Information Source.............Cervix;Endocervix No. of containers..01 ThinPrep Vial Age Algo ACOG Violetta... - 01 FLAG LEGEND: L-Low Normal,H-High Normal,LL-Alert Low,HH-Alert High <-Panic Low,>-Panic High,A-Abnormal,AA-Critical Abnormal Performed at: 01 =[facility] [address] Adriana Pfeiffer MD, IGP, RFX APTIMA HPV ASCU Note . [facility] Comment on above: TESTS RESULT FLAG UN ITS REF RANGE LAB DIAGNOSIS: 02 NEGATIVE FOR INTRAEPITHELIAL LESION OR MALIGNANCY. Specimen adequacy: 02 Satisfactory for evaluation. Endocervical and/or squamous metaplastic cells (endocervical component) are present. Performed by: 02 Erin Barbosa Supervisor Drilling And Shooting ([facility]) . 02 Note: Note 02 The [...] <-Panic Low,>-Panic High,A-Abnormal,AA-Critical Abnormal Performed at: [address] [place] [address] Adriana Pfeiffer MD, Performed at: = - [facility] [id number] Electric Motor Assembler: Adriana Pfeiffer MD, Phone: [phone] Performed at: [address] [id number] Electric Motor Assembler: Adriana Pfeiffer MD, Phone: [phone] [facility] CERVIX ENDOCERVIX [facility] POCT , urineon - Beta HCG ( test) Ql (U) Negative [facility] POCT Influenza A/Influenza B /SARS-COV-2 VeritorOrdered By: Ellie Ruvalcaba on 02-08-2024 External Poct Influenza A Antigen Negative [facility] External Poct Influenza B Antigen Negative [facility] SARS-CoV-2 (COVID-19) Ag IA.rapid Ql (Resp) Negative [facility] POCT rapid strep Aon 024 Internal Protection Specialist Check Completed and Passed Yes [facility] Interpretation and review of laboratory results Normal [facility] S. pyogenes Ag IA Ql (Unsp spec) Negative Negative [facility] US PELVIS AND TRANSVAGon US PELVIS AND [...] by: SAHARA APODACA Date: 2022-12-01 08:05 Normal [facility] US PELVIS TRANSVAGon 022 US [...] by: YAMEL GOMEZ Date: 2022-02-10 14:27 Normal [facility] Vital Signs Date Time Vital Sign Value Performing Clinician Facility 07-29-2025 11:39-0400 Body mass index (BMI) [Ratio] 35.1 kg/m2 Chelsea John DO Work Phone: [facility] 07-29-2025 11:39-0400 Body weight 89.87 kg Chelsea John DO Work Phone: [facility] 07-29-2025 11:39-0400 Diastolic blood pressure 68 mm[Hg] Chelsea John DO Work Phone: [facility] 07-29-2025 11:39-0400 Systolic blood pressure 110 mm[Hg] Chelsea John DO Work Phone: [facility] 07-10-2025 14:13-0400 Body mass index (BMI) [Ratio] 34.9 kg/m2 Chelsea John DO Work Phone: [facility] 07-10-2025 14:13-0400 Body weight 89.36 kg Chelsea John DO Work Phone: [facility] 07-10-2025 14:13-0400 Diastolic blood pressure 74 mm[Hg] Chelsea John DO Work Phone: [facility] 07-10-2025 14:13-0400 Systolic blood pressure 122 mm[Hg] Chelsea John DO Work Phone: [facility] 06-26-2025 13:34-0400 Body mass index (BMI) [Ratio] 34.28 kg/m2 Josi Yulissa PA Work Phone: [facility] 06-26-2025 13:34-0400 Body weight 87.77 kg Josi Yulissa PA Work Phone: [facility] 06-26-2025 13:34-0400 Diastolic blood pressure 60 mm[Hg] Josi Maynard PA Work Phone: [facility] 06-26-2025 13:34-0400 Systolic blood pressure 116 mm[Hg] Josi Maynard PA Work Phone: [facility] 06-11-2025 14:47-0400 Body mass index (BMI) [Ratio] 34.06 kg/m2 Chelsea John DO Work Phone: [facility] 06-11-2025 14:47-0400 Body weight 87.2 kg Chelsea John DO Work Phone: [facility] 06-11-2025 14:47-0400 Diastolic blood pressure 68 mm[Hg] Chelsea John DO Work Phone: [facility] 06-11-2025 14:47-0400 Systolic blood pressure 122 mm[Hg] Chelsea Jonh DO Work Phone: [facility] 05-29-2025 13:39-0400 Body mass index (BMI) [Ratio] 33.66 kg/m2 Josi Maynard PA Work Phone: [facility] 05-29-2025 13:39-0400 Body weight 86.18 kg Josi Maynard PA Work Phone: [facility] 05-29-2025 13:39-0400 Diastolic blood pressure 70 mm[Hg] Josi Maynard PA Work Phone: [facility] 05-29-2025 13:39-0400 Systolic blood pressure 110 mm[Hg] Josi Yulissa PA Work Phone: [facility] 05-02-2025 09:09-0400 Body mass index (BMI) [Ratio] 32.42 kg/m2 Chelsea John DO Work Phone: [facility] 05-02-2025 09:09-0400 Body weight 83.01 kg Chelsea John DO Work Phone: [facility] 05-02-2025 09:09-0400 Diastolic blood pressure 64 mm[Hg] Chelsea John DO Work Phone: [facility] 05-02-2025 09:09-0400 Systolic blood pressure 102 mm[Hg] Chelsea John DO Work Phone: [facility] 04-03-2025 09:41-0400 Body mass index (BMI) [Ratio] 31 kg/m2 Josi Maynard PA Work Phone: [facility] 04-03-2025 09:41-0400 Body weight 79.38 kg Josi Yulissa PA Work Phone: [facility] 04-03-2025 09:41-0400 Diastolic blood pressure 72 mm[Hg] Josi Maynard PA Work Phone: [facility] 04-03-2025 09:41-0400 Systolic blood pressure 116 mm[Hg] Josi Yulissa PA Work Phone: [facility] 02-26-2025 09:50-0400 Body mass index (BMI) [Ratio] 29.94 kg/m2 Chelsea John DO Work Phone: [facility] 02-26-2025 09:50-0400 Body weight 76.66 kg Chelsea John DO Work Phone: [facility] 02-26-2025 09:50-0400 Diastolic blood pressure 76 mm[Hg] Chelsea John DO Work Phone: [facility] 02-26-2025 09:50-0400 Systolic blood pressure 110 mm[Hg] Chelsea John DO Work Phone: [facility] 12-11-2024 13:26-0500 Body mass index (BMI) [Ratio] 29.05 kg/m2 Chelsea John DO Work Phone: [facility] 12-11-2024 13:26-0500 Body weight 74.39 kg Chelsea John DO Work Phone: [facility] 12-11-2024 13:26-0500 Diastolic blood pressure 68 mm[Hg] Chelsea John DO Work Phone: [facility] 12-11-2024 13:26-0500 Systolic blood pressure 114 mm[Hg] Chelsea John DO Work Phone: [facility] 07-03-2024 15:11-0400 Body height 157.48 cm [facility] 07-03-2024 15:11-0400 Body mass index (BMI) [Ratio] 29.2 kg/m2 [facility] 07-03-2024 [id number] Body weight 72.57 kg [facility] 03-12-2024 11:21-0400 Body height 157.5 cm Matt Sandraloreta ALVAREZ-HARNESS FITTER Work Phone: [facility] 03-12-2024 11:21-0400 Body mass index (BMI) [Ratio] 28.55 kg/m2 Matt Sandraloreta ALVAREZ-HARNESS FITTER Work Phone: [facility] 03-12-2024 11:21-0400 Body temperature 98.1 [degF] Matt Sandra SYSTEMS COORDINATOR-HARNESS FITTER Work Phone: [facility] 03-12-2024 11:21-0400 Body weight 70.81 kg Matt Sandra SYSTEMS COORDINATOR-HARNESS FITTER Work Phone: [facility] [employer] [facility] 03-12-2024 11:21-0400 Diastolic blood pressure 68 mm[Hg] Matt Sandra SYSTEMS COORDINATOR-HARNESS FITTER Work Phone: [facility] 03-12-2024 11:21-0400 Heart rate 79 /min Matt Sandraloreta ALVAREZ-HARNESS FITTER Work Phone: [facility] 03-12-2024 11:21-0400 Respiratory rate 20 /min Matt Sandra APRN-HARNESS FITTER Work Phone: [facility] 03-12-2024 11:21-0400 SaO2% (BldA) [Mass fraction] 100 % Matt Sandra SYSTEMS COORDINATOR-HARNESS FITTER Work Phone: [facility] 03-12-2024 11:21-0400 Systolic blood pressure 110 mm[Hg] Matt Sandra SYSTEMS COORDINATOR-HARNESS FITTER Work Phone: [facility] 02-08-2024 11:53-0400 Body height 157.5 cm Cuco Ceron SYSTEMS COORDINATOR-HARNESS FITTER Work Phone: [facility] 02-08-2024 11:53-0400 Body mass index (BMI) [Ratio] 28.9 kg/m2 Cuco Ceron SYSTEMS COORDINATOR-HARNESS FITTER Work Phone: [facility] 02-08-2024 11:53-0400 Body temperature 98.2 [degF] Cuco Ceron SYSTEMS COORDINATOR-HARNESS FITTER Work Phone: [facility] 02-08-2024 11:53-0400 Body weight 71.67 kg Cuco Ceron SYSTEMS COORDINATOR-HARNESS FITTER Work Phone: [facility] 02-08-2024 11:53-0400 Diastolic blood pressure 68 mm[Hg] Cuco Ceron SYSTEMS COORDINATOR-HARNESS FITTER Work Phone: [facility] 02-08-2024 11:53-0400 Heart rate 97 /min Cucobradley Ceron SYSTEMS COORDINATOR-HARNESS FITTER Work Phone: [facility] 02-08-2024 11:53-0400 Respiratory rate 18 /min Cuco Ceron SYSTEMS COORDINATOR-HARNESS FITTER Work Phone: [facility] 02-08-2024 11:53-0400 SaO2% (BldA) [Mass fraction] 97 % Cucobradley Ceron SYSTEMS COORDINATOR-HARNESS FITTER Work Phone: [facility] 02-08-2024 11:53-0400 Systolic blood pressure 112 mm[Hg] Cuco Ceron APRN-HARNESS FITTER Work Phone: [facility] [employer] 01-03-2024 10:16-0500 Body height 157.5 cm Matt Sandra APRN-HARNESS FITTER [facility] 01-03-2024 10:16-0500 Body mass index (BMI) [Ratio] 29.23 kg/m2 Matt Sandra APRN-HARNESS FITTER Work Phone: [facility] [employer] 01-03-2024 10:16-0500 Body temperature 97.3 [degF] Matt Sandra APRN-HARNESS FITTER Work Phone: [facility] [employer] 01-03-2024 10:16-0500 Body weight 72.48 kg Matt Sandra APRN-HARNESS FITTER Work Phone: [facility] [employer] 01-03-2024 10:16-0500 Diastolic blood pressure 58 mm[Hg] Matt Sandra APRN-HARNESS FITTER Work Phone: [facility] [employer] 01-03-2024 10:16-0500 Heart rate 72 /min Matt Sandra APRN-HARNESS FITTER Work Phone: [facility] [employer] 01-03-2024 10:16-0500 SaO2% (BldA) [Mass fraction] 99 % Matt Sandra APRN-HARNESS FITTER Work Phone: [facility] [employer] 01-03-2024 10:16-0500 Systolic blood pressure 102 mm[Hg] Matt Sandra APRN-HARNESS FITTER Work Phone: [facility] Encounters Encounter Date Encounter Type Care Provider Facility Start: 07-31-2025 End: 07-31-2025 Clinisync Result Encounter Jo Ann Patino NP Work Phone: [facility] Unsolicited Start: 07-31-2025 End: 07-31-2025 Clinisync Result Encounter Jo Ann Patino ROLL COVERER Work Phone: [facility] Unsolicited Start: 07-29-2025 End: 07-29-2025 Office outpatient visit 15 minutes Chelsea John DO Work Phone: [facility] Comment on above: Third trimester preg alejandro ([facility]); 36 weeks gestation of ([facility]) Start: 07-29-2025 End: 07-29-2025 ambulatory CHELSEA JOHN Not Available Start: 07-24-2025 End: 07-24-2025 Clinisync Result Encounter Jo Ann Scanlonerly ROLL COVERER Work Phone: [facility] Unsolicited Start: 07-24-2025 End: 07-24-2025 Clinisync Result Encounter Jo Ann Carey ROLL COVERER Work Phone: [facility] Unsolicited Start: 07-17-2025 End: 07-17-2025 Clinisync Result Encounter Jo Ann Carey ROLL COVERER Work Phone: [facility] Unsolicited Start: 07-17-2025 End: 07-17-2025 Clinisync Result Encounter Jo Ann Scanlonerly ROLL COVERER Work Phone: [facility] Unsolicited Start: 07-10-2025 End: 07-10-2025 Office outpatient visit 15 minutes Chelsea John DO Work Phone: [facility] Comment on above: Excessive grow th affecting management of in third trimester, single or unspecified fetus ([facility]) (Primary Dx); Third trimester ([facility]); 33 weeks gestation of ([facility]); Hematuria, unspecified type Start: 07-10-2025 End: 07-10-2025 ambulatory CHELSEA JOHN Not Available Start: 06-26-2025 End: 06-26-2025 Bamboo flowsheet Josi HERNANDEZ Work Phone: [facility] Start: 06-26-2025 End: 06-26-2025 Bamboo flowsheet Josi HERNANDEZ Work Phone: [facility] Start: 06-26-2025 End: 06-26-2025 Office outpatient visit 15 minutes Josi HERNANDEZ Work Phone: [facility] Comment on above: Third trimester preg alejandro ([facility]); 31 weeks gestation of ([facility]) Start: 06-26-2025 End: 06-26-2025 ambulatory JOSI DUENAS Not Available Start: 06-11-2025 End: 06-11-2025 ambulatory CHELSEA JOHN Not Available Start: 06-11-2025 End: 06-11-2025 Office outpatient visit 15 minutes Chelsea John DO Work Phone: [facility] Comment on above: Third trimester preg alejandro ([facility]); 29 weeks gestation of ([facility]); Anemia affecting in third trimester ([facility]); Excessive growth affecting management of , antepartum, single or unspecified fetus ([facility]) Start: 06-11-2025 End: 06-11-2025 ambulatory CHELSEA JOHN [...] incons istent with dates in second trimester ([facility]) (Primary Dx); Second trimester ([facility]); 27 weeks gestation of ([facility]) Start: 05-02-2025 End: 05-02-2025 Bamboo flowsheet Chelsea John DO Work Phone: [facility] Start: 05-02-2025 End: 05-02-2025 Bamboo flowsheet Chelsea John DO Work Phone: [facility] Start: 05-02-2025 End: 05-02-2025 ambulatory CHELSEA JOHN Not Available Start: 05-02-2025 End: 05-02-2025 Office outpatient visit 15 minutes Chelsea John DO Work Phone: [facility] Comment on above: Diabetes mellitus sc reening; Second trimester ([facility]); 23 weeks gestation of ([facility]) Start: 04-10-2025 End: 04-10-2025 Clinisync Result Encounter Chelsea John DO Work Phone: [facility] External Department Unsolicited Start: 04-10-2025 End: 04-10-2025 Clinisync Result Encounter Chelsea John DO Work Phone: [facility] External Department Unsolicited Start: 04-03-2025 End: 04-03-2025 Bamboo flowsheet Josi HERNANDEZ Work Phone: [facility] Start: 04-03-2025 End: 04-04-2025 Bamboo flowsheet Josi HERNANDEZ Work Phone: [facility] Start: 04-03-2025 End: 04-04-2025 External Result Encounter Josi HERNANDEZ Work Phone: [facility] External Department Unsolicited Start: 04-03-2025 End: 04-03-2025 Office outpatient visit 15 minutes Josi HERNANDEZ Work Phone: [facility] Comment on above: Second trimester pre gnancy; 18 weeks gestation of ; Screening, , for anatomic survey; Screening examination for STI; Need for maternal serum alpha-protein (MSAFP) screening Start: 04-03-2025 End: 04-03-2025 ambulatory JOSI DUENAS Not Available Start: 02-26-2025 End: 02-26-2025 Bamboo flowsheet Chelsea John DO Work Phone: [facility] Start: 02-26-2025 End: 02-26-2025 Bamboo flowsheet Chelsea John DO Work Phone: [facility] Start: 02-26-2025 End: 02-26-2025 Office outpatient visit 15 minutes Chelsea John DO Work Phone: [facility] Comment on above: Second trimester pre gnancy; 12 weeks gestation of Start: 02-26-2025 End: 02-26-2025 ambulatory CHELSEA JOHN Not Available Start: 01-25-2025 End: 01-25-2025 ambulatory CHELSEA JOHN Not Available Start: 12-11-2024 End: 12-11-2024 Bamboo flowsheet Chelsea John DO Work Phone: [facility] Start: 12-11-2024 End: 12-17-2024 Bamboo flowsheet Chelsea John DO Work Phone: [facility] Start: 12-11-2024 End: 12-17-2024 Clinisync Result Encounter Chelsea John DO Work Phone: [facility] External Department Unsolicited Start: 12-11-2024 End: 12-11-2024 Patient encounter procedure Chelsea John DO Work Phone: [facility] Start: 12-11-2024 End: 12-11-2024 Periodic preventive med est patient 18-39 yrs Chelsea John DO Work Phone: [facility] Comment on above: Well woman exam with routine gynecological exam Start: 12-11-2024 End: 12-11-2024 ambulatory CHELSEA JOHN Not Available Start: 07-03-2024 End: 07-03-2024 ambulatory [facility] Work Phone: Start: 07-03-2024 End: 07-03-2024 Patient encounter procedure [facility] Work Phone: Start: 04-10-2024 Non-patient / Non-visit [facility] Work Phone: Start: 03-12-2024 End: 03-12-2024 ambulatory [facility] Start: 03-12-2024 End: 03-12-2024 Office outpatient visit 15 minutes Matt J Boaz SYSTEMS COORDINATOR-HARNESS FITTER Work Phone: [facility] Internal [facility] - [facility] Comment on above: Anxiety and depressi on (Primary Dx); Nausea; Syncope, unspecified syncope type Start: 02-27-2024 End: 02-28-2024 ambulatory [facility] josephine Start: 02-09-2024 Telephone encounter Mikala sultana [facility] - [facility] Start: 02-08-2024 End: 02-08-2024 ambulatory [facility] Start: 02-08-2024 End: 02-08-2024 Office outpatient visit 15 minutes [facility] SYSTEMS COORDINATOR-HARNESS FITTER Work Phone: [facility] - [facility] Comment on above: Viral upper respirat ory tract infection (Primary Dx); Chills; Epigastric pain; Syncope and collapse; Gastroesophageal reflux disease, unspecified whether esophagitis present Start: 01-03-2024 End: 01-03-2024 ambulatory [facility] Start: 01-03-2024 End: 01-03-2024 Office outpatient visit 15 minutes Matt Sandra SYSTEMS COORDINATOR-HARNESS FITTER Work Phone: [facility] - [facility] Comment on above: Anxiety and depressi on (Primary Dx) Start: 12-01-2022 End: 12-01-[address] CHELSEA LOPEZ Facility:[facility] Start: 11-30-2022 End: 12-01-[address] CHELSEA LOPEZ Facility:[facility] Start: 02-10-2022 End: 02-11-[address] CHELSEA LOPEZ Facility:[facility] Start: 07-29-2017 End: 07-29-2017 Emergency department patient visit [facility] Procedures Date Procedure Procedure Detail Performing Clinician Start: 07-31-2025 OB BPP W NON-STRESS Jo Ann Patino ROLL COVERER Work Phone: Start: 07-29-2025 Urnls dip stick/tabl et rgnt non-auto w/o micrscp Chelsea John DO Work Phone: Start: 07-24-2025 US OB BPP W NON-STRESS Jo Ann Pulliamly ROLL COVERER Work Phone: Start: 07-17-2025 US OB BPP W NON-STRESS Jo Ann Pulliamly ROLL COVERER Work Phone: Start: 07-10-2025 Urnls dip stick/tabl [...] test visual color cmprsn meths Matt Sandra SYSTEMS COORDINATORMi[facility] Work Phone: Start: 03-12-2024 Adult depression scr eening assessment Matt Sandra [facility] Work Phone: Start: 02-08-2024 Iaadiadoo streptococ cus group a Cuco Ceron [employer] Work Phone: Start: 02-08-2024 POCT INFLUENZA A/INF LUENZA B/SARS-COV-2 VERITOR Cuco Ceron [employer] Work Phone: Start: 02-08-2024 Adult depression scr eening assessment Cuco Pattonuch [employer] TechnologyHARNESS FITTER Work Phone: Start: 01-03-2024 Adult depression scr eening assessment Matt Ascencioillo [facility] Work Phone: Start: 08-09-2018 Microscopic observat ion [Identifier] in Cervix by Cyto stain Matt Sandra SYSTEMS COORDINATORMiTu NetworkF[facility] Work Phone: Plan of Treatment Date Care Activity Detail Author Start: 12-16-2025 End: 12-16-2025 Patient encounter procedure [facility] Start: 08-05-2025 End: 08-05-2025 Patient encounter procedure 08/05/2025 10:50 AM EDT Routine [facility] [address] [place] [address] Chelsea Lopez, DO [address] [place] [address] [facility] Start: 07-31-2025 End: 07-31-2025 Professional / ancillary services management 07/31/2025 9:30 AM EDT Ancillary Procedure [facility] [address] [place] [phone] [facility] Start: 07-29-2025 End: 07-29-2026 CULTURE, GROUP B STREP WITH SUSCEPTIBLITY CULTURE, GROUP B STREP WITH SUSCEPTIBLITY Lab Routine Third trimester ([facility]) Expected: 07/29/2025, Expires: 07/29/2026 [facility] Work Phone: Comment on above: Expected: 07/29/2025 , Expires: 07/29/2026 Start: 07-29-2025 End: 07-29-2025 Patient encounter procedure 07/29/2025 9:20 AM EDT Routine NOMRuth Martinez OBGYFany [address] [place] [phone] Josi Duenas PA [address] [place] [address] [facility] Start: 07-15-2025 Influenza vaccination [facility] Start: 07-10-2025 End: 07-10-2025 Patient encounter procedure 07/10/2025 2:10 PM EDT Routine MANDEEP Martinez OBGYFany [address] [place] [phone] Chelsea Lopez DO [address] [place] [address] [facility] Start: 07-10-2025 End: 01-10-2026 US biophysical profile w non stress test US biophysical profile w non stress test Imaging Routine Excessive growth affecting management of in third trimester, single or unspecified fetus ([facility]) Expected: 07/10/2025 (Approximate), Expires: 01/10/2026 [facility] [...] Procedure [facility] [address] [place] [phone] [facility] Start: 06-26-2025 End: 06-26-2025 Patient encounter procedure [facility] Comment on above: Arrived Start: 06-11-2025 End: 06-11-2025 Patient encounter procedure 06/11/2025 2:00 PM EDT Routine [facility] [address] [place] [phone] Chelsea Lopez, [address] [place] [address] [facility] Start: 06-11-2025 End: 10-12-2025 [...] EDT Ancillary Procedure [facility] [address] [place] [phone] [facility] Start: 05-29-2025 End: 09-29-2025 US for US OB follow up transabdominal approach Imaging Routine Size of fetus inconsistent with dates in second trimester ([facility]) Expected: 05/29/2025, Expires: 09/29/2025 [facility] Work Phone: Comment on above: Expected: 05/29/2025 , Expires: 09/29/2025 Start: 05-29-2025 End: 05-29-2025 Patient encounter procedure 05/29/2025 1:20 PM EDT Routine [facility] [address] [place] [address] Josi Duenas PA [address] [place] [address] [facility] Start: 05-02-2025 End: 05-02-2026 CBC panel - Blood by Automated count CBC Lab Routine Diabetes mellitus screening Expected: 05/02/2025 (Approximate), Expires: 05/02/2026 [facility] Work Phone: Comment on above: Expected: 05/02/2025 (Approximate), Expires: 05/02/2026 Start: 05-02-2025 End: 05-02-2026 Measurement of glucose 1 hour after glucose challenge for glucose tolerance test Glucose tolerance, 1 hour Lab Routine Diabetes mellitus screening Expected: 05/02/2025 (Approximate), Expires: 05/02/2026 [facility] Comment on above: Expected: 05/02/2025 (Approximate), Expires: 05/02/2026 Start: 05-02-2025 End: 05-02-2025 Patient encounter procedure 05/02/2025 8:50 AM EDT Routine [facility] [address] [place] [phone] Chelsea Lopez DO [address] [place], [place] [id number] [facility] Start: 04-03-2025 End: 05-04-2025 [...] Adult BMI Screening Adult BMI Screen ing [facility] Start: 03-12-2025 Depression Screening Depression Scre ening [facility] Start: 03-12-2025 Tobacco Screening Tobacco Screening [facility] Start: 02-26-2025 End: 02-26-2025 Patient encounter procedure 02/26/2025 9:50 AM EDT Routine [facility] [address] [place] [phone] Chelsea Lopez, DO [address] [place] [address] Arrived [facility] Comment on above: Arrived Start: 02-07-2025 Adult BMI Screening Adult BMI Screen ing [facility] Start: 02-07-2025 Depression Screening Depression Scre ening [facility] Start: 02-07-2025 Tobacco Screening Tobacco Screening [facility] Start: 01-03-2025 Adult BMI Follow Up Plan Adult BMI Follow Up Plan [facility] Start: 01-03-2025 Adult BMI Screening Adult BMI Screen ing [facility] Start: 01-03-2025 Depression Screening Depression Scre ening [facility] Start: 01-03-2025 Tobacco Screening Tobacco Screening [facility] Start: 12-11-2024 End: 12-11-2024 Patient encounter procedure 12/11/2024 1:20 PM EST Office Visit [facility] [address] [place] [address] Chelsea Lopez DO [address] [place] [address] Arrived [facility] Comment on above: Arrived Start: 07-15-2024 Influenza vaccination Influenza Vacc ine (#1) [facility] Start: 03-12-2024 End: 03-12-2024 Patient encounter procedure 03/12/2024 11:20 AM EDT [facility] [address] [place] [address] Matt Sandra, SYSTEMS COORDINATOR-HARNESS FITTER [address] [place] [phone] [facility] Internal Medicine - Family Medicine Start: 02-21-2024 End: 02-21-2024 Patient encounter procedure 02/21/2024 9:40 AM EDT Office Visit [facility] Internal Medicine - Family Medicine [address] [place] [address] Matt Sandra, SYSTEMS COORDINATOR-HARNESS FITTER [address] [place] [address] [facility] Internal Medicine - Family Medicine Start: 02-08-2024 End: 02-07-2025 Event monitor Event monitor Cardiac Services Routine Syncope and collapse Expected: 02/08/2024, Expires: 02/07/2025 [facility] Work Phone: Comment on above: Expected: 02/08/2024 , Expires: 02/07/2025 Start: 08-09-2021 Screening for malign ant neoplasm of cervix Pap Smear [facility] Start: 02-02-2007 DTaP,Tdap and Td Vaccines (6 - Tdap) DTaP,Tdap and Td Vaccines (6 - Tdap) [facility] Bacteria identified in Urine by Culture Urine culture Microbiology Routine Hematuria, unspecified type Ordered: 07/10/2025 [facility] Comment on above: Ordered: 07/10/2025 End: 03-12-2025 Basic metabolic 2000 panel - Serum or Plasma Basic Metabolic Panel Lab Routine Nausea 1 Occurrences starting 03/12/2024 until 03/12/2025 [facility] Comment on above: 1 Occurrences starti ng 03/12/2024 until 03/12/2025 End: 03-12-2025 CBC W Auto Differential panel - Blood CBC auto differential Lab Routine Nausea 1 Occurrences starting 03/12/2024 until 03/12/2025 [facility]: Comment on above: 1 Occurrences starti ng 03/12/2024 until 03/12/2025 CHLAMYDIA TRACHOMATI S (GENITO/STI) CHLAMYDIA TRACHOMATIS (GENITO/STI) Lab Routine Screening examination for STI Ordered: 04/03/2025 [facility] Comment on above: Ordered: 04/03/2025 Cytology Cervical or vaginal smear or scraping study Pap Smear Pathology and Cytology Routine Well woman exam with routine gynecological exam Ordered: 12/11/2024 [facility] [employer] Work Phone: Comment on above: Ordered: 12/11/2024 Hepatic function panel [facility] Neisseria gonorrhoea e DNA [Presence] in Unspecified specimen by MARION with probe detection Neisseria gonorrhea DNA probe, direct Lab Routine Screening examination for STI Ordered: 04/03/2025 [facility] Comment on above: Ordered: 04/03/2025 SURESWAB(R) ADVANCED VAGINITIS PLUS, TMA SURESWAB(R) ADVANCED VAGINITIS PLUS, TMA Pathology and Cytology Routine Screening examination for STI Ordered: 04/03/2025 [facility] [employer] Work Phone: Comment on above: Ordered: 04/03/2025 US Abdomen limited [facility] Immunizations Immunization Date Immunization Notes Care Provider Maegan argueta 07-30-2002 diphtheria, tetanus toxoids and acellular pertussis vaccine Matt Sandra SYSTEMS COORDINATOR-HARNESS [employer]TER Work Phone: [facility] 07-30-2002 measles, mumps and rubella virus vaccine Matt Boaz SYSTEMS COORDINATOR-[facility] Work Phone: [facility] 07-30-2002 poliovirus vaccine, inactivated Matt Sandra SYSTEMS COORDINATOR-[facility] Work Phone: [facility] 06-14-1997 diphtheria, tetanus toxoids and acellular pertussis vaccine Matt Boaz SYSTEMS COORDINATOR-[facility] Work Phone: [facility] 06-14-1997 haemophilus influenz ae type b vaccine, conjugate unspecified formulation Matt Sandra SYSTEMS COORDINATOR-[facility] Work Phone: [facility] 06-14-1997 measles, mumps and rubella virus vaccine Matt Sandra SYSTEMS COORDINATOR-[facility] Work Phone: [facility] 1996 diphtheria, tetanus toxoids and acellular pertussis vaccine Matt Sandra SYSTEMS COORDINATOR-[facility] Work Phone: [facility] 1996 haemophilus influenz ae type b vaccine, conjugate unspecified formulation Matt Sandra SYSTEMS COORDINATOR-[facility] Work Phone: [facility] 1996 hepatitis B vaccine, adult dosage Matt Boaz SYSTEMS COORDINATOR-[facility] Work Phone: [facility] 1996 poliovirus vaccine, inactivated Matt Sandra SYSTEMS COORDINATOR-[facility] Work Phone: [facility] 1996 diphtheria, tetanus toxoids and acellular pertussis vaccine Matt Sandra SYSTEMS COORDINATOR-[facility] Work Phone: [facility] 1996 haemophilus influenz ae type b vaccine, conjugate unspecified formulation Matt Sandra SYSTEMS COORDINATOR-[facility] Work Phone: [facility] 1996 poliovirus vaccine, inactivated Matt Sandra SYSTEMS COORDINATOR-[facility] Work Phone: [facility] 1996 diphtheria, tetanus toxoids and acellular pertussis vaccine Matt Sandra [facility] Work Phone: [facility] 1996 haemophilus influenz ae type b vaccine, conjugate unspecified formulation Matt Sandra [facility] Work Phone: [facility] 1996 hepatitis B vaccine, adult dosage Matt Sandra [facility] Work Phone: [facility] 1996 poliovirus vaccine, inactivated Matt [facility] Work Phone: [facility] 1996 hepatitis B vaccine, adult dosage Matt [facility] Work Phone: [facility] Payers Date Payer Category Payer Medicaid [id number] 2022 Medicaid [id number] 2017 Unknown [id number] 1996 Unknown [id number] 2.16.84 [id number] 1996 Unknown [id number] 2.16.84 0.1.317325.3.579.2.593 1996 Unknown [id number] 2.16.84 0.1.162265.3.579.2.593 1996 Unknown [id number] 2.16.8 40.1.566320.3.579.2.1286 1996 Unknown [id number] 2.16.8 40.1.051801.3.579.2.1286 1996 Unknown [id number] 2.16.8 40.1.995892.3.579.2.1286 1996 Unknown [id number] 2.16.8 40.1.626304.3.579.2.1286 1996 Unknown [id number] 2.16.8 40.1.939626.3.579.2.9 1996 Unknown [id number] 2.16.8 40.1.242108.3.579.2.9 1996 Unknown [id number] 2.16.8 40.1.909972.3.579.2.9 1996 Unknown [id number] 2.16.8 40.1.550722.3.579.2.1258 1996 Unknown [id number] 2.16.8 40.1.571839.3.579.2.1258 1996 Unknown [id number] 2.16.8 40.1.359702.3.579.2.1258 1996 Unknown [id number] 2.16.8 40.1.256792.3.579.2.9 1996 Unknown [id number] 2.16.8 40.1.541839.3.579.2.1258 1996 Unknown [id number] 2.16.8 40.1.803756.3.579.2.9 1996 Unknown [id number] 2.16.84 0.1.927562.3.579.2.1258 1996 Unknown [id number] 2.16.84 0.1.687884.3.579.2.9 1996 Unknown [id number] 2.16.84 0.1.308871.3.579.2.1258 1996 Unknown [id number] 2.16.84 0.1.420211.3.579.2.9 1996 Unknown [id number] 2.16.84 0.1.679542.3.579.2.1259 1959 Unknown [id number] Social History Date Type Detail Facility Start: 07-04-2023 End: 07-03-2024 Tobacco smoking status LAIS Never smoked tobacco (finding) [facility] Start: 1995 Sex Assigned At Female F [facility] Start: 07-04-2023 End: 01-03-2024 Tobacco use and exposure Smokeless tobacco non-user [facility] Start: 12-05-2023 End: 07-10-2025 Alcoholic beverage intake Lifetime non-drinker (finding) [facility] Start: 12-05-2023 End: 12-11-2024 History of Social function [facility] Start: 12-05-2023 End: 12-11-2024 Tobacco use panel [facility] Start: 1995 Sex assigned at Not on file P [facility] Start: 01-03-2024 End: 03-12-2024 Alcohol intake Current non-drinker of alcohol (finding) [facility] Do you belong to any clubs or organizations such as judaism groups, unions, fraternal or athletic groups, or school groups? No [facility] Are you now , , , , never or living with a partner? Never [facility] How often to you hav e a drink containing alcohol? Monthly or less [facility] How many standard dr inks containing alcohol do you have on a typical day? 1 or 2 [facility] How often do you hav e 6 or more drinks on 1 occasion? Less than monthly [facility] How hard is it for y ou to pay for the very basics like food, housing, medical care, and heating Somewhat hard [facility] Adolescent depressio n screening assessment 5 [facility] Do you feel stress - tense, restless, nervous, or anxious, or unable to sleep at night because your mind is troubled all the time - these days [OSQ] Rather much [facility] Start: 10-19-2019 Education 12 [facility] Start: 12-02-2024 [facility] [...] nursing note reviewed. Exam conducted with a project analyst present. Vitals: Estimated body mass index is 35.1 kg/m as calculated from the following: Height as of 11/30/22: 5' 3 . Weight as of this encounter: 198 lb 1.9 oz. BP: 110/68 Patient's last menstrual period was 11/18/2024. ASSESSMENT & PLAN ICD-10-CM 1. Third trimester ([facility]) Z34.93 CULTURE, GROUP B STREP WITH SUSCEPTIBLITY CULTURE, GROUP B STREP WITH SUSCEPTIBLITY POCT urinalysis dipstick manually resulted 2. 36 weeks gestation of ([facility]) Z3A.36 POCT urinalysis dipstick manually resulted Patient presents today for a routine obstetrics appointment. Patient is currently 36w1d with a Estimated Date of Delivery: 08/25/25. Discussed delivery next Tuesday for LGA. Patietn and spouse agreeable for IOL. Patient to sign IOL consents prior to leaving office today. Patient to arrive at [facility] on Tuesday night on 08/04/25 @6:30pm on Tuesday. GBS was obtained without difficulty and patient signed IOL consent. Spoke with Hope at [facility] to add patient to the books for Tuesday. Patient to schedule for 6 week appointment. Documented by Neyda Goldberg LPN on behalf of: Chelsea Lopez DO documented in this encounter [facility] 07-10-2025 History of [...] ASSESSMENT & PLAN ICD-10-CM 1. Third trimester ([facility]) Z34.93 POCT urinalysis dipstick manually resulted 2. 33 weeks gestation of ([facility]) Z3A.33 Return OB: Patient presents today for [...] Chelsea Lopez DO documented in this encounter [facility] 06-26-2025 History of [...] ASSESSMENT & PLAN ICD-10-CM 1. Third trimester ([facility]) Z34.93 POCT urinalysis dipstick manually resulted 2. 31 weeks gestation of ([facility]) Z3A.31 Return OB: Patient presents today for [...] of: DAVID Reid documented in this encounter [facility] 06-11-2025 History of [...] nursing note reviewed. Exam conducted with a project analyst present. Vitals: Estimated body mass index is 34.06 kg/m as calculated from the following: Height as of 11/30/22: 5' 3 . Weight as of this encounter: 192 lb 4 oz. BP: 122/68 Patient's last menstrual period was 11/18/2024. ASSESSMENT & PLAN ICD-10-CM 1. Third trimester ([facility]) Z34.93 POCT urinalysis dipstick manually resulted 2. 29 weeks gestation of ([facility]) Z3A.29 3. Anemia affecting in third trimester ([facility]) O99.013 iron polysaccharides (ProFe) 391.3 (180 Fe) MG capsule 4. Excessive growth affecting management of , antepartum, single or unspecified fetus ([facility]) O36.60X0 Return OB: Patient presents today for [...] Chelsea Lopez DO documented in this encounter [facility] 05-29-2025 History of [...] ASSESSMENT & PLAN ICD-10-CM 1. Second trimester ([facility]) Z34.92 POCT urinalysis dipstick manually resulted 2. 27 weeks gestation of ([facility]) Z3A.27 Return OB: Patient presents today for [...] of: DAVID Reid documented in this encounter [facility] 05-02-2025 History of [...] Glucose tolerance, 1 hour 2. Second trimester ([facility]) Z34.92 POCT urinalysis dipstick manually resulted 3. 23 weeks gestation of ([facility]) Z3A.23 Return OB: Patient presents today for [...] Chelsea Lopez DO documented in this encounter [facility] 04-03-2025 History of [...] of: DAVID Reid documented in this encounter [facility] 02-26-2025 History of [...] nursing note reviewed. Exam conducted with a project analyst present. Vitals: Estimated body mass index is [...] undercooked meat, and stay away from [facility]. Patient has been consulted regarding any further do's and don'ts of . Patient voiced understanding and all questions and concerns were answered. Orders Placed This Encounter Procedures POCT urinalysis dipstick manually resulted Follow Up: Patient is to return in 4 weeks for routine OB appointment. Documented by Audrey Weir LPN on behalf of: Chelsea Lopez DO documented in this encounter [facility] 12-11-2024 History of [...] nursing note reviewed. Exam conducted with a project analyst present. Vitals: Estimated body mass index is [...] Chelsea Lopez DO documented in this encounter [facility] 04-02-2024 Evaluation note Authored July 03, 2024 3:25pm 29-year-old female referred to the GI clinic for evaluation of upper abdominal pain. +upper abdominal pain that has resolved few months ago. She states that she still gets intermittent abdominal discomfort but less severe than how it was Will check CBC, LFTs and Lipase Will arrange US of the upper abdomen [facility] Work Phone: [phone]) 950-531004-29-2024 History of Present illness Narrative* Matt Sandra APRN-HARNESS FITTER - 03/12/2024 11:20 AM EDT Images from the original note were not included. [address] [place] [id number] SUBJECTIVE: Patient ID: Tara Bruno is a [...] 10/12/2017 Performed by Sarabjit Odom MD at [facility] TONSILLECTOMY WISDOM TOOTH EXTRACTION Past Medical [...] JAY Knight 03/12/24 1305 [facility] Miscellaneous Notes* Telephone Encounter - Mikala Murphy CMA - 02/09/2024 9:06 AM EDT Pt called and was in to see you yesterday 02/07 and is stuffed up today and coughing up yellow. Could you send in something to her local pharmacy? * Telephone Encounter - JAY Knight - 02/09/2024 9:06 AM EDT Christiano sent to [facility] pharmacy. Please remind her to do youth nutritional monitor as ordered by Melinda. * Telephone Encounter - Mikala Murphy CMA - 02/09/2024 9:06 AM EDT I called and read your note. Pt will get scheduled after this illness [facility] Telephone encounter Note* Telephone Encounter - Mikala Murphy CMA - 02/09/2024 9:06 AM EDT Pt called and was in to see you yesterday 02/07 and is stuffed up today and coughing up yellow. Could you send in something to her local pharmacy? [facility]03-28-2024 Telephone encounter Note* Telephone Encounter - JAY Knight - 02/09/2024 9:06 AM EDT Dapak sent to [facility] pharmacy. Please remind her to do youth nutritional monitor as ordered by Melinda. [facility]03-28-2024 Telephone encounter Note* Telephone Encounter - Mikala Murphy CMA - 02/09/2024 9:06 AM EDT I called and read your note. Pt will get scheduled after this illness [facility]03-27-2024 History of Present illness Narrative* JAY Little - 02/08/2024 11:40 AM EDT [address] [facility] [address] Patient: Tara Bruno Date of : 1995 [...] 10/12/2017 Performed by Sarabjit Odom MD at [facility] TONSILLECTOMY WISDOM TOOTH EXTRACTION Current Outpatient [...] LITTLE APRN-CNP 02/08/24 1255 [facility] History of Present illness Narrative* JAY Knight - 01/03/2024 10:15 AM EST Images from the original note were not included. [address] [facility] [address] SUBJECTIVE: Patient ID: Tara Bruno is a 28 y.o. female. Chief Complaint Patient presents with Anxiety Tara presents today wishing to restart medication for her moods. She does feel she ideally depressed. Her concern is anxiety, irritability, and feels short tempered. Is managing deal of personal stressors. Custody issues with her children's father who lives out of state. Has graduated from [employer]. 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 Depression [...] 10/12/2017 Performed by Sarabjit Odom MD at [facility] TONSILLECTOMY WISDOM TOOTH EXTRACTION Past Medical [...] JAY Knight 01/03/24 1047 documented [facility]* Diagnosis Well woman exam with routine gynecological exam Routine gynecological examination documented in this encounter [facility]* Diagnosis Anxiety and depression- Primary [facility] Diagnosis Acute bacterial sinusitis- Primary Acute sinusitis, unspecified documented in this [facility]* Diagnosis Viral upper respiratory tract infection- Primary Acute upper respiratory infections of unspecified site Chills Chills (without fever) Epigastric pain Abdominal pain, epigastric Syncope and collapse Gastroesophageal reflux disease, unspecified whether esophagitis present documented in this encounter [facility]* Diagnosis Anxiety and depression- Primary Nausea Nausea alone Syncope, unspecified syncope type documented in this encounter [facility]* Diagnosis Second trimester [...] be sent through Care Everywhere. * Depression ([place]) documented in [facility] encounter[facility] SystemInstructionsNot on file documented in this encounterProWhite HospitalInstructions* Attachments The following attachments cannot be sent through Care Everywhere. * Acid Reflux and GERD in Adults Discharge Instructions ([place]) documented in this [facility]ProNewark [facility] SystemInstructions* Attachments The following attachments cannot be sent through Care Everywhere. * Nausea and Vomiting, Adult ([place]) documented in this encounterProNewark Hospital System Summary Purpose Family History No Family [...] section and content) DATE CREATED AUTHOR 05/10/[address] [facility] DATE CREATED AUTHOR AUTHOR'S ORGANIZ ATION 12/02/2022 [facility] DATE CREATED AUTHOR AUTHOR'S ORGANIZ ATION 02/28/2024 [facility] DATE CREATED AUTHOR AUTHOR'S ORGANIZ ATION 03/13/2024 [facility] DATE CREATED AUTHOR AUTHOR'S ORGANIZ ATION 07/31/2025 [facility] Care Teams (unrecognized sec tion [...] July 03, 2024 End: July 03, 2024 Metal Inspector Relationship Specialty Start Date End Date Radha Calix PA [address] [place] [address] PCP - [facility] [place] [facility] 05/14/24 Metal Inspector Relationship Specialty Start Date End Date Radha Calix PA [address] [place] [address] PCP - [facility] [place] [facility] 05/14/24 Metal Inspector Relationship Specialty Start Date End Date Matt Sandra, SYSTEMS COORDINATOR-[facility] [address] [place] [address] PCP - General Family Medicine 10/16/19 Metal Inspector Relationship Specialty Start Date End Date Matt Sandra, SYSTEMS COORDINATOR-[facility] [address] [place] [address] PCP - General Family Medicine 10/16/19 Metal Inspector Relationship Specialty Start Date End Date Matt Sandra, SYSTEMS COORDINATOR-[facility] [address] [place] [address] PCP - General Family Medicine 10/16/19 Metal Inspector Relationship Specialty Start Date End Date Radha Calix PA PCP - [facility] [place] [facility] 05/14/24 Metal Inspector Relationship Specialty Start Date End Date Radha Calix PA NPI: PCP - [facility] [place] [facility] 05/14/24 Metal Inspector Relationship Specialty Start Date End Date Radha Calix PA NPI: PCP - [facility] [place] [facility] 05/14/24 Metal Inspector Relationship Specialty Start Date End Date Radha Calix PA NPI: PCP - [facility] [place] [facility] 05/14/24 Metal Inspector Relationship Specialty Start Date End Date Radha Calix PA NPI: PCP - [facility] 05/14/24 Metal Inspector Relationship Specialty Start Date End Date Radha Calix PA PCP - [facility] 05/14/24 Metal Inspector Relationship Specialty Start Date End Date Radha Calix PA PCP [facility] 05/14/24 Metal Inspector Relationship Specialty Start Date End Date Radha Calix PA PCP [facility] 05/14/24 Metal Inspector Relationship Specialty Start Date End Date Radha Calix PA PCP [facility] 05/14/24 Metal Inspector Relationship Specialty Start Date End Date [facility]/14[facility] Metal Inspector Relationship Specialty Start Date End Date Radha Calix PA PCP [facility] 05/14/24 Goals (unrecognized section and content) [...] BE BASED ON THE PRIMARY CLINICAL RECORDS. [facility] [employer] [facility]. provides no warranty or guarantee of the accuracy or completeness of information in this document.
[2025-08-03 10:27] VITALS: BP 116/78; PULSE 97
== END 2025-08-03 11:05 | disposition home or self-care (01) ==
LOC: FBCO 10:08 → FBC 10:21
PROVIDERS: PCP Nurse Practitioner; Visit Provider Obstetrics & Gynecology
DX: O36.63X0 Maternal care for excessive fetal growth, third trimester, not applicable or unspecified (principal); Z3A.00 Weeks of gestation of pregnancy not specified
CPT/HCPCS: 59025

== ENCOUNTER 2025-08-04 18:28 | Inpatient (IN) | payer MEDICAID, SELFPAY ==
--- OUTSIDE RECORDS SUMMARY | 2025-07-29 11:00 | XMS_ITS | Encounter Summary ---
Author Organization [facility] Address [address] [place] [address] Care Team Providers Care Manager Customer Name Role Phone CalixRadha Unavailable Encounter Details Date Type Department Care Team (Latest Contact Info) Description 07/29/2025 11:00 AM EDT Ancillary Procedure MANDEEP HERNANDEZ [address] [place] [address] Excessive growth affecting management of in third trimester, single or unspecified fetus ([facility]) Social History Tobacco Use Types Packs/Day Years [...] Care Team (Late st Contact Info) Description 08/05/2025 10:50 AM EDT Routine NOMRuth HERNA[address]DEZ [address] [place] [address] Henok Lopez DO [address] [place], [place] [id number] 12/16/2025 2:00 PM EST Office Visit MANDEEP HERNANDEZ [address] [place] [address] Henok Lopez, [address] [place] [address] documented as of this encounter Procedures Procedure Name Priority Date/Time Associated Diagnosis Comments US OB FOLLOW UP TRANSABDOMINAL APPROACH Routine 07/29/2025 11:19 AM EDT Excessive growth affecting management of in third trimester, single or unspecified fetus ([facility]) documented in this encounter Results * US OB follow up transabdominal approach (07/29/2025 11:19 AM EDT) Anatomical Region Laterality Modality Body Ultrasound 07/30/2025 12:3 9 PM EDT Impressions 07/30/2025 12:57 PM EDT 1. Single, live intrauterine , current sonographic age of 39 weeks and 6 days, with an estimated date of delivery of July 30, 2025. 2. Large for gestational age, unchanged from prior examination. 3. Comparison made with prior examination of July 10, 2025 at that time BENNETT 19.0 cm. * Estimated Weight (g) by Percentile is based upon an accurate estimated age based on last menstrual period. TRANSCRIBED BY: ELECTRONICALLY SIGNED BY: Aaron Calzada MD Narrative 07/30/2025 12:57 PM EDT FINDINGS: A single, live intrauterine is present with normal cardiac rate of 164 beats per minute. Normal activity and amniotic fluid volume. Amniotic fluid index is 20.0 cm. Morphology is grossly normal. The cervix obscured from positioning. The current sonographic age is 39 weeks and 6 days, based on the following measurements: BPD 9.9 cm (40 weeks, 3 days) Head Circumference 35.4cm (41 weeks, 3 days) Abdominal Circumference 35.6cm (39 weeks,4 days) Femur Length 7.5cm (38 weeks, 1 days) Presentation Cephalic Weight (g) by Percentile Greater 97.0 % * These measurements result in an estimated date of delivery of July 30, 2025. The current estimated weight is 3837 grams ( 8 pound, 7 ounces). Procedure Note Aaron Calzada MD - 07/30/2025 FINDINGS: A single, live intrauterine is present with normal cardiacrate of 164 beats per minute. Normal activity and amniotic fluidvolume. Amniotic fluid index is 20.0 cm. Morphology is grossly normal.The cervix obscured from positioning. The current sonographic age is39 weeks and 6 days, based on the following measurements: BPD 9.9 cm (40 weeks, 3 days) Head Circumference 35.4cm (41 weeks, 3 days) Abdominal Circumference 35.6cm (39 weeks,4 days) Femur Length 7.5cm (38 weeks, 1 days) Presentation Cephalic Weight (g) by Percentile Greater 97.0 % * These measurements result in an estimated date of delivery of 2024. The current estimated weight is 3837 grams ( 8 pound,7 ounces). IMPRESSION: 1. Single, live intrauterine , current sonographic age of 39weeks and 6 days, with an estimated date of delivery of July. 2. Large for gestational age, unchanged from prior examination. 3. Comparison made with prior examination of July 10, 2025 at that timeAFI 19.0 cm. * Estimated Weight (g) by Percentile is based upon an accurateestimated age based on last menstrual period. TRANSCRIBED BY: ELECTRONICALLY SIGNED BY: Aaron Calzaad MD us Jo Ann Patino PATTERN ROOM ATTENDANT IMG OB US PROCEDURES Final Re sult documented in this encounter Visit Diagnoses Diagnosis Excessive growth affecting management of in third trimester, single or unspecified fetus ([facility]) documented in this encounter Care Teams Manager Customer Relationship Specialty Start Date End Date Radha Calix PA PCP - [facility] 05/14/24 documented as of this encounter
--- OUTSIDE RECORDS SUMMARY | 2025-07-29 11:30 | XMS_ITS | Encounter Summary ---
Author Organization [facility] Address [address] [facility] [place] [address] Care Team Providers Care Fiberglass Quality Technician Name Role Phone Radha Calix Unavailable [phone] Reason for Visit * Reason Comments Routine Visit Encounter Details Date Type Department Care Team ([facility] Contact Info) Description 07/29/2025 11:30 AM EDT Routine MANDEEP [place] OBGYN [address] [place] [address] Henok Lopez DO [address] [facility] [place] [address] Third trimester ([facility]); 36 weeks gestation of ([facility]) Social History Tobacco Use Types Packs/Day [...] Reading Time Taken Comments Blood Pressure 110/68 07/29/2025 11:39 AM EDT Pulse - - Temperature - - Respiratory Rate - - Oxygen Saturation - - Inhaled Oxygen Concentration - - Weight 89.9 kg (198 lb 1.9 oz) 07/29/2025 11:39 AM EDT Height - - Body Mass Index 35.1 11/30/2022 12:00 PM EST documented in this encounter Progress Notes * Neyda Goldberg, SURVEY RESEARCH TEACHER - 07/29/2025 11:30 AM EDT Reason for Appointment: Patient ID: [...] appearance. She is well-developed. Genitourinary: Vulva normal. Cardiovascular: Rate and Rhythm: Normal rate and [...] nursing note reviewed. Exam conducted with a photonics engineering technologist present. Vitals: Estimated body mass index is 35.1 kg/m?? as calculated from the following: Height as of 11/30/22: 5' 3 . Weight as of this encounter: 198 lb 1.9 oz. BP: 110/68 Patient's last menstrual period was 11/18/2024. ASSESSMENT & PLAN ICD-10-CM 1. Third trimester ([facility]) Z34.93 CULTURE, GROUP B STREP WITH SUSCEPTIBLITY CULTURE, GROUP B STREP WITH SUSCEPTIBLITY POCT urinalysis dipstick manually resulted 2. 36 weeks gestation of ([facility]) Z3A.36 POCT urinalysis dipstick manually resulted Patient presents today for a routine obstetrics appointment. Patient is currently 36w1d with a Estimated Date of Delivery: 08/25/25. Discussed delivery next Tuesday for LGA. Patietn and spouse agreeable for IOL. Patient to sign IOL consents prior to leaving office today. Patient to arrive at [facility] on Tuesday night on 08/04/25 @6:30pm on Tuesday. GBS was obtained without difficulty and patientsigned IOL consent. Spoke with Hope at [facility] to add patient to the books for Tuesday. Patient to schedule for 6 week appointment. Documented by Neyda Goldberg LPN on behalf of: Henok Lopez DO documented in this encounter Plan of Treatment Upcoming Encounters Date Type Department Care Team (Late st Contact Info) Description 08/05/2025 10:50 AM EDT Routine MANDEEP HERNANDEZ [address] [facility] [place] [address] Henok Lopez, DO [address] [place], [place] [id number] 12/16/2025 2:00 PM EST Office Visit MANDEEP HERNANDEZ [address] [facility] [address] Henok Lopez, DO [address] [place], [place] [id number] Scheduled Orders Name Type Priority Associated Diagnoses Orde r Schedule CULTURE, GROUP B STREP WITH SUSCEPTIBLITY Lab Routine Third trimester ([facility]) Expected: 07/29/2025, Expires: 07/29/2026 documented as of this encounter Procedures Procedure Name Priority Date/Time Associated Diagnosis Comments POCT URINALYSIS DIPSTICK Routine 07/29/2025 11:44 AM EDT Third trimester ([facility]) 36 weeks gestation of ([facility]) documented in this encounter Results * POCT urinalysis dipstick manually resulted (07/29/2025 11:44 AM EDT) Color, UA Yellow Clarity, UA Clear Glucose, UA Negative Negative - 1999(110) ++++ mg/dL Bilirubin, UA Negative Negative - 4(70) +++ mg/dL Ketones, UA Negative Negative - 160(16) ++++ mg/dL Spec Grav, UA 6.500 1 - 1.03 Blood, UA Positive Negative - 50 Abhi/mcL pH, UA 1.0 5 - 9 Protein, UA Negative Negative - 1999(20) ++++ mg/dL Urobilinogen, UA 1.0 0.2 - 12 mg/dL Leukocytes, UA Negative Negative - 500+++ Pura/mcL Nitrite, UA Positive Negative - Positive Urine 07/29/2025 11:4 4 AM EDT Henok Lopez DO POINT OF CARE TEST ENTER/EDIT OR DERABLES Final Result documented in this encounter Visit Diagnoses Diagnosis Third trimester ([facility]) state, incidental 36 weeks gestation of ([facility]) documented in this encounter Care Teams Fiberglass Quality Technician Relationship Specialty Start Date End Date Radha Calix PA PCP - [facility] BAD CREDIT COLLECTOR 05/14/24 documented as of this encounter
[2025-08-04] VITALS (13 sets, daily range): BP systolic 101–139; BP diastolic 57–85; PULSE 72–99; TEMP 35.8–36.9
--- OUTSIDE RECORDS SUMMARY | 2025-08-04 18:30 | XMS_ITS | Encounter Summary ---
Author Organization [employer] Sys [employer] Address [id number] [address] [place] [address] Care Team Providers Care Pickup Driver Name Role Phone Fabiana Sandra Primary Care Provid er Encounter Details Date Type Department Care Team (Late st Contact Info) Description 05/08/2018 Refill [facility] [address] [place] [address] Clari Slaughter MA Social History Tobacco [...] on filedocumented in this encounter Care Teams Pickup Driver Relationship Specialty Start Date End Date Fabiana Sandra APRN-ELIGIBILITY SUPERVISOR PCP - General Family Medicine 10/16/19 documented as of this encounter
--- OUTSIDE RECORDS SUMMARY | 2025-08-04 18:30 | XMS_ITS | Encounter Summary ---
Author Organization [facility] Address [address] [facility] [place] [address] Care Team Providers Care Rock Mason Name Role Phone Radha Calix Unavailable [phone] Encounter Details Date Type Department Care Team (Late Contact Info) Description 07/25/2025 Abstract MANDEEP HERNANDEZ [address] [place] [address] Henok Lopez DO [address], [place] [address] Social History Tobacco Use Types Packs/Day Years [...] Routine MANDEEP HERNANDEZ [address] [place] [address] Henok Lopez DO [address], [place] [address] 12/16/2025 2:00 PM EST Office Visit MANDEEP BRADLEYGYN [address] [place] [phone] Henok Lopez DO [address] [facility] [place] [address] documented as of this encounter Visit Diagnoses Not on filedocumented in this encounter Care Teams Rock Mason Relationship Specialty Start Date End Date Radha Calix PA PCP - NOMRuth Ortiz POLICE RESERVES COMMANDER 05/14/24 documented as of this encounter
--- OUTSIDE RECORDS SUMMARY | 2025-08-04 18:30 | XMS_ITS | Encounter Summary ---
Author Organization [facility] Address [address] [facility] [place] [address] Care Team Providers Care Internal Combustion Engineer Name Role Phone Radha Calix Unavailable [phone] Encounter Details Date Type Department Care Team (Late Contact Info) Description 07/25/2025 Abstract MANDEEP HERNANDEZ [address] [place] [address] Henok Lopez DO [address], [place] [address] Social History Tobacco Use Types Packs/Day Years [...] EDT Routine MANDEEP HERNANDEZ [address] [place] [address] Henok Lopez DO [address], [place] [address] 12/16/2025 2:00 PM EST Office Visit MANDEEP BRADLEYGYN [address] [phone] Henok Lopez DO [address] [facility] [place] [address] documented as of this encounter Visit Diagnoses Not on filedocumented in this encounter Care Teams Internal Combustion Engineer Relationship Specialty Start Date End Date Radha Calix PA PCP - NOMRuth Ortiz VETERINARY PRACTITIONER 05/14/24 documented as of this encounter
--- OUTSIDE RECORDS SUMMARY | 2025-08-04 18:31 | XMS_ITS | Encounter Summary ---
Author Organization [employer] Address [id number] [address] [place] [address] Care Team Providers Care Direct Sales Consultant Name Role Phone Fabiana Sandra APRN-BRIM CUTTER Primary Care Provid er Encounter Details Date Type Department Care Team (Late st Contact Info) Description 03/15/2024 Telephone [facility] Internal [facility] - Family Medicine [address] [facility] [place] [phone] Mikala Murphy CMA Social History Tobacco Use [...] often do you attend chur ch or lutheran services? Never 10/15/2021 Do you belong to any clubs o r organizations such as episcopalian groups, unions, fraternal or athletic groups, or [...] Answer Date Recorded Total Score 0 03/12/2024 [facility] of Occupat ional Health - [...] Recorded Do you need help finding a [facility] career center and/or a [...] documented as of this encounter Care Teams Direct Sales Consultant Relationship Specialty Start Date End Date Fabiana Sandra APRN-CNP PCP - General Family Medicine 10/16/19 documented as of this encounter
--- OUTSIDE RECORDS SUMMARY | 2025-08-04 18:31 | XMS_ITS | Encounter Summary ---
Author [facility] Address [id number] [address] [place] [address] Care Team Providers Care Timber Estimator Name Role Phone Fabiana Sandra APRN-POWERHOUSE MECHANIC APPRENTICE Primary Care Provid er Encounter Details Date Type Department Care Team (Late st Contact Info) Description 04/15/2025 Orders Only [facility] Internal Medicine - Family Medicine [address] [place] [address] Ref Prov, [place] [address] Social History Tobacco Use Types Packs/Day Years [...] often do you attend chur ch or gnosticist services? Never 10/15/2021 Do you belong to any clubs o r organizations such as religion groups, unions, fraternal [...] Answer Date Recorded Total Score 0 03/12/2024 [facility] of Occupat ional Health - Occupational Stress [...] documented as of this encounter Care Teams Timber Estimator Relationship Specialty Start Date End Date Fabiana Sandra, KIM-POWERHOUSE MECHANIC APPRENTICE PCP - General Family Medicine 10/16/19 documented as of this encounter
--- OUTSIDE RECORDS SUMMARY | 2025-08-04 18:31 | XMS_ITS | Encounter Summary ---
Author Organization [email or web address] Address [facility] [id number] [address] [place] [address] Care Team Providers Care Wire Twister Name Role Phone Fabiana Sandra APRN-FURNACE CLERK Primary Care Provid er Reason for Visit * Reason Comments Med Refill Encounter Details Date Type Department Care Team (Late st Contact Info) Description 08/09/2023 Refill [facility] Internal Medicine - Family Medicine [address] [place] [address] Fabiana Sandra APRN-FURNACE CLERK [address] [place] [address] Anxiety and depression Social History Tobacco Use [...] often do you attend chur ch or buddhism services? Never 10/15/2021 Do you belong to any clubs o r organizations such as orthodoxy groups, unions, fraternal or athletic groups, or [...] Answer Date Recorded Total Score 0 04/27/2022 [facility] of Occupat ional Health - Occupational [...] documented as of this encounter Care Teams Wire Twister Relationship Specialty Start Date End Date Fabiana Sandra, SENIOR ANALYTIC CONSULTANT-FURNACE CLERK PCP - General Family Medicine 10/16/19 documented as of this encounter
--- OUTSIDE RECORDS SUMMARY | 2025-08-04 18:31 | XMS_ITS | Encounter Summary ---
Author Organization [employer] Address [id number] [address] [place] [address] Care Team Providers Care Manager Interventional Name Role Phone Fabiana Sandra Primary Care Provid er Encounter Details Date Type Department Care Team (Late st Contact Info) Description 09/14/2017 Telephone [facility] [address] [place] [address] Sarabjit Odom MD Replaced by [facility] [place], [place] [id number] Social History Tobacco Use Types Packs/Day Years [...] on filedocumented in this encounter Care Teams Manager Interventional Relationship Specialty Start Date End Date Fabiana Sandra APRN-CNP PCP - General Family Medicine 10/16/19 documented as of this encounter
--- OUTSIDE RECORDS SUMMARY | 2025-08-04 18:31 | XMS_ITS | Encounter Summary ---
Author Organization [facility] Address [address] [facility] [place] [address] Care Team Providers Care Solder Leveler Printed Circuit Boards Name Role Phone CalixRadha Unavailable Encounter Details Date Type Department Care Team (Late st Contact Info) Description 07/24/2025 Clinisync Result Encounter [facility] External Department Unsolicited Norm Patino, RUSS [address] [facility] [place] [address] Social History Tobacco Use Types Packs/Day [...] AM EDT Routine [facility] Michelle HERNANDEZ [address] [place] [phone] Henok Lopez DO [address], [place] [address] 12/16/2025 2:00 PM EST Office Visit NOMRuth HERNANDEZ [address] [place] [address] Henok Lopez, DO [address] [facility] [place] [address] documented as of this encounter Procedures Procedure Name Priority Date/Time Associated Diagnosis Comments US OB BPP W NON-STRESS 07/24/2025 11:09 AM EDT documented in this encounter Results * US OB BPP W NON-STRESS (07/24/2025 11:09 AM EDT) Anatomical Region Laterality Modality Other 07/24/2025 11:0 9 AM EDT Narrative 07/24/2025 11:11 AM EDT [address] [address] Ultrasound Report Signed Patient: TARA ISLAS MR#: [id number] : 1995 Acct:[id number] Age/Sex: 30 / F ADM Date: 07/24/25 Loc: US Attending Dr: Norm Patino Ordering Physician: Norm Patino Date of Service: 07/24/25 Procedure(s): US OB BPP w non-stress Accession Number(s): [id number] cc: MATT BRODERICK Kristina [address] [address] Patient Name: TARA ISLAS MRN: [facility]:[id number] date: 1995 Sex: F Assigned Patient Location: [facility] Current Patient Location: Accession/Order Number: [id number] Exam Date: 07/24/2025 10:02 Report Date: 07/24/2025 11:09 At the request of: NORM PATINO Procedure: US OB BPP w non-stress BIOPHYSICAL PROFILE: CLINICAL INFORMATION: Excessive growth COMPARISON: 07/17/2025 There is a single live intrauterine gestation in cephalic presentation. The reported gestational age is 35 weeks 3 days. The heart rate vxxiaebi056 beats per minute. FINDINGS: TONE: 1 or [...] Kuo M.D. 07/24/2025 11:09 AM Dictation Location: [employer] Electronically authenticated by: [id number] Y Date: 07/24/2025 11:09 Dictated By: Audrey Kuo M.D. Signed By: 07/24/25 1111 DD/ 1109 TD/TT: [employer] Umpire: Procedure Note Radiology, Radiologist, MD - 07/24/2025 [place] [address] Ultrasound Report Signed Patient: TARA ISLAS AMR#: [id number] : 1995Acct:[id number] Age/Sex: 30 FADM Date: 07/24/25 Loc: US Attending Dr: Norm Patino Ordering Physician: Norm Patino Date of Service: 07/24/25 Procedure(s): US OB BPP w non-stress Accession Number(s): [id number] cc: MATT BRODERICK Kristina [place] [id number] Patient Name: TARA ISLAS MRN: [id number] date: 1995 Sex: F Assigned Patient Location: [facility] Current Patient Location: Accession/Order Number: [id number] Exam Date: 07/24/2025 10:02 Report Date: 07/24/2025 11:09 At the request of: NORM PATINO Procedure: US OB BPP w non-stress BIOPHYSICAL PROFILE: CLINICAL INFORMATION: Excessive growth COMPARISON: 07/17/2025 There is a single live intrauterine gestation in cephalic presentation.The reported gestational age is 35 weeks 3 days. The heart [id number] beats per minute. FINDINGS: TONE: 1 or [...] Kuo M.D. 07/24/2025 11:09 AM Dictation Location: [facility] [email or web address] Electronically authenticated by: [id number] Y Date: 1:09 Dictated By: Audrey Kuo M.D. Signed By:07/24/25 1111 DD/ 1109 TD/TT: [employer] Umpire: Norm Patino MOLDER MACHINE [facility] Final Resul t documented in this encounter Visit Diagnoses Not on filedocumented in this encounter Care Teams Solder Leveler Printed Circuit Boards Relationship Specialty Start Date End Date Radha Calix PA PCP - NOMRuth Ortiz DIRECTOR WEIGHTS AND MEASURES 05/14/24 documented as of this encounter
--- OUTSIDE RECORDS SUMMARY | 2025-08-04 18:31 | XMS_ITS | Encounter Summary ---
Author Organization [employer] Address [id number] [address] [place] [address] Care Team Providers Care Professional Employer Consultant Name Role Phone Fabiana Sandra APRN-MEMORANDUM STATEMENT CLERK Primary Care Provid er Encounter Details Date Type Department Care Team (Late st Contact Info) Description 03/30/2024 Orders Only [facility] - Family Medicine [address] [facility] [place] [address] External, Scanning Provider Social History Tobacco Use [...] often do you attend chur ch or amish services? Never 10/15/2021 Do you belong to [...] Answer Date Recorded Total Score 0 03/12/2024 [facility] of Occupat ional Health - [...] Recorded Do you need help finding a [facility] career center and/or a training program? No [...] documented as of this encounter Care Teams Professional Employer Consultant Relationship Specialty Start Date End Date Fabiana Sandra APRN-MEMORANDUM STATEMENT CLERK PCP - General Family Medicine 10/16/19 documented as of this encounter
--- OUTSIDE RECORDS SUMMARY | 2025-08-04 18:31 | XMS_ITS | Clinical Summary ---
Author Organization [facility] Address [address] [facility] [place] [address] Care Team Providers Care Cost Accounting Analyst Name Role Phone Radha Calix Unavailable [phone] Allergies Active Allergy Reactions Criticality Noted [...] Encounters Date Type Department Care Team Description 07/31/2025 Clinisync Result Encounter [facility] External Department Unsolicited Carey, Jo Ann, FIELD RESEARCH ASSISTANT 07/29/2025 11:30 AM EDT Routine [place] [phone] Henok Lopez, Third trimester ([facility]); 36 weeks gestation of ([facility]) 07/29/2025 11:00 AM EDT [place]illary [place] [address] Excessive growth affecting management of in third trimester, single or unspecified fetus ([facility]) 07/25/2025 [place] [address] Henok Lopez, 07/25/2025 Abstract [facility] Michelle [facility] [place] [address] Henok Lopez, 07/24/2025 Clinisync Result Encounter [facility] External Department Unsolicited Jo Ann Patino, RUSS 07/17/2025 Clinisync Result Encounter [facility] External Department Unsolicited Jo Ann Patino, FIELD RESEARCH ASSISTANT 07/10/2025 2:10 PM [place] [address] Henok Lopez, Excessive growth affecting management of in third trimester, single or unspecified fetus ([facility]) (Primary Dx); Third trimester ([facility]); 33 weeks gestation of ([facility]); Hematuria, unspecified type 07/10/2025 1:30 PM EDT Ancillary [place] [phone] Excessive growth affecting management of , antepartum, single or unspecified fetus ([facility]) 06/26/2025 1:30 PM [place] [address] [phone] Josi Cardoza PA Third trimester ([facility]); 31 weeks gestation of ([facility]) 06/26/2025 Bamboo flowsheet [facility] Michelle HERNANDEZ [address] [place] [address] [place] [phone] Josi Cardoza PA 06/11/2025 2:00 PM EDT Routine NOMS Michelle Christian [facility] [place] [address] Henok Lopez DO Third trimester ([facility]); 29 weeks gestation of ([facility]); Anemia affecting in third trimester ([facility]); Excessive growth affecting management of , antepartum, single or unspecified fetus ([facility]) 06/11/2025 1:30 PM EDT Ancillary Procedure NOMS Michelle [address] [facility] [place] [address] Size of fetus inconsistent with dates in second trimester ([facility]) 05/31/2025 Abstract [facility] Michelle HERNANDEZ [address] [place] [address] [place] [address] Henok Lopez DO 05/29/2025 1:20 PM EDT Routine [facility]OM[facility] Michelle HERNANDEZ [address] [place] [address] [place] [address] Josi Cardoza PA Size of fetus inconsistent with dates in second trimester ([facility]) (Primary Dx); Second trimester ([facility]); 27 weeks gestation of ([facility]) 05/29/2025 Clinisync Result Encounter NOMS External Department Unsolicited Henok Lopez DO 05/09/2025 Patient Outreach [facility] [address] [place] [address] Josi Vizcaino LPN 05/07/2025 Abstract [facility] [address] [place] [address] Vizcaino, Josi, WELT TRIMMING MACHINE OPERATOR from Last 3 Months Family History Medical [...] 08/05/2025 10:50 AM EDT Routine NOMRuth HERNANDEZ [facility] [place] [address] Henok Lopez, [address] [place], [place] [phone] 12/16/2025 2:00 PM EST Office Visit NOMRuth HERNANDEZ [address] [place] [address] Henok Lopez, [address] [place] [address] Health Maintenance Due Date Last Done Comments Influenza Vaccine (#1) 2025 Procedures Procedure Name Priority Date/Time Associated Diagnosis Comments US OB BPP W NON-STRESS 07/31/2025 11:26 AM EDT POCT URINALYSIS DIPSTICK Routine 07/29/2025 11:44 AM EDT Third trimester ([facility]) 36 weeks gestation of ([facility]) US OB FOLLOW UP TRANSABDOMINAL APPROACH Routine 07/29/2025 11:19 AM EDT Excessive growth affecting management of in third trimester, single or unspecified fetus ([facility]) US OB BPP W NON-STRESS 07/24/2025 [...] WITH AUTO DIFF Routine 11:24 AM EDT from Last 3 Months Results * US OB BPP W NON-STRESS (07/31/2025 11:26 AM EDT) Only the most recent of3 resultswithin the time period is included. Anatomical Region Laterality Modality Other 07/31/2025 11:2 6 AM EDT Narrative 07/31/2025 11:29 [place] [address] Ultrasound Report Signed Patient: TARA ISLAS MR#: [id number] : 1995 Acct:[id number] Age/Sex: 30 / F ADM Date: 07/31/25 Loc: [facility] 250-[address]: Jo Ann Patino Ordering Physician: Jo Ann Patino Date of Service: 07/31/25 Procedure(s): US OB BPP w non-stress Accession Number(s): [id number] cc: MATT BRODERICK [address] [place] [address] Patient Name: TARA ISLAS MRN: [facility]:[id number] date: 1995 Sex: F Assigned Patient Location: [facility] Current Patient Location: [facility] Accession/Order Number: [id number] Exam Date: 07/31/2025 10:05 Report Date: 07/31/2025 [...] is in upper normal range. Total score: 8 US/US OB BPP w non-stress IMPRESSION: NORMAL BIOPHYSICAL PROFILE Impression dictated by: Audrey Kuo M.D. 07/31/2025 11:26 AM Dictation Location: [place] [address] Electronically authenticated by: [id number] Y Date: 07/31/2025 11:26 Dictated By: Audrey Kuo M.D. Signed By: 07/31/25 1129 DD/ 1126 TD/TT: Cell Maker: Procedure Note Radiology, Radiologist, MD - 07/31/2025 [place] [address] Ultrasound Report Signed Patient: TARA ISLAS AMR#: [id number] : 1995Acct:[id number] Age/Sex: 30 / FADM Date: 07/31/25 Loc: [place] [address]- Attending Dr: Jo Ann Patino Ordering Physician: Jo Ann Patino Date of Service: 07/31/25 Procedure(s): US OB BPP w non-stress Accession Number(s): [id number] cc: MATT BRODERICK ; Jo Ann Patino [place] [address] Patient Name: TARA ISLAS MRN: [id number] date: 1995 Sex: F Assigned Patient Location: [facility] Current Patient Location: [facility] Accession/Order Number: [id number] Exam Date: 07/31/2025 10:05 Report Date: 07/31/2025 11:26 At the request of: JO ANN PATINO Procedure: US OB BPP w non-stress BIOPHYSICAL PROFILE: CLINICAL INFORMATION: Excessive growth Comparison: 07/23/2025 There is a single live intrauterine gestation in cephalic presentation.The reported gestational age is 36 weeks 3 days. The heart ratemeasures 161 beats per minute. FINDINGS: TONE: 1 [...] Kuo M.D. 07/31/2025 11:26 AM Dictation Location: [employer] Electronically authenticated by: [id number] Y Date: 1:26 Dictated By: Audrey Kuo M.D. Signed By:07/31/25 1129 DD/ 1126 TD/TT: Cell Maker: Jo Ann Patino FIELD RESEARCH ASSISTANT [facility] Final Resul t * POCT urinalysis dipstick manually resulted (07/29/2025 11:44 AM EDT) Only the most recent of5 resultswithin [...] up transabdominal approach (07/29/2025 11:19 AM EDT) Only the most recent of3 resultswithin the time period is included. Anatomical Region Laterality Modality Body Ultrasound 07/30/2025 [...] BY: ELECTRONICALLY SIGNED BY: Aaron Calzada MD Jo Ann Patino NP IMG OB US PROCEDURES Final Re sult * GLUCOSE 1 HOUR (05/29/2025 11:24 AM EDT) GLUCOSE 1 HOUR 129 <130 mg/dL [facility] 05/29/2025 11:2 4 AM EDT 05/29/2025 11:25 AM EDT Narrative [facility] - 05/29/2025 11:40 AM EDT us Henok Lopez DO LAB BLOOD ORDERABLES Final Resul t [facility] * (ABNORMAL) ALL CBC WITH AUTO DIFF [...] EDT Henok Lopez DO [facility] Final Result [facility] Last 3 Months [facility] MED[facility] [place] Care Teams Cost Accounting Analyst Relationship Specialty Start Date End Date Radha Calix PA PCP - MANDEEP Ortiz [facility] GROWER 05/14/24
--- OUTSIDE RECORDS SUMMARY | 2025-08-04 18:31 | XMS_ITS | Encounter Summary ---
Author Organization [facility] Address [address] [facility] [place] [address] Care Team Providers Care Steel Estimator Name Role Phone CalixRadha Unavailable Encounter Details Date Type Department Care Team (Late st Contact Info) Description 07/31/2025 Clinisync Result Encounter [facility] External Department Unsolicited Norm Patino, RUSS [address] [facility] [place] [address] Social History Tobacco Use Types Packs/Day [...] AM EDT Routine [facility] Michelle HERNANDEZ [address] [place] [address] Henok Lopez DO [address] [place], [place] [id number] 12/16/2025 2:00 PM EST Office Visit NOMRuth HERNANDEZ [address] [place] [address] Henok Lopez, DO [address] [facility] [address] [place] [address] documented as of this encounter Procedures Procedure Name Priority Date/Time Associated Diagnosis Comments US OB BPP W NON-STRESS 07/31/2025 11:26 AM EDT documented in this encounter Results * US OB BPP W NON-STRESS (07/31/2025 11:26 AM EDT) Anatomical Region Laterality Modality Other 07/31/2025 11:2 6 AM EDT Narrative 07/31/2025 11:29 AM EDT [address] [address] Ultrasound Report Signed Patient: TARA ISLAS MR#: [id number] : 1995 Acct:[id number] Age/Sex: 30 / F ADM Date: 07/31/25 Loc: [facility] 250-[address]: Norm Patino Ordering Physician: Norm Patino Date of Service: 07/31/25 Procedure(s): US OB BPP w non-stress Accession Number(s): [id number] cc: MATT BRODERICK Kristina The [address] [address] Patient Name: TARA ISLAS MRN: [id number] date: 1995 Sex: F Assigned Patient Location: [facility] Current Patient Location: [facility] Accession/Order Number: [id number] Exam Date: 07/31/2025 10:05 Report Date: 07/31/2025 11:26 At the request of: NORM PATINO Procedure: [...] Kuo M.D. 07/31/2025 11:26 AM Dictation Location: [place] [address] Electronically authenticated by: [id number] Y Date: 07/31/2025 11:26 Dictated By: Audrey Kuo M.D. Signed By: 07/31/25 1129 DD/ 1126 TD/TT: Mems Engineer: Procedure Note Radiology, Radiologist, MD - 07/31/2025 [place] [address] Ultrasound Report Signed Patient: TARA ISLAS AMR#: [id number] : 1995Acct:[id number] Age/Sex: 30 / FADM Date: 07/31/25 Loc: [place] [address]: Norm Patino Ordering Physician: Norm Patino Date of Service: 07/31/25 Procedure(s): US OB BPP w non-stress Accession Number(s): [id number] cc: MATT BRODERICK Kristina The [place] [id number] Patient Name: TARA ISLAS MRN: [id number] date: 1995 Sex: F Assigned Patient Location: [facility] Current Patient Location: [facility] Accession/Order Number: [id number] Exam Date: 07/31/2025 10:05 Report Date: 07/31/2025 11:26 At the request of: NORM PATINO Procedure: [...] Kuo M.D. 07/31/2025 11:26 AM Dictation Location: [place] Electronically authenticated by: [id number] Y Date: 1:26 Dictated By: Audrey Kuo M.D. Signed By:07/31/25 1129 DD/ 1126 TD/TT: Mems Engineer: Norm Patino NP [facility] Final Resul t documented in this encounter Visit Diagnoses Not on filedocumented in this encounter Care Teams Steel Estimator Relationship Specialty Start Date End Date Radha Calix PA PCP - NOMRuth Ortiz [facility] 05/14/24 documented as of this encounter
--- OUTSIDE RECORDS SUMMARY | 2025-08-04 18:31 | XMS_ITS | Clinical Summary ---
Author Organization [employer] Address [id number] [address] [place] [address] Care Team Providers Care Auto Brake Technician Name Role Phone Fabiana Sandra APRN-DIRECTOR PHYSICAL Primary Care Provid er Allergies Active Allergy [...] Answer Date Recorded Total Score 0 03/12/2024 [facility] - Occupational [...] Recorded Do you need help finding a [facility] and/or a training program? No 10/15/2021 [...] Narrative COPATH - 08/21/2018 12:43 PM EDT [facility] [address] [place] [address] Gynecologic Cytology Consultation Patient Name: TARA ISLAS : 1995 (Age: 23) Gender: F Taken: 08/09/2018 Reported: 08/21/2018 Physician(s): Sarabjit Odom M.D. Copy To: [facility]. Rec. #: [id number] Acct: # [id number] Final Cytologic Interpretation Cervical (with or without endocervical) ThinPrep: Satisfactory for evaluation. A transformation zone component is present. NEGATIVE FOR INTRAEPITHELIAL LESION OR MALIGNANCY. lvt/08/21/2018 Interpretation performed at [facility], [address] [place] [address], License number: [id number]. Electronically Signed Out By HARJEET Cruz(ASCP) Date of Last Menstrual Period: 06/14/18 Other Clinical Conditions: z12.4 Screenings for malignant neoplasm of cervix z87.898 Hx of abnormal cervical pap smear Previous abnormal pap Hormone replacement therapy Previous treatment: Colposcopy and LEEP Previous cytology: HSIL, YVETTE II - III Source of Specimen Cervical (with or without endocervical) ThinPrep Thin Prep Pap (INDUSTRIAL ENGINEERING DIRECTOR) Fee Code(s): G0145 The Pap test is a screening test with an inherent, but low, probability of error. The Pap test is primarily effective for the diagnosis and prevention of squamous cell carcinoma. Regular screening is critical for prevention. ThinPrep liquid-based slides, which meet the Tank Driver criteria for automated screening, have been screened by the ThinPrep Imaging System (as of 07/31/07) along with an additional manual rescreening by a vacuum technician and, if indicated, by a pathologist.Sarabjit Odom M.D. 08/14/2018 Sarabjit Odom MD PATHOLOGY/CYTOLOGY ORDERABLES Final Result COPATH from Last 3 Months or Most Recently Relevant to Health Maintenance Insurance [employer] Member Subscriber Plan / Payer (Ef fective 2022-Present) Name:Tara Islas Relation to Subscriber:Self Name:Tara Islas Payer ID:Not on file Group ID:[id number] Type:Not on file Address: [facility] [id number] [place] [id number] Care Teams Auto Brake Technician Relationship Specialty Start Date End Date Fabiana Sandra, SURGICAL TRAINING SPECIALIST-DIRECTOR PHYSICAL PCP - General Family Medicine 10/16/19
--- OUTSIDE RECORDS SUMMARY | 2025-08-04 18:31 | XMS_ITS | Encounter Summary ---
Author Organization [facility] Address [address] [place] [address] Care Team Providers Care Elementary School Counselor Name Role Phone Radha Calix Unavailable Encounter Details Date Type Department Care Team (Late st Contact Info) Description 05/07/2025 Abstract [facility] [address] [place] [phone] Josi Vizcaino, BETHEL [address] [place] [address] Social History Tobacco Use Types Packs/Day Years [...] 10:50 AM EDT Routine MANDEEP HERNANDEZ [address] [place] [phone] Henok Lopez DO [address] [place] [address] 12/16/2025 2:00 PM EST Office Visit MANDEEP HERNANDEZ [address] [facility] [place] [address] Henok Lopez DO [address] [facility] [place] [address] documented as of this encounter Visit Diagnoses Not on filedocumented in this encounter Care Teams Elementary School Counselor Relationship Specialty Start Date End Date Radha Calix PA PCP - [facility] Diana HYDRAULIC HAMMER OPERATOR 05/14/24 documented as of this encounter
--- OUTSIDE RECORDS SUMMARY | 2025-08-04 18:31 | XMS_ITS | Encounter Summary ---
Author Organization [facility] Address [address] [facility] [place] [address] Care Team Providers Care Book Mender Name Role Phone Radha Calix Unavailable [phone] Encounter Details Date Type Department Care Team (Late st Contact Info) Description 04/04/2025 Results Follow-Up MANDEEP [place] OBGYFany [address] [employer] [address] [place] [address] Hemalatha Fatima LPN [address] [employer] [place] [id number] RECURRENT VAGINITIS (HTRX) Social History Tobacco Use [...] AM EDT Routine NOMRuth Robersonue OBGYN [address] [facility] [place] [address] Henok Lopez, DO [address] [facility] [place] [address] 12/16/2025 2:00 PM EST Office Visit [facility]S Michelle OBGYN [address] [facility] [place] [address] Henok Lopez, DO [address] [facility] [place] [address] documented as of this encounter Visit Diagnoses Not on filedocumented in this encounter Care Teams Book Mender Relationship Specialty Start Date End Date Radha Calix PA PCP - [facility] Diana FRENCH DRAWER 05/14/24 documented as of this encounter
--- OUTSIDE RECORDS SUMMARY | 2025-08-04 18:31 | XMS_ITS | Encounter Summary ---
Author Organization [facility] Address [address] [facility] [place] [address] Care Team Providers Care Director Integrated Name Role Phone Radha Calix Unavailable Encounter Details Date Type Department Care Team (Late Contact Info) Description 02/07/2025 Abstract MANDEEP HERNANDEZ [address] [place] [address] Henok Lopez DO [address] [place], [place] [address] Social History Tobacco Use Types Packs/Day Years [...] EDT Routine MANDEEP HERNANDEZ [address] [place] [phone] Henok Lopez DO [address] [place], [facility] 12/16/2025 2:00 PM EST Office Visit MANDEEP BRADLEYGYN [address] [facility] [place] [address] Henok Lopez DO [address] [facility] [place] [address] documented as of this encounter Visit Diagnoses Not on filedocumented in this encounter Care Teams Director Integrated Relationship Specialty Start Date End Date Radha Calix PA PCP - NOMRuth Ortiz BUMBOATER 05/14/24 documented as of this encounter
--- OUTSIDE RECORDS SUMMARY | 2025-08-04 18:31 | XMS_ITS | Encounter Summary ---
Author Organization [facility] Address [address] [facility] [place] [address] Care Team Providers Care Denture Finisher Name Role Phone Radha Calix Unavailable Encounter Details Date Type Department Care Team (Late Contact Info) Description 05/31/2025 Abstract MANDEEP HERNANDEZ [address] [place] [address] Henok Lopez DO [address] [place], [facility]11 Social [...] EDT Routine MANDEEP HERNANDEZ [address] [place] [address] Henok Lopez DO [address] [place] [address] 12/16/2025 2:00 PM EST Office Visit MANDEEP BRADLEYGYN [address] [facility] [place] [phone] Henok Lopez DO [address] [facility] [place] [address] documented as of this encounter Visit Diagnoses Not on filedocumented in this encounter Care Teams Denture Finisher Relationship Specialty Start Date End Date Radha Calix PA PCP - NOMRuth Ortiz OFFICE NURSE PRACTITIONER 05/14/24 documented as of this encounter
--- OUTSIDE RECORDS SUMMARY | 2025-08-04 18:31 | XMS_ITS | Encounter Summary ---
Author Organization [employer] Address [id number] [address] [place] [address] Care Team Providers Care Training Administrator Name Role Phone Fabiana Sandra APRN-VISUAL EDUCATION DIRECTOR Primary Care Provid er Encounter Details Date Type Department Care Team (Late st Contact Info) Description 07/05/2024 Orders Only [facility] Internal [facility] - Family Medicine [address] [facility] [address] Ellie Ruvalcaba CMA Epigastric pain; Right upper [...] Date Recorded Total Score 0 03/12/2024 [facility] Occupat ional Health - Occupational Stress [...] documented as of this encounter Care Teams Training Administrator Relationship Specialty Start Date End Date Fabiana Sandra APRN-CNP PCP - General Family Medicine 10/16/19 documented as of this encounter
--- OUTSIDE RECORDS SUMMARY | 2025-08-04 18:31 | XMS_ITS | Encounter Summary ---
Author Organization [facility] Address [address] [place] [facility] [address] Care Team Providers Care Respooler Name Role Phone CalixRadha Unavailable [phone] Encounter Details Date Type Department Care Team (Late Contact Info) Description 12/24/2024 Orders Only NOMRuth HERNANDEZ [address] [place] [address] Ophelia Barros LPN [address] [employer] [facility] Al[place], [place] [address] Social History Tobacco Use Types Packs/Day Years [...] 10:50 AM EDT Routine NOMRuth HERNANDEZ [address] [place] [address] Henok Lopez DO [address] [place], [place] [phone] 12/16/2025 2:00 PM EST Office Visit NOMRuth HERNANDEZ [address] [facility] [address] Henok Lopez, DO [address] [place] [address] [place] [address] documented as of this encounter Procedures Procedure Name Priority Date/Time Associated Diagnosis Comments PAP SMEAR Routine 12/11/2024 12:00 AM EST documented in this encounter Results * Pap Smear (12/11/2024 12:00 AM EST) Swab Cervical swab / Unknown John Nurse [facility] Bcp Ob LAB CYTOLOGY ORDERABLES Final Result EXTERNAL LAB documented in this encounter Visit Diagnoses Not on filedocumented in this encounter Care Teams Respooler Relationship Specialty Start Date End Date Radha Calix PA PCP - [facility] Diana BURDEN 05/14/24 documented as of this encounter
--- OUTSIDE RECORDS SUMMARY | 2025-08-04 18:32 | XMS_ITS | CCD ---
Author Organization [facility] Care Team Providers Care Certified Financial Planner Name Role Phone JOHN, DR TRAN Admitting [...] Primary Care Unavailable Radha Dickerson Unavailable Sandra STONE GRADER-SANITATION INSPECTOR, Matt J Primary Care [facility] [place] er Rahda Dickerson Unavailable [phone] CHELSEA LOPEZ Attending Unavailable CHELSEA LOPEZ Attending [...] (1 source) Cephalexin Drug Allergy 2 [facility] Repository (20 sources) Cephalexin; Translations: [...] US OB BPP W NON-STRESS on 07-31-2025 [place] [address] Ultrasound Report Signed Patient: TARA BRUNO MR#: [id number] : 1995 Acct:[id number] Age/Sex: 30 / F ADM Date: 07/31/25 Loc: [facility] 250-[address]: Jo Ann Patino Ordering Physician: Jo Ann Patino Date of Service: 07/31/25 Procedure(s): US OB BPP w non-stress Accession Number(s): [id number] cc: MATT SANDRA ; Jo Ann Patino The [place] [id number] Patient Name: TARA BRUNO MRN: [id number]:[id number] date: 1995 Sex: F Assigned Patient Location: [facility] Current Patient Location: [facility] Accession/Order Number: [id number] Exam Date: 07/31/2025 10:05 Report Date: 07/31/2025 [...] Kuo M.D. 07/31/2025 11:26 AM Dictation Location: [place]. Electronically authenticated by: [id number] Y Date: 07/31/2025 11:26 Dictated By: Audrey Kuo M.D. Signed By: 07/31/25 1129 DD/ 1126 TD/TT: Manager Heart: [facility] Radiology, Radiologist, - 07/31/2025 [place] [address] Ultrasound Report Signed Patient: TARA BRUNO MR#: [id number] : 1995 Acct:[id number] Age/Sex: 30 / F ADM Date: 07/31/25 Loc: [facility] 250-[address]: Jo Ann Patino Ordering Physician: Jo Ann Patino Date of Service: 07/31/25 Procedure(s): US OB BPP w non-stress Accession Number(s): [id number] cc: MATT SANDRA Kristina [place] [address] Patient Name: TARA BRUNO MRN: [facility]:[id number] date: 1995 Sex: F Assigned Patient Location: [facility] Current Patient Location: [facility] Accession/Order Number: [id number] Exam Date: 07/31/2025 10:05 Report Date: 07/31/2025 [...] Kuo M.D. 07/31/2025 11:26 AM Dictation Location: [place]. Electronically authenticated by: [id number] Y Date: 07/31/2025 11:26 Dictated By: Audrey Kuo M.D. Signed By: 07/31/25 1129 DD/ 1126 TD/TT: Manager Heart: [facility] Radiology Study observation (narrative) [facility] US OB BPP W NON-STRESS Ordered By: Radiologist Radiology on 07-31-2025 [facility] Work Phone: US OB FOLLOW UP TRANSABDOMIN [...] UA Negative Negative - 4(70) +++ mg/dL [facility] Healthcare Work Phone: Blood, UA Positive Negative - 50 Abhi/mcL [facility] Healthcare Work Phone: Clarity, UA Clear [facility] Work Phone: Color, UA Yellow [facility] Healthcare Work Phone: Glucose, UA Negative Negative - 1999(110) ++++ mg/dL [facility] Work Phone: Interpretation and review of laboratory results Normal [facility] Work Phone: Ketones, UA Negative Negative - 160(16) ++++ mg/dL [facility] Work Phone: Leukocytes, UA Negative Negative - 500+++ Pura/mcL [facility] Work Phone: Nitrite, UA Positive Negative - Positive [facility] Work Phone: pH, UA 1 5 - 9 [facility] Work Phone: Protein, UA Negative Negative - 1999(20) ++++ mg/dL [facility] Work Phone: Spec Grav, UA 6.5 1 - 1.03 [facility] Work Phone: Urobilinogen, UA 1.0 0.2 - 12 mg/dL [facility] Healthcare Work Phone: [facility] Work Phone: US OB BPP W NON-STRESS on 07-24-[address] [address] Ultrasound Report Signed Patient: TARA BRUNO MR#: [id number] : 1995 Acct:[id number] Age/Sex: 30 / F ADM Date: 07/24/25 Loc: US Attending Dr: Jo Ann Patino Ordering Physician: Jo Ann Patino Date of Service: 07/24/25 Procedure(s): US OB BPP w non-stress Accession Number(s): [id number] cc: MATT SANDRA Kristina [place] [address] Patient Name: TARA BRUNO MRN: [facility]:[id number] date: 1995 Sex: F Assigned Patient Location: [facility] Current Patient Location: Accession/Order Number: [id number] Exam Date: 07/24/2025 10:02 Report Date: 07/24/2025 11:09 At the request of: JO ANN PATINO Procedure: US OB BPP w non-stress BIOPHYSICAL PROFILE: CLINICAL INFORMATION: Excessive growth COMPARISON: 07/17/2025 There is a single live intrauterine gestation in cephalic presentation. The reported gestational age is 35 weeks 3 days. The heart rate [id number] beats per minute. FINDINGS: TONE: 1 or [...] Kuo M.D. 07/24/2025 11:09 AM Dictation Location: [place] [address] Electronically authenticated by: [id number] Y Date: 07/24/2025 11:09 Dictated By: Audrey Kuo M.D. Signed By: 07/24/25 1111 DD/ 1109 TD/TT: Manager Heart: [facility] Radiology, Radiologist, - 07/24/2025 [place] [address] Ultrasound Report Signed Patient: TARA BRUNO MR#: [id number] : 1995 Acct:[id number] Age/Sex: 30 / F ADM Date: 07/24/25 Loc: US Attending Dr: Jo Ann Patino Ordering Physician: Jo Ann Patino Date of Service: 07/24/25 Procedure(s): US OB BPP w non-stress Accession Number(s): [id number] cc: MATT SANDRA ; Jo Ann Patino [place] [address] Patient Name: TARA BRUNO MRN: [id number] date: 1995 Sex: F Assigned Patient Location: [facility] Current Patient Location: Accession/Order Number: [id number] Exam Date: 07/24/2025 10:02 Report Date: 07/24/2025 11:09 At the request of: JO ANN PATINO Procedure: US OB BPP w non-stress BIOPHYSICAL PROFILE: CLINICAL INFORMATION: Excessive growth COMPARISON: 07/17/2025 There is a single live intrauterine gestation in cephalic presentation. The reported gestational age is 35 weeks 3 days. The heart rate [id number] beats per minute. FINDINGS: TONE: 1 or [...] Kuo M.D. 07/24/2025 11:09 AM Dictation Location: [place] [address] Electronically authenticated by: [id number] Y Date: 07/24/2025 11:09 Dictated By: Audrey Kuo M.D. Signed By: 07/24/25 1111 DD/ 1109 TD/TT: Manager Heart: [facility] Radiology Study observation (narrative) [facility] US OB BPP W NON-STRESS Ordered By: Radiologist Radiology on 07-24-2025 [facility] Work Phone: US OB BPP W NON-STRESS on 07-17-2025 [place] [address] Ultrasound Report Signed Patient: TARA BRUNO MR#: [id number] : 1995 Acct:[id number] Age/Sex: 30 / F ADM Date: 07/17/25 Loc: [facility] 251-[address]: Jo Ann Patino Ordering Physician: Jo Ann Patino Date of Service: 07/17/25 Procedure(s): US OB BPP w non-stress Accession Number(s): [id number] cc: MATT SANDRA Kristina [place] [id number] Patient Name: TARA BRUNO MRN: [id number] date: 1995 Sex: F Assigned Patient Location: [facility] Current Patient Location: [facility] Accession/Order Number: [id number] Exam Date: 07/17/2025 15:03 Report Date: 07/17/2025 15:34 At the request of: JO ANN PATINO Procedure: US OB BPP w non-stress Biophysical profile. Reason for exam: Excessive growth COMPARISON: None TECHNIQUE: Transabdominal imaging of the gravid uterus was obtained. FINDINGS: The java sybase developer reports a BPP of 8 out of 8. BENNETT is normal at 15.6 cm. heart rate 145 bpm. US/US OB BPP w non-stress IMPRESSION: BPP 8 out of 8. Impression dictated by: Aaron Acevedo Jr., D.O. 07/17/2025 3:34 PM Dictation Location: [place] [address] Electronically authenticated by: [id number] Y Date: 07/17/2025 15:34 Dictated By: Aaron Acevedo M.D. Signed By: 07/17/25 1537 DD/ 33 TD/TT: Manager Heart: [facility] Radiology, Radiologist, - 07/17/2025 [place] [address] Ultrasound Report Signed Patient: TARA BRUNO MR#: [id number] : 1995 Acct:[id number] Age/Sex: 30 / F ADM Date: 07/17/25 Loc: [facility] 251-[address]: Jo Ann Patino Ordering Physician: Jo Ann Patino Date of Service: 07/17/25 Procedure(s): US OB BPP w non-stress Accession Number(s): [id number] cc: MATT SANDRA Kristina [place] [address] Patient Name: TARA BRUNO MRN: [facility]:[id number] date: 1995 Sex: F Assigned Patient Location: [facility] Current Patient Location: [facility] Accession/Order Number: [id number] Exam Date: 07/17/2025 15:03 Report Date: 07/17/2025 15:34 At the request of: JO ANN PATINO Procedure: US OB BPP w non-stress Biophysical profile. Reason for exam: Excessive growth COMPARISON: None TECHNIQUE: Transabdominal imaging of the gravid uterus was obtained. FINDINGS: The java sybase developer reports a BPP of 8 out of 8. BENNETT is normal at 15.6 cm. heart rate 145 bpm. US/US OB BPP w non-stress IMPRESSION: BPP 8 out of 8. Impression dictated by: Aaron Acevedo Jr., D.O. 07/17/2025 3:34 PM Dictation Location: [place] [address] Electronically authenticated by: [id number] Y Date: 07/17/2025 15:34 Dictated By: Aaron Acevedo M.D. Signed By: 07/17/25 1537 DD/ 1534 TD/TT: Manager Heart: [facility] Radiology Study observation (narrative) [facility] US OB BPP W NON-STRESS Ordered By: Radiologist Radiology on 07-17-2025 [facility] Work Phone: US OB FOLLOW UP [...] UA Negative Negative - 4(70) +++ mg/dL [facility] Blood, UA Positive Negative - 50 Abhi/mcL [facility] Clarity, UA Clear [facility] Color, UA Yellow [facility] Glucose, UA Negative Negative - 2000(110) ++++ mg/dL [facility] Interpretation and review of laboratory results Abnormal [facility] Ketones, UA Negative Negative - 160(16) ++++ mg/dL [facility] Leukocytes, UA Negative Negative - 500+++ Pura/mcL [facility] Nitrite, UA Negative Negative - Positive [facility] pH, UA 7 5 - 9 [facility] Protein, UA Negative Negative - 2000(20) ++++ mg/dL [facility] Spec Grav, UA 1.005 1 - 1.03 [facility] Urobilinogen, UA 1.0 0.2 - 12 mg/dL [facility] Urinalysis macro (dipstick) panel (U)on 06-26-2025 Bilirubin, UA Negative Negative - 4(70) +++ mg/dL [facility] Blood, UA Positive Negative - 50 Bahi/mcL [facility] Comment on above: Trace Clarity, UA Clear [facility] Color, UA Yellow [facility] Glucose, UA Negative Negative - 2000(110) ++++ mg/dL [facility] Interpretation and review of laboratory results Abnormal [facility] Ketones, UA Positive Negative - 160(16) ++++ mg/dL [facility] Comment on above: Trace Leukocytes, UA Negative Negative - 500+++ Pura/mcL [facility] Nitrite, UA Negative Negative - Positive [facility] pH, UA 6 5 - 9 [facility] Protein, UA Trace Negative - 2000(20) ++++ mg/dL [facility] Spec Grav, UA 1.02 1 - 1.03 [facility] Urobilinogen, UA 0.2 0.2 - 12 mg/dL [facility] US OB FOLLOW UP TRANSABDOMIN AL [...] PHD at 12-Jun-2025 07:34:42 AM [facility] Normal Not Available Comment on above: Order Comment: US OB SCAN FOR GROWTH Estimated Date of Delivery: 08/25/25 Gestational Age as of 05/29/2025: 27w3d Urinalysis macro (dipstick) panel (U)on 06-11-2025 Bilirubin, UA Negative Negative - 4(70) +++ mg/dL [facility] Blood, UA Positive Negative - 50 Abhi/mcL [facility] Comment on above: Trace Clarity, UA Clear [facility] Color, UA Yellow [facility] Glucose, UA Negative Negative - 1999(110) ++++ mg/dL [facility] Interpretation and review of laboratory results Abnormal [facility] Ketones, UA Positive Negative - 160(16) ++++ mg/dL [facility] Comment on above: Trace Leukocytes, UA Negative Negative - 500+++ Pura/mcL [facility] Nitrite, UA Negative Negative - Positive [facility] pH, UA 6 5 - 9 [facility] Protein, UA Negative Negative - 2000(20) ++++ mg/dL [facility] Spec Grav, UA 1.015 1 - 1.03 [facility] Urobilinogen, UA 0.2 0.2 - 12 mg/dL [facility] ALL CBC WITH AUTO DIFFon BASOPHILS ABSOLUTE AUTO 0 N [facility] Basophils/100 WBC (Bld) 0.2 % 0.2 - 2.0 % [facility] Eosinophils/100 WBC (Bld) 0.9 % 0.9 - 7.0 % [facility] Erythrocyte distribution width (RBC) [Ratio] 13 % 11.0 - 15.0 % [facility] Hematocrit (Bld) [Volume fraction] 30.1 % Low 36.0 - 48.0 % [facility] Hemoglobin (Bld) [Mass/Vol] 10 g/dL Low 12.0 - 16.0 g/dL [facility] IMMATURE GRANULOCYTES ABS AUTO 0.[address] [facility] Immature granulocytes/100 WBC (Bld) 1.7 % High 0.0 - 0.5 % [facility] Interpretation and review of laboratory results Abnormal [facility] LYMPHOCYTES ABSOLUTE AUTO 1.5 [facility] Lymphocytes/100 WBC (Bld) 15.2 % Low 20.5 - 60.0 % [facility] MCH (RBC) [Entitic mass] 29.2 pg 26.7 - 34.[address] [facility] MCHC (RBC) [Mass/Vol] 33.2 g/dL 29.9 - 35.2 g/dL [facility] MCV (RBC) [Entitic vol] 88 fL 81.0 - 99.[address] [facility] MONOCYTES ABSOLUTE AUTO 0.5 N [facility] Monocytes/100 WBC (Bld) 5.4 % 1.7 - 12.0 % [facility] NEUTROPHILS ABSOLUTE AUTO 7.[address] [facility] Neutrophils/100 WBC (Bld) 76.6 % High 43.0 - 75.0 % [facility] Platelet mean volume (Bld) [Entitic vol] 9.1 fL Low 9.5 - 13.[address] [facility] TBH EO # 0.1 [facility] TB PLT 176 [facility] RBC 3.42 Low [facility] WBC 9.7 [facility] Urinalysis macro (dipstick) panel (U)on 05-29-2025 Bilirubin, UA Negative Negative - 4(70) +++ mg/dL [facility] Blood, UA Positive Negative - 50 Abhi/mcL [facility] Comment on above: trace Clarity, UA Clear [facility] Color, UA Yellow [facility] Glucose, UA Positive Negative - 2000(110) ++++ mg/dL [facility] Comment on above: 100 Interpretation and review of laboratory results Abnormal [facility] Ketones, UA Negative Negative - 160(16) ++++ mg/dL [facility] Leukocytes, UA Negative Negative - 500+++ Pura/mcL [facility] Nitrite, UA Negative Negative - Positive [facility] pH, UA 6 5 - 9 [facility] Protein, UA Negative Negative - 2000(20) ++++ mg/dL [facility] Spec Grav, UA 1.01 1 - 1.03 [facility] Urobilinogen, UA 0.2 0.2 - 12 mg/dL [facility] Urinalysis macro (dipstick) panel (U)on 05-02-2025 Bilirubin, UA Negative Negative - 4(70) +++ mg/dL [facility] Blood, UA Positive Negative - 50 Abhi/mcL [facility] Comment on above: small Clarity, UA Clear [facility] Color, UA Yellow [facility] Glucose, UA Positive Negative - 1999(110) ++++ mg/dL [facility] Comment on above: 100mg/dL Interpretation and review of laboratory results Abnormal [facility] Ketones, UA Negative Negative - 160(16) ++++ mg/dL [facility] Leukocytes, UA Negative Negative - 500+++ Pura/mcL [facility] Nitrite, UA Negative Negative - Positive [facility] pH, UA 6 5 - 9 [facility] Protein, UA Positive Negative - 1999(20) ++++ mg/dL [facility] Comment on above: 30mg/dL Spec Grav, UA 1.03 1 - 1.03 [facility] Urobilinogen, UA 0.2 0.2 - 12 mg/dL [facility] No Panel InformationOrdered By: Radiologist Radiology on 04-10-2025 [facility] Work Phone: No Panel Informationon 04-10 Radiology Study observation (narrative) [facility] US OB ANATOMYon 04-10-2025 [place] [address] Ultrasound Report Signed Patient: TARA BRUNO MR#: [id number] : 1995 Acct:[id number] Age/Sex: 30 / F ADM Date: 04/10/25 Loc: US Attending Dr: Chelsea Lopez D.O. Ordering Physician: Chelsea Lopez D.O. Date of Service: 04/10/25 Procedure(s): US OB anatomy Accession Number(s): [id number] cc: MATT SANDRA ; Chelsea Lopez D.O. [place] [id number] Patient Name: TARA BRUNO MRN: [facility]:[id number] date: 1995 Sex: F Assigned Patient Location: Current Patient Location: Accession/Order Number: [id number] Exam Date: 04/10/2025 16:00 Report Date: 04/10/2025 [...] Wynn M.D. 04/10/2025 4:04 PM Dictation Location: [place] [address] Electronically authenticated by: [id number] Y Date: 04/10/2025 16:04 Dictated By: Ashish Wynn D.O. Signed By: 04/10/25 1607 DD/ 1604 TD/TT: Manager Heart: [facility] Radiology, Radiologist, - 04/10/2025 [place] [address] Ultrasound Report Signed Patient: TARA BRUNO MR#: [id number] : 1995 Acct:[id number] Age/Sex: 30 / F ADM Date: 04/10/25 Loc: US Attending Dr: Chelsea Lopez D.O. Ordering Physician: Chelsea Lopez D.O. Date of Service: 04/10/25 Procedure(s): US OB anatomy Accession Number(s): [id number] cc: MATT SANDRA ; Chelsea Lopez D.O. [place] [id number] Patient Name: TARA BRUNO MRN: [facility]:[id number] date: 1995 Sex: F Assigned Patient Location: US Current Patient Location: US Accession/Order Number: [id number] Exam Date: 04/10/2025 16:00 Report Date: 04/10/2025 [...] Wynn M.D. 04/10/2025 4:04 PM Dictation Location: [employer] Electronically authenticated by: [id number] Y Date: 04/10/2025 16:04 Dictated By: Ashish Wynn D.O. Signed By: 04/10/25 1607 DD/ 1604 TD/TT: Manager Heart: [facility] US OB CERVICAL LENGTHon 03-15 [place] [address] Ultrasound Report Signed Patient: TARA BRUNO MR#: [id number] : 1995 Acct:[id number] Age/Sex: 30 / F ADM Date: 04/10/25 Loc: US Attending Dr: Chelsea Lopez D.O. Ordering Physician: Chelsea Lopez D.O. Date of Service: 04/10/25 Procedure(s): US OB cervical length Accession Number(s): [id number] cc: MATT SANDRA ; Chelsea Lopez D.O. [place] [id number] Patient Name: TARA BRUNO MRN: [facility]:[id number] date: 1995 Sex: F Assigned Patient Location: US Current Patient Location: US Accession/Order Number: [id number] Exam Date: 04/10/2025 16:04 Report Date: 04/10/2025 16:04 At the request of: CHELSEA LOPEZ DO Procedure: US OB cervical length Obstetrical ultrasound to assess for cervical length Cervical length 3.9 cm. Os closed. US/US OB cervical length IMPRESSION: Cervical length 3.9 cm. Impression dictated by: Ashish Wynn M.D. 04/10/2025 4:04 PM Dictation Location: [employer] Electronically authenticated by: [id number] Y Date: 04/10/2025 16:04 Dictated By: Ashish Wynn D.O. Signed By: 04/10/251606 DD/ 03 TD/TT: Manager Heart: [facility] Radiology, Radiologist, - 04/10/2025 [place] [address] Ultrasound Report Signed Patient: TARA BRUNO MR#: [id number] : 1995 Acct:[id number] Age/Sex: 30 / F ADM Date: 04/10/25 Loc: US Attending Dr: Chelsea Lopez D.O. Ordering Physician: Chelsea Lopez D.O. Date of Service: 04/10/25 Procedure(s): US OB cervical length Accession Number(s): [id number] cc: MATT SANDRA ; Chelsea Lopez D.O. [place] [phone] Patient Name: TARA BRUNO MRN: [facility]:[id number] date: 1995 Sex: F Assigned Patient Location: US Current Patient Location: US Accession/Order Number: [id number] Exam Date: 04/10/2025 16:04 Report Date: 04/10/2025 16:04 At the request of: CHELSEA LOPEZ DO Procedure: US OB cervical length Obstetrical ultrasound to assess for cervical length Cervical length 3.9 cm. Os closed. US/US OB cervical length IMPRESSION: Cervical length 3.9 cm. Impression dictated by: Ashish Wynn M.D. 04/10/2025 4:04 PM Dictation Location: [place] [address] Electronically authenticated by: [id number] Y Date: 04/10/2025 16:04 Dictated By: Ashish Wynn D.O. Signed By: 04/10/251606 DD/ 03 TD/TT: Manager Heart: [facility] RECURRENT VAGINITIS (HTRX)on 04-04-2025 ATOPOBIUM VAGINAE 27.45 Abnormal [facility] ATOPOBIUM VAGINAE Detected Abnormal [facility] BVAB 2,3 (BACTERIAL VAGINOSIS ASSOCIATED BACTERIA 2, 3); MOBILUNCUS SPP 17.[address] [facility] BVAB 2,3 (BACTERIAL VAGINOSIS ASSOCIATED BACTERIA 2, 3); MOBILUNCUS SPP Detected Abnormal [facility] AYSHA ALBICANS, PARAPSILOSIS, TROPICALIS 0 [facility] AYSHA ALBICANS, PARAPSILOSIS, TROPICALIS Not detected [facility] AYSHA GLABRATA 0 [facility] AYSHA GLABRATA Not [facility] AYSHA KRUSEI 16.514 Abnormal [facility] AYSHA KRUSEI Detected Abnormal [facility] CHLAMYDIA TRACHOMATIS 0 [facility] CHLAMYDIA TRACHOMATIS Not detected N [facility] ERMB, C; MEFA 22.[address] [facility] ERMB, C; MEFA Detected Abnormal [facility] GARDNERELLA VAGINALIS 26.666 Abnormal [facility] GARDNERELLA VAGINALIS Detected Abnormal [facility] Interpretation and review of laboratory results Abnormal [facility] MEGASPHAERA (TYPES 1, 2) 21.[address] [facility] MEGASPHAERA (TYPES 1, 2) Detected Abnormal [facility] MYCOPLASMA GENITALIUM 0 [facility] MYCOPLASMA GENITALIUM Not detected N S [facility] NEISSERIA GONORRHOEAE 0 [facility] NEISSERIA GONORRHOEAE Not detected N [facility] TET B, TET M 20.[address] [facility] TET B, TET M Detected Abnormal [facility] TRICHOMONAS VAGINALIS 0 [facility] S [facility] TRICHOMONAS VAGINALIS Not detected N [facility] Urinalysis macro (dipstick) panel (U)on 04-03-2025 Bilirubin, UA Negative Negative - 4(70) +++ mg/dL [facility] Blood, UA Positive Negative - 50 Abhi/mcL [facility] Comment on above: trace Clarity, UA Clear [facility] Color, UA Yellow [facility] Glucose, UA Positive Negative - 1999(110) ++++ mg/dL [facility] Comment on above: 100 Interpretation and review of laboratory results Abnormal [facility] Ketones, UA Negative Negative - 160(16) ++++ mg/dL [facility] Leukocytes, UA Positive Negative - 500+++ Pura/mcL [facility] Comment on above: small Nitrite, UA Negative Negative - Positive [facility] pH, UA 6 5 - 9 [facility] Protein, UA Trace Negative - 2000(20) ++++ mg/dL [facility] Spec Grav, UA 1.02 1 - 1.03 [facility] Urobilinogen, UA 0.2 0.2 - 12 mg/dL [facility] Urinalysis macro (dipstick) panel (U)on 02-26-2025 Bilirubin, UA Negative Negative - 4(70) +++ mg/dL [facility] Blood, UA Negative Negative - 50 Abhi/mcL [facility] Clarity, UA Clear [facility] Color, UA Yellow [facility] Glucose, UA Negative Negative - 2000(110) ++++ mg/dL [facility] Interpretation and review of laboratory results Normal [facility] Ketones, UA Negative Negative - 160(16) ++++ mg/dL [facility] Leukocytes, UA Negative Negative - 500+++ Pura/mcL [facility] Nitrite, UA Negative Negative - Positive [facility] pH, UA 6 5 - 9 [facility] Protein, UA Negative Negative - 1999(20) ++++ mg/dL [facility] [facility] Spec Grav, UA 1.02 1 - 1.03 [facility] Urobilinogen, UA 0.2 0.2 - 12 mg/dL [facility] US OB TRANSVAGINALon 025 US OB [...] II, MD, PHD at 27-Jan-2025 07:45:14 AM [facility] Normal Not Available Comment on above: Order Comment: US OB TRANSVAGINAL No LMP recorded. IGP,APTIMA HPV,AGE GDLNon AGE GDLN ACOG TESTING Note . [facility] Comment on above: TESTS RESULT FLAG UN ITS REF RANGE LAB Clinician Provided Cytology Information Source.............Cervix;Endocervix No. of containers..01 ThinPrep Vial Age Algo ACOG Violetta... - 01 FLAG LEGEND: L-Low Normal,H-High Normal,LL-Alert Low,HH-Alert High <-Panic Low,>-Panic High,A-Abnormal,AA-Critical Abnormal Performed at: 01 =[address] [phone] Adriana Pfeiffer MD, IGP, RFX APTIMA HPV ASCU Note . [facility] Comment on above: TESTS RESULT FLAG UN ITS REF RANGE LAB DIAGNOSIS: 02 NEGATIVE FOR INTRAEPITHELIAL LESION OR MALIGNANCY. Specimen adequacy: 02 Satisfactory for evaluation. Endocervical and/or squamous metaplastic cells (endocervical component) are present. Performed by: 02 Erin Barbosa Cloth Stretcher ([facility]) . 02 Note: Note 02 The [...] <-Panic Low,>-Panic High,A-Abnormal,AA-Critical Abnormal Performed at: [address] [place] [address] Adriana Pfeiffer MD, Performed at: = - [facility] [id number] Confectionery Cooker: Adriana Pfeiffer MD, Phone: [phone] Performed at: [address] [id number] Confectionery Cooker: Adriana Pfeiffer MD, Phone: [phone] BRUSH-SPATULA CERVIX ENDOCERVIX [facility] POCT , urineon - Beta HCG ( test) Ql (U) Negative [facility] POCT Influenza A/Influenza B /SARS-COV-2 VeritorOrdered By: Ellie Ruvalcaba on 02-08-2024 External Poct Influenza A Antigen Negative [facility] External Poct Influenza B Antigen Negative [facility] SARS-CoV-2 (COVID-19) Ag IA.rapid Ql (Resp) Negative [facility] POCT rapid strep Aon 024 Internal Food Operations Manager Check Completed and Passed Yes [facility] Interpretation and review of laboratory results Normal [facility] S. pyogenes Ag IA Ql (Unsp spec) Negative Negative [facility] US PELVIS AND TRANSVAGon US PELVIS [...] by: SAHARA APODACA Date: 2022-12-01 08:05 Normal [facility] US PELVIS TRANSVAGon 022 US PELVIS [...] by: YAMEL GOMEZ Date: 2022-02-10 14:27 Normal [facility] Vital Signs Date Time Vital Sign Value Performing Clinician Facility 07-29-2025 11:39-0400 Body mass index (BMI) [Ratio] 35.1 kg/m2 Chelsea John DO Work Phone: [facility] 07-29-2025 11:39-0400 Body weight 89.87 kg Chelsea John DO Work Phone: [facility] 07-29-2025 11:39-0400 Diastolic blood pressure 68 mm[Hg] Chelsea John DO Work Phone: [facility] 07-29-2025 11:39-0400 Systolic blood pressure 110 mm[Hg] Chelsea Jonh DO Work Phone: [facility] 07-10-2025 14:13-0400 Body mass index (BMI) [Ratio] 34.9 kg/m2 Chelsea John DO Work Phone: [facility] 07-10-2025 14:13-0400 Body weight 89.36 kg Chelsea John DO Work Phone: [facility] 07-10-2025 14:13-0400 Diastolic blood pressure 74 mm[Hg] Chelsea John DO Work Phone: [facility] 07-10-2025 14:13-0400 Systolic blood pressure 122 mm[Hg] Chelsea John DO Work Phone: [facility] 06-26-2025 13:34-0400 Body mass index (BMI) [Ratio] 34.28 kg/m2 Josi Yulissa PA Work Phone: [facility] 06-26-2025 13:34-0400 Body weight 87.77 kg Josi Yulissa PA Work Phone: [facility] 06-26-2025 13:34-0400 Diastolic blood pressure 60 mm[Hg] Josi Phoenix PA Work Phone: [facility] 06-26-2025 13:34-0400 Systolic blood pressure 116 mm[Hg] Josi Phoenix PA Work Phone: [facility] 06-11-2025 14:47-0400 Body mass index (BMI) [Ratio] 34.06 kg/m2 Chelsea John DO Work Phone: [facility] 06-11-2025 14:47-0400 Body weight 87.2 kg Chelsea John DO Work Phone: [facility] 06-11-2025 14:47-0400 Diastolic blood pressure 68 mm[Hg] Chelsea John DO Work Phone: [facility] 06-11-2025 14:47-0400 Systolic blood pressure 122 mm[Hg] Chelsea John DO Work Phone: [facility] 05-29-2025 13:39-0400 Body mass index (BMI) [Ratio] 33.66 kg/m2 Josi Phoenix PA Work Phone: [facility] 05-29-2025 13:39-0400 Body weight 86.18 kg Josi Phoenix PA Work Phone: [facility] 05-29-2025 13:39-0400 Diastolic blood pressure 70 mm[Hg] Josi Phoenix PA Work Phone: [facility] 05-29-2025 13:39-0400 Systolic blood pressure 110 mm[Hg] Josi Yulissa PA Work Phone: [facility] 05-02-2025 09:09-0400 Body mass index (BMI) [Ratio] 32.42 kg/m2 Chelsea John DO Work Phone: [facility] 05-02-2025 09:09-0400 Body weight 83.01 kg Chelsea John DO Work Phone: [facility] 05-02-2025 09:09-0400 Diastolic blood pressure 64 mm[Hg] Chelsea John DO Work Phone: [facility] 05-02-2025 09:09-0400 Systolic blood pressure 102 mm[Hg] Chelsea John DO Work Phone: [facility] 04-03-2025 09:41-0400 Body mass index (BMI) [Ratio] 31 kg/m2 Josi Phoenix PA Work Phone: [facility] 04-03-2025 09:41-0400 Body weight 79.38 kg Josi Yulissa PA Work Phone: [facility] 04-03-2025 09:41-0400 Diastolic blood pressure 72 mm[Hg] Josi Phoenix PA Work Phone: [facility] 04-03-2025 09:41-0400 Systolic blood pressure 116 mm[Hg] Josi Yulissa PA Work Phone: [facility] 02-26-2025 09:50-0400 Body mass index (BMI) [Ratio] 29.94 kg/m2 Chelsea John DO Work Phone: [facility] 02-26-2025 09:50-0400 Body weight 76.66 kg Chelsea John DO Work Phone: [facility] 02-26-2025 09:50-0400 Diastolic blood pressure 76 mm[Hg] Chelsea John DO Work Phone: [facility] 02-26-2025 09:50-0400 Systolic blood pressure 110 mm[Hg] Chelsea John DO Work Phone: [facility] 12-11-2024 13:26-0500 Body mass index (BMI) [Ratio] 29.05 kg/m2 Chelsea John DO Work Phone: [facility] 12-11-2024 13:26-0500 Body weight 74.39 kg Chelsea Ojhn DO Work Phone: [facility] 12-11-2024 13:26-0500 Diastolic blood pressure 68 mm[Hg] Chelsea John DO Work Phone: [facility] 12-11-2024 13:26-0500 Systolic blood pressure 114 mm[Hg] Chelsea John DO Work Phone: [facility] 07-03-2024 15:11-0400 Body height 157.48 cm [facility] 07-03-2024 15:11-0400 Body mass index (BMI) [Ratio] 29.2 kg/m2 [facility] 07-03-2024 [id number] Body weight 72.57 kg [facility] 03-12-2024 11:21-0400 Body height 157.5 cm Matt Sandraloreta ALVAREZ-SANITATION INSPECTOR Work Phone: [facility] 03-12-2024 11:21-0400 Body mass index (BMI) [Ratio] 28.55 kg/m2 Matt Sandraloreta ALVAREZ-SANITATION INSPECTOR Work Phone: [facility] 03-12-2024 11:21-0400 Body temperature 98.1 [degF] Matt Sandra STONE GRADER-SANITATION INSPECTOR Work Phone: [facility] 03-12-2024 11:21-0400 Body weight 70.81 kg Matt Sandra STONE GRADER-SANITATION INSPECTOR Work Phone: [facility] [employer] [facility] 03-12-2024 11:21-0400 Diastolic blood pressure 68 mm[Hg] Matt Sandra STONE GRADER-SANITATION INSPECTOR Work Phone: [facility] 03-12-2024 11:21-0400 Heart rate 79 /min Matt Sandraloreta ALVAREZ-SANITATION INSPECTOR Work Phone: [facility] 03-12-2024 11:21-0400 Respiratory rate 20 /min Matt Sandra APRN-SANITATION INSPECTOR Work Phone: [facility] 03-12-2024 11:21-0400 SaO2% (BldA) [Mass fraction] 100 % Matt Sandra STONE GRADER-SANITATION INSPECTOR Work Phone: [facility] 03-12-2024 11:21-0400 Systolic blood pressure 110 mm[Hg] Matt Sandra STONE GRADER-SANITATION INSPECTOR Work Phone: [facility] 02-08-2024 11:53-0400 Body height 157.5 cm Cuco Ceron STONE GRADER-SANITATION INSPECTOR Work Phone: [facility] 02-08-2024 11:53-0400 Body mass index (BMI) [Ratio] 28.9 kg/m2 Cuco Ceron STONE GRADER-SANITATION INSPECTOR Work Phone: [facility] 02-08-2024 11:53-0400 Body temperature 98.2 [degF] Cuco Ceron STONE GRADER-SANITATION INSPECTOR Work Phone: [facility] 02-08-2024 11:53-0400 Body weight 71.67 kg Cuco Ceron STONE GRADER-SANITATION INSPECTOR Work Phone: [facility] 02-08-2024 11:53-0400 Diastolic blood pressure 68 mm[Hg] Cuco Ceron STONE GRADER-SANITATION INSPECTOR Work Phone: [facility] 02-08-2024 11:53-0400 Heart rate 97 /min Cucobradley Ceron STONE GRADER-SANITATION INSPECTOR Work Phone: [facility] [employer] [facility] 02-08-2024 11:53-0400 Respiratory rate 18 /min Cuco Ceron STONE GRADER-SANITATION INSPECTOR Work Phone: [facility] 02-08-2024 11:53-0400 SaO2% (BldA) [Mass fraction] 97 % Cucobradley Ceron STONE GRADER-SANITATION INSPECTOR Work Phone: [facility] 02-08-2024 11:53-0400 Systolic blood pressure 112 mm[Hg] Cuco Ceron APRN-SANITATION INSPECTOR Work Phone: [facility] [employer] 01-03-2024 10:16-0500 Body height 157.5 cm Matt Sandra APRN-SANITATION INSPECTOR [facility] 01-03-2024 10:16-0500 Body mass index (BMI) [Ratio] 29.23 kg/m2 Matt Sandra APRN-SANITATION INSPECTOR Work Phone: [facility] [employer] 01-03-2024 10:16-0500 Body temperature 97.3 [degF] Matt Sandra APRN-SANITATION INSPECTOR Work Phone: [facility] [employer] 01-03-2024 10:16-0500 Body weight 72.48 kg Matt Sandra APRN-SANITATION INSPECTOR Work Phone: [facility] [employer] 01-03-2024 10:16-0500 Diastolic blood pressure 58 mm[Hg] Matt Sandra APRN-SANITATION INSPECTOR Work Phone: [facility] [employer] 01-03-2024 10:16-0500 Heart rate 72 /min Matt Sandra APRN-SANITATION INSPECTOR Work Phone: [facility] [employer] 01-03-2024 10:16-0500 SaO2% (BldA) [Mass fraction] 99 % Matt Sandra APRN-SANITATION INSPECTOR Work Phone: [facility] [employer] 01-03-2024 10:16-0500 Systolic blood pressure 102 mm[Hg] Matt Sandra APRN-SANITATION INSPECTOR Work Phone: [facility] [employer] [facility] Encounters Encounter Date Encounter Type Care Provider Facility Start: 07-31-2025 End: 07-31-2025 Clinisync Result Encounter Jo Ann Patino NP Work Phone: [facility] Unsolicited Start: 07-31-2025 End: 07-31-2025 Clinisync Result Encounter Jo Ann Patino OVEN PRESS TENDER Work Phone: [facility] Unsolicited Start: 07-29-2025 End: 07-29-2025 Office outpatient visit 15 minutes Chelsea John DO Work Phone: [facility] Comment on above: Third trimester preg alejandro ([facility]); 36 weeks gestation of ([facility]) Start: 07-29-2025 End: 07-29-2025 ambulatory CHELSEA JOHN Not Available Start: 07-24-2025 End: 07-24-2025 Clinisync Result Encounter Jo Ann Scanlonerly OVEN PRESS TENDER Work Phone: [facility] Unsolicited Start: 07-24-2025 End: 07-24-2025 Clinisync Result Encounter Jo Ann Carey OVEN PRESS TENDER Work Phone: [facility] Unsolicited Start: 07-17-2025 End: 07-17-2025 Clinisync Result Encounter Jo Ann Carey OVEN PRESS TENDER Work Phone: [facility] Unsolicited Start: 07-17-2025 End: 07-17-2025 Clinisync Result Encounter Jo Ann Scanlonerly OVEN PRESS TENDER Work Phone: [facility] Unsolicited Start: 07-10-2025 End: 07-10-2025 Office outpatient visit 15 minutes Chelsea John DO Work Phone: [facility] Comment on above: Excessive grow th affecting management of in third trimester, single or unspecified fetus ([facility]) (Primary Dx); Third trimester ([facility]); 33 weeks gestation of ([facility]); Hematuria, unspecified type Start: 07-10-2025 End: 07-10-2025 ambulatory CHELSEA JOHN Not Available Start: 06-26-2025 End: 06-26-2025 Bamboo flowsheet Josi HERNANDEZ Work Phone: [facility] Start: 06-26-2025 End: 06-26-2025 Bamboo flowsheet Josi HERNANDEZ Work Phone: [facility] Start: 06-26-2025 End: 06-26-2025 Office outpatient visit 15 minutes Josi HERNANDEZ Work Phone: [facility] Comment on above: Third trimester preg alejandro ([facility]); 31 weeks gestation of ([facility]) Start: 06-26-2025 End: 06-26-2025 ambulatory JOSI DUENAS Not Available Start: 06-11-2025 End: 06-11-2025 ambulatory CHELSEA JOHN Not Available Start: 06-11-2025 End: 06-11-2025 Office outpatient visit 15 minutes Chelsea John DO Work Phone: [facility] Comment on above: Third trimester preg alejandro ([facility]); 29 weeks gestation of ([facility]); Anemia affecting in third trimester ([facility]); Excessive growth affecting management of , antepartum, single or unspecified fetus ([facility]) Start: 06-11-2025 End: 06-11-2025 ambulatory CHELSEA [...] incons istent with dates in second trimester ([facility]) (Primary Dx); Second trimester ([facility]); 27 weeks gestation of ([facility]) Start: 05-02-2025 End: 05-02-2025 Bamboo flowsheet [...] Diabetes mellitus sc reening; Second trimester ([facility]); 23 weeks gestation of ([facility]) Start: 04-10-2025 End: 04-10-2025 Clinisync Result Encounter Chelsea John DO Work Phone: [facility] External Department Unsolicited Start: 04-10-2025 End: 04-10-2025 Clinisync Result Encounter Chelsea John DO Work Phone: [facility] External Department Unsolicited Start: 04-03-2025 End: 04-03-2025 Bamboo flowsheet Josi HERNANDEZ Work Phone: [facility] Start: 04-03-2025 End: 04-04-2025 Bamboo flowsheet Josi HERNANDEZ Work Phone: [facility] Start: 04-03-2025 End: 04-04-2025 External Result Encounter Josi HERNANDEZ Work Phone: [facility] External Department Unsolicited Start: 04-03-2025 End: 04-03-2025 Office outpatient visit 15 minutes Josi HERNANDEZ Work Phone: [facility] Comment on above: Second trimester pre gnancy; 18 weeks gestation of ; Screening, , for anatomic survey; Screening examination for STI; Need for maternal serum alpha-protein (MSAFP) screening Start: 04-03-2025 End: 04-03-2025 ambulatory JOSI DUENAS Not Available Start: 02-26-2025 End: 02-26-2025 Bamboo flowsheet Chelsea John DO Work Phone: [facility] Start: 02-26-2025 End: 02-26-2025 Bamboo flowsheet Chelsea John DO Work Phone: [facility] Start: 02-26-2025 End: 02-26-2025 Office outpatient visit 15 minutes Chelsea John DO Work Phone: [facility] Comment on above: Second trimester pre gnancy; 12 weeks gestation of Start: 02-26-2025 End: 02-26-2025 ambulatory CHELSEA JOHN Not Available Start: 01-25-2025 End: 01-25-2025 ambulatory CHELSEA JOHN Not Available Start: 12-11-2024 End: 12-11-2024 Bamboo flowsheet Chelsea John DO Work Phone: [facility] Start: 12-11-2024 End: 12-17-2024 Bamboo flowsheet Chelsea John DO Work Phone: [facility] Start: 12-11-2024 End: 12-17-2024 Clinisync Result Encounter Chelsea John DO Work Phone: [facility] External Department Unsolicited Start: 12-11-2024 End: 12-11-2024 Patient encounter procedure Chelsea John DO Work Phone: [facility] Start: 12-11-2024 End: 12-11-2024 Periodic preventive med est patient 18-39 yrs Chelsea John DO Work Phone: [facility] Comment on above: Well woman exam with routine gynecological exam Start: 12-11-2024 End: 12-11-2024 ambulatory CHELSEA JOHN Not Available Start: 07-03-2024 End: 07-03-2024 ambulatory [facility] Work Phone: Start: 07-03-2024 End: 07-03-2024 Patient encounter procedure [facility] Work Phone: Start: 04-10-2024 Non-patient / Non-visit [facility] Work Phone: Start: 03-12-2024 End: 03-12-2024 ambulatory [facility] Start: 03-12-2024 End: 03-12-2024 Office outpatient visit 15 minutes Matt J Boaz STONE GRADER-SANITATION INSPECTOR Work Phone: [facility] Comment on above: Anxiety and depressi on (Primary Dx); Nausea; Syncope, unspecified syncope type Start: 02-27-2024 End: 02-28-2024 ambulatory [facility] josephine Start: 02-09-2024 Telephone encounter Mikala sultana [facility] Start: 02-08-2024 End: 02-08-2024 ambulatory [facility] Start: 02-08-2024 End: 02-08-2024 Office outpatient visit 15 minutes [facility] STONE GRADER-SANITATION INSPECTOR Work Phone: [facility] Comment on above: Viral upper respirat ory tract infection (Primary Dx); Chills; Epigastric pain; Syncope and collapse; Gastroesophageal reflux disease, unspecified whether esophagitis present Start: 01-03-2024 End: 01-03-2024 ambulatory [facility] Start: 01-03-2024 End: 01-03-2024 Office outpatient visit 15 minutes Matt Sandra STONE GRADER-SANITATION INSPECTOR Work Phone: [facility] Comment on above: Anxiety and depressi on (Primary Dx) Start: 12-01-2022 End: 12-01-[address] CHELSEA LOPEZ Facility:[facility] Start: 11-30-2022 End: 12-01-[address] CHELSEA LPOEZ Facility:[facility] Start: 02-10-2022 End: 02-11-[address] CHELSEA LOPEZ Facility:[facility] Start: 07-29-2017 End: 07-29-2017 Emergency department patient visit [facility] Procedures Date Procedure Procedure Detail Performing Clinician Start: 07-31-2025 OB BPP W NON-STRESS Jo Ann Patino OVEN PRESS TENDER Work Phone: Start: 07-29-2025 Urnls dip stick/tabl et rgnt non-auto w/o micrscp Chelsea John DO Work Phone: Start: 07-24-2025 US OB BPP W NON-STRESS Jo Ann Pulliamly OVEN PRESS TENDER Work Phone: Start: 07-17-2025 US OB BPP W NON-STRESS Jo Ann Pulliamly OVEN PRESS TENDER Work Phone: Start: 07-10-2025 Urnls dip stick/tabl [...] test visual color cmprsn meths Matt Sandra [facility] GRADERMechanology[facility] Work Phone: Start: 03-12-2024 Adult depression scr eening assessment Matt Sandra [facility] Work Phone: Start: 02-08-2024 Iaadiadoo streptococ cus group a Cuco Ceron [employer] Work Phone: Start: 02-08-2024 POCT INFLUENZA A/INF LUENZA B/SARS-COV-2 VERITOR [employer]uc[employer] Work Phone: Start: 02-08-2024 Adult depression scr eening assessment Cuco Pattonuch KuldatSANITATION INSPECTOR Work Phone: Start: 01-03-2024 Adult depression scr eening assessment Matt Ascencioillo [facility] Work Phone: Start: 08-09-2018 Microscopic observat ion [Identifier] in Cervix by Cyto stain Matt Sandra STONE GRADERMechanologyWE[facility] Work Phone: Plan of Treatment Date Care Activity Detail Author Start: 12-16-2025 End: 12-16-2025 Patient encounter procedure [facility] Start: 08-05-2025 End: 08-05-2025 Patient encounter procedure 08/05/2025 10:50 AM EDT Routine [facility] [address] [place] [address] Chelsea Lopez, DO [address] [place] [address] [facility] Start: 07-31-2025 End: 07-31-2025 Professional / ancillary services management 07/31/2025 9:30 AM EDT Ancillary Procedure [facility] [address] [place] [id number] [facility] Start: 07-29-2025 End: 07-29-2026 CULTURE, GROUP B STREP WITH SUSCEPTIBLITY CULTURE, GROUP B STREP WITH SUSCEPTIBLITY Lab Routine Third trimester ([facility]) Expected: 07/29/2025, Expires: 07/29/2026 [facility] Work Phone: Comment on above: Expected: 07/29/2025 , Expires: 07/29/2026 Start: 07-29-2025 End: 07-29-2025 Patient encounter procedure 07/29/2025 9:20 AM EDT Routine [facility] [place] [facility] [address] [place] [id number] Josi Duenas PA [address] [place] [address] [facility] Start: 07-15-2025 Influenza vaccination [facility] Start: 07-10-2025 End: 07-10-2025 Patient encounter procedure 07/10/2025 2:10 PM EDT Routine [facility] [place] [facility] [address] [place] [id number] Chelsea Lopez DO [address] [place] [address] [facility] Start: 07-10-2025 End: 01-10-2026 US biophysical profile w non stress test US biophysical profile w non stress test Imaging Routine Excessive growth affecting management of in third trimester, single or unspecified fetus ([facility]) Expected: 07/10/2025 (Approximate), Expires: 01/10/2026 [facility] [...] Procedure [facility] [address] [place] [id number] [facility] Start: 06-26-2025 End: 06-26-2025 Patient encounter procedure [facility] Comment on above: Arrived Start: 06-11-2025 End: 06-11-2025 Patient encounter procedure 06/11/2025 2:00 PM EDT Routine [facility] [address] [place] [phone] Chelsea Lopez, [address] [place] [address] [facility] Start: 06-11-2025 End: 10-12-2025 [...] Procedure [facility] [address] [place] [phone] [facility] Start: 05-29-2025 End: 09-29-2025 US for US OB follow up transabdominal approach Imaging Routine Size of fetus inconsistent with dates in second trimester ([facility]) Expected: 05/29/2025, Expires: 09/29/2025 [facility] Work Phone: Comment on above: Expected: 05/29/2025 , Expires: 09/29/2025 Start: 05-29-2025 End: 05-29-2025 Patient encounter procedure 05/29/2025 1:20 PM EDT Routine [facility] [address] [place] [address] Josi Duenas PA [address] [place] [address] [facility] Start: 05-02-2025 End: 05-02-2026 CBC panel - Blood by Automated count CBC Lab Routine Diabetes mellitus screening Expected: 05/02/2025 (Approximate), Expires: 05/02/2026 [facility] Work Phone: Comment on above: Expected: 05/02/2025 (Approximate), Expires: 05/02/2026 Start: 05-02-2025 End: 05-02-2026 Measurement of glucose 1 hour after glucose challenge for glucose tolerance test Glucose tolerance, 1 hour Lab Routine Diabetes mellitus screening Expected: 05/02/2025 (Approximate), Expires: 05/02/2026 [facility] Comment on above: Expected: 05/02/2025 (Approximate), Expires: 05/02/2026 Start: 05-02-2025 End: 05-02-2025 Patient encounter procedure 05/02/2025 8:50 AM EDT Routine [facility] [address] [place] [phone] Chelsea Lopez DO [address] [place], [place] [id number] [facility] Start: 04-03-2025 End: 05-04-2025 [...] Adult BMI Screening Adult BMI Screen ing [facility] Start: 03-12-2025 Depression Screening Depression Scre ening [facility] Start: 03-12-2025 Tobacco Screening Tobacco Screening [facility] Start: 02-26-2025 End: 02-26-2025 Patient encounter procedure 02/26/2025 9:50 AM EDT Routine [facility] [address] [place] [phone] Chelsea Lopez, DO [address] [place] [address] Arrived [facility] Comment on above: Arrived Start: 02-07-2025 Adult BMI Screening Adult BMI Screen ing [facility] Start: 02-07-2025 Depression Screening Depression Scre ening [facility] Start: 02-07-2025 Tobacco Screening Tobacco Screening [facility] Start: 01-03-2025 Adult BMI Follow Up Plan Adult BMI Follow Up Plan [facility] Start: 01-03-2025 Adult BMI Screening Adult BMI Screen ing [facility] Start: 01-03-2025 Depression Screening Depression Scre ening [facility] Start: 01-03-2025 Tobacco Screening Tobacco Screening [facility] Start: 12-11-2024 End: 12-11-2024 Patient encounter procedure 12/11/2024 1:20 PM EST Office Visit [facility] [address] [place] [address] Chelsea Lopez DO [address] [place] [address] Arrived [facility] Comment on above: Arrived Start: 07-15-2024 Influenza vaccination Influenza Vacc ine (#1) [facility] Start: 03-12-2024 End: 03-12-2024 Patient encounter procedure 03/12/2024 11:20 AM EDT [facility] - [facility] [address] [place] [address] Matt Sandra, STONE GRADER-SANITATION INSPECTOR [address] [place] [address] [facility] Internal Medicine - Family Medicine Start: 02-21-2024 End: 02-21-2024 Patient encounter procedure 02/21/2024 9:40 AM EDT Office Visit [facility] Internal Medicine - Family Medicine [address] [place] [address] Matt Sandra, STONE GRADER-SANITATION INSPECTOR [address] [place] [address] [facility] Internal Medicine - Family Medicine Start: 02-08-2024 End: 02-07-2025 Event monitor Event monitor Cardiac Services Routine Syncope and collapse Expected: 02/08/2024, Expires: 02/07/2025 [facility] Work Phone: Comment on above: Expected: 02/08/2024 , Expires: 02/07/2025 Start: 08-09-2021 Screening for malign ant neoplasm of cervix Pap Smear [facility] Start: 02-02-2007 DTaP,Tdap and Td Vaccines (6 - Tdap) DTaP,Tdap and Td Vaccines (6 - Tdap) [facility] Bacteria identified in Urine by Culture Urine culture Microbiology Routine Hematuria, unspecified type Ordered: 07/10/2025 [facility] Comment on above: Ordered: 07/10/2025 End: 03-12-2025 Basic metabolic 2000 panel - Serum or Plasma Basic Metabolic Panel Lab Routine Nausea 1 Occurrences starting 03/12/2024 until 03/12/2025 [facility] Comment on above: 1 Occurrences starti ng 03/12/2024 until 03/12/2025 End: 03-12-2025 CBC W Auto Differential panel - Blood CBC auto differential Lab Routine Nausea 1 Occurrences starting 03/12/2024 until 03/12/2025 [email or web address] Work Phone: Comment on above: 1 Occurrences starti ng 03/12/2024 until 03/12/2025 CHLAMYDIA TRACHOMATI S (GENITO/STI) CHLAMYDIA TRACHOMATIS (GENITO/STI) Lab Routine Screening examination for STI Ordered: 04/03/2025 [facility] Comment on above: Ordered: 04/03/2025 Cytology Cervical or vaginal smear or scraping study Pap Smear Pathology and Cytology Routine Well woman exam with routine gynecological exam Ordered: 12/11/2024 [facility] [employer] Work Phone: Comment on above: Ordered: 12/11/2024 Hepatic function panel [facility] Neisseria gonorrhoea e DNA [Presence] in Unspecified specimen by MARION with probe detection Neisseria gonorrhea DNA probe, direct Lab Routine Screening examination for STI Ordered: 04/03/2025 [facility] Comment on above: Ordered: 04/03/2025 SURESWAB(R) ADVANCED VAGINITIS PLUS, TMA SURESWAB(R) ADVANCED VAGINITIS PLUS, TMA Pathology and Cytology Routine Screening examination for STI Ordered: 04/03/2025 [facility] [employer] Work Phone: Comment on above: Ordered: 04/03/2025 US Abdomen limited [facility] Immunizations Immunization Date Immunization Notes Care Provider Maegan argueta 07-30-2002 diphtheria, tetanus toxoids and acellular pertussis vaccine Matt Sandra STONE GRADER-SANITATION INSPECTOR Work Phone: [facility] 07-30-2002 measles, mumps and rubella virus vaccine Matt Boaz STONE GRADER-[facility] Work Phone: [facility] 07-30-2002 poliovirus vaccine, inactivated Matt Sandra STONE GRADER-[facility] Work Phone: [facility] 06-14-1997 diphtheria, tetanus toxoids and acellular pertussis vaccine Matt Boaz STONE GRADER-[facility] Work Phone: [facility] 06-14-1997 haemophilus influenz ae type b vaccine, conjugate unspecified formulation Matt Sandra STONE GRADER-[facility] Work Phone: [facility] 06-14-1997 measles, mumps and rubella virus vaccine Matt Sandra STONE GRADER-[facility] Work Phone: [facility] 1996 diphtheria, tetanus toxoids and acellular pertussis vaccine Matt Sandra STONE GRADER-[facility] Work Phone: [facility] 1996 haemophilus influenz ae type b vaccine, conjugate unspecified formulation Matt Sandra STONE GRADER-[facility] Work Phone: [facility] 1996 hepatitis B vaccine, adult dosage Matt Boaz STONE GRADER-[facility] Work Phone: [facility] 1996 poliovirus vaccine, inactivated Matt Sandra STONE GRADER[facility] Work Phone: [facility] 1996 diphtheria, tetanus toxoids and acellular pertussis vaccine Matt Sandra STONE GRADER-[facility] Work Phone: [facility] 1996 haemophilus influenz ae type b vaccine, conjugate unspecified formulation Matt Sandra ST[employer] GRADER[facility] Work Phone: [facility] 1996 poliovirus vaccine, inactivated Matt Sandra STONE GRADER-[facility] Work Phone: [facility] 1996 diphtheria, tetanus toxoids and acellular pertussis vaccine Matt Sandra [facility] Work Phone: [facility] 1996 haemophilus influenz ae type b vaccine, conjugate unspecified formulation Matt Sandra [facility] Work Phone: [facility] 1996 hepatitis B vaccine, adult dosage Matt Sandra [facility] Work Phone: [facility] 1996 poliovirus vaccine, inactivated Matt [facility] Work Phone: [facility] 1996 hepatitis B vaccine, adult dosage Matt [facility] Work Phone: [facility] Payers Date Payer Category Payer Medicaid [id number] 2022 Medicaid [id number] 2017 Unknown [id number] 1996 Unknown [id number] 2.16.84 0.1.619551.3.579.2.593 1996 Unknown [id number] 2.16.84 0.1.220814.3.579.2.593 1996 Unknown [id number] 2.16.84 0.1.351665.3.579.2.593 1996 Unknown [id number] 2.16.8 40.1.731890.3.579.2.1286 1996 Unknown [id number] 2.16.8 40.1.173388.3.579.2.1286 1996 Unknown [id number] 2.16.8 40.1.367879.3.579.2.1286 1996 Unknown [id number] 2.16.8 40.1.963096.3.579.2.1286 1996 Unknown [id number] 2.16.8 40.1.625389.3.579.2.9 1996 Unknown [id number] 2.16.8 40.1.938549.3.579.2.9 1996 Unknown [id number] 2.16.8 40.1.960022.3.579.2.9 1996 Unknown [id number] 2.16.8 40.1.518405.3.579.2.1258 1996 Unknown [id number] 2.16.8 40.1.701439.3.579.2.1258 1996 Unknown [id number] 2.16.8 40.1.876359.3.579.2.1258 1996 Unknown [id number] 2.16.8 40.1.465107.3.579.2.9 1996 Unknown [id number] 2.16.8 40.1.518301.3.579.2.1258 1996 Unknown [id number] 2.16.8 40.1.675026.3.579.2.9 1996 Unknown [id number] 2.16.84 0.1.587577.3.579.2.1258 1996 Unknown [id number] 2.16.84 0.1.897779.3.579.2.9 1996 Unknown [id number] 2.16.84 0.1.145699.3.579.2.1258 1996 Unknown [id number] 2.16.84 0.1.411433.3.579.2.9 1996 Unknown [id number] 2.16.84 0.1.530308.3.579.2.1259 1959 Unknown [id number] Social History Date Type Detail Facility Start: 07-04-2023 End: 07-03-2024 Tobacco smoking status ALIS Never smoked tobacco (finding) [facility] Start: 1995 Sex Assigned At Female F [facility] Start: 07-04-2023 End: 01-03-2024 Tobacco use and exposure Smokeless tobacco non-user [facility] Start: 12-05-2023 End: 07-10-2025 Alcoholic beverage intake Lifetime non-drinker (finding) [facility] Start: 12-05-2023 End: 12-11-2024 History of Social function [facility] Start: 12-05-2023 End: 12-11-2024 Tobacco use panel [facility] Start: 1995 Sex assigned at Not on file P [facility] Start: 01-03-2024 End: 03-12-2024 Alcohol intake Current non-drinker of alcohol (finding) [facility] Do you belong to any clubs or organizations such as baptist groups, unions, fraternal or athletic groups, or school groups? No [facility] Are you now , , , , never or living with a partner? Never [facility] How often to you hav e a drink containing alcohol? Monthly or less [facility] How many standard dr inks containing alcohol do you have on a typical day? 1 or 2 [facility] How often do you hav e 6 or more drinks on 1 occasion? Less than monthly [facility] How hard is it for y ou to pay for the very basics like food, housing, medical care, and heating Somewhat hard [facility] Adolescent depressio n screening assessment 5 [facility] Do you feel stress - tense, restless, nervous, or anxious, or unable to sleep at night because your mind is troubled all the time - these days [OSQ] Rather much [facility] Start: 10-19-2019 Education 12 [facility] Start: 12-02-2024 [facility] [...] nursing note reviewed. Exam conducted with a dye range operator present. Vitals: Estimated body mass index is 35.1 kg/m as calculated from the following: Height as of 11/30/22: 5' 3 . Weight as of this encounter: 198 lb 1.9 oz. BP: 110/68 Patient's last menstrual period was 11/18/2024. ASSESSMENT & PLAN ICD-10-CM 1. Third trimester ([facility]) Z34.93 CULTURE, GROUP B STREP WITH SUSCEPTIBLITY CULTURE, GROUP B STREP WITH SUSCEPTIBLITY POCT urinalysis dipstick manually resulted 2. 36 weeks gestation of ([facility]) Z3A.36 POCT urinalysis dipstick manually resulted Patient presents today for a routine obstetrics appointment. Patient is currently 36w1d with a Estimated Date of Delivery: 08/25/25. Discussed delivery next Tuesday for LGA. Patietn and spouse agreeable for IOL. Patient to sign IOL consents prior to leaving office today. Patient to arrive at [facility] on Tuesday night on 08/04/25 @6:30pm on Tuesday. GBS was obtained without difficulty and patient signed IOL consent. Spoke with Hope at [facility]BC to add patient to the books for Tuesday. Patient to schedule for 6 week appointment. Documented by Neyda Goldberg LPN on behalf of: Chelsea Lopez DO documented in this encounter [facility] 07-10-2025 History of Presen t illness [...] ASSESSMENT & PLAN ICD-10-CM 1. Third trimester ([facility]) Z34.93 POCT urinalysis dipstick manually resulted 2. 33 weeks gestation of ([facility]) Z3A.33 Return OB: Patient presents today [...] Chelsea Lopez DO documented in this encounter [facility] 06-26-2025 History of Presen t illness [...] & PLAN ICD-10-CM 1. Third trimester ([facility]) Z34.93 POCT urinalysis dipstick manually resulted 2. 31 weeks gestation of ([facility]) Z3A.31 Return OB: Patient presents today [...] of: DAVID Reid documented in this encounter [facility] 06-11-2025 History of Presen t illness [...] nursing note reviewed. Exam conducted with a dye range operator present. Vitals: Estimated body mass index is 34.06 kg/m as calculated from the following: Height as of 11/30/22: 5' 3 . Weight as of this encounter: 192 lb 4 oz. BP: 122/68 Patient's last menstrual period was 11/18/2024. ASSESSMENT & PLAN ICD-10-CM 1. Third trimester ([facility]) Z34.93 POCT urinalysis dipstick manually resulted 2. 29 weeks gestation of ([facility]) Z3A.29 3. Anemia affecting in third trimester ([facility]) O99.013 iron polysaccharides (ProFe) 391.3 (180 Fe) MG capsule 4. Excessive growth affecting management of , antepartum, single or unspecified fetus ([facility]) O36.60X0 Return OB: Patient presents today [...] Chelsea Lopez DO documented in this encounter [facility] 05-29-2025 History of Presen t illness [...] & PLAN ICD-10-CM 1. Second trimester ([facility]) Z34.92 POCT urinalysis dipstick manually resulted 2. 27 weeks gestation of ([facility]) Z3A.27 Return OB: Patient presents today [...] of: DAVID Reid documented in this encounter [facility] 05-02-2025 History of Presen t illness [...] Glucose tolerance, 1 hour 2. Second trimester ([facility]) Z34.92 POCT urinalysis dipstick manually resulted 3. 23 weeks gestation of ([facility]) Z3A.23 Return OB: Patient presents today [...] Chelsea Lopez DO documented in this encounter [facility] 04-03-2025 History of Presen t illness [...] of: DAVID Reid documented in this encounter [facility] 02-26-2025 History of Presen t illness [...] nursing note reviewed. Exam conducted with a dye range operator present. Vitals: Estimated body mass index [...] or undercooked meat, and stay away from [facility]. Patient has been consulted regarding any further do's and don'ts of . Patient voiced understanding and all questions and concerns were answered. Orders Placed This Encounter Procedures POCT urinalysis dipstick manually resulted Follow Up: Patient is to return in 4 weeks for routine OB appointment. Documented by Audrey Weir LPN on behalf of: Chelsea Lopez DO documented in this encounter [facility] 12-11-2024 History of Presen t illness Narrative Reason for Appointment: Patient ID: Tara rBuno is a 29 y.o. female who presents [...] nursing note reviewed. Exam conducted with a dye range operator present. Vitals: Estimated body mass index [...] Chelsea Lopez DO documented in this encounter [facility] 04-02-2024 Evaluation note Authored July 03, 2024 3:25pm 29-year-old female referred to the GI clinic for evaluation of upper abdominal pain. +upper abdominal pain that has resolved few months ago. She states that she still gets intermittent abdominal discomfort but less severe than how it was Will check CBC, LFTs and Lipase Will arrange US of the upper abdomen [facility] Work Phone: [phone] 800-947404-29-2024 History of Present illness Narrative* Matt Sandra APRN-SANITATION INSPECTOR - 03/12/2024 11:20 AM EDT Images from the original note were not included. [address] [place] [id number] SUBJECTIVE: Patient ID: Tara Bruno is a [...] 10/12/2017 Performed by Sarabjit Odom MD at [facility] TONSILLECTOMY WISDOM TOOTH EXTRACTION Past Medical [...] JAY Knight 03/12/24 1305 documented in [facility] Miscellaneous Notes* Telephone Encounter - Mikala Murphy CMA - 02/09/2024 9:06 AM EDT Pt called and was in to see you yesterday 02/07 and is stuffed up today and coughing up yellow. Could you send in something to her local pharmacy? * Telephone Encounter - JAY Knight - 02/09/2024 9:06 AM EDT Christiano sent to [facility] pharmacy. Please remind her to do conveyor monitor as ordered by Melinda. * Telephone Encounter - Mikala Murphy CMA - 02/09/2024 9:06 AM EDT I called and read your note. Pt will get scheduled after this illness documented in this encounter[facility] Telephone encounter Note* Telephone Encounter - Mikala Murphy CMA - 02/09/2024 9:06 AM EDT Pt called and was in to see you yesterday 02/07 and is stuffed up today and coughing up yellow. Could you send in something to her local pharmacy? [facility] Telephone encounter Note* Telephone Encounter - JAY Knight - 02/09/2024 9:06 AM EDT Dapak sent to [facility] pharmacy. Please remind her to do conveyor monitor as ordered by Melinda. [facility] Telephone encounter Note* Telephone Encounter - Mikala Murphy CMA - 02/09/2024 9:06 AM EDT I called and read your note. Pt will get scheduled after this illness [facility] History of Present illness Narrative* JAY Little - 02/08/2024 11:40 AM EDT [address] [facility] [address] Patient: Tara Bruno Date of : 1995 [...] 10/12/2017 Performed by Sarabjit Odom MD at [facility] TONSILLECTOMY WISDOM TOOTH EXTRACTION Current Outpatient [...] LITTLE APRN-CNP 02/08/24 1255 documented in this encounterMount [facility]-2024 History of Present illness Narrative* JAY Knight - 01/03/2024 10:15 AM EST Images from the original note were not included. [address] [facility] [address] SUBJECTIVE: Patient ID: Tara Bruno is a 28 y.o. female. Chief Complaint Patient presents with Anxiety Tara presents today wishing to restart medication for her moods. She does feel she ideally depressed. Her concern is anxiety, irritability, and feels short tempered. Is managing deal of personal stressors. Custody issues with her children's father who lives out of state. Has graduated from [employer]. 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 Depression [...] 10/12/2017 Performed by Sarabjit Odom MD at [facility] TONSILLECTOMY WISDOM TOOTH EXTRACTION Past Medical [...] JAY Knight 01/03/24 1047 documented in this encounterProOhio[facility] System[facility]* Diagnosis Well woman exam with routine gynecological exam Routine gynecological examination documented [facility]* Diagnosis Anxiety and depression- Primary [facility] Diagnosis Acute bacterial sinusitis- Primary Acute sinusitis, unspecified [facility] Diagnosis Viral upper respiratory tract infection- Primary Acute upper respiratory infections of unspecified site Chills Chills (without fever) Epigastric pain Abdominal pain, epigastric Syncope and collapse Gastroesophageal reflux disease, unspecified whether esophagitis present [facility]* Diagnosis Anxiety and depression- Primary Nausea Nausea alone Syncope, unspecified syncope type documented in this encounter [facility]* Diagnosis Second trimester [...] be sent through Care Everywhere. * Depression (Swiss) documented in this encounter[facility] SystemInstructionsNot on file documented in this encounterProBl[facility]* Attachments The following attachments cannot be sent through Care Everywhere. * Acid Reflux and GERD in Adults Discharge Instructions (Swiss) documented in this encounterProOhiohealth [facility] SystemInstructions* Attachments The following attachments cannot be sent through Care Everywhere. * Nausea and Vomiting, Adult (Swiss) documented in this encounterProOhiohealth [facility] Summary Purpose Family History No [...] section and content) DATE CREATED AUTHOR 05/10/2018 [facility] DATE CREATED AUTHOR AUTHOR'S ORGANIZ ATION 12/02/2022 [facility] DATE CREATED AUTHOR AUTHOR'S ORGANIZ ATION 02/28/2024 [facility] DATE CREATED AUTHOR AUTHOR'S ORGANIZ ATION 03/13/2024 [facility] DATE CREATED AUTHOR AUTHOR'S ORGANIZ ATION 07/31/2025 [facility] Care Teams (unrecognized sec tion and content) [...] July 03, 2024 End: July 03, 2024 Certified Financial Planner Relationship Specialty Start Date End Date Radha Calix PA [address] [place] [address] PCP - [facility] [place] [facility] 05/14/24 Certified Financial Planner Relationship Specialty Start Date End Date aRdha Calix PA [address] [place] [address] PCP - [facility] [place] [facility] 05/14/24 Certified Financial Planner Relationship Specialty Start Date End Date Matt Sandra, STONE GRADER-[facility] [address] [place] [address] PCP - General Family Medicine 10/16/19 Certified Financial Planner Relationship Specialty Start Date End Date Matt Sandra, STONE GRADER-[facility] [address] [place] [address] PCP - General Family Medicine 10/16/19 Certified Financial Planner Relationship Specialty Start Date End Date Matt Sandra, STONE GRADER-[facility] [address] [place] [address] PCP - General Family Medicine 10/16/19 Certified Financial Planner Relationship Specialty Start Date End Date Radha Calix PA PCP - [facility] [place] [facility] 05/14/24 Certified Financial Planner Relationship Specialty Start Date End Date Radha Calix PA NPI: PCP - [facility] [place] [facility] 05/14/24 Certified Financial Planner Relationship Specialty Start Date End Date Radha Calix PA NPI: PCP - [facility] [place] [facility] 05/14/24 Certified Financial Planner Relationship Specialty Start Date End Date Radha Calix PA NPI: PCP - [facility] [place] [facility] 05/14/24 Certified Financial Planner Relationship Specialty Start Date End Date Radha Calix PA NPI: PCP - [facility] 05/14/24 Certified Financial Planner Relationship Specialty Start Date End Date Radha Calix PA PCP - [facility] 05/14/24 Certified Financial Planner Relationship Specialty Start Date End Date Radha Calix PA PCP [facility] 05/14/24 Certified Financial Planner Relationship Specialty Start Date End Date Radha Calix PA PCP [facility] 05/14/24 Certified Financial Planner Relationship Specialty Start Date End Date Radha Calix PA PCP [facility] 05/14/24 Certified Financial Planner Relationship Specialty Start Date End Date [facility] Certified Financial Planner Relationship Specialty Start Date End Date Radha Calix PA PCP [facility] 05/14/24 Goals (unrecognized section and content) Goals [...] BE BASED ON THE PRIMARY CLINICAL RECORDS. [facility] [employer] [facility]. provides no warranty or guarantee of the accuracy or completeness of information in this document.
[2025-08-04 19:15] LABS: Hematocrit 28.4 % (36.0-48.0); Hemoglobin 9.2 g/dL (12.0-16.0); Mean Corpuscular HGB Conc 32.4 g/dL (29.9-35.2); Mean Corpuscular Hemoglobin 26.4 pg (26.7-34.0); Mean Corpuscular Volume 81.6 fL (81.0-99.0); Platelet Count 189 10^3/uL (150-450); Red Blood Count 3.48 10^6/uL (4.20-5.40); White Blood Count 10.0 10^3/uL (4.0-11.0)
[2025-08-04] MEDS: MISOPROSTOL 100 MCG TABLET 25 MCG VAGINAL ×2 (20:01→22:59)
[2025-08-04 20:32] LABS: Cannabinoid Screen Urine NEGATIVE (NEGATIVE); Methamphetamines Screen Urine NEGATIVE (NEGATIVE); Tricyclic Antidepressant Urine NEGATIVE (NEGATIVE)
[2025-08-05] VITALS (42 sets, daily range): BP systolic 76–142; BP diastolic 52–84; PULSE 74–108; TEMP 35.6–37.3; O2SAT 96–99
[2025-08-05] MEDS: 0.9 % SODIUM CHLORIDE 1,000 ML 125 ML IV ×2 (05:05→10:19)
[2025-08-05] MEDS: OXYTOCIN/0.9 % SODIUM CHLORIDE 10 UNITS/500 ML PLAST..BAG 6 UNIT IV (06:13)
[2025-08-05] MEDS: CLINDAMYCIN PHOSPHATE/D5W 900 MG/50 ML PREMIX 100 MG IV ×2 (12:21→18:01)
[2025-08-05] MEDS: FAMOTIDINE/PF 20 MG/2 ML VIAL IV (12:22)
[2025-08-05] MEDS: METOCLOPRAMIDE HCL 10 MG/2 ML VIAL IVP (12:22)
[2025-08-05] MEDS: CITRIC ACID/SODIUM CITRATE 30 ML SOLUTION ORACIT SHOHL'S SOLN PO (12:25)
--- NOTE | 2025-08-05 13:43 | PM.ONB ---
Brief Operative Note Date of procedure: 08/05/25 Pre-op diagnosis general: iup at term gestation, macrosomia, failure to descend Post-op diagnosis: same as pre-op Procedure: NAME OF PROCEDURE: [ section ] PROCEDURE: Patient was taken back to the Operating Room where she was given a spinal anesthesia with Duramorph without difficulty. She was prepped and draped in the normal sterile fashion. A Pfannenstiel skin incision was then made 2 cm above the symphysis pubis and carried down to underlying rectus fascia using a Bovie. The fascia was incised in the midline and extended laterally using Pat scissors. Two Neo clamps were placed on the superior aspect of the fascia and dissected off the underlying rectus muscles. The same was performed on the inferior aspect as well. The muscles were then in the midline. Peritoneum was identified and entered bluntly. The peritoneum was then extended superiorly and inferiorly with good visualization of the bladder. The bladder blade was inserted. A low transverse incision was made on the patient's uterus and extended laterally digitally. The infant was then delivered atraumatically after the bladder blade was removed in the cephalic position. The cord was clamped and cut. Cord blood was obtained. The infant was handed off to awaiting team. The patient's placenta was spontaneously delivered. The uterus was then exteriorized. The uterus was cleared of all clots and debris. The bladder blade was reinserted. The patient's uterine incision was closed using #0 Vicryl in a running lock fashion. Excellent hemostasis was assured. The uterus was then returned to the patient's abdomen. The patient's abdomen was copiously irrigated using warm saline. Peritoneal gutters were cleared of all clots and debris. Again excellent hemostasis was assured. The patient's peritoneum was closed using 3-0 Vicryl in a running fashion. The patient's fascia was closed using #0 Vicryl in a running fashion. The patient's skin was closed using 4-0 Vicryl subcuticularly. The patient tolerated the procedure well. Sponge, lap, and needle counts were correct x2. The patient was taken to the Recovery Room in stable condition. Anesthesia: spinal Surgeon: Henok Lopez Residential Sales Representative: Kathy Mireles Estimated blood loss (mL): 750 Pathology: none sent Condition: stable Disposition: PACU
--- NOTE | 2025-08-05 13:45 | PM.OBPRCCS ---
Procedure Pre-op/Post-op diagnoses: Pre-Op/Post-Op Diagnoses Operation Date: 08/05/25 12:30 <No data on this case meets the specified criteria> Procedure: Procedures Operation Date: 08/05/25 12:30 <No data on this case meets the specified criteria> Director Medical Surgical: Kathy Mireles Disposition: PACU Anesthesia type: Spinal
[2025-08-05] MEDS: OXYTOCIN/0.9 % SODIUM CHLORIDE 20 UNITS/1,000 ML PLAST..BAG 125 UNIT IV (14:40)
[2025-08-05] MEDS: KETOROLAC TROMETHAMINE 30 MG/ML VIAL IVP (18:00)
[2025-08-05] MEDS: 0.9 % SODIUM CHLORIDE 1,000 ML 150 ML IV (19:30)
[2025-08-05 19:49] LABS: Hematocrit 28.5 % (36.0-48.0); Hemoglobin 9.1 g/dL (12.0-16.0); Immature Granulocytes Abs Auto 0.14 10^3/uL (0.00-0.03); Immature Granulocytes Pct Auto 0.6 % (0.0-0.5); Lymphocytes Absolute Auto 1.1 10^3/uL (1.2-3.8); Mean Corpuscular HGB Conc 31.9 g/dL (29.9-35.2); Mean Corpuscular Hemoglobin 26.5 pg (26.7-34.0); Mean Corpuscular Volume 82.8 fL (81.0-99.0); Platelet Count 221 10^3/uL (150-450); Red Blood Count 3.44 10^6/uL (4.20-5.40); White Blood Count 21.8 10^3/uL (4.0-11.0)
[2025-08-06 00:13] VITALS: O2SAT 97
[2025-08-06 04:02] VITALS: BP 107/74; PULSE 77; TEMP 36.4
[2025-08-06] MEDS: ACETAMINOPHEN 500 MG TABLET 1000 MG PO ×2 (06:14→17:35)
[2025-08-06 06:23] LABS: Hemoglobin 7.0 g/dL (12.0-16.0); Immature Granulocytes Abs Auto 0.11 10^3/uL (0.00-0.03); Immature Granulocytes Pct Auto 0.7 % (0.0-0.5); Lymphocytes Absolute Auto 1.7 10^3/uL (1.2-3.8); Mean Corpuscular HGB Conc 31.4 g/dL (29.9-35.2); Mean Corpuscular Hemoglobin 25.8 pg (26.7-34.0); Mean Corpuscular Volume 82.3 fL (81.0-99.0); Platelet Count 174 10^3/uL (150-450); Red Blood Count 2.71 10^6/uL (4.20-5.40); White Blood Count 16.7 10^3/uL (4.0-11.0)
[2025-08-06 06:27] LABS: Hematocrit 22.3 % (36.0-48.0)
[2025-08-06] MEDS: KETOROLAC TROMETHAMINE 30 MG/ML VIAL IVP ×4 (06:34→18:20)
[2025-08-06 07:48] VITALS: BP 118/74; TEMP 36.3; TEMP 37
--- NOTE | 2025-08-06 08:13 | PM.OBPN ---
OB - PN: Subj Subjective Patient comments: no complaints and pain well controlled [place] status: doing well Exam Constitutional Vital Signs, click to edit/add: Last Vital Signs Temp 98.6 F 08/06/25 07:48 Pulse 77 08/06/25 04:02 Resp 16 08/06/25 07:48 BP 118/74 08/06/25 07:48 Pulse Ox 97 08/06/25 00:13 O2 Del Method Room Air 08/06/25 04:10 Documenting provider has reviewed patient's vital signs: yes Common normals: no apparent distress Respiratory Common normals: normal respiratory effort and clear to auscultation bilaterally Cardio Common normals: regular rate and regular rhythm GI Common normals: Normal to inspection, nondistended, normoactive bowel sounds present Extremity Common normals: no clubbing, cyanosis or edema and no calf tenderness Results Labs Labs: Short CBC 08/05/25 08/06/25 Range/Units 19:42 06:16 WBC 21.8 H 16.7 H (4.0-11.0) 10^3/uL Hgb 9.1 L 7.0 L (12.0-16.0) g/dL Hct 28.5 L 22.3 L* (36.0-48.0) % Plt Count 221 174 (150-450) 10^3/uL Urinary Catheter Management Urinary Catheter Management Urethral: Cath placed during this visit: yes Urethral indwelling: No Insertion date: 08/05/25 Insertion time: 12:14 2-way Urethral: Cath placed during this visit: yes, but has since been removed by the nurse Removal date: 08/06/25 Removal time: 04:10 OB - PN: A/P Plan - day: 1 Plan: routine postop care Time Spent with Patient Time: Total time spent is greater than 50% in coordination of care (as documented) at patient's floor/unit and/or counseling patient: Total time spent with greater than 50% in coordination of care (as documented) at patient's floor/unit and/or counseling patient: less than 15 minutes
[2025-08-06] MEDS: DOCUSATE SODIUM 100 MG CAPSULE PO (08:25)
[2025-08-06 12:33] VITALS: BP 111/70; TEMP 36.8
[2025-08-06 12:34] VITALS: O2SAT 97
[2025-08-06 17:45] VITALS: BP 120/75; TEMP 36.9
[2025-08-07 00:04] VITALS: BP 105/66; PULSE 97; TEMP 37.1; O2SAT 98
[2025-08-07] MEDS: ACETAMINOPHEN 500 MG TABLET 1000 MG PO ×2 (00:10→06:45)
[2025-08-07] MEDS: DOCUSATE SODIUM 100 MG CAPSULE PO (00:11)
[2025-08-07] MEDS: KETOROLAC TROMETHAMINE 30 MG/ML VIAL IVP ×2 (00:11→06:45)
[2025-08-07 07:06] LABS: Immature Granulocytes Abs Auto 0.23 10^3/uL (0.00-0.03); Immature Granulocytes Pct Auto 1.5 % (0.0-0.5); Lymphocytes Absolute Auto 2.1 10^3/uL (1.2-3.8); Mean Corpuscular HGB Conc 31.0 g/dL (29.9-35.2); Mean Corpuscular Hemoglobin 26.0 pg (26.7-34.0); Mean Corpuscular Volume 83.7 fL (81.0-99.0); Platelet Count 193 10^3/uL (150-450); Red Blood Count 2.58 10^6/uL (4.20-5.40); White Blood Count 15.6 10^3/uL (4.0-11.0)
[2025-08-07 07:16] LABS: Hematocrit 21.6 % (36.0-48.0); Hemoglobin 6.7 g/dL (12.0-16.0)
--- NOTE | 2025-08-07 08:46 | PM.OBPN ---
OB - PN: Subj Subjective Patient comments: no complaints [place] status: doing well [place] feeding status: breast and bottle feeding Exam Constitutional Vital Signs, click to edit/add: Last Vital Signs Temp 98.8 F 08/07/25 00:04 Pulse 97 H 08/07/25 00:04 Resp 18 08/07/25 00:04 BP 105/66 08/07/25 00:04 Pulse Ox 98 08/07/25 00:04 O2 Del Method Room Air 08/07/25 00:07 Documenting provider has reviewed patient's vital signs: yes Common normals: no apparent distress Exam limitations: altered mental status General appearance: cooperative Orientation/consciousness: Yes awake, Yes oriented to person, Yes oriented to place and Yes oriented to time HENMT Common normals: normocephalic Head and scalp: normal to inspection Face and sinus: normal facial exam Eye Common normals: EOMs intact bilaterally General eye: normal appearance of both eyes Visual acuity: acuity normal Neck & C-Spine Common normals: full ROM General: normal visual inspection Lymph Lymphatic: no lymphadenopathy noted Chest Common normals: inspection of chest normal Respiratory Common normals: normal respiratory effort Effort & inspection: able to speak in complete sentences Auscultation: clear to auscultation bilaterally Cardio Common normals: no JVD, regular rate and regular rhythm Rate: regular rate Rhythm: regular rhythm GI Common normals: Normal to inspection, nondistended, normoactive bowel sounds present Inspection: normal to inspection Auscultation: normoactive bowel sounds Palpation: soft Percussion: normal to percussion Common normals: no CVA tenderness Back & Pelvis Common normals: no CVA tenderness Thoracic spine/upper back: normal to inspection Extremity Common normals: normal to inspection General: normal exam except as noted Neuro Common normals: oriented x3 Sensorium/orientation: awake, alert, oriented to person, oriented to place and oriented to time Psych Common normals: mental status grossly normal, thought process normal, cooperative and affect normal Results Labs Labs: Short CBC 08/07/25 Range/Units 06:40 WBC 15.6 H (4.0-11.0) 10^3/uL Hgb 6.7 L* (12.0-16.0) g/dL Hct 21.6 L* (36.0-48.0) % Plt Count 193 (150-450) 10^3/uL Urinary Catheter Management Urinary Catheter Management Urethral: Cath placed during this visit: yes Urethral indwelling: No Insertion date: 08/05/25 Insertion time: 12:14 2-way Urethral: Cath placed during this visit: yes, but has since been removed by the nurse Removal date: 08/06/25 Removal time: 04:10 OB - PN: A/P Plan - day: 2 Plan: discharge home Time Spent with Patient Time: Total time spent is greater than 50% in coordination of care (as documented) at patient's floor/unit and/or counseling patient: Total time spent with greater than 50% in coordination of care (as documented) at patient's floor/unit and/or counseling patient: less than 15 minutes
[2025-08-07 09:50] VITALS: TEMP 36.1
[2025-08-07 09:51] VITALS: BP 117/72; PULSE 109
[2025-08-07] MEDS: IBUPROFEN 400 MG TABLET 800 MG PO (13:16)
== END 2025-08-07 16:00 | disposition home or self-care (01) | DRG 540 ==
PROVIDERS: Admitting Provider Obstetrics & Gynecology; PCP Nurse Practitioner; Visit Provider Obstetrics & Gynecology
PROC: 10D00Z1 Extraction of Products of Conception, Low, Open Approach (ICD-10-PCS; CPT 59514; principal; 2025-08-05 12:30)
DX: O36.63X0 Maternal care for excessive fetal growth, third trimester, not applicable or unspecified (principal); O32.4XX0 Maternal care for high head at term, not applicable or unspecified; Z3A.37 37 weeks gestation of pregnancy; Z37.0 Single live birth
CPT/HCPCS: 36415; 51702; 59025; 59050; 80307; 85025; 85027; 86850; 86900; 86901; 94667; J0131; J0736; J1100; J1200; J1885; J2274; J2300; J2405; J2590; J2765; J3490

== ENCOUNTER 2025-09-06 16:54 | Outpatient (OUT) | payer MEDICAID, SELFPAY ==
--- OUTSIDE RECORDS SUMMARY | 2025-09-06 16:57 | XMS_ITS | Clinical Summary ---
Author Organization [employer] Address [id number] [address] [place] [address] Care Team Providers Care Seat Coverer Name Role Phone Lukasz Diego APRN-TIMBER POISONER Primary Care Provider + Allergies Active AllergyReactionsCriticalityNoted DateCommentsCephalexinAnaphylaxisHigh 07/29/2017 Throat swelled up and itching Medications MedicationSigDispense QuantityRefillsLast FilledStart DateEnd DateStatus ondansetron ODT (ZOFRAN ODT) 4 mg disintegrating tablet Indications:NauseaDissolve 1 tablet (4 mg total) on tongue every 8 (eight) hours as needed for nausea or vomiting. 12 tablet 03/12/2024ctive FLUoxetine (PROzac) 10 mg capsule Indications:Anxiety and depressionTake 1 capsule (10 mg total) by mouth in the morning. 90 capsule 4Active Active Problems ProblemNoted DateDiagnosed DateEpigastric pain10/22/2019 Resolved Problems ProblemNoted DateDiagnosed DateResolved DateHGSIL on cytologic smear of cervix Overview (09/14/2017): Repeat colpo at 34 weeks Immunizations ImmunizationAdministration DatesNext JtdLOkK7507/30/2002,06/14/1997,1996, 1996,1996Hepatitis B1,1996,1996HiB06/14/1997, 1996,1996,1996IPV07/30/2002,1996,1996,1996 MMR07/30/2002,06/14/1997 Family History Medical HistoryRelationNameCommentsDiabetesMaternal GrandfatherOvarian cancer Maternal GrandmotherBreast cancerPaternal GrandmotherRelationNameStatusComments FatherAliveMaternal GrandfatherMaternal GrandmotherMotherAlivePaternal Grandmother Social History Tobacco UseTypesPacks/DayYears UsedDateSmoking Tobacco: NeverSmokeless Tobacco: Never Tobacco Cessation:Counseling Given: Not Answered Alcohol UseStandard Drinks/WeekCommentsNo0 (1 standard drink = 0.6 oz pure alcohol)Social Connection and Isolation PanelAnswerDate RecordedIn a typical week, how many times do you talk on the phone with family, friends, or neighbors?More than three times a week10/15/2021How often do you get together with friends or relatives?Twice a week10/15/2021How often do you attend synagogue or samaritan services?Never1Do you belong to any clubs or organizations such as synagogue groups, unions, fraternal or athletic groups, or school groups?No 10/15/2021How often do you attend meetings of the clubs or organizations you belong to?Never10/15/2021re you , , , , never , or living with a partner?Never xpzlqpt8310/15/2021UDIT-CAnswerDate RecordedQ1: How often do you have a drink containing alcohol?Monthly or less 10/15/2021Q2: How many drinks containing alcohol do you have on a typical day when you are drinking?1 or Q3: How often do you have six or more drinks on one occasion?Less than cbzurst4710/15/2021Overall Financial Resource Strain (CARDIA)AnswerDate RecordedHow hard is it for you to pay for the very basics like food, housing, medical care, and heating?Somewhat hard02/09/2023 PHQ-2AnswerDate RecordedTotal Dbzyl803Finsevier [facility] [place] Occupational [facility] - Occupational Stress QuestionnaireAnswerDate RecordedDo you feel stress - tense, restless, nervous, or anxious, or unable to sleep at night because your mind is troubled all the time - these days?Rather much10/15/2021xercise Vital SignAnswerDate RecordedOn average, how many days per week do you engage in moderate to strenuous exercise (like a brisk walk)?2 days10/15/2021On average, how many minutes do you engage in exercise at this level?30 min10/15/2021RAPARE - TransportationAnswerDate RecordedIn the past 12 months, has lack of transportation kept you from medical appointments or from getting medications?No 02/09/2023In the past 12 months, has lack of transportation kept you from meetings, work, or from getting things needed for daily living?No02/09/2023 Housing InstabilityAnswerDate RecordedAre you worried or concerned that in the next two months you may not have stable housing that you own, rent or stay in as a part of a household?No02/09/2023hildcareAnswerDate RecordedDo problems getting director maternal child make it difficult for you to work or study?No10/15/2021 EmploymentAnswerDate RecordedDo you need help finding a local career center and/or a training program?No10/15/2021Hunger ScreeningAnswerDate RecordedWithin the past 12 months we worried whether our food would run out before we got money to buy more.Never True03/12/2024Within the past 12 months the food we bought just didn't last and we didn't have money to get more.Never True03/12/2024 Purpose - LifeAnswerDate RecordedI have a purpose and direction in my life.Agree 10/15/2021ducationAnswerDate RecordedWhat is the highest level of school you have completed or the highest degree you have received?12th grade10/19/2019 CommentsNoSex and Gender InformationValueDate RecordedSex Assigned at BirthNot on fileLegal MucPpwmcf28/04/2015 6:14 PM EDTGender IdentityNot on file Sexual OrientationNot on fileOccupationIndustryJob Start 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 coNot on fileNot on fileNot on file Last Filed Vital Signs Vital SignReadingTime TakenCommentsBlood Ulmrlvqt345/6804/ 11:21 AM EDT Eizgr780503/12/2024 11:21 AM HXTZdwxdtovhrs15.7 ??C (98.1 ??F)03/12/2024 11:21 AM EDTRespiratory Pdon354103/12/2024 11:21 AM EDTOxygen Mfxmbbfgql262%03/12/2024 11:21 AM EDTInhaled Oxygen Concentration--Evvwef38.8 kg (156 lb 1.6 oz) 03/12/2024 11:21 AM XISBoioux682.5 cm (5' 2 )03/12/2024 11:21 AM EDTBody Mass Index28.55003/12/2024 11:21 AM EDT Plan of Treatment Health MaintenanceDue DateLast DoneCommentsDTaP,Tdap and Td Vaccines (6 - Tdap) , 06/14/1997, 1996, Additional history existsPap Smear , 07/28/2017Adult BMI Tpojnzfbq18/29/941135/ Depression Vfqwhmyvp02/29//Tobacco Tilycsatx83/29/ Influenza VaccineDiscontinued Medical Devices Not on file Procedures Procedure NamePriorityDate/TimeAssociated DiagnosisCommentsPAP SMEARRoutine 08/09/2018 3:01 PM EDT from Last 3 Months or Most Recently Relevant to Health Maintenance Results * Pap Smear (08/09/2018 3:01 PM EDT)Specimen (Source)Anatomical Location / LateralityCollection Method / VolumeCollection TimeReceived TimeCervical TP 08/09/2018 3:01 PM EDT08/09/2018 3:06 PM EDT Narrative COPATH - 08/21/2018 12:43 PM EDT [facility] ? [address] ? [place] [address] ? Gynecologic Cytology Consultation ? Patient Name: TARA ISLAS : 1995 (Age: 23) Gender: F Taken: 08/09/2018 Reported: 08/21/2018 Physician(s): Sarabjit Odom M.D. Copy To: ?? [facility] Rec. #: [id number] Acct: # [id number] Final Cytologic Interpretation Cervical (with or without endocervical) ThinPrep: Satisfactory for evaluation. A transformation zone component is present. NEGATIVE FOR INTRAEPITHELIAL LESION OR MALIGNANCY. ?? lvt/08/21/2018 Interpretation performed at [facility], [address] [place] [address], License number: [id number]. Electronically Signed Out By ?HARJEET Cruz(ASCP) Date of Last Menstrual Period: ? 06/14/18 Other Clinical Conditions: z12.4 Screenings for malignant neoplasm of cervix z87.898 Hx of abnormal cervical pap smear Previous abnormal pap Hormone replacement therapy Previous treatment: Colposcopy and LEEP Previous cytology: HSIL, YVETTE II - III Source of Specimen ??Cervical (with or without endocervical) ThinPrep ? Thin Prep Pap (DEALER SALES REP) Fee Code(s): ?? G0145 The Pap test is a screening test with an inherent, but low, probability of error. The Pap test is primarily effective for the diagnosis and prevention of squamous cell carcinoma. Regular screening iscritical for prevention. ThinPrep liquid-based slides, which meet the Coppersmith Apprentice criteria for automated screening, have been screened by the ThinPrep Imaging System (as of 07/31/07) along with an additional manual rescreening by a leaf stripper and, if indicated, by a pathologist.Sarabjit Odom M.D. 08/14/2018 Authorizing ProviderResult TypeResult StatusStmriela Odom MDPATHOLOGY/CYTOLOGY ORDERABLESFinal ResultPerforming OrganizationAddressCity/State/ZIP CodePhone Number COPATH from Last 3 Months or Most Recently Relevant to Health Maintenance Insurance Care Teams Team MemberRelationshipSpecialtyStart DateEnd Date Lukasz Diego, DIRECTOR CORPORATE COMMUNICATIONS-TIMBER POISONER [address] [place] [address] PCP - GeneralInternal Medicine08/06/25
--- OUTSIDE RECORDS SUMMARY | 2025-09-06 16:57 | XMS_ITS | CCD ---
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 HealthcareNitrite, UA NegativeNegative - PositiveNOMS HealthcarepH, UA75 - 9NOMS HealthcareProtein, UA NegativeNegative - 2000(20) ++++ mg/dLNOMS HealthcareSpec Grav, UA1.0051 - 1.03 NOMS HealthcareUrobilinogen, UA1.00.2 - 12 mg/dLNOMS HealthcareNOMS Healthcare Urinalysis macro (dipstick) panel (U)on 57-12-9749Pqbvnwxaf, UANegativeNegative - 4(70) +++ mg/dLNOMS HealthcareBlood, UAPositiveNegative - 50 Abhi/mcLNOMS HealthcareComment on above:TraceClarity, UAClearNOMS HealthcareColor, UAYellow NOMS HealthcareGlucose, UANegativeNegative - 2000(110) ++++ mg/dLNOMS Healthcare Interpretation and review of laboratory resultsAbnormalNOMS HealthcareKetones, UAPositiveNegative - 160(16) ++++ mg/dLNOMS HealthcareComment on above:Trace Leukocytes, UANegativeNegative - 500+++ Pura/mcLNOMS HealthcareNitrite, UA NegativeNegative - PositiveNOMS HealthcarepH, UA65 - 9NOMS HealthcareProtein, UA TraceNegative - 2000(20) ++++ mg/dLNOMS HealthcareSpec Grav, UA1.021 - 1.03NOMS HealthcareUrobilinogen, UA0.20.2 - 12 mg/dLNOMS HealthcareNOMS HealthcareUS OB FOLLOW UP TRANSABDOMINAL APPROACHon 43-79-1927OA OB FOLLOW UP TRANSABDOMINAL APPROACHEXAM: US OB FOLLOW UP TRANSABDOMINAL APPROACH HISTORY: [...] II, MD, PHD at 12-Jun-2025 07:34:42 AM [facility] TeleradiologyNormalNot AvailableComment on above:Order Comment: US OB SCAN FOR GROWTH Estimated Date of Delivery: 08/25/25 Gestational Age as of 05/29/2025: 91l5bXavychzqmm macro (dipstick) panel (U)on 15-93-4672Wiqmxiwzz, UANegativeNegative - 4(70) +++ mg/dLNOMS HealthcareBlood, UAPositiveNegative - 50 Abhi/mcLNOMS HealthcareComment on above:TraceClarity, UA ClearNOMS HealthcareColor, UAYellowNOMS HealthcareGlucose, UANegativeNegative - 2000(110) ++++ mg/dLNOMS HealthcareInterpretation and review of laboratory resultsAbnormalNOMS HealthcareKetones, UAPositiveNegative - 160(16) ++++ mg/dL NOMS HealthcareComment on above:TraceLeukocytes, UANegativeNegative - 500+++ Pura/mcLNOMS HealthcareNitrite, UANegativeNegative - PositiveNOMS HealthcarepH, UA65 - 9NOMS HealthcareProtein, UANegativeNegative - 2000(20) ++++ mg/dLNOMS HealthcareSpec Grav, UA1.0151 - 1.03NOMS HealthcareUrobilinogen, UA0.20.2 - 12 mg/dLNOMS HealthcareNOMS HealthcareALL CBC WITH AUTO DIFFon 88-30-3250ZDHIFOOMF ABSOLUTE MDZJ1NGSG HealthcareBasophils/100 WBC (Bld)0.2 %0.2 - 2.0 %NOMS HealthcareEosinophils/100 WBC (Bld)0.9 %0.9 - 7.0 %[facility] HospitalErythrocyte distribution width (RBC) [Ratio]13 %11.0 - 15.0 %[facility] HospitalHematocrit (Bld) [Volume fraction]30.1 %Low36.0 - 48.0 %[facility] HospitalHemoglobin (Bld) [Mass/Vol]10 g/dLLow12.0 - 16.0 g/dLRay County Memorial HospitalIMMATURE GRANULOCYTES ABS AUTO0.17HighRay County Memorial HospitalImmature granulocytes/100 WBC (Bld)1.7 %High0.0 - 0.5 %[facility] HospitalInterpretation and review of laboratory resultsAbnormalRay County Memorial HospitalLYMPHOCYTES ABSOLUTE AUTO1.5NOUniversity HospitalLymphocytes/100 WBC (Bld) 15.2 %Low20.5 - 60.0 %[facility] (RBC) [Entitic mass]29.2 pg26.7 - 34.0 pgRay County Memorial HospitalMCHC (RBC) [Mass/Vol]33.2 g/dL29.9 - 35.2 g/dLRay County Memorial Hospital MCV (RBC) [Entitic vol]88 fL81.0 - 99.0 fLRay County Memorial HospitalMONOCYTES ABSOLUTE AUTO 0.5NOUniversity HospitalMonocytes/100 WBC (Bld)5.4 %1.7 - 12.0 %[facility] NEUTROPHILS ABSOLUTE AUTO7.5HighRay County Memorial HospitalNeutrophils/100 WBC (Bld)76.6 % High43.0 - 75.0 %[facility] HospitalPlatelet mean volume (Bld) [Entitic vol]9.1 fL Low9.5 - 13.5 fLRay County Memorial HospitalTBH EO #0.1NOMS Park[facility] HealthTB GYZ885VCJFSt. Louis Behavioral Medicine Institute RBC3.42LowNOSt. Louis Behavioral Medicine Institute WBC9.7NOUniversity HospitalCLINISYNCNWestern Missouri Medical CenterUrinalysis macro (dipstick) panel (U)on 35-07-5323Fvtwnpxcs, UA NegativeNegative - 4(70) +++ mg/dLNONC HealthcareBlood, UAPositiveNegative - 50 Abhi/mcLNONC HealthcareComment on above:traceClarity, UAClearNOMS Healthcare Color, UAYellowNONC HealthcareGlucose, UAPositiveNegative - 2000(110) ++++ mg/dL NOMS HealthcareComment on above:100Interpretation and review of laboratory resultsAbnormalNOMS HealthcareKetones, UANegativeNegative - 160(16) ++++ mg/dL NOMS HealthcareLeukocytes, UANegativeNegative - 500+++ Pura/mcLNOMS Healthcare Nitrite, UANegativeNegative - PositiveNOMS HealthcarepH, UA65 - 9[facility] Healthcare Protein, UANegativeNegative - 2000(20) ++++ mg/dLNOMS HealthcareSpec Grav, UA 1.011 - 1.03NOMS HealthcareUrobilinogen, UA0.20.2 - 12 mg/dLNOMS HealthcareNOMS HealthcareUrinalysis macro (dipstick) panel (U)on 13-50-4491Rnigmfcdr, UA NegativeNegative - 4(70) +++ mg/dLNOMS HealthcareBlood, UAPositiveNegative - 50 Abhi/mcLNOMS HealthcareComment on above:smallClarity, UAClearNOMS Healthcare Color, UAYellowNOMS HealthcareGlucose, UAPositiveNegative - 1999(110) ++++ mg/dL NOMS HealthcareComment on above:100mg/dLInterpretation and review of laboratory resultsAbnormalNOMS HealthcareKetones, UANegativeNegative - 160(16) ++++ mg/dL NOMS HealthcareLeukocytes, UANegativeNegative - 500+++ Pura/mcLNOMS Healthcare Nitrite, UANegativeNegative - PositiveNOMS HealthcarepH, UA65 - 9N[facility] Healthcare Protein, UAPositiveNegative - 2000(20) ++++ mg/dLNOMS HealthcareComment on above:30mg/dLSpec Grav, UA1.031 - 1.03NOMS HealthcareUrobilinogen, UA0.20.2 - 12 mg/dLNOMS HealthcareNOMS HealthcareNo Panel InformationOrdered By: Radiologist Radiology on 38-35-1634[facility] Work Phone: No Panel Informationon 53-38-0547Zbtiuhokn Study observation (narrative)NOM HealthcareUS OB ANATOMYon 52-90-5468[place], [place] [address] Ultrasound Report Signed Patient: BRANDIE BRUNO MR#: [id number] : 1995 Acct:[id number] Age/Sex: 30 / F ADM Date: 04/10/25 Loc: US Attending Dr: Henok Lopez D.O. Ordering Physician: Henok Lopez D.O. Date of Service: 04/10/25 Procedure(s): US OB anatomy Accession Number(s): [id number] cc: MATT SANDRA ; Henok Lopez D.O. [place] [address] Patient Name: BRANDIE BRUNO MRN: [id number] date: 1995 Sex: F Assigned Patient Location: US Current Patient Location: US Accession/Order Number: [id number] Exam Date: 04/10/2025 16:00 Report Date: 04/10/2025 16:04 At the request of: HENOK LOPEZ DO Procedure: US OB anatomy Obstetrical [...] Wynn M.D. 04/10/2025 4:04 PM Dictation Location: [place] [address] Electronically authenticated by: [id number] Y Date: 04/10/2025 16:04 Dictated By: Ashish Wynn D.O. Signed By: 04/10/25 1607 DD/ 1604 TD/TT: Electronic Technologist:TBHRadiology, Radiologist, - 04/10/2025 [place] [address] Ultrasound Report Signed Patient: BRANDIE BRUNO MR#: [id number] : 1995 Acct:[id number] Age/Sex: 30 / F ADM Date: 04/10/25 Loc: US Attending Dr: Henok Lopez D.O. Ordering Physician: Henok Lopez D.O. Date of Service: 04/10/25 Procedure(s): US OB anatomy Accession Number(s): [id number] cc: MATT SANDRA ; Henok Lopez D.O. The [address] [address] Patient Name: BRANDIE BRUNO MRN: [id number] date: 1995 Sex: F Assigned Patient Location: Current Patient Location: US Accession/Order Number: [id number] Exam Date: 04/10/2025 16:00 Report Date: 04/10/2025 16:04 At the request of: HENOK LOPEZ DO Procedure: US OB anatomy Obstetrical [...] Wynn M.D. 04/10/2025 4:04 PM Dictation Location: [place] [address] Electronically authenticated by: [id number] Y Date: 04/10/2025 16:04 Dictated By: Ashish Wynn D.O. Signed By: 04/10/25 1607 DD/ 1604 TD/TT: Electronic Technologist: MANDEEP Piña OB CERVICAL LENGTHon 77-78-2380[place], [place] [address] Ultrasound Report Signed Patient: BRANDIE BRUNO MR#: [id number] : 1995 Acct:[id number] Age/Sex: 30 / F ADM Date: 04/10/25 Loc: US Attending Dr: Henok Lopez D.O. Ordering Physician: Henok Lopez D.O. Date of Service: 04/10/25 Procedure(s): US OB cervical length Accession Number(s): [id number] cc: MATT SANDRA Corey D.O. The [address] [address] Patient Name: BRANDIE BRUNO MRN: [id number] date: 1995 Sex: F Assigned Patient Location: US Current Patient Location: US Accession/Order Number: [id number] Exam Date: 04/10/2025 16:04 Report Date: 04/10/2025 16:04 At the request of: HENOK LOPEZ DO Procedure: US OB cervical length Obstetrical ultrasound to assess for cervical length Cervical length 3.9 cm. Os closed. US/US OB cervical length IMPRESSION: Cervical length 3.9 cm. Impression dictated by: Ashish Wynn M.D. 04/10/2025 4:04 PM Dictation Location: [facility] Electronically authenticated by: [id number] Y Date: 04/10/2025 16:04 Dictated By: Ashish Wynn D.O. Signed By: 04/10/25 1607 DD/ 1604 TD/TT: Electronic Technologist:TBHRadiology, Radiologist, - 04/10/2025 [place] [address] Ultrasound Report Signed Patient: BRANDIE BRUNO MR#: [id number] : 1995 Acct:[id number] Age/Sex: 30 / F ADM Date: 04/10/25 Loc: US Attending Dr: Henok Lopez D.O. Ordering Physician: Henok Lopez D.O. Date of Service: 04/10/25 Procedure(s): US OB cervical length Accession Number(s): [id number] cc: MATT SANDRA ; Henok Lopez D.O. The [place] [id number] Patient Name: BRANDIE BRUNO MRN: [id number] date: 1995 Sex: F Assigned Patient Location: US Current Patient Location: US Accession/Order Number: [id number] Exam Date: 04/10/2025 16:04 Report Date: 04/10/2025 16:04 At the request of: HENOK LOPEZ DO Procedure: US OB cervical length Obstetrical ultrasound to assess for cervical length Cervical length 3.9 cm. Os closed. US/US OB cervical length IMPRESSION: Cervical length 3.9 cm. Impression dictated by: Ashish Wynn M.D. 04/10/2025 4:04 PM Dictation Location: [place] [address] Electronically authenticated by: [id number] Y Date: 04/10/2025 16:04 Dictated By: Ashish Wynn D.O. Signed By: 04/10/25 1607 DD/ 1604 TD/TT: Electronic Technologist: MANDEEP HealthcareRECURRENT VAGINITIS (HTRX)on 45-44-8708DZGLSRWIV PJIIHZU75.45 AbnormalNOMS HealthcareATOPOBIUM VAGINAEDetectedAbnormalNOMS HealthcareBVAB 2,3 (BACTERIAL VAGINOSIS ASSOCIATED BACTERIA 2, 3); MOBILUNCUS SPP17.543AbnormalNOMS HealthcareBVAB 2,3 (BACTERIAL VAGINOSIS ASSOCIATED BACTERIA 2, 3); MOBILUNCUS SPPDetectedAbnormalNOMS HealthcareCANDIDA ALBICANS, PARAPSILOSIS, TROPICALIS0 NOMS HealthcareCANDIDA ALBICANS, PARAPSILOSIS, TROPICALISNot detectedNOMS HealthcareCANDIDA XBEUHQBL0SVBN HealthcareCANDIDA GLABRATANot detectedNOMS HealthcareCANDIDA VTZGWD56.514AbnormalNOMS HealthcareCANDIDA KRUSEIDetected AbnormalNOMS HealthcareCHLAMYDIA ULSZRBPFTYJ9DHQK HealthcareCHLAMYDIA TRACHOMATISNot detectedNOMS HealthcareERMB, C; MEFA22.692AbnormalNOMS Healthcare ERMB, C; MEFADetectedAbnormalNOMS HealthcareGARDNERELLA WOLQDPAWR89.666Abnormal NOMS HealthcareGARDNERELLA VAGINALISDetectedAbnormalNOMS Healthcare Interpretation and review of laboratory resultsAbnormalNOMS Healthcare MEGASPHAERA (TYPES 1, 2)21.837AbnormalNOMS HealthcareMEGASPHAERA (TYPES 1, 2) DetectedAbnormalNOMS HealthcareMYCOPLASMA PPKMAGIAYJ2ELSA HealthcareMYCOPLASMA GENITALIUMNot detectedNOMS HealthcareNEISSERIA EAPZIVABEKM8JNGN Healthcare NEISSERIA GONORRHOEAENot detectedNOMS HealthcareTET B, TET M20.933AbnormalNOMS HealthcareTET B, TET MDetectedAbnormalNOMS HealthcareTRICHOMONAS NDUFPZYNL6ALXH HealthcareTRICHOMONAS VAGINALISNot detectedNOMS HealthcareNOMS Healthcare Urinalysis macro (dipstick) panel (U)on 18-45-4674Ywipvbpxf, UANegativeNegative - 4(70) +++ mg/dLNOMS HealthcareBlood, UAPositiveNegative - 50 Abhi/mcLNOMS HealthcareComment on above:traceClarity, UAClearNOMS HealthcareColor, UAYellow NOMS HealthcareGlucose, UAPositiveNegative - 2000(110) ++++ mg/dLNOMS Healthcare Comment on above:100Interpretation and review of laboratory resultsAbnormalNOMS HealthcareKetones, UANegativeNegative - 160(16) ++++ mg/dLNOMS Healthcare Leukocytes, UAPositiveNegative - 500+++ Pura/mcLNOMS HealthcareComment on above: smallNitrite, UANegativeNegative - PositiveNOMS HealthcarepH, UA65 - 9NOMS HealthcareProtein, UATraceNegative - 2000(20) ++++ mg/dLNOMS HealthcareSpec Grav, UA1.021 - 1.03NOMS HealthcareUrobilinogen, UA0.20.2 - 12 mg/dLNOMS HealthcareNONC HealthcareUrinalysis macro (dipstick) panel (U)on 02-26-2025 Bilirubin, UANegativeNegative - 4(70) +++ mg/dLNOMS HealthcareBlood, UANegative Negative - 50 Abhi/mcLNOMS HealthcareClarity, UAClearNOMS HealthcareColor, UA YellowNOMS HealthcareGlucose, UANegativeNegative - 2000(110) ++++ mg/dLNOMS HealthcareInterpretation and review of laboratory resultsNormalNONC Healthcare Ketones, UANegativeNegative - 160(16) ++++ mg/dLNOMS HealthcareLeukocytes, UA NegativeNegative - 500+++ Pura/mcLNONC HealthcareNitrite, UANegativeNegative - PositiveNOMS HealthcarepH, UA65 - 9NOMS HealthcareProtein, UANegativeNegative - 1999(20) ++++ mg/dLNOMS HealthcareSpec Grav, UA1.021 - 1.03N[facility] Healthcare Urobilinogen, UA0.20.2 - 12 mg/dLNOMS HealthcareNOMS HealthcareUS OB TRANSVAGINALon 28-99-5131KW OB TRANSVAGINALEXAM: US OB TRANSVAGINAL HISTORY: Dating. COMPARISON: None [...] to a gestational age of 10 weeks 0days (+/- 6 days). There is no subchorionic [...] II, MD, PHD at 27-Jan-2025 07:45:14 AM [facility] TeleradiologyNormalNot AvailableComment on above:Order Comment: US OB TRANSVAGINAL No LMP recorded.IGP,APTIMA HPV,AGE GDLNon 81-46-2683GMO GDLN ACOG TESTINGNote. NOMS HealthcareComment on above:TESTS RESULT FLAG UNITS REF RANGE LAB Clinician Provided Cytology Information Source.............Cervix;Endocervix No. of containers..01 ThinPrep Vial Age Ronano YAS Violetta... FLAG LEGEND: L-Low Normal,H-High Normal,LL-Alert Low,HH-Alert High <-Panic Low,>-Panic High,A-Abnormal,AA-Critical Abnormal Performed at: 01 =G [facility] [address] [place] [address] Adriana Pfeiffer MD, IGP, RFX APTIMA HPV ASCUNote.NOMS HealthcareComment on above:TESTS RESULT FLAG UNITS REF RANGE LAB DIAGNOSIS: 02 NEGATIVE FOR INTRAEPITHELIAL LESION OR MALIGNANCY. Specimen adequacy: 02 Satisfactory for evaluation. Endocervical and/or squamous metaplastic cells (endocervical component) are present. Performed by: Kristyn Barbosa, Marketing Program Manager ([facility]) . 02 Note: Note 02 The [...] <-Panic Low,>-Panic High,A-Abnormal,AA-Critical Abnormal Performed at: [address] [address] Adriana Pfeiffer MD, Performed at: =G - [facility] [address] [id number] Java Development Manager: Adriana Pfeiffer MD, Phone: [phone] Performed at: [facility] [id number] Java Development Manager: Adriana Pfeiffer MD, Phone: [phone] [facility]ISYLiving[facility] , urineon 36-18-1885Mkhh HCG ( test) Ql (U)NegativeUPMC Western Psychiatric HospitalPOCT Influenza A/Influenza B/SARS-COV-2 VeritorOrdered By: Ellie Ruvalcaba on 65-12-1906Fhhetvlq Poct Influenza A AntigenNegativeSelect Medical Cleveland Clinic [facility], AvonExternal Poct Influenza B AntigenNegativeFormerly Hoots Memorial HospitalARS-CoV-2 (COVID-19) Ag IA.rapid Ql (Resp)NegativeUPMC Western Psychiatric HospitalPOCT rapid strep Aon 53-73-5743Zeyadgra Pear Picker Check Completed and PassedTrumbull Memorial HospitalInterpretation and review of laboratory resultsNoCone Health Alamance Regional. pyogenes Ag IA Ql (Unsp spec)NegativeNegativeSelect [facility] [place] ProMTrumbull Regional Medical CenterUS PELVIS AND TRANSVAGon 69-83-0558AE PELVIS AND TRANSVAG EXAM: Pelvic ultrasound HISTORY: [...] Electronically authenticated by: SAHARA APODACA Date: 2022-12-01 08:05[facility] HospitalUS PELVIS TRANSVAGon 23-77-4024RD PELVIS TRANSVAGEXAMINATION: US PELVIS TRANSVAG HISTORY: Pelvic and perineal [...] Electronically authenticated by: YAMEL GOMEZ Date: 2022-02-10 14:27[facility] Vital Signs Date TimeVital SignValuePerforming EiddphthyMecugywf98-74-6492 14:33-0400Body fykkpc120 cmNorm Patino NP Work Phone: [facility] HospitalUrkjevvcvg58-18-6986 14:33-0400Body mass index (BMI) [Ratio]33.13 kg/d7QftqksmoNorm Patino NP Work Phone: [facility] HospitalCaoeuijxjr29-19-1637 14:33-0400Body yupeyh18.82 kgNorm Patino CLINICAL MASSAGE THERAPIST Work Phone: [phone]-[facility] [address]Phrqazmxkg44-73-2871 14:33-0400Diastolic blood tniqdztl15 mm[Hg]Norm Patino CLINICAL MASSAGE THERAPIST Work Phone: [phone]-[facility] HospitalJoseph [place] [address]Zvsghqwvxv19-14-1400 14:33-0400Systolic blood ayecmxko859 mm[Hg]Norm Patino CLINICAL MASSAGE THERAPIST Work Phone: [phone] [place] [address]-15-2025 11:39-0400Body mass index (BMI) [Ratio]35.1 kg/j5Aiewd John DO Work Phone: [phone])166-[address] [place] [address]-15-2025 11:39-0400Body ysovtb38.87 kgCorey John DO Work Phone: [phone] [place] [address]-15-2025 11:39-0400Diastolic blood dtwfcutj99 mm[Hg]Henok John DO Work Phone: [phone])[facility] [place] [address]-15-2025 11:39-0400Systolic blood vvwvlsta295 mm[Hg]Henok John DO Work Phone: [phone] [place], [place] [address]Plahieoubv52-13-2083 14:13-0400Body mass index (BMI) [Ratio]34.9 kg/f4Caxbj John DO Work Phone: [phone] [place], [place] [address]Olrydefhym12-90-3761 14:13-0400Body odpvrp50.36 kgCorey John DO Work Phone: [phone] [place] [address]-27-2025 14:13-0400Diastolic blood ojlchuny33 mm[Hg]Henok John DO Work Phone: [phone] [place] [address]-27-2025 14:13-0400Systolic blood mm[Hg]Henok John DO Work Phone: [phone]-[facility] [address]Cnezfbulht05-81-4439 13:34-0400Body mass index (BMI) [Ratio]34.28 kg/m2Amy Sony PA Work Phone: [facility] HospitalGlheibhdwy85-74-5915 13:34-0400Body mhimao20.77 kgAmy Bayamon PA Work Phone: [facility] HospitalPmujiudjvi58-53-4325 13:34-0400Diastolic blood mm[Hg]Josi Sony PA Work Phone: [facility] HospitalWxvxhlryys74-19-4340 13:34-0400Systolic blood xidnsloi996 mm[Hg]Josi Sony PA Work Phone: [phone]-[facility] HospitalLnislleriv72-49-7524 14:47-0400Body mass index (BMI) [Ratio]34.06 kg/u4Fxneb John DO Work Phone: [facility] HospitalBstiraepaj80-97-4789 14:47-0400Body reqsby26.2 kg Henok John DO Work Phone: [facility] HospitalWkqcueljcx89-07-0357 14:47-0400Diastolic blood hcdbzudb00 mm[Hg]Henok John DO Work Phone: [phone]-[facility] HospitalVdltjlncmg65-40-9597 14:47-0400Systolic blood xfudabpe602 mm[Hg]Henok John DO Work Phone: [phone]-[facility] HospitalTisxoakpql82-94-4325 13:39-0400Body mass index (BMI) [Ratio]33.66 kg/m2Amy Sony PA Work Phone: [facility] HospitalSagnazrupv34-09-1348 13:39-0400Body etjkds35.18 kgJosi Duenas PA Work Phone: [phone] [place], [place] [address]Qomczspjtf23-13-5450 13:39-0400Diastolic blood mm[Hg]Josi Duenas PA Work Phone: [phone]-[facility] HospitalQqelfrymlx80-85-7825 13:39-0400Systolic blood mm[Hg]Josi Duenas PA Work Phone: [facility] HospitalTfgsdpindj43-96-3682 09:09-0400Body mass index (BMI) [Ratio]32.42 kg/m5Jgqov John DO Work Phone: [phone] [place], [place] [address]Rypwqbhgcs99-90-5745 09:09-0400Body hnpves55.01 kgCorey John DO Work Phone: [phone])[address] [place], [place] [address]606-19-2025 09:09-0400Diastolic blood wimlzdpm79 mm[Hg]Henok John DO Work Phone: 1(635)[facility] [place], [place] [address]Fkgapucjll53-79-0990 09:09-0400Systolic blood hsavkovk544 mm[Hg]Henok John DO Work Phone: [phone])[address] [place], [place] [address]605-21-2025 09:41-0400Body mass index (BMI) [Ratio]31 kg/m2Amy Sony HERNANDEZ Work Phone: [phone])[address] [place], [place] [address]605-21-2025 09:41-0400Body luvtij19.38 kgAmy Sony HERNANDEZ Work Phone: 1(111)[facility] [place], [place] [address]Wnqdpbyoam99-33-4969 09:41-0400Diastolic blood qdmbciyv10 mm[Hg]Josi HERNANDEZ Work Phone: [phone])[address] [place], [place] [address]605-21-2025 09:41-0400Systolic blood xvudlndt430 mm[Hg]Josi HERNANDEZ Work Phone: 1(840)[facility] [place], [place] [address]Bkeliystsj46-28-4293 09:50-0400Body mass index (BMI) [Ratio]29.94 kg/h1Xkjtz John DO Work Phone: [phone])[address] [place], [place] [address]604-15-2025 09:50-0400Body .66 kgCorey John DO Work Phone: 1(575)[facility] [place], [place] [address]Zxfniyaiwg03-93-1233 09:50-0400Diastolic blood inwzknbs80 mm[Hg]Henok John DO Work Phone: 1(111)[facility] [place], [place] [address]Gkwiwuqimx54-05-7553 09:50-0400Systolic blood ohbghcdo145 mm[Hg]Henok John DO Work Phone: [phone])[address] [place], [place] [address]01-28-2025 13:26-0500Body mass index (BMI) [Ratio]29.05 kg/h0Fjpno John DO Work Phone: [phone])[address] [place], [place] [address]01-28-2025 13:050Body dwzoyf86.39 kgCorey John DO Work Phone: [facility] HospitalPimdzozzgo80-55-5721 13:Diastolic blood mm[Hg]Henok John DO Work Phone: [facility] HospitalCvhkybjsca74-19-1274 13:Systolic blood vsrodwsj798 mm[Hg]Henok John DO Work Phone: [facility] HospitalBumvubmplx03-65-5128 15:040Body saczfx980.48 cmK[facility]08-20-2024 15:0400Body mass index (BMI) [Ratio]29.2 kg/o9IycfjxjqeKettering Health Behavioral Medical Center08-20-2024 15:040Body hbdsyt05.57 kgKettering Health Behavioral Medical Center04-29-2024 11:0400Body height 157.5 Francoiselizabeth AscencioSandra HEALTH EDUCATION DIRECTOR-MANAGER OF INVESTIGATIONS Work Phone: [facility] [place]04-29-2024 11:-0400Body mass index (BMI) [Ratio]28.55 kg/j0WcapmksMatt Ascencioillo HEALTH EDUCATION DIRECTOR-MANAGER OF INVESTIGATIONS Work Phone: [facility] [place]04-29-2024 11:-040Body .1 [degF]Matt Ascencioillo HEALTH EDUCATION DIRECTOR-MANAGER OF INVESTIGATIONS Work Phone: [facility] [place]04-29-2024 11:-040Body dksety20.81 kgMatt Sandra HEALTH EDUCATION DIRECTOR-MANAGER OF INVESTIGATIONS Work Phone: [facility] [place]04-29-2024 11:-040Diastolic blood hzqgynku74 mm[Hg]Matt Acsencioloreta HERNANDEZN-MANAGER OF INVESTIGATIONS Work Phone: [facility] [place]04-29-2024 11:-0400Heart rate 79 /minMatt Sandra HEALTH EDUCATION DIRECTOR-MANAGER OF INVESTIGATIONS Work Phone: [facility] [place]04-29-2024 11:21-0400 Respiratory rate20 /minValerie Sandra HEALTH EDUCATION DIRECTOR-MANAGER OF INVESTIGATIONS Work Phone: [facility] HospitalYun Yunms [employer] Oeazxd04-11-1151 11:21-7434UaS4% (BldA) [Mass fraction]100 %Matt Sandra APRN-MANAGER OF INVESTIGATIONS Work Phone: [facility] [employer] Ljcyph73-60-5624 11:21-0400Systolic blood munbbiuf911 mm[Hg]Matt Sandra APRN-MANAGER OF INVESTIGATIONS Work Phone: [facility] [employer] Finvmn32-03-0000 11:53-0400Body wmaauu259.5 cmCuco Ceron HEALTH EDUCATION DIRECTOR-MANAGER OF INVESTIGATIONS Work Phone: [facility] [employer] [id number] 11:53-0400Body mass index (BMI) [Ratio]28.9 kg/d5HgrjlkCuco Ceron HEALTH EDUCATION DIRECTOR-MANAGER OF INVESTIGATIONS Work Phone: [facility] [employer] [id number] 11:53-0400Body pzchmcnlbec09.2 [degF]Cuco Ceron HEALTH EDUCATION DIRECTOR-MANAGER OF INVESTIGATIONS Work Phone: [facility] [employer] Emaefx65-17-3814 11:53-0400Body yebdmr36.67 kgCuco Ceron HEALTH EDUCATION DIRECTOR-MANAGER OF INVESTIGATIONS Work Phone: [facility] [employer] Doldtk04-50-1075 11:53-0400Diastolic blood ruhwlwlm04 mm[Hg]Cuco Ceron HEALTH EDUCATION DIRECTOR-MANAGER OF INVESTIGATIONS Work Phone: [facility] [employer] Uyrabh78-47-4563 11:53-0400Heart rate 97 /minCuco Ceron HEALTH EDUCATION DIRECTOR-MANAGER OF INVESTIGATIONS Work Phone: [facility] [employer] Pwuivj94-73-8911 11:53-0400 Respiratory rate18 /minCuco Ceron HEALTH EDUCATION DIRECTOR-MANAGER OF INVESTIGATIONS Work Phone: [facility] [employer] Gqhypv23-35-8079 11:53-9844LmW1% (BldA) [Mass fraction]97 %Cuco Ceron HEALTH EDUCATION DIRECTOR-MANAGER OF INVESTIGATIONS Work Phone: [facility] [employer] Pjvhuu08-30-0252 11:53-0400Systolic blood pumnskrj639 mm[Hg]Cuco Ceron HEALTH EDUCATION DIRECTOR-MANAGER OF INVESTIGATIONS Work Phone: [facility] 10:16-0500Body ssykza353.5 Alfredo Sandra HEALTH EDUCATION DIRECTOR-MANAGER OF INVESTIGATIONS Work Phone: [facility]-20-2024 10:16-0500Body mass index (BMI) [Ratio]29.23 kg/i0GmbscmeMatt Sandra APRN-MANAGER OF INVESTIGATIONS Work Phone: [facility]2024 10:16-0500Body omuecltycju92.3 [degF]Matt Sandra APRN-MANAGER OF INVESTIGATIONS Work Phone: [facility]-20-2024 10:16-0500Body xilqim29.48 kgMatt Sandra APRN-MANAGER OF INVESTIGATIONS Work Phone: [facility]-20-2024 10:16-0500Diastolic blood dfkkawha54 mm[Hg]Matt Sandra APRN-MANAGER OF INVESTIGATIONS Work Phone: [facility]-2024 10:16-0500Heart rate 72 /minMatt Sandra APRN-MANAGER OF INVESTIGATIONS Work Phone: [facility]-20-2024 10:16-9562AxT3% (BldA) [Mass fraction]99 %Matt Sandra APRN-MANAGER OF INVESTIGATIONS Work Phone: [facility]-20-2024 10:16-0500Systolic blood dzbphnau763 mm[Hg]Matt Sandra HEALTH EDUCATION DIRECTOR-MANAGER OF INVESTIGATIONS Work Phone: [facility] Encounters Encounter DateEncounter TypeCare ProviderFacilityStart: 08-12-2025 End: 80-40-7692swubjxtsrcJGXJQTGI EBERLYNot AvailableStart: 08-12-2025 End: 13-35-4439Iktggn follow up visit related to original Stefan Patino NP Work Phone: [facility] Michelle OBGYNComment on above:Postoperative visit; S/P sectionStart: 08-12-2025 End: 58-62-2349Lwavgk Saul Patino CLINICAL MASSAGE THERAPIST Work Phone: NOYV [place] OBGYNStart: 08-12-2025 End: 59-90-4046Mesugk flowsJustyn Patino CLINICAL MASSAGE THERAPIST Work Phone: NOPN [place] OBGYNStart: 08-07-2025 End: 62-12-9623Rrgrbrjxq Result EncounterCorey John DO Work Phone: NOJH External Department UnsolicitedStart: 08-07-2025 End: 97-80-1415Hdbdyflrc Result EncounterCorey John DO Work Phone: NOVI External Department UnsolicitedStart: 08-06-2025 End: 08-21-1308Jwhhvognk Result EncounterCorey John DO Work Phone: NOQX External Department UnsolicitedStart: 08-06-2025 End: 22-45-9066Opvtqynkj Result EncounterCorey John DO Work Phone: NOKN External Department UnsolicitedStart: 08-05-2025 End: 75-55-7176Xykxfrmfi Result EncounterCorey John DO Work Phone: NOXS External Department UnsolicitedStart: 08-05-2025 End: 37-74-1351Toddsfrxg Result EncounterCorey John DO Work Phone: NORX External Department UnsolicitedStart: 08-04-2025 End: 96-91-9954Mpuqyravj Result EncounterCorey John DO Work Phone: NOMS External Department UnsolicitedStart: 08-04-2025 End: 43-63-1974Fudbrixdq Result EncounterCorey John DO Work Phone: NOCQ External Department UnsolicitedStart: 07-31-2025 End: 53-82-7908Gtjiiqhia Result EncounterNorm Pulliamly CLINICAL MASSAGE THERAPIST Work Phone: noms External Department UnsolicitedStart: 07-31-2025 End: 17-54-4683Qmhtpmsfu Result EncounterNorm Pulliamly CLINICAL MASSAGE THERAPIST Work Phone: noms External Department UnsolicitedStart: 07-29-2025 End: 17-80-6129Xhaief outpatient visit 15 minutesCorey John DO Work Phone: noms [place] OBGYNComment on above:Third trimester ([facility]); 36 weeks gestation of ([facility])Start: 07-29-2025 End: 24-38-0949dndvoicfckXMJRP FAZIONot AvailableStart: 07-24-2025 End: 72-80-6191Hakgibgbk Result EncounterNorm Scanlonerly CLINICAL MASSAGE THERAPIST Work Phone: noms External Department UnsolicitedStart: 07-24-2025 End: 52-48-0799Imrwetlsj Result EncounterNorm Pulliamly CLINICAL MASSAGE THERAPIST Work Phone: noms External Department UnsolicitedStart: 07-17-2025 End: 33-59-0349Rzfxeoxnb Result EncounterNorm Pulliamly CLINICAL MASSAGE THERAPIST Work Phone: noms External Department UnsolicitedStart: 07-17-2025 End: 53-54-9635Fjqunmemz Result EncounterNorm Scanlonerly CLINICAL MASSAGE THERAPIST Work Phone: noms External Department UnsolicitedStart: 07-10-2025 End: 49-46-9718Yfbecl outpatient visit 15 minutesCorey John DO Work Phone: noms [place] OBGYNComment on above:Excessive growth affecting management of in third trimester, single or unspecified fetus ([facility]) (Primary Dx); Third trimester ([facility]); 33 weeks gestation of ([facility]); Hematuria, unspecified typeStart: 07-10-2025 End: 27-45-6615frctvrbducSKMLI FAZIONot AvailableStart: 06-26-2025 End: 35-45-1405Doqeso flowsDaisy Kimvamshi HERNANDEZ Work Phone: NOMS [place] OBGYNStart: 06-26-2025 End: 64-07-8859Sptxvx flowsalvaroJosi HERNANDEZ Work Phone: noMS [facility] OBGYNStart: 06-26-2025 End: 94-95-9553Vjysle outpatient visit 15 minutesAmy Sony HERNANDEZ Work Phone: N[facility] [place] OBGYNComment on above:Third trimester ([facility]); 31 weeks gestation of ([facility])Start: 06-26-2025 End: 35-48-3892ymdoeqmwumAIL RAMEYNot AvailableStart: 06-11-2025 End: 48-10-6308traqdhbxutFESDQ FAZIONot AvailableStart: 06-11-2025 End: 61-64-0693Psggvf outpatient visit 15 minutesCorey John DO Work Phone: [facility]S Michelle OBGYNComment on above:Third trimester ([facility]); 29 weeks gestation of ([facility]); Anemia affecting in third trimester ([facility]); Excessive growth affecting management of , antepartum, single or unspecified fetus ([facility])Start: 06-11-2025 End: 17-17-0120ogdtjmwrmuTCMWB FAZIONot AvailableStart: 05-29-2025 End: 54-22-5150Yakayhhoy Result EncounterCorey John DO Work Phone: noMS External Department UnsolicitedStart: 05-29-2025 End: 64-54-2506Cwiopenug Result EncounterCorey John DO Work Phone: noms External Department UnsolicitedStart: 05-29-2025 End: 16-06-4840ucmmcwfcsyFTW RAMEYNot AvailableStart: 05-29-2025 End: 43-01-2321Tlzojc outpatient visit 15 minutesJosi HERNANDEZ Work Phone: noms BCP OBComment on above:Size of fetus inconsistent with dates in second trimester ([facility]) (Primary Dx); Second trimester ([facility]); 27 weeks gestation of ([facility])Start: 05-02-2025 End: 66-88-1268Ehdghn flowsheetCorey John DO Work Phone: NOWN BCP OBStart: 05-02-2025 End: 63-86-4453Aamrdt flowsheetCorey John DO Work Phone: NOOQ BCP OBStart: 05-02-2025 End: 72-92-9788jrognyynykKELBV FAZIONot AvailableStart: 05-02-2025 End: 15-13-7407Ehwlbl outpatient visit 15 minutesCorey John DO Work Phone: NOMS BCP OBComment on above:Diabetes mellitus screening; Second trimester ([facility]); 23 weeks gestation of ([facility])Start: 04-10-2025 End: 89-64-4786Pfcwwuxux Result EncounterCorey John DO Work Phone: NONK External Department UnsolicitedStart: 04-10-2025 End: 08-49-3250Sknjdeyqn Result EncounterCorey John DO Work Phone: NOEN External Department UnsolicitedStart: 04-03-2025 End: 73-58-3503Quasjt flowsDaisy HERNANDEZ Work Phone: NOGP BCP OBStart: 04-03-2025 End: 38-91-8770Acpuzi flowsheetJosi HERNANDEZ Work Phone: NOMS BCP OBStart: 04-03-2025 End: 18-16-5252Iuwtjpfg Result EncounterJosi HERNANDEZ Work Phone: NOMS External Department UnsolicitedStart: 04-03-2025 End: 61-37-5407Sgudhp outpatient visit 15 minutesJosi HERNANDEZ Work Phone: NOMS BCP OBComment on above:Second trimester ; 18 weeks gestation of ; Screening, , for anatomic survey; Screening examination for STI; Need for maternal serum alpha-protein (MSAFP) screeningStart: 04-03-2025 End: 93-57-6950kdobyxufpzGJZ RAMEYNot AvailableStart: 02-26-2025 End: 80-88-1989Qcjjrx flowsheetCorey John DO Work Phone: NOPF BCP OBStart: 02-26-2025 End: 00-32-9555Qbanbp flowsheetCorey John DO Work Phone: NOFJ BCP OBStart: 02-26-2025 End: 28-54-2991Lwphsk outpatient visit 15 minutesCorey John DO Work Phone: NOAR BCP OBComment on above:Second trimester ; 12 weeks gestation of pregnancyStart: 02-26-2025 End: 45-88-4261syqnvuevfeEEEUN FAZIONot AvailableStart: 01-25-2025 End: 30-14-6695csvwyeddttPUGDD FAZIONot AvailableStart: 12-11-2024 End: 25-09-2219Thyvwn flowsheetCorey John DO Work Phone: NOZX BCP OBStart: 12-11-2024 End: 53-39-2808Nmubtt flowsheetCorey John DO Work Phone: NOME BCP OBStart: 12-11-2024 End: 13-42-9902Vdxaksczc Result EncounterCorey John DO Work Phone: NOJD External Department UnsolicitedStart: 12-11-2024 End: 26-40-1721Iinqrxj encounter procedureCorey John DO Work Phone: NOMS HealthcareStart: 12-11-2024 End: 20-47-2785Lthmulpq preventive med est patient 18-39 yrsCorey John DO Work Phone: NOMS BCP OBComment on above:Well woman exam with routine gynecological examStart: 12-11-2024 End: 42-50-5672tvawqgymhlGZGGI FAZIONot AvailableStart: 07-03-2024 End: 94-91-6770mzrqbldbrcSytghjdgzK[facility] Work Phone: Start: 07-03-2024 End: 95-43-6769Hgjmmnf encounter procedureEcu [facility] Work Phone: Start: 25-70-5512Kil-patient / Non-visitEcu Health [facility] Gastro[facility]ology Work Phone: Start: 03-12-2024 End: 58-84-8815jgtklfssdmJYQNQRZLincoln [facility] Start: 03-12-2024 End: 68-71-9780Gxjste outpatient visit 15 minutesMatt Sandra HEALTH EDUCATION DIRECTOR-MANAGER OF INVESTIGATIONS Work Phone: [facility] Internal Medicine - Family MedicineComment on above:Anxiety and depression (Primary Dx); Nausea; Syncope, unspecified syncope typeStart: 02-27-2024 End: 39-41-4697wgbxrpznqrDQDMHT Jose [facility] Hospitaltart: 63-44-3282Axyyfsazj encounterMikala Murphy CMASouthwest [facility] Hospitalt[facility]: 02-08-2024 End: 76-48-0352utmphddkffGCFLKULincoln Hospital Ambulatory PPGStart: 02-08-2024 End: 44-50-0090Hganju outpatient visit 15 minutesCuco Ceron HEALTH EDUCATION DIRECTOR-MANAGER OF INVESTIGATIONS Work Phone: [facility] Internal Medicine - Family MedicineComment on above:Viral upper respiratory tract infection (Primary Dx); Chills; Epigastric pain; Syncope and collapse; Gastroesophageal reflux disease, unspecified whether esophagitis presentStart: 01-03-2024 End: 17-01-9100kvxojoyyrgGLQKGKWLincoln Hospital [facility] Start: 01-03-2024 End: 78-32-1150Cuunym outpatient visit 15 minutesMatt Sandra HEALTH EDUCATION DIRECTOR-MANAGER OF INVESTIGATIONS Work Phone: [facility] Internal Medicine - Family MedicineComment on above:Anxiety and depression (Primary Dx)Start: 12-01-2022 End: 73-63-7295pphvrgbanaCJ HENOK FAZIOFacility:Q4Upqza: 11-30-2022 End: 57-91-5891zkvkddspdqZW HENOK FAZIOFacility:C5Pgtrx: 02-10-2022 End: 15-25-9429dilfbruggjNG HENOK FAZIOFacility:R8Juffp: 07-29-2017 End: 90-17-5526Jfdduigio department patient visitSt. [facility] Procedures DateProcedureProcedure DetailPerforming ClinicianStart: 00-36-6885VDV CBC WITH AUTO DIFFCorey John DO Work Phone: Start: 80-04-9192NFO CBC WITH AUTO DIFFCorey John DO Work Phone: Start: 25-08-0295YXT CBC WITH AUTO DIFFCorey John DO Work Phone: Start: 75-65-2692CISA CBC WITH PLATELET NO DIFFERENTIALCorey John DO Work Phone: Start: 82-59-8252HF OB BPP W NON-STRESSKristina Carey CLINICAL MASSAGE THERAPIST Work Phone: Start: 95-49-6499Qghtx dip stick/tablet rgnt non-auto w/o micrscpCorey John DO Work Phone: Start: 83-60-3367JQ OB BPP W NON-STRESSKristina Carey CLINICAL MASSAGE THERAPIST Work Phone: Start: 91-73-5273TA OB BPP W NON-STRESSKristina Carey CLINICAL MASSAGE THERAPIST Work Phone: Start: 25-50-8719Fhmmy dip stick/tablet rgnt non-auto w/o micrscpCorey John DO Work Phone: Start: 74-71-0998Zpvaz dip stick/tablet rgnt non-auto w/o micrscpAmy Sony PA Work Phone: Start: 90-00-3866Ofhau dip stick/tablet rgnt non-auto w/o micrscpCorey John DO Work Phone: start: 48-52-7730Yupep dip stick/tablet rgnt non-auto w/o micrscpAmy Sony HERNANDEZ Work Phone: Start: 21-65-1194MKQ CBC WITH AUTO DIFFCorey John DO Work Phone: Start: 49-39-0064Afwrj dip stick/tablet rgnt non-auto w/o micrscpCorey John DO Work Phone: Start: 11-62-6712KA OB ANATOMYCorey John DO Work Phone: Start: 68-16-5074LE OB CERVICAL LENGTHCorey John DO Work Phone: Start: 22-45-2659AXNTHGJJU VAGINITIS (HTRX)Josi HERNANDEZ Work Phone: Start: 97-13-9652Segms dip stick/tablet rgnt non-auto w/o micrscpAmy Sony HERNANDEZ Work Phone: Start: 05-21-7133Towpj dip stick/tablet rgnt non-auto w/o micrscpCorey John DO Work Phone: Start: 08-59-0379PYW,APTIMA HPV,AGE GDLNCorey [facility] DO Work Phone: Start: 92-35-9551Fizvlt-up visitFollow-upVALERD SANDRAStart: 77-07-8430Eujks test visual color cmprsn methsValerielizabeth Sandra HEALTH EDUCATION DIRECTOR-[facility] Work Phone: Start: 57-37-3990Dxwme depression screening assessment Matt Sandra HEALTH EDUCATION DIRECTOR-[facility] Work Phone: Start: 96-73-3940Igsqmaapy streptococcus group Francisbradley Ceron HEALTH EDUCATION DIRECTOR-[facility] Work Phone: Start: 98-98-5132VPHP INFLUENZA A/INFLUENZA B/SARS-COV-2 VERITORBrbradley Ceron HEALTH EDUCATION DIRECTOR-[facility] Work Phone: Start: 51-83-0758Hcfjb depression screening assessment Cuco Ceron HEALTH EDUCATION DIRECTOR-[facility] Work Phone: Start: 07-42-8880Eqzyw depression screening assessment Matt Sandra HEALTH EDUCATION DIRECTOR-MANAGER OF INVESTIGATIONS Work Phone: Start: 87-59-0720Hdkwgtvgsri observation [Identifier] in Cervix by Cyto stainValelupilloelizabeth Sandra HEALTH EDUCATION DIRECTOR[facility] Work Phone: H/O: sectionS/P sectionNorm Patino CLINICAL MASSAGE THERAPIST Work Phone: Plan of Treatment DateCare ActivityDetailAuthorStart: 12-16-2025 End: 60-50-0477Nhgaafa encounter procedureNOMS BCP OBStart: 09-18-2025 End: 18-50-3866oardoqrgaj23/05/2025 10:30 AM EST Visit [facility] Michelle HERNANDEZ [address] [address] Norm Patino, CLINICAL MASSAGE THERAPIST [address] [place] [phone] N[facility]S Michelle OBGYNStart: 08-05-2025 End: 52-53-3527Coxujsp encounter eiochzzsp70/22/2025 10:50 AM EDT Routine [facility] Michelle HERNANDEZ [address] [address] Henok Lopez DO [address] [place] [place], [place] [id number] NOM[facility] Michelle OBGYNStart: 07-31-2025 End: 68-47-2704Euxgvrladzxh / ancillary services dyaszscliu10/17/2025 9:30 AM EDT Ancillary Procedure [facility] Michelle HERNANDEZ [address] [place] [address] NOM[facility] Michelle OBGYNStart: 07-29-2025 End: 98-91-6606KCOSJPA, GROUP B STREP WITH SUSCEPTIBLITYCULTURE, GROUP B STREP WITH SUSCEPTIBLITY Lab Routine Third trimester ([facility]) Expected: 07/29/2025, Expires: 07/29/2026[facility] Work Phone: comment on above:Expected: 07/29/2025, Expires: 07/29/2026Start: 07-29-2025 End: 32-75-1779Ctcynvc encounter ztadgpeag23/15/2025 9:20 AM EDT Routine [facility] [address] [place], [id number] Josi Duenas PA [address] [place] [address] NOMS Michelle OBGYNStart: 07-15-2025 Influenza vaccinationSTEWARD HEALTH CARE SYSTEM HealthcareStart: 07-10-2025 End: 48-46-2487Phyxpcy encounter /27/2025 2:10 PM EDT Routine [facility] [address] [place], [id number] Henok Lopez DO [address] [place] [address] [facility] [place] OBGYNStart: 07-10-2025 End: 22-75-9826YV biophysical profile w non stress testUS biophysical profile w non stress test Imaging Routine Excessive growth affecting management of in third trimester, single or unspecified fetus ([facility]) Expected: 07/10/2025 (Approximate), Expires: 01/10/2026NONC HealthcareComment on above:Expected: 07/10/2025 (Approximate), Expires: 01/10/2026Start: 07-10-2025 End: 86-09-9136YT for pregnancyUS OB follow up transabdominal approach Imaging Routine Excessive growth affecting managementof in third trimester, single or unspecified fetus ([facility]) Expected: 07/10/2025, Expires: 11/09/2025[facility] Work Phone: comment on above:Expected: 07/10/2025, Expires: 11/09/2025Start: 07-10-2025 End: 17-90-7456Xzazjussxrsd / ancillary services /27/2025 1:30 PM EDT Ancillary Procedure [facility] [address] [address] [facility] [place] OBGYNStart: 06-26-2025 End: 11-20-2405Ekthdse encounter procedureNOMS [place] OBGYNComment on above: ArrivedStart: 06-11-2025 End: 01-05-1190Xbshgod encounter gelbvbxwp85/29/2025 2:00 PM EDT Routine [facility] BCP OB [address] [address] Henok Lopez DO [address] [place], [place] [id number] NOMS BCP OBStart: 06-11-2025 End: 53-48-7055DZ for pregnancyUS OB follow up transabdominal approach Imaging Routine Excessive growth affecting managementof , antepartum, single or unspecified fetus ([facility]) Expected: 06/11/2025, Expires: 10/12/2025 [facility] Work Phone: comment on above:Expected: 06/11/2025, Expires: 10/12/2025Start: 06-11-2025 End: 25-82-8795Kfllgrevmrif / ancillary services zyjoepkagc55/29/2025 1:30 PM EDT Ancillary Procedure [facility] [address] [address] NOMS BCP OBStart: 05-29-2025 End: 50-86-0669WS for pregnancyUS OB follow up transabdominal approach Imaging Routine Size of fetus inconsistent with dates in second trimester ([facility]) Expected: 05/29/2025, Expires: 09/29/2025[facility] Work Phone: comment on above:Expected: 05/29/2025, Expires: 09/29/2025Start: 05-29-2025 End: 60-66-0447Lylynvy encounter imzoufhsk72/16/2025 1:20 PM EDT Routine [facility] [address] [address] Josi Duenas PA [address] [place], [place] [id number] NOMS BCP OBStart: 05-02-2025 End: 04-45-6781ENS panel - Blood by Automated countCBC Lab Routine Diabetes mellitus screening Expected: 05/02/2025 (Approximate), Expires: 05/02/2026[facility] Work Phone: comment on above:Expected: 05/02/2025 (Approximate), Expires: 05/02/2026Start: 05-02-2025 End: 88-45-3081Cldntvncxsf of glucose 1 hour after glucose challenge for glucose tolerance testGlucose tolerance, 1 hour Lab Routine Diabetes mellitus screening Expected: 05/02/2025 (Approximate), Expires: 05/02/2026[facility] HealthcareComment on above:Expected: 05/02/2025 (Approximate), Expires: 05/02/2026Start: 05-02-2025 End: 40-59-9686Epvgrww encounter epavdgpfl99/19/2025 8:50 AM EDT Routine [facility] [address] [phone] Henok Lopez DO [address] [place], [place] [id number] NOMS BCP OBStart: 04-03-2025 End: 92-21-3759Fjaux fetoprotein, maternalAlpha fetoprotein, maternal Lab Routine Need for maternal serum alpha-protein (MSAFP) screening Expected: 04/03/2025 (Approximate), Expires: 05/04/2025[facility] HealthcareComment on above: Expected: 04/03/2025 (Approximate), Expires: 05/04/2025Start: 04-03-2025 End: 87-29-1277WW for pregnancyUS OB 14+ weeks anatomy scan Imaging Routine Screening, , for anatomic survey Expected: 04/03/2025, Expires: 07/04/2025NOMS HealthcareComment on above:Expected: 04/03/2025, Expires: 07/04/2025Start: 04-03-2025 End: 16-62-1141Wigzlhl encounter procedureNOADVENTIST HEALTH DELANO OBComment on above:Arrived Start: 35-21-7011Aesgk BMI ScreeningAdult BMI ScreeningMercy Health Tiffin Hospitalca [facility] Start: 93-33-0884Qsjenjsxzf ScreeningDepression ScreeningMercy Health Tiffin Hospitalca [facility] Start: 03-89-8914Gjlnhbw ScreeningTobacco ScreeningMercy Health Tiffin Hospitalca [facility] SystemStart: 02-26-2025 End: 05-43-3760Edgluul encounter mfgbbsnzi78/15/2025 9:50 AM EDT Routine [facility] [address] [place] [address] JohnHenok arevalo, DO [address] [place], [place] [address] ArrivedPALOMAR [facility] OBComment on above: ArrivedStart: 89-65-7677Yzoit BMI ScreeningAdult BMI ScreeningProParkview Health Montpelier Hospitalca Health SystemStart: 65-91-5370Aoovawuuux ScreeningDepression ScreeningProParkview Health Montpelier Hospitalca [facility] SystemStart: 23-58-8017Fpapzbo ScreeningTobacco ScreeningBrightlook HospitalMedica [facility] Start: 41-59-1832Bmlvk BMI Follow Up PlanAdult BMI Follow Up PlanProMedica Health SystemStart: 86-53-3822Vwlsw BMI ScreeningAdult BMI ScreeningProMedica Health SystemStart: 57-89-5097Qleqpyojpu ScreeningDepression ScreeningProMedica Health SystemStart: 24-19-6927Buecfmr ScreeningTobacco ScreeningProParkview Health Montpelier Hospitalca Health SystemStart: 12-11-2024 End: 12-61-2454Mqohqdz encounter orueumelj39/28/2025 1:20 PM EST Office Visit [facility] [address] [place] [address] Henok Lopez, DO [address] [place] [address] ArrivedNOMS BCP OBComment on above:ArrivedStart: 51-54-6507Atboanweo vaccinationInfluenza Vaccine (#1)[facility]OM[facility] HealthcareStart: 03-12-2024 End: 28-06-7318Zikwovt encounter ynodapnmb34/29/2024 11:20 AM EDT Office Visit [facility] [address] [place] [address] Matt Sandra, HEALTH EDUCATION DIRECTOR-MANAGER OF INVESTIGATIONS [address] [place] [address] [facility] - Family MedicineStart: 02-21-2024 End: 52-68-6074Hguykxp encounter jquhowphn13/09/2024 9:40 AM EDT Office Visit [facility] [address] [place] [address] Matt Sandra, HEALTH EDUCATION DIRECTOR-MANAGER OF INVESTIGATIONS [address] [place] [address] [facility] - Family MedicineStart: 02-08-2024 End: 31-65-8327Iwgwt monitorEvent monitor Cardiac Services Routine Syncope and collapse Expected: 02/08/2024, Expires: 02/07/2025[facility] Work Phone: Comment on above:Expected: 02/08/2024, Expires: 02/07/2025Start: 65-58-5778Frwqwguiy for malignant neoplasm of cervixPap Smear [facility] SystemStart: 67-16-4724VGqC,Tdap and Td Vaccines (6 - Tdap) DTaP,Tdap and Td Vaccines (6 - Tdap)[facility] AvonBacteria identified in Urine by CultureUrine culture Microbiology Routine Hematuria, unspecified type Ordered: 07/10/2025[facility] HealthcareComment on above:Ordered: 07/10/2025 End: 35-78-5597Jbkho metabolic 2000 panel - Serum or PlasmaBasic Metabolic Panel Lab Routine Nausea 1 Occurrences starting 03/12/2024 until 03/12/2025ProDekalb [facility] Health SystemComment on above:1 Occurrences starting 03/12/2024 until 03/12/2025 End: 21-87-5776WMP W Auto Differential panel - BloodCBC auto differential Lab Routine Nausea 1 Occurrences starting 03/12/2024 until 03/12/2025ProPark[facility] Work Phone: Comment on above:1 Occurrences starting 03/12/2024 until 03/12/2025HLAMYDIA TRACHOMATIS (GENITO/STI)CHLAMYDIA TRACHOMATIS (GENITO/STI) Lab Routine Screening examination for STI Ordered: 04/03/2025[facility] HospitalComment on above:Ordered: 04/03/2025ytology Cervical or vaginal smear or scraping studyPap Smear Pathology and Cytology Routine Well woman exam with routine gynecological exam Ordered: 12/11/2024[facility] Work Phone: comment on above:Ordered: 12/11/2024Hepatic function [facility] CenterNeisseria gonorrhoeae DNA [Presence] in Unspecified specimen by MARION with probe detectionNeisseria gonorrhea DNA probe, direct Lab Routine Screening examination for STI Ordered: 04/03/2025[facility] HospitalComment on above:Ordered: 04/03/2025SURESWAB(R) ADVANCED VAGINITIS PLUS, TMASURESWAB(R) ADVANCED VAGINITIS PLUS, TMA Pathology and Cytology Routine Screening examination for STI Ordered: 04/03/2025[facility] Work Phone: comment on above:Ordered: 04/03/2025US Abdomen limited [facility] Immunizations Immunization DateImmunizationNotesCare DywmdedqKcpjikuy31-11-9491edkqdiefwx, tetanus toxoids and acellular pertussis vaccineValerie Sandra HEALTH EDUCATION DIRECTOR-MANAGER OF INVESTIGATIONS Work Phone: [facility]09-16-2002measles, mumps and rubella virus vaccineValerie Sandra HEALTH EDUCATION DIRECTOR-MANAGER OF INVESTIGATIONS Work Phone: [facility] [place]onBhdzhs40-73-9401mcuezjqyav vaccine, inactivatedValerie Sandra HEALTH EDUCATION DIRECTOR-MANAGER OF INVESTIGATIONS Work Phone: [facility] [place]onTpqonr58-39-7528dbpxjmcmhb, tetanus toxoids and acellular pertussis vaccineValerie Sandra HEALTH EDUCATION DIRECTOR-MANAGER OF INVESTIGATIONS Work Phone: [facility] [place]onBigbxy76-42-5897pdtaujrjfor influenzae type b vaccine, conjugate unspecified formulationValerie Sandra HEALTH EDUCATION DIRECTOR-MANAGER OF INVESTIGATIONS Work Phone: [facility] [place]08-01-1997measles, mumps and rubella virus vaccineValerie Sandra HEALTH EDUCATION DIRECTOR-MANAGER OF INVESTIGATIONS Work Phone: [facility] [place]onWpfydo10-04-0732bmuhkdkivb, tetanus toxoids and acellular pertussis vaccineValerie Sandra HEALTH EDUCATION DIRECTOR-MANAGER OF INVESTIGATIONS Work Phone: [facility] [place]onNtryor69-65-2352eaviptumkmv influenzae type b vaccine, conjugate unspecified formulationValerie Sandra HEALTH EDUCATION DIRECTOR-MANAGER OF INVESTIGATIONS Work Phone: [facility] [place]onHuzcbp15-77-7557zikgghbjj B vaccine, adult dosageValerie Sandra HEALTH EDUCATION DIRECTOR-MANAGER OF INVESTIGATIONS Work Phone: [facility] [place]onSmsxet56-70-8017fzgtwjzxve vaccine, inactivatedValerie Sandra HEALTH EDUCATION DIRECTOR-MANAGER OF INVESTIGATIONS Work Phone: [facility] [place]onUaabcf92-94-3674nremxtzinu, tetanus toxoids and acellular pertussis vaccineValerie Sandra HEALTH EDUCATION DIRECTOR-MANAGER OF INVESTIGATIONS Work Phone: [facility] [place]onQrmcaf76-70-2647wcszyrewbkj influenzae type b vaccine, conjugate unspecified formulationValerie Sandra HEALTH EDUCATION DIRECTOR-MANAGER OF INVESTIGATIONS Work Phone: [facility] [place]onPjhbjv01-10-3573znmaqbavbk vaccine, inactivatedValerie Sandra HEALTH EDUCATION DIRECTOR-MANAGER OF INVESTIGATIONS Work Phone: [facility] [place]onWblxii84-20-3811trntvvfipc, tetanus toxoids and acellular pertussis vaccineValerie [facility] HEALTH EDUCATION DIRECTOR-[facility] Work Phone: [facility] [place]onAxbcfi25-36-5342ifcftwbnxms influenzae type b vaccine, conjugate unspecified formulationValerie [facility] HEALTH EDUCATION DIRECTOR-[facility] Work Phone: [facility] [place]onDscvdh82-22-9058jksehtxbq B vaccine, adult dosageValerie Sandra HEALTH EDUCATION DIRECTOR-[facility] Work Phone: [facility] [place]onNbgrqg50-88-7614ioxklyclrx vaccine, inactivatedValerie [facility] Work Phone: [facility] [place]onBzibvw05-86-7627nzqjdnxie B vaccine, adult dosageValerie [facility] Work Phone: [facility] Payers DatePayer CategoryPayerPolicy ID2023Medicaid [id number] [id number] 2..1.016404.3.57[id number] 2.0.1.799898.3.57[id number] 2.0.1.710986.3.57[id number] 2..1.685258.3.57[id number] 2.0.1.899792.3.579.[id number] 2.0.1.510954.3.57[id number] 2.16840.1.290589.3.579.[id number] 2.16840.1.370618.3.579.[id number] 2.16840.1.777323.3.579.2.0[id number] 2.16840.1.605387.3.57[id number] 2.840.1.123027.3.57[id number] 2.16840.1.154120.3.57[id number] 2.840.1.043431.3.57[id number] 2.840.1.050947.3.57[id number] 2.840.1.043503.3.57[id number] 2.840.1.172611.3.57[id number] 2.0.1.772243.3.579.2.[id number] 2.16840.1.287372.3.579.2.724675-13-8246Enizqmc9025522 2.16840.1.846057.3.579.2.513696-35-3242Tqjlxsq5631927 2.840.1.503752.3.579.2.898782-42-8476Sdoncly7526093 2.16840.1.628950.3.579.2.410643-50-1868Ieagvmv0096245 2.16.840.1.770985.3.579.2.4[id number] Social History DateTypeDetailFacilityStart: 07-04-2023 End: 79-22-0173Vtgzmtj smoking status NHISNever smoked tobacco (finding) [facility] Centertart: 44-59-5299Rub Assigned At BirthFemale [facility] Centertart: 07-04-2023 End: 71-18-4758Wispfta use and exposureSmokeless tobacco non-userSumma Health SystemStart: 12-05-2023 End: 01-52-8624Epluauygl beverage intakeLifetime non-drinker (finding)[facility] HealthcareStart: 12-05-2023 End: 96-90-6551Gwbgxer of Social functionProDekalb Regional [facility] Center Health SystemStart: 12-05-2023 End: 51-98-1850Rfqxgvi use panelProTrinity Health System [facility] SystemStart: 12-80-8135Grs assigned at birthNot on fileSumma Health SystemStart: 01-03-2024 End: 12-90-0027Ytsgvdf intakeCurrent non-drinker of alcohol (finding)ProMedic Health SystemDo you belong to any clubs or organizations such as episcopal groups, unions, fraternal or athletic groups, or school groups?NoPLake Charles Memorial Hospital Health System Are you now , , , , never or living with a partner?Never marriedProMedica Health SystemHow often to you have a drink containing alcohol?Monthly or lessProMedica Health SystemHow many standard drinks containing alcohol do you have on a typical day?1 or 2ProMedriverview regional medical center Health SystemHow often do you have 6 or more drinks on 1 occasion?Less than monthly [facility] SystemHow hard is it for you to pay for the very basics like food, housing, medical care, and heatingSomewhat hardProTrinity Health System [facility] System Adolescent depression screening jnjhzmodax8MccVrmynn Health SystemDo you feel stress - tense, restless, nervous, or anxious, or unable to sleep at night because yourmind is troubled all the time - these days [OSQ]Rather muchSumma Health SystemStart: 37-55-2439Kgrwgqvnr54GztZzrbgg Health SystemStart: 69-87-2302RlhpcmiyeELNVChildren's Hospital at [facility] Clinical Notes 01-03-2024 to 08-12-2025 Note Date & FaohZweaFllmzfrc00-88-5615 History of Present illness Narrative* Norm Patino NP - 08/12/2025 2:20 PM EDT Post Reason for Appointment: Patient ID: Brandie Bruno is a 30 y.o. female who presents for s/p c section Patient presents today for 1 Week Post Op Follow Up appointment. MEDICATIONS Current Outpatient Medications Medication Instructions [...] Date CERVICAL BIOPSY W/ LOOP ELECTRODE EXCISION SECTION, CLASSIC 08/04/2025 OTHER SURGICAL HISTORY Laser Surgery WISDOM TOOTH EXTRACTION 2012 wisdom teeth REVIEW OF SYSTEMS Review of Systems: Review of Systems Constitutional: Negative. HENT: Negative. Eyes: Negative. Respiratory: Negative. Cardiovascular: Negative. Gastrointestinal: Negative. Genitourinary: Negative. Musculoskeletal: Negative. Skin: Negative. Bilateral pedal edema; improving Neurological: Negative. All other systems reviewed and [...] nursing note reviewed. Exam conducted with a interior design professor present. Vitals: Estimated body mass index is 35.1 kg/m as calculated from the following: Height as of 11/30/22: 5' 3 . Weight as of 07/29/25: 198 lb 1.9 oz. BP: No LMP recorded. ASSESSMENT & PLAN ICD-10-CM 1. Postoperative visit Z48.89 2. S/P section Z98.891 Patient presents today for a one week postop section check. Patient is doing well with minor complaints of pain. Incision has been noted as healing well with no signs and symptoms of infection. Follow Up: Patient is to return in 5 weeks for 6 week evaluation. Documented by Zulma Phelps MA on behalf of: Norm Patino NP documented in this encounterRay County Memorial HospitalSyqjgmnhjb93-71-4714 History of Present illness Narrative* Neyda Goldberg LPN - 07/29/2025 11:30 AM EDT Reason for Appointment: Patient ID: Brandie Bruno is a 30 y.o. female who [...] nursing note reviewed. Exam conducted with a interior design professor present. Vitals: Estimated body mass index is 35.1 kg/m as calculated from the following: Height as of 11/30/22: 5' 3 . Weight as of this encounter: 198 lb 1.9 oz. BP: 110/68 Patient's last menstrual period was 11/18/2024. ASSESSMENT & PLAN ICD-10-CM 1. Third trimester ([facility]) Z34.93 CULTURE, GROUP B STREP WITH SUSCEPTIBLITY CULTURE, GROUP B STREP WITH SUSCEPTIBLITY POCT urinalysis dipstick manually resulted 2. 36 weeks gestation of ([facility]) Z3A.36 POCT urinalysis dipstick manually resulted Patient presents today for a routine obstetrics appointment. Patient is currently 36w1d with a Estimated Date of Delivery: 08/25/25. Discussed delivery next Tuesday for LGA. Patietn and spouse agreeable for IOL. Patient to sign IOL consents prior to leaving office today. Patient to arrive at [facility] on Tuesday night on 08/04/25 @6:30pm on Tuesday. GBS was obtained without difficulty and patientsigned IOL consent. Spoke with [facility] at [facility] to add patient to the books for Tuesday. Patient to schedule for 6 week appointment. Documented by Neyda Goldberg LPN on behalf of: Henok Lopez DO documented in this encounterRay County Memorial HospitalSqhaynrirg42-30-3432 History of Present illness Narrative* Norm Patino NP - 07/10/2025 2:10 PM EDT Reason for Appointment: Patient ID: Brandie Bruno is a 30 y.o. female who [...] PLAN ICD-10-CM 1. Third trimester ([facility]) Z34.93 POCT urinalysis dipstick manually resulted 2. 33 weeks gestation of ([facility]) Z3A.33 Return OB: Patient presents today [...] begin NST/ BPP once weekly. Documented by Norm Patino NP on behalf of: Henok Lopez DO documented in this encounterRay County Memorial HospitalXzoxdeaase23-86-0495 History of Present illness Narrative* DAVID Reid - 06/26/2025 1:30 PM EDT Reason for Appointment: Patient ID: Brandie Bruno is a 30 y.o. female who [...] PLAN ICD-10-CM 1. Third trimester ([facility]) Z34.93 POCT urinalysis dipstick manually resulted 2. 31 weeks gestation of ([facility]) Z3A.31 Return OB: Patient presents today [...] behalf of: DAVID Reid documented in this encounterRay County Memorial HospitalWttfuczfrv19-82-8357 History of Present illness Narrative* Audrey WeirBETHEL - 06/11/2025 2:00 PM EDT Reason for Appointment: Patient ID: Brandie Bruno is a 30 y.o. female who [...] nursing note reviewed. Exam conducted with a interior design professor present. Vitals: Estimated body mass index is 34.06 kg/m as calculated from the following: Height as of 11/30/22: 5' 3 . Weight as of this encounter: 192 lb 4 oz. BP: 122/68 Patient's last menstrual period was 11/18/2024. ASSESSMENT & PLAN ICD-10-CM 1. Third trimester ([facility]) Z34.93 POCT urinalysis dipstick manually resulted 2. 29 weeks gestation of ([facility]) Z3A.29 3. Anemia affecting in third trimester ([facility]) O99.013 iron polysaccharides (ProFe) 391.3 (180 Fe) MG capsule 4. Excessive growth affecting management of , antepartum, single or unspecified fetus ([facility]) O36.60X0 Return OB: Patient presents today [...] by Audrey Weir LPN on behalf of: Henok Lopez DO documented in this encounterRay County Memorial HospitalYsglghabeq51-79-3987 History of Present illness Narrative* DAVID Reid - 05/29/2025 1:20 PM EDT Reason for Appointment: Patient ID: Brandie Bruno is a 30 y.o. female who [...] ASSESSMENT & PLAN ICD-10-CM 1. Second trimester ([facility]) Z34.92 POCT urinalysis dipstick manually resulted 2. 27 weeks gestation of ([facility]) Z3A.27 Return OB: Patient presents today [...] behalf of: DAVID Reid documented in this encounterRay County Memorial HospitalJvndxzcvrp68-47-6930 History of Present illness Narrative* DAVID Reid - 05/02/2025 8:50 AM EDT Reason for Appointment: Patient ID: Brandie Bruno is a 30 y.o. female who [...] Glucose tolerance, 1 hour 2. Second trimester ([facility]) Z34.92 POCT urinalysis dipstick manually resulted 3. 23 weeks gestation of ([facility]) Z3A.23 Return OB: Patient presents today [...] Documented by DAVID Reid on behalf of: Henok Lopez DO documented in this encounterRay County Memorial HospitalPsjwpgtucg52-91-2981 History of Present illness Narrative* DAVID Reid - 04/03/2025 9:30 AM EDT Reason for Appointment: Patient ID: Brandie Bruno is a 30 y.o. female who [...] behalf of: DAVID Reid documented in this encounterRay County Memorial HospitalFyktforuda10-13-0849 History of Present illness Narrative* Audrey Weir, BETHEL - 02/26/2025 9:50 AM EDT Reason for Appointment: Patient ID: Brandie Bruno is a 30 y.o. female who [...] nursing note reviewed. Exam conducted with a interior design professor present. Vitals: Estimated body mass index is [...] undercooked meat, and stay away from [facility]. Patient has been consulted regarding any further do's and don'tsof . Patient voiced understanding and all questions and concerns were answered. Orders Placed This Encounter Procedures POCT urinalysis dipstick manually resulted Follow Up: Patient is to return in 4 weeks for routine OB appointment. Documented by Audrey Weir LPN on behalf of: Henok Lopez DO documented in this encounterRay County Memorial HospitalXvqxqwievu45-44-0643 History of Present illness Narrative* Audrey Weir LPN - 12/11/2024 1:20 PM EST Reason for Appointment: Patient ID: Brandie Bruno is a 29 y.o. female who [...] nursing note reviewed. Exam conducted with a interior design professor present. Vitals: Estimated body mass index is [...] by Audrey Weir LPN on behalf of: Henok Lopez DO documented in this encounterRay County Memorial HospitalGwibvlvpgj02-02-3563 Evaluation note* Author Danny [facility] 20[facility] 3:87uf91-xzxr-qch female referred to the GI clinic for evaluation of upper abdominal pain. +upper abdominal pain that has resolved few months ago. She states that she still gets intermittent abdominal discomfort but less severe than how it was Will check CBC, LFTs and Lipase Will arrange US of the upper abdomen [facility] Work Phone: 1(809) 136-634604-29-2024 History of Present illness Narrative* Matt Sandra, KIM-YVES - 03/12/2024 11:20 AM EDT Images from the original note were not included. [address] [facility] [address] SUBJECTIVE: Patient ID: Brandie Bruno is a 29 y.o. female. Chief [...] 10/12/2017 Performed by Sarabjit Odom MD at [facility] TONSILLECTOMY WISDOM TOOTH EXTRACTION Past Medical [...] Thought content normal. Judgment: Judgment normal. ASSESSMENT/PLAN: Brandie was seen today for follow-up. Diagnoses and [...] JAY Knight 03/12/24 1305 documented [facility] [place] Miscellaneous Notes* Telephone Encounter - Mikala Murphy CMA - 02/09/2024 9:06 AM EDT Pt called and was in to see you yesterday 02/07 and is stuffed up today and coughing up yellow. Could you send in something to her local pharmacy? * Telephone Encounter - JAY Knight - 02/09/2024 9:06 AM EDT Christiano sent to drug [facility] pharmacy. 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 * Telephone Encounter - Mikala Murphy CMA - 02/09/2024 9:06 AM EDT I called and read your note. Pt will get scheduled after this illness documented in this encounterSelect [facility] [place]24 Telephone encounter Note* Telephone Encounter - Mikala Murphy CMA - 02/09/2024 9:06 AM EDT Pt called and was in to see you yesterday 02/07 and is stuffed up today and coughing up yellow. Could you send in something to her local pharmacy? [facility]03-28-2024 Telephone encounter Note* Telephone Encounter - JAY Knight - 02/09/2024 9:06 AM EDT [facility] 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 [facility]03-28-2024 Telephone encounter Note* Telephone Encounter - Mikala Murphy CMA - 02/09/2024 9:06 AM EDT I called and read your note. Pt will get scheduled after this illness [facility]03-27-2024 History of Present illness Narrative* JAY Little - 02/08/2024 11:40 AM EDT [address] [facility] [address] Patient: Brandie Bruno Date of : 1995 Encounter Date: [...] 10/12/2017 Performed by Sarabjit Odom MD at [facility] TONSILLECTOMY WISDOM TOOTH EXTRACTION Current Outpatient [...] normal. Behavior: Behavior normal. Assessment and Plan: Brandie was seen today for cough. Diagnoses and [...] LITTLE APRN-CNP 02/08/24 1255 documented in this encounterSelect [facility] [place]-2024 History of Present illness Narrative* JAY Knight - 01/03/2024 10:15 AM EST Images from the original note were not included. [address] [facility] [address] SUBJECTIVE: Patient ID: Brandie Bruno is a 28 y.o. female. Chief Complaint Patient presents with Anxiety Brandie presents today wishing to restart medication for her moods. She does feel she ideally depressed. Her concern is anxiety, irritability, and feels short tempered. Is managing deal of personal stressors. Custody issues with her children's father who lives out of state. Has graduated from [employer]. 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 Depression [...] 10/12/2017 Performed by Sarabjit Odom MD at [facility] TONSILLECTOMY WISDOM TOOTH EXTRACTION Past Medical [...] Thought content normal. Judgment: Judgment normal. ASSESSMENT/PLAN: Brandie was seen today for anxiety. Diagnoses and [...] JAY Knight 01/03/24 1047 documented in this encounterSumma Health SystemEvaluation note* Diagnosis Well woman exam with routine gynecological exam Routine gynecological examination documented in this encounter [facility] HealthcareEvaluation note* Diagnosis Anxiety and depression- Primary documented in this encounter [facility] SystemEvaluation note* Diagnosis Acute bacterial sinusitis- Primary Acute sinusitis, unspecified documented in this encounter [facility] SystemEvaluation note* Diagnosis Viral upper respiratory tract infection- Primary Acute upper respiratory infections of unspecified site Chills Chills (without fever) Epigastric pain Abdominal pain, epigastric Syncope and collapse Gastroesophageal reflux disease, unspecified whether esophagitis present documented in this encounter [facility] SystemEvaluation note* Diagnosis Anxiety and depression- Primary Nausea Nausea alone Syncope, unspecified syncope type documented in this encounter [facility] SystemEvaluation note* Diagnosis Second trimester state, incidental 12 weeks gestation of documented in this encounter [facility] HealthcareEvaluation note* Diagnosis Second trimester state, incidental 18 weeks gestation of Screening, , for anatomic survey Encounter for anatomic survey Screening examination for STI Need for maternal serum alpha-protein (MSAFP) screening documented in this encounter [facility] HealthcareEvaluation note* Diagnosis Diabetes mellitus screening Screening [...] in this encounter [facility] HealthcareEvaluation note* Diagnosis Postoperative visit S/P section Other postprocedural status documented in this encounter [facility] HealthcareInstructions* Attachments The following attachments cannot be sent through Care Everywhere. * Depression ([place]) documented in this encounterProTrinity Health System [facility] SystemInstructionsNot on file documented in this encounterSumma Health SystemInstructions* Attachments The following attachments cannot be sent through Care Everywhere. * Acid Reflux and GERD in Adults Discharge Instructions ([place]) documented in this encounterSumma Health SystemInstructions* Attachments The following attachments cannot be sent through Care Everywhere. * Nausea and Vomiting, Adult ([place]) documented in this encounterSumma Health System Summary Purpose Family History No Family History Records Found Relationship Condition Age at Onset Recorded Date/T shahid maternal grandmother Malignant neoplasm Unknown paternal grandmotherMalignant neoplasmUnknownmaternal grandfatherDiabetes mellitusUnknown Advance Directives No Advanced Directives Records Found Advance Directive Response Recorded Date/ Time Advance Directives No April 10 1:45pm Chief Complaint and Reason for Visit Chief Complaint Refer by Matt sofia, epigastric & RUQ pain Additional Source Comments INFORMATION SOURCE (unrecogn ized section and content) DATE CREATED AUTHOR 05/10/2018 [facility] DATE CREATED AUTHOR AUTHOR'S ORGANIZ ATION 12/02/2022 [facility] DATE CREATED AUTHOR AUTHOR'S ORGANIZ ATION 02/28/2024 [facility] DATE CREATED AUTHOR AUTHOR'S ORGANIZ ATION 03/13/[address] [facility] DATE CREATED AUTHOR AUTHOR'S ORGANIZ ATION 08/18/2025 [facility] EPIC Care Teams (unrecognized sec tion and content) Team Status: Active Member Role Status Dates NON STAFF Primary Care Provider Active Team Status: Active Member Role Status Dates Gricelda Prince DO Attending Provider Active St art: April 10, 2024 Team Status: Inactive Member Role Status Dates Danny Alonzo MD Attending Provider Active Start: July 03, 2024 End: July 03, 2024NON STAFFPrimary Care ProviderActiveStart: July 03, 2024 End: July 03, 2024Team MemberRelationshipSpecialtyStart DateEnd Date Radha Calix PA [address] [place] [address] PCP - [facility]05/14/24Team MemberRelationshipSpecialtyStart DateEnd Date Radha Calix PA [address] [place] [address] PCP - [facility]05/14/24Team MemberRelationshipSpecialtyStart DateEnd Date Matt Sandra, HEALTH EDUCATION DIRECTOR-MANAGER OF INVESTIGATIONS [address] [place] [address] PCP - GeneralFamily Syetbfre55/3/19Team MemberRelationshipSpecialtyStart DateEnd Date Matt Sandra, HEALTH EDUCATION DIRECTOR-[facility] [address] [place] [address] PCP - GeneralFamily Abdjvznb39/3/19Team MemberRelationshipSpecialtyStart DateEnd Date Matt Sandra, HEALTH EDUCATION DIRECTOR-MANAGER OF INVESTIGATIONS [address] [place] [address] PCP - GeneralFamily Oibqlfrs71/3/19Team MemberRelationshipSpecialtyStart DateEnd Date Radha Calix PA NPI: PCP - [facility]7Team MemberRelationshipSpecialtyStart DateEnd Date Radha Calix PA NPI: PCP - [facility]7Team MemberRelationshipSpecialtyStart DateEnd Date Radha Calix PA NPI: PCP - [facility]7Team MemberRelationshipSpecialtyStart DateEnd Date Radha Calix PA NPI: PCP - [facility]05/14/24Team MemberRelationshipSpecialtyStart DateEnd Date Radha aClix PA NPI: PCP - [facility]05/14/24Team MemberRelationshipSpecialtyStart DateEnd Date Radha Calix PA NPI: PCP - [facility]7Team MemberRelationshipSpecialtyStart DateEnd Date Radha Calix PA NPI: PCP - [facility]7Team MemberRelationshipSpecialtyStart DateEnd Date Radha Calix PA NPI: PCP - [facility]7Team MemberRelationshipSpecialtyStart DateEnd Date Radha Calix PA PCP - [facility] MemberRelationshipSpecialtyStart DateEnd Date Radha Calix PA NPI: PCP - [facility]7Team MemberRelationshipSpecialtyStart DateEnd Date Radha Calix PA NPI: PCP - [facility] Goals (unrecognized section and content) Goals may be documented in a n alternate sectionNot on filedocumented as of this encounterNot on filedocumented as of this encounterNot on filedocumented as of this encounterNot on filedocumented as of this encounter Reason for Visit (unrecogniz ed section and content) ReasonCommentsGynecologic ExamReasonCommentsAnxietyReasonCommentsCoughCough,body aches, headacheReasonCommentsFollow-upNausea in the morning times 3 daysReason CommentsRoutine VisitReasonCommentss/p c section FOR RECORDS PERTAINING TO PATIENTS WHO [...] BE BASED ON THE PRIMARY CLINICAL RECORDS. [employer] [facility]. provides no warranty or guarantee of the accuracy or completeness of information in this document.
--- OUTSIDE RECORDS SUMMARY | 2025-09-06 16:57 | XMS_ITS ---
Author Organization [facility] Source Produ ction (ClinicalSummary Clone) Address Unknown Care Team Providers Care Nail Polish Brush Machine Feeder Name Role Phone Unavailable Primary Care Physician Unavailab le Results * [UNITY] ANEUPLOIDY NIPT Performed by: StackSearch Component Value Range Date Fraction 7.7% 02/02/2025 01:49 am UTCRh(D) NIPTRhD NCZZTABB69/22/2025 01:49 am UTCSex Chromosome AneuploidyNOT CPADAOEJ75/22/2025 01:49 am UTCMonosomy XLOW RISK <1 in , 01:49 am UTCTrisomy 13LOW RISK <1 in , 01:49 am UTCTrisomy 18LOW RISK <1 in , 01:49 am UTCTrisomy 21LOW RISK <1 in , 01:49 am UTCFetal LblMLYF1402/02/2025 01:49 am UTCPregnancy XczlqtpgqUDYZLKOER10/22/2025 01:49 am UTCFor detailed report, see PDFSee PDF 02/02/2025 01:49 am UTC02/02/2025 01:49 am UTC Social History Observation Value Start Date End Date
--- OUTSIDE RECORDS SUMMARY | 2025-09-06 16:57 | XMS_ITS | Clinical Summary ---
Author Organization [facility] Address [address] [facility] [place] [address] Care Team Providers Care Director Environmental Name Role Phone Radha Calix Unavailable Allergies Active AllergyReactionsCriticalityNoted DateCommentsCephalexinAnaphylaxis,Rash High07/29/2017 Throat swelled up and itching Medications MedicationSigDispense QuantityRefillsLast FilledStart DateEnd DateStatus FLUoxetine (PROzac) 10 MG capsule Take 10 mg by mouth at bedtime.11/23/2022ctive propylene glycol liquid external solution 07/12/2023ctive Ciclopirox 1 % shampoo wash affected area on the trunk in the shower DAILY until clear, let sit 3-5 MINUTES then rinse off01/22/2025tive esomeprazole (NexIUM) [address] capsule Take 40 mg by mouth Daily03/25/2024ctive ondansetron ODT (Zofran-ODT) 4 MG disintegrating tablet Take 4 mg by mouth every 8 (eight) hours if yohrna4003/12/2024ctive triamcinolone (Kenalog) 0.1 % cream APPLY a thin layer to trunk and extremities TWICE DAILY HZNDNG9801/22/2025 Active Active Problems No known active problems Encounters DateTypeDepartmentCare LlguAqorevecolz66/29/2025 2:20 [place] [address] Jo Ann Patino NP Postoperative visit; S/P ogrpoij7908/12/2025[place] [phone] Jo Ann Patino, ROLL EDGE MACHINE OPERATOR 08/07/2025linisync Result Encounter [facility] External Department Unsolicited Henok Lopez, DO 5Clinisync Result Encounter [facility] External Department Unsolicited Henok Lopez, DO 08/05/2025bstract [facility] [address] [phone] Henok Lopez, DO 5Clinisync Result Encounter [facility] External Department Unsolicited Henok Lopez, DO 08/04/2025bstract [facility] [place] [facility] [address] [address] Henok Lopez, DO 08/04/2025linisync Result Encounter [facility] External Department Unsolicited Henok Lopez, DO 07/31/2025linisync Result Encounter [facility] External Department Unsolicited Jo Ann Patino, ROLL EDGE MACHINE OPERATOR 07/29/2025 11:30 AM EDTRoutine [facility] [address] [phone] Henok Lopez, DO Third trimester ([facility]); 36 weeks gestation of ([facility])07/29/2025 11:00 AM EDTAncillary Procedure [facility] [place] [facility] [address] [phone] Excessive growth affecting management of in third trimester, single or unspecified fetus ([facility])07/25/2025bstract [facility] [address] [phone] Henok Lopez, DO 07/25/2025bstract [facility] [place] [facility] [address] [phone] Henok Lopez, DO 5Clinisync Result Encounter [facility] External Department Unsolicited Jo Ann Patino NP 5Clinisync Result Encounter [facility]OM[facility] External Department Unsolicited Jo Ann Patino NP 07/10/2025 2:10 PM EDTRoutine [facility] [address] Henok Lopez DO Excessive growth affecting management of in third trimester, single or unspecified fetus ([facility]) (Primary Dx); Third trimester ([facility]); 33 weeks gestation of ([facility]); Hematuria, unspecified type07/10/2025 1:30 PM EDTAncillary [place] [address] Excessive growth affecting management of , antepartum, single or unspecified fetus ([facility])06/26/2025 1:30 PM EDTRoutine [facility] [place] [address] Josi Cardoza PA Third trimester ([facility]); 31 weeks gestation of ([facility])5Bamboo flowsheet [facility]NAN[facility] [address] [place] [address] [place] [address] Josi Cardoza PA 06/11/2025 2:00 PM EDTRoutine [facility] [place] [address] Henok Lopez DO Third trimester ([facility]); 29 weeks gestation of ([facility]); Anemia affecting in third trimester ([facility]); Excessive growth affecting management of , antepartum, single or unspecified fetus ([facility])06/11/2025 1:30 PM EDTAncillary Procedure [facility] [place] [address] Size of fetus inconsistent with dates in second trimester ([facility])from Last 3 Months Family History Medical HistoryRelationNameCommentsDiabetesMaternal GrandfatherCancerMaternal GrandmotherRelationNameStatusCommentsDaughterAliveMaternal GrandfatherMaternal GrandmotherSonAlive Social History Tobacco UseTypesPacks/DayYears UsedDateSmoking Tobacco: NeverSmokeless Tobacco: Never Tobacco Cessation:Counseling Given: Not Answered Alcohol UseStandard Drinks/WeekCommentsNever0 (1 standard drink = 0.6 oz pure alcohol)CommentsNoSex and Gender InformationValueDate RecordedSex Assigned at BirthNot on fileLegal FvxXblrrh30/15/2023 11:47 PM EDTGender IdentityNot on fileSexual OrientationNot on file Last Filed Vital Signs Vital SignReadingTime TakenCommentsBlood Hjolvsxm474/72008/12/2025 2:33 PM EDT Pulse--Temperature--Respiratory Rate--Oxygen Saturation--Inhaled Oxygen Concentration--Dxopmv40.8 kg (187 lb)08/12/2025 2:33 PM VGSWomkbn765 cm (5' 3 ) 08/12/2025 2:33 PM EDTBody Mass Index33.1309 2:33 PM EDT Plan of Treatment DateTypeDepartmentCare Team (Latest Contact Info)Iffpeyddwux73/05/2025 10:30 AM ESTPostpartum Visit MANDEEP HERNANDEZ [address] [place] [address] [place] [address] Jo Ann Patino, ROLL EDGE MACHINE OPERATOR [address] [place] [address] 12/16/2025 2:00 PM ESTOffice Visit MANDEEP HERNANDEZ [address] [place] [address] [place] [address] Henok Lopez DO [address] [place] [address] Health MaintenanceDue DateLast DoneCommentsInfluenza Vaccine (#1)07/15/2025 Procedures Procedure NamePriorityDate/TimeAssociated DiagnosisCommentsALL CBC WITH AUTO ZXEPMnfwwzc39/24/2025 6:40 AM EDT ALL CBC WITH AUTO GQROKeecesm09/23/2025 6:16 AM EDT ALL CBC WITH AUTO ACILRxzzaes18/22/2025 7:42 PM EDT HMHP CBC WITH PLATELET NO WOZMZTVATEATIqqoauf27/21/2025 7:10 PM EDT TBH DRUG SCREEN RAPID (URINE)Tyicffm6508/04/2025 6:35 PM EDT US OB BPP W NON-DQTPEG5607/31/2025 11:26 AM EDT POCT URINALYSIS RYVZJHUYJfkoxnr88/15/2025 11:44 AM EDT Third trimester ([facility]) 36 weeks gestation of ([facility]) US OB FOLLOW UP TRANSABDOMINAL NJODRRYXDcxjfgg82/15/2025 11:19 AM EDT Excessive growth affecting management of in third trimester, single or unspecified fetus ([facility]) US OB BPP W NON-NSSOVD0907/24/2025 11:09 AM EDT US OB BPP W NON-QZUBJS2707/17/2025 3:34 PM EDT POCT URINALYSIS NMILWQCNRlgaiml99/27/2025 2:19 PM EDT Third trimester ([facility]) US OB FOLLOW UP TRANSABDOMINAL BUFVZZRYKxnmtmn03/27/2025 1:48 PM EDT Excessive growth affecting management of , antepartum, single or unspecified fetus ([facility]) POCT URINALYSIS YLTKUGHSHcptfod63/13/2025 1:39 PM EDT Third trimester ([facility]) POCT URINALYSIS MRSIMYYAAvoevhb72/29/2025 2:52 PM EDT Third trimester ([facility]) US OB FOLLOW UP TRANSABDOMINAL WBSKLGGKMiilbmc31/29/2025 2:03 PM EDT Size of fetus inconsistent with dates in second trimester ([facility]) from Last 3 Months Results * (ABNORMAL) ALL CBC WITH AUTO DIFF (08/07/2025 6:40 AM EDT) Only the most recent of3 resultswithin the time period is included. ComponentValueRef RangeTest MethodAnalysis TimePerformed AtPathologist Signature TBH WBC15.6(H)4.0 - 11.0 10 3/uLTBHTBH RBC2.58(L)4.20 - 5.40 10 6/uLTBHTBH HGB 6.7(LL)12.0 - 16.0 g/dLTBHComment:RESULTS CALLED TO MARYAM PRECIADO,RNTB HCT21.6 (LL)36.0 - 48.0 %TBHComment:RESULTS CALLED TO MARYAM PRECIADO,RNTB MCV83.781.0 - 99.0 fLTBHTBH MCH26.0(L)26.7 - 34.0 pgTBHTBH MCHC31.029.9 - 35.2 g/dLTBHTBH RDW 15.2(H)11.0 - 15.0 %TBHTBH TYQ936489 - 450 10 3/uLTBHTBH MPV9.4(L)9.5 - 13.5 fL TBHNEUTROPHILS PERCENT AUTO78.0(H)43.0 - 75.0 %TBHLYMPHOCYTES PERCENT AUTO13.5 (L)20.5 - 60.0 %TBHMONOCYTES PERCENT AUTO6.41.7 - 12.0 %TBHTBH EO %0.4(L)0.9 - 7.0 %TBHBASOPHILS PERCENT AUTO0.20.2 - 2.0 %TBHIMMATURE GRANULOCYTES PCT AUTO1.5 (H)0.0 - 0.5 %TBHNEUTROPHILS ABSOLUTE AUTO12.1(H)1.4 - 6.5 10 3/uLTBHLYMPHOCYTES ABSOLUTE AUTO2.11.2 - 3.8 10 3/uLTBHMONOCYTES ABSOLUTE AUTO1.0(H)0.3 - 0.8 10 3/uLTBHTBH EO #0.10.0 - 0.7 10 3/uLTBHBASOPHILS ABSOLUTE AUTO0.00.0 - 0.1 10 3/uLTBHIMMATURE GRANULOCYTES ABS AUTO0.23(H)0.00 - 0.03 10 3/uLTBHSpecimen (Source)Anatomical Location / LateralityCollection Method / VolumeCollection TimeReceived Time08/07/2025 6:40 AM EDT08/07/2025 6:59 AM EDT Narrative CLINISYNC - 08/07/2025 7:16 AM EDT Authorizing ProviderResult TypeResult StatusCorey John DOCLINISYNCFinal Result Performing OrganizationAddressCity/State/ZIP CodePhone Number * (ABNORMAL) [facility] CBC WITH PLATELET NO DIFFERENTIAL (08/04/2025 7:10 PM EDT) ComponentValueRef RangeTest MethodAnalysis TimePerformed AtPathologist SignatureTBH WBC10.04.0 - 11.0 10 3/uLTBHTBH RBC3.48(L)4.20 - 5.40 10 6/uLTBH TBH HGB9.2(L)12.0 - 16.0 g/dLTBHTBH HCT28.4(L)36.0 - 48.0 %TBHTBH MCV81.681.0 - 99.0 fLTBHTBH MCH26.4(L)26.7 - 34.0 pgTBHTBH MCHC32.429.9 - 35.2 g/dLTBHTBH RDW14.811.0 - 15.0 %TBHTBH EAD263954 - 450 10 3/uLTBHTBH MPV8.8(L)9.5 - 13.5 fLTBHSpecimen (Source)Anatomical Location / LateralityCollection Method / VolumeCollection TimeReceived Time08/04/2025 7:10 PM EDT08/04/2025 7:13 PM EDT Narrative CLINISYNC - 08/04/2025 7:23 PM EDT Authorizing ProviderResult TypeResult StatusCorey John DOCLINISYNCFinal Result Performing OrganizationAddressCity/State/ZIP CodePhone Number [facility] * [facility] DRUG SCREEN RAPID (URINE) (08/04/2025 6:35 PM EDT)ComponentValueRef Range Test MethodAnalysis TimePerformed AtPathologist SignatureCANNABINOID SCREEN URINENEGATIVENEGATIVETBHPHENCYCLIDINE SCREEN URINENEGATIVENEGATIVETBHCOCAINE SCREEN URINENEGATIVENEGATIVETBHMETHAMPHETAMINES SCREEN URINENEGATIVENEGATIVE TBHOPIATE SCREEN URINENEGATIVENEGATIVETBHAMPHETAMINE SCREEN URINENEGATIVE NEGATIVETBHBENZODIAZEPINES SCREEN URINENEGATIVENEGATIVETBHTRICYCLIC ANTIDEPRESSANT URINENEGATIVENEGATIVETBHMETHADONE SCREEN URINENEGATIVENEGATIVE TBHBARBITURATES SCREEN URINENEGATIVENEGATIVETBHOXYCODONE SCREEN URINENEGATIVE NEGATIVETBHBUPRENORPHINE SCREEN URINENEGATIVENEGATIVETBHComment: DRUG CLASS TEST SYSTEM CUT-OFF CONCENTRATIONS ARE FOLLOWS: AMP (Amphetamine): 500 ng/mL BAR (Barbiturates): 200 ng/mL BZO (Benzodiazepines): 150 ng/mL BUP (Buprenorphine): 10 ng/mL MEGHAN (Cocaine): 150 ng/mL mAMP (Methamphetamine): 500 ng/mL MTD (Methadone): 200 ng/mL OPI (Opiates): 100 ng/mL OXY (Oxycodone): 100 ng/mL PCP (Phencyclidine): 25 ng/mL THC (Cannabinoids): 50 ng/mL TCA (Trycyclic Antidepressants): 300 ng/mL Specimen (Source)Anatomical Location / LateralityCollection Method / Volume Collection TimeReceived Time08/04/2025 6:35 PM EDT08/04/2025 8:20 PM EDT Narrative CLINISYNC - 08/04/2025 8:32 PM EDT Authorizing ProviderResult TypeResult StatusCorey John DOCLINISYNCFinal Result Performing OrganizationAddressCity/State/ZIP CodePhone Number [facility] * OB BPP W NON-STRESS (07/31/2025 11:26 AM EDT) Only the most recent of3 resultswithin the time period is included. Anatomical RegionLateralityModalityOtherSpecimen (Source)Anatomical Location / LateralityCollection Method / VolumeCollection TimeReceived Time07/31/2025 11:26 AM EDT Narrative 07/31/2025 11:29 AM EDT [facility] ?[address] ? [place] [address] ? Ultrasound Report ? Signed ? Patient: KIANA,TARA A ?MR#: [id number] ?? : 1995 ?Acct:[id number] ?? Age/Sex: 30 / F ?ADM Date: 07/31/25 ?? Loc: [facility] ??250-1 ? Attending Dr: Jo Ann Patino ? Ordering Physician: Jo Ann Patino ?? Date of Service: 07/31/25 ?? Procedure(s): US OB BPP w non-stress ?? Accession Number(s): [id number] ? cc: MATT BRODERICK ; Jo Ann Patino ? [facility] ? [address] ? [place] [address] ? Patient Name: ?? TARA ISLAS ? MRN: [facility] [facility] [facility] [employer]:[id number] ? date: 1995 ?Sex: F ?? Assigned Patient Location: [facility] ?? Current Patient Location: [facility] ?? Accession/Order Number: [id number] ?? Exam Date: 07/31/2025 ??10:05 ?Report Date: 07/31/2025 ??11:26 ? At the request of: ?? JO ANN ??SIS ? Procedure: ??US OB BPP w non-stress ? BIOPHYSICAL PROFILE: ? CLINICAL INFORMATION: Excessive growth ? Comparison: 07/23/2025 ? There is a single live intrauterine gestation in cephalic presentation. ??The ?? reported gestational age is 36 weeks 3 days. ??The heart rate measures ?? 161 beats per minute. ? FINDINGS: ? TONE: 1 or more episodes of activity extension and flexion of ?? extremity or opening and closing of the hand ?[Y] ? 2/2 ?? GROSS BODY MOVEMENTS: 3 or more discrete body or limb movements ?[Y] ? 2/2 ?? BREATHING MOVEMENTS: 1 or more episodes of breathing lasting at ?? least 30 seconds ? [Y] ? 2/2 ?? BENNETT: A single deepest vertical pocket of amniotic fluid greater than 2 cm ? [Y] ? 2/2 ?BENNETT: 17.2 cm. ??This is in upper normal range. ? Total score: ? 8/8 ? US/US OB BPP w non-stress ?? IMPRESSION: ? NORMAL BIOPHYSICAL PROFILE ? Impression dictated by: Audrey Kuo M.D. ??07/31/2025 11:26 AM ? Dictation Location: RADIO-PC-30 ? Electronically authenticated by: [id number] ??Y ?? Date: 07/31/2025 ??11:26 ? Dictated By: ?Audrey Kuo M.D. ? Signed By: ?07/31/25 1129 ? DD/ 1126 ? TD/TT: ? Manager Mechanical Maintenance: Procedure Note Radiology, Radiologist, - 07/31/2025 [place] [address] Ultrasound Report Signed Patient: TARA ISLAS [facility]#: [id number] : 1995Acct:[id number] Age/Sex: 30 / FADM Date: 07/31/25 Loc: [facility] 250-[address]: Jo Ann Patino Ordering Physician: Jo Ann Patino Date of Service: 07/31/25 Procedure(s): US OB BPP w non-stress Accession Number(s): [id number] cc: MATT BRODERICK ; Jo Ann Patino The [place] [address] Patient Name: TARA ISLAS MRN: [id number] date: 1995 Sex: F Assigned Patient Location: [facility] Current Patient Location: [facility] Accession/Order Number: [id number] Exam Date: 07/31/2025 10:05 Report Date: 07/31/2025 [...] Kuo M.D. 07/31/2025 11:26 AM Dictation Location: [place] [address] Electronically authenticated by: [id number] Y Date: 1:26 Dictated By: Audrey Kuo M.D. Signed By:07/31/25 1129 DD/ 1126 TD/TT: Manager Mechanical Maintenance: Authorizing ProviderResult TypeResult StatusJo Ann Patino NPCLINISYNC IMAGING Final Result * POCT urinalysis dipstick manually resulted (07/29/2025 11:44 AM EDT) Only the most recent of4 resultswithin the time period is included. ComponentValueRef RangeTest MethodAnalysis TimePerformed AtPathologist Signature Color, UAYellowClarity, UAClearGlucose, UANegativeNegative - 2000(110) ++++ mg/dLBilirubin, UANegativeNegative - 4(70) +++ mg/dLKetones, UANegativeNegative - 160(16) ++++ mg/dLSpec Grav, UA6.5001 - 1.03Blood, UAPositiveNegative - 50 Abhi/mcLpH, UA1.05 - 9Protein, UANegativeNegative - 2000(20) ++++ mg/dL Urobilinogen, UA1.00.2 - 12 mg/dLLeukocytes, UANegativeNegative - 500+++ Pura/mcL Nitrite, UAPositiveNegative - PositiveSpecimen (Source)Anatomical Location / LateralityCollection Method / VolumeCollection TimeReceived LfszYjpeq11/15/2025 11:44 AM EDT Narrative Authorizing ProviderResult TypeResult StatusCoreheber John DOPOINT OF CARE TEST ENTER/EDIT ORDERABLESFinal Result * US OB follow up transabdominal approach (07/29/2025 11:19 AM EDT) Only the most recent of3 resultswithin the time period is included. Anatomical RegionLateralityModalityBodyUltrasoundSpecimen (Source)Anatomical Location / LateralityCollection Method / VolumeCollection TimeReceived Time 07/30/2025 12:39 PM EDT Impressions 07/30/2025 12:57 PM EDT 1. Single, live intrauterine , current sonographic age of 39 weeks and 6 days, with an estimated date of delivery of July 30, 2025. 2. ??Large for gestational age, unchanged from prior examination. 3. ??Comparison made with prior examination of July 10, 2025 at that time BENNETT 19.0 cm. * ??Estimated Weight (g) by Percentile is based upon an accurate estimated age based onlast menstrual period. ?? TRANSCRIBED BY: ? ELECTRONICALLY SIGNED BY: Aaron Calzada MD Narrative 07/30/2025 12:57 PM EDT FINDINGS: A single, live intrauterine is present with normal cardiac rate of 164 ??beats per minute. Normal activity and amniotic fluid volume. Amniotic fluid index is 20.0 cm. ??Morphology is grossly normal. The cervix obscured from positioning. The current sonographic age is 39 weeks and 6 days, based on the following measurements: BPD ? 9.9 cm (40 ??weeks, 3 days) Head Circumference ?35.4cm (41 weeks, 3 days) Abdominal Circumference ?35.6cm (39 ??weeks,4 ??days) Femur Length ?7.5cm (38 weeks, 1 days) Presentation ? Cephalic ? Weight (g) by Percentile ??Greater 97.0 % * These measurements result in an estimated date of delivery of ?? July 30, 2025. ??The current estimated weight is 3837 ?? grams ( 8 ??pound, 7 ??ounces). ?? Procedure Note Aaron Calzada MD - 07/30/2025 [...] BY: ELECTRONICALLY SIGNED BY: Aaron Calzada MD Authorizing ProviderResult TypeResult StatusJo Ann Patino NPIMG OB US PROCEDURESFinal Result from Last 3 Months Insurance Care Teams Team MemberRelationshipSpecialtyStart DateEnd Date Radha Calix PA PCP - [facility]05/14/24
== END 2025-09-06 17:03 | disposition home or self-care (01) ==
LOC: FBCO 16:54
PROVIDERS: PCP Nurse Practitioner; Visit Provider Obstetrics & Gynecology
DX: Z39.1 Encounter for care and examination of lactating mother (principal)

== ENCOUNTER 2025-09-10 10:06 | Outpatient (OUT) | payer MEDICAID, SELFPAY ==
--- OUTSIDE RECORDS SUMMARY | 2025-09-10 10:14 | XMS_ITS | Clinical Summary ---
Author Organization [employer] Address [id number] [address] [place] [address] Care Team Providers Care Care Management Assistant Name Role Phone Lukasz Diego APRN-FIRST HELPER Primary Care Provider + Allergies Active AllergyReactionsCriticalityNoted [...] colpo at 34 weeks Immunizations ImmunizationAdministration DatesNext MxrTFbR6607/30/2002,06/14/1997,1996, 1996,1996Hepatitis B1,1996,1996HiB06/14/1997, 1996,1996,1996IPV07/30/2002,1996,1996,1996 MMR07/30/2002,06/14/1997 Family History Medical [...] relatives?Twice a week10/15/2021How often do you attend voodoo or mosque services?Never1Do you belong to any clubs or organizations such as voodoo groups, unions, fraternal or athletic groups, or school groups?No 10/15/2021How often do you attend meetings of the clubs or organizations you belong to?Never10/15/2021re you , , , , never , or living with a partner?Never vesfgfe3910/15/2021UDIT-CAnswerDate RecordedQ1: How often do you have a drink containing alcohol?Monthly or less 10/15/2021Q2: How many drinks containing alcohol do you have on a typical day when you are drinking?1 or Q3: How often do you have six or more drinks on one occasion?Less than jebbawj1910/15/2021Overall Financial Resource Strain (CARDIA)AnswerDate RecordedHow hard is it for you to pay for the very basics like food, housing, medical care, and heating?Somewhat hard02/09/2023 PHQ-2AnswerDate RecordedTotal Hoayj002[facility]hriners [facility] [place] of Occupational Health - Occupational Stress QuestionnaireAnswerDate [...] part of a household?No02/09/2023hildcareAnswerDate RecordedDo problems getting child care specialist make it difficult for you to work [...] InformationValueDate RecordedSex Assigned at BirthNot on fileLegal FomPmlbrv23/04/2015 6:14 PM EDTGender IdentityNot on file Sexual OrientationNot on fileOccupationIndustryJob Start 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 coNot on fileNot on fileNot on file Last Filed Vital Signs Vital SignReadingTime TakenCommentsBlood Xcfhbdrd513/6804/ 11:21 AM EDT Uprrk636503/12/2024 11:21 AM PNUAzvvciontiz53.7 ??C (98.1 ??F)03/12/2024 11:21 AM EDTRespiratory Wqxn345103/12/2024 11:21 AM EDTOxygen Lssiydfgwd761%03/12/2024 11:21 AM EDTInhaled Oxygen Concentration--Xgtowj61.8 kg (156 lb 1.6 oz) 03/12/2024 11:21 AM KYHNhvzso753.5 cm (5' 2 )03/12/2024 11:21 AM EDTBody Mass Index28.55003/12/2024 11:21 AM EDT Plan of Treatment Health MaintenanceDue DateLast DoneCommentsDTaP,Tdap and Td Vaccines (6 - Tdap) , 06/14/1997, 1996, Additional history existsPap Smear , 07/28/2017Adult BMI Vfanhaymt82/29/628408/ Depression Gjvyfouir82/29//Tobacco Tihdnkvut29/29/ Influenza VaccineDiscontinued Medical Devices Not on file [...] Laboratory Medicine ? [address] ? [place] [address] ? Gynecologic Cytology Consultation ? Patient Name: TARA ISLAS : 1995 (Age: 23) Gender: F Taken: 08/09/2018 Reported: 08/21/2018 Physician(s): Sarabjit Odom M.D. Copy To: ?? [facility] Rec. #: [id number] Acct: # [id number] Final Cytologic Interpretation Cervical (with or without endocervical) ThinPrep: Satisfactory for evaluation. A transformation zone component is present. NEGATIVE FOR INTRAEPITHELIAL LESION OR MALIGNANCY. ?? lvt/08/21/2018 Interpretation performed at [email or web address], [address] [place] [address], License number: [id number]. Electronically Signed Out By ?HARJEET Cruz(ASCP) Date of Last Menstrual Period: ? 06/14/18 Other Clinical Conditions: z12.4 Screenings for malignant neoplasm of cervix z87.898 Hx of abnormal cervical pap smear Previous abnormal pap Hormone replacement therapy Previous treatment: Colposcopy and LEEP Previous cytology: HSIL, YVETTE II - III Source of Specimen ??Cervical (with or without endocervical) ThinPrep ? Thin Prep Pap (INGOT BUGGY OPERATOR) Fee Code(s): ?? G0145 The Pap test is a screening test with an inherent, but low, probability of error. The Pap test is primarily effective for the diagnosis and prevention of squamous cell carcinoma. Regular screening iscritical for prevention. ThinPrep liquid-based slides, which meet the Machine Heel Seat Fitter criteria for automated screening, have been screened by the ThinPrep Imaging System (as of 07/31/07) along with an additional manual rescreening by a integration assistant and, if indicated, by a pathologist.Sarabjit Odom M.D. 08/14/2018 Authorizing ProviderResult TypeResult StatusStmirela Odom MDPATHOLOGY/CYTOLOGY ORDERABLESFinal ResultPerforming OrganizationAddressCity/State/ZIP CodePhone Number COPATH from Last 3 Months or Most Recently Relevant to Health Maintenance Insurance Care Teams Team MemberRelationshipSpecialtyStart DateEnd Date Lukasz Diego, CENTRAL SUPPLY MANAGER-FIRST HELPER [address] [place] [address] PCP - GeneralInternal Medicine08/06/25
--- OUTSIDE RECORDS SUMMARY | 2025-09-10 10:15 | XMS_ITS | Clinical Summary ---
Author Organization [facility] Address [address] [facility] [place] [address] Care Team Providers Care Primary Products Inspectors Name Role Phone Radha Calix Unavailable [phone] Allergies Active AllergyReactionsCriticalityNoted DateCommentsCephalexinAnaphylaxis,Rash High07/29/2017 Throat swelled [...] by mouth every 8 (eight) hours if fojlis2103/12/2024ctive triamcinolone (Kenalog) 0.1 % cream APPLY a thin layer to trunk and extremities TWICE DAILY HWPHJI5801/22/2025 Active Active Problems No known active problems Encounters DateTypeDepartmentCare PpmpHhzzjixhwlk31/29/2025 2:20 [place] [address] Jo Ann Patino NP Postoperative visit; S/P zajkbnv8208/12/2025amboo [place] [phone] Jo Ann Patino, HEADING MATCHER AND ASSEMBLER 08/07/2025linisync Result Encounter [facility] External Department Unsolicited Henok Lopez, DO 5Clinisync Result Encounter [facility] External Department Unsolicited Henok Lopez, DO 08/05/2025bstract [facility] [address] [phone] Henok Lopez, DO 5Clinisync Result Encounter [facility] External Department Unsolicited Henok Lopez, DO 08/04/2025bstract [facility] [place] [facility] [address] [phone] Henok Lopez, DO 08/04/2025linisync Result Encounter [facility] External Department Unsolicited Henok Lopez, DO 07/31/2025linisync Result Encounter [facility] External Department Unsolicited Jo Ann Patino, HEADING MATCHER AND ASSEMBLER 07/29/2025 11:30 AM EDTRoutine [facility] [address] [phone] Henok Lopez, DO Third trimester ([facility]); 36 weeks gestation of ([facility])07/29/2025 11:00 AM EDTAncillary Procedure [facility] [place] [facility] [address] [phone] Excessive growth affecting management of in third trimester, single or unspecified fetus ([facility])07/25/2025bstract [facility] [address] [phone] Henok Lopez, DO 07/25/2025bstract [facility] [place] [facility] [address] [phone] Henok Lopez, DO 5Clinisync Result Encounter [facility] External Department Unsolicited Jo Ann Patino NP 5Clinisync Result Encounter [facility] External Department Unsolicited Jo Ann Patino NP 07/10/2025 2:10 PM EDTRoutine [facility] [address] Henok Lopez DO Excessive growth affecting management of in third trimester, single or unspecified fetus ([facility]) (Primary Dx); Third trimester ([facility]); 33 weeks gestation of ([facility]); Hematuria, unspecified type07/10/2025 1:30 PM EDTAncillary [place] [address] Excessive growth affecting management of , antepartum, single or unspecified fetus ([facility])06/26/2025 1:30 PM EDTRoutine [facility] [address] Josi Cardoza PA Third trimester ([facility]); 31 weeks gestation of ([facility])5Bamboo flowsheet [facility] HERNANDE[facility] [address] [place] [address] [place] [address] Josi Cardoza PA 06/11/2025 2:00 PM EDTRoutine [facility] [place] [address] Henok Lopez DO Third trimester ([facility]); 29 weeks gestation of ([facility]); Anemia affecting in third trimester ([facility]); Excessive growth affecting management of , antepartum, single or unspecified fetus ([facility])06/11/2025 1:30 PM EDTAncillary Procedure [facility] [place] [address] Size of fetus inconsistent with dates in second trimester ([facility])from Last 3 Months Family History Medical HistoryRelationNameCommentsDiabetesMaternal GrandfatherCancerMaternal GrandmotherRelationNameStatusCommentsDaughterAliveMaternal GrandfatherMaternal GrandmotherSonAlive Social History Tobacco UseTypesPacks/DayYears UsedDateSmoking Tobacco: NeverSmokeless Tobacco: Never Tobacco Cessation:Counseling Given: Not Answered Alcohol UseStandard Drinks/WeekCommentsNever0 (1 standard drink = 0.6 oz pure alcohol)CommentsNoSex and Gender InformationValueDate RecordedSex Assigned at BirthNot on fileLegal AhhJzbznh52/15/2023 11:47 PM EDTGender IdentityNot on fileSexual OrientationNot on file Last Filed Vital Signs Vital SignReadingTime TakenCommentsBlood Zyzargua033/72008/12/2025 2:33 PM EDT Pulse--Temperature--Respiratory Rate--Oxygen Saturation--Inhaled Oxygen Concentration--Crpjmn62.8 kg (187 lb)08/12/2025 2:33 PM BQLQlzeoc399 cm (5' 3 ) 08/12/2025 2:33 PM EDTBody Mass Index33.1309 2:33 PM EDT Plan of Treatment DateTypeDepartmentCare Team (Latest Contact Info)Ttgtypjnido03/05/2025 10:30 AM ESTPostpartum Visit [facility] HERNANDEZ [address] [place] [address] [place] [address] Jo Ann Patino, HEADING MATCHER AND ASSEMBLER [address] [place] [place] [address] 12/16/2025 2:00 PM ESTOffice Visit [facility] HERNANDEZ [address] [place] [address] [place] [address] Henok Lopez DO [address] [place] [place] [address] Health MaintenanceDue DateLast DoneCommentsInfluenza Vaccine (#1)07/15/2025 Procedures Procedure NamePriorityDate/TimeAssociated DiagnosisCommentsALL CBC WITH AUTO SUVXQmysqze22/24/2025 6:40 AM EDT ALL CBC WITH AUTO CRBTRvubfcb39/23/2025 6:16 AM EDT ALL CBC WITH AUTO BMVFMqetxrj61/22/2025 7:42 PM EDT HMHP CBC WITH PLATELET NO LRKMVJYURTWGLulsets49/21/2025 7:10 PM EDT TBH DRUG SCREEN RAPID (URINE)Spegzrh5508/04/2025 6:35 PM EDT US OB BPP W NON-WTWUTK5607/31/2025 11:26 AM EDT POCT URINALYSIS SLOGNGQUEbsorvf36/15/2025 11:44 AM EDT Third trimester ([facility]) 36 weeks gestation of ([facility]) US OB FOLLOW UP TRANSABDOMINAL ACEDNFFHMbaggby37/15/2025 11:19 AM EDT Excessive growth affecting management of in third trimester, single or unspecified fetus ([facility]) US OB BPP W NON-EHOAMM1007/24/2025 11:09 AM EDT US OB BPP W NON-SGRYTB3207/17/2025 3:34 PM EDT POCT URINALYSIS PATHRMXZOtpujue73/27/2025 2:19 PM EDT Third trimester ([facility]) US OB FOLLOW UP TRANSABDOMINAL DDZNJPCCPeflwmb24/27/2025 1:48 PM EDT Excessive growth affecting management of , antepartum, single or unspecified fetus ([facility]) POCT URINALYSIS SLXKZWNNZleoixs59/13/2025 1:39 PM EDT Third trimester ([facility]) POCT URINALYSIS SGHUYARMSabrira16/29/2025 2:52 PM EDT Third trimester ([facility]) US OB FOLLOW UP TRANSABDOMINAL GKASRTUGBvgulby70/29/2025 2:03 PM EDT Size of fetus inconsistent [...] 35.2 g/dLTBHTBH RDW 15.2(H)11.0 - 15.0 %TBHTBH HAL032713 - 450 10 3/uLTBHTBH MPV9.4(L)9.5 - 13.5 [...] John DOCLINISYNCFinal Result Performing OrganizationAddressCity/State/ZIP CodePhone Number [facility] * (ABNORMAL) [facility] CBC WITH PLATELET NO DIFFERENTIAL (08/04/2025 7:10 PM EDT) ComponentValueRef RangeTest MethodAnalysis TimePerformed AtPathologist SignatureTBH WBC10.04.0 - 11.0 10 3/uLTBHTBH RBC3.48(L)4.20 - 5.40 10 6/uLTBH TBH HGB9.2(L)12.0 - 16.0 g/dLTBHTBH HCT28.4(L)36.0 - 48.0 %TBHTBH MCV81.681.0 - 99.0 fLTBHTBH MCH26.4(L)26.7 - 34.0 pgTBHTBH MCHC32.429.9 - 35.2 g/dLTBHTBH RDW14.811.0 - 15.0 %TBHTBH PPG304524 - 450 10 3/uLTBHTBH MPV8.8(L)9.5 - 13.5 fLTBHSpecimen (Source)Anatomical Location / LateralityCollection Method / VolumeCollection TimeReceived Time08/04/2025 7:10 PM EDT08/04/2025 7:13 PM EDT Narrative CLINISYNC - 08/04/2025 7:23 PM EDT Authorizing ProviderResult TypeResult StatusCorey John DOCLINISYNCFinal Result Performing OrganizationAddressCity/State/ZIP CodePhone Number [facility] * [facility] DRUG SCREEN RAPID (URINE) (08/04/2025 [...] DOCLINISYNCFinal Result Performing OrganizationAddressCity/State/ZIP CodePhone Number [facility] * OB BPP W NON-STRESS (07/31/2025 11:26 AM EDT) Only the most recent of3 resultswithin the time period is included. Anatomical RegionLateralityModalityOtherSpecimen (Source)Anatomical Location / LateralityCollection Method / VolumeCollection TimeReceived Time07/31/2025 11:26 AM EDT Narrative 07/31/2025 11:29 AM EDT [facility] ?[address] ? [place] [address] ? Ultrasound Report ? Signed ? Patient: KIANA,TARA A ?MR#: [id number] ?? : 1995 ?Acct:[id number] ?? Age/Sex: 30 / F ?ADM Date: 07/31/25 ?? Loc: [facility] ??250-1 ? Attending Dr: Jo Ann Patino ? Ordering Physician: Jo Ann Patino ?? Date of Service: 07/31/25 ?? Procedure(s): US OB BPP w non-stress ?? Accession Number(s): [id number] ? cc: MATT BRODERICK ; Jo Ann Patino ? [facility] ? [address] ? [place] [address] ? Patient Name: ?? TARA ISLAS ? MRN: [facility]:[id number] ? date: 1995 ?Sex: F ?? Assigned Patient Location: [facility] ?? Current Patient Location: [facility] ?? Accession/Order Number: [id number] ?? Exam Date: 07/31/2025 ??10:05 ?Report Date: [...] Dictation Location: RADIO-PC-30 ? Electronically authenticated by: [id number] ??Y ?? Date: 07/31/2025 ??11:26 ? Dictated By: ?Audrey Kuo M.D. ? Signed By: ?07/31/25 1129 ? DD/ 1126 ? TD/TT: ? Client Services Coordinator: Procedure Note Radiology, Radiologist, - 07/31/2025 [place] [address] Ultrasound Report Signed Patient: TARA ISLAS AMR#: [id number] : 1995Acct:[id number] Age/Sex: 30 / FADM Date: 07/31/25 Loc: [facility] 250-[address]: Jo Ann Patino Ordering Physician: Jo Ann Patino Date of Service: 07/31/25 Procedure(s): US OB BPP w non-stress Accession Number(s): [id number] cc: MATT BRODERICK ; Jo Ann Patino [place] [address] Patient Name: TARA ISLAS MRN: [id number] date: 1995 Sex: F Assigned Patient Location: [facility] Current Patient Location: [facility] Accession/Order Number: [id number] Exam Date: 07/31/2025 10:05 Report Date: 07/31/2025 [...] Kuo M.D. 07/31/2025 11:26 AM Dictation Location: [place] [address] Electronically authenticated by: [id number] Y Date: 1:26 Dictated By: Audrey Kuo M.D. Signed By:07/31/25 1129 DD/ 1126 TD/TT: Client Services Coordinator: Authorizing ProviderResult TypeResult StatusJo Ann Patino NPCLINISYNC [...] Location / LateralityCollection Method / VolumeCollection TimeReceived QyhgJnnkm93/15/2025 11:44 AM EDT Narrative Authorizing ProviderResult TypeResult [...] Radha Calix PA PCP - [facility]05/14/24
== END 2025-09-10 14:01 | disposition home or self-care (01) ==
LOC: FBCO 10:09
PROVIDERS: PCP Nurse Practitioner; Visit Provider Obstetrics & Gynecology
DX: Z39.1 Encounter for care and examination of lactating mother (principal)

== ENCOUNTER 2025-09-16 08:20 | Outpatient (OUT) | payer MEDICAID, SELFPAY ==
--- OUTSIDE RECORDS SUMMARY | 2025-09-16 08:23 | XMS_ITS | Clinical Summary ---
Author Organization [employer] Address [facility]75470 [address] [place] [address] Care Team Providers Care Industrial Waste Treatment Technician Name Role Phone Lukasz Diego APRN-DISTRICT DIRECTOR Primary Care Provider + Allergies Active AllergyReactionsCriticalityNoted [...] colpo at 34 weeks Immunizations ImmunizationAdministration DatesNext TjhWDhP1607/30/2002,06/14/1997,1996, 1996,1996Hepatitis B1,1996,1996HiB06/14/1997, 1996,1996,1996IPV07/30/2002,1996,1996,1996 MMR07/30/2002,06/14/1997 Family History Medical [...] relatives?Twice a week10/15/2021How often do you attend jewish or anglican services?Never1Do you belong to any clubs or organizations such as jewish groups, unions, fraternal or athletic groups, or school groups?No 10/15/2021How often do you attend meetings of the clubs or organizations you belong to?Never10/15/2021re you , , , , never , or living with a partner?Never uaxhelt3310/15/2021UDIT-CAnswerDate RecordedQ1: How often do you have a drink containing alcohol?Monthly or less 10/15/2021Q2: How many drinks containing alcohol do you have on a typical day when you are drinking?1 or Q3: How often do you have six or more drinks on one occasion?Less than uofyshy6410/15/2021Overall Financial Resource Strain (CARDIA)AnswerDate RecordedHow hard is it for you to pay for the very basics like food, housing, medical care, and heating?Somewhat hard02/09/2023 PHQ-2AnswerDate RecordedTotal Jxmnq694Finutah [facility] hospital [place] of Occupational Health - Occupational Stress QuestionnaireAnswerDate [...] a household?No02/09/2023hildcareAnswerDate RecordedDo problems getting child care cook make it difficult for you to work [...] InformationValueDate RecordedSex Assigned at BirthNot on fileLegal UqcRvxjyl71/04/2015 6:14 PM EDTGender IdentityNot on file Sexual OrientationNot on fileOccupationIndustryJob Start 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 coNot on fileNot on fileNot on file Last Filed Vital Signs Vital SignReadingTime TakenCommentsBlood Itydequj045/6804/ 11:21 AM EDT Lejeg982303/12/2024 11:21 AM AUEIvjcvwmfbsf13.7 ??C (98.1 ??F)03/12/2024 11:21 AM EDTRespiratory Pihn395203/12/2024 11:21 AM EDTOxygen Ntydvdihho620%03/12/2024 11:21 AM EDTInhaled Oxygen Concentration--Wvqrae53.8 kg (156 lb 1.6 oz) 03/12/2024 11:21 AM HIOHfdzhy359.5 cm (5' 2 )03/12/2024 11:21 AM EDTBody Mass Index28.55003/12/2024 11:21 AM EDT Plan of Treatment Health MaintenanceDue DateLast DoneCommentsDTaP,Tdap and Td Vaccines (6 - Tdap) , 06/14/1997, 1995, Additional history existsPap Smear , 07/28/2017Adult BMI Eitcigkug23/29/032652/ Depression Ajjpcqmhb94/29//Tobacco Dvtthdkku62/29/ Influenza VaccineDiscontinued Medical Devices Not on file [...] Laboratory Medicine ? [address] ? [place] [address] ? Gynecologic Cytology Consultation ? Patient Name: TARA ISLAS : 1995 (Age: 23) Gender: F Taken: 08/09/2018 Reported: 08/21/2018 Physician(s): Sarabjit Odom M.D. Copy To: ?? [facility] Rec. #: [id number] Acct: # [id number] Final Cytologic Interpretation Cervical (with or without endocervical) ThinPrep: Satisfactory for evaluation. A transformation zone component is present. NEGATIVE FOR INTRAEPITHELIAL LESION OR MALIGNANCY. ?? lvt/08/21/2018 Interpretation performed at [facility], [address] [place] [address], License number: [id number]. Electronically Signed Out By ?HARJEET Cruz(ASCP) Date of Last Menstrual Period: ? 06/14/18 Other Clinical Conditions: z12.4 Screenings for malignant neoplasm of cervix z87.898 Hx of abnormal cervical pap smear Previous abnormal pap Hormone replacement therapy Previous treatment: Colposcopy and LEEP Previous cytology: HSIL, YVETTE II - III Source of Specimen ??Cervical (with or without endocervical) ThinPrep ? Thin Prep Pap (ELECTROMECHANICAL ENGINEER) Fee Code(s): ?? G0145 The Pap test is a screening test with an inherent, but low, probability of error. The Pap test is primarily effective for the diagnosis and prevention of squamous cell carcinoma. Regular screening iscritical for prevention. ThinPrep liquid-based slides, which meet the Guard Sergeant criteria for automated screening, have been screened by the ThinPrep Imaging System (as of 07/31/07) along with an additional manual rescreening by a screen making technician and, if indicated, by a pathologist.Sarabjit Odom M.D. 08/14/2018 Authorizing ProviderResult TypeResult StatusStmirela Odom MDPATHOLOGY/CYTOLOGY ORDERABLESFinal ResultPerforming OrganizationAddressCity/State/ZIP CodePhone Number COPATH from Last 3 Months or Most Recently Relevant to Health Maintenance Insurance Care Teams Team MemberRelationshipSpecialtyStart DateEnd Date Lukasz Diego, DESIGN DRAFTER CHIEF-DISTRICT DIRECTOR [address] [place] [address] PCP - GeneralInternal Medicine08/06/25
--- OUTSIDE RECORDS SUMMARY | 2025-09-16 08:23 | XMS_ITS | Clinical Summary ---
Author Organization [facility] Address [address] [place] [address] Care Team Providers Care Preparation Supervisor Canning Name Role Phone Radha Calix Unavailable Allergies [...] by mouth every 8 (eight) hours if skdlaj9103/12/2024ctive triamcinolone (Kenalog) 0.1 % cream APPLY a thin layer to trunk and extremities TWICE DAILY BNALVJ8901/22/2025 Active Active Problems No known active problems Encounters DateTypeDepartmentCare FlamWrcrqezhoqy87/29/2025 2:20 [place] [address] Jo Ann Patino NP Postoperative visit; S/P kugwmyz1608/12/2025amboo [place] [phone] Jo Ann Patino, REPAIRER HAIRSPRING 08/07/2025linisync Result Encounter [facility] External Department Unsolicited Henok Lopez, DO 5Clinisync Result Encounter [facility] External Department Unsolicited Henok Lopez, DO 08/05/2025bstract [facility] [address] [place] [phone] Henok Lopez, DO 5Clinisync Result Encounter [facility] External Department Unsolicited Henok Lopez, DO 08/04/2025bstract [facility] [place] [facility] [address] [place] [phone] Henok Lopez, DO 08/04/2025linisync Result Encounter [facility] External Department Unsolicited Henok Lopez, DO 07/31/2025linisync Result Encounter [facility] External Department Unsolicited Jo Ann Patino, REPAIRER HAIRSPRING 07/29/2025 11:30 AM EDTRoutine [facility] [address] [place] [phone] Henok Lopez, DO Third trimester ([facility]); 36 weeks gestation of ([facility])07/29/2025 11:00 AM EDTAncillary Procedure [facility] [place] [facility] [address] [place] [phone] Excessive growth affecting management of in third trimester, single or unspecified fetus ([facility])07/25/2025bstract [facility] [address] [place] [phone] Henok Lopez, DO 07/25/2025bstract [facility] [place] [facility] [address] [place] [phone] Henok Lopez, DO 5Clinisync Result Encounter [facility] External Department Unsolicited Jo Ann Patino NP 5Clinisync Result Encounter [facility] External Department Unsolicited Jo Ann Patino NP 07/10/2025 2:10 PM EDTRoutine [facility] [address] [place] [address] Henok Lopez DO Excessive growth affecting management of in third trimester, single or unspecified fetus ([facility]) (Primary Dx); Third trimester ([facility]); 33 weeks gestation of ([facility]); Hematuria, unspecified type07/10/2025 1:30 PM EDTAncillary Procedure [facility] [place] [phone] Excessive growth affecting management of , antepartum, single or unspecified fetus ([facility])06/26/2025 1:30 PM EDTRoutine [facility] [address] [place] [phone] Josi Cardoza PA Third trimester ([facility]); 31 weeks gestation of ([facility])5Bamboo flowsheet [facility] [address] [place] [address] [place] [phone] Josi Cardoza PA from Last 3 Months Family History Medical HistoryRelationNameCommentsDiabetesMaternal GrandfatherCancerMaternal GrandmotherRelationNameStatusCommentsDaughterAliveMaternal GrandfatherMaternal GrandmotherSonAlive Social History Tobacco UseTypesPacks/DayYears UsedDateSmoking Tobacco: NeverSmokeless Tobacco: Never Tobacco Cessation:Counseling Given: Not Answered Alcohol UseStandard Drinks/WeekCommentsNever0 (1 standard drink = 0.6 oz pure alcohol)CommentsNoSex and Gender InformationValueDate RecordedSex Assigned at BirthNot on fileLegal DxuGmhtaf15/15/2023 11:47 PM EDTGender IdentityNot on fileSexual OrientationNot on file Last Filed Vital Signs Vital SignReadingTime TakenCommentsBlood Mxhywkve158/7209/ 2:33 PM EDT Pulse--Temperature--Respiratory Rate--Oxygen Saturation--Inhaled Oxygen Concentration--Lyecfm02.8 kg (187 lb)08/12/2025 2:33 PM CHCYnumdq929 cm (5' 3 ) 08/12/2025 2:33 PM EDTBody Mass Index33.13008/12/2025 2:33 PM EDT Plan of Treatment DateTypeDepartmentCare Team (Latest Contact Info)Bzjufoqdwdw64/05/2025 10:30 AM ESTPostpartum Visit [facility] HERNANDEZ [address] [place] [address] Jo Ann Patino, RUSS [address] [place] [phone] 12/16/2025 2:00 PM ESTOffice Visit [facility] HERNANDEZ [address] [place] [phone] Henok Lopez DO [address] [place] [address] Health MaintenanceDue DateLast DoneCommentsMMR Vaccines (1 of 1 - Standard series)02/02/1997DTaP/Tdap/Td Vaccines (1 - Tdap)02/02/2003Varicella Vaccines (1 of 2 - 13+ 2-dose series)02/02/2009Hepatitis B Vaccines (1 of 3 - 19+ 3-dose series)02/02/2015HPV Vaccines (1 - 3-dose SCDM series)3COVID-19 Vaccine ( - season)2025Influenza Vaccine (#1)2025HIB VaccinesAged OutNo longer eligible based on patient's age to complete this topicHepatitis A VaccinesAged OutNo longer eligible based on patient's age to complete this topic IPV VaccinesAged OutNo longer eligible based on patient's age to complete this topicMeningococcal B VaccineAged OutNo longer eligible based on patient's age to complete this topicMeningococcal VaccineAged OutNo longer eligible based on patient's age to complete this topicPneumococcal Vaccine: Pediatrics (0 to 5 Years) and At-Risk Patients (6 to 64 Years)Aged OutNo longer eligible based on patient's age to complete this topicRotavirus VaccinesAged OutNo longer eligible based on patient's age to complete this topic Procedures Procedure NamePriorityDate/TimeAssociated DiagnosisCommentsALL CBC WITH AUTO PGJZWxfateh81/24/2025 6:40 AM EDT ALL CBC WITH AUTO KYSENhtnsws16/23/2025 6:16 AM EDT ALL CBC WITH AUTO SWJOBspbudz98/22/2025 7:42 PM EDT [facility] CBC WITH PLATELET NO DXTATEYQACMDZfzudmr39/21/2025 7:10 PM EDT [facility] DRUG SCREEN RAPID (URINE)Rjgqsiq9208/04/2025 6:35 PM EDT US OB BPP W NON-UBUDZA1207/31/2025 11:26 AM EDT POCT URINALYSIS IMNBJJJXOlihuxc51/15/2025 11:44 AM EDT Third trimester ([facility]) 36 weeks gestation of ([facility]) US OB FOLLOW UP TRANSABDOMINAL NHQWEIYTPhnmjdd76/15/2025 11:19 AM EDT Excessive growth affecting management of in third trimester, single or unspecified fetus ([facility]) US OB BPP W NON-MOOIKQ9407/24/2025 11:09 AM EDT US OB BPP W NON-LCNEES3607/17/2025 3:34 PM EDT POCT URINALYSIS IRHWUTTIMeagcbh75/27/2025 2:19 PM EDT Third trimester ([facility]) US OB FOLLOW UP TRANSABDOMINAL BNPBHTONKecuiul62/27/2025 1:48 PM EDT Excessive growth affecting management of , antepartum, single or unspecified fetus ([facility]) POCT URINALYSIS XEHWDTPZAlbppqi62/13/2025 1:39 PM EDT Third trimester ([facility]) from Last 3 Months Results [...] 35.2 g/dLTBHTBH RDW 15.2(H)11.0 - 15.0 %TBHTBH OJO651809 - 450 10 3/uLTBHTBH MPV9.4(L)9.5 - 13.5 [...] John DOCLINISYNCFinal Result Performing OrganizationAddressCity/State/ZIP CodePhone Number [facility] * (ABNORMAL) [facility] CBC WITH PLATELET NO DIFFERENTIAL (08/04/2025 7:10 PM EDT) ComponentValueRef RangeTest MethodAnalysis TimePerformed AtPathologist SignatureTBH WBC10.04.0 - 11.0 10 3/uLTBHTBH RBC3.48(L)4.20 - 5.40 10 6/uLTBH TBH HGB9.2(L)12.0 - 16.0 g/dLTBHTBH HCT28.4(L)36.0 - 48.0 %TBHTBH MCV81.681.0 - 99.0 fLTBHTBH MCH26.4(L)26.7 - 34.0 pgTBHTBH MCHC32.429.9 - 35.2 g/dLTBHTBH RDW14.811.0 - 15.0 %TBHTBH VAH536605 - 450 10 3/uLTBHTBH MPV8.8(L)9.5 - 13.5 fLTBHSpecimen (Source)Anatomical Location / LateralityCollection Method / VolumeCollection TimeReceived Time08/04/2025 7:10 PM EDT08/04/2025 7:13 PM EDT Narrative CLIN[facility]NC - 08/04/2025 7:23 PM EDT Authorizing ProviderResult TypeResult StatusCorey John DOCLINISYNCFinal Result Performing OrganizationAddressCity/State/ZIP CodePhone Number [facility] * TB DRUG SCREEN RAPID (URINE) (08/04/2025 6:35 PM [...] DOCLINISYNCFinal Result Performing OrganizationAddressCity/State/ZIP CodePhone Number [facility] * US OB BPP W NON-STRESS (07/31/2025 11:26 AM EDT) Only the most recent of3 resultswithin the time period is included. Anatomical RegionLateralityModalityOtherSpecimen (Source)Anatomical Location / LateralityCollection Method / VolumeCollection TimeReceived Time07/31/2025 11:26 AM EDT Narrative 07/31/2025 11:29 AM EDT [facility] ?[address] ? [place] [address] ? Ultrasound Report ? Signed ? Patient: KIANA,TARA A ?MR#: [id number] ?? : 1995 ?Acct:[id number] ?? Age/Sex: 30 / F ?ADM Date: 07/31/25 ?? Loc: [facility] ??250-1 ? Attending Dr: Jo Ann Patino ? Ordering Physician: Jo Ann Patino ?? Date of Service: 07/31/25 ?? Procedure(s): US OB BPP w non-stress ?? Accession Number(s): [id number] ? cc: MATT BRODERICK ; Jo Ann Patino ? [facility] ? [address] ? [place] [address] ? Patient Name: ?? TARA ISLAS ? MRN: [facility]:[id number] ? date: 1995 ?Sex: F ?? Assigned Patient Location: [facility] ?? Current Patient Location: [facility] ?? Accession/Order Number: [id number] ?? Exam Date: 07/31/2025 ??10:05 ?Report Date: 07/31/2025 ??11:26 ? At the request of: ?? JO ANN ??SSI ? Procedure: ??US OB BPP w non-stress [...] Dictation Location: RADIO-PC-30 ? Electronically authenticated by: [id number] ??Y ?? Date: 07/31/2025 ??11:26 ? Dictated By: ?Audrey Kuo M.D. ? Signed By: ?07/31/25 1129 ? DD/ 1126 ? TD/TT: ? Logistics Lead: Procedure Note Radiology, Radiologist, - 07/31/2025 [place] [address] Ultrasound Report Signed Patient: TARA ISLAS AMR#: [id number] : 1995Acct:[id number] Age/Sex: 30 / FADM Date: 07/31/25 Loc: [facility] 250-[address]: Jo Ann Patino Ordering Physician: Jo Ann Patino Date of Service: 07/31/25 Procedure(s): US OB BPP w non-stress Accession Number(s): [id number] cc: MATT BRODERICK ; Jo Ann Patino The [place] [address] Patient Name: TARA ISLAS MRN: [id number] date: 1995 Sex: F Assigned Patient Location: [facility] Current Patient Location: [facility] Accession/Order Number: [id number] Exam Date: 07/31/2025 10:05 Report Date: 07/31/2025 [...] Kuo M.D. 07/31/2025 11:26 AM Dictation Location: [place] [address] Electronically authenticated by: [id number] Y Date: 1:26 Dictated By: Audrey Kuo M.D. Signed By:07/31/25 1129 DD/ 1126 TD/TT: Logistics Lead: Authorizing ProviderResult TypeResult StatusJo Ann Patino NPCLINISYNC IMAGING Final Result * POCT urinalysis dipstick manually resulted (07/29/2025 11:44 AM EDT) Only the most recent of3 [...] Location / LateralityCollection Method / VolumeCollection TimeReceived LpjdDfhfb13/15/2025 11:44 AM EDT Narrative Authorizing ProviderResult TypeResult StatusCorey John DOPOINT OF CARE TEST ENTER/EDIT ORDERABLESFinal Result * US OB follow up transabdominal approach (07/29/2025 11:19 AM EDT) Only the most recent of2 [...] BY: Aaron Calzada MD Authorizing ProviderResult TypeResult StatusKrkarlee Patino NPIMG OB US PROCEDURESFinal Result from Last 3 Months Insurance Care Teams Team MemberRelationshipSpecialtyStart DateEnd Date Radha Calix PA PCP - [facility]05/14/24
--- OUTSIDE RECORDS SUMMARY | 2025-09-16 08:28 | XMS_ITS | CCD ---
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 ABSOLUTE GFZD2QEIT HealthcareBasophils/100 WBC (Bld)0.2 %0.2 - 2.0 %NOMS HealthcareEosinophils/100 WBC (Bld)0.9 %0.9 - 7.0 %[facility] LouisErythrocyte distribution width (RBC) [Ratio]13 %11.0 - 15.0 %[facility] LouisHematocrit (Bld) [Volume fraction]30.1 %Low36.0 - 48.0 %[facility] LouisHemoglobin (Bld) [Mass/Vol]10 g/dLLow12.0 - 16.0 g/dLThe Rehabilitation Institute of St. LouisIMMATURE GRANULOCYTES ABS AUTO0.17HighThe Rehabilitation Institute of St. LouisImmature granulocytes/100 WBC (Bld)1.7 %High0.0 - 0.5 %[facility] LouisInterpretation and review of laboratory resultsAbnormalThe [facility] Institute of St. LouisLYMPHOCYTES ABSOLUTE AUTO1.5NOMissouri Baptist Hospital-SullivanLymphocytes/100 WBC (Bld) 15.2 %Low20.5 - 60.0 %[facility] (RBC) [Entitic mass]29.2 pg26.7 - 34.0 pgThe [facility] Institute of St. LouisMCHC (RBC) [Mass/Vol]33.2 g/dL29.9 - 35.2 g/dLThe [facility] of [facility] MCV (RBC) [Entitic vol]88 fL81.0 - 99.[address]The [address] LouisMONOCYTES ABSOLUTE AUTO 0.5NOMissouri Baptist Hospital-SullivanMonocytes/100 WBC (Bld)5.4 %1.7 - 12.0 %[facility] NEUTROPHILS ABSOLUTE AUTO7.5HighThe Rehabilitation Institute of St. LouisNeutrophils/100 WBC (Bld)76.6 % High43.0 - 75.0 %[facility]. LouisPlatelet mean volume (Bld) [Entitic vol]9.1 fL Low9.5 - 13.[address]LThe [facility] Institute [address] LouisTBH EO #0.1NOMS [facility] HospitalTB AGN159JUJWCameron Regional Medical Center RBC3.42LowNOCameron Regional Medical Center WBC9.7NOMissouri Baptist Hospital-SullivanCLINISYNCNPhelps HealthUrinalysis macro (dipstick) panel (U)on 31-12-9769Fhbekyykf, UA NegativeNegative - 4(70) +++ mg/dLNOWI HealthcareBlood, UAPositiveNegative - 50 Abhi/mcLNOWI HealthcareComment on above:traceClarity, UAClearNOMS Healthcare Color, UAYellowNOWI HealthcareGlucose, UAPositiveNegative - 2000(110) ++++ mg/dL NOMS HealthcareComment on above:100Interpretation and review of laboratory resultsAbnormalNOMS HealthcareKetones, UANegativeNegative - 160(16) ++++ mg/dL NOMS HealthcareLeukocytes, UANegativeNegative - 500+++ Pura/mcLNOMS Healthcare Nitrite, UANegativeNegative - PositiveNOMS HealthcarepH, UA65 - 9N[facility] Healthcare Protein, UANegativeNegative - 2000(20) ++++ mg/dLNOMS HealthcareSpec Grav, UA 1.011 - 1.03NOMS HealthcareUrobilinogen, UA0.20.2 - 12 mg/dLNOMS HealthcareNOMS HealthcareUrinalysis macro (dipstick) panel (U)on 66-35-4677Vshvjqbpe, UA NegativeNegative - 4(70) +++ mg/dLNOMS HealthcareBlood, [...] HealthcareNo Panel InformationOrdered By: Radiologist Radiology on 36-87-4355[facility] Work Phone: No Panel Informationon 84-81-1599Cwbftglxx Study observation (narrative)NOM HealthcareUS OB ANATOMYon 23-46-3143VovPort [place] [address] Ultrasound Report Signed Patient: BRANDIE BRUNO MR#: [id number] : 1995 Acct:[id number] Age/Sex: 30 / F ADM Date: 04/10/25 Loc: US Attending Dr: Henok Lopez D.O. Ordering Physician: Henok Lopez D.O. Date of Service: 04/10/25 Procedure(s): US OB anatomy Accession Number(s): [id number] cc: MATT SANDRA ; Henok Lopez D.O. [place] [address] Patient Name: BRANDIE BRUNO MRN: [id number] date: 1995 Sex: F Assigned Patient Location: US Current Patient Location: US Accession/Order Number: [id number] Exam Date: 04/10/2025 16:00 Report Date: 04/10/2025 [...] Wynn M.D. 04/10/2025 4:04 PM Dictation Location: [place] [address] Electronically authenticated by: [id number] Y Date: 04/10/2025 16:04 Dictated By: Ashish Wynn D.O. Signed By: 04/10/25 1607 DD/ 1604 TD/TT: Clinical Nurse Leader:TBHRadiology, Radiologist, - 04/10/2025 [place] [address] Ultrasound Report Signed Patient: BRANDIE BRUNO MR#: [id number] : 1995 Acct:[id number] Age/Sex: 30 / F ADM Date: 04/10/25 Loc: US Attending Dr: Henok Lopez D.O. Ordering Physician: Henok Lopez D.O. Date of Service: 04/10/25 Procedure(s): US OB anatomy Accession Number(s): [id number] cc: MATT SANDRA ; Henok Lopez D.O. The [address] [address] Patient Name: BRANDIE BRUNO MRN: [id number] date: 1995 Sex: F Assigned Patient Location: Current Patient Location: US Accession/Order Number: [id number] Exam Date: 04/10/2025 16:00 Report Date: 04/10/2025 [...] Wynn M.D. 04/10/2025 4:04 PM Dictation Location: [place] [address] Electronically authenticated by: [id number] Y Date: 04/10/2025 16:04 Dictated By: Ashish Wynn D.O. Signed By: 04/10/25 1607 DD/ 1604 TD/TT: Clinical Nurse Leader: MANDEEP Piña OB CERVICAL LENGTHon 04-82-5341IbnPort [place] [address] Ultrasound Report Signed Patient: BRANDIE BRUNO MR#: [id number] : 1995 Acct:[id number] Age/Sex: 30 / F ADM Date: 04/10/25 Loc: US Attending Dr: Henok Lopez D.O. Ordering Physician: Henok Lopez D.O. Date of Service: 04/10/25 Procedure(s): US OB cervical length Accession Number(s): [id number] cc: MATT SANDRA Corey D.O. The [address] [address] Patient Name: BRANDIE BRUNO MRN: [id number] date: 1995 Sex: F Assigned Patient Location: US Current Patient Location: US Accession/Order Number: [id number] Exam Date: 04/10/2025 16:04 Report Date: 04/10/2025 16:04 At the request of: HENOK LOPEZ DO Procedure: US OB cervical length Obstetrical ultrasound to assess for cervical length Cervical length 3.9 cm. Os closed. US/US OB cervical length IMPRESSION: Cervical length 3.9 cm. Impression dictated by: Ashish Wynn M.D. 04/10/2025 4:04 PM Dictation Location: [facility]16 Electronically authenticated by: [id number] Y Date: 04/10/2025 16:04 Dictated By: Ashish Wynn D.O. Signed By: 04/10/25 1607 DD/ 1604 TD/TT: Clinical Nurse Leader:TBHRadiology, Radiologist, - 04/10/2025 [place] [address] Ultrasound Report Signed Patient: BRANDIE BRUNO MR#: [id number] : 1995 Acct:[id number] Age/Sex: 30 / F ADM Date: 04/10/25 Loc: US Attending Dr: Henok Lopez D.O. Ordering Physician: Henok Lopez D.O. Date of Service: 04/10/25 Procedure(s): US OB cervical length Accession Number(s): [id number] cc: MATT SANDRA ; Henok Lopez D.O. The [place] [id number] Patient Name: BRANDIE BRUNO MRN: [id number] date: 1995 Sex: F Assigned Patient Location: US Current Patient Location: US Accession/Order Number: [id number] Exam Date: 04/10/2025 16:04 Report Date: 04/10/2025 16:04 At the request of: HENOK LOPEZ DO Procedure: US OB cervical length Obstetrical ultrasound to assess for cervical length Cervical length 3.9 cm. Os closed. US/US OB cervical length IMPRESSION: Cervical length 3.9 cm. Impression dictated by: Ashish Wynn M.D. 04/10/2025 4:04 PM Dictation Location: [place] [address] Electronically authenticated by: [id number] Y Date: 04/10/2025 16:04 Dictated By: Ashish Wynn D.O. Signed By: 04/10/25 1607 DD/ 1604 TD/TT: Clinical Nurse Leader: MANDEEP HealthcareRECURRENT VAGINITIS (HTRX)on 68-14-6180YAJRBGPUR OSUEEEK00.45 AbnormalNOMS HealthcareATOPOBIUM VAGINAEDetectedAbnormalNOMS HealthcareBVAB 2,3 (BACTERIAL VAGINOSIS ASSOCIATED BACTERIA 2, 3); MOBILUNCUS SPP17.543AbnormalNOMS HealthcareBVAB 2,3 (BACTERIAL VAGINOSIS ASSOCIATED BACTERIA 2, 3); MOBILUNCUS SPPDetectedAbnormalNOMS HealthcareCANDIDA ALBICANS, PARAPSILOSIS, TROPICALIS0 NOMS HealthcareCANDIDA ALBICANS, PARAPSILOSIS, TROPICALISNot detectedNOMS HealthcareCANDIDA KXQCOFIQ1LJJK HealthcareCANDIDA GLABRATANot detectedNOMS HealthcareCANDIDA TSDEFU33.514AbnormalNOMS HealthcareCANDIDA KRUSEIDetected AbnormalNOMS HealthcareCHLAMYDIA EKISRMEJBCH4GEXP HealthcareCHLAMYDIA TRACHOMATISNot detectedNOMS HealthcareERMB, C; MEFA22.692AbnormalNOMS Healthcare ERMB, C; MEFADetectedAbnormalNOMS HealthcareGARDNERELLA SNRXMFTQP11.666Abnormal NOMS HealthcareGARDNERELLA VAGINALISDetectedAbnormalNOMS Healthcare Interpretation and review of laboratory resultsAbnormalNOMS Healthcare MEGASPHAERA (TYPES 1, 2)21.837AbnormalNOMS HealthcareMEGASPHAERA (TYPES 1, 2) DetectedAbnormalNOMS HealthcareMYCOPLASMA HJPBJYEZXU9WOFL HealthcareMYCOPLASMA GENITALIUMNot detectedNOMS HealthcareNEISSERIA HKVWWQKFTZF4AMNI Healthcare NEISSERIA GONORRHOEAENot detectedNOMS HealthcareTET B, TET M20.933AbnormalNOMS HealthcareTET B, TET MDetectedAbnormalNOMS HealthcareTRICHOMONAS KJSWKQQQK5QPST HealthcareTRICHOMONAS VAGINALISNot detectedNOMS HealthcareNOMS Healthcare Urinalysis macro (dipstick) panel (U)on 63-89-7376Jxslbcdrq, UANegativeNegative - 4(70) +++ mg/dLNOMS HealthcareBlood, UAPositiveNegative [...] - 1.03NOMS HealthcareUrobilinogen, UA0.20.2 - 12 mg/dLNOMS HealthcareNOWI HealthcareUrinalysis macro (dipstick) panel (U)on 02-26-2025 Bilirubin, UANegativeNegative - 4(70) +++ mg/dLNOMS HealthcareBlood, UANegative Negative - 50 Abhi/mcLNOMS HealthcareClarity, UAClearNOMS HealthcareColor, UA YellowNOMS HealthcareGlucose, UANegativeNegative - 2000(110) ++++ mg/dLNOMS HealthcareInterpretation and review of laboratory resultsNormalNOWI Healthcare Ketones, UANegativeNegative - 160(16) ++++ mg/dLNOMS HealthcareLeukocytes, UA NegativeNegative - 500+++ Pura/mcLNOWI HealthcareNitrite, UANegativeNegative - PositiveNOMS HealthcarepH, UA65 - 9NOMS HealthcareProtein, UANegativeNegative - 1999(20) ++++ mg/dLNOMS HealthcareSpec Grav, UA1.021 - 1.03NOMS Healthcare Urobilinogen, UA0.20.2 - 12 mg/dLNOMS HealthcareNOMS HealthcareUS OB TRANSVAGINALon 39-42-5560FS OB TRANSVAGINALEXAM: US OB TRANSVAGINAL HISTORY: Dating. [...] II, MD, PHD at 27-Jan-2025 07:45:14 AM [facility] TeleradiologyNormalNot AvailableComment on above:Order Comment: US OB TRANSVAGINAL No LMP recorded.IGP,APTIMA HPV,AGE GDLNon 65-09-7897UNL GDLN ACOG TESTINGNote. NOMS HealthcareComment on above:TESTS RESULT FLAG UNITS REF RANGE LAB Clinician Provided Cytology Information Source.............Cervix;Endocervix No. of containers..01 ThinPrep Vial Age Ronano YAS Violetta... FLAG LEGEND: L-Low Normal,H-High Normal,LL-Alert Low,HH-Alert High <-Panic Low,>-Panic High,A-Abnormal,AA-Critical Abnormal Performed at: 01 =G [facility] [address] [place] [address] Adriana Pfeiffer MD, IGP, RFX APTIMA HPV ASCUNote.NOMS HealthcareComment on above:TESTS RESULT FLAG UNITS REF RANGE LAB DIAGNOSIS: 02 NEGATIVE FOR INTRAEPITHELIAL LESION OR MALIGNANCY. Specimen adequacy: 02 Satisfactory for evaluation. Endocervical and/or squamous metaplastic cells (endocervical component) are present. Performed by: Kristyn Barbosa, Belt Back Operator ([facility]) . 02 Note: Note 02 [...] <-Panic Low,>-Panic High,A-Abnormal,AA-Critical Abnormal Performed at: [address] [address] Adriana Pfeiffer MD, Performed at: =G - [facility] [address] [id number] Dehydrogenation Operator Head: Adriana Pfeiffer MD, Phone: [phone] Performed at: [facility] [address] [id number] Dehydrogenation Operator Head: Adriana Pfeiffer MD, Phone: [phone] [facility] CERVIX ENDOCERVIX CLINISYMethod[facility] , urineon 60-13-3692Ylqt HCG ( test) Ql (U)NegativeSt. Mary Rehabilitation HospitalPOCT Influenza A/Influenza B/SARS-COV-2 VeritorOrdered By: Ellie Ruvalcaba on 46-57-1242Otdwqqfg Poct Influenza A AntigenNegativeMercy Health St. Charles HospitalExternal Poct Influenza B AntigenNegativeAtrium HealthARS-CoV-2 (COVID-19) Ag IA.rapid Ql (Resp)NegativeSt. Mary Rehabilitation HospitalPOCT rapid strep Aon 85-81-1769Oxeajnns Rn Vascular Check Completed and PassedSouthern Ohio Medical CenterInterpretation and review of laboratory resultsNoECU Health Bertie Hospital. pyogenes Ag IA Ql (Unsp spec)NegativeNegativeMercy Health St. Charles Hospital ProMAkron Children's HospitalUS PELVIS AND TRANSVAGon 99-74-7455LT PELVIS AND TRANSVAG EXAM: Pelvic ultrasound HISTORY: [...] Electronically authenticated by: SAHARA APODACA Date: 2022-12-01 08:05[facility] CenterUS PELVIS TRANSVAGon 33-65-8984BE PELVIS TRANSVAGEXAMINATION: US PELVIS TRANSVAG HISTORY: Pelvic [...] Electronically authenticated by: YAMEL GOMEZ Date: 2022-02-10 14:27[facility] Vital Signs Date TimeVital SignValuePerforming UemlpxlfcJgudimfi41-20-1815 14:33-0400Body bctdaa950 cmNorm Patino NP Work Phone: [facility]. LouisMeydrpghis26-72-3252 14:33-0400Body mass index (BMI) [Ratio]33.13 kg/w3FclgkjdwNorm Patino NP Work Phone: [facility] LouisJdtrqduvpq09-57-4640 14:33-0400Body btzpen07.82 kgNorm Patino [employer] INTERNSHIP Work Phone: [phone]-[facility]3[place] [address]Tnvirtknvy21-89-0168 14:33-0400Diastolic blood iqqopzna95 mm[Hg]Norm Patino [employer] Work Phone: [phone]-[facility]6[place] [address]Wjglgsitxa28-23-3349 14:33-0400Systolic blood fstaonhb536 mm[Hg]Norm Patino [employer] Work Phone: [phone] [place] [address]-15-2025 11:39-0400Body mass index (BMI) [Ratio]35.1 kg/h4Toehm John DO Work Phone: [phone] [place] [address]-15-2025 11:39-0400Body .87 kgCorey John DO Work Phone: [phone] [place] [address]-15-2025 11:39-0400Diastolic blood zcjajevw30 mm[Hg]Henok John DO Work Phone: [phone])[facility] [place] [address]-15-2025 11:39-0400Systolic blood fkpbuwrj025 mm[Hg]Henok John DO Work Phone: [phone] [place], [place] [address]Klmdhhygjh28-94-0461 14:13-0400Body mass index (BMI) [Ratio]34.9 kg/v8Klang John DO Work Phone: [phone] [place], [place] [address]Yhblhjxutv32-65-9641 14:13-0400Body eysgta62.36 kgCorey John DO Work Phone: [phone] [place] [address]-27-2025 14:13-0400Diastolic blood mm[Hg]Henok John DO Work Phone: [phone])458-[address] [place] [address]-27-2025 14:13-0400Systolic blood mm[Hg]Henok John DO Work Phone: [phone])424-[facility]5[place] [address]Vcxrjwudwk73-64-7700 13:34-0400Body mass index (BMI) [Ratio]34.28 kg/m2Amy Sony PA Work Phone: [facility] LouisJmymcuvmse90-15-9408 13:34-0400Body .77 kgAmy Raleigh PA Work Phone: [facility] LouisGuvokyyyag23-91-6296 13:34-0400Diastolic blood nvahnjwy71 mm[Hg]Josi Sony PA Work Phone: [facility] LouisHcwozxxbnt15-21-6848 13:34-0400Systolic blood kjxnjluk215 mm[Hg]Josi Sony PA Work Phone: [phone]-[facility] LouisPgerjrwpnc27-83-7104 14:47-0400Body mass index (BMI) [Ratio]34.06 kg/y1Fouts John DO Work Phone: [facility] LouisEitbzvlvbe57-55-8244 14:47-0400Body .2 kg Henok John DO Work Phone: [facility] LouisDpnjkezdjh41-86-5761 14:47-0400Diastolic blood lptoncve10 mm[Hg]Henok John DO Work Phone: [phone]-[facility] LouisRphanhfimi53-27-7818 14:47-0400Systolic blood owkjjysr910 mm[Hg]Henok John DO Work Phone: [phone])936-[facility] LouisUaahxvhlme88-98-2200 13:39-0400Body mass index (BMI) [Ratio]33.66 kg/m2Amy Sony PA Work Phone: [facility] LouisCkffmhogrh66-83-4304 13:39-0400Body .18 kgJosi Duenas PA Work Phone: [phone] [place], [place] [address]Hkfgmosffr35-35-8381 13:39-0400Diastolic blood adhycfof13 mm[Hg]Josi Duenas PA Work Phone: [phone]-[facility] LouisXywmplrbai24-90-2049 13:39-0400Systolic blood aarfcnlt892 mm[Hg]Josi Duenas PA Work Phone: [facility]. LouisBrvmgyzkai00-12-1951 09:09-0400Body mass index (BMI) [Ratio]32.42 kg/c2Hdurb John DO Work Phone: [phone] [place], [place] [address]Eudidcodzu01-33-5414 09:09-0400Body lpcwin94.01 kgCorey John DO Work Phone: [phone])[address] [place], [place] [address]06-19-2025 09:09-0400Diastolic blood kxwzynkr30 mm[Hg]Henok John DO Work Phone: 1(137)[facility] [place], [place] [address]Vrnkqwxgbe25-42-4722 09:09-0400Systolic blood tnevtlba875 mm[Hg]Henok John DO Work Phone: [phone])[address] [place], [place] [address]05-21-2025 09:41-0400Body mass index (BMI) [Ratio]31 kg/m2Amy Sony HERNANDEZ Work Phone: [phone])[address] [place], [place] [address]05-21-2025 09:41-0400Body zqhoyp87.38 kgAmy Sony HERNANDEZ Work Phone: 1(380)[facility] [place], [place] [address]Szzgvxwxyd01-97-2885 09:41-0400Diastolic blood whxsgeyi42 mm[Hg]Josi HERNANDEZ Work Phone: [phone])[address] [place], [place] [address]05-21-2025 09:41-0400Systolic blood kcedberk971 mm[Hg]Josi HERNANDEZ Work Phone: [phone] [place], [place] [address]Myauxzlcsf61-10-5728 09:50-0400Body mass index (BMI) [Ratio]29.94 kg/b4Tvssr John DO Work Phone: [phone])[address] [place], [place] [address]04-15-2025 09:50-0400Body dwdwor00.66 kgCorey John DO Work Phone: [phone])[facility] [place], [place] [address]Xdplexpfjd38-00-1844 09:50-0400Diastolic blood fokroteq16 mm[Hg]Henok John DO Work Phone: 1(628)[facility] [place], [place] [address]Aqpbdschhp09-52-0153 09:50-0400Systolic blood wtgifhvf258 mm[Hg]Henok John DO Work Phone: [phone])[address] [place], [place] [address]01-28-2025 13:26-0500Body mass index (BMI) [Ratio]29.05 kg/s7Eicdt John DO Work Phone: 1(159)[address] [place], [place] [address]01-28-2025 13:050Body arfrzg25.39 kgCorey John DO Work Phone: [facility] LouisWsvylsydsz58-56-8432 13:Diastolic blood qazwyeyo68 mm[Hg]Henok John DO Work Phone: [facility] LouisNotmalpkfy83-74-4398 13:Systolic blood sxeipuls034 mm[Hg]Henok John DO Work Phone: [facility] LouisIvzwaulksu46-09-0690 15:040Body .48 cmBl[facility]08-20-2024 15:0400Body mass index (BMI) [Ratio]29.2 kg/o9WhxuowwsiBlanchard Valley Health System [facility]08-20-2024 15:040Body dhmnku61.57 kgBlanchard Valley Health System [facility]04-29-2024 11:0400Body height 157.5 Francoiselizabeth AscencioSandra RAILROAD SIGNAL TECHNICIAN-MUFF W[employer]ER Work Phone: [facility]04-29-2024 11:-0400Body mass index (BMI) [Ratio]28.55 kg/m0BepywjeMatt Ascencioillo RAILROAD SIGNAL TECHNICIAN-MUFF WINDER Work Phone: [facility]04-29-2024 11:-040Body dryiuwfkier29.1 [degF]Matt Ascencioillo RAILROAD SIGNAL TECHNICIAN-MUFF WINDER Work Phone: [facility]04-29-2024 11:-040Body krejei36.81 kgMatt Sandra RAILROAD SIGNAL TECHNICIAN-MUFF WINDER Work Phone: [facility]04-29-2024 11:-040Diastolic blood smzeiszo06 mm[Hg]Matt Ascencioloreta HERNANDEZN-MUFF WINDER Work Phone: [facility]04-29-2024 11:-0400Heart rate 79 /minMatt Sandra RAILROAD SIGNAL TECHNICIAN-MUFF WINDER Work Phone: [facility]04-29-2024 11:21-0400 Respiratory rate20 /minValerie Sandra RAILROAD SIGNAL TECHNICIAN-MUFF WINDER Work Phone: [facility] CenterPfenexil [employer] Mikpbu27-81-5233 11:21-9247GjF8% (BldA) [Mass fraction]100 %Matt Sandra APRN-MUFF WINDER Work Phone: [facility] [employer] Jjqkca35-65-4760 11:21-0400Systolic blood kugokwat249 mm[Hg]Matt Sandra APRN-MUFF WINDER Work Phone: [facility] [employer] Ncbitj05-56-1319 11:53-0400Body euqlhg420.5 cmCuco Ceron RAILROAD SIGNAL TECHNICIAN-MUFF WINDER Work Phone: [facility] [employer] Iyedel18-85-6962 11:53-0400Body mass index (BMI) [Ratio]28.9 kg/f4VaxnvlCuco Ceron RAILROAD SIGNAL TECHNICIAN-MUFF WINDER Work Phone: [facility] [employer] Sivzze65-25-1692 11:53-0400Body cdfxqypaglg59.2 [degF]Cuco Ceron RAILROAD SIGNAL TECHNICIAN-MUFF WINDER Work Phone: [facility] [employer] Xemcqf17-66-2943 11:53-0400Body .67 kgCuco Ceron RAILROAD SIGNAL TECHNICIAN-MUFF WINDER Work Phone: [facility] [employer] Hjddvc81-52-5348 11:53-0400Diastolic blood djtkihwh14 mm[Hg]Cuco Ceron RAILROAD SIGNAL TECHNICIAN-MUFF WINDER Work Phone: [facility] [employer] Pecofc39-82-2456 11:53-0400Heart rate 97 /minCuco Ceron RAILROAD SIGNAL TECHNICIAN-MUFF WINDER Work Phone: [facility] [employer] Dcodmy93-02-6221 11:53-0400 Respiratory rate18 /minCuco Ceron RAILROAD SIGNAL TECHNICIAN-MUFF WINDER Work Phone: [facility] [employer] Eslwso77-01-4076 11:53-4820CtP0% (BldA) [Mass fraction]97 %Cuco Ceron RAILROAD SIGNAL TECHNICIAN-MUFF WINDER Work Phone: [facility] [employer] Udwybz44-73-6862 11:53-0400Systolic blood oguwrblo716 mm[Hg]Cuco Ceron RAILROAD SIGNAL TECHNICIAN-MUFF WINDER Work Phone: [facility] CenterGreenTrapOnline02-20-2024 10:16-0500Body suvvwl659.5 Alfredo Sandra RAILROAD SIGNAL TECHNICIAN-MUFF WINDER Work Phone: [facility] HospitalCom[facility]02-20-2024 10:16-0500Body mass index (BMI) [Ratio]29.23 kg/g7PbrhtapMatt Sandra APRN-MUFF WINDER Work Phone: [facility] CenterGreenTrapOnline02-20-2024 10:16-0500Body nfbjuqycqaz85.3 [degF]Matt Sandra APRN-MUFF WINDER Work Phone: [facility] HospitalComixology02-20-2024 10:16-0500Body fiaqpl68.48 kgMatt Sandra APRN-MUFF WINDER Work Phone: [facility] CenterGreenTrapOnline02-20-2024 10:16-0500Diastolic blood rvjattsi24 mm[Hg]Matt Sandra APRN-MUFF WINDER Work Phone: [facility] CenterGreenTrapOnline02-20-2024 10:16-0500Heart rate 72 /minMatt Sandra APRN-MUFF WINDER Work Phone: [facility] CenterGreenTrapOnline02-20-2024 10:16-4926OdZ8% (BldA) [Mass fraction]99 %Matt Sandra APRN-MUFF WINDER Work Phone: [facility] CenterGreenTrapOnline02-20-2024 10:16-0500Systolic blood fkpmbbic695 mm[Hg]Matt Sandra RAILROAD SIGNAL TECHNICIAN-MUFF WINDER Work Phone: [facility]3CLog[facility] Encounters Encounter DateEncounter TypeCare ProviderFacilityStart: 08-12-2025 End: 62-64-0496vbpvhoaukyBKNSOCMH EBERLYNot AvailableStart: 08-12-2025 End: 20-87-8038Imjrmn follow up visit related to original Stefan Patino NP Work Phone: NOMS Michelle OBGYNComment on above:Postoperative visit; S/P sectionStart: 08-12-2025 End: 30-69-3147Mnigzt Saul Patino [employer] INTERNSH[employer] Work Phone: [facility] Michelle OBGYNStart: 08-12-2025 End: 81-40-5190Jmkggq flowsJustyn Patino Q[employer] INTERNSH[employer] Work Phone: [facility] OBGYNStart: 08-07-2025 End: 56-11-9088Febzlwmpd Result EncounterCorey John DO Work Phone: NOZG External Department UnsolicitedStart: 08-07-2025 End: 75-72-5621Dwxngwyni Result EncounterCorey John DO Work Phone: NOBK External Department UnsolicitedStart: 08-06-2025 End: 29-97-8855Edvuzivzo Result EncounterCorey John DO Work Phone: NOLO External Department UnsolicitedStart: 08-06-2025 End: 03-61-7925Zyewiecat Result EncounterCorey John DO Work Phone: NOKL External Department UnsolicitedStart: 08-05-2025 End: 19-05-5341Emkttuifk Result EncounterCorey John DO Work Phone: NOPY External Department UnsolicitedStart: 08-05-2025 End: 91-17-1493Rwunrdlur Result EncounterCorey John DO Work Phone: NOCQ External Department UnsolicitedStart: 08-04-2025 End: 02-81-1791Gqlaegsqe Result EncounterCorey John DO Work Phone: [facility] External Department UnsolicitedStart: 08-04-2025 End: 43-03-5530Hgeioaczc Result EncounterCorey John DO Work Phone: NOAG External Department UnsolicitedStart: 07-31-2025 End: 39-08-4103Fqnldxajc Result EncounterNorm Pulliamly [employer] Work Phone: noms External Department UnsolicitedStart: 07-31-2025 End: 42-61-5344Wdebiffmt Result EncounterNorm Pulliamly [employer] Work Phone: noms External Department UnsolicitedStart: 07-29-2025 End: 77-14-9930Lnktmc outpatient visit 15 minutesCorey John DO Work Phone: noms [place] OBGYNComment on above:Third trimester ([facility]); 36 weeks gestation of ([facility])Start: 07-29-2025 End: 35-51-0727gqgftyogwoJZQRU FAZIONot AvailableStart: 07-24-2025 End: 47-35-9971Sfkxgimas Result EncounterNorm Scanlonerly [employer] Work Phone: noms External Department UnsolicitedStart: 07-24-2025 End: 07-68-3278Gsorktcvq Result EncounterNorm Pulliamly [employer] Work Phone: noms External Department UnsolicitedStart: 07-17-2025 End: 49-63-3381Usnwksnts Result EncounterNorm Pulliamly [employer] Work Phone: noms External Department UnsolicitedStart: 07-17-2025 End: 29-97-6085Wooncapsb Result EncounterNorm Scanlonerly [employer] Work Phone: noms External Department UnsolicitedStart: 07-10-2025 End: 54-55-8707Dcjiip outpatient visit 15 minutesCorey John DO Work Phone: noms [place] OBGYNComment on above:Excessive growth affecting management of in third trimester, single or unspecified fetus ([facility]) (Primary Dx); Third trimester ([facility]); 33 weeks gestation of ([facility]); Hematuria, unspecified typeStart: 07-10-2025 End: 05-69-6978naytpobhzjCSBWZ FAZIONot AvailableStart: 06-26-2025 End: 35-71-3537Obbgbg flowsDaisy Kimvamshi HERNANDEZ Work Phone: NOMS Robersonue OBGYNStart: 06-26-2025 End: 76-63-0250Qzugkj flowsalvaroJosi HERNANDEZ Work Phone: noMS Robersonue OBGYNStart: 06-26-2025 End: 47-26-1318Mqwovs outpatient visit 15 minutesAmy Sony HERNANDEZ Work Phone: NOMS AndersonCornwall OBGYNComment on above:Third trimester ([facility]); 31 weeks gestation of ([facility])Start: 06-26-2025 End: 95-08-5729gwbwiedyzsNHO RAMEYNot AvailableStart: 06-11-2025 End: 64-08-7956bmmllzlnmnDTEQV FAZIONot AvailableStart: 06-11-2025 End: 87-45-6434Uocnwe outpatient visit 15 minutesCorey John DO Work Phone: NOMS [place] OBGYNComment on above:Third trimester ([facility]); 29 weeks gestation of ([facility]); Anemia affecting in third trimester ([facility]); Excessive growth affecting management of , antepartum, single or unspecified fetus ([facility])Start: 06-11-2025 End: 81-03-4040hpjjiozhukSZCLO FAZIONot AvailableStart: 05-29-2025 End: 71-99-4067Jyfxlhgqg Result EncounterCorey John DO Work Phone: noMS External Department UnsolicitedStart: 05-29-2025 End: 27-85-8043Opuxfvfrs Result EncounterCorey John DO Work Phone: noms External Department UnsolicitedStart: 05-29-2025 End: 68-93-0005aehzgluutpDTG RAMEYNot AvailableStart: 05-29-2025 End: 16-93-0448Ijzzii outpatient visit 15 minutesJosi HERNANDEZ Work Phone: noms BCP OBComment on above:Size of fetus inconsistent with dates in second trimester ([facility]) (Primary Dx); Second trimester ([facility]); 27 weeks gestation of ([facility])Start: 05-02-2025 End: 20-71-3259Ylnytx flowsheetCorey John DO Work Phone: NOLY BCP OBStart: 05-02-2025 End: 37-82-6002Iwjpqn flowsheetCorey John DO Work Phone: NOKK BCP OBStart: 05-02-2025 End: 07-98-4347omzdckheqiBDBWH FAZIONot AvailableStart: 05-02-2025 End: 54-15-0352Pckooy outpatient visit 15 minutesCorey John DO Work Phone: NOMS BCP OBComment on above:Diabetes mellitus screening; Second trimester ([facility]); 23 weeks gestation of ([facility])Start: 04-10-2025 End: 19-10-6574Wvevrzcyr Result EncounterCorey John DO Work Phone: NORT External Department UnsolicitedStart: 04-10-2025 End: 93-91-3465Vzjrevffg Result EncounterCorey John DO Work Phone: NOTX External Department UnsolicitedStart: 04-03-2025 End: 06-81-9241Nyuliq flowsDaisy HERNANDEZ Work Phone: NOGE BCP OBStart: 04-03-2025 End: 02-08-4051Vqxobh flowsheetJosi HERNANDEZ Work Phone: NOMS BCP OBStart: 04-03-2025 End: 29-11-7204Nzzjlhyc Result EncounterJosi HERNANDEZ Work Phone: NOMS External Department UnsolicitedStart: 04-03-2025 End: 59-48-5413Ijdluo outpatient visit 15 minutesJosi HERNANDEZ Work Phone: NOMS BCP OBComment on above:Second trimester ; 18 weeks gestation of ; Screening, , for anatomic survey; Screening examination for STI; Need for maternal serum alpha-protein (MSAFP) screeningStart: 04-03-2025 End: 05-21-0827hvfqpxnmvzNFF RAMEYNot AvailableStart: 02-26-2025 End: 73-82-4876Qyfdoo flowsheetCorey John DO Work Phone: NOUF BCP OBStart: 02-26-2025 End: 97-98-1553Mgwbdx flowsheetCorey John DO Work Phone: NOAL BCP OBStart: 02-26-2025 End: 80-53-9398Mexodf outpatient visit 15 minutesCorey John DO Work Phone: NODS BCP OBComment on above:Second trimester ; 12 weeks gestation of pregnancyStart: 02-26-2025 End: 36-55-0734vmbalrblwnERWJP FAZIONot AvailableStart: 01-25-2025 End: 16-01-0589cgqrptnjxiWPRMI FAZIONot AvailableStart: 12-11-2024 End: 79-12-1369Odplwl flowsheetCorey John DO Work Phone: NODF BCP OBStart: 12-11-2024 End: 69-28-4712Tbaqer flowsheetCorey John DO Work Phone: NOOB BCP OBStart: 12-11-2024 End: 50-30-3044Mbztibtnp Result EncounterCorey John DO Work Phone: NOWG External Department UnsolicitedStart: 12-11-2024 End: 21-05-6202Hkkslkw encounter procedureCorey John DO Work Phone: NOMS HealthcareStart: 12-11-2024 End: 69-64-0916Lotnmhar preventive med est patient 18-39 yrsCorey John DO Work Phone: NOMS BCP OBComment on above:Well woman exam with routine gynecological examStart: 12-11-2024 End: 62-05-5157gzitcgdlleHXNHG FAZIONot AvailableStart: 07-03-2024 End: 32-86-0754pnmpnvrdliGpehlecowClinton Memorial Hospital Work Phone: Start: 07-03-2024 End: 31-83-0243Bjiutlh encounter procedureNov[facility] Work Phone: Start: 05-30-1058Vic-patient / Non-visitNov[facility] Work Phone: Start: 03-12-2024 End: 23-39-4345nsxokntelqUJOZHHASwedish [facility] Start: 03-12-2024 End: 22-13-0014Fjwudc outpatient visit 15 minutesMatt Sandra RAILROAD SIGNAL TECHNICIAN-[employer] Work Phone: [facility] Internal Medicine - Family MedicineComment on above:Anxiety and depression (Primary Dx); Nausea; Syncope, unspecified syncope typeStart: 02-27-2024 End: 39-44-7960btxlzogtaiKHDIKF Jose [facility] Hospitaltart: 50-03-5465Jixitzdey encounterMikala Murphy CMAWilson Memorial Hospital [facility] Cent[facility]art: 02-08-2024 End: 43-32-4361qvxdrkvdvwZQIFVQBatavia [facility] PPGStart: 02-08-2024 End: 84-80-5314Dldflh outpatient visit 15 minutesCuco Ceron RAILROAD SIGNAL TECHNICIAN-[employer] Work Phone: [facility] Internal Medicine - Family MedicineComment on above:Viral upper respiratory tract infection (Primary Dx); Chills; Epigastric pain; Syncope and collapse; Gastroesophageal reflux disease, unspecified whether esophagitis presentStart: 01-03-2024 End: 60-21-7081ylhxwvdwgmDUXSGQFSwedish Medical Center [facility] Start: 01-03-2024 End: 85-76-9961Oklenh outpatient visit 15 minutesMatt Sandra RAILROAD SIGNAL TECHNICIAN-[employer] Work Phone: [facility] Internal Medicine - Family MedicineComment on above:Anxiety and depression (Primary Dx)Start: 12-01-2022 End: 79-22-0931vxigaezodeOY HENOK FAZIOFacility:F3Rwhrk: 11-30-2022 End: 77-75-5007nipdxlzwvaFQ HENOK FAZIOFacility:H8Kxtnt: 02-10-2022 End: 99-34-2462iahmhqnfpjYU HENOK FAZIOFacility:J8Flvat: 07-29-2017 End: 45-28-4989Aicrpibln department patient visitVeterans Health Administration Procedures DateProcedureProcedure DetailPerforming ClinicianStart: 85-32-4464FRV CBC WITH AUTO DIFFCorey John DO Work Phone: Start: 50-17-4846LIT CBC WITH AUTO DIFFCorey John DO Work Phone: Start: 67-69-6040DGD CBC WITH AUTO DIFFCorey John DO Work Phone: Start: 14-37-6609YBZC CBC WITH PLATELET NO DIFFERENTIALCorey John DO Work Phone: Start: 95-89-7539FY OB BPP W NON-STRESSKristina Carey [employer] Work Phone: Start: 88-17-0519Rakhy dip stick/tablet rgnt non-auto w/o micrscpCorey John DO Work Phone: Start: 21-65-1757PM OB BPP W NON-STRESSKristina Carey [employer] Work Phone: Start: 65-82-3921UW OB BPP W NON-STRESSKristina Carey [employer] Work Phone: Start: 58-18-6421Mhutq dip stick/tablet rgnt non-auto w/o micrscpCorey John DO Work Phone: Start: 62-32-8887Uidpn dip stick/tablet rgnt non-auto w/o micrscpAmy Sony PA Work Phone: Start: 03-64-3014Enbdj dip stick/tablet rgnt non-auto w/o micrscpCorey John DO Work Phone: start: 18-76-7481Qgyhk dip stick/tablet rgnt non-auto w/o micrscpAmy Sony HERNANDEZ Work Phone: Start: 35-42-5916GCY CBC WITH AUTO DIFFCorey John DO Work Phone: Start: 02-06-3678Foicu dip stick/tablet rgnt non-auto w/o micrscpCorey John DO Work Phone: Start: 54-69-3750KE OB ANATOMYCorey John DO Work Phone: Start: 25-57-9740TJ OB CERVICAL LENGTHCorey John DO Work Phone: Start: 87-59-4818KWPPTUJMZ VAGINITIS (HTRX)Josi HERNANDEZ Work Phone: Start: 49-89-8562Qhuzt dip stick/tablet rgnt non-auto w/o micrscpAmy Sony HERNANDEZ Work Phone: Start: 76-46-9670Jkymu dip stick/tablet rgnt non-auto w/o micrscpCorey John DO Work Phone: Start: 79-36-0628BSD,APTIMA HPV,AGE GDLNCorey [facility] DO Work Phone: Start: 58-25-5867Oiyhkn-up visitFollow-upVALERD SANDRAStart: 63-16-9970Ncrrv test visual color cmprsn methsValerielizabeth Sandra RAILROAD SIGNAL TECHNICIAN-[facility] Work Phone: Start: 46-62-1514Muykc depression screening assessment Matt Sandra RAILROAD SIGNAL TECHNICIAN-[facility] Work Phone: Start: 00-22-5565Hfdfdfpts streptococcus group Francisbradley Ceron RAILROAD SIGNAL TECHNICIAN-[facility] Work Phone: Start: 01-36-4982HMRZ INFLUENZA A/INFLUENZA B/SARS-COV-2 VERITORBrbrdaley Ceron RAILROAD SIGNAL TECHNICIAN-[facility] Work Phone: Start: 79-90-1504Ehojr depression screening assessment Cuco Ceron RAILROAD SIGNAL TECHNICIAN-[facility] Work Phone: Start: 85-03-7933Oaxjl depression screening assessment Matt Sandra RAILROAD SIGNAL TECHNICIAN-[employer] Work Phone: Start: 18-08-3737Mopgyovsdeb observation [Identifier] in Cervix by Cyto stainValelupilloelizabeth Sandra RAILROAD SIGNAL TECHNICIAN-[facility] Work Phone: H/O: sectionS/P sectionNorm Patino [employer] Work Phone: Plan of Treatment DateCare ActivityDetailAuthorStart: 12-16-2025 End: 37-80-6201Vhezzfr encounter procedureNOMS BCP OBStart: 09-18-2025 End: 93-50-6023ewsotiqiyr38/05/2025 10:30 AM EST Visit NOMS Michelle HERNANDEZ [address] [place] [address] Norm Patino, [employer] [address] [place] [phone] NOMS Michelle OBGYNStart: 08-05-2025 End: 66-76-6649Ihvczsz encounter jfafhadab09/22/2025 10:50 AM EDT Routine NOMS Michelle HERNANDEZ [address] [place] [address] Henok Lopez DO [address] [place], [place] [phone] NOMS Michelle OBGYNStart: 07-31-2025 End: 08-59-7859Acayqxcacpsx / ancillary services pznoohxtty49/17/2025 9:30 AM EDT Ancillary Procedure NOMS Michelle HERNANDEZ [address] [place] [address] NOMS Michelle OBGYNStart: 07-29-2025 End: 06-56-0693MTZWTTO, GROUP B STREP WITH SUSCEPTIBLITYCULTURE, GROUP B STREP WITH SUSCEPTIBLITY Lab Routine Third trimester ([facility]) Expected: 07/29/2025, Expires: 07/29/2026[facility] Work Phone: comment on above:Expected: 07/29/2025, Expires: 07/29/2026Start: 07-29-2025 End: 41-33-2463Xwawttw encounter /15/2025 9:20 AM EDT Routine [facility] [place] [facility] [address] [place], [id number] Josi Duenas PA [address] [place] [address] NOMS Michelle OBGYNStart: 07-15-2025 Influenza vaccinationPARK CITY HOSPITAL HealthcareStart: 07-10-2025 End: 52-31-2837Azyytgr encounter taskwprdy78/27/2025 2:10 PM EDT Routine [facility] [place] [facility]BG[facility] [address] [place], [id number] Henok Lopez DO [address] [place] [address] NOMS [place] OBGYNStart: 07-10-2025 End: 04-08-4771FT biophysical profile w non stress testUS biophysical profile w non stress test Imaging Routine Excessive growth affecting management of in third trimester, single or unspecified fetus ([facility]) Expected: 07/10/2025 (Approximate), Expires: 01/10/2026[facility] HealthcareComment on above:Expected: 07/10/2025 (Approximate), Expires: 01/10/2026Start: 07-10-2025 End: 73-21-8834DP for pregnancyUS OB follow up transabdominal approach Imaging Routine Excessive growth affecting managementof in third trimester, single or unspecified fetus ([facility]) Expected: 07/10/2025, Expires: 11/09/2025[facility] Work Phone: comment on above:Expected: 07/10/2025, Expires: 11/09/2025Start: 07-10-2025 End: 30-82-3717Zuobfixvrzri / ancillary services iusghpxhoq07/27/2025 1:30 PM EDT Ancillary Procedure [facility]BG[facility] [address] [place] [address] NOMS [place] OBGYNStart: 06-26-2025 End: 18-26-6206Gibjqyr encounter procedureNOMS [place] OBGYNComment on above: ArrivedStart: 06-11-2025 End: 62-41-4054Gpbkuje encounter cqunvhuzb20/29/2025 2:00 PM EDT Routine NOMS BCP OB [address] [place] [address] Henok Lopez DO [address] [place], [place] [phone] NOMS BCP OBStart: 06-11-2025 End: 77-97-6187WT for pregnancyUS OB follow up transabdominal approach Imaging Routine Excessive growth affecting managementof , antepartum, single or unspecified fetus ([facility]) Expected: 06/11/2025, Expires: 10/12/2025 [facility] Work Phone: comment on above:Expected: 06/11/2025, Expires: 10/12/2025Start: 06-11-2025 End: 99-34-9398Uxowipzytgvz / ancillary services qixgkfrzgm18/29/2025 1:30 PM EDT Ancillary Procedure [facility] BCP OB [address] [place] [address] NOMS BCP OBStart: 05-29-2025 End: 31-06-6624LG for pregnancyUS OB follow up transabdominal approach Imaging Routine Size of fetus inconsistent with dates in second trimester ([facility]) Expected: 05/29/2025, Expires: 09/29/2025[facility] Work Phone: comment on above:Expected: 05/29/2025, Expires: 09/29/2025Start: 05-29-2025 End: 48-02-8549Rqxwpgs encounter riekuylqr06/16/2025 1:20 PM EDT Routine NOMS BCP OB [address] [place] [address] Josi Duenas PA [address] [place], [place] [phone] NOMS BCP OBStart: 05-02-2025 End: 53-91-7558JPN panel - Blood by Automated countCBC Lab Routine Diabetes mellitus screening Expected: 05/02/2025 (Approximate), Expires: 05/02/2026[facility] Work Phone: comment on above:Expected: 05/02/2025 (Approximate), Expires: 05/02/2026Start: 05-02-2025 End: 63-69-4892Islsreowpnv of glucose 1 hour after glucose challenge for glucose tolerance testGlucose tolerance, 1 hour Lab Routine Diabetes mellitus screening Expected: 05/02/2025 (Approximate), Expires: 05/02/2026[facility] HealthcareComment on above:Expected: 05/02/2025 (Approximate), Expires: 05/02/2026Start: 05-02-2025 End: 64-98-3497Azmkktw encounter bxhjoqxwg84/19/2025 8:50 AM EDT Routine [facility] BCP OB [address] [place] [place] [phone] Henok Lopez DO [address] [place], [place] [phone] NOMS BCP OBStart: 04-03-2025 End: 68-78-1768Jasvf fetoprotein, maternalAlpha fetoprotein, maternal Lab Routine Need for maternal serum alpha-protein (MSAFP) screening Expected: 04/03/2025 (Approximate), Expires: 05/04/2025[facility] HealthcareComment on above: Expected: 04/03/2025 (Approximate), Expires: 05/04/2025Start: 04-03-2025 End: 31-69-4104VK for pregnancyUS OB 14+ weeks anatomy scan Imaging Routine Screening, , for anatomic survey Expected: 04/03/2025, Expires: 07/04/2025NOMS HealthcareComment on above:Expected: 04/03/2025, Expires: 07/04/2025Start: 04-03-2025 End: 83-58-3587Nsnbltu encounter procedureNOHOAG [facility] OBComment on above:Arrived Start: 13-59-6861Ljlcw BMI ScreeningAdult BMI ScreeningWadsworth-Rittman Hospitalca [facility] Start: 85-93-1670Oslplvewid ScreeningDepression ScreeningWadsworth-Rittman Hospitalca [facility] Start: 20-57-4519Fkknapt ScreeningTobacco ScreeningWadsworth-Rittman Hospitalca [facility] SystemStart: 02-26-2025 End: 43-00-3923Jalqkcu encounter owebolrmv44/15/2025 9:50 AM EDT Routine [facility] BCP OB [address] [place] [address] JohnHenok arevalo, DO [address] [place], [place] [phone] [facility]rivedOROV[facility]LE [facility] OBComment on above: ArrivedStart: 38-12-8610Htuvc BMI ScreeningAdult BMI ScreeningProUniversity Hospitals Tripoint Medical Centerca Health SystemStart: 98-02-3217Yrzprmdjko ScreeningDepression ScreeningProUniversity Hospitals Tripoint Medical Centerca [facility] SystemStart: 10-98-6454Dbhmdnj ScreeningTobacco ScreeningPorter Medical CenterMedica [facility] Start: 00-33-5206Vjdtd BMI Follow Up PlanAdult BMI Follow Up PlanProMedica Health SystemStart: 01-12-0155Okunr BMI ScreeningAdult BMI ScreeningProMedica Health SystemStart: 56-61-0511Yaztdtmvgb ScreeningDepression ScreeningProMedica Health SystemStart: 01-71-7626Nlnzymn ScreeningTobacco ScreeningProUniversity Hospitals Tri[facility] Medical Centerca Health SystemStart: 12-11-2024 End: 42-98-4446Kjjjywc encounter gpasgbrfd84/28/2025 1:20 PM EST Office Visit [facility] OB [address] [place] [phone] Henok Lopez, DO [address] [place] [address] ArrivedNOMS BCP OBComment on above:ArrivedStart: 40-29-3407Sjtrkhcol vaccinationInfluenza Vaccine (#1)NOMS HealthcareStart: 03-12-2024 End: 15-27-8547Xluxbtn encounter ndxtovxeh96/29/2024 11:20 AM EDT Office Visit [facility] [address] [place] [address] Matt Sandra, RAILROAD SIGNAL TECHNICIAN-[employer] [address] [place] [address] [facility] - Family MedicineStart: 02-21-2024 End: 78-76-0298Zkhostm encounter mtaxvahrw79/09/2024 9:40 AM EDT Office Visit [facility] [address] [place] [address] Matt Sandra, RAILROAD SIGNAL TECHNICIAN-[employer] [address] [place] [address] [facility] - Family MedicineStart: 02-08-2024 End: 99-86-4399Auepc monitorEvent monitor Cardiac Services Routine Syncope and collapse Expected: 02/08/2024, Expires: 02/07/2025[facility] Work Phone: Comment on above:Expected: 02/08/2024, Expires: 02/07/2025Start: 62-08-5446Hrfbzpsod for malignant neoplasm of cervixPap Smear [facility] SystemStart: 42-92-2799CWuK,Tdap and Td Vaccines (6 - Tdap) DTaP,Tdap and Td Vaccines (6 - Tdap)[facility] HospitalBacteria identified in Urine by CultureUrine culture Microbiology Routine Hematuria, unspecified type Ordered: 07/10/2025[facility] HealthcareComment on above:Ordered: 07/10/2025 End: 21-18-0023Bsbyv metabolic 2000 panel - Serum or PlasmaBasic Metabolic Panel Lab Routine Nausea 1 Occurrences starting 03/12/2024 until 03/12/2025ProEn[facility] Health SystemComment on above:1 Occurrences starting 03/12/2024 until 03/12/2025 End: 26-30-2364YEP W Auto Differential panel - BloodCBC auto differential Lab Routine Nausea 1 Occurrences starting 03/12/2024 until 03/12/2025ProUniversity Hospitals Tripoint Medical Centerca Work Phone: Comment on above:1 Occurrences starting 03/12/2024 until 03/12/2025HLAMYDIA TRACHOMATIS (GENITO/STI)CHLAMYDIA TRACHOMATIS (GENITO/STI) Lab Routine Screening examination for STI Ordered: 04/03/2025[facility]Comment on above:Ordered: 04/03/2025ytology Cervical or vaginal smear or scraping studyPap Smear Pathology and Cytology Routine Well woman exam with routine gynecological exam Ordered: 12/11/2024[facility] Work Phone: comment on above:Ordered: 12/11/2024Hepatic function [facility] CenterNeisseria gonorrhoeae DNA [Presence] in Unspecified specimen by MARION with probe detectionNeisseria gonorrhea DNA probe, direct Lab Routine Screening examination for STI Ordered: 04/03/2025[facility] LouisComment on above:Ordered: 04/03/2025SURESWAB(R) ADVANCED VAGINITIS PLUS, TMASURESWAB(R) ADVANCED VAGINITIS PLUS, TMA Pathology and Cytology Routine Screening examination for STI Ordered: 04/03/2025[facility] Work Phone: comment on above:Ordered: 04/03/2025US Abdomen limited [facility] Immunizations Immunization DateImmunizationNotesCare YeedjjtrPnybxgae29-82-7616ggicjkmmuj, tetanus toxoids and acellular pertussis vaccineValerie Sandra RAILROAD SIGNAL TECHNICIAN-[employer] Work Phone: [facility]09-16-2002measles, mumps and rubella virus vaccineValerie Sandra RAILROAD SIGNAL TECHNICIAN-[employer] Work Phone: [facility] HospitalIbhlso23-08-2656irhcqfsrwl vaccine, inactivatedValerie Sandra RAILROAD SIGNAL TECHNICIAN-[employer] Work Phone: [facility] HospitalJlmnrw08-49-8082nuyouqewwy, tetanus toxoids and acellular pertussis vaccineValerie Sandra RAILROAD SIGNAL TECHNICIAN-[employer] Work Phone: [facility] HospitalOubebg63-17-0628xknkprtgnpp influenzae type b vaccine, conjugate unspecified formulationValerie Sandra RAILROAD SIGNAL TECHNICIAN-[employer] Work Phone: [facility]08-01-1997measles, mumps and rubella virus vaccineValerie Sandra RAILROAD SIGNAL TECHNICIAN-[employer] Work Phone: [facility] HospitalNaiuqr78-42-6221uswwupjkiz, tetanus toxoids and acellular pertussis vaccineValerie Sandra RAILROAD SIGNAL TECHNICIAN-[employer] Work Phone: [facility] HospitalTvrfgm76-81-0447tofxxenklbs influenzae type b vaccine, conjugate unspecified formulationValerie Sandra RAILROAD SIGNAL TECHNICIAN-[employer] Work Phone: [facility] HospitalSjwdjh16-04-9364qnzrypimb B vaccine, adult dosageValerie Sandra RAILROAD SIGNAL TECHNICIAN-[employer] Work Phone: [facility] HospitalLtdzne59-80-9010eibepcyfff vaccine, inactivatedValerie Sandra RAILROAD SIGNAL TECHNICIAN-[employer] Work Phone: [facility] HospitalFwvbli24-91-3865dijdxqbkxk, tetanus toxoids and acellular pertussis vaccineValerie Sandra RAILROAD SIGNAL TECHNICIAN-[employer] Work Phone: [facility] HospitalExbuqm97-58-8192gyskutuwart influenzae type b vaccine, conjugate unspecified formulationValerie Sandra RAILROAD SIGNAL TECHNICIAN-[employer] Work Phone: [facility] HospitalNwzdjs79-27-5160wijuncidor vaccine, inactivatedValerie Sandra RAILROAD SIGNAL TECHNICIAN-[employer] Work Phone: [facility] HospitalYxqmtb95-45-4922vhryjlxulm, tetanus toxoids and acellular pertussis vaccineValerie [facility] RAILROAD SIGNAL TECHNICIAN-[facility] Work Phone: [facility] HospitalFcncpz06-89-4414lvhltrwfrnh influenzae type b vaccine, conjugate unspecified formulationValerie [facility] RAILROAD SIGNAL TECHNICIAN-[facility] Work Phone: [facility] HospitalKcfrwp25-07-7225zyjgpdxru B vaccine, adult dosageValerie Sandra RAILROAD SIGNAL TECHNICIAN-[facility] Work Phone: [facility] HospitalDwzawo87-14-4672txlegxrbka vaccine, inactivated[facility] Work Phone: [facility] HospitalLgvzjr83-17-2230cxaxzawlp B vaccine, adult dosageValerie Bournewood HospitalN-[facility] Work Phone: [facility] Payers DatePayer CategoryPayerPolicy ID2023Medicaid [id number] [id number] 2..1.676377.3.57[id number] 2.0.1.850733.3.57[id number] 2.0.1.799245.3.57[id number] 2..1.574702.3.57[id number] 2.0.1.404796.3.57[id number] 2.0.1.790446.3.57[id number] 2.16840.1.446927.3.57[id number] 2.16840.1.184166.3.57[id number] 2.16840.1.396985.3.579.[id number] 2.16840.1.617475.3.57[id number] 2.840.1.328269.3.57[id number] 2.16840.1.494852.3.57[id number] 2.840.1.875121.3.57[id number] 2.840.1.748981.3.57[id number] 2.840.1.715720.3.57[id number] 2.840.1.607360.3.57[id number] 2.0.1.225398.3.57[id number] 2.16840.1.366062.3.57[id number] 2.16840.1.074842.3.57[id number] 2.840.1.841478.3.57[id number] 2.16840.1.472195.3.57[id number] 2.16.840.1.376936.3.57[id number] Social History DateTypeDetailFacilityStart: 07-04-2023 End: 32-19-9153Ftaqwhm smoking status NHISNever smoked tobacco (finding) [facility]: 48-85-1959Rxu Assigned At BirthFemale [facility]: 07-04-2023 End: 40-54-7084Qkvmyta use and exposureSmokeless tobacco non-userTogus VA Medical Center SystemStart: 12-05-2023 End: 58-13-1389Rnaiqqtrq beverage intakeLifetime non-drinker (finding)[facility] HealthcareStart: 12-05-2023 End: 16-80-9216Ucfyagl of Social functionProEncompass Health Rehabilitation [facility] Health SystemStart: 12-05-2023 End: 45-80-2414Wnfsqgn use panelProCoshocton Regional Medical [facility] SystemStart: 57-65-1075Mtb assigned at birthNot on fileTogus VA Medical Center SystemStart: 01-03-2024 End: 39-35-6925Eqicnrt intakeCurrent non-drinker of alcohol (finding)ProMedic Health SystemDo you belong to any clubs or organizations such as denominational groups, unions, fraternal or athletic groups, or school groups?NoPAcadian Medical Center Health System Are you now , , , , never or living with a partner?Never marriedProMedica Health SystemHow often to you have a drink containing alcohol?Monthly or lessProMedica Health SystemHow many standard drinks containing alcohol do you have on a typical day?1 or 2ProMedgreene county hospital Health SystemHow often do you have 6 or more drinks on 1 occasion?Less than monthly [facility] Health SystemHow hard is it for you to pay for the very basics like food, housing, medical care, and heatingSomewhat hardProCoshocton Regional Medical Center System Adolescent depression screening omyygxhhvo6SguHcimse Health SystemDo you feel stress - tense, restless, nervous, or anxious, or unable to sleep at night because yourmind is troubled all the time - these days [OSQ]Rather muchTogus VA Medical Center SystemStart: 24-28-3365Gtrdksfkx32AppPcbkgr Health SystemStart: 57-61-3775SfwomccuhMTRNBaptist Hospital Clinical Notes 01-03-2024 to 08-12-2025 Note Date & TsamIeeiIrtsntjt34-74-3159 History of Present illness Narrative* Norm Patino [...] nursing note reviewed. Exam conducted with a glue wheel operator present. Vitals: Estimated body mass index [...] of: Norm Patino NP documented in this encounterThe Rehabilitation Institute of St. LouisZupprpjdtx83-95-1495 History of Present illness Narrative* Neyda Goldberg [...] nursing note reviewed. Exam conducted with a glue wheel operator present. Vitals: Estimated body mass index is 35.1 kg/m as calculated from the following: Height as of 11/30/22: 5' 3 . Weight as of this encounter: 198 lb 1.9 oz. BP: 110/68 Patient's last menstrual period was 11/18/2024. ASSESSMENT & PLAN ICD-10-CM 1. Third trimester ([facility]) Z34.93 CULTURE, GROUP B STREP WITH SUSCEPTIBLITY CULTURE, GROUP B STREP WITH SUSCEPTIBLITY POCT urinalysis dipstick manually resulted 2. 36 weeks gestation of ([facility]) Z3A.36 POCT urinalysis dipstick manually resulted Patient presents today for a routine obstetrics appointment. Patient is currently 36w1d with a Estimated Date of Delivery: 08/25/25. Discussed delivery next Tuesday for LGA. Patietn and spouse agreeable for IOL. Patient to sign IOL consents prior to leaving office today. [facility] to arrive at [facility] on Tuesday night on 08/04/25 @6:30pm on Tuesday. GBS was obtained without difficulty and patientsigned IOL consent. Spoke with [facility] at [facility] to add patient to the books for Tuesday. Patient to schedule for 6 week appointment. Documented by Neyda Goldberg LPN on behalf of: Henok Lopez DO documented in this encounterThe Rehabilitation Institute of St. LouisGlhpaekvtr97-79-3683 History of Present illness Narrative* Norm Patino [...] ASSESSMENT & PLAN ICD-10-CM 1. Third trimester ([facility]) Z34.93 POCT urinalysis dipstick manually resulted 2. 33 weeks gestation of ([facility]) Z3A.33 Return OB: Patient presents [...] of: Henok Lopez DO documented in this encounterThe Rehabilitation Institute of St. LouisHnmsqdlzli00-60-4928 History of Present illness Narrative* DAVID Reid [...] ASSESSMENT & PLAN ICD-10-CM 1. Third trimester ([facility]) Z34.93 POCT urinalysis dipstick manually resulted 2. 31 weeks gestation of ([facility]) Z3A.31 Return OB: Patient presents [...] behalf of: DAVID Reid documented in this encounterThe Rehabilitation Institute of St. LouisXmocpbgkhz33-53-2650 History of Present illness Narrative* Audrey WeirBETHEL [...] nursing note reviewed. Exam conducted with a glue wheel operator present. Vitals: Estimated body mass index is 34.06 kg/m as calculated from the following: Height as of 11/30/22: 5' 3 . Weight as of this encounter: 192 lb 4 oz. BP: 122/68 Patient's last menstrual period was 11/18/2024. ASSESSMENT & PLAN ICD-10-CM 1. Third trimester ([facility]) Z34.93 POCT urinalysis dipstick manually resulted 2. 29 weeks gestation of ([facility]) Z3A.29 3. Anemia affecting in third trimester ([facility]) O99.013 iron polysaccharides (ProFe) 391.3 (180 Fe) MG capsule 4. Excessive growth affecting management of , antepartum, single or unspecified fetus ([facility]) O36.60X0 Return OB: Patient presents [...] of: Henok Lopez DO documented in this encounterThe Rehabilitation Institute of St. LouisIpffizrqlq31-20-8158 History of Present illness Narrative* DAVID Reid [...] ASSESSMENT & PLAN ICD-10-CM 1. Second trimester ([facility]) Z34.92 POCT urinalysis dipstick manually resulted 2. 27 weeks gestation of ([facility]) Z3A.27 Return OB: Patient presents [...] behalf of: DAVID Reid documented in this encounterThe Rehabilitation Institute of St. LouisAutawffbox30-93-2002 History of Present illness Narrative* DAVID Reid [...] Glucose tolerance, 1 hour 2. Second trimester ([facility]) Z34.92 POCT urinalysis dipstick manually resulted 3. 23 weeks gestation of ([facility]) Z3A.23 Return OB: Patient presents [...] of: Henok Lopez DO documented in this encounterThe Rehabilitation Institute of St. LouisQjyzbdzpnx64-19-5444 History of Present illness Narrative* DAVID Reid [...] for routine OB appointment. Documented by Zulma Phleps MA on behalf of: DAVID Reid documented in this encounterThe Rehabilitation Institute of St. LouisFmybcyysah89-89-6359 History of Present illness Narrative* Audrey Weir, [...] nursing note reviewed. Exam conducted with a glue wheel operator present. Vitals: Estimated body mass index [...] or undercooked meat, and stay away from [facility]. Patient has been consulted regarding any further do's and don'tsof . Patient voiced understanding and all questions and concerns were answered. Orders Placed This Encounter Procedures POCT urinalysis dipstick manually resulted Follow Up: Patient is to return in 4 weeks for routine OB appointment. Documented by Audrey Weir LPN on behalf of: Henok Lopez DO documented in this encounterThe Rehabilitation Institute of St. LouisQxqlgugrcd45-38-8377 History of Present illness Narrative* Audrey Weir [...] nursing note reviewed. Exam conducted with a glue wheel operator present. Vitals: Estimated body mass index [...] of: Henok Lopez DO documented in this encounterThe Rehabilitation Institute of St. LouisBujlmcpjuq76-01-3031 Evaluation note* Author [facility] 3:63ix60-libs-ktn female referred to the GI clinic for evaluation of upper abdominal pain. +upper abdominal pain that has resolved few months ago. She states that she still gets intermittent abdominal discomfort but less severe than how it was Will check CBC, LFTs and Lipase Will arrange US of the upper abdomen [facility] Work Phone: [phone]) 932-562304-29-2024 History of Present illness Narrative* Matt Sandra, KIM-YVES - 03/12/2024 11:20 AM EDT Images from the original note were not included. [address] [facility] [address] SUBJECTIVE: Patient ID: Brandie Bruno [...] 10/12/2017 Performed by Sarabjit Odom MD at [facility] TONSILLECTOMY WISDOM TOOTH EXTRACTION Past Medical [...] JAY Knight 03/12/24 1305 documented in [facility] encounterMer[facility]03[facility]24 Miscellaneous Notes* Telephone Encounter - Mikala Murphy CMA - 02/09/2024 9:06 AM EDT Pt called and was in to see you yesterday 02/07 and is stuffed up today and coughing up yellow. Could you send in something to her local pharmacy? * Telephone Encounter - JAY Knight - 02/09/2024 9:06 AM EDT Christiano sent to [facility]. Please remind her to do alarm security or surveillance monitor as ordered by Melinda. * Telephone Encounter - Mikala Murphy CMA - 02/09/2024 9:06 AM EDT I called and read your note. Pt will get scheduled after this illness documented in this encounterMer[facility]03-28-2024 Telephone encounter Note* Telephone Encounter - Mikala Murphy CMA - 02/09/2024 9:06 AM EDT Pt called and was in to see you yesterday 02/07 and is stuffed up today and coughing up yellow. Could you send in something to her local pharmacy? [facility]03-28-[facility] Telephone encounter Note* Telephone Encounter - JAY Knight - 02/09/2024 9:06 AM EDT [facility]. Please remind her to do alarm security or surveillance monitor as ordered by Melinda. [facility]03-28-2024 Telephone encounter Note* Telephone Encounter - Mikala Murphy CMA - 02/09/2024 9:06 AM EDT I called and read your note. Pt will get scheduled after this illness [facility]03-27-[facility] History of Present illness Narrative* JAY Little - 02/08/2024 11:40 AM EDT [address] [facility] [address] Patient: Brandie Bruno Date of : 1995 [...] 10/12/2017 Performed by Sarabjit Odom MD at [facility] TONSILLECTOMY WISDOM TOOTH EXTRACTION Current Outpatient [...] 1255 documented in [address] encounterMer[facility]02-20-2024 History of Present illness Narrative* JAY Knight - 01/03/2024 10:15 AM EST Images from the original note were not included. [address] [facility] [address] SUBJECTIVE: Patient ID: Brandie Bruno is a 28 y.o. female. Chief Complaint Patient presents with Anxiety Brandie presents today wishing to restart medication for her moods. She does feel she ideally depressed. Her concern is anxiety, irritability, and feels short tempered. Is managing deal of personal stressors. Custody issues with her children's father who lives out of state. Has graduated from [employer]. 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 Depression [...] 10/12/2017 Performed by Sarabjit Odom MD at [facility] TONSILLECTOMY WISDOM TOOTH EXTRACTION Past Medical [...] JAY Knight 01/03/24 1047 documented in this encounterTogus VA Medical Center SystemEvaluation note* Diagnosis Well woman exam with routine gynecological exam Routine gynecological examination documented in this encounter [facility] HealthcareEvaluation note* Diagnosis Anxiety and depression- Primary documented in this encounter [facility] SystemEvaluation note* Diagnosis Acute bacterial sinusitis- Primary Acute sinusitis, unspecified documented in this encounter [facility] SystemEvaluation note* Diagnosis Viral upper respiratory tract infection- Primary Acute upper respiratory infections of unspecified site Chills Chills (without fever) Epigastric pain Abdominal pain, epigastric Syncope and collapse Gastroesophageal reflux disease, unspecified whether esophagitis present documented in this encounter [facility] SystemEvaluation note* Diagnosis Anxiety and depression- Primary Nausea Nausea alone Syncope, unspecified syncope type documented in this encounter [facility] SystemEvaluation note* Diagnosis Second trimester state, incidental 12 weeks gestation of documented in this encounter [facility] HealthcareEvaluation note* Diagnosis Second trimester state, incidental 18 weeks gestation of Screening, , for anatomic survey Encounter for anatomic survey Screening examination for STI Need for maternal serum alpha-protein (MSAFP) screening documented in this encounter [facility] HealthcareEvaluation note* Diagnosis Diabetes mellitus screening [...] be sent through Care Everywhere. * Depression (Jamaican) documented in this encounterProCoshocton Regional Medical Center SystemInstructionsNot on file documented in this encounterTogus VA Medical Center SystemInstructions* Attachments The following attachments cannot be sent through Care Everywhere. * Acid Reflux and GERD in Adults Discharge Instructions (Jamaican) documented in this encounterTogus VA Medical Center SystemInstructions* Attachments The following attachments cannot be sent through Care Everywhere. * Nausea and Vomiting, Adult (Jamaican) documented in this encounterTogus VA Medical Center System Summary Purpose Family History No Family [...] section and content) DATE CREATED AUTHOR 05/10/2018 [facility] DATE CREATED AUTHOR AUTHOR'S ORGANIZ ATION 12/02/2022 [facility] DATE CREATED AUTHOR AUTHOR'S ORGANIZ ATION 02/28/2024 [facility] DATE CREATED AUTHOR AUTHOR'S ORGANIZ ATION 03/13/2024 [facility] DATE CREATED AUTHOR AUTHOR'S ORGANIZ ATION 08/18/2025 [facility] EPIC Care Teams (unrecognized [...] MemberRelationshipSpecialtyStart DateEnd Date Radha Calix PA [address] [place] [address] PCP - [facility]OM[facility] Diana [facility]05/14/24Team MemberRelationshipSpecialtyStart DateEnd Date Radha Calix PA [address] [place] [address] PCP - NOM[facility] Diana [facility]05/14/24Team MemberRelationshipSpecialtyStart DateEnd Date Matt Sandra, RAILROAD SIGNAL TECHNICIAN-MUFF [employer]ER [address] [place] [address] PCP - GeneralFamily Racdfmsc89/3/19Team MemberRelationshipSpecialtyStart DateEnd Date Matt Sandra, RAILROAD SIGNAL TECHNICIAN-[facility] [address] [place] [address] PCP - GeneralFamily Pxrhoaia61/3/19Team MemberRelationshipSpecialtyStart DateEnd Date Matt Sandra, RAILROAD SIGNAL TECHNICIAN-MUFF WINDER [address] [place] [address] PCP - GeneralFamily Trunqveq05/3/19Team MemberRelationshipSpecialtyStart DateEnd Date Radha Calix PA NPI: PCP - [facility]Team MemberRelationshipSpecialtyStart DateEnd Date Radha Calix PA NPI: PCP - [facility]7Team MemberRelationshipSpecialtyStart DateEnd Date Radha Calix PA NPI: PCP - [facility] MemberRelationshipSpecialtyStart DateEnd Date Radha Calix PA NPI: PCP - [facility]05/14/24Team MemberRelationshipSpecialtyStart DateEnd Date Radha Calix PA NPI: PCP - [facility]05/14/24Team MemberRelationshipSpecialtyStart DateEnd Date Radha Calix PA NPI: PCP - [facility]7Team MemberRelationshipSpecialtyStart DateEnd Date Radha Calix PA NPI: PCP - [facility]7Team MemberRelationshipSpecialtyStart DateEnd Date Radha Calix PA NPI: PCP - [facility]7Team MemberRelationshipSpecialtyStart DateEnd Date Radha Calix PA PCP - [facility] MemberRelationshipSpecialtyStart DateEnd Date Radha Calix PA NPI: PCP - [facility]7Team MemberRelationshipSpecialtyStart DateEnd Date Radha Calix PA NPI: PCP - NOMRuth Ortiz [facility]05/14/24 Goals (unrecognized section and content) Goals [...] BE BASED ON THE PRIMARY CLINICAL RECORDS. [facility]. provides no warranty or guarantee of the accuracy or completeness of information in this document.
--- NOTE | 2025-09-16 09:22 | PC.NURSE ---
Tara and Ghislaine arrive for weight check. Mom states is no longer using the shield for latching. States decided after last visit, did not want to keep using the shield and baby has done well without it. Infant awake and alert, small smile when talked to. To scales and is 11-4 today. Up from 10-9 last visit. Mother very pleased and proud of herself and Ghislaine. No need for further appointments. Aware will call for questions or concerns. Leaves ambulatory with .
== END 2025-09-16 08:21 | disposition home or self-care (01) ==
LOC: FBCO 08:21
PROVIDERS: PCP Nurse Practitioner; Visit Provider Obstetrics & Gynecology
DX: Z39.1 Encounter for care and examination of lactating mother (principal)